=== PATIENT | female | born 1955 | race Caucasian/White ===

== ENCOUNTER 2022-11-18 13:11 | Outpatient (OUT) | payer MEDICARE, SELFPAY ==
--- NOTE | 2022-11-18 13:31 | XR_ITS ---
[facility] [place] [id number] Patient Name: MERCEDES EAGLE MRN: [id number] date: 1955 Sex: F Assigned Patient Location: [facility] Current Patient Location: 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 FINDINGS: BONES:Mild narrowing of the medial joint space and small periarticular degenerative osteophytes. No fracture, dislocation, or bone lesion. SOFT TISSUES:No visible soft tissue swelling. EFFUSION:None visible. OTHER: Negative. IMPRESSION: 1. No acute bone abnormality. 2. Mild-moderate degenerative joint disease. Electronically authenticated by: NOÉ ALEXANDRA Date: 11/18/2022 16:12
== END 2022-11-18 13:12 ==
PROVIDERS: PCP Family Medicine; Visit Provider Family Medicine
DX: M17.12 Unilateral primary osteoarthritis, left knee (principal)
CPT/HCPCS: 73562

== ENCOUNTER 2023-04-27 09:59 | Outpatient (OUT) | payer MEDICARE, SELFPAY ==
--- NOTE | 2023-04-27 10:06 | MM_ITS ---
Patient Name: MERCEDES EAGLE MR#: [id number] : 1955 Exam Date: 04/27/2023 Ordering Doctor: DR ARETHA CRUZ . RADIOLOGY REPORT PROCEDURE: MM TOMOSYNTHESIS SCREENING BI COMPARISON: MG MAMM SCREEN 3D ARCELIA CAD, 04/23/2022. MG MAMM SCREEN 3D ARCELIA CAD, 04/17/2021. MG MAMM SCREEN ARCELIA W CAD, 04/16/2020. MAMMO ARCELIA SCREEN, 02/27/2016. INDICATIONS: Screening Calculator Name NCI Breast Cancer Risk Assessment Tool 5 Year Breast Cancer Risk Not Reported. Lifetime Breast Cancer Risk Not Reported. Personal Breast Cancer No Personal Ovarian Cancer No Treatments None Family Cancers None LOCATION: [facility] BREAST COMPOSITION: Scattered areas fibroglandular density. FINDINGS: DIAGNOSTIC CATEGORY 2--BENIGN FINDING: RIGHT BREAST: No significant suspicious finding. Scattered benign-appearing calcifications are present. No significant change has occurred. LEFT BREAST: No significant suspicious finding. Scattered benign-appearing calcifications are present. No significant change has occurred. RECOMMENDATIONS: ROUTINE MAMMOGRAM AND CLINICAL EVALUATION IN 12 MONTHS. PLEASE NOTE: A NORMAL MAMMOGRAM DOES NOT EXCLUDE THE POSSIBILITY OF BREAST CANCER. A CLINICALLY SUSPICIOUS PALPABLE LUMP SHOULD BE BIOPSIED. Dictated by: Ulises Calderon M.D. on 04/28/2023 at 15:25 Approved by: Ulises Calderon M.D. on 04/28/2023 at 15:27
== END 2023-04-27 10:00 | disposition home or self-care (01) ==
LOC: MAMMO 09:59
PROVIDERS: PCP Family Medicine; Visit Provider Family Medicine
DX: Z12.31 Encounter for screening mammogram for malignant neoplasm of breast (principal)
CPT/HCPCS: 77063; 77067

== ENCOUNTER 2023-08-15 07:15 | Emergency (ER) | payer MEDICARE, SELFPAY ==
[2023-08-15 07:20] VITALS: BP 158/92; PULSE 80; RESP 18; TEMP 36.9; O2SAT 97; BMI 28.5
--- OUTSIDE RECORDS SUMMARY | 2023-08-15 07:22 | XMS_ITS | CCD ---
Author Name Unknown Address [address] [place] [address] Organization [facility] Care Team Providers Care Automotive Refinisher Name Role Phone Olivia Dean Unavailable TIMMY TINSLEY Referring Unavailable TIMMY TINSLEY Attending Unavailable Aretha Brewster Primary Care Physician JESSICA PACHECO Attending Unavailable YAZ ., JESSICA Admitting Unavailable ZIEBAYDEN, DR ULISES Pineda Consulting Unavailable HOY ., DR CARIAS Primary Care Unavailable HAIDER .MAGNO Consulting Unavailable NILL ., DR POE Admitting Unavailable HOY ., DR CARIAS Primary Care Unavailable NILL ., DR POE Consulting Unavailable NILL ., DR POE Attending Unavailable NAKIA TARANGO Consulting Unavailable LILIAN II, AVELINO Consulting Unavailable NILL ., DR POE Attending Unavailable HOY ., DR CARIAS Primary Care Unavailable NILL ., DR POE Admitting Unavailable HOY ., DR CARIAS Admitting Unavailable HOY ., DR CARIAS Primary Care Unavailable HOY ., DR CARIAS Consulting Unavailable HOY ., DR CARIAS Attending Unavailable ZIEBER, DR ULISES Pineda Consulting Unavailable HOY ., DR CARIAS Attending Unavailable HOY ., DR CARIAS Admitting Unavailable HOY ., DR CARIAS Primary Care Unavailable HOY ., DR CARIAS Consulting Unavailable HOY ., DR CARIAS Admitting Unavailable HOY ., DR CARIAS Primary Care Unavailable HOY ., DR CARIAS Consulting Unavailable HOY ., DR CARIAS Attending Unavailable WEST, DR STEPHANIE Olivera Consulting Unavailable HOY ., DR CARIAS Primary Care Unavailable HOY ., DR CARIAS Admitting Unavailable HOY ., DR CARIAS Consulting Unavailable HOY ., DR CARIAS Attending Unavailable ELVER, DR STEPHANIE Olivera Consulting Unavailable Lui GAMINO Attending Unavailable DAYLLui Attending Unavailable Sarah Sargent Unavailable Allergies Allergy Classification Reported Allergen(s) Allergy Type Date of Onset Reaction(s) Facility (4 sources) Erythromycin; Translations: [erythromycin] Drug Allergy GI upset [facility] [place] (5 sources) Latex; Translations: [LATEX] Propensity to adverse reactions 05-15-20 Inflammatory dermatosis (disorder) [facility] Repository (2 sources) Penicillin G Drug Allergy anaphylaxis [facility] Other (3 sources) Penicillins; Translations: [PENICILLINS] Propensity to adverse reactions to drug (disorder) 05-15-20 Anaphylaxis (disorder) [facility] Repository (2 sources) ERYTHROMYCIN BASE; Translations: [ERYTHROMYCIN BASE] Propensity to adverse reactions to drug (disorder) 05-15-20 [facility]ository (1 source) natural latex rubber Drug allergy (disorder) 09-23-19 23 [facility] Repository (1 source) Penicillin Drug Allergy [facility] Repository Medications Current Medications Medication Drug Class(es) Dates Sig (Normalized) Sig (Original) aspirin 81 mg delayed release oral tablet (1 source) Platelet Aggregation Inhibitor, Nonsteroidal Anti-inflammatory Drug Start: 09-10-2022 take 1 tablet by mouth once daily aspirin 81 mg Oral EC Tab 81 mg = 1 tab(s), Oral, Daily, Refills(s) 0 Start Date: 09/10/22 Status: Ordered calcium carbonate 1500 mg oral tablet (1 source) Start: 08-29-2022 calcium (as carbonate) 600 mg oral tablet 1,200 mg = 2 tab(s), Oral, Daily, Refills(s) 0 Start Date: 08/29/22 Status: Ordered celecoxib 400 mg oral capsule (2 sources) Nonsteroidal Anti-inflammatory Drug Start: 08-29-2022 take 1 capsule by mouth once daily Celebrex 400 mg oral capsule 400 mg = 1 cap(s), Oral, Daily, Refills(s) 0 Start Date: 08/29/22 Status: Ordered CeleBREX Active cephalexin 500 mg oral capsule (1 source) Cephalosporin Antibacterial Start: 11-12-2021 take 1 capsule by mouth every eight hours Cephalexin 500 MG 1 capsule Orally three times a day for 10 day(s) October, Active dextromethorphan hydrobromide 1.5 mg/ml / pyrilamine maleate 1.5 mg/ml oral solution (1 source) Uncompetitive S-twucaa-X-aspartat e 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, Sigma-1 Agonist Start: 06-14-2023 take 10 mL by mouth every eight hours [place] DM 7.5-7.5 MG/5ML 10 mL Orally every 8 hours for 5 days May, Active Multi Vitamins oral tablet (1 source) Start: 09-10-2022 take 1 tablet by mouth once daily Multi Vitamins oral tablet 1 tab(s), Oral, Daily, Refill(s) 0 Start Date: 09/10/22 Status: Ordered nitroglycerin 0.4 mg sublingual tablet (1 source) Nitrate Vasodilator Start: 08-29-2022 nitroglycerin 0.4 mg sublingual Tab 0.4 mg = 1 tab(s), SubLingual, q5min, PRN for chest pain, Refills(s) 0 Start Date: 08/29/22 Status: Ordered pantoprazole 40 mg delayed release oral tablet (2 sources) Proton Pump Inhibitor Start: 08-29-2022 take 1 tablet by mouth once daily Protonix 40 mg Tab-DR 40 mg = 1 tab(s), Oral, Daily, Refills(s) 0 Start Date: 08/29/22 Status: Ordered predniSONE 20 mg oral tablet (1 source) take 1 tablet by mouth every twenty-four hours predniSONE 20 MG 1 tablet Orally Once a day Active triamcinolone acetonide 1 mg/ml topical cream (1 source) Corticosteroid Start: 11-12-2021 Triamcinolone Acetonide 0.1 % 1 application Externally 2 times a day for 7 day(s) Apply a small amount to the insect bite on the left lower leg twice a day for 7 days October, Active Vitamin D3 2000 intl units oral Tab (1 source) Start: 08-29-2022 take 1 tablet by mouth once daily Vitamin D3 2000 intl units oral Tab 50 mcg, Oral, Daily, tab(s), Refills(s) 0 Start Date: 08/29/22 Status: Ordered Problems Active Problems Problem Classification Problem Date Documented Date Episodic/Chronic Cardiac dysrhythmias (1 source) Bradycardia 08-29-2022 Episodic Disorders of lipid metabolism (1 source) Hyperlipidemia, unspecified; Translations: [HYPERLIPIDEMIA UNSPECIFIED] Onset: 01-14-2022 Chronic Esophageal disorders (2 sources) Gastroesophageal reflux disease; Translations: [Gastro-esophageal reflux disease without esophagitis] Onset: 10-02-2022 08-29-2022 Chronic Menopausal disorders (4 sources) Other primary ovarian failure; Translations: [OTHER PRIMARY OVARIAN FAILURE] Onset: 04-28-2022 Chronic Osteoarthritis (1 source) Osteoarthritis 08-29-2022 Chronic Other aftercare (1 source) ocean transportation intermediary (current) use of aspirin; Translations: [DIRECTOR BIOMEDICAL ENGINEERING CURRENT USE OF ASPIRIN] Onset: 10-02-2022 Episodic Other connective tissue disease (2 sources) Presence of left artificial hip joint; Translations: [Presence of left artificial hip joint] Onset: 05-15-2022 Chronic Other nutritional; endocrine; and metabolic disorders (1 source) Body mass index 30+ - obesity 09-10-2022 Chronic Other screening for suspected conditions (not mental disorders or infectious disease) (9 sources) Screening for malignant neoplasm of colon done; Translations: [Encounter for screening for malignant neoplasm of colon] Onset: 04-23-2022 Episodic Other upper respiratory disease (2 sources) Seasonal allergy; Translations: [Other seasonal allergic rhinitis] Chronic Other upper respiratory disease (1 source) Seasonal allergic rhinitis 08-29-2022 Chronic Other upper respiratory disease (1 source) Nasal congestion Episodic Unclassified (1 source) Patient encounter status 09-10-2022 Viral infection (1 source) Other specified viral diseases Episodic Past or Other Problems Problem Classification Problem Date Documented Da te Episodic/Chronic Deficiency and other anemia (1 source) Anemia, unspecified; Translations: [ANEMIA UNSPECIFIED] Onset: 01-14-2022 Episodic Diabetes mellitus without complication (1 source) Other abnormal glucose; Translations: [OTHER ABNORMAL GLUCOSE] Onset: 01-14-2022 Episodic E Codes: Natural/environment (1 source) Bitten or stung by nonvenomous insect and other nonvenomous arthropods, initial encounter Onset: 11-12-2021 Resolved: 11-12-2021 Episodic Malaise and fatigue (1 source) Other fatigue; Translations: [OTHER FATIGUE] Onset: 01-14-2022 Episodic Nonspecific chest pain (7 sources) Chest pain, unspecified; Translations: [Other chest pain] Onset: 03-24-2022 Episodic Other aftercare (1 source) Other skilled nursing (current) drug therapy; Translations: [OT DIRECTOR BIOMEDICAL ENGINEERING CURRENT DRUG THERAPY] Onset: 01-14-2022 Episodic Other bone disease and musculoskeletal deformities (1 source) Other specified disorders of bone density and structure, unspecified site; Translations: [[facility] D/O BONE DEN STRUCT UNS SITE] Onset: 05-01-2022 Episodic Screening and history of mental health and substance abuse codes (1 source) Personal history of nicotine dependence; Translations: [PERSONAL HISTORY OF NICOTINE DEPEND] Onset: 03-26-2022 Episodic Superficial injury; contusion (1 source) Insect bite (nonvenomous), left lower leg, initial encounter Onset: 11-12-2021 Resolved: 11-12-2021 Episodic Results Test Name Value Interpretation Reference Range Facility COVID/FLU/RSV RT-PCRon 06-14 SARS-CoV-2 (COVID-19) RNA VIVEK+probe Ql (Unsp spec) Negative [facility] Other COVID/FLU/RSV RT-PCR Negative [facility] Other [facility]FLU[facility] Other Outside Colonoscopyon 2022 Outside Colonoscopy [id number] 0#1.00CD:127 [facility] Reminderson 10-02-2022 Reminders - From: Kisha Samuel LPN To: N - Clinical; Sent: 10/02/2022 08:43:18 EDT Show up: 08/31/2032 07:00:00 EDT Subject: colonoscopy recall Due Date/Time: 10/01/2032 07:00:00 EDT Reminder/Recall Patient is due for screening colonoscopy 10/01/2032. [facility] Consent for Procedure/Surger yon 09-11-2022 Consent for Procedure/Surgery [id number] #1.00CD:127 [facility] Facesheeton 09-11-2022 Facesheet [id number] #1.00CD:127 [facility] Pre-Certification Formon Pre-Certification Form [id number] 1#1.00CD:127 [facility] Ambulatory Visit Summaryon 0 09-10-2022 Ambulatory Visit Summary BRIE EAGLE :1955 Visit Date:09/10/2022 Ambulatory Visit Instructions Your Care Team Attending Physician - ТАТЬЯНА HERNANDEZ, Lui Pineda Primary Care Physician - Ney HERNANDEZ, Aretha This Is Your Medications List Contact prescribing physician if questions or concerns aspirin (aspirin 81 mg Oral EC Tab) calcium carbonate (calcium (as carbonate) 600 mg oral tablet) celecoxib (Celebrex 400 mg oral capsule) cholecalciferol (Vitamin D3 2000 intl units oral Tab) multivitamin (Multi Vitamins oral tablet) nitroglycerin (nitroglycerin 0.4 mg sublingual Tab) pantoprazole (Protonix 40 mg Tab-DR) Procedures Performed Arthroplasty of the hip, Arthroscopy of knee, Arthroscopy of knee, Breast reduction, Colonoscopy, Colonoscopy, Dilatation of esophageal stricture, EGD - Esophagogastroduoden oscopy, EGD - Esophagogastroduoden oscopy, Tubal ligation. Discharge Vitals Heart Rate (Peripheral) 72 Respiratory Rate 16 Blood Pressure 138/64 Height 161.0 cm Height 63 in Weight 79 kg Weight 173.8 lb BMI 30.48 Medications What How Much When Instructions Unchanged aspirin (aspirin 81 mg Oral EC Tab) 1 Tablets By Mouth Every day Contact prescribing physician if questions or concerns Unchanged calcium carbonate (calcium (as carbonate) 600 mg oral tablet) 2 Tablets By Mouth Every day Contact prescribing physician if questions or concerns Unchanged celecoxib (Celebrex 400 mg oral capsule) 1 Capsules By Mouth Every day Contact prescribing physician if questions or concerns Unchanged cholecalciferol (Vitamin D3 2000 intl units oral Tab) 50 Microgram By Mouth Every day Contact prescribing physician if questions or concerns Unchanged multivitamin (Multi Vitamins oral tablet) 1 Tablets By Mouth Every day Contact prescribing physician if questions or concerns Unchanged nitroglycerin (nitroglycerin 0.4 mg sublingual Tab) 1 Tablets Sublingual Every 5 minutes as needed for for chest pain Contact prescribing physician if questions or concerns Unchanged pantoprazole (Protonix 40 mg Tab-DR) 1 Tablets By Mouth Every day Contact prescribing physician if questions or concerns Allergies Latex (Dermatitis) erythromycin (GI upset) penicillins (Anaphylaxis) Problems Ongoing - Any problem that you are currently receiving treatment for. BMI 30.0-30.9,adult Bradycardia GERD (gastroesophageal reflux disease) Osteoarthritis Seasonal allergic rhinitis Normal [facility] Physician Referralon 023 Physician Referral [id number] #1.00CD:127 Normal [facility] Follow-Upon 05-15-2022 Follow-Up [id number] Brie Eagle 1955 F Date Provider Department Center 05/15/2022 Piedad-TIMMY TINSLEY MP ORTHO MPORTHO Family History Problem Relation Age of Onset Diabetes Mother Heart disease Mother Arthritis Mother No Known Problems Father Family Status - Relation Status Age at Mother Father Level of Service:91275 [place] OFFICE/OUTPATIENT ESTABLISHED LOW [facility] 20-29 MIN Reason for Visit and Comments: Follow-up [963626] - Yearly follow up Normal [facility] XR DEXA BONE DENSITYon 04-28 XR DEXA BONE DENSITY EXAMINATION: XR DEX A BONE DENSITY, 04/28/2022 8:37 AM EST HISTORY: Primary ovarian failure COMPARISON: None. TECHNIQUE: Dual-energy X-ray absorptiometry (DEXA) bone density study performed for the axial skeleton. FINDINGS: Bone mineral the AP spine L1-L4 measures 1.299 g/sq cm. T score 1.0. WHO classification: Normal. Lowest bone mineral density right femoral neck measuring 0.741 g/sq cm. T score -2.1. WHO classification: Osteopenia. IMPRESSION: Osteopenia. Moderate fracture risk Electronically authenticated by: STEPHANIE RAYA Date: 2022-04-28 17:04 Normal [facility] MG MAMM SCREEN 3D ARCELIA CADon 04-23-2022 MG MAMM SCREEN 3D ARCELIA CAD Patient: BRIE EAGLE Exam Date: 04/23/2022 : 1955 Gender:F Ordering : DR ARETHA BREWSTER . Admission #: [id number] Family : Order #: [id number] CLICK HERE TO VIEW EXAM RADIOLOGY REPORT PROCEDURE: MAMMOGRAM SCREENING 3D BILATERAL CAD COMPARISON: MG MAMM SCREEN 3D ARCELIA CAD, 04/17/2021. INDICATIONS: Screening mammography Calculator Name NCI Breast Cancer Risk Assessment Tool 5 Year Breast Cancer Risk Not Reported. Lifetime Breast Cancer Risk Not Reported. Personal Breast Cancer No Personal Ovarian Cancer No Treatments None Family Cancers None LOCATION: [facility] BREAST COMPOSITION: Scattered areas fibroglandular density. FINDINGS: DIAGNOSTIC CATEGORY 1--NEGATIVE. NO CHANGE FROM COMPARISON ASSESSMENT. Scattered benign-appearing calcifications are present. Scattered benign-appearing lymph nodes are present. RIGHT BREAST: No significant suspicious finding. LEFT BREAST: No significant suspicious finding. RECOMMENDATIONS: ROUTINE MAMMOGRAM AND CLINICAL EVALUATION IN 12 MONTHS. PLEASE NOTE: A NORMAL MAMMOGRAM DOES NOT EXCLUDE THE POSSIBILITY OF BREAST CANCER. A CLINICALLY SUSPICIOUS PALPABLE LUMP SHOULD BE BIOPSIED. Dictated by: Stephanie Raya MD on 04/23/2022 at 13:09 Approved by: Stephanie Raya MD on 04/23/2022 at 13:10 Normal [facility] NM STRESS/REST MULTIon 04-10 NM STRESS/REST MULTI Patient: BRIE EAGLE Exam Date: 04/10/2022 : 1955 Gender:F Ordering : DR ARETHA BREWSTER . Admission #: [id number] Family : Order #: [id number] CLICK HERE TO VIEW EXAM RADIOLOGY REPORT PROCEDURE: RADIONUCLIDE IMAGING STRESS/REST MULTI COMPARISON: None. INDICATIONS: Chest pain TECHNIQUE: Exam Description: Stress/Rest one day protocol gated SPECT Rest Imagin.6 mCi Tc-99m Cardiolite IV on 04/10/2022 Stress Imaging 32.2 mCi Tc-99m Cardiolite IV on 04/10/2022 Exercise Protocol: Eder Heart Rate (bpm): Rest: 76 Max: 171 PMHR: 110 Blood Pressure: Rest: 132/84 Max: 212/90 Exercise Time: Minutes: 7 Seconds: 30 Stage Reached: Stage: 3 Mets 10.1 Symptoms: shortness of breath Rest and peak stress ECG findings were normal and the exercise portion of the study was normal per attending physician Dr. Yung . For more details please see separate cardiac stress test report. FINDINGS: QUALITY OF STUDY: Excellent. PERFUSION DEFECT: None. LOCATION: N/A SIZE: N/A. SEVERITY: N/A. TYPE: N/A. WALL MOTION: Normal. LV SIZE: Normal. 48 mL. TID / TCD: None; 0.6 LVEF: Normal. Calculated EF 84%. SUMMARY: Myocardial perfusion imaging study is NORMAL. CONCLUSION: 1. Normal nuclear medicine myocardial perfusion scan. Dictated by: Ulises Calderon M.D. on 04/10/2022 at 13:49 Approved by: Ulises Calderon M.D. on 04/10/2022 at 13:53 Normal [facility] AMYLASEon 03-24-2022 Amylase [Catalytic activity/Vol] 51 U/L Normal 25-115 [facility] Comment on above: Performed By: #### A MY, LIPA, CMADM, HSTROPN #### [facility] [address] [address] [address] Christos Richardson CARDIAC MONA ADMITon 022 CK [Catalytic activity/Vol] 67 U/L Normal 26-192 [facility] Comment on above: Performed By: #### A MY, LIPA, CMADM, HSTROPN #### [facility] [address] [address] [address] Christos Richardson CK.MB [Mass/Vol] 0.93 ng/mL Normal <=3.60 [facility] Comment on above: Performed By: #### A MY, LIPA, CMADM, HSTROPN #### [facility] [address] [address] [address] Christos Richardson GAYATHRI 32 ng/mL Normal 9-82 [facility] Comment on above: Performed By: #### A MY, LIPA, CMADM, HSTROPN #### [facility] [address] [address] [address] Christos Richardson CBC AUTO DIFFon 03-24-2022 BASO # 0.1 103/ul Normal 0.0-0.1 [facility] Comment on above: Performed By: #### C BC ####[facility] [address] [address]Dr. Christos Richardson Basophils/100 WBC (Bld) 0.7 % Normal 0.2-2.0 [facility] Comment on above: Performed By: #### C BC ####[facility] [address] [address]Dr. Christos Richardson EO # 0.1 103/ul Normal 0.0-0.7 [facility] Comment on above: Performed By: #### C BC ####[facility] [address] [address]Dr. Christos Richardson Eosinophils/100 WBC (Bld) 0.8 % Critically low 0.9-7.0 [facility] Comment on above: Performed By: #### C BC ####[facility] [address] [place], [place] [address]Dr. Christos Richardson Erythrocyte distribution width (RBC) [Ratio] 13.4 % Normal 11.0-15.0 [facility] Comment on above: Performed By: #### C BC ####[facility] [address] [place], [place] [address]Dr. Christos Richardson Hematocrit (Bld) [Volume fraction] 40.9 % Normal 36.0-48.0 [facility] Comment on above: Performed By: #### C BC ####[facility] [address] [place], [place] [address]Dr. Christos Richardson Hemoglobin (Bld) [Mass/Vol] 13.3 g/dL Normal 12.0-16.0 [facility] Comment on above: Performed By: #### C BC ####[facility] [address] [place], [place] [address]Dr. Christos Richardson IG # 0.02 10e3/ul Normal 0.00-0.03 [facility] Comment on above: Performed By: #### C BC ####[facility] [address] [place], [place] [address]Dr. Christos Richardson IG % 0.3 % Normal 0.0-0.5 [facility] Comment on above: Performed By: #### C BC ####[facility] [address] [place], [place] [address]Dr. Devoramarissa Richardson LYMPH # 2.3 103/ul Normal 1.2-3.8 [facility] Comment on above: Performed By: #### C BC ####[facility] [address] [id number]. Christos Dylan Lymphocytes/100 WBC (Bld) 32.6 % Normal 20.5-60.0 [facility] Comment on above: Performed By: #### C BC ####[facility] [address] [id number]. Christos Richardson MANUAL DIFF REQ NO Normal [facility] Comment on above: Performed By: #### C BC ####[facility] [address] [id number]. Christos Dylan MCH (RBC) [Entitic mass] 29.2 pg Normal 26.7-34.0 [facility] Comment on above: Performed By: #### C BC ####[facility] [address] [id number]. Christos Dylan MCHC (RBC) [Mass/Vol] 32.5 g/dL Normal 29.9-35.2 [facility] Comment on above: Performed By: #### C BC ####[facility] [address] [id number]. Devoramarissa Richardson MCV (RBC) [Entitic vol] 89.9 fL Normal 81.0-99.0 [facility] Comment on above: Performed By: #### C BC ####[facility] [address] [id number]. Christos Richardson MONO # 1.0 103/ul Critically high 0.3-0.8 [facility] Comment on above: Performed By: #### C BC ####[facility] [address] [id number]. Christos Richardson Monocytes/100 WBC (Bld) 14.2 % Critically high 1.7-12.0 [facility] Comment on above: Performed By: #### C BC ####[facility] [address] [id number]. Christos Richardson NEUT # 3.7 103/ul Normal 1.4-6.5 [facility] Comment on above: Performed By: #### C BC ####[facility] [address] [id number]. Christos Richardson Neutrophils/100 WBC (Bld) 51.4 % Normal 43.0-75.0 [facility] Comment on above: Performed By: #### C BC ####[facility] [address] [id number]. Christos Richardson Platelet mean volume (Bld) [Entitic vol] 9.7 fL Normal 9.5-13.5 [facility] Comment on above: Performed By: #### C BC ####[facility] [address] [id number]. Christos Richardson PLT 271 103/ul Normal 150-450 [facility] Comment on above: Performed By: #### C BC ####[facility] [address] [id number] Richardson RBC 4.55 106/ul Normal 4.20-5.40 [facility] Comment on above: Performed By: #### C BC ####[facility] [address] [id number]. Christos Richardson WBC 7.1 103/ul Normal 4.0-11.0 [facility] Comment on above: Performed By: #### C BC ####[facility] [address] [id number]. Christos Richardson LIPASEon 03-24-2022 Lipase [Catalytic activity/Vol] 104.0 U/L Normal 73.0-393.0 [facility] Comment on above: Performed By: #### A MY, LIPA, CMADM, HSTROPN #### [facility] [address] [place], [place] [address] Dr. Christos Richardson TROPONIN, HIGH SENSITIVITYon 03-24-2022 HSTROP 6.6 pg/mL Normal 4.0-51.3 [facility] Comment on above: Result Comment: CUT- OFF POINTS HAVE BEEN ESTABLISHED BASED ON THE FOURTH UNIVERSAL DEFINITIONS OF MYOCARDIAL INFARCTION. THE UPPER REFERENCE LIMIT (URL) OF TROPONIN, DEFINED THE 99TH PERCENTILE OF cTnI DISTRIBUTION IN A REFERENCE POPULATION, HAS BEEN CONFIRMED THE DECISION THRESHOLD FOR [place] DIAGNOSIS. Performed By: #### H STROPN ####[facility] [address] [place], [place] [address]XcDr. Christos Richardson HSTROP 6.3 pg/mL Normal 4.0-51.3 [facility] Comment on above: Result Comment: CUT- OFF POINTS HAVE BEEN ESTABLISHED BASED ON THE FOURTH UNIVERSAL DEFINITIONS OF MYOCARDIAL INFARCTION. THE UPPER REFERENCE LIMIT (URL) OF TROPONIN, DEFINED THE 99TH PERCENTILE OF cTnI DISTRIBUTION IN A REFERENCE POPULATION, HAS BEEN CONFIRMED THE DECISION THRESHOLD FOR [place] DIAGNOSIS. Performed By: #### A MY, LIPA, CMADM, HSTROPN #### [facility] [id number] Christos Richardson XR CHEST 1 Von 03-24-2022 XR CHEST 1 V EXAMINATION: XR CHEST 1 V HISTORY: CHEST PAIN, UNSPECIFIED ; intermittent chest pressure COMPARISON: No relevant comparison available. FINDINGS: LUNGS: No significant pulmonary parenchymal abnormalities. VASCULATURE: No increased pulmonary vasculature. PLEURA: No pneumothorax, effusion, or pleural thickening. CARDIAC: No cardiomegaly or cardiac silhouette abnormality. MEDIASTINUM: No visible mass or adenopathy. BONES: No fracture or visible bone lesion. OTHER: Negative. IMPRESSION: 1. No acute cardiopulmonary process. Electronically authenticated by: ULISES CALDERON Date: 2022-03-24 13:53 Normal [facility] INSULINon 01-09-2022 Insulin 10.4 uIU/mL Normal 2.6-24.9 The [facility] Comment on above: Performed By: #### I NSULIN #### [facility] [address] [place], [place] [address] Dr. Christos Richardson CBC AUTO DIFFon 01-08-2022 BASO # 0.1 103/ul Normal 0.0-0.1 The [facility] Comment on above: Performed By: #### C BC #### [facility] [address] [place], [place] [address] Dr. Christos Richardson Basophils/100 WBC (Bld) 0.8 % Normal 0.2-2.0 The [facility] Comment on above: Performed By: #### C BC #### [facility] [address] [address] [address] Christos Richardson EO # 0.1 103/ul Normal 0.0-0.7 The [facility] Comment on above: Performed By: #### C BC #### [facility] [address] [place] [address] Dr. Christos Richardson Eosinophils/100 WBC (Bld) 1.5 % Normal 0.9-7.0 [facility] Comment on above: Performed By: #### C BC #### [facility] [address] [place] [address] Dr. Christos Richardson Erythrocyte distribution width (RBC) [Ratio] 13.6 % Normal 11.0-15.0 [facility] Comment on above: Performed By: #### C BC #### [facility] [address] [place] [address] Dr. Christos Richardson Hematocrit (Bld) [Volume fraction] 40.4 % Normal 36.0-48.0 [facility] Comment on above: Performed By: #### C BC #### [facility] [address] [place] [address] Dr. Christos Richardson Hemoglobin (Bld) [Mass/Vol] 12.9 g/dL Normal 12.0-16.0 [facility] Comment on above: Performed By: #### C BC #### [facility] [address] [place] [address] Dr. Christos Richardson IG # 0.01 10e3/ul Normal 0.00-0.03 The [facility] Comment on above: Performed By: #### C BC #### [facility] [address] [place] [address] Dr. Christos Richardson IG % 0.2 % Normal 0.0-0.5 The [facility] Comment on above: Performed By: #### C BC #### [facility] [address] [place] [address] Dr. Christos Richardson LYMPH # 2.4 103/ul Normal 1.2-3.8 The [facility] Comment on above: Performed By: #### C BC #### [facility] [address] [place] [address] Dr. Christos Richardson Lymphocytes/100 WBC (Bld) 39.7 % Normal 20.5-60.0 The [facility] Comment on above: Performed By: #### C BC #### [facility] [address] [place] [address] Dr. Christos Richardson MANUAL DIFF REQ NO Normal The [facility] Comment on above: Performed By: #### C BC #### [facility] [address] [place] [address] Dr. Christos Richardson MCH (RBC) [Entitic mass] 29.0 pg Normal 26.7-34.0 The [facility] Comment on above: Performed By: #### C BC #### [facility] [address] [place] [address] Dr. Christos Richardson MCHC (RBC) [Mass/Vol] 31.9 g/dL Normal 29.9-35.2 The [facility] Comment on above: Performed By: #### C BC #### [facility] [address] [place] [address] Dr. Christos Richardson MCV (RBC) [Entitic vol] 90.8 fL Normal 81.0-99.0 The [facility] Comment on above: Performed By: #### C BC #### [facility] [address] [place] [address] Dr. Christos Richardson MONO # 0.8 103/ul Normal 0.3-0.8 The [facility] Comment on above: Performed By: #### C BC #### [facility] [address] [place] [address] Dr. Christos Richardson Monocytes/100 WBC (Bld) 13.5 % Critically high 1.7-12.0 The [facility] Comment on above: Performed By: #### C BC #### [facility] [address] [place] [address] Dr. Christos Richardson NEUT # 2.7 103/ul Normal 1.4-6.5 The [facility] Comment on above: Performed By: #### C BC #### [facility] [address] [place] [address] Dr. Christos Richardson Neutrophils/100 WBC (Bld) 44.3 % Normal 43.0-75.0 [facility] Comment on above: Performed By: #### C BC #### [facility] [address] [place] [address] [address] Christos Richardson Platelet mean volume (Bld) [Entitic vol] 10.4 fL Normal 9.5-13.5 The [facility] Comment on above: Performed By: #### C BC #### [facility] [address] [place] [address] [address] Christos Richardson PLT 287 103/ul Normal 150-450 The [facility] Comment on above: Performed By: #### C BC #### [facility] [address] [place] [address] [address] Christos Richardson RBC 4.45 106/ul Normal 4.20-5.40 The [facility] Comment on above: Performed By: #### C BC #### [facility] [address] [place] [address] [address] Christos Richardson WBC 6.1 103/ul Normal 4.0-11.0 [facility] Comment on above: Performed By: #### C BC #### [facility] [address] [place] [address] [address] Christos Richardson FREE THYROXINE INDEX T7on FTI 2.00 Normal 1.30-4.50 The [facility] Comment on above: Performed By: #### C MP, T7, LIPID, TSH ####[facility] [address] [place] [id number]. Christos Richardson T3U 35.0 % Normal 30.0-39.0 The [facility] Comment on above: Performed By: #### C MP, T7, LIPID, TSH ####[facility] [address] [place] [id number]. Christos Richardson T4 [Mass/Vol] 5.70 ug/dL Normal 4.80-13.90 The [facility] Comment on above: Performed By: #### C MP, T7, LIPID, TSH ####[facility] [address] [place] [id number]. Christos Richardson GLYCOHEMOGLOBIN A1Con 2021 ADA RECOMMENDATION SEE BELOW Normal The [facility] Comment on above: Result Comment: ADA RECOMMENDED LIMIT 4.0 - 6.0 ADA THERAPEUTIC TARGET < 7.0 ACTION SUGGESTED > 7.0 Performed By: #### A 1C ####[facility] [address] [place] [id number]. Christos Richardson Glucose [Mass/Vol] 114 mg/dL Normal The [facility] Comment on above: Performed By: #### A 1C ####[facility] [address] [place], [place] [address]Dr. Christos Richardson HbA1c (Bld) [Mass fraction] 5.6 % Normal 4.5-6.2 [facility] Comment on above: Performed By: #### A 1C ####[facility] [address] [place], [place] [address]Dr. Christos Richardson IRONon 01-08-2022 Iron [Mass/Vol] 100.0 ug/dL Normal 50.0-170.0 [facility] Comment on above: Performed By: #### I BLANCO ####[facility] [address] [place], [place] [address]Dr. Christos Richardson LIPID PROFILEon 01-08-2022 CHOL-HDL RATIO NORM SEE BELOW Normal [facility] Comment on above: Result Comment: 3.3 - 4.4 LOW RISK 4.4 - 7.1 AVERAGE RISK 7.1 - 11.0 MODERATE RISK >11.0 HIGH RISK Performed By: #### C MP, T7, LIPID, TSH ####[facility] [address] [place] [id number]. Christos Richardson Cholesterol [Mass/Vol] 187 mg/dL Normal <=200 The [facility] Comment on above: Performed By: #### C MP, T7, LIPID, TSH ####[facility] [address] [place] [id number]. Christos Richardson Cholesterol in HDL [Mass/Vol] 63 mg/dL Critically high 40-60 [facility] Comment on above: Performed By: #### C MP, T7, LIPID, TSH ####[facility] [address] [place] [id number]. Christos Richardson Cholesterol in LDL [Mass/Vol] 110.8 mg/dL Normal [facility] Comment on above: Performed By: #### C MP, T7, LIPID, TSH ####[facility] [address] [place] [id number]. Christos Richardson Cholesterol.total/Ch olesterol in HDL [Mass ratio] 3.0 {ratio} Normal The [facility] Comment on above: Performed By: #### C MP, T7, LIPID, TSH ####[facility] [address] [place] [id number]. Christos Richardson HDL NORMAL > or = 60 mg/dl - LOW CARDIOVASCULAR RISK <40 mg/dl - HIGH CARDIOVASCULAR RISK Normal [facility] Comment on above: Performed By: #### C MP, T7, LIPID, TSH ####[facility] [address] [place] [address]Dr. Christos Richardson LDL CALC NORMAL SEE BELOW Normal The [facility] Comment on above: Result Comment: <100 mg/dl OPTIMAL 100 - 129 mg/dl NEAR OR ABOVE OPTIMAL 130 - 159 mg/dl BORDERLINE HIGH 160 - 189 mg/dl HIGH >190 mg/dl VERY HIGH Performed By: #### C MP, T7, LIPID, TSH ####[facility] [address] [place] [id number]. Christos Richardson Triglyceride [Mass/Vol] 66 mg/dL Normal <=150 The [facility] Comment on above: Performed By: #### C MP, T7, LIPID, TSH ####[facility] [address] [place] [id number]. Christos Richardson VLDL CALC 13.2 mg/dL Normal [facility] Comment on above: Performed By: #### C MP, T7, LIPID, TSH ####[facility] [address] [place] [id number]. Christos Richardson PROF 14(COMP METB)on 022 Albumin [Mass/Vol] 3.4 g/dL Normal 3.4-5.0 [facility] Comment on above: Performed By: #### C MP, T7, LIPID, TSH ####[facility] [address] [place] [address]Dr. Chrisots Richardson Albumin/Globulin [Mass ratio] 0.9 {ratio} Normal [facility] Comment on above: Performed By: #### C MP, T7, LIPID, TSH ####[facility] [address] [place] [address]Dr. Christos Richardson ALP [Catalytic activity/Vol] 79 U/L Normal 46-116 The [facility] Comment on above: Performed By: #### C MP, T7, LIPID, TSH ####[facility] [address] [place] [address]Dr. Christos Richardson ALT [Catalytic activity/Vol] 22 U/L Normal 14-59 [facility] Comment on above: Performed By: #### C MP, T7, LIPID, TSH ####[facility] [address] [place], [place] [address]Dr. Christos Richardson Anion gap [Moles/Vol] 11.5 mmol/L Normal [facility] Comment on above: Performed By: #### C MP, T7, LIPID, TSH ####[facility] [address] [place], [place] [address]Dr. Devoramarissa Richardson AST [Catalytic activity/Vol] 16 U/L Normal 15-37 [facility] Comment on above: Performed By: #### C MP, T7, LIPID, TSH ####[facility] [address] [place], [place] [address]Dr. Christos Richardson Bilirubin [Mass/Vol] 0.3 mg/dL Normal 0.2-1.0 The [facility] Comment on above: Performed By: #### C MP, T7, LIPID, TSH ####[facility] [address] [place], [place] [address]Dr. Christos Richardson Calcium [Mass/Vol] 9.1 mg/dL Normal 8.5-10.1 [facility] Comment on above: Performed By: #### C MP, T7, LIPID, TSH ####[facility] [address] [place] [address]Dr. Christos Richardson Chloride [Moles/Vol] 106 mmol/L Normal 98-107 The [facility] Comment on above: Performed By: #### C MP, T7, LIPID, TSH ####[facility] [address] [place], [place] [address]Dr. Christos Richardson CO2 [Moles/Vol] 27.7 mmol/L Normal 21.0-32.0 The [facility] Comment on above: Performed By: #### C MP, T7, LIPID, TSH ####[facility] [address] [place], [place] [address]Dr. Christos Richardson Creatinine [Mass/Vol] 0.75 mg/dL Normal 0.55-1.02 The [facility] Comment on above: Performed By: #### C MP, T7, LIPID, TSH ####[facility] [address] [place], [place] [address]Dr. Christos Richardson EGFR-AF SERBIAN >60 Normal >=60 The [facility] Comment on above: Performed By: #### C MP, T7, LIPID, TSH ####[facility] [address] [place], [place] [address]Dr. Christos Richardson EGFR-NON AF SERBIAN >60 Normal >=60 [facility] Comment on above: Performed By: #### C MP, T7, LIPID, TSH ####[facility] [address] [place], [place] [address]Dr. Christos Richardson Globulin (S) [Mass/Vol] 3.9 g/dL Normal The [facility] Comment on above: Performed By: #### C MP, T7, LIPID, TSH ####[facility] [address] [place] [address]Dr. Christos Richardson Glucose [Mass/Vol] 95 mg/dL Normal 74-106 The [facility] Comment on above: Performed By: #### C MP, T7, LIPID, TSH ####[facility] [address] [place] [address]Dr. Christos Richardson Potassium [Moles/Vol] 4.2 mmol/L Normal 3.5-5.1 The [facility] Comment on above: Performed By: #### C MP, T7, LIPID, TSH ####[facility] [address] [place] [address]Dr. Christos Richardson Protein [Mass/Vol] 7.3 g/dL Normal 6.4-8.2 [facility] Comment on above: Performed By: #### C MP, T7, LIPID, TSH ####[facility] [address] [place] [address]Dr. Christos Richardson Sodium [Moles/Vol] 141 mmol/L Normal 136-145 The [facility] Comment on above: Performed By: #### C MP, T7, LIPID, TSH ####[facility] [address] [place] [address]Dr. Christos Richardson Urea nitrogen [Mass/Vol] 15.0 mg/dL Normal 7.0-18.0 [facility] Comment on above: Performed By: #### C MP, T7, LIPID, TSH ####[facility] [address] [place] [address]Dr. Christos Richardson Urea nitrogen/Creatinine [Mass ratio] 20.0 mg/mg Normal The [facility] Comment on above: Performed By: #### C MP, T7, LIPID, TSH ####[facility] [address] [place] [address]Dr. Christos Richardson TSHon 01-08-2022 TSH 3.880 uIU/mL Critically high 0.358-3.740 The [facility] Comment on above: Performed By: #### C MP, T7, LIPID, TSH ####[facility] [address] [place] [address]Dr. Christos Richardson HIP LEFT 1 OR 2 VWS WITH PEL VISon 05-29-2021 HIP LEFT 1 OR 2 VWS WITH PELVIS [facility] Department of Radiology [address] [place] [id number] Patient Name: BRIE EAGLE : 1955 Sex: F Age: Race: White Pt. Location: Patient Status: D Ordered Date: 05/29/2021 1:05:00 PM Completed Date: 05/29/2021 01:30 PM Requesting Provider: TIMMY TINSLEY Attending Provider: Report Copy To: Signs & Symptoms: Z47.1 Aftercare following joint replacement surgery I10 History: Comments: evaluate Exam: HIP LEFT 1 OR 2 VWS WITH PELVIS HIP LEFT 1 OR 2 VWS WITH PELVIS 05/29/2021 1:30 PM SIGNS AND SYMPTOMS: Z47.1 Aftercare following joint replacement surgery I10 TECHNOLOGIST COMMENTS: left hip surgery 10/11/20 follow up QUESTION FOR THE RADIOLOGIST: evaluate PROTOCOL: AP(PA) and Lateral views were obtained. COMPARISON: 10/11/2020 FINDINGS: Total left hip arthroplasty is noted that appears in anatomic alignment and without complication. Pelvic ring is intact. There is age compatible degenerative changes sacroiliac joints and right hip. IMPRESSION: * Uncomplicated appearance of left hip prosthesis. Electronically signed: Eder Crowder. Transcribed by: [email or web address], User Resident: EDER CROWDER Electronically Signed by: EDER CROWDER @ 05/30/2021 12:27 PM I personally read this/these film(s) with this resident Normal The [facility] Comment on above: Order Comment: evalu ate Vital Signs Date Time Vital Sign Value Performing Clinician Facility 06-14-2023 09:30-0500 Body height 162.56 cm Sarah Sargent Other [facility] Other 06-14-2023 09:30-0500 Body mass index (BMI) [Ratio] 30.65 kg/m2 Sarah Sargent Other [facility] Other 06-14-2023 09:30-0500 Body temperature 98.8 [degF] Sarah Mensahler Other [facility] Other 06-14-2023 09:30-0500 Body weight 81.01 kg Sarah Sargent Other [facility] Other 06-14-2023 09:30-0500 Diastolic blood pressure 67 mm[Hg] Sarah Mensahler Other [facility] Other 06-14-2023 09:30-0500 Respiratory rate 16 /min Sarah Sargent Other [facility] Other 06-14-2023 09:30-0500 SaO2% (BldA) [Mass fraction] 96 % Sarah Sargent Other [facility] Other 06-14-2023 09:30-0500 Systolic blood pressure 129 mm[Hg] Sarah Sargent Other [facility] Other 09-10-2022 15:17-0400 Blood Pressure Location Lui GAMINO [facility] [place] 09-10-2022 15:17-0400 Diastolic blood pressure 64 mm[Hg] Lui BERNSTEINL [facility] [place] 09-10-2022 15:17-0400 Heart rate 72 /min Lui GAMINO [facility] [place] 09-10-2022 15:17-0400 Respiratory rate 16 /min Lui BERNSTEINL [facility] [place] 09-10-2022 15:17-0400 Systolic blood pressure 138 mm[Hg] Lui GAMINO [facility] [place] 11-12-2021 17:50-0400 Body height 162.56 cm Olivia Dean Other [facility] Other 11-12-2021 17:50-0400 Body mass index (BMI) [Ratio] 27.46 kg/m2 Olivia Dean Other [facility] Other 11-12-2021 17:50-0400 Body temperature 97.8 [degF] Olivia Dean Other [facility] Other 11-12-2021 17:50-0400 Body weight 72.58 kg Olivia Dean Other [facility] Other 11-12-2021 17:50-0400 Diastolic blood pressure 59 mm[Hg] Olivia Dean Other [facility] Other 11-12-2021 17:50-0400 Respiratory rate 16 /min Olivia Dean Other [facility] Other 11-12-2021 17:50-0400 SaO2% (BldA) [Mass fraction] 98 % Olivia Dean Other [facility] Other 11-12-2021 17:50-0400 Systolic blood pressure 130 mm[Hg] Olivia Mclaughlinmond Other [facility] Other Encounters Encounter Date Encounter Type Care Provider Facility Start: 06-14-2023 End: 06-14-2023 ambulatory Sarah Sargent Other [facility] Other Start: 06-14-2023 Office outpatient vi sit 25 minutes Sarah Sargent [facility] Start: 10-01-2022 End: 10-02-[address] LUI GAMINO . Facility:[facility] Start: 09-10-2022 End: 09-11-2022 ambulatory Lui GAMINO Facility: [facility] Start: 09-10-2022 End: 09-10-2022 Patient encounter procedure Lui GAMINO [facility] [place] Start: 08-06-2022 ambulatory Lui GAMINO Facility:[facility] [place] Start: 06-23-[address] LUI GAMINO . Facil ity:[facility] Start: 05-15-2022 End: 05-16-2022 ambulatory TIMMY Moreno [facility] Start: 04-28-2022 End: 04-29-[address] ARETHA BREWSTER . Facility:[facility] Start: 04-23-2022 End: 04-24-[address] ARETHA BREWSTER . Facility:[facility] Start: 04-10-2022 End: 04-11-[address] ARETHA BREWSTER . Facility:[facility] Start: 03-24-2022 End: 03-24-2022 ambulatory JESSICA MUKHERJEE . Facility:[facility] Start: 01-14-2022 Encounter for genera l adult medical examination without abnormal findings DR ARETHA BREWSTER . The [facility] Start: 01-08-2022 End: 01-09-[address] ARETHA BREWSTER . Facility:[facility] Start: 01-08-2022 End: 01-09-2022 Encounter for general adult medical examination without abnormal findings DR ARETHA BREWSTER . Facility:[facility] Start: 11-12-2021 End: 11-12-2021 ambulatory Olivia Dean Other [facility] Other Start: 11-12-2021 Office outpatient vi sit 15 minutes Olivia Dean [facility] Procedures Date Procedure Procedure Detail Performing Clinician Arthroscopy of knee Lui GAMINO Colonoscopy Lui GAMINO Colonoscopy Lui GAMINO Dilatation of esophageal stricture Lui GAMINO Esophagogastroduodenoscopy Neeta GAMINO Esophagogastroduodenoscopy Neeta BERNSTEINL Ligation of fallopian tube Neeta BERNSTEINL Reduction mammoplasty Mei GAMINO Repair of hip Lui GAMINO Immunizations Immunization Date Immunization Notes Care Provider Fa cili 04-15-2022 influenza virus vaccine, unspecified formulation Lui GAMINO [facility] [place] 04-14-2022 SARS-CoV-2 (COVID-19 ) [id number] Lui GAMINO [facility] 02-10-2022 SARS-CoV-2 mRNA (ayzfhlqxqta-eqcr-vzvgp se) vaccine Lui GAMINO [facility] 08-26-2021 SARS-CoV-2 mRNA (agdddsveedc-fher-ehhyu se) vaccine Lui GAMINO [facility] 02-25-2021 SARS-CoV-2 (COVID-19 ) mRNA BNT-162b2 vax Lui GAMINO [facility] 02-04-2021 SARS-CoV-2 (COVID-19 ) mRNA BNT-162b2 vax Lui GAMINO [facility] Payers Date Payer Category Payer Medicare [id number] 1955 Unknown [id number] 2.16.84 [id number] 1955 Unknown [id number] 2.16.84 [id number] 1955 Unknown [id number] 2.16.84 [id number] 1955 Unknown [id number] 2.16.84 [id number] 1955 Unknown [id number] 2.16.84 [id number] 1955 Unknown [id number] 2.16.84 [id number] 1955 Unknown [id number] 2.16.84 [id number] 1955 Unknown [id number] 2.16.8 [id number] 1955 Unknown [id number] 2.16.8 [id number] Private Health Insurance [id number] Social History Date Type Detail Facility Sex Assigned At [facility] Start: 09-10-2022 Tobacco smoking status Ex-smoker (fi nding) [facility] [place] Tobacco smoking status Never [facility] [place] Functional Status Date Assessment Result Facility 09-10-2022 Functional Status N/A [facility] Clinical Notes 11-12-2021 to 06-14-2023 Note Date & Type Note Facility 06-14-2023 Evaluation note Encounter Date Diagnosis Assessment Notes May, Nasal congestion (ICD-10 - R09.81) May, RSV infection (ICD-10 - B33.8) Advised patient that RSV PCR test was positive. COVID/influenza A/B PCR test negative. Discussed diagnosis with patients mother in detail. Advised that this is a viral illness and antibiotics are not indicated. Finish previous rx of steroids. Use rx of [place] as directed. Discussed importance of adequate hydration and signs of respiratory distress in great detail. Supportive care as directed. Nasal suctioning, cool mist humidification. May use Tylenol as directed. Immediate eval for signs of respiratory distress, difficulty breathing poor PO intake, signs of dehydration, fever > 103, or if other concerning symptoms arise. Otherwise, follow up with PCP in 2-3 days. Patient verbalizes understanding and is agreeable to treatment plan. Patient sent home in stable condition. [facility] Other [phone] NoteOPERATIVE NOTE OPERATION DATE: 10/01/2022 ADDENDUM: Please add to the operative report - Follow up screening colonoscopy should be in 10 years.[id number] NoteOPERATIVE NOTE OPERATION DATE: 10/01/2022 PREOPERATIVE DIAGNOSIS: Colorectal screening. POSTOPERATIVE DIAGNOSIS: Normal colonoscopy to cecum. PROCEDURE: Colonoscopy to cecum. SURGEON: Lui Gamino M.D. ANESTHESIA: Monitored anesthesia care. ESTIMATED BLOOD LOSS: Zero. INDICATIONS AND CONSENT: Patient is a 66-year-old female presents for colorectal screening. Indications, risks, benefits, alternatives of proceeding with colonoscopy were explained extensively to the patient, including the risks of bleeding, colon perforation or anesthetic complications. All of her questions were answered. Informed consent was obtained. PROCEDURE: Patient brought to the operating room, placed in the left lateral decubitus position. Monitored anesthesia care was provided. Rectal exam was performed which showed no masses or blood. The scope was inserted into the anal canal. Under direct visualization was advanced. With the aid of abdominal compression, it was advanced to the cecum where cecal markings were clearly identified. There was noted to be a good prep. Upon withdrawal of the scope, mucosal surfaces were carefully examined. There were no mass lesions or polyps. No inflammatory changes or ulcerations. There were rare sigmoid diverticula without inflammatory changes or scarring. The scope was retroflexed in the anal canal. There was no significant hemorrhoidal disease. Scope was then withdrawn. Patient tolerated procedure well, was sent to recovery room in good condition. CC: Aretha Brewster M.D.The [facility] [id number] NoteChief Complaint consultation for screening colonoscopy HPI Staff 66 year old female presents on consultation from Dr. Brewster for screening colonoscopy. Denies abdominal or rectal pain. No rectal bleeding or change in bowel habits. Denies nausea or vomiting. No unexplained weight loss. Last colonoscopy completed greater than 10 years ago; patient reports she had a polyp with recommended repeat in 10 years. No known family history of colon cancer. History of Present Illness 66 yo female with h/o GERD, osteoarthritis, referred for colorectal screening, denies change in bmsor blood in stools, no abd complaints; last colonoscopy > 10 years ago, she was told that a hyperplastic polyp was removed; no abd operations; on baby asa and Celebrex daily, takes antibiotic prophylaxis prior to procedures due to hip replacement 2 years ago; no fmhx of GI malignancy or IBD. no tobacco use. Review of Systems PHQ Score Initial Depression Screen Score: 0 ROS - Provider Constitutional: no fever, no sweats, no weight loss. Eyes: no glasses, no blurred vision, no visual loss. ENMT: no dentures, no hoarseness, no swallowing difficulties, no hearing loss, no ear infection(s),no nose bleeds. Cardiovascular: normal blood pressure, no chest pain, regular heartbeat, no heart murmur. Respiratory: no shortness of breath, no cough, no asthma, no wheezing. Gastrointestinal: no nausea, no vomiting, no diarrhea, no constipation, no blood in stool, no change in bowel habits, no abdominal pain, no hepatitis. Genitourinary: no kidney stones, no urine infection, no dysuria. Musculoskeletal: no pain, no weakness. Skin: no changing moles, no rash, no skin lumps. Neurologic: no seizures, no epilepsy, no headache. Psychiatric: no emotional or psychiatric problem. Heme/Lymph: no bleeding problems, no anemia, no blood clots, no transfusions. Allergy/Immunologic: no swollen lymph nodes/glands, no IV drug abuse. Other: Additional ROS info: Except as noted in the above Review of Systems and in the History of Present Illness, all other systems have been reviewed and are negative or noncontributory. Physical Exam Vitals & Measurements HR: 72(Peripheral) RR: 16 BP: 138/64 HT: 63 in HT: 161.0 cm WT: 79 kg WT: 173.8 lb BMI: 30.48 HEENT: normal conjunctiva, sclera clear, no scleral icterus, EOM intact, PERRLA, oral mucosa moist without lesions. Neck: trachea midline, no mass, symmetric, no thyromegaly or nodules, no adenopathy Respiratory: lungs CTA, respirations non labored. Cardiovascular: regular rate and rhythm, no murmur, no pedal edema or varicosities. Gastrointestinal: soft, non distended, no tenderness, no masses, no palpable hernias, diastasis recti no, no hepatosplenomegaly; normal bs Lymphatic: no cervical adenopathy, no supraclavicular adenopathy Musculoskeletal: normal gait, digits and nails without infection, nodes, cyanosis, clubbing. Skin: no rashes, no lesions, no ulcers, no subcutaneous nodules, induration. Psychiatric/Neuro: oriented to time, place, person, judgement normal, affect appropriate for age, insight intact, no focal deficits. Tests: , review of old records completed, Discussed surgical options, risks, and possible complications with patient. Assessment/Plan 1. Screening for malignant neoplasm of colon (Z12.11: Encounter for screening for malignant neoplasm of colon) plan colonoscopy under anesthesia, informed consent obtained; Levaquin 750 mg IV prior to procedure. Follow-up No qualifying data available Problem List/Past Medical History Ongoing BMI 30.0-30.9,adult Bradycardia GERD (gastroesophageal reflux disease) Osteoarthritis Screening for malignant neoplasm of colon Seasonal allergic rhinitis Historical No qualifying data Procedure/Surgical History Arthroplasty of the hip, Arthroscopy of knee, Arthroscopy of knee, Breast reduction, Colonoscopy, Colonoscopy, Dilatation of esophageal stricture, EGD - Esophagogastroduodenoscopy, EGD - Esophagogastroduodenoscopy, Tubal ligation. Medications aspirin 81 mg Oral EC Tab, 81 mg= 1 tab(s), Oral, Daily calcium (as carbonate) 600 mg oral tablet, 1200 mg= 2 tab(s), Oral, Daily Celebrex 400 mg oral capsule, 400 mg= 1 cap(s), Oral, Daily Multi Vitamins oral tablet, 1 tab(s), Oral, Daily nitroglycerin 0.4 mg sublingual Tab, 0.4 mg= 1 tab(s), SubLingual, q5min, PRN Protonix 40 mg Tab-DR, 40 mg= 1 tab(s), Oral, Daily Vitamin D3 2000 intl units oral Tab, 50 mcg, Oral, Daily Allergies Latex (Dermatitis) erythromycin (GI upset) penicillins (Anaphylaxis) Social History Alcohol - Denies Alcohol Use, 09/10/2022 Substance Abuse - Denies Substance Abuse, 09/10/2022 Tobacco Former smoker, quit more than 30 days ago Tobacco Use:. Never Smokeless Tobacco Use:. Cigarettes, 1per day. Started age 16.0 Years. Stopped age 50 Years., 09/10/2022 Family History Diabetes mellitus type 2: Mother and Sister. Heart disease: Mother and Sister. Immunizations Vaccin (more content not included)...[facility] CenterComment on above:Result Comment: Electronically Signed By: Lui GAMINO MD\Date and Time Signed: 09/10/22 16:09 [id number] NoteOrthopaedic Surgery Outpatient Visit Note Encounter Date: 05/15/2022 Patient: Brie Eagle 1955 PCP No primary care provider on file. CC: No chief complaint on file. HPI: Brie Eagle is a 66 y.o. female here for a follow up appointment on the left hip replacement that was performed on 10/11/[address] James. Patient reports that she is doing excellent and that she has little to no pain in the left hip. She is riding bike and exercising with no limitations currently. She does report some injections have been performed for her knees previously but they are doing ok today. She is afebrile. Past Medical History: No past medical history on file. No past surgical history on file. Medications: No current outpatient medications on file. Allergies and adverse reactions: Not on File Social History: Social History Socioeconomic History Marital status: Spouse name: Not on file Number of children: Not on file Years of education: Not on file Highest education level: Not on file Occupational History Not on file Tobacco Use Smoking status: Not on file Smokeless tobacco: Not on file Substance and Sexual Activity Alcohol use: Not on file Drug use: Not on file Sexual activity: Not on file Other Topics Concern Not on file Social History Narrative Not on file Social Determinants of Health Financial Resource Strain: Not on file Food Insecurity: Not on file Transportation Needs: Not on file Physical Activity: Not on file Stress: Not on file Social Connections: Not on file Intimate Partner Violence: Not on file Housing Stability: Not on file Family History: No family history on file. ROS: Constitutional No fevers, no chills Musculoskeletal No joint pain Objective: General Appearance : Normal appearance Orientation: Normal mood, normal affect Mood and Affect: Gait: Normal Right Left Hip exam Internal rotation: 25 External rotation: 25 No pain with internal and external rotation Internal rotation: 25 External rotation: 30 No pain with internal and external rotation SI CDI Knee exam Extension: 0 Flexion: 120 Alignment: Normal Effusion: 0 Extension: 0 Flexion: 125 Alignment: Normal Effusion: 0 Crepitus present Cardiovascular Dorsalis pedis pulse 2+ Dorsalis pedis pulse 2+ Sensation Superficial peroneal and tibial nerve distribution normal to light touch Superficial peroneal and tibial nerve distribution normal to light touch Strength Hip flexion, knee extension, and tibialis anterior 5/5 Hip flexion, knee extension, and tibialis anterior 5/5 Labs: Lab Results Component Value Date HGB 12.9 10/08/2020 HGB 13.6 08/21/2020 No results found for: CREATININE No results found for: CRP No results found for: SEDRATE No results found for: CULTURE Imaging: Findings: Xray of the left hip shows satisfactory placement left hip no evidence of loosening. Assessment: 1. History of total hip arthroplasty, left Plan: Patient doing well s/p L SAHRA - continue to exercise and work on strengthening of the hip - follow up in 1 year for surveillance x ray, sooner if any problems. -Let us know if any acute issues, fevers, chills or incisional issues. Follow Up: No follow-ups on file.[facility]05-31-2022 Evaluation note* Encounter Date Diagnosis Assessment Notes Treatment Notes Treatment Clinical Notes October, Insect bite (nonvenomous), left lower leg, initial encounter (ICD-10 - S80.862A) Take the antibiotic as prescribed until gone. Use the steroid cream as prescribed to the area. Make an appointment with your family physician for recheck later this week or next week. Go to the ER for worsening symptoms or concerns. October, Bitten or stung by nonvenomous insect and other nonvenomous arthropods, initial encounter (ICD-10 - W57.XXXA) Ask Ziggy Other Evaluation + Plan note No data available for this section General Surgery Ivan History general Narrative - Reported* Type Description Date Medical History arthritis Surgical History pyloniadal cyst Surgical History both knee Surgical History breast reduction Surgical History tubal ligation Surgical History Total hip replacement Hospitalization History see above surg hx [facility] Other History general Narrative - Reported* Type Description Date Medical History arthritis Medical History GERD Surgical History pyloniadal cyst Surgical History both knee Surgical History breast reduction Surgical History tubal ligation Surgical History Total hip replacement Hospitalization History see above surg hx [facility] Other Hospital Discharge instructions No data available for this section General Surgery [place] [facility] note No data available for this section General Surgery Ivan Summary Purpose Family History No Family History Records FoundNo Family History Records FoundNo Family History Records FoundNo Family History Records Found Advance Directives No Advanced Directives Records FoundNo Advanced Directives Records FoundNo Advanced Directives Records FoundNo Advanced Directives Records Found Additional Source Comments INFORMATION SOURCE (unrecogn ized section and content) DATE CREATED AUTHOR 10/25/2021 [facility] DATE CREATED AUTHOR AUTHOR'S ORGANIZ ATION 05/17/2022 [facility] DATE CREATED AUTHOR AUTHOR'S ORGANIZ ATION 10/10/2022 [facility] DATE CREATED AUTHOR AUTHOR'S ORGANIZ ATION 10/10/2022 [facility] REASON FOR VISIT (unrecogniz ed section and content) LEFT LEG SPIDER BITE, GOT BI T YESTERDAY AND IS GETTING WORSEHEAD COLD , HEADACHE, COUGH Patient Care team informatio n (unrecognized section and content) Personnel Name: Aretha Brewster MD Address: Address: [address] [place] [address] FOR RECORDS PERTAINING TO PATIENTS WHO ARE OR HAVE BEEN ENROLLED IN A CHEMICAL DEPENDENCY/SUBSTANCEABUSE PROGRAM, SOME INFORMATION MAY BE OMITTED. This clinical summary was aggregated from multiple sources. Caution should be exercised in using it in the provision of clinical care. This summary normalizes information from multiple sources, and as a consequence, information in this document may materially change the coding, format and clinical context of patient data. In addition, data may be omitted in some cases. CLINICAL DECISIONS SHOULD BE BASED ON THE PRIMARY CLINICAL RECORDS. [facility]. provides no warranty or guarantee of the accuracy or completeness of information in this document.
--- NOTE | 2023-08-15 07:29 | PC.NURSE ---
Pt c/o worsening tongue swelling since waking up this am. no resp distress at this time or hives. states she's been dealing with this on and off since March. Has been working with DR CRUZ for this -- has been treated for salivary stones a few times. Pt also has some neck lymph node swelling, Left worse than Right.
--- NOTE | 2023-08-15 07:43 | CT_ITS ---
The [address] [address] Patient Name: MERCEDES EAGLE MRN: [id number] date: 1955 Sex: F Assigned Patient Location: ER Current Patient Location: Accession/Order Number: [id number] Exam Date: 08/15/2023 08:25 Report Date: 08/15/2023 09:01 At the request of: GENESIS MURRY Procedure: CT soft tissue neck w con EXAM: CT soft tissue neck w con HISTORY: tongue swelling; left tongue deviation, intermittent left neck swelling x4 months, dental work on right side of mouth one week ago, tongue swelling today COMPARISON: None. TECHNIQUE: Axial postcontrast CT imaging of the neck was performed with coronal and sagittal reformats. This CT exam was performed using one or more of the following dose reduction techniques: Automated exposure control, adjustment of the MA and/or kV according to patient size, or use of iterative reconstruction technique. FINDINGS: Skull base/intracranial: The visualized portions of the intracranial structures are unremarkable. Moderate mucosal thickening of the inferior left maxillary sinus. Minimal mucosal thickening of the inferior right maxillary sinus. Mastoid and middle ears are well aerated. Visualized portions of the orbits are unremarkable. Neck soft tissues: There is nonspecific mild asymmetric heterogeneous appearance with slight increased size of the left submandibular gland without overt mass or surrounding inflammation definitely seen. No overt abnormality involving the tongue is definitely seen by CT. Evaluation of the oral cavity and facial soft tissues is degraded by streak artifact from dental amalgam. The oropharynx, hypopharynx and glottis demonstrate no significant abnormality. The right submandibular gland and parotid glands demonstrate normal CT appearance. The thyroid demonstrates normal CT appearance. Lymph nodes: Asymmetric prominent left jugulodigastric and submandibular lymph nodes are seen within the left jugulodigastric node measuring in short axis diameter. Vasculature: Unremarkable. Musculoskeletal: Prominent degenerative changes cervical spine for patient's age with multilevel moderate to advanced uncovertebral and right greater than left facet arthropathy. There is prominent degenerative change of the left C1-C2 articulation. At least moderate canal stenosis is present at C4-C5. Multilevel moderate foraminal stenosis greater on the right. No destructive osseous lesions are identified. Upper thorax: The visualized portions of the lungs are clear. CT/CT soft tissue neck w con IMPRESSION: 1. No overt abnormality is seen involving the oral tongue by CT. Specifically no evidence for mass or over inflammation. 2. There is slight asymmetric prominence with heterogeneity of the left submandibular gland without surrounding inflammation seen. This may relate to mild sialoadenitis without visible sialolith. 3. Associated mild asymmetrically prominent left submandibular jugulodigastric chain lymph nodes are noted, possibly reactive in nature. Continued attention on clinical follow-up for resolution is recommended. 4. No substantial dental disease visible by CT. 5. Mild paranasal sinus disease involving maxillary sinuses detailed above. Electronically authenticated by: SANDRITA SHINE Date: 08/15/2023 09:01
--- NOTE | 2023-08-15 07:44 | ED_ITS ---
HPI - General Adult General Chief complaint: Dental/Oral Stated complaint: SWOLLEN TONGUE Time Seen by Provider: 08/15/23 07:41 Source: patient and family Mode of arrival: walk-in Limitations: no limitations History of Present Illness HPI narrative: Patient is a 67-year-old female who is presenting to the ER today with chief complaint of tongue swelling and tongue deviation to the left. Patient has been having intermittent symptoms of her mouth, swelling, intermittent lymph nodes, and also intermittent treatment for saliva stones. Patient has seen her PCP several times since approximate April 06. Patient says that she has had ongoing swelling to her upper anterior neck/below the mandible. Patient said that she woke up this morning, noticing that her tongue was swollen, talking like she had a lisp. Patient also has noted that her tongue was deviating to the left. Patient has no swelling to her lips. Patient only takes Protonix and dtva-gwr-dxaeile medication. She takes no DAVID inhibitor. at bedside. Patient stated she drank coffee this morning with no difficulty, but patient was concerned that she may have trouble eating and does not feel safe for that so she did not eat anything this morning secondary mild swelling to the tongue. She has no headache, no posterior neck pain. No slurred speech, no facial droop, no difficulty using her arms, legs, no other acute complaints. All systems are negative except as noted/marked. All systems reviewed and otherwise negative. Nurses note and vital signs reviewed and patient is not hypoxic. General: The patient appears well and in no apparent distress. Patient is resting comfortably on cart. Patient is not toxic, lethargic, or listless Skin: Warm, dry, no pallor noted. There is no rash noted. No petechiae, purpura. Head: Normocephalic, atraumatic Eye: Normal conjunctiva, no drainage, EOMI. PERRL Ears, Nose, Mouth, and Throat: oral mucosa is moist. Patient has mild swelling to her tongue, she does have mild left tongue deviation as well. No swelling to uvula. + gag reflex Nares patent. Mouth without vesicles. Cardiovascular: Regular Rate and Rhythm, no murmur, gallop, rub Respiratory: Patient is in no distress, no accessory muscle use, lungs are clear to auscultation, no wheezing, rales or rhonchi Back: non-tender, no CVA tenderness bilaterally to percussion. No CT LS midline pain GI: Soft, no tenderness to palpation, no masses appreciated. Musculoskeletal: Patient has full range of motion of all of the extremities, no motor, sensory, or focal neurological deficits Neurological: A&O x4, normal speech Psychiatric: Cooperative Related Data Allergies Allergy/AdvReac Type Severity Reaction Status Date / Time Penicillins Allergy Verified 08/15/23 07:24 erythromycin base AdvReac Intermediate Nausea Verified 08/15/23 07:24 Latex, Natural Rubber AdvReac Mild Rash Verified 08/15/23 07:24 PFSH PFSH Social History Smoking status: Former smoker Exam Constitutional Vital Signs, click to edit/add: Last Vital Signs Temp 98.5 F 08/15/23 07:20 Pulse 80 08/15/23 07:20 Resp 18 08/15/23 07:20 BP 158/92 H 08/15/23 07:20 Pulse Ox 97 08/15/23 07:20 O2 Del Method Room Air 08/15/23 07:20 Course Vital Signs Vital signs: Vital Signs Temperature 98.5 F 08/15/23 07:20 Pulse Rate 80 08/15/23 07:20 Respiratory Rate 18 08/15/23 07:20 Blood Pressure 158/92 H 08/15/23 07:20 Pulse Oximetry 97 08/15/23 07:20 Oxygen Delivery Method Room Air 08/15/23 07:20 Temperature 98.5 F 08/15/23 07:20 Pulse Rate 80 08/15/23 07:20 Respiratory Rate 18 08/15/23 07:20 Blood Pressure 158/92 H 08/15/23 07:20 Pulse Oximetry 97 08/15/23 07:20 Oxygen Delivery Method Room Air 08/15/23 07:20 Medical Decision Making [facility] Narrative Medical decision making narrative: Patient's lab work shows no significant findings. Patient did have monocytes noted and CBC with differential, patient's mononuclear screen was negative. CT showed submandibular sialoadenitis mild, mild lymphadenopathy. Patient's tongue swelling improved after IV fluids, Pepcid, Benadryl, and Solu-Medrol. Patient was swallowing well, drinking water no difficulty. Patient be placed on steroids for 3 additional days starting tomorrow. I forgot to give a patient a prescription at discharge, at 11:30 AM I called the prescription [facility]. Prednisone 50mg, #3, 1 tab daily. Patient will also take [id number] Pepcid twice a day also Claritin or Zyrtec in the morning and Benadryl at nighttime. Patient will follow-up with Dr. Brewster and be referred to specialist as needed. No questions at discharge. Patient felt much better, also received 1 L of IV fluid Lab Data Labs: Lab Results 08/15/23 Range/Units 07:45 WBC 6.9 (4.0-11.0) 10^3/uL RBC 4.94 (4.20-5.40) 10^6/uL Hgb 14.1 (12.0-16.0) g/dL Hct 44.1 (36.0-48.0) % MCV 89.3 (81.0-99.0) fL MCH 28.5 (26.7-34.0) pg MCHC 32.0 (29.9-35.2) g/dL RDW 13.5 (11.0-15.0) % Plt Count 288 (150-450) 10^3/uL MPV 9.7 (9.5-13.5) fL Neut % (Auto) 51.8 (43.0-75.0) % Lymph % (Auto) 31.7 (20.5-60.0) % [place] % (Auto) 14.2 H (1.7-12.0) % Eos % (Auto) 1.6 (0.9-7.0) % Baso % (Auto) 0.6 (0.2-2.0) % Neut # (Auto) 3.6 (1.4-6.5) 10^3/uL Lymph # (Auto) 2.2 (1.2-3.8) 10^3/uL [place] # (Auto) 1.0 H (0.3-0.8) 10^3/uL Eos # (Auto) 0.1 (0.0-0.7) 10^3/uL Baso # (Auto) 0.0 (0.0-0.1) 10^3/uL Abs Immat Gran (auto) 0.01 (0.00-0.03) 10^3/uL Imm/Tot Granulo (auto) 0.1 (0.0-0.5) % Sodium 139 (136-145) mmol/L Potassium 4.1 (3.5-5.1) mmol/L Chloride 102 (98-107) mmol/L Carbon Dioxide 28.4 (21.0-32.0) mmol/L Anion Gap 12.7 BUN 17.0 (7.0-18.0) mg/dL Creatinine 0.93 (0.55-1.02) mg/dL Est GFR ( Amer) >60 (>=60) Est GFR (Non-Af Amer) >60 (>=60) BUN/Creatinine Ratio 18.3 Glucose 100 (74-106) mg/dL Calcium 9.1 (8.5-10.1) mg/dL Total Bilirubin 0.3 (0.2-1.0) mg/dL AST 23 (15-37) U/L ALT 32 (14-59) U/L Alkaline Phosphatase 77 (46-116) U/L Total Protein 8.0 (6.4-8.2) g/dL Albumin 3.6 (3.4-5.0) g/dL Globulin 4.4 g/dL Albumin/Globulin Ratio 0.8 Monoscreen Negative (NEGATIVE) Discharge Plan Discharge Chief Complaint: Dental/Oral Clinical Impression: Lymphadenopathy, Tongue swelling Patient Disposition: Home, Self-Care Condition: Fair Mode of Transportation: Private Vehicle Instructions: Lymphadenopathy (ED), Sialoadenitis (ED) Additional Instructions: Popsicles, ice cream, cold drinks to help with swelling Education on sialoadenitis was given to you as well, you have no obvious saliva stone at this time. Education on lymph nodes was given to you as well, Follow-up with Dr. Brewster and he may refer you to ENT or facial specialist for additional testing if needed. A copy of your CT report was given to you Referrals: Myron Brewster MD [Primary Care Provider] - 1 week Discharge Date/Time: 08/15/23 10:03 Stand Alone Forms: Portal Instructions
[2023-08-15 07:55] LABS: Basophils Percent Auto 0.6 % (0.2-2.0); Eosinophils Absolute Auto 0.1 10^3/uL (0.0-0.7); Eosinophils Percent Auto 1.6 % (0.9-7.0); Hematocrit 44.1 % (36.0-48.0); Hemoglobin 14.1 g/dL (12.0-16.0); Immature Granulocytes Abs Auto 0.01 10^3/uL (0.00-0.03); Immature Granulocytes Pct Auto 0.1 % (0.0-0.5); Lymphocytes Absolute Auto 2.2 10^3/uL (1.2-3.8); Lymphocytes Percent Auto 31.7 % (20.5-60.0); Mean Corpuscular Hemoglobin 28.5 pg (26.7-34.0); Mean Corpuscular Volume 89.3 fL (81.0-99.0); Mean Platelet Volume 9.7 fL (9.5-13.5); Monocytes Percent Auto 14.2 % (1.7-12.0); Neutrophils Absolute Auto 3.6 10^3/uL (1.4-6.5); Neutrophils Percent Auto 51.8 % (43.0-75.0); Platelet Count 288 10^3/uL (150-450); Red Blood Count 4.94 10^6/uL (4.20-5.40); Red Cell Distribution Width 13.5 % (11.0-15.0); White Blood Count 6.9 10^3/uL (4.0-11.0)
[2023-08-15 08:08] LABS: Alanine Aminotransferase 32 U/L (14-59); Albumin Globulin Ratio 0.8; Albumin Level 3.6 g/dL (3.4-5.0); Alkaline Phosphatase 77 U/L (46-116); Anion Gap 12.7; Aspartate Amino Transferase 23 U/L (15-37); BUN Creatinine Ratio 18.3; Bilirubin Total 0.3 mg/dL (0.2-1.0); Calcium 9.1 mg/dL (8.5-10.1); Carbon Dioxide 28.4 mmol/L (21.0-32.0); Chloride 102 mmol/L (98-107); Estimated GFR (African America >60 (>=60); Estimated GFR (Non-African Ame >60 (>=60); Globulin 4.4 g/dL; Glucose 100 mg/dL (74-106); Potassium 4.1 mmol/L (3.5-5.1); Sodium 139 mmol/L (136-145)
[2023-08-15] MEDS: 0.9 % SODIUM CHLORIDE 1,000 ML 999 ML IV (08:10)
[2023-08-15] MEDS: METHYLPREDNISOLONE SOD SUCC PF 125 MG/2 ML VIAL IVP (08:10)
[2023-08-15] MEDS: DIPHENHYDRAMINE HCL 50 MG/ML (1ML) VIAL IV (08:11)
[2023-08-15] MEDS: FAMOTIDINE/PF 20 MG/2 ML VIAL IV (08:11)
[2023-08-15 08:46] LABS: Mono Screen NEGATIVE (NEGATIVE)
== END 2023-08-15 10:03 | disposition home or self-care (01) ==
PROVIDERS: Emergency Provider Emergency Medicine; PCP Family Medicine
DX: R59.0 Localized enlarged lymph nodes (principal); R60.9 Edema, unspecified; K11.20 Sialoadenitis, unspecified; Z87.891 Personal history of nicotine dependence
CPT/HCPCS: 36415; 70491; 80053; 85025; 86308; 96374; 96375; 99285; J2930; Q9967

== ENCOUNTER 2024-01-06 06:40 | Outpatient (OUT) | payer MEDICARE, SELFPAY ==
--- OUTSIDE RECORDS SUMMARY | 2024-01-06 06:45 | XMS_ITS | CCD ---
Author Organization [facility] CliniSyms Care Team Providers Care Manager Control Name Role Phone Olivia Dean Unavailable TIMMY TINSLEY Referring Unavailable TIMMY TINSLEY Attending Unavailable Aretha Brewster Primary Care Physician [phone] JESSICA PACHECO Attending Unavailable YAZ ., JESSICA Admitting Unavailable ZIEBER, DR ULISES Pineda Consulting Unavailable HOY ., DR CARIAS Primary Care Unavailable HAIDER ., MAGNO Consulting Unavailable NILL ., DR POE Admitting Unavailable HOY ., DR CARIAS Primary Care Unavailable NILL ., DR POE Consulting Unavailable NILL ., DR POE Attending Unavailable SHARP, NAKIA Consulting Unavailable LILIAN II, AVELINO Consulting Unavailable [...] Unavailable ELVER, DR STEPHANIE Olivera Consulting Unavailable HOY ., DR CARIAS Primary Care Unavailable HOY ., DR CARIAS Admitting Unavailable HOY ., DR CARIAS Consulting Unavailable HOY ., DR CARIAS Attending Unavailable ELVER, DR STEPHANIE Olivera Consulting Unavailable DAYLLui Attending Unavailable NILLLui Attending Unavailable Sarah Sargent Unavailable EUGENIO GARCIA Attending Unavailable Allergies Allergy Classification Reported Allergen(s) Allergy Type Date of Onset Reaction(s) Facility (4 sources) Erythromycin; Translations: [erythromycin] Drug Allergy GI upset General Surgery [place] (5 sources) Latex; Translations: [LATEX] Propensity to adverse reactions 05-15-20 Inflammatory dermatosis (disorder) [facility] Repository (2 sources) Penicillin G Drug Allergy anaphylaxis [facility] Other (3 sources) Penicillins; Translations: [PENICILLINS] Propensity to adverse reactions to drug (disorder) 05-15-20 Anaphylaxis (disorder) [facility] Repository (2 sources) ERYTHROMYCIN BASE; Translations: [ERYTHROMYCIN BASE] Propensity to adverse reactions to drug (disorder) 05-15-20 [facility] Repository (1 source) natural latex rubber Drug allergy (disorder) 09-23-19 23 [facility] Repository (1 source) Penicillin Drug Allergy [facility] Repository Medications Current Medications Medication Drug Class(es) [...] 1.5 mg/ml oral solution (1 source) Uncompetitive B-dknglc-H-aspartat e 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, Sigma-1 Agonist Start: 06-14-2023 take 10 mL by mouth every eight hours [place] DM 7.5-7.5 MG/5ML 10 mL Orally every [...] Osteoarthritis 08-29-2022 Chronic Other aftercare (1 source) custodial (current) use of aspirin; Translations: [TISSUE TECHNICIAN CURRENT USE OF ASPIRIN] Onset: 10-02-2022 Episodic [...] 03-24-2022 Episodic Other aftercare (1 source) 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; Translations: [OTH TISSUE TECHNICIAN CURRENT DRUG THERAPY] Onset: 01-14-2022 Episodic Other bone disease and musculoskeletal deformities (1 source) Other specified disorders of bone density and structure, unspecified site; Translations: [OTH D/O BONE DEN STRUCT UNS SITE] Onset: [...] (COVID-19) RNA VIVEK+probe Ql (Unsp spec) Negative [place] [facility] Other COVID/FLU/RSV RT-PCR Negative [facility] Other COVID/FLU/RSV RT-PCR Positive [facility] Other Outside Colonoscopyon 2022 Outside Colonoscopy [id number] 0#1.00CD:127 [facility] Reminderson 10-02-2022 Reminders - From: Kisha Samuel LPN To: GSN - Clinical; Sent: 10/02/2022 08:43:18 EDT Show up: 08/31/2032 07:00:00 EDT Subject: colonoscopy recall Due Date/Time: 10/01/2032 07:00:00 EDT Reminder/Recall Patient is due for screening colonoscopy 10/01/2032. Normal [facility] Consent for Procedure/Surger yon 09-11-2022 Consent for Procedure/Surgery [id number] #1.00CD:127 [facility] Facesheeton 09-11-2022 Facesheet [id number] #1.00CD:127 [facility] Pre-Certification Formon Pre-Certification Form [id number] 1#1.00CD:127 [facility] Ambulatory Visit Summaryon 0 09-10-2022 Ambulatory Visit [...] reflux disease) Osteoarthritis Seasonal allergic rhinitis Normal [facility] Physician Referralon 023 Physician Referral [id number] #1.00CD:127 Normal [facility] Follow-Upon 05-15-2022 Follow-Up [id number] Brie Eagle 1955 F Date Provider Department Center 05/15/2022 Piedad-TIMMY TINSLEY MP ORTHO MPORTHO Family History Problem Relation Age of Onset Diabetes Mother Heart disease Mother Arthritis Mother No Known Problems Father Family Status - Relation Status Age at Mother Father Level of Service:[address] [place] OFFICE/OUTPATIENT ESTABLISHED LOW MDM 20-29 MIN Reason for Visit and Comments: Follow-up [044752] - Yearly follow up Normal [facility] XR DEXA BONE DENSITYon 04-28 XR [...] by: STEPHANIE RAYA Date: 2022-04-28 17:04 Normal [facility] MG MAMM SCREEN 3D ARCELIA CADon 04-23-2022 MG MAMM SCREEN 3D ARCELIA CAD Patient: BRIE EAGLE Exam Date: 04/23/2022 : 1955 Gender:F Ordering : DR ARETHA BREWSTER . Admission #: [id number] Family : Order #: [id number] CLICK HERE TO VIEW EXAM RADIOLOGY REPORT PROCEDURE: MAMMOGRAM SCREENING 3D BILATERAL CAD COMPARISON: MG MAMM SCREEN 3D ARCELIA CAD, 04/17/2021. INDICATIONS: Screening mammography Calculator Name NCI Breast Cancer Risk Assessment Tool 5 Year Breast Cancer Risk Not Reported. Lifetime Breast Cancer Risk Not Reported. Personal Breast Cancer No Personal Ovarian Cancer No Treatments None Family Cancers None LOCATION: [facility] BREAST COMPOSITION: Scattered areas fibroglandular density. FINDINGS: [...] MD on 04/23/2022 at 13:10 Normal [facility] NM STRESS/REST MULTIon 04-10 NM STRESS/REST MULTI Patient: BRIE EAGLE Exam Date: 04/10/2022 : 1955 Gender:F Ordering : DR ARETHA BREWSTER . Admission #: [id number] Family : Order #: [id number] CLICK HERE TO VIEW EXAM RADIOLOGY REPORT [...] M.D. on 04/10/2022 at 13:53 Normal [facility] AMYLASEon 03-24-2022 Amylase [Catalytic activity/Vol] 51 U/L Normal 25-115 [facility] Comment on above: Performed By: #### A MY, LIPA, CMADM, HSTROPN #### [facility] [address] [address] [address] Christos Richardson CARDIAC MONA ADMITon 022 CK [Catalytic activity/Vol] 67 U/L Normal 26-192 [facility] Comment on above: Performed By: #### A MY, LIPA, CMADM, HSTROPN #### [facility] [address] [address] [address] Christos Richardson CK.MB [Mass/Vol] 0.93 ng/mL Normal <=3.60 [facility] Comment on above: Performed By: #### A MY, LIPA, CMADM, HSTROPN #### [facility] [address] [address] [address] Christos Richardson GAYATHRI 32 ng/mL Normal 9-82 [facility] Comment on above: Performed By: #### A MY, LIPA, CMADM, HSTROPN #### [facility] [address] [address] [address] Christos Richardson CBC AUTO DIFFon 03-24-2022 BASO # 0.1 103/ul Normal 0.0-0.1 [facility] Comment on above: Performed By: #### C BC ####[facility] [address] [address]Dr. Christos Richardson Basophils/100 WBC (Bld) 0.7 % Normal 0.2-2.0 [facility] Comment on above: Performed By: #### C BC ####[facility] [address] [address]Dr. Christos Richardson EO # 0.1 103/ul Normal 0.0-0.7 [facility] Comment on above: Performed By: #### C BC ####[facility] [address] [address]Dr. Christos Richardson Eosinophils/100 WBC (Bld) 0.8 % Critically low 0.9-7.0 [facility] Comment on above: Performed By: #### C BC ####[facility] [address] [place], [place] [address]Dr. Christos Richardson Erythrocyte distribution width (RBC) [Ratio] 13.4 % Normal 11.0-15.0 [facility] Comment on above: Performed By: #### C BC ####[facility] [address] [place], [place] [address]Dr. Christos Richardson Hematocrit (Bld) [Volume fraction] 40.9 % Normal 36.0-48.0 [facility] Comment on above: Performed By: #### C BC ####[facility] [address] [place], [place] [address]Dr. Christos Richardson Hemoglobin (Bld) [Mass/Vol] 13.3 g/dL Normal 12.0-16.0 [facility] Comment on above: Performed By: #### C BC ####[facility] [address] [place], [place] [address]Dr. Christos Richardson IG # 0.02 10e3/ul Normal 0.00-0.03 [facility] Comment on above: Performed By: #### C BC ####[facility] [address] [place], [place] [address]Dr. Christos Richardson IG % 0.3 % Normal 0.0-0.5 [facility] Comment on above: Performed By: #### C BC ####[facility] [address] [place], [place] [address]Dr. Christos Richardson LYMPH # 2.3 103/ul Normal 1.2-3.8 [facility] Comment on above: Performed By: #### C BC ####[facility] [address] [address]Dr. Christos Richardson Lymphocytes/100 WBC (Bld) 32.6 % Normal 20.5-60.0 [facility] Comment on above: Performed By: #### C BC ####[facility] [address] [id number]. Devoramarissa Richardson MANUAL DIFF REQ NO Normal [facility] Comment on above: Performed By: #### C BC ####[facility] [address] [place], [place] [address]Dr. Christos Richardson MCH (RBC) [Entitic mass] 29.2 pg Normal 26.7-34.0 [facility] Comment on above: Performed By: #### C BC ####[facility] [address] [place], [place] [address]Dr. Christos Dylan MCHC (RBC) [Mass/Vol] 32.5 g/dL Normal 29.9-35.2 [facility] Comment on above: Performed By: #### C BC ####[facility] [address] [place], [place] [address]Dr. Christos Richardson MCV (RBC) [Entitic vol] 89.9 fL Normal 81.0-99.0 [facility] Comment on above: Performed By: #### C BC ####[facility] [address] [place], [place] [address]Dr. Christos Dylan MONO # 1.0 103/ul Critically high 0.3-0.8 [facility] Comment on above: Performed By: #### C BC ####[facility] [address] [place], [place] [address]Dr. Christos Dylan Monocytes/100 WBC (Bld) 14.2 % Critically high 1.7-12.0 [facility] Comment on above: Performed By: #### C BC ####[facility] [address] [place], [place] [address]Dr. Christos Richardson NEUT # 3.7 103/ul Normal 1.4-6.5 [facility] Comment on above: Performed By: #### C BC ####[facility] [address] [address]Dr. Christos Richardson Neutrophils/100 WBC (Bld) 51.4 % Normal 43.0-75.0 [facility] Comment on above: Performed By: #### C BC ####[facility] [address] [address]Dr. Christos Richardson Platelet mean volume (Bld) [Entitic vol] 9.7 fL Normal 9.5-13.5 [facility] Comment on above: Performed By: #### C BC ####[facility] [address] [address]Dr. Christos Richardson PLT 271 103/ul Normal 150-450 [facility] Comment on above: Performed By: #### C BC ####[facility] [address] [address]Dr. Christos Richardson RBC 4.55 106/ul Normal 4.20-5.40 [facility] Comment on above: Performed By: #### C BC ####[facility] [address] [address]Dr. Christos Richardson WBC 7.1 103/ul Normal 4.0-11.0 [facility] Comment on above: Performed By: #### C BC ####[facility] [address] [address]Dr. Christos Richardson LIPASEon 03-24-2022 Lipase [Catalytic activity/Vol] 104.0 U/L Normal 73.0-393.0 [facility] Comment on above: Performed By: #### A MY, LIPA, CMADM, HSTROPN #### [facility] [address] [place], [place] [address] Dr. Christos Richardson TROPONIN, HIGH SENSITIVITYon 03-24-2022 HSTROP 6.6 pg/mL Normal 4.0-51.3 [facility] Comment on above: Result Comment: CUT- OFF POINTS HAVE BEEN ESTABLISHED BASED ON THE FOURTH UNIVERSAL DEFINITIONS OF MYOCARDIAL INFARCTION. THE UPPER REFERENCE LIMIT (URL) OF TROPONIN, DEFINED THE 99TH PERCENTILE OF cTnI DISTRIBUTION IN A REFERENCE POPULATION, HAS BEEN CONFIRMED THE DECISION THRESHOLD FOR [place] DIAGNOSIS. Performed By: #### H STROPN ####[facility] [address] [place], [place] [address]FbDr. Christos Richardson HSTROP 6.3 pg/mL Normal 4.0-51.3 [facility] Comment on above: Result Comment: CUT- OFF POINTS HAVE BEEN ESTABLISHED BASED ON THE FOURTH UNIVERSAL DEFINITIONS OF MYOCARDIAL INFARCTION. THE UPPER REFERENCE LIMIT (URL) OF TROPONIN, DEFINED THE 99TH PERCENTILE OF cTnI DISTRIBUTION IN A REFERENCE POPULATION, HAS BEEN CONFIRMED THE DECISION THRESHOLD FOR [place] DIAGNOSIS. Performed By: #### A MY, LIPA, CMADM, HSTROPN #### [facility] [address] [address] [address] Christos Richardson XR CHEST 1 Von [...] ULISES CALDERON Date: 2022-03-24 13:53 Normal [facility] INSULINon 01-09-2022 Insulin 10.4 uIU/mL Normal 2.6-24.9 [facility] Comment on above: Performed By: #### I NSULIN #### [facility] [address] [address] [address] Christos Richardson CBC AUTO DIFFon 01-08-2022 BASO # 0.1 103/ul Normal 0.0-0.1 [facility] Comment on above: Performed By: #### C BC #### [facility] [address] [address] [address] Christos Richardson Basophils/100 WBC (Bld) 0.8 % Normal 0.2-2.0 [facility] Comment on above: Performed By: #### C BC #### [facility] [address] [place] [address] Dr. Christos Richardson EO # 0.1 103/ul Normal 0.0-0.7 [facility] Comment on above: Performed By: #### C BC #### [facility] [address] [place] [address] Dr. Christos Richardson Eosinophils/100 WBC (Bld) 1.5 % Normal 0.9-7.0 [facility] Comment on above: Performed By: #### C BC #### [facility] [address] [place] [address] Dr. Christos Richardson Erythrocyte distribution width (RBC) [Ratio] 13.6 % Normal 11.0-15.0 [facility] Comment on above: Performed By: #### C BC #### [facility] [address] [place] [address] Dr. Christos Richardson Hematocrit (Bld) [Volume fraction] 40.4 % Normal 36.0-48.0 [facility] Comment on above: Performed By: #### C BC #### [facility] [address] [place] [address] Dr. Christos Richardson Hemoglobin (Bld) [Mass/Vol] 12.9 g/dL Normal 12.0-16.0 [facility] Comment on above: Performed By: #### C BC #### [facility] [address] [place] [address] Dr. Christos Richardson IG # 0.01 10e3/ul Normal 0.00-0.03 [facility] Comment on above: Performed By: #### C BC #### [facility] [address] [place] [address] Dr. Christos Richardson IG % 0.2 % Normal 0.0-0.5 [facility] Comment on above: Performed By: #### C BC #### [facility] [address] [place] [address] Dr. Christos Richardson LYMPH # 2.4 103/ul Normal 1.2-3.8 [facility] Comment on above: Performed By: #### C BC #### [facility] [address] [place] [address] Dr. Christos Richardson Lymphocytes/100 WBC (Bld) 39.7 % Normal 20.5-60.0 [facility] Comment on above: Performed By: #### C BC #### [facility] [address] [place] [address] Dr. Christos Richardson MANUAL DIFF REQ NO Normal [facility] Comment on above: Performed By: #### C BC #### [facility] [address] [place] [address] Dr. Christos Richardson MCH (RBC) [Entitic mass] 29.0 pg Normal 26.7-34.0 [facility] Comment on above: Performed By: #### C BC #### [facility] [address] [place] [address] Dr. Christos Richardson MCHC (RBC) [Mass/Vol] 31.9 g/dL Normal 29.9-35.2 [facility] Comment on above: Performed By: #### C BC #### [facility] [address] [place] [address] Dr. Christos Richardson MCV (RBC) [Entitic vol] 90.8 fL Normal 81.0-99.0 [facility] Comment on above: Performed By: #### C BC #### [facility] [address] [place] [address] Dr. Christos Richardson MONO # 0.8 103/ul Normal 0.3-0.8 [facility] Comment on above: Performed By: #### C BC #### [facility] [address] [place] [address] Dr. Christos Richardson Monocytes/100 WBC (Bld) 13.5 % Critically high 1.7-12.0 [facility] Comment on above: Performed By: #### C BC #### [facility] [address] [place] [address] Dr. Christos Richardson NEUT # 2.7 103/ul Normal 1.4-6.5 [facility] Comment on above: Performed By: #### C BC #### [facility] [address] [place] [address] Dr. Christos Richardson Neutrophils/100 WBC (Bld) 44.3 % Normal 43.0-75.0 [facility] Comment on above: Performed By: #### C BC #### [facility] [address] [address] [address] Christos Richardson Platelet mean volume (Bld) [Entitic vol] 10.4 fL Normal 9.5-13.5 [facility] Comment on above: Performed By: #### C BC #### [facility] [address] [address] [address] Christos Richardson PLT 287 103/ul Normal 150-450 [facility] Comment on above: Performed By: #### C BC #### [facility] [address] [place] [address] Dr. Christos Richardson RBC 4.45 106/ul Normal 4.20-5.40 [facility] Comment on above: Performed By: #### C BC #### [facility] [address] [place] [address] Dr. Christos Richardson WBC 6.1 103/ul Normal 4.0-11.0 [facility] Comment on above: Performed By: #### C BC #### [facility] [address] [address] [address] Christos Richardson FREE THYROXINE INDEX T7on FTI 2.00 Normal 1.30-4.50 [facility] Comment on above: Performed By: #### C MP, T7, LIPID, TSH ####[facility] [address] [address]Dr. Christos Richardson T3U 35.0 % Normal 30.0-39.0 [facility] Comment on above: Performed By: #### C MP, T7, LIPID, TSH ####[facility] [address] [address]Dr. Christos Richardson T4 [Mass/Vol] 5.70 ug/dL Normal 4.80-13.90 [facility] Comment on above: Performed By: #### C MP, T7, LIPID, TSH ####[facility] [address] [address]Dr. Christos Richardson GLYCOHEMOGLOBIN A1Con 2021 ADA RECOMMENDATION SEE BELOW Normal [facility] Comment on above: Result Comment: ADA RECOMMENDED LIMIT 4.0 - 6.0 ADA THERAPEUTIC TARGET < 7.0 ACTION SUGGESTED > 7.0 Performed By: #### A 1C ####[facility] [address] [address]Dr. Christos Richardson Glucose [Mass/Vol] 114 mg/dL Normal [facility] Comment on above: Performed By: #### A 1C ####[facility] [address] [address]Dr. Christos Richardson HbA1c (Bld) [Mass fraction] 5.6 % Normal 4.5-6.2 [facility] Comment on above: Performed By: #### A 1C ####[facility] [address] [address]Dr. Christos Richardson IRONon 01-08-2022 Iron [Mass/Vol] 100.0 ug/dL Normal 50.0-170.0 [facility] Comment on above: Performed By: #### I BLANCO ####[facility] [address] [place], [place] [address]Dr. Christos Richardson LIPID PROFILEon 01-08-2022 CHOL-HDL RATIO NORM SEE BELOW Normal [facility] Comment on above: Result Comment: 3.3 - 4.4 LOW RISK 4.4 - 7.1 AVERAGE RISK 7.1 - 11.0 MODERATE RISK >11.0 HIGH RISK Performed By: #### C MP, T7, LIPID, TSH ####[facility] [address] [address]Dr. Christos Richardson Cholesterol [Mass/Vol] 187 mg/dL Normal <=200 [facility] Comment on above: Performed By: #### C MP, T7, LIPID, TSH ####[facility] [address] [address]Dr. Christos Richardson Cholesterol in HDL [Mass/Vol] 63 mg/dL Critically high 40-60 [facility] Comment on above: Performed By: #### C MP, T7, LIPID, TSH ####[facility] [address] [address]Dr. Christos Richardson Cholesterol in LDL [Mass/Vol] 110.8 mg/dL Normal [facility] Comment on above: Performed By: #### C MP, T7, LIPID, TSH ####[facility] [address] [address]Dr. Christos Richardson Cholesterol.total/Ch olesterol in HDL [Mass ratio] 3.0 {ratio} Normal [facility] Comment on above: Performed By: #### C MP, T7, LIPID, TSH ####[facility] [address] [address]Dr. Christos Richardson HDL NORMAL > or = 60 mg/dl - LOW CARDIOVASCULAR RISK <40 mg/dl - HIGH CARDIOVASCULAR RISK Normal [facility] Comment on above: Performed By: #### C MP, T7, LIPID, TSH ####[facility] [address] [address]Dr. Christos Richardson LDL CALC NORMAL SEE BELOW Normal [facility] Comment on above: Result Comment: <100 mg/dl OPTIMAL 100 - 129 mg/dl NEAR OR ABOVE OPTIMAL 130 - 159 mg/dl BORDERLINE HIGH 160 - 189 mg/dl HIGH >190 mg/dl VERY HIGH Performed By: #### C MP, T7, LIPID, TSH ####[facility] [address] [address]Dr. Christos Richardson Triglyceride [Mass/Vol] 66 mg/dL Normal <=150 [facility] Comment on above: Performed By: #### C MP, T7, LIPID, TSH ####[facility] [address] [address]Dr. Christos Richardson VLDL CALC 13.2 mg/dL Normal [facility] Comment on above: Performed By: #### C MP, T7, LIPID, TSH ####[facility] [address] [address]Dr. Christos Richardson PROF 14(COMP METB)on 022 Albumin [Mass/Vol] 3.4 g/dL Normal 3.4-5.0 [facility] Comment on above: Performed By: #### C MP, T7, LIPID, TSH ####[facility] [address] [address]Dr. Christos Richardson Albumin/Globulin [Mass ratio] 0.9 {ratio} Normal [facility] Comment on above: Performed By: #### C MP, T7, LIPID, TSH ####[facility] [address] [id number]. Christos Richardson ALP [Catalytic activity/Vol] 79 U/L Normal 46-116 [facility] Comment on above: Performed By: #### C MP, T7, LIPID, TSH ####[facility] [address] [place] [address]Dr. Christos Richardson ALT [Catalytic activity/Vol] 22 U/L Normal 14-59 [facility] Comment on above: Performed By: #### C MP, T7, LIPID, TSH ####[facility] [address] [place], [place] [address]Dr. Christos Richardson Anion gap [Moles/Vol] 11.5 mmol/L Normal [facility] Comment on above: Performed By: #### C MP, T7, LIPID, TSH ####[facility] [address] [place], [place] [address]Dr. Christos Richardson AST [Catalytic activity/Vol] 16 U/L Normal 15-37 [facility] Comment on above: Performed By: #### C MP, T7, LIPID, TSH ####[facility] [address] [place], [place] [address]Dr. Christos Richardson Bilirubin [Mass/Vol] 0.3 mg/dL Normal 0.2-1.0 [facility] Comment on above: Performed By: #### C MP, T7, LIPID, TSH ####[facility] Am[address]uz[address] [place], [place] [address]Dr. Christos Richardson Calcium [Mass/Vol] 9.1 mg/dL Normal 8.5-10.1 [facility] Comment on above: Performed By: #### C MP, T7, LIPID, TSH ####[facility] L[address] [place], [place] [address]Dr. Christos Richardson Chloride [Moles/Vol] 106 mmol/L Normal 98-107 [facility] Comment on above: Performed By: #### C MP, T7, LIPID, TSH ####[facility] [address] [place] [id number]. Christos Richardson CO2 [Moles/Vol] 27.7 mmol/L Normal 21.0-32.0 [facility] Comment on above: Performed By: #### C MP, T7, LIPID, TSH ####[facility] [address] [place] [id number]. Christos Richardson Creatinine [Mass/Vol] 0.75 mg/dL Normal 0.55-1.02 [facility] Comment on above: Performed By: #### C MP, T7, LIPID, TSH ####[facility] Pbprqft[address] [place] [id number]. Christos Richardson EGFR-AF CYMRAES >60 Normal >=60 [facility] Comment on above: Performed By: #### C MP, T7, LIPID, TSH ####[facility] [address] [place] [id number]. Christos Richardson EGFR-NON AF CYMRAES >60 Normal >=60 [facility] Comment on above: Performed By: #### C MP, T7, LIPID, TSH ####[facility] X[address]le[address] [place] [id number]. Christos Richardson Globulin (S) [Mass/Vol] 3.9 g/dL Normal [facility] Comment on above: Performed By: #### C MP, T7, LIPID, TSH ####[facility] [address] [place] [id number]. Christos Richardson Glucose [Mass/Vol] 95 mg/dL Normal 74-106 [facility] Comment on above: Performed By: #### C MP, T7, LIPID, TSH ####[facility] [address] [place] [id number]. Christos Richardson Potassium [Moles/Vol] 4.2 mmol/L Normal 3.5-5.1 [facility] Comment on above: Performed By: #### C MP, T7, LIPID, TSH ####[facility] [address] [place] [id number]. Christos Richardson Protein [Mass/Vol] 7.3 g/dL Normal 6.4-8.2 [facility] Comment on above: Performed By: #### C MP, T7, LIPID, TSH ####[facility] [address] [place] [id number]. Christos Richardson Sodium [Moles/Vol] 141 mmol/L Normal 136-145 [facility] Comment on above: Performed By: #### C MP, T7, LIPID, TSH ####[facility] [address] [place] [address]Dr. Christos Richardson Urea nitrogen [Mass/Vol] 15.0 mg/dL Normal 7.0-18.0 [facility] Comment on above: Performed By: #### C MP, T7, LIPID, TSH ####[facility] [address] [place] [address]Dr. Christos Richardson Urea nitrogen/Creatinine [Mass ratio] 20.0 mg/mg Normal [facility] Comment on above: Performed By: #### C MP, T7, LIPID, TSH ####[facility] [address] [place] [address]Dr. Christos Richardson TSHon 01-08-2022 TSH 3.880 uIU/mL Critically high 0.358-3.740 [facility] Comment on above: Performed By: #### C MP, T7, LIPID, TSH ####[facility] [address] [place] [address]Dr. Christos Richardson HIP LEFT 1 OR 2 VWS WITH PEL VISon 05-29-2021 HIP LEFT 1 OR [address] [facility] Department of Radiology [address] [place] [id number] Patient Name: BRIE EAGLE : 1955 [...] prosthesis. Electronically signed: Eder Crowder. Transcribed by: [email or web address], User Resident: EDER CROWDER Electronically Signed by: EDER CROWDER @ 05/30/2021 12:27 PM I personally read this/these film(s) with this resident Normal [facility] Comment on above: Order Comment: evalu ate Vital Signs Date Time Vital Sign Value Performing Clinician Facility 06-14-2023 09:30-0500 Body height 162.56 cm Sarah Sargent Other [facility] Other 06-14-2023 09:30-0500 Body mass index (BMI) [Ratio] 30.65 kg/m2 Sarah Sargent Other [facility] Other 06-14-2023 09:30-0500 Body temperature 98.8 [degF] Sarah Sargent Other [facility] Other 06-14-2023 09:30-0500 Body weight 81.01 kg Sarah Sargent Other [facility] Other 06-14-2023 09:30-0500 Diastolic blood pressure 67 mm[Hg] Sarah Sargent Other [facility] Other 06-14-2023 09:30-0500 Respiratory rate 16 /min Sarah Sargent Other [facility] Other 06-14-2023 09:30-0500 SaO2% (BldA) [Mass fraction] 96 % Sarah Sargent Other [facility] Other 06-14-2023 09:30-0500 Systolic blood pressure 129 mm[Hg] Sarah Sargent Other [facility] Other 09-10-2022 15:17-0400 Blood Pressure Location Lui BERNSTEINL [facility] [place] 09-10-2022 15:17-0400 Diastolic blood pressure 64 mm[Hg] Lui BERNSTEINL [facility] [place] 09-10-2022 15:17-0400 Heart rate 72 /min Lui BERNSTEINL [facility] [place] 09-10-2022 15:17-0400 Respiratory rate 16 /min Lui BERNSTEINL [facility] [place] 09-10-2022 15:17-0400 Systolic blood pressure 138 mm[Hg] Lui BERNSTEINL [facility] [place] 11-12-2021 17:50-0400 Body height 162.56 cm Olivia Dean Other [facility] Other 11-12-2021 17:50-0400 Body mass index (BMI) [Ratio] 27.46 kg/m2 Olivia Dean Other [facility] Other 11-12-2021 17:50-0400 Body temperature 97.8 [degF] Olivia Dean Other [facility] Other 11-12-2021 17:50-0400 Body weight 72.58 kg Olivia Dean Other [facility] Other 11-12-2021 17:50-0400 Diastolic blood pressure 59 mm[Hg] Olivia Mclaughlinmond Other [facility] Other 11-12-2021 17:50-0400 Respiratory rate 16 /min Olivia Dean Other [facility] Other 11-12-2021 17:50-0400 SaO2% (BldA) [Mass fraction] 98 % Olivia Mclaughlinmond Other [facility] Other 11-12-2021 17:50-0400 Systolic blood pressure 130 mm[Hg] Olivia Dean Other [facility] Other Encounters Encounter Date Encounter Type Care Provider Facility Start: 09-01-2023 End: 09-01-2023 ambulatory EUGENIO Charles TIMMIS Not Available Start: 06-14-2023 End: 06-14-2023 ambulatory Sarah Sargent Other [facility] Other Start: 06-14-2023 Office outpatient vi sit 25 minutes Sarah Sargent [facility] Start: 10-01-2022 End: 10-02-[address] LUI GAMINO . Facility:[facility] Start: 09-10-2022 End: 09-11-2022 [facility] Start: 09-10-2022 End: 09-10-2022 Patient encounter procedure Lui GAMINO [facility] Start: 08-06-2022 ambulatory Lui GAMINO Facility:[facility] [place] Start: 06-23-[address] LUI GAMINO . Facil ity:[facility] Start: 05-15-2022 End: 05-16-[address] [facility] Start: 04-28-2022 End: 04-29-[address] ARETHA BREWSTER . Facility:[facility] Start: 04-23-2022 End: 04-24-[address] ARETHA BREWSTER . Facility:[facility] Start: 04-10-2022 End: 04-11-[address] ARETHA BREWSTER . Facility:[facility] Start: 03-24-2022 End: 03-24-2022 ambulatory JESSICA MUKHERJEE . Facility:[facility] Start: 01-14-2022 Encounter for genera l adult medical examination without abnormal findings DR ARETHA BREWSTER . [facility] Start: 01-08-2022 End: 01-09-[address] ARETHA BREWSTER . Facility:[facility] Start: 01-08-2022 End: 01-09-2022 Encounter for general adult medical examination without abnormal findings DR ARETHA BREWSTER . Facility:[facility] Start: 11-12-2021 End: 11-12-2021 ambulatory Olivia Dean Other [facility] Other Start: 11-12-2021 Office outpatient vi sit 15 minutes Olivia Dean [facility] Procedures Date Procedure Procedure Detail Performing Clinician Arthroscopy of knee Lui GAMINO Colonoscopy Lui GAMINO Colonoscopy Lui NILL Dilatation of esophageal stricture Lui BERNSTEINL Esophagogastroduodenoscopy Neeta GAMINO Esophagogastroduodenoscopy Neeta BERNSTEINL Ligation of fallopian tube Neeta BERNSTEINL Reduction mammoplasty Michae ryan NILL Repair of hip Lui NILL Immunizations Immunization Date Immunization Notes Care Provider Fa cili 04-15-2022 influenza virus vaccine, unspecified formulation Lui BERNSTEINL [facility] [place] 04-14-2022 SARS-CoV-2 (COVID-19 ) [id number] Lui GAMINO [facility] 02-10-2022 SARS-CoV-2 mRNA (smbqkkkhrwp-opxb-hsvlq se) vaccine Lui BERNSTEINL [facility] 08-26-2021 SARS-CoV-2 mRNA (ttgawhuxpdr-dats-skzyf se) vaccine Lui GAMINO [facility] 02-25-2021 SARS-CoV-2 (COVID-19 ) mRNA BNT-162b2 vax Lui BERNSTEINL [facility] 02-04-2021 SARS-CoV-2 (COVID-19 ) mRNA BNT-162b2 vax Lui BERNSTEINL [facility] Payers Date Payer Category Payer Medicare [id number] 1955 Unknown [id number] 2.16.84 [id number] 1955 Unknown [id number] 2.16.84 [id number] 1955 Unknown [id number] 2.16.84 [id number] 1955 Unknown [id number] 2.16.84 [id number] 1955 Unknown [id number] 2.16.84 [id number] 1955 Unknown [id number] 2.16.84 [id number] 1955 Unknown [id number] 2.16.84 [id number] 1955 Unknown [id number] 2.16.8 [id number] 1955 Unknown [id number] 2.16.8 [id number] 1955 Unknown [id number] 2.16.84 [id number] Private Health Insurance [id number] Social History Date Type Detail Facility Sex Assigned At [facility] Start: 09-10-2022 Tobacco smoking status Ex-smoker (fi nding) [facility] [place] Tobacco smoking status Never Gener al [facility] [place] Functional Status Date Assessment Result Facility 09-10-2022 Functional Status N/A [facility] Clinical Notes 11-12-2021 to 06-14-2023 Note [...] previous rx of steroids. Use rx of [place] as directed. Discussed importance of adequate hydration [...] plan. Patient sent home in stable condition. [facility] Other 04-19-2023 NoteOPERATIVE NOTE OPERATION DATE: 10/01/2022 ADDENDUM: Please add to the operative report - Follow up screening colonoscopy should be in 10 years.[id number] NoteOPERATIVE NOTE OPERATION DATE: 10/01/2022 PREOPERATIVE DIAGNOSIS: [...] in good condition. CC: Aretha Brewster M.D.[facility] [id number] NoteChief Complaint consultation for screening colonoscopy HPI [...] and Sister. Immunizations Vaccin (more content not included)...[facility]Result Comment: Electronically Signed By: Lui GAMINO MD\Date and Time Signed: 09/10/22 16:09 [id number] NoteOrthopaedic Surgery Outpatient Visit Note Encounter Date: [...] incisional issues. Follow Up: No follow-ups on file.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) [facility] Other Evaluation + Plan note No data available for this section General Surgery [place] History general Narrative - Reported* Type Description Date Medical History arthritis Surgical History pyloniadal cyst Surgical History both knee Surgical History breast reduction Surgical History tubal ligation Surgical History Total hip replacement Hospitalization History see above surg hx [facility] Other History general Narrative - Reported* Type Description Date Medical History arthritis Medical History GERD Surgical History pyloniadal cyst Surgical History both knee Surgical History breast reduction Surgical History tubal ligation Surgical History Total hip replacement Hospitalization History see above surg hx [facility] [employer] Other Hospital Discharge instructions No data available for this section General Surgery [place] note No data available for this section General Surgery [place] Summary Purpose Family History No Family History Records FoundNo Family History Records FoundNo Family History Records FoundNo Family History Records FoundNo Family History Records Found Advance Directives No Advanced Directives Records FoundNo Advanced Directives Records FoundNo Advanced Directives Records FoundNo Advanced Directives Records FoundNo Advanced Directives Records Found Additional Source Comments INFORMATION SOURCE (unrecogn ized section and content) DATE CREATED AUTHOR 10/25/2021 [facility] DATE CREATED AUTHOR AUTHOR'S ORGANIZ ATION 05/17/2022 [facility] DATE CREATED AUTHOR AUTHOR'S ORGANIZ ATION 10/10/2022 [facility] DATE CREATED AUTHOR AUTHOR'S ORGANIZ ATION 10/10/2022 [facility] DATE CREATED AUTHOR AUTHOR'S ORGANIZ ATION 09/02/2023 [facility] EPIC REASON FOR VISIT (unrecogniz ed section and content) LEFT LEG SPIDER BITE, GOT BI T YESTERDAY AND IS GETTING WORSEHEAD COLD , HEADACHE, COUGH Patient Care team informatio n (unrecognized section and content) Personnel Name: Aretha Brewster MD Address: Address: [address] [place] [address] FOR RECORDS PERTAINING TO PATIENTS WHO ARE [...] BE BASED ON THE PRIMARY CLINICAL RECORDS. [employer] provides no warranty or guarantee of the accuracy or completeness of information in this document.
[2024-01-06 07:33] LABS: Basophils Absolute Auto 0.1 10^3/uL (0.0-0.1); Basophils Percent Auto 0.9 % (0.2-2.0); Eosinophils Absolute Auto 0.1 10^3/uL (0.0-0.7); Eosinophils Percent Auto 1.3 % (0.9-7.0); Hematocrit 42.5 % (36.0-48.0); Hemoglobin 13.9 g/dL (12.0-16.0); Immature Granulocytes Abs Auto 0.01 10^3/uL (0.00-0.03); Immature Granulocytes Pct Auto 0.1 % (0.0-0.5); Lymphocytes Absolute Auto 2.6 10^3/uL (1.2-3.8); Mean Corpuscular HGB Conc 32.7 g/dL (29.9-35.2); Mean Corpuscular Hemoglobin 29.3 pg (26.7-34.0); Mean Corpuscular Volume 89.7 fL (81.0-99.0); Monocytes Absolute Auto 0.9 10^3/uL (0.3-0.8); Monocytes Percent Auto 13.7 % (1.7-12.0); Platelet Count 282 10^3/uL (150-450); Red Blood Count 4.74 10^6/uL (4.20-5.40); Red Cell Distribution Width 13.4 % (11.0-15.0); White Blood Count 6.7 10^3/uL (4.0-11.0)
[2024-01-06 07:46] LABS: Estimated GFR (African America >60 (>=60); Estimated GFR (Non-African Ame >60 (>=60)
[2024-01-06 09:11] LABS: Erythrocyte Sedimentation Rate 60 mm/hr (<=30)
[2024-01-07 06:09] LABS: Rheumatoid Factor (RF) <10.0 IU/mL (<14.0)
[2024-01-08 15:13] LABS: Antinuclear Antibodies, IFA Negative (.)
== END 2024-01-06 06:41 | disposition home or self-care (01) ==
LOC: LAB 06:42
PROVIDERS: PCP Family Medicine; Visit Provider Otolaryngology
DX: K11.20 Sialoadenitis, unspecified (principal)
CPT/HCPCS: 36415; 82565; 85025; 85652; 86038; 86140; 86431

== ENCOUNTER 2024-01-11 13:14 | Outpatient (OUT) | payer MEDICARE, SELFPAY ==
--- OUTSIDE RECORDS SUMMARY | 2024-01-07 15:45 | XMS_ITS | CCD ---
Author Organization [facility] CliniSyaz Care Team Providers Care Audience Coordinator Name Role Phone Olivia Dean Unavailable TIMMY TINSLEY Referring Unavailable TIMMY TINSLEY Attending Unavailable Aretha Brewster Primary Care Physician [phone] JESSICA PACHECO Attending Unavailable YAZ ., JESSICA [...] Olivera Consulting Unavailable Lui GAMINO Attending Unavailable NILLLui Attending Unavailable Sarah Sargent Unavailable EUGENIO GARCIA Attending Unavailable EUGENIO GARCIA Attending Unavailable Allergies Allergy Classification Reported Allergen(s) Allergy Type Date of Onset Reaction(s) Facility (4 sources) Erythromycin; Translations: [erythromycin] Drug Allergy GI upset [facility] [place] (5 sources) Latex; Translations: [LATEX] Propensity to adverse reactions 05-15-20 Inflammatory dermatosis (disorder) [facility] Repository (2 sources) Penicillin G Drug Allergy anaphylaxis [employer] Other (3 sources) Penicillins; Translations: [PENICILLINS] Propensity to adverse reactions to drug (disorder) 05-15-20 Anaphylaxis (disorder) [facility] Repository (2 sources) ERYTHROMYCIN BASE; Translations: [ERYTHROMYCIN BASE] Propensity to adverse reactions to drug (disorder) 05-15-20 [facility] Repository (1 source) natural latex rubber Drug allergy (disorder) 09-23-19 23 [facility] Repository (1 source) Penicillin Drug Allergy [facility] Repository Medications Current Medications Medication Drug Class(es) [...] 1.5 mg/ml oral solution (1 source) Uncompetitive V-tslqmu-W-aspartat e 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, Sigma-1 Agonist Start: 06-14-2023 take 10 mL by mouth every eight hours [place] DM 7.5-7.5 MG/5ML 10 mL Orally every [...] Osteoarthritis 08-29-2022 Chronic Other aftercare (1 source) 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; 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] Onset: 10-02-2022 Episodic [...] 03-24-2022 Episodic Other aftercare (1 source) Other 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) drug therapy; Translations: [[facility] HOME CURRENT DRUG THERAPY] Onset: 01-14-2022 Episodic Other bone disease and musculoskeletal deformities (1 source) Other specified disorders of bone density and structure, unspecified site; Translations: [[facility] D/O BONE DEN STRUCT UNS SITE] Onset: [...] (COVID-19) RNA VIVEK+probe Ql (Unsp spec) Negative [employer] Other COVID/FLU/RSV RT-PCR Negative [employer] Other COVID/FLU/RSV RT-PCR Positive [facility] [employer] Other Outside Colonoscopyon 2022 Outside Colonoscopy [id number] 0#1.00CD:127 [facility] Reminderson 10-02-2022 Reminders - From: Kisha Samuel LPN To: N - Clinical; Sent: 10/02/2022 08:43:18 EDT Show up: 08/31/2032 07:00:00 EDT Subject: colonoscopy recall Due Date/Time: 10/01/2032 07:00:00 EDT Reminder/Recall Patient is due for screening colonoscopy 10/01/2032. [facility] Consent for Procedure/Surger yon 09-11-2022 Consent for Procedure/Surgery [id number] #1.00CD:127 [facility] Facesheeton 09-11-2022 Facesheet [id number] #1.00CD:127 [facility] Pre-Certification Formon Pre-Certification Form [id number] 1#1.00CD:127 [facility] Ambulatory Visit Summaryon 0 09-10-2022 Ambulatory Visit [...] reflux disease) Osteoarthritis Seasonal allergic rhinitis Normal [facility] Physician Referralon 023 Physician Referral [id number] #1.00CD:127 Normal [facility] Follow-Upon 05-15-2022 Follow-Up [id number] Brie Eagle 1955 F Date Provider Department Center 05/15/2022 Piedad-TIMMY TINSLEY MP ORTHO MPORTHO Family History Problem Relation Age of Onset Diabetes Mother Heart disease Mother Arthritis Mother No Known Problems Father Family Status - Relation Status Age at Mother Father Level of Service:97636 RI OFFICE/OUTPATIENT ESTABLISHED LOW [facility] 20-29 MIN Reason for Visit and Comments: Follow-up [082344] - Yearly follow up Normal [facility] XR DEXA BONE DENSITYon 04-28 XR [...] by: STEPHANIE RAYA Date: 2022-04-28 17:04 Normal [facility] MG MAMM SCREEN 3D ARCELIA CADon 04-23-2022 MG MAMM SCREEN 3D ARCELIA CAD Patient: BRIE EAGLE Exam Date: 04/23/2022 : 1955 Gender:F Ordering : DR ARETHA BREWSTER . Admission #: [id number] Family : Order #: [id number] CLICK HERE TO VIEW EXAM RADIOLOGY REPORT PROCEDURE: MAMMOGRAM SCREENING 3D BILATERAL CAD COMPARISON: MG MAMM SCREEN 3D ARCELIA CAD, 04/17/2021. INDICATIONS: Screening mammography Calculator Name NCI Breast Cancer Risk Assessment Tool 5 Year Breast Cancer Risk Not Reported. Lifetime Breast Cancer Risk Not Reported. Personal Breast Cancer No Personal Ovarian Cancer No Treatments None Family Cancers None LOCATION: [facility] BREAST COMPOSITION: Scattered areas fibroglandular density. [...] MD on 04/23/2022 at 13:10 Normal [facility] NM STRESS/REST MULTIon 04-10 NM STRESS/REST MULTI Patient: BRIE EAGLE Exam Date: 04/10/2022 : 1955 Gender:F Ordering : DR ARETHA BREWSTER . Admission #: [id number] Family : Order #: [id number] CLICK HERE TO VIEW EXAM RADIOLOGY REPORT [...] M.D. on 04/10/2022 at 13:53 Normal [facility] AMYLASEon 03-24-2022 Amylase [Catalytic activity/Vol] 51 U/L Normal 25-115 [facility] Comment on above: Performed By: #### A MY, LIPA, CMADM, HSTROPN #### [facility] Laboratory [address] [address] [address] Christos Richardson CARDIAC MONA ADMITon 022 CK [Catalytic activity/Vol] 67 U/L Normal 26-192 [facility] Comment on above: Performed By: #### A MY, LIPA, CMADM, HSTROPN #### [facility] Laboratory [address] [address] [address] Christos Richardson CK.MB [Mass/Vol] 0.93 ng/mL Normal <=3.60 [facility] Comment on above: Performed By: #### A MY, LIPA, CMADM, HSTROPN #### [facility] Laboratory [address] [address] [address] Christos Richardson GAYATHRI 32 ng/mL Normal 9-82 [facility] Comment on above: Performed By: #### A MY, LIPA, CMADM, HSTROPN #### [facility] Laboratory [address] [address] [address] Christos Richardson CBC AUTO DIFFon 03-24-2022 BASO # 0.1 103/ul Normal 0.0-0.1 [facility] Comment on above: Performed By: #### C BC ####[facility] [address] [address]Dr. Christos Richardson Basophils/100 WBC (Bld) 0.7 % Normal 0.2-2.0 [facility] Comment on above: Performed By: #### C BC ####[facility] [address] [address]Dr. Christos Richardson EO # 0.1 103/ul Normal 0.0-0.7 [facility] Comment on above: Performed By: #### C BC ####[facility] [address] [address]Dr. Christos Richardson Eosinophils/100 WBC (Bld) 0.8 % Critically low 0.9-7.0 [facility] Comment on above: Performed By: #### C BC ####[facility] [address] [place], [place] [address]Dr. Christos Richardson Erythrocyte distribution width (RBC) [Ratio] 13.4 % Normal 11.0-15.0 [facility] Comment on above: Performed By: #### C BC ####[facility] [address] [place], [place] [address]Dr. Christos Richardson Hematocrit (Bld) [Volume fraction] 40.9 % Normal 36.0-48.0 [facility] Comment on above: Performed By: #### C BC ####[facility] [address] [place], [place] [address]Dr. Christos Richardson Hemoglobin (Bld) [Mass/Vol] 13.3 g/dL Normal 12.0-16.0 [facility] Comment on above: Performed By: #### C BC ####[facility] [address] [place], [place] [address]Dr. Christos Richardson IG # 0.02 10e3/ul Normal 0.00-0.03 [facility] Comment on above: Performed By: #### C BC ####[facility] [address] [place], [place] [address]Dr. Christos Richardson IG % 0.3 % Normal 0.0-0.5 [facility] Comment on above: Performed By: #### C BC ####[facility] [address] [place], [place] [address]Dr. Devoramarissa Richardson LYMPH # 2.3 103/ul Normal 1.2-3.8 [facility] Comment on above: Performed By: #### C BC ####[facility] [address] [id number]. Christos Dylan Lymphocytes/100 WBC (Bld) 32.6 % Normal 20.5-60.0 [facility] Comment on above: Performed By: #### C BC ####[facility] [address] [id number]. Christos Richardson MANUAL DIFF REQ NO Normal [facility] Comment on above: Performed By: #### C BC ####[facility] [address] [id number]. Christos Dylan MCH (RBC) [Entitic mass] 29.2 pg Normal 26.7-34.0 [facility] Comment on above: Performed By: #### C BC ####[facility] [address] [place], [place] [address]Dr. Devoramarissa Richardson MCHC (RBC) [Mass/Vol] 32.5 g/dL Normal 29.9-35.2 [facility] Comment on above: Performed By: #### C BC ####[facility] [address] [place], [place] [address]Dr. Christos Dylan MCV (RBC) [Entitic vol] 89.9 fL Normal 81.0-99.0 [facility] Comment on above: Performed By: #### C BC ####[facility] [address] [place], [place] [address]Dr. Christos Richardson MONO # 1.0 103/ul Critically high 0.3-0.8 [facility] Comment on above: Performed By: #### C BC ####[facility] [address] [place], [place] [address]Dr. Devoramarissa Richardson Monocytes/100 WBC (Bld) 14.2 % Critically high 1.7-12.0 [facility] Comment on above: Performed By: #### C BC ####[facility] [address] [place], [place] [address]Dr. Christos Richardson NEUT # 3.7 103/ul Normal 1.4-6.5 [facility] Comment on above: Performed By: #### C BC ####[facility] [address] [id number]. Christos Rcihardson Neutrophils/100 WBC (Bld) 51.4 % Normal 43.0-75.0 [facility] Comment on above: Performed By: #### C BC ####[facility] [address] [id number]. Christos Richardson Platelet mean volume (Bld) [Entitic vol] 9.7 fL Normal 9.5-13.5 [facility] Comment on above: Performed By: #### C BC ####[facility] [address] [id number]. Christos Richardson PLT 271 103/ul Normal 150-450 [facility] Comment on above: Performed By: #### C BC ####[facility] [address] [id number]. Christos Richardson RBC 4.55 106/ul Normal 4.20-5.40 [facility] Comment on above: Performed By: #### C BC ####[facility] [address] [id number]. Christos Richardson WBC 7.1 103/ul Normal 4.0-11.0 [facility] Comment on above: Performed By: #### C BC ####[facility] [address] [id number] Richardson LIPASEon 03-24-2022 Lipase [Catalytic activity/Vol] 104.0 U/L Normal 73.0-393.0 [facility] Comment on above: Performed By: #### A MY, LIPA, CMADM, HSTROPN #### [facility] Laboratory [address] [place], [place] [address] Dr. Christos Richardson TROPONIN, HIGH SENSITIVITYon 03-24-2022 HSTROP 6.6 pg/mL Normal 4.0-51.3 [facility] Comment on above: Result Comment: CUT- OFF POINTS HAVE BEEN ESTABLISHED BASED ON THE FOURTH UNIVERSAL DEFINITIONS OF MYOCARDIAL INFARCTION. THE UPPER REFERENCE LIMIT (URL) OF TROPONIN, DEFINED THE 99TH PERCENTILE OF cTnI DISTRIBUTION IN A REFERENCE POPULATION, HAS BEEN CONFIRMED THE DECISION THRESHOLD FOR OK DIAGNOSIS. Performed By: #### H STROPN ####[facility] [address] [place], [place] [address]Dr. Christos Richardson HSTROP 6.3 pg/mL Normal 4.0-51.3 [facility] Comment on above: Result Comment: CUT- OFF POINTS HAVE BEEN ESTABLISHED BASED ON THE FOURTH UNIVERSAL DEFINITIONS OF MYOCARDIAL INFARCTION. THE UPPER REFERENCE LIMIT (URL) OF TROPONIN, DEFINED THE 99TH PERCENTILE OF cTnI DISTRIBUTION IN A REFERENCE POPULATION, HAS BEEN CONFIRMED THE DECISION THRESHOLD FOR OK DIAGNOSIS. Performed By: #### A MY, LIPA, CMADM, HSTROPN #### [facility] Laboratory [address] [address] [address] Christos Richardson XR CHEST 1 Von [...] ULISES CALDERON Date: 2022-03-24 13:53 Normal [facility] INSULINon 01-09-2022 Insulin 10.4 uIU/mL Normal 2.6-24.9 [facility] Comment on above: Performed By: #### I NSULIN #### [facility] Laboratory [address] [place], [place] [address] Dr. Christos Richardson CBC AUTO DIFFon 01-08-2022 BASO # 0.1 103/ul Normal 0.0-0.1 [facility] Comment on above: Performed By: #### C BC #### [facility] Laboratory [address] [place], [place] [address] Dr. Christos Richardson Basophils/100 WBC (Bld) 0.8 % Normal 0.2-2.0 [facility] Comment on above: Performed By: #### C BC #### [facility] Laboratory [address] [place] [address] Dr. Christos Richardson EO # 0.1 103/ul Normal 0.0-0.7 [facility] Comment on above: Performed By: #### C BC #### [facility] Laboratory [address] [place] [address] Dr. Christos Richardson Eosinophils/100 WBC (Bld) 1.5 % Normal 0.9-7.0 [facility] Comment on above: Performed By: #### C BC #### [facility] Laboratory [address] [place] [address] Dr. Christos Richardson Erythrocyte distribution width (RBC) [Ratio] 13.6 % Normal 11.0-15.0 [facility] Comment on above: Performed By: #### C BC #### [facility] Laboratory [address] [place] [address] Dr. Christos Richardson Hematocrit (Bld) [Volume fraction] 40.4 % Normal 36.0-48.0 [facility] Comment on above: Performed By: #### C BC #### [facility] Laboratory [address] [place] [address] Dr. Christos Richardson Hemoglobin (Bld) [Mass/Vol] 12.9 g/dL Normal 12.0-16.0 [facility] Comment on above: Performed By: #### C BC #### [facility] Laboratory [address] [place] [address] Dr. Christos Richardson IG # 0.01 10e3/ul Normal 0.00-0.03 [facility] Comment on above: Performed By: #### C BC #### [facility] Laboratory [address] [place] [address] Dr. Christos Richardson IG % 0.2 % Normal 0.0-0.5 [facility] Comment on above: Performed By: #### C BC #### [facility] Laboratory [address] [place] [address] Dr. Christos Richardson LYMPH # 2.4 103/ul Normal 1.2-3.8 [facility] Comment on above: Performed By: #### C BC #### [facility] Laboratory [address] [place] [address] Dr. Christos Richardson Lymphocytes/100 WBC (Bld) 39.7 % Normal 20.5-60.0 [facility] Comment on above: Performed By: #### C BC #### [facility] Laboratory [address] [place] [address] Dr. Christos Richardson MANUAL DIFF REQ NO Normal [facility] Comment on above: Performed By: #### C BC #### [facility] Laboratory [address] [place] [address] Dr. Christos Richardson MCH (RBC) [Entitic mass] 29.0 pg Normal 26.7-34.0 [facility] Comment on above: Performed By: #### C BC #### [facility] Laboratory [address] [place] [address] Dr. Christos Richardson MCHC (RBC) [Mass/Vol] 31.9 g/dL Normal 29.9-35.2 [facility] Comment on above: Performed By: #### C BC #### [facility] Laboratory [address] [place] [address] Dr. Christos Richardson MCV (RBC) [Entitic vol] 90.8 fL Normal 81.0-99.0 [facility] Comment on above: Performed By: #### C BC #### [facility] Laboratory [address] [place] [address] Dr. Christos Richardson MONO # 0.8 103/ul Normal 0.3-0.8 [facility] Comment on above: Performed By: #### C BC #### [facility] Laboratory [address] [place] [address] Dr. Christos Richardson Monocytes/100 WBC (Bld) 13.5 % Critically high 1.7-12.0 [facility] Comment on above: Performed By: #### C BC #### [facility] Laboratory [address] [place] [address] Dr. Christos Richardson NEUT # 2.7 103/ul Normal 1.4-6.5 [facility] Comment on above: Performed By: #### C BC #### [facility] Laboratory [address] [place] [address] Dr. Christos Richardson Neutrophils/100 WBC (Bld) 44.3 % Normal 43.0-75.0 [facility] Comment on above: Performed By: #### C BC #### [facility] Laboratory [address] [address] [address] Christos Richardson Platelet mean volume (Bld) [Entitic vol] 10.4 fL Normal 9.5-13.5 [facility] Comment on above: Performed By: #### C BC #### [facility] Laboratory [address] [address] [address] Christos Richardson PLT 287 103/ul Normal 150-450 [facility] Comment on above: Performed By: #### C BC #### [facility] Laboratory [address] [place] [address] Dr. Christos Richardson RBC 4.45 106/ul Normal 4.20-5.40 [facility] Comment on above: Performed By: #### C BC #### [facility] Laboratory [address] [address] [address] Christos Richardson WBC 6.1 103/ul Normal 4.0-11.0 [facility] Comment on above: Performed By: #### C BC #### [facility] Laboratory [address] [place] [address] Dr. Christos Richardson FREE THYROXINE INDEX T7on FTI 2.00 Normal 1.30-4.50 [facility] Comment on above: Performed By: #### C MP, T7, LIPID, TSH ####[facility] [address] [id number]. Christos Richardson T3U 35.0 % Normal 30.0-39.0 [facility] Comment on above: Performed By: #### C MP, T7, LIPID, TSH ####[facility] [address] [address]Dr. Christos Richardson T4 [Mass/Vol] 5.70 ug/dL Normal 4.80-13.90 [facility] Comment on above: Performed By: #### C MP, T7, LIPID, TSH ####[facility] [address] [address]Dr. Christos Richardson GLYCOHEMOGLOBIN A1Con 2021 ADA RECOMMENDATION SEE BELOW Normal [facility] Comment on above: Result Comment: ADA RECOMMENDED LIMIT 4.0 - 6.0 ADA THERAPEUTIC TARGET < 7.0 ACTION SUGGESTED > 7.0 Performed By: #### A 1C ####[facility] [address] [place], [place] [address]Dr. Christos Richardson Glucose [Mass/Vol] 114 mg/dL Normal [facility] Comment on above: Performed By: #### A 1C ####[facility] [address] [place], [place] [address]Dr. Christos Richardson HbA1c (Bld) [Mass fraction] 5.6 % Normal 4.5-6.2 [facility] Comment on above: Performed By: #### A 1C ####[facility] [address] [place], [place] [address]Dr. Christos Richardson IRONon 01-08-2022 Iron [Mass/Vol] 100.0 ug/dL Normal 50.0-170.0 [facility] Comment on above: Performed By: #### I BLANCO ####[facility] [address] [place], [place] [address]Dr. Christos Richardson LIPID PROFILEon 01-08-2022 CHOL-HDL RATIO NORM SEE BELOW Normal [facility] Comment on above: Result Comment: 3.3 - 4.4 LOW RISK 4.4 - 7.1 AVERAGE RISK 7.1 - 11.0 MODERATE RISK >11.0 HIGH RISK Performed By: #### C MP, T7, LIPID, TSH ####[facility] [address] [place], [place] [address]Dr. Christos Richardson Cholesterol [Mass/Vol] 187 mg/dL Normal <=200 [facility] Comment on above: Performed By: #### C MP, T7, LIPID, TSH ####[facility] [address] [id number]. Christos Richardson Cholesterol in HDL [Mass/Vol] 63 mg/dL Critically high 40-60 [facility] Comment on above: Performed By: #### C MP, T7, LIPID, TSH ####[facility] [address] [address]Dr. Christos Richardson Cholesterol in LDL [Mass/Vol] 110.8 mg/dL Normal [facility] Comment on above: Performed By: #### C MP, T7, LIPID, TSH ####[facility] [address] [address]Dr. Christos Richardson Cholesterol.total/Ch olesterol in HDL [Mass ratio] 3.0 {ratio} Normal [facility] Comment on above: Performed By: #### C MP, T7, LIPID, TSH ####[facility] [address] [address]Dr. Christos Richardson HDL NORMAL > or = 60 mg/dl - LOW CARDIOVASCULAR RISK <40 mg/dl - HIGH CARDIOVASCULAR RISK Normal [facility] Comment on above: Performed By: #### C MP, T7, LIPID, TSH ####[facility] [address] [address]Dr. Christos Richardson LDL CALC NORMAL SEE BELOW Normal [facility] Comment on above: Result Comment: <100 mg/dl OPTIMAL 100 - 129 mg/dl NEAR OR ABOVE OPTIMAL 130 - 159 mg/dl BORDERLINE HIGH 160 - 189 mg/dl HIGH >190 mg/dl VERY HIGH Performed By: #### C MP, T7, LIPID, TSH ####[facility] [address] [address]Dr. Christos Richardson Triglyceride [Mass/Vol] 66 mg/dL Normal <=150 [facility] Comment on above: Performed By: #### C MP, T7, LIPID, TSH ####[facility] [address] [address]Dr. Christos Richardson VLDL CALC 13.2 mg/dL Normal [facility] Comment on above: Performed By: #### C MP, T7, LIPID, TSH ####[facility] [address] [address]Dr. Christos Richardson PROF 14(COMP METB)on 022 Albumin [Mass/Vol] 3.4 g/dL Normal 3.4-5.0 [facility] Comment on above: Performed By: #### C MP, T7, LIPID, TSH ####[facility] [address] [address]Dr. Christos Richardson Albumin/Globulin [Mass ratio] 0.9 {ratio} Normal [facility] Comment on above: Performed By: #### C MP, T7, LIPID, TSH ####[facility] [address] [place] [address]Dr. Christos Richardson ALP [Catalytic activity/Vol] 79 U/L Normal 46-116 [facility] Comment on above: Performed By: #### C MP, T7, LIPID, TSH ####[facility] [address] [place] [address]Dr. Christos Richardson ALT [Catalytic activity/Vol] 22 U/L Normal 14-59 [facility] Comment on above: Performed By: #### C MP, T7, LIPID, TSH ####[facility] [address] [place], [place] [address]Dr. Christos Richardson Anion gap [Moles/Vol] 11.5 mmol/L Normal [facility] Comment on above: Performed By: #### C MP, T7, LIPID, TSH ####[facility] [address] [place], [place] [address]Dr. Devoramarissa Richardson AST [Catalytic activity/Vol] 16 U/L Normal 15-37 [facility] Comment on above: Performed By: #### C MP, T7, LIPID, TSH ####[facility] [address] [place], [place] [address]Dr. Christos Richardson Bilirubin [Mass/Vol] 0.3 mg/dL Normal 0.2-1.0 [facility] Comment on above: Performed By: #### C MP, T7, LIPID, TSH ####[facility] [address] [place], [place] [address]Dr. Christos Richardson Calcium [Mass/Vol] 9.1 mg/dL Normal 8.5-10.1 [facility] Comment on above: Performed By: #### C MP, T7, LIPID, TSH ####[facility] [address] [place], [place] [id number]. Christos Richardson Chloride [Moles/Vol] 106 mmol/L Normal 98-107 [facility] Comment on above: Performed By: #### C MP, T7, LIPID, TSH ####[facility] [address] [place] [address]Dr. Christos Richardson CO2 [Moles/Vol] 27.7 mmol/L Normal 21.0-32.0 [facility] Comment on above: Performed By: #### C MP, T7, LIPID, TSH ####[facility] [address] [place] [address]Dr. Christos Richardson Creatinine [Mass/Vol] 0.75 mg/dL Normal 0.55-1.02 [facility] Comment on above: Performed By: #### C MP, T7, LIPID, TSH ####[facility] [address] [place] [address]Dr. Christos Richardson EGFR-AF MALAYSIAN >60 Normal >=60 [facility] Comment on above: Performed By: #### C MP, T7, LIPID, TSH ####[facility] [address] [place] [address]Dr. Christos Richardson EGFR-NON AF MALAYSIAN >60 Normal >=60 [facility] Comment on above: Performed By: #### C MP, T7, LIPID, TSH ####[facility] [address] [place] [address]Dr. Christos Richardson Globulin (S) [Mass/Vol] 3.9 g/dL Normal [facility] Comment on above: Performed By: #### C MP, T7, LIPID, TSH ####[facility] [address] [place] [address]Dr. Christos Richardson Glucose [Mass/Vol] 95 mg/dL Normal 74-106 [facility] Comment on above: Performed By: #### C MP, T7, LIPID, TSH ####[facility] [address] [place] [address]Dr. Christos Richardson Potassium [Moles/Vol] 4.2 mmol/L Normal 3.5-5.1 [facility] Comment on above: Performed By: #### C MP, T7, LIPID, TSH ####[facility] [address] [place] [address]Dr. Christos Richardson Protein [Mass/Vol] 7.3 g/dL Normal 6.4-8.2 [facility] Comment on above: Performed By: #### C MP, T7, LIPID, TSH ####[facility] [address] [place] [address]Dr. Christos Richardson Sodium [Moles/Vol] 141 mmol/L Normal 136-145 [facility] Comment on above: Performed By: #### C MP, T7, LIPID, TSH ####[facility] [address] [place] [address]Dr. Christos Richardson Urea nitrogen [Mass/Vol] 15.0 mg/dL Normal 7.0-18.0 [facility] Comment on above: Performed By: #### C MP, T7, LIPID, TSH ####[facility] [address] [place] [address]Dr. Christos Richardson Urea nitrogen/Creatinine [Mass ratio] 20.0 mg/mg Normal [facility] Comment on above: Performed By: #### C MP, T7, LIPID, TSH ####[facility] [address] [place] [address]Dr. Christos Richardson TSHon 01-08-2022 TSH 3.880 uIU/mL Critically high 0.358-3.740 [facility] Comment on above: Performed By: #### C MP, T7, LIPID, TSH ####[facility] [address] [place] [address]Dr. Christos Richardson HIP LEFT 1 OR 2 VWS WITH PEL VISon 05-29-2021 HIP LEFT 1 OR 2 VWS WITH PELVIS [facility] Department of Radiology [address] [place] [id number] Patient Name: BRIE EAGLE : 1955 [...] prosthesis. Electronically signed: Eder Crowder. Transcribed by: [email or web address], User Resident: EDER CROWDER Electronically Signed by: EDER CROWDER @ 05/30/2021 12:27 PM I personally read this/these film(s) with this resident Normal [facility] Comment on above: Order Comment: evalu ate Vital Signs Date Time Vital Sign Value Performing Clinician Facility 06-14-2023 09:30-0500 Body height 162.56 cm Sarah Sargent Other [facility] Other 06-14-2023 09:30-0500 Body mass index (BMI) [Ratio] 30.65 kg/m2 Sarah Sargent Other [facility] Other 06-14-2023 09:30-0500 Body temperature 98.8 [degF] Sarah Sargent Other [facility] Other 06-14-2023 09:30-0500 Body weight 81.01 kg Sarah Sargent Other [facility] Other 06-14-2023 09:30-0500 Diastolic blood pressure 67 mm[Hg] Sarah Sargent Other [facility] Other 06-14-2023 09:30-0500 Respiratory rate 16 /min Sarah Sargent Other [facility] Other 06-14-2023 09:30-0500 SaO2% (BldA) [Mass fraction] 96 % Sarah Sargent Other [facility] Other 06-14-2023 09:30-0500 Systolic blood pressure 129 mm[Hg] Sarah Sargent Other [facility] Other 09-10-2022 15:17-0400 Blood Pressure Location Lui BENRSTEINL [facility] 09-10-2022 15:17-0400 Diastolic blood pressure 64 mm[Hg] Lui BERNSTEINL [facility] 09-10-2022 15:17-0400 Heart rate 72 /min Lui BERNSTEINL [facility] 09-10-2022 15:17-0400 Respiratory rate 16 /min Lui BERNSTEINL [facility] 09-10-2022 15:17-0400 Systolic blood pressure 138 mm[Hg] Lui BERNSTEINL [facility] 11-12-2021 17:50-0400 Body height 162.56 cm Olivia Dean Other [employer] Other 11-12-2021 17:50-0400 Body mass index (BMI) [Ratio] 27.46 kg/m2 Olivia Mclaughlinmond Other [employer] Other 11-12-2021 17:50-0400 Body temperature 97.8 [degF] Olivia Mclaughlinmond Other [facility] Other 11-12-2021 17:50-0400 Body weight 72.58 kg Olivia Mclaughlinmond Other [facility] Other 11-12-2021 17:50-0400 Diastolic blood pressure 59 mm[Hg] Olivia Mclaughlinmond Other [facility] Other 11-12-2021 17:50-0400 Respiratory rate 16 /min Olivia Mclaughlinmond Other [employer] Other 11-12-2021 17:50-0400 SaO2% (BldA) [Mass fraction] 98 % Olivia Mclaughlinmond Other [facility] Other 11-12-2021 17:50-0400 Systolic blood pressure 130 mm[Hg] Olivia Mclaughlinmond Other [employer] Other Encounters Encounter Date Encounter Type Care Provider Facility Start: 01-04-2024 End: 01-04-2024 ambulatory EUGENIO H TIMMIS Not Available Start: 09-01-2023 End: 09-01-2023 ambulatory EUGENIO H TIMMIS Not Available Start: 06-14-2023 End: 06-14-2023 ambulatory Sarah Sargent Other [employer] Other Start: 06-14-2023 Office outpatient vi sit 25 minutes Sarah Sargent [facility] Start: 10-01-2022 End: 10-02-[address] LUI GAMINO . Facility:[facility] Start: 09-10-2022 End: 09-11-2022 [facility] Start: 09-10-2022 End: 09-10-2022 Patient encounter procedure Lui GAMINO [facility] Start: 08-06-2022 ambulatory Lui GAMINO Facility: [facility] Start: 06-23-[address] LUI GAMINO . Facil ity:[facility] Start: 05-15-2022 End: 05-16-2022 ambulatory [facility] Start: 04-28-2022 End: 04-29-[address] ARETHA BREWSTER . Facility:[facility] Start: 04-23-2022 End: 04-24-[address] ARETHA BREWSTER . Facility:[facility] Start: 04-10-2022 End: 04-11-[address] ARETHA BREWSTER . Facility:[facility] Start: 03-24-2022 End: 03-24-2022 ambulatory JESSICA MUKHERJEE . Facility:[facility] Start: 01-14-2022 Encounter for genera l adult medical examination without abnormal findings DR ARETHA BREWSTER . [facility] Start: 01-08-2022 End: 01-09-[address] ARETHA BREWSTER . Facility:[facility] Start: 01-08-2022 End: 01-09-2022 Encounter for general adult medical examination without abnormal findings DR ARETHA BREWSTER . Facility:[facility] Start: 11-12-2021 End: 11-12-2021 ambulatory Olivia Dean Other [employer] Other Start: 11-12-2021 Office outpatient vi sit 15 minutes Olivia Dean [facility] Procedures Date Procedure Procedure Detail Performing Clinician Arthroscopy of knee Lui GAMINO Colonoscopy Lui NILL Colonoscopy Lui NILL Dilatation of esophageal stricture Lui NILL Esophagogastroduodenoscopy Neeta BERNSTEINL Esophagogastroduodenoscopy Neeta otoole NILL Ligation of fallopian tube Neeta ichsunitha NILL Reduction mammoplasty Mei davis NILL Repair of hip Lui NILL Immunizations Immunization Date Immunization Notes Care Provider Fa cili 04-15-2022 influenza virus vaccine, unspecified formulation Lui BERNSTEINL [facility] 04-14-2022 SARS-CoV-2 (COVID-19 ) mRNAMUL.ORD![id number] Lui NILL [facility] 02-10-2022 SARS-CoV-2 mRNA (npowjhihncu-swvb-eguda se) vaccine Lui NILL [facility] 08-26-2021 SARS-CoV-2 mRNA (cpnafltqgup-tdks-lirbx se) vaccine Lui NILL [facility] 02-25-2021 SARS-CoV-2 (COVID-19 ) mRNA BNT-162b2 vax Lui NILL [facility] 02-04-2021 SARS-CoV-2 (COVID-19 ) mRNA BNT-162b2 vax Lui NILL [facility] Payers Date Payer Category Payer Medicare [id number] 1955 Unknown [id number] 2.16.84 [id number] 1955 Unknown [id number] 2.16.84 [id number] 1955 Unknown [id number] 2.16.84 [id number] 1955 Unknown [id number] 2.16.84 0.1.151120.3.579.2.593 1955 Unknown [id number] 2.16.84 0.1.898621.3.579.2.593 1955 Unknown [id number] 2.16.84 0.1.016116.3.579.2.593 1955 Unknown [id number] 2.16.84 0.1.668190.3.579.2.593 1955 Unknown [id number] 2.16.8 40.1.474705.3.579.2.727 1955 Unknown [id number] 2.16.8 40.1.902461.3.579.2.727 1955 Unknown [id number] 2.16.84 0.1.147983.3.579.2.1259 1955 Unknown [id number] 2.16.84 0.1.161071.3.579.2.1259 Private Health Insurance [id number] Social History Date Type Detail Facility Sex Assigned At [facility] Start: 09-10-2022 Tobacco smoking status Ex-smoker (fi nding) [facility] Tobacco smoking status Never [facility] Functional Status Date Assessment Result Facility 09-10-2022 Functional Status N/A [facility] Clinical Notes 11-12-2021 to 06-14-2023 Note Date [...] previous rx of steroids. Use rx of [place] as directed. Discussed importance of adequate hydration [...] plan. Patient sent home in stable condition. [employer] Other 04-19-2023 NoteOPERATIVE NOTE OPERATION DATE: 10/01/2022 ADDENDUM: Please add to the operative report - Follow up screening colonoscopy should be in 10 years.[id number] NoteOPERATIVE NOTE OPERATION DATE: 10/01/2022 PREOPERATIVE DIAGNOSIS: [...] in good condition. CC: Aretha Brewster M.D.[id number] NoteChief Complaint consultation for screening colonoscopy HPI [...] and Sister. Immunizations Vaccin (more content not included)...[facility]Result Comment: Electronically Signed By: Lui GAMINO MD\Date and Time Signed: 09/10/22 16:09 [id number] NoteOrthopaedic Surgery Outpatient Visit Note Encounter Date: [...] incisional issues. Follow Up: No follow-ups on file.[facility]05-31-2022 Evaluation note* Encounter Date Diagnosis Assessment [...] nonvenomous arthropods, initial encounter (ICD-10 - W57.XXXA) [employer] Other Evaluation + Plan note No data available for this section [facility] History general Narrative - Reported* Type Description Date Medical History arthritis Surgical History pyloniadal cyst Surgical History both knee Surgical History breast reduction Surgical History tubal ligation Surgical History Total hip replacement Hospitalization History see above surg hx [employer] Other Hispjai general Narrative - Reported* Type Description Date Medical History arthritis Medical History GERD Surgical History pyloniadal cyst Surgical History both knee Surgical History breast reduction Surgical History tubal ligation Surgical History Total hip replacement Hospitalization History see above surg hx [employer] Other Hospital Discharge instructions No data available for this section [facility] Progress note No data available for this section [facility] Summary Purpose Family History No Family History Records FoundNo Family History Records FoundNo Family History Records FoundNo Family History Records FoundNo Family History Records Found Advance Directives No Advanced Directives Records FoundNo Advanced Directives Records FoundNo Advanced Directives Records FoundNo Advanced Directives Records FoundNo Advanced Directives Records Found Additional Source Comments INFORMATION SOURCE (unrecogn ized section and content) DATE CREATED AUTHOR 10/25/2021 [facility] DATE CREATED AUTHOR AUTHOR'S ORGANIZ ATION 05/17/2022 [facility] DATE CREATED AUTHOR AUTHOR'S ORGANIZ ATION 10/10/2022 [facility] DATE CREATED AUTHOR AUTHOR'S ORGANIZ ATION 10/10/2022 [facility] DATE CREATED AUTHOR AUTHOR'S ORGANIZ ATION 01/06/2024 [facility] Special[facility] EPIC REASON FOR VISIT (unrecogniz ed section and content) LEFT LEG SPIDER BITE, GOT BI T YESTERDAY AND IS GETTING WORSEHEAD COLD , HEADACHE, COUGH Patient Care team informatio n (unrecognized section and content) Personnel Name: Aretha Brewster MD Address: Address: [address] [place] [address] FOR RECORDS PERTAINING TO PATIENTS WHO ARE [...] BE BASED ON THE PRIMARY CLINICAL RECORDS. [facility] [employer] [facility]. provides no warranty or guarantee of the accuracy or completeness of information in this document.
--- NOTE | 2024-01-11 13:18 | CT_ITS ---
The [address] [address] Patient Name: MERCEDES EAGLE MRN: [id number] date: 1955 Sex: F Assigned Patient Location: CT Current Patient Location: Accession/Order Number: [id number] Exam Date: 01/11/2024 13:24 Report Date: 01/12/2024 10:57 At the request of: EUGENIO GARCIA Procedure: CT soft tissue neck w con CT soft tissue neck w con, 01/11/2024 1:24 PM EDT INDICATION: sialoadenitis (K11.20) COMPARISON: Prior CT of the neck dated 08/15/2023 TECHNIQUE: CT imaging of the neck were acquired with contrast. Supplemental 2D reformatted images were generated and reviewed as needed. Dose reduction techniques were achieved by using automated exposure control and/or adjustment of mA and/or kV according to patient size and/or use of iterative reconstruction technique. FINDINGS: The sensitivity of study has been decreased due to streak artifacts from dental fillings. No abnormality of the base of skull is noted. The nasopharynx, oropharynx, hypopharynx and oral cavity are unremarkable. There is mild enlargement of the left submandibular gland with adjacent fatty stranding suggesting of the mild sialoadenitis. No sialolithiasis is noted. The parotids, right submandibular gland are unremarkable. The larynx is unremarkable. No abnormality of paraglottic fat is noted. There is no lymph node enlargement by size criteria. No retropharyngeal lymph node is noted. The thyroid gland is homogeneous. The visualized portions of lungs are unremarkable. There is no suspicious osteolytic or osteoblastic lesion. There are multilevel degenerative changes of cervical spine. CT/CT soft tissue neck w con IMPRESSION: Mild left submandibular sialoadenitis. No evidence of sialolithiasis. Electronically authenticated by: RUIZ MANDEL Date: 01/12/2024 10:57
--- OUTSIDE RECORDS SUMMARY | 2024-01-11 13:30 | XMS_ITS | CCD ---
Author Organization [facility] Care Team Providers Care Foreclosure Clerk Name Role Phone Olivia Dean Unavailable TIMMY TINSLEY Referring Unavailable TIMMY TINSLEY Attending Unavailable Aretha Brewster Primary Care Physician [phone] JESSICA PACHECO Attending Unavailable YAZ ., JESSICA Admitting Unavailable ZIEBER, DR ULISES Pineda Consulting Unavailable HOY ., DR CARIAS Primary Care Unavailable HAIDER .MAGNO Consulting Unavailable NILL ., DR POE Admitting Unavailable HOY ., DR CARIAS Primary Care Unavailable NILL ., DR POE Consulting Unavailable NILL ., DR POE Attending Unavailable SHARP, NKAIA Consulting Unavailable LILIAN II, AVELINO Consulting Unavailable [...] [erythromycin] Drug Allergy GI upset General Surgery [place] (5 sources) Latex; Translations: [LATEX] Propensity to adverse reactions 05-15-20 Inflammatory dermatosis (disorder) [facility] Repository (2 sources) Penicillin G Drug Allergy anaphylaxis [facility] Other (3 sources) Penicillins; Translations: [PENICILLINS] Propensity to adverse reactions to drug (disorder) 05-15-20 Anaphylaxis (disorder) [facility] Repository (2 sources) ERYTHROMYCIN BASE; Translations: [ERYTHROMYCIN BASE] Propensity to adverse reactions to drug (disorder) 05-15-20 [facility] Repository (1 source) natural latex rubber Drug allergy (disorder) 09-23-19 23 [facility] Repository (1 source) Penicillin Drug Allergy [facility] Repository Medications Current Medications Medication Drug [...] 1.5 mg/ml oral solution (1 source) Uncompetitive W-wjwmbz-P-aspartat e 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, Sigma-1 Agonist Start: 06-14-2023 take 10 mL by mouth every eight hours [place] DM 7.5-7.5 MG/5ML 10 mL Orally every [...] Osteoarthritis 08-29-2022 Chronic Other aftercare (1 source) 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; 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] Onset: 10-02-2022 Episodic [...] 03-24-2022 Episodic Other aftercare (1 source) 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; Translations: [[facility] CURRENT DRUG THERAPY] Onset: 01-14-2022 Episodic Other bone disease and musculoskeletal deformities (1 source) Other specified disorders of bone density and structure, unspecified site; Translations: [[facility] D/O BONE DEN STRUCT UNS SITE] [...] (COVID-19) RNA VIVEK+probe Ql (Unsp spec) Negative [facility] Other COVID/FLU/RSV RT-PCR Negative [facility] [employer] Other COVID/FLU/RSV RT-PCR Positive [facility] Other Outside Colonoscopyon 2022 Outside Colonoscopy [id number] 0#1.00CD:127 [facility] Reminderson 10-02-2022 Reminders - From: Kisha Samuel LPN To: N - Clinical; Sent: 10/02/2022 08:43:18 EDT Show up: 08/31/2032 07:00:00 EDT Subject: colonoscopy recall Due Date/Time: 10/01/2032 07:00:00 EDT Reminder/Recall Patient is due for screening colonoscopy 10/01/2032. [facility] Consent for Procedure/Surger yon 09-11-2022 Consent for Procedure/Surgery [id number] #1.00CD:127 [facility] Facesheeton 09-11-2022 Facesheet [id number] #1.00CD:127 [facility] Pre-Certification Formon Pre-Certification Form [id number] 1#1.00CD:127 [facility] Ambulatory Visit Summaryon 0 09-10-2022 Ambulatory Visit [...] reflux disease) Osteoarthritis Seasonal allergic rhinitis Normal [facility] Physician Referralon 023 Physician Referral [id number] #1.00CD:[address] [facility] Follow-Upon 05-15-2022 Follow-Up [id number] Brie Eagle 1955 F Date Provider Department Center 05/15/2022 Piedad-TIMMY TINSLEY MP ORTHO MPORTHO Family History Problem Relation Age of Onset Diabetes Mother Heart disease Mother Arthritis Mother No Known Problems Father Family Status - Relation Status Age at Mother Father Level of Service:45283 [place] OFFICE/OUTPATIENT ESTABLISHED LOW [facility] 20-29 MIN Reason for Visit and Comments: Follow-up [604750] - Yearly follow up Normal [facility] XR DEXA BONE DENSITYon 04-28 XR [...] by: STEPHANIE RAYA Date: 2022-04-28 17:04 Normal [facility] MG MAMM SCREEN 3D ARCELIA CADon 04-23-2022 MG MAMM SCREEN 3D ARCELIA CAD Patient: BRIE EAGLE Exam Date: 04/23/2022 : 1955 Gender:F Ordering : DR ARETHA BREWSTER . Admission #: [id number] Family : Order #: [id number] CLICK HERE TO VIEW EXAM RADIOLOGY REPORT PROCEDURE: MAMMOGRAM SCREENING 3D BILATERAL CAD COMPARISON: MG MAMM SCREEN 3D ARCELIA CAD, 04/17/2021. INDICATIONS: Screening mammography Calculator Name NCI Breast Cancer Risk Assessment Tool 5 Year Breast Cancer Risk Not Reported. Lifetime Breast Cancer Risk Not Reported. Personal Breast Cancer No Personal Ovarian Cancer No Treatments None Family Cancers None LOCATION: [facility] BREAST COMPOSITION: Scattered areas fibroglandular density. FINDINGS: [...] 04/23/2022 at 13:10 Normal [facility] NM STRESS/REST MULTIon 04-10 NM STRESS/REST MULTI Patient: BRIE EAGLE Exam Date: 04/10/2022 : 1955 Gender:F Ordering : DR ARETHA BREWSTER . Admission #: [id number] Family : Order #: [id number] CLICK HERE TO VIEW EXAM RADIOLOGY REPORT [...] 04/10/2022 at 13:53 Normal [facility] AMYLASEon 03-24-2022 Amylase [Catalytic activity/Vol] 51 U/L Normal 25-115 [facility] Comment on above: Performed By: #### A MY, LIPA, CMADM, HSTROPN #### [facility] [address] [address] [address] Christos Richardson CARDIAC MONA ADMITon 022 CK [Catalytic activity/Vol] 67 U/L Normal 26-192 [facility] Comment on above: Performed By: #### A MY, LIPA, CMADM, HSTROPN #### [facility] [address] [address] [address] Christos Richardson CK.MB [Mass/Vol] 0.93 ng/mL Normal <=3.60 [facility] Comment on above: Performed By: #### A MY, LIPA, CMADM, HSTROPN #### [facility] [address] [address] [address] Christos Richardson GAYATHRI 32 ng/mL Normal 9-82 [facility] Comment on above: Performed By: #### A MY, LIPA, CMADM, HSTROPN #### [facility] [address] [address] [address] Christos Richardson CBC AUTO DIFFon 03-24-2022 BASO # 0.1 103/ul Normal 0.0-0.1 [facility] Comment on above: Performed By: #### C BC ####[facility] [address] [address]Dr. Christos Richardson Basophils/100 WBC (Bld) 0.7 % Normal 0.2-2.0 [facility] Comment on above: Performed By: #### C BC ####[facility] [address] [address]Dr. Christos Richardson EO # 0.1 103/ul Normal 0.0-0.7 [facility] Comment on above: Performed By: #### C BC ####[facility] [address] [address]Dr. Christos Richardson Eosinophils/100 WBC (Bld) 0.8 % Critically low 0.9-7.0 [facility] Comment on above: Performed By: #### C BC ####[facility] [address] [place], [place] [address]Dr. Christos Richardson Erythrocyte distribution width (RBC) [Ratio] 13.4 % Normal 11.0-15.0 [facility] Comment on above: Performed By: #### C BC ####[facility] [address] [place], [place] [address]Dr. Christos Richardson Hematocrit (Bld) [Volume fraction] 40.9 % Normal 36.0-48.0 [facility] Comment on above: Performed By: #### C BC ####[facility] [address] [place], [place] [address]Dr. Christos Richardson Hemoglobin (Bld) [Mass/Vol] 13.3 g/dL Normal 12.0-16.0 [facility] Comment on above: Performed By: #### C BC ####[facility] [address] [place], [place] [address]Dr. Christos Richardson IG # 0.02 10e3/ul Normal 0.00-0.03 [facility] Comment on above: Performed By: #### C BC ####[facility] [address] [place], [place] [address]Dr. Christos Richardson IG % 0.3 % Normal 0.0-0.5 [facility] Comment on above: Performed By: #### C BC ####[facility] [address] [place], [place] [address]Dr. Devoramarissa Richardson LYMPH # 2.3 103/ul Normal 1.2-3.8 [facility] Comment on above: Performed By: #### C BC ####[facility] [address] [id number]. Christos Dylan Lymphocytes/100 WBC (Bld) 32.6 % Normal 20.5-60.0 [facility] Comment on above: Performed By: #### C BC ####[facility] [address] [address]Dr. Christos Richardson MANUAL DIFF REQ NO Normal [facility] Comment on above: Performed By: #### C BC ####[facility] [address] [id number]. Christos Dylan MCH (RBC) [Entitic mass] 29.2 pg Normal 26.7-34.0 [facility] Comment on above: Performed By: #### C BC ####[facility] [address] [place], [place] [address]Dr. Devoramarissa Richardson MCHC (RBC) [Mass/Vol] 32.5 g/dL Normal 29.9-35.2 [facility] Comment on above: Performed By: #### C BC ####[facility] [address] [place], [place] [address]Dr. Christos Dylan MCV (RBC) [Entitic vol] 89.9 fL Normal 81.0-99.0 [facility] Comment on above: Performed By: #### C BC ####[facility] [address] [place], [place] [address]Dr. Christos Richardson MONO # 1.0 103/ul Critically high 0.3-0.8 [facility] Comment on above: Performed By: #### C BC ####[facility] [address] [place], [place] [address]Dr. Devoramarissa Richardson Monocytes/100 WBC (Bld) 14.2 % Critically high 1.7-12.0 [facility] Comment on above: Performed By: #### C BC ####[facility] [address] [place], [place] [address]Dr. Christos Richardson NEUT # 3.7 103/ul Normal 1.4-6.5 [facility] Comment on above: Performed By: #### C BC ####[facility] [address] [address]Dr. Christos Richardson Neutrophils/100 WBC (Bld) 51.4 % Normal 43.0-75.0 [facility] Comment on above: Performed By: #### C BC ####[facility] [address] [address]Dr. Christos Richardson Platelet mean volume (Bld) [Entitic vol] 9.7 fL Normal 9.5-13.5 [facility] Comment on above: Performed By: #### C BC ####[facility] [address] [address]Dr. Christos Richardson PLT 271 103/ul Normal 150-450 [facility] Comment on above: Performed By: #### C BC ####[facility] [address] [address]Dr. Christos Richardson RBC 4.55 106/ul Normal 4.20-5.40 [facility] Comment on above: Performed By: #### C BC ####[facility] [address] [address]Dr. Christos Richardson WBC 7.1 103/ul Normal 4.0-11.0 [facility] Comment on above: Performed By: #### C BC ####[facility] [address] [id number] Richardson LIPASEon 03-24-2022 Lipase [Catalytic activity/Vol] 104.0 U/L Normal 73.0-393.0 [facility] Comment on above: Performed By: #### A MY, LIPA, CMADM, HSTROPN #### [facility] [address] [place], [place] [address] Dr. Christos Richardson TROPONIN, HIGH SENSITIVITYon 03-24-2022 HSTROP 6.6 pg/mL Normal 4.0-51.3 [facility] Comment on above: Result Comment: CUT- OFF POINTS HAVE BEEN ESTABLISHED BASED ON THE FOURTH UNIVERSAL DEFINITIONS OF MYOCARDIAL INFARCTION. THE UPPER REFERENCE LIMIT (URL) OF TROPONIN, DEFINED THE 99TH PERCENTILE OF cTnI DISTRIBUTION IN A REFERENCE POPULATION, HAS BEEN CONFIRMED THE DECISION THRESHOLD FOR [place] DIAGNOSIS. Performed By: #### H STROPN ####[facility] [address] [place], [place] [address]IhDr. Christos Richardson HSTROP 6.3 pg/mL Normal 4.0-51.3 [facility] Comment on above: Result Comment: CUT- OFF POINTS HAVE BEEN ESTABLISHED BASED ON THE FOURTH UNIVERSAL DEFINITIONS OF MYOCARDIAL INFARCTION. THE UPPER REFERENCE LIMIT (URL) OF TROPONIN, DEFINED THE 99TH PERCENTILE OF cTnI DISTRIBUTION IN A REFERENCE POPULATION, HAS BEEN CONFIRMED THE DECISION THRESHOLD FOR [place] DIAGNOSIS. Performed By: #### A MY, LIPA, CMADM, HSTROPN #### [facility] [address] [address] [address] Christos Richardson XR CHEST 1 Von [...] Date: 2022-03-24 13:53 Normal [facility] INSULINon 01-09-2022 Insulin 10.4 uIU/mL Normal 2.6-24.9 [facility] Comment on above: Performed By: #### I NSULIN #### [facility] [address] [place], [place] [address] Dr. Christos Richardson CBC AUTO DIFFon 01-08-2022 BASO # 0.1 103/ul Normal 0.0-0.1 [facility] Comment on above: Performed By: #### C BC #### [facility] [address] [place], [place] [address] Dr. Christos Richardson Basophils/100 WBC (Bld) 0.8 % Normal 0.2-2.0 [facility] Comment on above: Performed By: #### C BC #### [facility] [address] [place] [address] Dr. Christos Richardson EO # 0.1 103/ul Normal 0.0-0.7 [facility] Comment on above: Performed By: #### C BC #### [facility] [address] [place] [address] Dr. Christos Richardson Eosinophils/100 WBC (Bld) 1.5 % Normal 0.9-7.0 [facility] Comment on above: Performed By: #### C BC #### [facility] [address] [place] [address] Dr. Christos Richardson Erythrocyte distribution width (RBC) [Ratio] 13.6 % Normal 11.0-15.0 [facility] Comment on above: Performed By: #### C BC #### [facility] [address] [place] [address] Dr. Christos Richardson Hematocrit (Bld) [Volume fraction] 40.4 % Normal 36.0-48.0 [facility] Comment on above: Performed By: #### C BC #### [facility] [address] [place] [address] Dr. Christos Richardson Hemoglobin (Bld) [Mass/Vol] 12.9 g/dL Normal 12.0-16.0 [facility] Comment on above: Performed By: #### C BC #### [facility] [address] [place] [address] Dr. Christos Richardson IG # 0.01 10e3/ul Normal 0.00-0.03 [facility] Comment on above: Performed By: #### C BC #### [facility] [address] [place] [address] Dr. Christos Richardson IG % 0.2 % Normal 0.0-0.5 [facility] Comment on above: Performed By: #### C BC #### [facility] [address] [place] [address] Dr. Christos Richardson LYMPH # 2.4 103/ul Normal 1.2-3.8 [facility] Comment on above: Performed By: #### C BC #### [facility] [address] [place] [address] Dr. Christos Richardson Lymphocytes/100 WBC (Bld) 39.7 % Normal 20.5-60.0 [facility] Comment on above: Performed By: #### C BC #### [facility] [address] [place] [address] Dr. Christos Richardson MANUAL DIFF REQ NO Normal [facility] Comment on above: Performed By: #### C BC #### [facility] [address] [place] [address] Dr. Christos Richardson MCH (RBC) [Entitic mass] 29.0 pg Normal 26.7-34.0 [facility] Comment on above: Performed By: #### C BC #### [facility] [address] [place] [address] Dr. Christos Richardson MCHC (RBC) [Mass/Vol] 31.9 g/dL Normal 29.9-35.2 [facility] Comment on above: Performed By: #### C BC #### [facility] [address] [place] [address] Dr. Christos Richardson MCV (RBC) [Entitic vol] 90.8 fL Normal 81.0-99.0 [facility] Comment on above: Performed By: #### C BC #### [facility] [address] [place] [address] Dr. Christos Richardson MONO # 0.8 103/ul Normal 0.3-0.8 [facility] Comment on above: Performed By: #### C BC #### [facility] [address] [place] [address] Dr. Christos Richardson Monocytes/100 WBC (Bld) 13.5 % Critically high 1.7-12.0 [facility] Comment on above: Performed By: #### C BC #### [facility] [address] [place] [address] Dr. Christos Richardson NEUT # 2.7 103/ul Normal 1.4-6.5 [facility] Comment on above: Performed By: #### C BC #### [facility] [address] [place] [address] Dr. Christos Richardson Neutrophils/100 WBC (Bld) 44.3 % Normal 43.0-75.0 [facility] Comment on above: Performed By: #### C BC #### [facility] [address] [address] [address] Christos Richardson Platelet mean volume (Bld) [Entitic vol] 10.4 fL Normal 9.5-13.5 [facility] Comment on above: Performed By: #### C BC #### [facility] [address] [address] [address] Christos Richardson PLT 287 103/ul Normal 150-450 [facility] Comment on above: Performed By: #### C BC #### [facility] [address] [place] [address] Dr. Christos Richardson RBC 4.45 106/ul Normal 4.20-5.40 [facility] Comment on above: Performed By: #### C BC #### [facility] [address] [address] [address] Christos Richardson WBC 6.1 103/ul Normal 4.0-11.0 [facility] Comment on above: Performed By: #### C BC #### [facility] [address] [place] [address] Dr. Christos Richardson FREE THYROXINE INDEX T7on FTI 2.00 Normal 1.30-4.50 [facility] Comment on above: Performed By: #### C MP, T7, LIPID, TSH ####[facility] [address] [id number]. Christos Richardson T3U 35.0 % Normal 30.0-39.0 [facility] Comment on above: Performed By: #### C MP, T7, LIPID, TSH ####[facility] [address] [id number]. Christos Richardson T4 [Mass/Vol] 5.70 ug/dL Normal 4.80-13.[address] [facility] Comment on above: Performed By: #### C MP, T7, LIPID, TSH ####[facility] [address] [address]Dr. Christos Richardson GLYCOHEMOGLOBIN A1Con 2021 ADA RECOMMENDATION SEE BELOW Normal [facility] Comment on above: Result Comment: ADA RECOMMENDED LIMIT 4.0 - 6.0 ADA THERAPEUTIC TARGET < 7.0 ACTION SUGGESTED > 7.0 Performed By: #### A 1C ####[facility] [address] [place], [place] [address]Dr. Christos Richardson Glucose [Mass/Vol] 114 mg/dL Normal [facility] Comment on above: Performed By: #### A 1C ####[facility] [address] [place], [place] [address]Dr. Christos Richardson HbA1c (Bld) [Mass fraction] 5.6 % Normal 4.5-6.2 [facility] Comment on above: Performed By: #### A 1C ####[facility] [address] [place], [place] [address]Dr. Christos Richardson IRONon 01-08-2022 Iron [Mass/Vol] 100.0 ug/dL Normal 50.0-170.0 [facility] Comment on above: Performed By: #### I BLANCO ####[facility] [address] [place], [place] [address]Dr. Christos Richardson LIPID PROFILEon 01-08-2022 CHOL-HDL RATIO NORM SEE BELOW Normal [facility] Comment on above: Result Comment: 3.3 - 4.4 LOW RISK 4.4 - 7.1 AVERAGE RISK 7.1 - 11.0 MODERATE RISK >11.0 HIGH RISK Performed By: #### C MP, T7, LIPID, TSH ####[facility] [address] [place], [place] [address]Dr. Christos Richardson Cholesterol [Mass/Vol] 187 mg/dL Normal <=200 [facility] Comment on above: Performed By: #### C MP, T7, LIPID, TSH ####[facility] [address] [address]Dr. Christos Richardson Cholesterol in HDL [Mass/Vol] 63 mg/dL Critically high 40-60 [facility] Comment on above: Performed By: #### C MP, T7, LIPID, TSH ####[facility] [address] [address]Dr. Christos Richardson Cholesterol in LDL [Mass/Vol] 110.8 mg/dL Normal [facility] Comment on above: Performed By: #### C MP, T7, LIPID, TSH ####[facility] [address] [address]Dr. Christos Richardson Cholesterol.total/Ch olesterol in HDL [Mass ratio] 3.0 {ratio} Normal [facility] Comment on above: Performed By: #### C MP, T7, LIPID, TSH ####[facility] [address] [address]Dr. Christos Richardson HDL NORMAL > or = 60 mg/dl - LOW CARDIOVASCULAR RISK <40 mg/dl - HIGH CARDIOVASCULAR RISK Normal [facility] Comment on above: Performed By: #### C MP, T7, LIPID, TSH ####[facility] [address] [address]Dr. Christos Richardson LDL CALC NORMAL SEE BELOW Normal [facility] Comment on above: Result Comment: <100 mg/dl OPTIMAL 100 - 129 mg/dl NEAR OR ABOVE OPTIMAL 130 - 159 mg/dl BORDERLINE HIGH 160 - 189 mg/dl HIGH >190 mg/dl VERY HIGH Performed By: #### C MP, T7, LIPID, TSH ####[facility] [address] [address]Dr. Christos Richardson Triglyceride [Mass/Vol] 66 mg/dL Normal <=150 [facility] Comment on above: Performed By: #### C MP, T7, LIPID, TSH ####[facility] [address] [address]Dr. Christos Richardson VLDL CALC 13.2 mg/dL Normal [facility] Comment on above: Performed By: #### C MP, T7, LIPID, TSH ####[facility] [address] [address]Dr. Christos Richardson PROF 14(COMP METB)on 022 Albumin [Mass/Vol] 3.4 g/dL Normal 3.4-5.0 [facility] Comment on above: Performed By: #### C MP, T7, LIPID, TSH ####[facility] [address] [address]Dr. Christos Richardson Albumin/Globulin [Mass ratio] 0.9 {ratio} Normal [facility] Comment on above: Performed By: #### C MP, T7, LIPID, TSH ####[facility] [address] [address]Dr. Christos Richardson ALP [Catalytic activity/Vol] 79 U/L Normal 46-116 [facility] Comment on above: Performed By: #### C MP, T7, LIPID, TSH ####[facility] [address] [address]Dr. Christos Richardson ALT [Catalytic activity/Vol] 22 U/L Normal 14-59 [facility] Comment on above: Performed By: #### C MP, T7, LIPID, TSH ####[facility] [address] [place], [place] [address]Dr. Christos Richardson Anion gap [Moles/Vol] 11.5 mmol/L Normal [facility] Comment on above: Performed By: #### C MP, T7, LIPID, TSH ####[facility] [address] [place], [place] [address]Dr. Devoramarissa Richardson AST [Catalytic activity/Vol] 16 U/L Normal 15-37 [facility] Comment on above: Performed By: #### C MP, T7, LIPID, TSH ####[facility] [address] [place], [place] [address]Dr. Christos Richardson Bilirubin [Mass/Vol] 0.3 mg/dL Normal 0.2-1.0 [facility] Comment on above: Performed By: #### C MP, T7, LIPID, TSH ####[facility] [address] [place], [place] [address]Dr. Christos Richardson Calcium [Mass/Vol] 9.1 mg/dL Normal 8.5-10.1 [facility] [facility] Comment on above: Performed By: #### C MP, T7, LIPID, TSH ####[facility] [address] [place], [place] [id number]. Christos Richardson Chloride [Moles/Vol] 106 mmol/L Normal 98-107 [facility] Comment on above: Performed By: #### C MP, T7, LIPID, TSH ####[facility] [address] [place] [address]Dr. Christos Richardson CO2 [Moles/Vol] 27.7 mmol/L Normal 21.0-32.0 [facility] Comment on above: Performed By: #### C MP, T7, LIPID, TSH ####[facility] [address] [place] [address]Dr. Christos Richardson Creatinine [Mass/Vol] 0.75 mg/dL Normal 0.55-1.02 [facility] Comment on above: Performed By: #### C MP, T7, LIPID, TSH ####[facility] [address] [place] [address]Dr. Christos Richardson EGFR-AF PARAGUAYAN >60 Normal >=60 [facility] Comment on above: Performed By: #### C MP, T7, LIPID, TSH ####[facility] [address] [place] [address]Dr. Christos Richardson EGFR-NON AF PARAGUAYAN >60 Normal >=60 [facility] Comment on above: Performed By: #### C MP, T7, LIPID, TSH ####[facility] [address] [place] [address]Dr. Christos Richardson Globulin (S) [Mass/Vol] 3.9 g/dL Normal [facility] Comment on above: Performed By: #### C MP, T7, LIPID, TSH ####[facility] [address] [place] [address]Dr. Christos Richardson Glucose [Mass/Vol] 95 mg/dL Normal 74-106 [facility] Comment on above: Performed By: #### C MP, T7, LIPID, TSH ####[facility] [address] [place] [address]Dr. Christos Richardson Potassium [Moles/Vol] 4.2 mmol/L Normal 3.5-5.1 [facility] Comment on above: Performed By: #### C MP, T7, LIPID, TSH ####[facility] [address] [place] [address]Dr. Christos Richardson Protein [Mass/Vol] 7.3 g/dL Normal 6.4-8.2 [facility] Comment on above: Performed By: #### C MP, T7, LIPID, TSH ####[facility] [address] [place] [address]Dr. Christos Richardson Sodium [Moles/Vol] 141 mmol/L Normal 136-145 [facility] Comment on above: Performed By: #### C MP, T7, LIPID, TSH ####[facility] [address] [place] [address]Dr. Christos Richardson Urea nitrogen [Mass/Vol] 15.0 mg/dL Normal 7.0-18.0 [facility] Comment on above: Performed By: #### C MP, T7, LIPID, TSH ####[facility] [address] [place] [address]Dr. Christos Richardson Urea nitrogen/Creatinine [Mass ratio] 20.0 mg/mg Normal [facility] Comment on above: Performed By: #### C MP, T7, LIPID, TSH ####[facility] [address] [place] [address]Dr. Christos Richardson TSHon 01-08-2022 TSH 3.880 uIU/mL Critically high 0.358-3.740 [facility] Comment on above: Performed By: #### C MP, T7, LIPID, TSH ####[facility] [address] [place] [address]Dr. Christos Richardson HIP LEFT 1 OR 2 VWS WITH PEL VISon 05-29-2021 HIP LEFT 1 OR 2 VWS WITH PELVIS [facility] Department of Radiology [address] [place] [id number] Patient Name: BRIE EAGLE : 1955 [...] prosthesis. Electronically signed: Eder Crowder. Transcribed by: [email or web address], User Resident: EDER CROWDER Electronically Signed by: EDER CROWDER @ 05/30/2021 12:27 PM I personally read this/these film(s) with this resident Normal [facility] Comment on above: Order Comment: evalu ate Vital Signs Date Time Vital Sign Value Performing Clinician Facility 06-14-2023 09:30-0500 Body height 162.56 cm Sarah Sargent Other [facility] Other 06-14-2023 09:30-0500 Body mass index (BMI) [Ratio] 30.65 kg/m2 Sarah Sargent Other [facility] Other 06-14-2023 09:30-0500 Body temperature 98.8 [degF] Sarah Sargent Other [facility] Other 06-14-2023 09:30-0500 Body weight 81.01 kg Sarah Sargent Other [facility] Other 06-14-2023 09:30-0500 Diastolic blood pressure 67 mm[Hg] Sarah Sargent Other [facility] Other 06-14-2023 09:30-0500 Respiratory rate 16 /min Sarah Sargent Other [facility] Other 06-14-2023 09:30-0500 SaO2% (BldA) [Mass fraction] 96 % Sarah Sargent Other [facility] Other 06-14-2023 09:30-0500 Systolic blood pressure 129 mm[Hg] Sarah Sargent Other [facility] Other 09-10-2022 15:17-0400 Blood Pressure Location Lui BERNSTEINL [facility] [place] 09-10-2022 15:17-0400 Diastolic blood pressure 64 mm[Hg] Lui BERNSTEINL [facility] [place] 09-10-2022 15:17-0400 Heart rate 72 /min Lui BERNSTEINL [facility] [place] 09-10-2022 15:17-0400 Respiratory rate 16 /min Lui BERNSTEINL [facility] [place] 09-10-2022 15:17-0400 Systolic blood pressure 138 mm[Hg] Lui BERNSTEINL [facility] [place] 11-12-2021 17:50-0400 Body height 162.56 cm Olivia Dean Other [facility] Other 11-12-2021 17:50-0400 Body mass index (BMI) [Ratio] 27.46 kg/m2 Olivia Mclaughlinmond Other [facility] Other 11-12-2021 17:50-0400 Body temperature 97.8 [degF] Olivia Mclaughlinmond Other [facility] Other 11-12-2021 17:50-0400 Body weight 72.58 kg Olivia Mclaughlinmond Other [facility] Other 11-12-2021 17:50-0400 Diastolic blood pressure 59 mm[Hg] Olivia Mclaughlinmond Other [facility] Other 11-12-2021 17:50-0400 Respiratory rate 16 /min Olivia Mclaughlinmond Other [facility] Other 11-12-2021 17:50-0400 SaO2% (BldA) [Mass fraction] 98 % Olivia Mclaughlinmond Other [facility] Other 11-12-2021 17:50-0400 Systolic blood pressure 130 mm[Hg] Olivia Mclaughlinmond Other [facility] Other Encounters Encounter Date Encounter Type Care Provider Facility Start: 01-04-2024 End: 01-04-2024 ambulatory EUGENIO H TIMMIS Not Available Start: 09-01-2023 End: 09-01-2023 ambulatory EUGENIO H TIMMIS Not Available Start: 06-14-2023 End: 06-14-2023 ambulatory Sarah Sargent Other [facility] Other Start: 06-14-2023 Office outpatient vi sit 25 minutes Sarah Sargent [facility] Start: 10-01-2022 End: 10-02-[address] LUI GAMINO . Facility:[facility] Start: 09-10-2022 End: 09-11-2022 [facility] Start: 09-10-2022 End: 09-10-2022 Patient encounter procedure Lui GAMINO [facility] Start: 08-06-2022 ambulatory Lui GAMINO Facility: [facility] [place] Start: 06-23-[address] LUI GAMINO . Facil ity:[facility] Start: 05-15-2022 End: 05-16-2022 ambulatory TIMMY D. [facility] Start: 04-28-2022 End: 04-29-[address] ARETHA BREWSTER . Facility:[facility] Start: 04-23-2022 End: 04-24-[address] ARETHA BREWSTER . Facility:[facility] Start: 04-10-2022 End: 04-11-[address] ARETHA BREWSTER . Facility:[facility] Start: 03-24-2022 End: 03-24-2022 ambulatory JESSICA MUKHERJEE . Facility:[facility] Start: 01-14-2022 Encounter for genera l adult medical examination without abnormal findings DR ARETHA BREWSTER . [facility] Start: 01-08-2022 End: 01-09-[address] ARETHA BREWSTER . Facility:[facility] Start: 01-08-2022 End: 01-09-2022 Encounter for general adult medical examination without abnormal findings DR ARETHA BREWSTER . Facility:[facility] Start: 11-12-2021 End: 11-12-2021 ambulatory Olivia Dean Other [facility] Other Start: 11-12-2021 Office outpatient vi sit [...] vaccine, unspecified formulation Lui BERNSTEINL [facility] [place] 04-14-2022 SARS-CoV-2 (COVID-19 ) mRNAMUL.[id number] Lui NILL [facility] [place] 02-10-2022 SARS-CoV-2 mRNA (rwbbiofbzzl-uqxi-zlkbs se) vaccine Lui NILL [facility] [place] 08-26-2021 SARS-CoV-2 mRNA (tjcjlmnsbpr-xnsq-chydg se) vaccine Lui NILL [facility] [place] 02-25-2021 SARS-CoV-2 (COVID-19 ) mRNA BNT-162b2 vax Lui NILL [facility] [place] 02-04-2021 SARS-CoV-2 (COVID-19 ) mRNA BNT-162b2 vax Lui NILL [facility] [place] Payers Date Payer Category Payer Medicare [id number] 1955 Unknown [id number] 2.16.84 [id number] 1955 Unknown [id number] 2.16.84 [id number] 1955 Unknown [id number] 2.16.84 [id number] 1955 Unknown [id number] 2.16.84 [id number] 1955 Unknown [id number] 2.16.84 0.1.756501.3.579.2.593 1955 Unknown [id number] 2.16.84 0.1.618646.3.579.2.593 1955 Unknown [id number] 2.16.84 0.1.152826.3.579.2.593 1955 Unknown [id number] 2.16.8 [id number] 1955 Unknown [id number] 2.16.8 40.1.860864.3.579.2.727 1955 Unknown [id number] 2.16.84 [id number] 1955 Unknown [id number] 2.16.84 [id number] Private Health Insurance [id number] Social History Date Type Detail Facility Sex Assigned At [facility] Start: 09-10-2022 Tobacco smoking status Ex-smoker (fi nding) [facility] Tobacco smoking status Never [facility] Functional Status Date Assessment Result Facility 09-10-2022 Functional Status N/A [facility] [place] Clinical Notes 11-12-2021 to 06-14-2023 Note Date [...] previous rx of steroids. Use rx of [place] as directed. Discussed importance of adequate hydration [...] plan. Patient sent home in stable condition. [facility] Other 04-19-2023 NoteOPERATIVE NOTE OPERATION DATE: 10/01/2022 ADDENDUM: Please add to the operative report - Follow up screening colonoscopy should be in 10 years.[id number] NoteOPERATIVE NOTE OPERATION DATE: 10/01/2022 PREOPERATIVE DIAGNOSIS: [...] condition. CC: Aretha Brewster M.D.[facility] [id number] NoteChief Complaint consultation for screening colonoscopy HPI [...] and Sister. Immunizations Vaccin (more content not included)...[facility]:Result Comment: Electronically Signed By: Lui GAMINO MD\Date and Time Signed: 09/10/22 16:09 [id number] NoteOrthopaedic Surgery Outpatient Visit Note Encounter Date: [...] incisional issues. Follow Up: No follow-ups on file.[facility]05-31-2022 Evaluation note* Encounter Date Diagnosis Assessment [...] nonvenomous arthropods, initial encounter (ICD-10 - W57.XXXA) [facility] Other Evaluation + Plan note No data available for this section General Surgery [place] History general Narrative - Reported* Type Description Date Medical History arthritis Surgical History pyloniadal cyst Surgical History both knee Surgical History breast reduction Surgical History tubal ligation Surgical History Total hip replacement Hospitalization History see above surg hx [facility] Other [facility] general Narrative - Reported* Type Description Date Medical History arthritis Medical History GERD Surgical History pyloniadal cyst Surgical History both knee Surgical History breast reduction Surgical History tubal ligation Surgical History Total hip replacement Hospitalization History see above surg hx [facility] Other Hospital Discharge instructions No data available for this section [facility] [place] Progress note No data available for this section [facility] [place] Summary Purpose Family History No Family History Records FoundNo Family History Records FoundNo Family History Records FoundNo Family History Records FoundNo Family History Records Found Advance Directives No Advanced Directives Records FoundNo Advanced Directives Records FoundNo Advanced Directives Records FoundNo Advanced Directives Records FoundNo Advanced Directives Records Found Additional Source Comments INFORMATION SOURCE (unrecogn ized section and content) DATE CREATED AUTHOR 10/25/2021 [facility] DATE CREATED AUTHOR AUTHOR'S ORGANIZ ATION 05/17/2022 [facility] DATE CREATED AUTHOR AUTHOR'S ORGANIZ ATION 10/10/2022 [facility] DATE CREATED AUTHOR AUTHOR'S ORGANIZ ATION 10/10/2022 [facility] DATE CREATED AUTHOR AUTHOR'S ORGANIZ ATION 01/06/2024 [facility] EPIC REASON FOR VISIT (unrecogniz ed section and content) LEFT LEG SPIDER BITE, GOT BI T YESTERDAY AND IS GETTING WORSEHEAD COLD , HEADACHE, COUGH Patient Care team informatio n (unrecognized section and content) Personnel Name: Aretha Brewster MD Address: Address: [address] [place] [address] FOR RECORDS PERTAINING TO PATIENTS WHO ARE [...] BE BASED ON THE PRIMARY CLINICAL RECORDS. [facility] [employer] [facility]. provides no warranty or guarantee of the accuracy or completeness of information in this document.
== END 2024-01-11 13:15 | disposition home or self-care (01) ==
LOC: CT 13:15
PROVIDERS: PCP Family Medicine; Visit Provider Otolaryngology
DX: K11.20 Sialoadenitis, unspecified (principal); R22.1 Localized swelling, mass and lump, neck
CPT/HCPCS: 70491; Q9967

== ENCOUNTER 2024-03-11 08:47 | Outpatient (OUT) | payer MEDICARE, SELFPAY ==
--- NOTE | 2024-03-11 | XR_ITS ---
The [address] [address] Patient Name: MERCEDES EAGLE MRN: [id number] date: 1955 Sex: F Assigned Patient Location: [facility] Current Patient Location: Accession/Order Number: [id number] Exam Date: 03/11/2024 08:57 Report Date: 03/12/2024 05:29 At the request of: GISELE ANTONY Procedure: XR chest 2V EXAMINATION: XR chest 2V HISTORY: lymphadenopathy/sialoadenitis COMPARISON: No relevant comparison available. FINDINGS: LUNGS: Thin curvilinear stranding opacity within lateral left lung base. Right lung is clear. VASCULATURE: No increased pulmonary vasculature. PLEURA: No pneumothorax, effusion, or pleural thickening. CARDIAC: No cardiomegaly or cardiac silhouette abnormality. MEDIASTINUM: No visible mass or adenopathy. BONES: No fracture or visible bone lesion. OTHER: Negative. XR/XR chest 2V IMPRESSION: 1. Trace amount of lingular atelectasis versus infiltrates. Electronically authenticated by: NOÉ ALEXANDRA Date: 03/12/2024 05:29
--- OUTSIDE RECORDS SUMMARY | 2024-03-11 09:01 | XMS_ITS | CCD ---
Author Organization [facility] Team Providers Care Computational Geneticist Name Role Phone Olivia Dean Unavailable TIMMY [...] DR CARIAS Consulting Unavailable HOY ., DR CRAIAS Attending Unavailable ELVER, DR STEPHANIE Olivera Consulting Unavailable HOY ., DR CARIAS Primary Care Unavailable HOY ., DR CARIAS Admitting Unavailable HOY ., DR CARIAS Consulting Unavailable HOY ., DR CARIAS Attending Unavailable ELVER, DR STEPHANIE Olivera Consulting Unavailable DAYL, Lui Pineda Attending Unavailable NILLLui Attending Unavailable Sarah Sargent Unavailable EUGENIO GARCIA Attending Unavailable EUGENIO GARCIA Attending Unavailable EUGENIO GARCIA Attending Unavailable ARETHA BREWSTER Referring Unavailable MD Aretha Brewster Primary Care Provider [phone] MD Gordy Matthew Attending Provider [phone] Allergies Allergy Classification Reported Allergen(s) Allergy Type Date of Onset Reaction(s) Facility (4 sources) Erythromycin; Translations: [erythromycin] Drug Allergy GI upset [facility] [place] (6 sources) Latex; Translations: [LATEX] Propensity to adverse reactions 2 Inflammatory dermatosis (disorder) [facility] (3 sources) Penicillin G Drug Allergy 3 anaphylaxis [facility] (3 sources) Penicillins; Translations: [PENICILLINS] Propensity to adverse reactions to drug (disorder) 2 Anaphylaxis (disorder) [facility] (3 sources) ERYTHROMYCIN BASE; Translations: [ERYTHROMYCIN BASE] Propensity to adverse reactions to drug (disorder) 2 GI upset [facility] (1 source) natural latex rubber Drug allergy (disorder) 3 [facility] (1 source) Penicillin Drug Allergy [facility] Medications Current Medications Medication Drug [...] 1.5 mg/ml oral solution (1 source) Uncompetitive V-rxhmxc-J-aspartat e 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, Sigma-1 Agonist Start: 06-14-2023 take 10 mL by mouth every eight hours [place] DM 7.5-7.5 MG/5ML 10 mL Orally every [...] 08-29-2022 Chronic Other aftercare (1 source) 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; 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] Onset: 10-02-2022 [...] 03-24-2022 Episodic Other aftercare (1 source) Other terminal manager (current) drug therapy; Translations: [[facility] CURRENT DRUG THERAPY] Onset: 01-14-2022 Episodic Other bone disease and musculoskeletal deformities (1 source) Other specified disorders of bone density and structure, unspecified site; Translations: [[facility] D/O BONE DEN STRUCT UNS SITE] Onset: 05-01-2022 Episodic Screening and history of mental health and substance abuse codes (1 source) Personal history of nicotine dependence; Translations: [PERSONAL HISTORY OF NICOTINE DEPEND] Onset: 03-26-2022 Episodic Superficial injury; contusion (1 source) Insect bite (nonvenomous), left lower leg, initial encounter Onset: 11-12-2021 Resolved: 11-12-2021 Episodic Results Test Name Value Interpretation Reference Range Facility Alanine aminotransferase [En zymatic activity/volume] in Serum or PlasmaOrdered By: Gordy Matthew on 03-09-2024 ALT [Catalytic activity/Vol] 15 U/L 7-52 [facility] Albumin [Mass/volume] in Ser um or Plasma by Bromocresol green (BCG) dye binding methoOrdered By: Gordy Matthew on 03-09-2024 Albumin BCG dye [Mass/Vol] 4.2 g/dL 3.5-5.7 [facility] Alkaline phosphatase [Enzyma tic activity/volume] in Serum or PlasmaOrdered By: Gordy Matthew on 03-09-2024 ALP [Catalytic activity/Vol] 77 U/L 34-104 [facility] Aspartate aminotransferase [ Enzymatic activity/volume] in Serum or PlasmaOrdered By: Gordy Matthew on 03-09-2024 AST [Catalytic activity/Vol] 13 U/L 13-39 [facility] Bacteria [Presence] in Urine by AutomatedOrdered By: Gordy Matthew on 03-09-2024 Bacteria Auto Ql (U) Rare [HPF] None Seen [facility] Basophils Auto (Bld) [#/Vol] Ordered By: Gordy Matthew on 03-09-2024 Basophils (Bld) [#/Vol] 0.1 10*3/uL 0.0-0.2 [facility] Basophils/100 WBC Auto (Bld) Ordered By: Gordy aMtthew on 03-09-2024 Basophils/100 WBC (Bld) 0.5 % . F [facility] Bilirubin Test strip Ql (U)O rdered By: Gordy Matthew on 03-09-2024 Bilirubin Ql (U) Negative Negative [facility] Bilirubin.total [Mass/volume ] in Serum or PlasmaOrdered By: Gordy Matthew on 03-09-2024 Bilirubin [Mass/Vol] 0.4 mg/dL 0.3-1.0 [facility] C reactive protein [Mass/vol ume] in Serum or PlasmaOrdered By: Gordy Matthew on 03-09-2024 CRP [Mass/Vol] < 0.5 mg/dL 0.0-0.5 [facility] Calcium [Mass/volume] in Ser um or PlasmaOrdered By: Gordy Matthew on 03-09-2024 Calcium [Mass/Vol] 10.6 mg/dL High 8.6-10.3 [facility] Carbon dioxide, total [Moles /volume] in Serum or PlasmaOrdered By: Gordy Matthew on 03-09-2024 CO2 [Moles/Vol] 30.4 mmol/L 21.0-31.0 [facility] Chloride [Moles/volume] in S billy or PlasmaOrdered By: Gordy Matthew on 03-09-2024 Chloride [Moles/Vol] 103 mmol/L 98-107 [facility] Color Auto (U)Ordered By: Ashlie Matthew on 03-09-2024 Color (U) Light-yellow Yellow [facility] Creatine kinase [Enzymatic a ctivity/volume] in Serum or PlasmaOrdered By: Gordy Matthew on 03-09-2024 CK [Catalytic activity/Vol] 25 U/L Low 30-223 [facility] Creatinine [Mass/volume] in Serum or PlasmaOrdered By: Gordy Matthew on 03-09-2024 Creatinine [Mass/Vol] 0.80 mg/dL 0.60-1.20 [facility] Eosinophils Auto (Bld) [#/Vo l]Ordered By: Gordy Matthew on 03-09-2024 Eosinophils (Bld) [#/Vol] 0.0 10*3/uL 0.0-0.45 [facility] Eosinophils/100 WBC Auto (Bl d)Ordered By: Gordy Matthew on 03-09-2024 Eosinophils/100 WBC (Bld) 0.4 % . [facility] Epithelial cells.squamous [# /area] in Urine sediment by Automated countOrdered By: Gordy Matthew on 03-09-2024 Epithelial cells.squamous Auto (Urine sed) [#/Area] N/A [facility] Erythrocyte distribution wid th Auto (RBC) [Ratio]Ordered By: Gordy Matthew on 03-09-2024 Erythrocyte distribution width (RBC) [Ratio] 14.1 % 11.9-15.3 [facility] Erythrocyte sedimentation ra te by Photometric methodOrdered By: Gordy Matthew on 03-09-2024 ESR Photometric method (Bld) [Velocity] 25 mm/hr 0-29 [facility] Erythrocytes [#/area] in Uri ne sediment by Automated countOrdered By: Gordy Matthew on 03-09-2024 RBC Auto (Urine sed) [#/Area] 1-2 [HPF] 0-4 [facility] Globulin Calc (S) [Mass/Vol] Ordered By: Gordy Matthew on 03-09-2024 Globulin (S) [Mass/Vol] 2.9 g/dL [facility] Glucose [Mass/volume] in Ser um or PlasmaOrdered By: Gordy Matthew on 03-09-2024 Glucose [Mass/Vol] 100 mg/dL 70-100 [facility] Comment on above: ADA recommended refe rence rangeRandom Glucose Reference Range is dependent on time and content of last meal. Glucose of more than 200 mg/dL in a nonstressed, ambulatory subject supports the diagnosis of Diabetes Mellitus. Glucose [Mass/volume] in Uri ne by Test stripOrdered By: Gordy Matthew on 03-09-2024 Glucose Test strip (U) [Mass/Vol] Normal mg/dL Normal [facility] Hematocrit Auto (Bld) [Volum e fraction]Ordered By: Gordy Matthew on 03-09-2024 Hematocrit (Bld) [Volume fraction] 41.1 % 34.0-46.4 [facility] Hemoglobin Test strip Ql (U) Ordered By: Gordy Matthew on 03-09-2024 Hemoglobin Ql (U) Negative Negative [facility] Hemoglobin [Mass/volume] in BloodOrdered By: Gordy Matthew on 03-09-2024 Hemoglobin (Bld) [Mass/Vol] 13.6 g/dL 11.8-15.4 [facility] Hyaline casts [#/area] in Ur ine sediment by Automated countOrdered By: Gordy Matthew on 03-09-2024 Hyaline casts Auto (Urine sed) [#/Area] None [LPF] 0-8 [facility] Ketones Test strip Ql (U)Ord ered By: Gordy Matthew on 03-09-2024 Ketones Ql (U) Negative Negative [facility] Leukocyte esterase [Presence ] in Urine by Test stripOrdered By: Gordy Matthew on 03-09-2024 Leukocyte esterase Test strip Ql (U) Negative Negative [facility] Leukocytes [#/area] in Urine sediment by Automated countOrdered By: Grody Matthew on 03-09-2024 WBC Auto (Urine sed) [#/Area] 3-4 [HPF] 0-4 [facility] Leukocytes [#/volume] correc [place] for nucleated erythrocytes in Blood by Automated counOrdered By: Gordy Matthew on 03-09-2024 WBC corrected for nucl RBC Auto (Bld) [#/Vol] 11.4 10*3/uL 3.8-11.6 [facility] Lymphocytes Auto (Bld) [#/Vo l]Ordered By: Gordy Matthew on 03-09-2024 Lymphocytes (Bld) [#/Vol] 2.8 10*3/uL 1.00-4.8 [facility] Lymphocytes/100 WBC Auto (Bl d)Ordered By: Gordy Matthew on 03-09-2024 Lymphocytes/100 WBC (Bld) 24.4 % . [facility] MCH Auto (RBC) [Entitic mass ]Ordered By: Gordy Matthew on 03-09-2024 MCH (RBC) [Entitic mass] 28.8 pg 24.7-34.3 [facility] MCHC Auto (RBC) [Mass/Vol]Or dered By: Gordy Matthew on 03-09-2024 MCHC (RBC) [Mass/Vol] 33.0 g/dL 32.0-35.0 [facility] MCV Auto (RBC) [Entitic vol] Ordered By: Gordy Matthew on 03-09-2024 MCV (RBC) [Entitic vol] 87.3 fL 80-100 [facility] Monocytes Auto (Bld) [#/Vol] Ordered By: Gordy Matthew on 03-09-2024 Monocytes (Bld) [#/Vol] 1.0 10*3/uL High 0.0-0.8 [facility] Monocytes/100 WBC Auto (Bld) Ordered By: Gordy Matthew on 03-09-2024 Monocytes/100 WBC (Bld) 8.5 % . [facility] Mucus [Presence] in Urine by AutomatedOrdered By: Gordy Matthew on 03-09-2024 Mucus Auto Ql (U) Rare [LPF] [facility] Neutrophils Auto (Bld) [#/Vo l]Ordered By: Gordy Matthew on 03-09-2024 Neutrophils (Bld) [#/Vol] 7.5 10*3/uL 1.8-7.7 [facility] Neutrophils/100 WBC Auto (Bl d)Ordered By: Gordy Matthew on 03-09-2024 Neutrophils/100 WBC (Bld) 66.2 % . [facility] Nitrite Test strip Ql (U)Ord ered By: Gordy Matthew on 03-09-2024 Nitrite Ql (U) Negative Negative [facility] No Panel InformationOrdered By: Gordy Matthew on 03-09-2024 Estimated GFR (CKD-EPI) > 60.0 mL/Min [facility] Creatinine Clearance (Chem N/A [facility] Nucleated erythrocytes [Pres ence] in Blood by Automated countOrdered By: Gordy Matthew on 03-09-2024 Nucleated RBC Auto Ql (Bld) 0.1 /100{WBC} 0-0.5 [facility] Platelet mean volume Auto (B ld) [Entitic vol]Ordered By: Gordy Matthew on 03-09-2024 Platelet mean volume (Bld) [Entitic vol] 8.3 fL 6.3-10.7 [facility] Platelets Auto (Bld) [#/Vol] Ordered By: Gordy Matthew on 03-09-2024 Platelets (Bld) [#/Vol] 332 10*3/uL 150-450 [facility] Potassium [Moles/volume] in Serum or PlasmaOrdered By: Gordy Matthew on 03-09-2024 Potassium [Moles/Vol] 4.2 mmol/L 3.5-5.1 [facility] Protein Test strip (U) [Mass /Vol]Ordered By: Gordy Matthew on 03-09-2024 Protein (U) [Mass/Vol] Negative Negative [facility] Protein [Mass/volume] in Ser um or PlasmaOrdered By: Gordy Matthew on 03-09-2024 Protein [Mass/Vol] 7.1 g/dL 6.4-8.9 [facility] RBC Auto (Bld) [#/Vol]Ordere d By: Gordy Matthew on 03-09-2024 RBC (Bld) [#/Vol] 4.71 10*6/uL 3.60-5.00 [facility] Serum or plasma albumin/glob ulin mass ratioOrdered By: Gordy Matthew on 03-09-2024 Albumin/Globulin [Mass ratio] 1.4 {ratio} [facility] Serum or plasma anion gap de terminationOrdered By: Gordy Matthew on 03-09-2024 Anion gap [Moles/Vol] 9.8 mmol/L 6.0-15.0 [facility] Sodium [Moles/volume] in Ser um or PlasmaOrdered By: Gordy Matthew on 03-09-2024 Sodium [Moles/Vol] 139 mmol/L 136-145 [facility] Specific gravity Test strip (U) [Rel density]Ordered By: Gordy Matthew on 03-09-2024 Specific gravity (U) [Rel density] 1.013 1.001-1.030 [facility] Thyrotropin [Units/volume] i n Serum or PlasmaOrdered By: Gordy Matthew on 03-09-2024 TSH Qn 2.78 m[IU]/L 0.45-5.33 [facility] Thyroxine (T4) free [Mass/vo lume] in Serum or PlasmaOrdered By: Gordy Matthew on 03-09-2024 Free T4 [Mass/Vol] 0.78 ng/dL 0.61-1.12 [facility] Urea nitrogen [Mass/volume] in Serum or PlasmaOrdered By: Gordy Matthew on 03-09-2024 Urea nitrogen [Mass/Vol] 15 mg/dL 01-06 [facility] Urine appearanceOrdered By: Gordy Matthew on 03-09-2024 Appearance (U) Cloudy Abnormal Clear [facility] Urobilinogen Test strip (U) [Mass/Vol]Ordered By: Gordy Matthew on 03-09-2024 Urobilinogen (U) [Mass/Vol] Normal mg/dL Normal [facility] WBC Auto (Bld) [#/Vol]Ordere d By: Gordy Matthew on 03-09-2024 WBC (Bld) [#/Vol] 11.4 10*3/uL 3.8-11.6 [facility] pH Test strip (U)Ordered By: Gordy Matthew on 03-09-2024 pH (U) 7.0 [pH] 5.0-9.0 [facility] COVID/FLU/RSV RT-PCRon 06-14 SARS-CoV-2 (COVID-19) RNA VIVEK+probe Ql (Unsp spec) Negative [employer] Other COVID/FLU/RSV RT-PCR Negative [facility] Other COVID/FLU/RSV RT-PCR Positive [employer] [facility] Other Outside Colonoscopyon 2022 Outside Colonoscopy [id number]#1.00CD:127 Normal [facility] Reminderson 10-02-2022 Reminders --- From: Kisha Samuel LPN To: GSN - Clinical; Sent: 10/02/2022 08:43:18 EDT Show up: 08/31/2032 07:00:00 EDT Subject: colonoscopy recall Due Date/Time: 10/01/2032 07:00:00 EDT Reminder/Recall Patient is due for screening colonoscopy 10/01/2032. [facility] Consent for Procedure/Surger yon 09-11-2022 Consent for Procedure/Surgery [id number]#1.00CD:127 [facility] Facesheeton 09-11-2022 Facesheet [id number]#1.00CD:127 [facility] Pre-Certification Formon Pre-Certification Form [id number]#1.00CD:127 [facility] Ambulatory Visit Summaryon 0 09-10-2022 Ambulatory Visit Summary BRIE EAGLE :1955 Visit Date:09/10/2022 Ambulatory Visit Instructions Your Care Team Attending Physician - HANNY HERNANDEZ, Lui Pineda Primary Care Physician - Aretha Brewster MD This Is Your Medications List Contact prescribing [...] Colonoscopy, Dilatation of esophageal stricture, EGD - Esophagogastroduod enoscopy, EGD - Esophagogastroduod enoscopy, Tubal ligation. Discharge Vitals Heart Rate (Peripheral) [...] reflux disease) Osteoarthritis Seasonal allergic rhinitis Normal [facility] Physician Referralon 023 Physician Referral [id number]#1.00CD:127 Normal [facility] Follow-Upon 05-15-2022 Follow-Up [id number] Brie Eagle 1955 F Date Provider Department Center 05/15/2022 125-TIMMY TINSLEY MP ORTHO MPORTHO Family History Problem Relation Age of Onset Diabetes Mother Heart disease Mother Arthritis Mother No Known Problems Father Family Status - Relation Status Age at Mother Father Level of Service:03690 SD OFFICE/OUTPATIENT ESTABLISHED LOW MDM 20-29 MIN Reason for Visit and Comments: Follow-up [805114] - Yearly follow up Normal [facility] XR DEXA BONE DENSITYon 04-28 XR DEXA BONE DENSITY EXAMINATION: XR DEXA BONE DENSITY, 04/28/2022 8:37 AM EST HISTORY: [...] by: STEPHANIE RAYA Date: 2022-04-28 17:04 Normal [facility] MAMM SCREEN 3D ARCELIA CADon 04-23-2022 MG MAMM SCREEN 3D ARCELIA CAD Patient: BRIE EAGLE Exam Date: 04/23/2022 : 1955 Gender:F Ordering : DR ARETHA BREWSTER . Admission #: [id number] Family : Order #: [id number] CLICK HERE TO VIEW EXAM RADIOLOGY REPORT PROCEDURE: MAMMOGRAM SCREENING 3D BILATERAL CAD COMPARISON: MAMM SCREEN 3D ARCELIA CAD, 04/17/2021. INDICATIONS: Screening mammography Calculator Name NCI Breast Cancer Risk Assessment Tool 5 Year Breast Cancer Risk Not Reported. Lifetime Breast Cancer Risk Not Reported. Personal Breast Cancer No Personal Ovarian Cancer No Treatments None Family Cancers None LOCATION: [facility] BREAST COMPOSITION: Scattered areas fibroglandular density. [...] Raya MD on 04/23/2022 at 13:10 Normal [facility] NM STRESS/REST MULTIon 04-10 NM STRESS/REST MULTI Patient: BRIE EAGLE Exam Date: 04/10/2022 : 1955 Gender:F Ordering : DR ARETHA BREWSTER . Admission #: [id number] Family : Order #: [id number] CLICK HERE TO VIEW EXAM RADIOLOGY REPORT [...] M.D. on 04/10/2022 at 13:53 Normal [facility] AMYLASEon 03-24-2022 Amylase [Catalytic activity/Vol] 51 U/L Normal 25-115 [facility] Comment on above: Performed By: #### A MY, LIPA, CMADM, HSTROPN #### [facility] [address] [place] [address] Dr. Christos Richardson CARDIAC MONA ADMITon 022 CK [Catalytic activity/Vol] 67 U/L Normal 26-192 [facility] Comment on above: Performed By: #### A MY, LIPA, CMADM, HSTROPN #### [facility] [address] [address] [address] Christos Richardson CK.MB [Mass/Vol] 0.93 ng/mL Normal <=3.60 [facility] Comment on above: Performed By: #### A MY, LIPA, CMADM, HSTROPN #### [facility] [address] [address] [address] Christos Richardson GAYATHRI 32 ng/mL Normal 9-82 [facility] Comment on above: Performed By: #### A MY, LIPA, CMADM, HSTROPN #### [facility] [address] [address] [address] Christos Richardson CBC AUTO DIFFon 03-24-2022 BASO # 0.1 103/ul Normal 0.0-0.1 [facility] Comment on above: Performed By: #### C BC ####[facility] [address] [address]Dr. Christos Richardson Basophils/100 WBC (Bld) 0.7 % Normal 0.2-2.0 [facility] Comment on above: Performed By: #### C BC ####[facility] [address] [place] [address]DrEstela Richardson EO # 0.1 103/ul Normal 0.0-0.7 [facility] Comment on above: Performed By: #### C BC ####[facility] [address] [address]Dr. Christos Richardson Eosinophils/100 WBC (Bld) 0.8 % Critically low 0.9-7.0 [facility] Comment on above: Performed By: #### C BC ####[facility] [address] [address]Dr. Christos Richardson Erythrocyte distribution width (RBC) [Ratio] 13.4 % Normal 11.0-15.0 [facility] Comment on above: Performed By: #### C BC ####[facility] [address] [address]DrEstela Richardson Hematocrit (Bld) [Volume fraction] 40.9 % Normal 36.0-48.0 [facility] Comment on above: Performed By: #### C BC ####[facility] [address] [address]Dr. Christos Richardson Hemoglobin (Bld) [Mass/Vol] 13.3 g/dL Normal 12.0-16.0 [facility] Comment on above: Performed By: #### C BC ####[facility] [address] [id number]. Christos Richardson IG # 0.02 10e3/ul Normal 0.00-0.03 [facility] Comment on above: Performed By: #### C BC ####[facility] [address] [place] [address]Dr. Christos Richardson IG % 0.3 % Normal 0.0-0.5 [facility] Comment on above: Performed By: #### C BC ####[facility] [address] [address]Dr. Christos Dylan LYMPH # 2.3 103/ul Normal 1.2-3.8 [facility] Comment on above: Performed By: #### C BC ####[facility] [address] [place] [address]Dr. Christos Richardson Lymphocytes/100 WBC (Bld) 32.6 % Normal 20.5-60.0 [facility] Comment on above: Performed By: #### C BC ####[facility] [address] [address]Dr. Devoramarissa Richardson MANUAL DIFF REQ NO Normal [facility] Comment on above: Performed By: #### C BC ####[facility] [address] [address]Dr. Christos Richardson MCH (RBC) [Entitic mass] 29.2 pg Normal 26.7-34.0 [facility] Comment on above: Performed By: #### C BC ####[facility] [address] [place] [address]Dr. Christos Richardson MCHC (RBC) [Mass/Vol] 32.5 g/dL Normal 29.9-35.2 [facility] Comment on above: Performed By: #### C BC ####[facility] [address] [place] [address]Dr. Christos Dylan MCV (RBC) [Entitic vol] 89.9 fL Normal 81.0-99.0 [facility] Comment on above: Performed By: #### C BC ####[facility] [address] [place] [id number]. Christos Richardson MONO # 1.0 103/ul Critically high 0.3-0.8 [facility] Comment on above: Performed By: #### C BC ####[facility] [address] [place] [phone]. Christos Richardson Monocytes/100 WBC (Bld) 14.2 % Critically high 1.7-12. 0 [facility] Comment on above: Performed By: #### C BC ####[facility] [address] [phone]. Christos Richardson NEUT # 3.7 103/ul Normal 1.4-6.5 [facility] Comment on above: Performed By: #### C BC ####[facility] [address] [address]Dr. Christos Richardson Neutrophils/100 WBC (Bld) 51.4 % Normal 43.0-75.0 [facility] Comment on above: Performed By: #### C BC ####[facility] [address] [place] [phone]. Christos Richardson Platelet mean volume (Bld) [Entitic vol] 9.7 fL Normal 9.5-13.5 [facility] Comment on above: Performed By: #### C BC ####[facility] [address] [id number]. Christos Richardson PLT 271 103/ul Normal 150-450 [facility] Comment on above: Performed By: #### C BC ####[facility] [address] [place] [id number]. Christos Richardson RBC 4.55 106/ul Normal 4.20-5.40 [facility] Comment on above: Performed By: #### C BC ####[facility] [address] [place], [place] [id number]. Christos Richardson WBC 7.1 103/ul Normal 4.0-11.0 [facility] Comment on above: Performed By: #### C BC ####[facility] [address] [place], [place] [id number] Richardson LIPASEon 03-24-2022 Lipase [Catalytic activity/Vol] 104.0 U/L Normal 73.0-393.0 [facility] Comment on above: Performed By: #### A MY LIPA, CMADM, HSTROPN #### [facility] [address] [address] [address] Christos Richardson TROPONIN, HIGH SENSITIVITYon 03-24-2022 HSTROP 6.6 pg/mL Normal 4.0-51.3 [facility] Comment on above: Result Comment: CUT- OFF POINTS HAVE BEEN ESTABLISHED BASED ON THE FOURTH UNIVERSAL DEFINITIONS OF MYOCARDIAL INFARCTION. THE UPPER REFERENCE LIMIT (URL) OF TROPONIN, DEFINED THE 99TH PERCENTILE OF cTnI DISTRIBUTION IN A REFERENCE POPULATION, HAS BEEN CONFIRMED THE DECISION THRESHOLD FOR VA DIAGNOSIS. Performed By: #### H STROPN ####[facility] [address] [place] [address]Dr. Christos Richardson HSTROP 6.3 pg/mL Normal 4.0-51.3 [facility] Comment on above: Result Comment: CUT- OFF POINTS HAVE BEEN ESTABLISHED BASED ON THE FOURTH UNIVERSAL DEFINITIONS OF MYOCARDIAL INFARCTION. THE UPPER REFERENCE LIMIT (URL) OF TROPONIN, DEFINED THE 99TH PERCENTILE OF cTnI DISTRIBUTION IN A REFERENCE POPULATION, HAS BEEN CONFIRMED THE DECISION THRESHOLD FOR VA DIAGNOSIS. Performed By: #### A MY, LIPA, CMADM, HSTROPN #### [facility] [address] [address] [address] Christos Richardson XR CHEST 1 Von [...] by: ULISES CALDERON Date: 2022-03-24 13:53 Normal [facility] INSULINon 01-09-2022 Insulin 10.4 uIU/mL Normal 2.6-24.9 [facility] Comment on above: Performed By: #### I NSULIN #### [facility] [address] [place] [address] Dr. Christos Richardson CBC AUTO DIFFon 01-08-2022 BASO # 0.1 103/ul Normal 0.0-0.1 [facility] Comment on above: Performed By: #### C BC #### [facility] [address] [place] [address] Dr. Christos Richardson Basophils/100 WBC (Bld) 0.8 % Normal 0.2-2.0 [facility] Comment on above: Performed By: #### C BC #### [facility] [address] [place] [address] Dr. Christos Richardson EO # 0.1 103/ul Normal 0.0-0.7 [facility] Comment on above: Performed By: #### C BC #### [facility] [address] [place] [address] Dr. Christos Richardson Eosinophils/100 WBC (Bld) 1.5 % Normal 0.9-7.0 [facility] Comment on above: Performed By: #### C BC #### [facility] [address] [place] [address] Dr. Christos Richardson Erythrocyte distribution width (RBC) [Ratio] 13.6 % Normal 11.0-15.0 [facility] Comment on above: Performed By: #### C BC #### [facility] [address] [place] [address] Dr. Christos Richardson Hematocrit (Bld) [Volume fraction] 40.4 % Normal 36.0-48.0 [facility] Comment on above: Performed By: #### C BC #### [facility] [address] [place] [address] Dr. Christos Richardson Hemoglobin (Bld) [Mass/Vol] 12.9 g/dL Normal 12.0-16.0 [facility] Comment on above: Performed By: #### C BC #### [facility] [address] [place] [address] Dr. Christos Richardson IG # 0.01 10e3/ul Normal 0.00-0.03 [facility] Comment on above: Performed By: #### C BC #### [facility] [address] [place] [address] Dr. Christos Richardson IG % 0.2 % Normal 0.0-0.5 [facility] Comment on above: Performed By: #### C BC #### [facility] [address] [place] [address] Dr. Christos Richardson LYMPH # 2.4 103/ul Normal 1.2-3.8 [facility] Comment on above: Performed By: #### C BC #### [facility] [address] [place] [address] Dr. Christos Richardson Lymphocytes/100 WBC (Bld) 39.7 % Normal 20.5-60.0 [facility] Comment on above: Performed By: #### C BC #### [facility] [address] [place] [address] Dr. Christos Richardson MANUAL DIFF REQ NO Normal [facility] Comment on above: Performed By: #### C BC #### [facility] [address] [place] [address] Dr. Christos Richardson MCH (RBC) [Entitic mass] 29.0 pg Normal 26.7-34.0 [facility] Comment on above: Performed By: #### C BC #### [facility] [address] [place] [address] Dr. Christos Richardson MCHC (RBC) [Mass/Vol] 31.9 g/dL Normal 29.9-35.2 [facility] Comment on above: Performed By: #### C BC #### [facility] [address] [place] [address] Dr. Christos Richardson MCV (RBC) [Entitic vol] 90.8 fL Normal 81.0-99.0 [facility] Comment on above: Performed By: #### C BC #### [facility] [address] [place] [address] Dr. Christos Richardson MONO # 0.8 103/ul Normal 0.3-0.8 [facility] Comment on above: Performed By: #### C BC #### [facility] [address] [place] [address] Dr. Christos Richardson Monocytes/100 WBC (Bld) 13.5 % Critically high 1.7-12. 0 [facility] Comment on above: Performed By: #### C BC #### [facility] [address] [place] [address] Dr. Christos Richardson NEUT # 2.7 103/ul Normal 1.4-6.5 [facility] Comment on above: Performed By: #### C BC #### [facility] [address] [place] [address] Dr. Christos Richardson Neutrophils/100 WBC (Bld) 44.3 % Normal 43.0-75.0 [facility] Comment on above: Performed By: #### C BC #### [facility] [address] [place] [address] Dr. Christos Richardson Platelet mean volume (Bld) [Entitic vol] 10.4 fL Normal 9.5-13.5 [facility] Comment on above: Performed By: #### C BC #### [facility] [address] [place] [address] Dr. Christos Richardson PLT 287 103/ul Normal 150-450 [facility] Comment on above: Performed By: #### C BC #### [facility] [address] [place] [address] Dr. Christos Richardson RBC 4.45 106/ul Normal 4.20-5.40 [facility] Comment on above: Performed By: #### C BC #### [facility] [address] [place] [address] Dr. Christos Richardson WBC 6.1 103/ul Normal 4.0-11.0 [facility] Comment on above: Performed By: #### C BC #### [facility] [address] [place] [address] Dr. Christos Richardson FREE THYROXINE INDEX T7on FTI 2.00 Normal 1.30-4.50 [facility] Comment on above: Performed By: #### C MP, T7, LIPID, TSH ####[facility] [address] [place] [id number]. Christos Richardson T3U 35.0 % Normal 30.0-39.0 [facility] Comment on above: Performed By: #### C MP, T7, LIPID, TSH ####[facility] [address] [place] [id number]. Christos Richardson T4 [Mass/Vol] 5.70 ug/dL Normal 4.80-13.90 [facility] Comment on above: Performed By: #### C MP, T7, LIPID, TSH ####[facility] [address] [place] [id number]. Christos Richardson GLYCOHEMOGLOBIN A1Con 2021 ADA RECOMMENDATION SEE BELOW Normal [facility] Comment on above: Result Comment: ADA RECOMMENDED LIMIT 4.0 - 6.0 ADA THERAPEUTIC TARGET < 7.0 ACTION SUGGESTED > 7.0 Performed By: #### A 1C ####[facility] [address] [place] [address]Dr. Christos Richardson Glucose [Mass/Vol] 114 mg/dL Normal [facility] Comment on above: Performed By: #### A 1C ####[facility] [address] [place] [address]Dr. Christos Richardson HbA1c (Bld) [Mass fraction] 5.6 % Normal 4.5-6.2 [facility] Comment on above: Performed By: #### A 1C ####[facility] [address] [place] [address]Dr. Christos Richardson IRONon 01-08-2022 Iron [Mass/Vol] 100.0 ug/dL Normal 50.0-170.0 [facility] Comment on above: Performed By: #### I BLANCO ####[facility] [address] [place] [address]Dr. Christos Richardson LIPID PROFILEon 01-08-2022 CHOL-HDL RATIO NORM SEE BELOW Normal [facility] Comment on above: Result Comment: 3.3 - 4.4 LOW RISK 4.4 - 7.1 AVERAGE RISK 7.1 - 11.0 MODERATE RISK >11.0 HIGH RISK Performed By: #### C MP, T7, LIPID, TSH ####[facility] [address] [place] [phone]. Christos Richardson Cholesterol [Mass/Vol] 187 mg/dL Normal <=200 [facility] Comment on above: Performed By: #### C MP, T7, LIPID, TSH ####[facility] [address] [place] [phone]. Christos Richardson Cholesterol in HDL [Mass/Vol] 63 mg/dL Critically high 40-60 [facility] Comment on above: Performed By: #### C MP, T7, LIPID, TSH ####[facility] [address] [place] [address]Dr. Christos Richardson Cholesterol in LDL [Mass/Vol] 110.8 mg/dL Normal [facility] Comment on above: Performed By: #### C MP, T7, LIPID, TSH ####[facility] [address] [place] [address]Dr. Christos Richardson Cholesterol.total/Choles terol in HDL [Mass ratio] 3.0 {ratio} Normal [facility] Comment on above: Performed By: #### C MP, T7, LIPID, TSH ####[facility] [address] [place] [phone]. Christos Richardson HDL NORMAL > or = 60 mg/dl - LOW CARDIOVASCULAR RISK <40 mg/dl - HIGH CARDIOVASCULAR RISK Normal [facility] Comment on above: Performed By: #### C MP, T7, LIPID, TSH ####[facility] [address] [place] [address]Dr. Devoralan Richardson LDL CALC NORMAL SEE BELOW Normal [facility] Comment on above: Result Comment: <100 mg/dl OPTIMAL 100 - 129 mg/dl NEAR OR ABOVE OPTIMAL 130 - 159 mg/dl BORDERLINE HIGH 160 - 189 mg/dl HIGH >190 mg/dl VERY HIGH Performed By: #### C MP, T7, LIPID, TSH ####[facility] [address] [place] [address]Dr. Yilan Richardson Triglyceride [Mass/Vol] 66 mg/dL Normal <=150 [facility] Comment on above: Performed By: #### C MP, T7, LIPID, TSH ####[facility] [address] [place] [phone]. Christos Richardson VLDL CALC 13.2 mg/dL Normal [facility] Comment on above: Performed By: #### C MP, T7, LIPID, TSH ####[facility] [address] [place] [address]Dr. Christos Richardson PROF 14(COMP METB)on 022 Albumin [Mass/Vol] 3.4 g/dL Normal 3.4-5.0 [facility] Comment on above: Performed By: #### C MP, T7, LIPID, TSH ####[facility] [address] [place] [address]Dr. Christos Richardson Albumin/Globulin [Mass ratio] 0.9 {ratio} Normal [facility] Comment on above: Performed By: #### C MP, T7, LIPID, TSH ####[facility] [address] [place] [address]Dr. Christos Richardson ALP [Catalytic activity/Vol] 79 U/L Normal 46-116 [facility] Comment on above: Performed By: #### C MP, T7, LIPID, TSH ####[facility] [address] [place] [phone]. Christos Richardson ALT [Catalytic activity/Vol] 22 U/L Normal 14-59 [facility] Comment on above: Performed By: #### C MP, T7, LIPID, TSH ####[facility] [address] [place] [phone]. Christos Richardson Anion gap [Moles/Vol] 11.5 mmol/L Normal [facility] Comment on above: Performed By: #### C MP, T7, LIPID, TSH ####[facility] [address] [place] [address]Dr. Christos Richardson AST [Catalytic activity/Vol] 16 U/L Normal 15-37 [facility] Comment on above: Performed By: #### C MP, T7, LIPID, TSH ####[facility] [address] [place] [address]Dr. Christos Richardson Bilirubin [Mass/Vol] 0.3 mg/dL Normal 0.2-1.0 [facility] Comment on above: Performed By: #### C MP, T7, LIPID, TSH ####[facility] [address] [place] [address]Dr. Christos Richardson Calcium [Mass/Vol] 9.1 mg/dL Normal 8.5-10.1 [facility] Comment on above: Performed By: #### C MP, T7, LIPID, TSH ####[facility] [address] [place], [place] [address]Dr. Christos Richardson Chloride [Moles/Vol] 106 mmol/L Normal 98-107 [facility] Comment on above: Performed By: #### C MP, T7, LIPID, TSH ####[facility] [address] [place], [place] [address]Dr. Christos Richardson CO2 [Moles/Vol] 27.7 mmol/L Normal 21.0-32.0 [facility] Comment on above: Performed By: #### C MP, T7, LIPID, TSH ####[facility] [address] [place], [place] [address]Dr. Christos Richardson Creatinine [Mass/Vol] 0.75 mg/dL Normal 0.55-1.02 [facility] Comment on above: Performed By: #### C MP, T7, LIPID, TSH ####[facility] [address] [place], [place] [address]Dr. Christos Richardson EGFR-AF PAKISTANI >60 Normal >=60 [facility] Comment on above: Performed By: #### C MP, T7, LIPID, TSH ####[facility] [address] [place], [place] [address]Dr. Christos Richardson EGFR-NON AF PAKISTANI >60 Normal >=60 [facility] Comment on above: Performed By: #### C MP, T7, LIPID, TSH ####[facility] [address] [place], [place] [address]Dr. Yilan Richardson Globulin (S) [Mass/Vol] 3.9 g/dL Normal [facility] Comment on above: Performed By: #### C MP, T7, LIPID, TSH ####[facility] [address] [place] [address]Dr. Christos Richardson Glucose [Mass/Vol] 95 mg/dL Normal 74-106 [facility] Comment on above: Performed By: #### C MP, T7, LIPID, TSH ####[facility] [address] [place] [address]Dr. Christos Richardson Potassium [Moles/Vol] 4.2 mmol/L Normal 3.5-5.1 [facility] Comment on above: Performed By: #### C MP, T7, LIPID, TSH ####[facility] [address] [place] [address]Dr. Christos Richardson Protein [Mass/Vol] 7.3 g/dL Normal 6.4-8.2 [facility] Comment on above: Performed By: #### C MP, T7, LIPID, TSH ####[facility] [address] [place] [address]Dr. Christos Richardson Sodium [Moles/Vol] 141 mmol/L Normal 136-145 [facility] Comment on above: Performed By: #### C MP, T7, LIPID, TSH ####[facility] [address] [place] [address]Dr. Christos Richardson Urea nitrogen [Mass/Vol] 15.0 mg/dL Normal 7.0-18.0 [facility] Comment on above: Performed By: #### C MP, T7, LIPID, TSH ####[facility] [address] [place] [address]Dr. Christos Richardson Urea nitrogen/Creatinine [Mass ratio] 20.0 mg/mg Normal [facility] Comment on above: Performed By: #### C MP, T7, LIPID, TSH ####[facility] [address] [place] [address]Dr. Christos Richardson TSHon 01-08-2022 TSH 3.880 uIU/mL Critically high 0.358-3.740 [facility] Comment on above: Performed By: #### C MP, T7, LIPID, TSH ####[facility] [address] [place], [place] [address]BgEstela Richardson HIP LEFT 1 OR 2 VWS WITH PEL VISon 05-29-2021 HIP LEFT 1 OR 2 VWS WITH PELVIS [facility] Department of Radiology [address] [place] [id number] == Patient Name: BRIE EAGLE : 1955 Sex: F Age: Race: White Pt. Location: Patient Status: D Ordered Date: 05/29/2021 1:05:00 PM Completed Date: 05/29/2021 01:30 PM Requesting Provider: TIMMY TINSLEY Attending Provider: Report Copy To: Signs & Symptoms: Z47.1 Aftercare following joint replacement surgery I10 History: Comments: evaluate Exam: HIP LEFT 1 OR 2 VWS WITH PELVIS == HIP LEFT 1 OR 2 VWS WITH [...] prosthesis. Electronically signed: Eder Crowder. Transcribed by: [email or web address], User Resident: EDER CROWDER Electronically Signed by: EDER CROWDER @ 05/30/2021 12:27 PM I personally read this/these film(s) with this resident Normal [facility] Comment on above: Order Comment: evalu ate Vital Signs Date Time Vital Sign Value Performing Clinician Facility 06-14-2023 09:30-0500 Body height 162.56 cm Sarah Sargent Other [facility] Other 06-14-2023 09:30-0500 Body mass index (BMI) [Ratio] 30.65 kg/m2 Sarah Sargent Other [facility] Other 06-14-2023 09:30-0500 Body temperature 98.8 [degF] Sarah Sargent Other [facility] Other 06-14-2023 09:30-0500 Body weight 81.01 kg Sarah Sargent Other [facility] Other 06-14-2023 09:30-0500 Diastolic blood pressure 67 mm[Hg] Sarah Sargent Other [facility] Other 06-14-2023 09:30-0500 Respiratory rate 16 /min Sarah Sargent Other [facility] Other 06-14-2023 09:30-0500 SaO2% (BldA) [Mass fraction] 96 % Sarah Sargent Other [facility] Other 06-14-2023 09:30-0500 Systolic blood pressure 129 mm[Hg] Sarah Sragent Other [facility] Other 09-10-2022 15:17-0400 Blood Pressure Location Lui BERNSTEINL [facility] [place] 09-10-2022 15:17-0400 Diastolic blood pressure 64 mm[Hg] Lui BERNSTEINL [facility] [place] 09-10-2022 15:17-0400 Heart rate 72 /min Lui NILL [facility] [place] 09-10-2022 15:17-0400 Respiratory rate 16 /min Lui NILL [facility] [place] 09-10-2022 15:17-0400 Systolic blood pressure 138 mm[Hg] Lui BERNSTEINL [facility] [place] 11-12-2021 17:50-0400 Body height 162.56 cm Olivia Mclaughlinmond Other [facility] Other 11-12-2021 17:50-0400 Body mass index (BMI) [Ratio] 27.46 kg/m2 Olivia Mclaughlinmond Other [facility] Other 11-12-2021 17:50-0400 Body temperature 97.8 [degF] Olivia Mclaughlinmond Other [facility] Other 11-12-2021 17:50-0400 Body weight 72.58 kg Olivia Mclaughlinmond Other [facility] Other 11-12-2021 17:50-0400 Diastolic blood pressure 59 mm[Hg] Olivia Mclaughlinmond Other [facility] Other 11-12-2021 17:50-0400 Respiratory rate 16 /min Olivia Mclaughlinmond Other [facility] Other 11-12-2021 17:50-0400 SaO2% (BldA) [Mass fraction] 98 % Olivia Dean Other [facility] Other 11-12-2021 17:50-0400 Systolic blood pressure 130 mm[Hg] Olivia Dean Other [facility] Other Encounters Encounter Date Encounter Type Care Provider Facility Start: 03-09-2024 End: 03-09-2024 ambulatory MD Aretha Brewster Work Phone: [facility] Work Phone: Start: 03-09-2024 End: 03-09-2024 Patient encounter procedure MD Aretha Brewster Work Phone: [facility] [address] Work Phone: Start: 01-27-2024 End: 01-27-2024 ambulatory EUGENIO H TIMMIS Not Available Start: 01-04-2024 End: 01-04-2024 ambulatory EUGENIO H TIMMIS Not Available Start: 09-01-2023 End: 09-01-2023 ambulatory EUGENIO H TIMMIS Not Available Start: 06-14-2023 End: 06-14-2023 ambulatory Sarah Sargent Other [facility] Other Start: 06-14-2023 Office outpatient vi sit 25 minutes Sarah Sargent [facility] Start: 10-01-2022 End: 10-02-[address] LUI GAMINO . Facility:[facility] Start: 09-10-2022 End: 09-11-2022 ambulatory Lui GAMINO Facility:[facility] Start: 09-10-2022 End: 09-10-2022 Patient encounter procedure Lui GAMINO [facility] Start: 08-06-2022 ambulatory Lui GAMINO Facility:[facility] Start: 06-23-[address] LUI GAMINO . Facil ity:[facility] Start: 05-15-2022 End: 05-16-2022 ambulatory TIMMY TINSLEY [facility] Start: 04-28-2022 End: 04-29-[address] ARETHA BREWSTER . Facility:[facility] Start: 04-23-2022 End: 04-24-[address] ARETHA BREWSTER . Facility:[facility] Start: 04-10-2022 End: 04-11-[address] ARETHA BREWSTER . Facility:[facility] Start: 03-24-2022 End: 03-24-2022 ambulatory JESSICA MUKHERJEE . Facility:[facility] Start: 01-14-2022 Encounter for genera l adult medical examination without abnormal findings DR ARETHA BREWSTER . [facility] Start: 01-08-2022 End: 01-09-[address] ARETHA BREWSTER . Facility:[facility] Start: 01-08-2022 End: 01-09-2022 Encounter for general adult medical examination without abnormal findings DR ARETHA BREWSTER . Facility:[facility] Start: 11-12-2021 End: 11-12-2021 ambulatory Olivia Dean Other [facility] Other Start: 11-12-2021 Office outpatient vi sit 15 minutes Olivia Dean [facility] Procedures Date Procedure Procedure Detail Performing Clinician Arthroscopy of knee Lui NILL Colonoscopy Lui NILL Colonoscopy Lui NILL Dilatation of esophageal stricture Lui NILL Esophagogastroduodenoscopy M ichael NILL Esophagogastroduodenoscopy M ichael NILL Ligation of fallopian tube M ichael NILL Reduction mammoplasty Michae l NILL Repair of hip Lui NILL Plan of Treatment Date Care Activity Detail Author Start: 03-09-2024 Hepatitis B core ant ibody measurement [facility] Start: 03-09-2024 [facility] 24 hour urine [facility] Albumin [Mass/volume ] in Serum or Plasma [facility] Albumin/Globulin ratio [facility] Aldolase measurement [facility] Chromatin Ab [Units/ volume] in Serum or Plasma [facility] Electrophoresis: [id number] [facility] Electrophoresis: xgoxx-7-hbsluvxj [facility] Electrophoresis: beta-globulin [facility] Electrophoresis: gamma globulin [facility] Globulin [Mass/volume] in Serum [facility] Hepatitis B virus ortiz rface Ab [Presence] in Serum [facility] Hepatitis B virus ortiz rface Ag [Presence] in Serum or Plasma by Immunoassay [facility] Hepatitis C virus Ig G Ab [Presence] in Serum or Plasma by Immunoassay [facility] Homogenous nuclear A b pattern [Titer] in Serum [facility] Immunofixation for Urine [facility] Interferon gamma assay [facility] Measurement of monoc lonal protein concentration [facility] Mycobacterium tuberc ulosis stimulated gamma interferon [Interpretation] in Blood Qualitative [facility] Mycobacterium tuberc ulosis stimulated gamma interferon release by CD4+ and CD8+ T-cells [Units/volume] corrected for background in Blood [facility] Mycobacterium tuberc ulosis tuberculin stimulated gamma interferon [Presence] in Blood [facility] Nuclear Ab [Titer] in Serum [facility] Protein [Mass/volume ] in Serum or Plasma [facility] Protein [Mass/volume] in Urine [facility] Reagin Ab [Presence] in Serum by RPR [facility] Immunizations Immunization Date Immunization Notes Care Provider Fa cili 04-15-2022 influenza virus vaccine, unspecified formulation Lui GAMINO [facility] [place] 04-14-2022 SARS-CoV-2 (COVID-19 ) mRNAMUL.[id number] Lui GAMINO [facility] [place] 02-10-2022 SARS-CoV-2 mRNA (higntgxuuat-yugc-hmzmj se) vaccine Lui GAMINO [facility] [place] 08-26-2021 SARS-CoV-2 mRNA (vmwxhuwqcnh-lexo-xrjrj se) vaccine Lui GAMINO [facility] [place] 02-25-2021 SARS-CoV-2 (COVID-19 ) mRNA BNT-162b2 vax Lui BERNSTEINL [facility] [place] 02-04-2021 SARS-CoV-2 (COVID-19 ) mRNA BNT-162b2 vax Lui BERNSTEINL [facility] [place] Payers Date Payer Category Payer Medicare [id number] 1955 Unknown [id number] 2.16.84 [id number] 1955 Unknown [id number] 2.16.84 [id number] 1955 Unknown [id number] 2.16.84 0.1.856013.3.579.2.593 1955 Unknown [id number] 2.16.84 0.1.947915.3.579.2.593 1955 Unknown [id number] 2.16.84 0.1.691193.3.579.2.593 1955 Unknown [id number] 2.16.84 0.1.106029.3.579.2.593 1955 Unknown [id number] 2.16.84 0.1.752873.3.579.2.593 1955 Unknown [id number] 2.16.8 40.1.173489.3.579.2.727 1955 Unknown [id number] 2.16.8 40.1.105626.3.579.2.727 1955 Unknown [id number] 2.16.84 0.1.478518.3.579.2.1259 1955 Unknown [id number] 2.16.84 0.1.211132.3.579.2.1259 1955 Unknown [id number] 2.16.84 0.1.384104.3.579.2.1259 Private Health Insurance [id number] Social History Date Type Detail Facility Sex Assigned At [facility] Start: 09-10-2022 Tobacco smoking status Ex-smoker (fi nding) [facility] [place] Tobacco smoking status Never [facility] [place] Start: 1955 Sex Assigned At Female F [facility] Functional Status Date Assessment Result Facility 09-10-2022 Functional Status N/A [facility] 11-12-2021 to 06-14-2023 Note Date [...] previous rx of steroids. Use rx of [place] as directed. Discussed importance of adequate hydration [...] plan. Patient sent home in stable condition. [facility] Other 04-19-2023 NoteOPERATIVE NOTE OPERATION DATE: 10/01/2022 ADDENDUM: Please add to the operative report - Follow up screening colonoscopy should be in 10 years.[id number] NoteOPERATIVE NOTE OPERATION DATE: 10/01/2022 PREOPERATIVE DIAGNOSIS: [...] in good condition. CC: Aretha Brewster M.D.[id number] NoteChief Complaint consultation for screening colonoscopy HPI [...] and Sister. Immunizations Vaccin (more content not included)...[facility]:Result Comment: Electronically Signed By: HANNY HERNANDEZ, Lui Moeller\Date and Time Signed: 09/10/22 16:09 [id number] NoteOrthopaedic Surgery Outpatient Visit Note Encounter Date: [...] incisional issues. 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.XXXA) [facility] Other Evaluation + Plan note No data available for this section [facility] [place] Evaluation noteNo assessment information available [facility] Work Phone: [facility] general Narrative - Reported* Type Description Date Medical History arthritis Surgical History pyloniadal cyst Surgical History both knee Surgical History breast reduction Surgical History tubal ligation Surgical History Total hip replacement Hospitalization History see above surg hx [facility] Other Hisrhsi general Narrative - Reported* Type Description Date Medical History arthritis Medical History GERD Surgical History pyloniadal cyst Surgical History both knee Surgical History breast reduction Surgical History tubal ligation Surgical History Total hip replacement Hospitalization History see above surg hx [facility] Other Hospital Discharge instructions No data available for this section [facility] [place] Progress note No data available for this section General Surgery [place] Summary Purpose Family History Relationship Condition Age at Onset Recorded Date/T griselda father Unknown Heart disease Unknown family member Unknown mother Diabetes mellitus Unknown Unknown Advance Directives No Advanced Directives Records FoundNo Advanced Directives Records FoundNo Advanced Directives Records FoundNo Advanced Directives Records FoundNo Advanced Directives Records Found Additional Source Comments INFORMATION SOURCE (unrecogn ized section and content) DATE CREATED AUTHOR 10/25/2021 [facility] DATE CREATED AUTHOR AUTHOR'S ORGANIZ ATION 05/17/2022 [facility] DATE CREATED AUTHOR AUTHOR'S ORGANIZ ATION 10/10/2022 [facility] DATE CREATED AUTHOR AUTHOR'S ORGANIZ ATION 10/10/2022 [facility] DATE CREATED AUTHOR AUTHOR'S ORGANIZ ATION 01/28/2024 [facility] EPIC REASON FOR VISIT (unrecogniz ed section and content) LEFT LEG SPIDER BITE, GOT BI T YESTERDAY AND IS GETTING WORSEHEAD COLD , HEADACHE, COUGH Patient Care team informatio n (unrecognized section and content) Team Status: Active Member Role Status Dates Aretha Brewster MD Primary Care Provider Active Team Status: Inactive Member Role Status Dates Aretha Brewster MD Primary Care Provider Active Start: March 09, 2024 End: March 09, 2024 Gordy Matthew MD Attending Provider Active St art: March 09, 2024 End: March 09, 2024 Goals (unrecognized section and content) Goals may be documented in a n alternate section FOR RECORDS PERTAINING TO PATIENTS WHO ARE [...] BE BASED ON THE PRIMARY CLINICAL RECORDS. [facility]. provides no warranty or guarantee of the accuracy or completeness of information in this document.
== END 2024-03-11 08:48 | disposition home or self-care (01) ==
LOC: LAB 08:48 → RAD 08:50
PROVIDERS: PCP Family Medicine; Visit Provider Internal Medicine Rheumatology
DX: R59.1 Generalized enlarged lymph nodes (principal); R70.0 Elevated erythrocyte sedimentation rate
CPT/HCPCS: 71046

== ENCOUNTER 2024-05-04 09:33 | Outpatient (OUT) | payer MEDICARE, SELFPAY ==
--- NOTE | 2024-05-04 09:37 | MM_ITS ---
Patient Name: MERCEDES EAGLE MR#: [id number] : 1955 Exam Date: 05/04/2024 Ordering Doctor: DR Myron Brewster . RADIOLOGY REPORT PROCEDURE: MM TOMOSYNTHESIS SCREENING BI COMPARISON: MG MAMM SCREEN 3D ARCELIA CAD, 04/23/2022. MM TOMOSYNTHESIS SCREENING BI, 04/27/2023. INDICATIONS: Screening Calculator Name NCI Breast Cancer Risk Assessment Tool 5 Year Breast Cancer Risk Not Reported. Lifetime Breast Cancer Risk Not Reported. Personal Breast Cancer No Personal Ovarian Cancer No Treatments None Family Cancers None LOCATION: [facility] BREAST COMPOSITION: There are scattered areas of fibroglandular density. FINDINGS: DIAGNOSTIC CATEGORY 1--NEGATIVE. NO CHANGE FROM COMPARISON ASSESSMENT. Scattered benign-appearing calcifications are present. Scattered benign-appearing lymph nodes are present. RIGHT BREAST: No significant suspicious finding. LEFT BREAST: No significant suspicious finding. RECOMMENDATIONS: ROUTINE MAMMOGRAM AND CLINICAL EVALUATION IN 12 MONTHS. PLEASE NOTE: A NORMAL MAMMOGRAM DOES NOT EXCLUDE THE POSSIBILITY OF BREAST CANCER. A CLINICALLY SUSPICIOUS PALPABLE LUMP SHOULD BE BIOPSIED. Dictated by: Aren Newby MD on 05/04/2024 at 10:57 Approved by: Aren Newby MD on 05/04/2024 at 10:58
--- OUTSIDE RECORDS SUMMARY | 2024-05-04 09:46 | XMS_ITS | CCD ---
Author Organization [facility] Providers Care Community Relations Assistant Name Role Phone Olivia Dean Unavailable TIMMY [...] Unavailable MD Aretha Brewster Primary Care Provider MD Gordy Matthew Attending Provider [phone] Gordy Matthew Admitting Unavailable Gordy Matthew Attending Unavailable Aretha Brewster Primary Care Unavailable Allergies Allergy Classification Reported Allergen(s) Allergy Type Date of Onset Reaction(s) Facility (4 sources) Erythromycin; Translations: [erythromycin] Drug Allergy GI upset [facility] (6 sources) Latex; Translations: [LATEX] Propensity to adverse reactions 2 Inflammatory dermatosis (disorder) [facility] (3 sources) Penicillin G Drug Allergy 3 anaphylaxis [facility] (3 sources) Penicillins; Translations: [PENICILLINS] Propensity to adverse reactions to drug (disorder) 2 Anaphylaxis (disorder) [facility] (4 sources) ERYTHROMYCIN BASE; Translations: [ERYTHROMYCIN BASE] Propensity to adverse reactions to drug (disorder) 2 GI upset [facility] (1 source) natural latex rubber Drug allergy (disorder) 3 [facility] Repository (1 source) Penicillin Drug Allergy [facility] Rep[facility] (1 source) Latex Drug allergy (disorder) 3 [facility] Repository (1 source) Penicillin Drug Allergy 3 [facility] Repository Medications Current Medications Medication Drug Class(es) [...] 1.5 mg/ml oral solution (1 source) Uncompetitive A-kgzksb-H-aspartat e 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, Sigma-1 Agonist Start: 06-14-2023 take 10 mL by mouth every eight hours [place] DM 7.5-7.5 MG/5ML 10 mL Orally every [...] tablet by mouth once daily Vitamin D3 1999 intl units oral Tab 50 mcg, Oral, [...] Osteoarthritis 08-29-2022 Chronic Other aftercare (1 source) group home (current) use of aspirin; Translations: [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 EXAMINER CURRENT USE OF ASPIRIN] Onset: 10-02-2022 Episodic Other connective tissue disease (2 sources) Presence of left artificial hip joint; Translations: [Presence of left artificial hip joint] Onset: 05-15-2022 Chronic Other hematologic conditions (1 source) Elevated erythrocyte sedimentation rate; Translations: [Elevated erythrocyte sedimentation rate] Onset: 03-09-2024 Episodic Other nutritional; endocrine; and metabolic disorders (1 [...] Episodic Other aftercare (1 source) 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 [facility] Comment on above: Result Comment: Nega tive <1:80 Borderline 1:80 Positive >1:80 ICAP nomenclature: AC-[id number] For more information about Hep-2 cell patterns use ANApatterns.org, the official website for the International Consensus on Antinuclear Antibody (BIGG) Patterns (ICAP). Performed at: - [facility] [id number] Vertical Borer: Jasiel Key PhD, Phone: [phone] Performed By: #### C RP, CK, CBC, CMP, T4F, ESR, TSH3, ADDONUAPLUS #### [address] #### SPE, KARUNA,URINE, BIGG, HBCAB, ALDOLASE, RPR W RFX, HCV RX PCR, UPE RAND, HBSAB, QUANT TB, CHROMATIN, HBSAG #### [facility] , Alanine aminotransferase [En zymatic activity/volume] in Serum or PlasmaOrdered By: Gordy Matthew on 03-09-2024 ALT [Catalytic activity/Vol] 15 U/L Normal 7-52 [facility] Comment on above: Performed By: #### C RP, CK, CBC, CMP, T4F, ESR, TSH3, ADDONUAPLUS #### [facility] [address] [place] [address] #### SPE, KARUNA,URINE, BIGG, HBCAB, ALDOLASE, RPR W RFX, HCV RX PCR, UPE RAND, HBSAB, QUANT TB, CHROMATIN, HBSAG #### [facility] , Albumin [Mass/volume] in Ser um or Plasma by Bromocresol green (BCG) dye binding methoOrdered By: Gordy Matthew on 03-09-2024 Albumin BCG dye [Mass/Vol] 4.2 g/dL 3.5-5.7 [facility] Aldolaseon 03-09-2024 Aldolase 3.6 U/L Normal 3.3-10.3 [facility] Comment on above: Result Comment: Perf ormed at: CB - [facility] [address] [id number] Vertical Borer: Jasiel Key PhD, Phone: [phone] PERFORMED BY: [place] [address] PATHOLOGIST CELLOPHANE PRESS OPERATOR JOCELYN EDGE M.D. Performed By: #### C RP, CK, CBC, CMP, T4F, ESR, TSH3, ADDONUAPLUS #### [facility] [address] [place] [address] [place] #### SPE, KARUNA,URINE, BIGG, HBCAB, ALDOLASE, RPR W RFX, HCV RX PCR, UPE RAND, HBSAB, QUANT TB, CHROMATIN, HBSAG #### [facility] , Alkaline phosphatase [Enzyma tic activity/volume] in Serum or PlasmaOrdered By: Gordy Matthew on 03-09-2024 ALP [Catalytic activity/Vol] 77 U/L Normal 34-104 [facility] Comment on above: Performed By: #### C RP, CK, CBC, CMP, T4F, ESR, TSH3, ADDONUAPLUS #### [address] #### SPE, KARUNA,URINE, BIGG, HBCAB, ALDOLASE, RPR W RFX, HCV RX PCR, UPE RAND, HBSAB, QUANT TB, CHROMATIN, HBSAG #### [facility] , Aspartate aminotransferase [ Enzymatic activity/volume] in Serum or PlasmaOrdered By: Gordy Matthew on 03-09-2024 AST [Catalytic activity/Vol] 13 U/L Normal 13-39 [facility] Comment on above: Performed By: #### C RP, CK, CBC, CMP, T4F, ESR, TSH3, ADDONUAPLUS #### [facility] [address] [place] [address] [place] #### SPE, KARUNA,URINE, BIGG, HBCAB, ALDOLASE, RPR W RFX, HCV RX PCR, UPE RAND, HBSAB, QUANT TB, CHROMATIN, HBSAG #### [facility] , Automated basophil %Ordered By: Gordy Matthew on 03-09-2024 Basophils/100 WBC (Bld) 0.5 % Normal . [facility] Comment on above: Performed By: #### C RP, CK, CBC, CMP, T4F, ESR, TSH3, ADDONUAPLUS #### [place] [address] [place] #### SPE, KARUNA,URINE, BIGG, HBCAB, ALDOLASE, RPR W RFX, HCV RX PCR, UPE RAND, HBSAB, QUANT TB, CHROMATIN, HBSAG #### [facility] , Automated basophil countOrde red By: Gordy Matthew on 03-09-2024 Basophils (Bld) [#/Vol] 0.1 10*3/uL Normal 0.0-0.2 [facility] Comment on above: Performed By: #### C RP, CK, CBC, CMP, T4F, ESR, TSH3, ADDONUAPLUS #### [facility] [address] [place] [address] #### SPE, KARUNA,URINE, BIGG, HBCAB, ALDOLASE, RPR W RFX, HCV RX PCR, UPE RAND, HBSAB, QUANT TB, CHROMATIN, HBSAG #### [facility] , Automated blood monocyte cou ntOrdered By: Gordy Matthew on 03-09-2024 Monocytes (Bld) [#/Vol] 1.0 10*3/uL High 0.0-0.8 [facility] Comment on above: Performed By: #### C RP, CK, CBC, CMP, T4F, ESR, TSH3, ADDONUAPLUS #### [address] #### SPE, KARUNA,URINE, BIGG, HBCAB, ALDOLASE, RPR W RFX, HCV RX PCR, UPE RAND, HBSAB, QUANT TB, CHROMATIN, HBSAG #### [facility] , Automated eosinophil %Ordere d By: Gordy Matthew on 03-09-2024 Eosinophils/100 WBC (Bld) 0.4 % Normal . [facility] Comment on above: Performed By: #### C RP, CK, CBC, CMP, T4F, ESR, TSH3, ADDONUAPLUS #### [facility] [address] [place] [address] [place] #### SPE, KARUNA,URINE, BIGG, HBCAB, ALDOLASE, RPR W RFX, HCV RX PCR, UPE RAND, HBSAB, QUANT TB, CHROMATIN, HBSAG #### [facility] , Automated eosinophil countOr dered By: Gordy Matthew on 03-09-2024 Eosinophils (Bld) [#/Vol] 0.0 10*3/uL Normal 0.0-0.45 [facility] Comment on above: Performed By: #### C RP, CK, CBC, CMP, T4F, ESR, TSH3, ADDONUAPLUS #### [facility] [address] [place] [address] [place] #### SPE, KARUNA,URINE, BIGG, HBCAB, ALDOLASE, RPR W RFX, HCV RX PCR, UPE RAND, HBSAB, QUANT TB, CHROMATIN, HBSAG #### [facility] , Automated monocyte %Ordered By: Gordy Vipul on 03-09-2024 Monocytes/100 WBC (Bld) 8.5 % Normal . [facility] Comment on above: Performed By: #### C RP, CK, CBC, CMP, T4F, ESR, TSH3, ADDONUAPLUS #### [facility] [address] [place] [address] [place] #### SPE, KARUNA,URINE, BIGG, HBCAB, ALDOLASE, RPR W RFX, HCV RX PCR, UPE RAND, HBSAB, QUANT TB, CHROMATIN, HBSAG #### [facility] , Automated neutrophil %Ordere d By: Gordy Matthew on 03-09-2024 Neutrophils/100 WBC (Bld) 66.2 % Normal . [facility] Comment on above: Performed By: #### C RP, CK, CBC, CMP, T4F, ESR, TSH3, ADDONUAPLUS #### [facility] [address] [place] [address] [place] #### SPE, KARUNA,URINE, BIGG, HBCAB, ALDOLASE, RPR W RFX, HCV RX PCR, UPE RAND, HBSAB, QUANT TB, CHROMATIN, HBSAG #### [facility] , Bacteria [Presence] in Urine by AutomatedOrdered By: Gordy Matthew on 03-09-2024 Bacteria Auto Ql (U) Rare [HPF] None Seen [facility] Bilirubin Test strip Ql (U)O rdered By: Gordy Matthew on 03-09-2024 Bilirubin Ql (U) Negative Negative [facility] Bilirubin.total [Mass/volume ] in Serum or PlasmaOrdered By: Gordy Matthew on 03-09-2024 Bilirubin [Mass/Vol] 0.4 mg/dL Normal 0.3-1.0 [facility] Comment on above: Performed By: #### C RP, CK, CBC, CMP, T4F, ESR, TSH3, ADDONUAPLUS #### [facility] [address] [place] [address] #### SPE, KARUNA,URINE, BIGG, HBCAB, ALDOLASE, RPR W RFX, HCV RX PCR, UPE RAND, HBSAB, QUANT TB, CHROMATIN, HBSAG #### [facility] , C reactive protein [Mass/vol ume] in Serum or PlasmaOrdered By: Gordy Matthew on 03-09-2024 CRP [Mass/Vol] < 0.5 mg/dL 0.0-0.5 [facility] C-Reactive Proteinon 024 CRP [Mass/Vol] mg/L Normal 0.0-0.5 [facility] Comment on above: Performed By: #### C RP, CK, CBC, CMP, T4F, ESR, TSH3, ADDONUAPLUS #### [place] [address] [place] #### SPE, KARUNA,URINE, BIGG, HBCAB, ALDOLASE, RPR W RFX, HCV RX PCR, UPE RAND, HBSAB, QUANT TB, CHROMATIN, HBSAG #### [facility] , Calcium [Mass/volume] in Ser um or PlasmaOrdered By: Gordy Matthew on 03-09-2024 Calcium [Mass/Vol] 10.6 mg/dL High 8.6-10.3 [facility] Comment on above: Performed By: #### C RP, CK, CBC, CMP, T4F, ESR, TSH3, ADDONUAPLUS #### [facility] [address] [place] [address] [place] #### SPE, KARUNA,URINE, BIGG, HBCAB, ALDOLASE, RPR W RFX, HCV RX PCR, UPE RAND, HBSAB, QUANT TB, CHROMATIN, HBSAG #### [facility] , Carbon dioxide, total [Moles /volume] in Serum or PlasmaOrdered By: Gordy Matthew on 03-09-2024 CO2 [Moles/Vol] 30.4 mmol/L Normal 21.0-31.0 [facility] Comment on above: Performed By: #### C RP, CK, CBC, CMP, T4F, ESR, TSH3, ADDONUAPLUS #### [facility] [address] [place] [address] [place] #### SPE, KARUNA,URINE, BIGG, HBCAB, ALDOLASE, RPR W RFX, HCV RX PCR, UPE RAND, HBSAB, QUANT TB, CHROMATIN, HBSAG #### [facility] , Chloride [Moles/volume] in S billy or PlasmaOrdered By: Gordy Matthew on 03-09-2024 Chloride [Moles/Vol] 103 mmol/L Normal 98-107 [facility] Comment on above: Performed By: #### C RP, CK, CBC, CMP, T4F, ESR, TSH3, ADDONUAPLUS #### [facility] [address] [place] [address] [place] #### SPE, KARUNA,URINE, BIGG, HBCAB, ALDOLASE, RPR W RFX, HCV RX PCR, UPE RAND, HBSAB, QUANT TB, CHROMATIN, HBSAG #### [facility] , Chromatin Antibodyon 024 Chromatin Antibody <0.2 Normal 0.0-0.9 [facility] Comment on above: Result Comment: Perf ormed at: CB - [facility] [address] [id number] Vertical Borer: Jasiel Key PhD, Phone: [phone] Performed By: #### C RP, CK, CBC, CMP, T4F, ESR, TSH3, ADDONUAPLUS #### [facility] [address] [place] [address] [place] #### SPE, KARUNA,URINE, BIGG, HBCAB, ALDOLASE, RPR W RFX, HCV RX PCR, UPE RAND, HBSAB, QUANT TB, CHROMATIN, HBSAG #### [facility] , Color of Urine by AutoOrdere d By: Gordy Matthew on 03-09-2024 Color (U) Light-yellow Normal Yellow [facility] Comment on above: Order Comment: Name Collection Type:: Clean-Voided Midstream Performed By: #### C RP, CK, CBC, CMP, T4F, ESR, TSH3, ADDONUAPLUS #### [address] #### SPE, KARUNA,URINE, BIGG, HBCAB, ALDOLASE, RPR W RFX, HCV RX PCR, UPE RAND, HBSAB, QUANT TB, CHROMATIN, HBSAG #### [facility] , Complete Blood Count Auto Di ffon 03-09-2024 Mean Corpuscular HGB Conc 33.0 g/dL Normal 32.0-35.0 [facility] Comment on above: Performed By: #### C RP, CK, CBC, CMP, T4F, ESR, TSH3, ADDONUAPLUS #### [address] #### SPE, KARUNA,URINE, BIGG, HBCAB, ALDOLASE, RPR W RFX, HCV RX PCR, UPE RAND, HBSAB, QUANT TB, CHROMATIN, HBSAG #### [facility] , NRBC% 0.1 /100{WBC} Normal 0-0.5 [facility] Comment on above: Performed By: #### C RP, CK, CBC, CMP, T4F, ESR, TSH3, ADDONUAPLUS #### [place] [address] [place] #### SPE, KARUNA,URINE, BIGG, HBCAB, ALDOLASE, RPR W RFX, HCV RX PCR, UPE RAND, HBSAB, QUANT TB, CHROMATIN, HBSAG #### [facility] , Comprehensive Metabolic Pane erika 03-09-2024 Albumin [Mass/Vol] 4.2 g/dL Normal 3.5-5.7 [facility] Comment on above: Performed By: #### C RP, CK, CBC, CMP, T4F, ESR, TSH3, ADDONUAPLUS #### [place] [address] [place] #### SPE, KARUNA,URINE, BIGG, HBCAB, ALDOLASE, RPR W RFX, HCV RX PCR, UPE RAND, HBSAB, QUANT TB, CHROMATIN, HBSAG #### [facility] , GFR/1.73 sq M.predicted MDRD (S/P/Bld) [Vol rate/Area] mL/min/{1.73_m2} Normal [facility] Comment on above: Performed By: #### C RP, CK, CBC, CMP, T4F, ESR, TSH3, ADDONUAPLUS #### [address] #### SPE, KARUNA,URINE, BIGG, HBCAB, ALDOLASE, RPR W RFX, HCV RX PCR, UPE RAND, HBSAB, QUANT TB, CHROMATIN, HBSAG #### [facility] , Creatine kinase [Enzymatic a ctivity/volume] in Serum or PlasmaOrdered By: Gordy Matthew on 03-09-2024 CK [Catalytic activity/Vol] 25 U/L Low 30-223 [facility] Comment on above: Result Comment: PERF ORMED BY: [place] [address] PATHOLOGIST CELLOPHANE PRESS OPERATOR JOCELYN EDGE M.D. Performed By: #### C RP, CK, CBC, CMP, T4F, ESR, TSH3, ADDONUAPLUS #### [address] #### SPE, KARUNA,URINE, BIGG, HBCAB, ALDOLASE, RPR W RFX, HCV RX PCR, UPE RAND, HBSAB, QUANT TB, CHROMATIN, HBSAG #### [facility] , Creatinine [Mass/volume] in Serum or PlasmaOrdered By: Gordy Matthew on 03-09-2024 Creatinine [Mass/Vol] 0.80 mg/dL Normal 0.60-1.20 [facility] Comment on above: Performed By: #### C RP, CK, CBC, CMP, T4F, ESR, TSH3, ADDONUAPLUS #### [address] #### SPE, KARUNA,URINE, BIGG, HBCAB, ALDOLASE, RPR W RFX, HCV RX PCR, UPE RAND, HBSAB, QUANT TB, CHROMATIN, HBSAG #### [facility] , Dipstick and Microscopicon 0 03-09-2024 Bacteria,Urine Rare Normal None Seen [facility] Comment on above: Order Comment: Name Collection Type:: Clean-Voided Midstream Performed By: #### C RP, CK, CBC, CMP, T4F, ESR, TSH3, ADDONUAPLUS #### [address] #### SPE, KARUNA,URINE, BIGG, HBCAB, ALDOLASE, RPR W RFX, HCV RX PCR, UPE RAND, HBSAB, QUANT TB, CHROMATIN, HBSAG #### [facility] , Bilirubin,Urine Negative Normal Negative [facility] Comment on above: Order Comment: Name Collection Type:: Clean-Voided Midstream Performed By: #### C RP, CK, CBC, CMP, T4F, ESR, TSH3, ADDONUAPLUS #### [address] #### SPE, KARUNA,URINE, BIGG, HBCAB, ALDOLASE, RPR W RFX, HCV RX PCR, UPE RAND, HBSAB, QUANT TB, CHROMATIN, HBSAG #### [facility] , Glucose Ql (U) Normal Normal Normal [facility] Comment on above: Order Comment: Name Collection Type:: Clean-Voided Midstream Performed By: #### C RP, CK, CBC, CMP, T4F, ESR, TSH3, ADDONUAPLUS #### [address] #### SPE, KARUNA,URINE, BIGG, HBCAB, ALDOLASE, RPR W RFX, HCV RX PCR, UPE RAND, HBSAB, QUANT TB, CHROMATIN, HBSAG #### [facility] , Hyaline Casts,Urine None Normal 0-8 [facility] Comment on above: Order Comment: Name Collection Type:: Clean-Voided Midstream Performed By: #### C RP, CK, CBC, CMP, T4F, ESR, TSH3, ADDONUAPLUS #### [address] #### SPE, KARUNA,URINE, BIGG, HBCAB, ALDOLASE, RPR W RFX, HCV RX PCR, UPE RAND, HBSAB, QUANT TB, CHROMATIN, HBSAG #### [facility] , Mucus,Urine Rare Normal [facility] Comment on above: Order Comment: Name Collection Type:: Clean-Voided Midstream Result Comment: PERF ORMED BY: [place] [address] PATHOLOGIST CELLOPHANE PRESS OPERATOR JOCELYN EDGE M.D. Performed By: #### C RP, CK, CBC, CMP, T4F, ESR, TSH3, ADDONUAPLUS #### [address] #### SPE, KARUNA,URINE, BIGG, HBCAB, ALDOLASE, RPR W RFX, HCV RX PCR, UPE RAND, HBSAB, QUANT TB, CHROMATIN, HBSAG #### [facility] , Nitrite,Urine Negative Normal Negative [facility] Comment on above: Order Comment: Name Collection Type:: Clean-Voided Midstream Performed By: #### C RP, CK, CBC, CMP, T4F, ESR, TSH3, ADDONUAPLUS #### [address] #### SPE, KARUNA,URINE, BIGG, HBCAB, ALDOLASE, RPR W RFX, HCV RX PCR, UPE RAND, HBSAB, QUANT TB, CHROMATIN, HBSAG #### [facility] , Occult Blood,Urine Negative Normal Negative [facility] Comment on above: Order Comment: Name Collection Type:: Clean-Voided Midstream Performed By: #### C RP, CK, CBC, CMP, T4F, ESR, TSH3, ADDONUAPLUS #### [address] #### SPE, KARUNA,URINE, BIGG, HBCAB, ALDOLASE, RPR W RFX, HCV RX PCR, UPE RAND, HBSAB, QUANT TB, CHROMATIN, HBSAG #### [facility] , Protein,Urine Negative Normal Negative [facility] Comment on above: Order Comment: Name Collection Type:: Clean-Voided Midstream Performed By: #### C RP, CK, CBC, CMP, T4F, ESR, TSH3, ADDONUAPLUS #### [address] #### SPE, KARUNA,URINE, BIGG, HBCAB, ALDOLASE, RPR W RFX, HCV RX PCR, UPE RAND, HBSAB, QUANT TB, CHROMATIN, HBSAG #### [facility] , RBC,Urine 1-2 Normal 0-4 [facility] Comment on above: Order Comment: Name Collection Type:: Clean-Voided Midstream Performed By: #### C RP, CK, CBC, CMP, T4F, ESR, TSH3, ADDONUAPLUS #### [address] #### SPE, KARUNA,URINE, BIGG, HBCAB, ALDOLASE, RPR W RFX, HCV RX PCR, UPE RAND, HBSAB, QUANT TB, CHROMATIN, HBSAG #### [facility] , Specificy [place],Urine 1.013 Normal 1.001-1.030 [facility] Comment on above: Order Comment: Name Collection Type:: Clean-Voided Midstream Performed By: #### C RP, CK, CBC, CMP, T4F, ESR, TSH3, ADDONUAPLUS #### [place] [address] [place] #### SPE, KARUNA,URINE, BIGG, HBCAB, ALDOLASE, RPR W RFX, HCV RX PCR, UPE RAND, HBSAB, QUANT TB, CHROMATIN, HBSAG #### [facility] , Urobilinogen,Urine Normal Normal Normal [facility] Comment on above: Order Comment: Name Collection Type:: Clean-Voided Midstream Performed By: #### C RP, CK, CBC, CMP, T4F, ESR, TSH3, ADDONUAPLUS #### [address] #### SPE, KARUNA,URINE, BIGG, HBCAB, ALDOLASE, RPR W RFX, HCV RX PCR, UPE RAND, HBSAB, QUANT TB, CHROMATIN, HBSAG #### [facility] , WBC,Urine 3-4 Normal 0-4 [facility] Comment on above: Order Comment: Name Collection Type:: Clean-Voided Midstream Performed By: #### C RP, CK, CBC, CMP, T4F, ESR, TSH3, ADDONUAPLUS #### [address] #### SPE, KARUNA,URINE, BIGG, HBCAB, ALDOLASE, RPR W RFX, HCV RX PCR, UPE RAND, HBSAB, QUANT TB, CHROMATIN, HBSAG #### [facility] , Epithelial cells.squamous [# /area] in Urine sediment by Automated countOrdered By: Gordy Matthew on 03-09-2024 Epithelial cells.squamous Auto (Urine sed) [#/Area] N/A [facility] Erythrocyte Sedimentation Ra conchita 03-09-2024 ESR (Bld) [Velocity] 25 mm/h Normal 0-29 [facility] Comment on above: Result Comment: PERF ORMED BY: [place] [address] PATHOLOGIST CELLOPHANE PRESS OPERATOR JOCELYN EDGE M.D. Performed By: #### C RP, CK, CBC, CMP, T4F, ESR, TSH3, ADDONUAPLUS #### [address] #### SPE, KARUNA,URINE, BIGG, HBCAB, ALDOLASE, RPR W RFX, HCV RX PCR, UPE RAND, HBSAB, QUANT TB, CHROMATIN, HBSAG #### [facility] , Erythrocyte distribution wid th [Ratio] by Automated countOrdered By: Gordy Farooqrow on 03-09-2024 Erythrocyte distribution width (RBC) [Ratio] 14.1 % Normal 11.9-15.3 [facility] Comment on above: Performed By: #### C RP, CK, CBC, CMP, T4F, ESR, TSH3, ADDONUAPLUS #### [facility] [address] [place] [address] #### SPE, KARUNA,URINE, BIGG, HBCAB, ALDOLASE, RPR W RFX, HCV RX PCR, UPE RAND, HBSAB, QUANT TB, CHROMATIN, HBSAG #### [facility] , Erythrocyte sedimentation ra te by Photometric methodOrdered By: Gordylarry Matthew on 03-09-2024 ESR Photometric method (Bld) [Velocity] 25 mm/hr 0-29 [facility] Erythrocytes [#/area] in Uri ne sediment by Automated countOrdered By: Gordy Matthew on 03-09-2024 RBC Auto (Urine sed) [#/Area] 1-2 [HPF] 0-4 [facility] Erythrocytes [#/volume] in B lood by Automated countOrdered By: Gordy Matthew on 03-09-2024 RBC (Bld) [#/Vol] 4.71 10*6/uL Normal 3.60-5.00 [facility] Comment on above: Performed By: #### C RP, CK, CBC, CMP, T4F, ESR, TSH3, ADDONUAPLUS #### [facility] [address] [place] [address] [place] #### SPE, KARUNA,URINE, BIGG, HBCAB, ALDOLASE, RPR W RFX, HCV RX PCR, UPE RAND, HBSAB, QUANT TB, CHROMATIN, HBSAG #### [facility] , Glucose [Mass/volume] in Ser um or PlasmaOrdered By: Gordy Matthew on 03-09-2024 Glucose [Mass/Vol] 100 mg/dL Normal 70-100 [facility] Comment on above: ADA recommended refe rence rangeRandom Glucose Reference Range is dependent on time and content of last meal. Glucose of more than 200 mg/dL in a nonstressed, ambulatory subject supports the diagnosis of Diabetes Mellitus. Result Comment: [place] Glucose Reference Range is dependent on time and content of last meal. Glucose of more than 200 mg/dL in a nonstressed, ambulatory subject supports the diagnosis of Diabetes Mellitus. ADA recommended reference range Performed By: #### C RP, CK, CBC, CMP, T4F, ESR, TSH3, ADDONUAPLUS #### [address] #### SPE, KARUNA,URINE, BIGG, HBCAB, ALDOLASE, RPR W RFX, HCV RX PCR, UPE RAND, HBSAB, QUANT TB, CHROMATIN, HBSAG #### [facility] , Glucose [Mass/volume] in Uri ne by Test stripOrdered By: Gordy Matthew on 03-09-2024 Glucose Test strip (U) [Mass/Vol] Normal mg/dL Normal [facility] Hematocrit [Volume Fraction] of Blood by Automated countOrdered By: Gordy Matthew on 03-09-2024 Hematocrit (Bld) [Volume fraction] 41.1 % Normal 34.0-46.4 [facility] Comment on above: Performed By: #### C RP, CK, CBC, CMP, T4F, ESR, TSH3, ADDONUAPLUS #### [place] [address] [place] #### SPE, KARUNA,URINE, BIGG, HBCAB, ALDOLASE, RPR W RFX, HCV RX PCR, UPE RAND, HBSAB, QUANT TB, CHROMATIN, HBSAG #### [facility] , Hemoglobin Test strip Ql (U) Ordered By: Gordy Matthew on 03-09-2024 Hemoglobin Ql (U) Negative Negative [facility] Hemoglobin [Mass/volume] in BloodOrdered By: Gordy Matthew on 03-09-2024 Hemoglobin (Bld) [Mass/Vol] 13.6 g/dL Normal 11.8-15.4 [facility] Comment on above: Performed By: #### C RP, CK, CBC, CMP, T4F, ESR, TSH3, ADDONUAPLUS #### [address] #### SPE, KARUNA,URINE, BIGG, HBCAB, ALDOLASE, RPR W RFX, HCV RX PCR, UPE RAND, HBSAB, QUANT TB, CHROMATIN, HBSAG #### [facility] , Hep C Ab wRfx to Qnt PCRon 0 03-09-2024 Hepatitis C Virus Antibody Non-Reactive Normal Non Reactive [facility] Comment on above: Performed By: #### C RP, CK, CBC, CMP, T4F, ESR, TSH3, ADDONUAPLUS #### [address] #### SPE, KARUNA,URINE, BIGG, HBCAB, ALDOLASE, RPR W RFX, HCV RX PCR, UPE RAND, HBSAB, QUANT TB, CHROMATIN, HBSAG #### [facility] , Interpretation Hepatitis C Comment Normal . [facility] Comment on above: Result Comment: Not infected with HCV unless early or acute infection is suspected (which may be delayed in an immunocompromised individual), or other evidence exists to indicate HCV infection. Performed By: #### C RP, CK, CBC, CMP, T4F, ESR, TSH3, ADDONUAPLUS #### [address] #### SPE, KARUNA,URINE, BIGG, HBCAB, ALDOLASE, RPR W RFX, HCV RX PCR, UPE RAND, HBSAB, QUANT TB, CHROMATIN, HBSAG #### [facility] , Hepatitis B Core Antibodyon 03-09-2024 Hepatitis B Core Antibody Negative Normal Negative [facility] Comment on above: Result Comment: Perf ormed at: - [facility] [address] [id number] Vertical Borer: Jasiel Key PhD, Phone: [phone] Performed By: #### C RP, CK, CBC, CMP, T4F, ESR, TSH3, ADDONUAPLUS #### [address] #### SPE, KARUNA,URINE, BIGG, HBCAB, ALDOLASE, RPR W RFX, HCV RX PCR, UPE RAND, HBSAB, QUANT TB, CHROMATIN, HBSAG #### [facility] , Hepatitis B Surface Antibody on 03-09-2024 Hepatitis B Surface Antibody Non-Reactive Normal . [facility] Comment on above: Result Comment: Non Reactive: Not immune to HBV infection. Equivocal: Unable to determine if anti-HBs is present at levels consistent with immunity. Reactive: Anti-HBs concentration detected at greater than 10 mIU/mL. Individual is considered to be immune to infection with HBV. Performed By: #### C RP, CK, CBC, CMP, T4F, ESR, TSH3, ADDONUAPLUS #### [address] #### SPE, KARUNA,URINE, BIGG, HBCAB, ALDOLASE, RPR W RFX, HCV RX PCR, UPE RAND, HBSAB, QUANT TB, CHROMATIN, HBSAG #### [facility] , Hepatitis B Surface Antigeno n 03-09-2024 HBsAg Screen Negative Normal Negative [facility] Comment on above: Result Comment: PERF ORMED BY: [place] [address] PATHOLOGIST CELLOPHANE PRESS OPERATOR JOCELYN EDGE M.D. Performed By: #### C RP, CK, CBC, CMP, T4F, ESR, TSH3, ADDONUAPLUS #### [address] #### SPE, KARUNA,URINE, BIGG, HBCAB, ALDOLASE, RPR W RFX, HCV RX PCR, UPE RAND, HBSAB, QUANT TB, CHROMATIN, HBSAG #### [facility] , Hyaline casts [#/area] in Ur ine sediment by Automated countOrdered By: Gordy Matthew on 03-09-2024 Hyaline casts Auto (Urine sed) [#/Area] None [LPF] 0-8 [facility] Immunofixation, (KARUNA), Urine on 03-09-2024 Immunofixation, (KARUNA), Urine Comment Normal . [facility] Comment on above: Result Comment: No m onoclonality detected. Performed at: [facility] [address] [id number] Vertical Borer: Jasiel Key PhD, Phone: [phone] Performed By: #### C RP, CK, CBC, CMP, T4F, ESR, TSH3, ADDONUAPLUS #### [address] #### SPE, KARUNA,URINE, BIGG, HBCAB, ALDOLASE, RPR W RFX, HCV RX PCR, UPE RAND, HBSAB, QUANT TB, CHROMATIN, HBSAG #### [facility] , Ketones [Presence] in Urine by Test stripOrdered By: Gordy Matthew on 03-09-2024 Ketones Ql (U) Negative Normal Negative [facility] Comment on above: Order Comment: Name Collection Type:: Clean-Voided Midstream Performed By: #### C RP, CK, CBC, CMP, T4F, ESR, TSH3, ADDONUAPLUS #### [place] [address] [place] #### SPE, KARUNA,URINE, BIGG, HBCAB, ALDOLASE, RPR W RFX, HCV RX PCR, UPE RAND, HBSAB, QUANT TB, CHROMATIN, HBSAG #### [facility] , Leukocyte esterase [Presence ] in Urine by Test stripOrdered By: Gordy Matthew on 03-09-2024 Leukocyte esterase Test strip Ql (U) Negative Normal Negative [facility] Comment on above: Order Comment: Name Collection Type:: Clean-Voided Midstream Performed By: #### C RP, CK, CBC, CMP, T4F, ESR, TSH3, ADDONUAPLUS #### [place] [address] [place] #### SPE, KARUNA,URINE, BIGG, HBCAB, ALDOLASE, RPR W RFX, HCV RX PCR, UPE RAND, HBSAB, QUANT TB, CHROMATIN, HBSAG #### [facility] , Leukocytes [#/area] in Urine sediment by Automated countOrdered By: Gordy Matthew on 03-09-2024 WBC Auto (Urine sed) [#/Area] 3-4 [HPF] 0-4 [facility] Leukocytes [#/volume] correc [place] for nucleated erythrocytes in Blood by Automated counOrdered By: Gordy Matthew on 03-09-2024 WBC corrected for nucl RBC Auto (Bld) [#/Vol] 11.4 10*3/uL 3.8-11.6 [facility] Leukocytes [#/volume] in Blo od by Automated countOrdered By: Gordy Matthew on 03-09-2024 WBC (Bld) [#/Vol] 11.4 10*3/uL Normal 3.8-11.6 [facility] Comment on above: Performed By: #### C RP, CK, CBC, CMP, T4F, ESR, TSH3, ADDONUAPLUS #### [facility] [address] [place] [address] [place] #### SPE, KARUNA,URINE, BIGG, HBCAB, ALDOLASE, RPR W RFX, HCV RX PCR, UPE RAND, HBSAB, QUANT TB, CHROMATIN, HBSAG #### [facility] , Lymphocytes [#/volume] in Bl ood by Automated countOrdered By: Gordy Farooqrow on 03-09-2024 Lymphocytes (Bld) [#/Vol] 2.8 10*3/uL Normal 1.00-4.8 [facility] Comment on above: Performed By: #### C RP, CK, CBC, CMP, T4F, ESR, TSH3, ADDONUAPLUS #### [facility] [address] [place] [address] [place] #### SPE, KARUNA,URINE, BIGG, HBCAB, ALDOLASE, RPR W RFX, HCV RX PCR, UPE RAND, HBSAB, QUANT TB, CHROMATIN, HBSAG #### [facility] , Lymphocytes/100 leukocytes i n Blood by Automated countOrdered By: Gordy Vipul on 03-09-2024 Lymphocytes/100 WBC (Bld) 24.4 % Normal . [facility] Comment on above: Performed By: #### C RP, CK, CBC, CMP, T4F, ESR, TSH3, ADDONUAPLUS #### [facility] [address] [place] [address] #### SPE, KARUNA,URINE, BIGG, HBCAB, ALDOLASE, RPR W RFX, HCV RX PCR, UPE RAND, HBSAB, QUANT TB, CHROMATIN, HBSAG #### [facility] , MCH [Entitic mass] by Automa dakotah countOrdered By: Gordy Matthew on 03-09-2024 MCH (RBC) [Entitic mass] 28.8 pg Normal 24.7-34.3 [facility] Comment on above: Performed By: #### C RP, CK, CBC, CMP, T4F, ESR, TSH3, ADDONUAPLUS #### [facility] [address] [place] [address] [place] #### SPE, KARUNA,URINE, BIGG, HBCAB, ALDOLASE, RPR W RFX, HCV RX PCR, UPE RAND, HBSAB, QUANT TB, CHROMATIN, HBSAG #### [facility] , MCHC Auto (RBC) [Mass/Vol]Or dered By: Gordy Matthew on 03-09-2024 MCHC (RBC) [Mass/Vol] 33.0 g/dL 32.0-35.0 [facility] MCV [Entitic volume] by Auto mated countOrdered By: Gordy Farooqrow on 03-09-2024 MCV (RBC) [Entitic vol] 87.3 fL Normal 80-100 [facility] Comment on above: Performed By: #### C RP, CK, CBC, CMP, T4F, ESR, TSH3, ADDONUAPLUS #### [facility] [address] [place] [address] [place] #### SPE, KARUNA,URINE, BIGG, HBCAB, ALDOLASE, RPR W RFX, HCV RX PCR, UPE RAND, HBSAB, QUANT TB, CHROMATIN, HBSAG #### [facility] , Mucus [Presence] in Urine by AutomatedOrdered By: Gordy Vipul on 03-09-2024 Mucus Auto Ql (U) Rare [LPF] [facility] Neutrophils [#/volume] in Bl ood by Automated countOrdered By: Gordy Vipul on 03-09-2024 Neutrophils (Bld) [#/Vol] 7.5 10*3/uL Normal 1.8-7.7 [facility] Comment on above: Performed By: #### C RP, CK, CBC, CMP, T4F, ESR, TSH3, ADDONUAPLUS #### [facility] [address] [place] [address] #### SPE, KARUNA,URINE, BIGG, HBCAB, ALDOLASE, RPR W RFX, HCV RX PCR, UPE RAND, HBSAB, QUANT TB, CHROMATIN, HBSAG #### [facility] , Nitrite Test strip Ql (U)Ord ered By: Gordylarry Matthew on 03-09-2024 Nitrite Ql (U) Negative Negative [facility] No Panel InformationOrdered By: Gordy Matthew on 03-09-2024 Estimated GFR (CKD-EPI) > 60.0 mL/Min [facility] Creatinine Clearance (Chem N/A [facility] Nucleated erythrocytes [Pres ence] in Blood by Automated countOrdered By: Gordy Matthew on 03-09-2024 Nucleated RBC Auto Ql (Bld) 0.1 /100{WBC} 0-0.5 [facility] Platelet mean volume [Entiti c volume] in Blood by Automated countOrdered By: Gordy Matthew on 03-09-2024 Platelet mean volume (Bld) [Entitic vol] 8.3 fL Normal 6.3-10.7 [facility] Comment on above: Performed By: #### C RP, CK, CBC, CMP, T4F, ESR, TSH3, ADDONUAPLUS #### [facility] [address] [place] [address] [place] #### SPE, KARUNA,URINE, BIGG, HBCAB, ALDOLASE, RPR W RFX, HCV RX PCR, UPE RAND, HBSAB, QUANT TB, CHROMATIN, HBSAG #### [facility] , Platelets [#/volume] in Bloo d by Automated countOrdered By: Gordy Matthew on 03-09-2024 Platelets (Bld) [#/Vol] 332 10*3/uL Normal 150-450 [facility] Comment on above: Performed By: #### C RP, CK, CBC, CMP, T4F, ESR, TSH3, ADDONUAPLUS #### [facility] [address] [place] [address] #### SPE, KARUNA,URINE, BIGG, HBCAB, ALDOLASE, RPR W RFX, HCV RX PCR, UPE RAND, HBSAB, QUANT TB, CHROMATIN, HBSAG #### [facility] , Potassium [Moles/volume] in Serum or PlasmaOrdered By: Gordy Matthew on 03-09-2024 Potassium [Moles/Vol] 4.2 mmol/L Normal 3.5-5.1 [facility] Comment on above: Performed By: #### C RP, CK, CBC, CMP, T4F, ESR, TSH3, ADDONUAPLUS #### [facility] [address] [place] [address] #### SPE, KARUNA,URINE, BIGG, HBCAB, ALDOLASE, RPR W RFX, HCV RX PCR, UPE RAND, HBSAB, QUANT TB, CHROMATIN, HBSAG #### [facility] , Protein Electro, Random Urin krysten 03-09-2024 Albumin, Urine 15.5 % Normal . [facility] Comment on above: Performed By: #### C RP, CK, CBC, CMP, T4F, ESR, TSH3, ADDONUAPLUS #### [facility] [address] [place] [address] [place] #### SPE, KARUNA,URINE, BIGG, HBCAB, ALDOLASE, RPR W RFX, HCV RX PCR, UPE RAND, HBSAB, QUANT TB, CHROMATIN, HBSAG #### [facility] , Ysxja-2-Lbjeejke, Urine 5.6 % Normal . Divya carey [facility] Comment on above: Performed By: #### C RP, CK, CBC, CMP, T4F, ESR, TSH3, ADDONUAPLUS #### [address] #### SPE, KARUNA,URINE, BIGG, HBCAB, ALDOLASE, RPR W RFX, HCV RX PCR, UPE RAND, HBSAB, QUANT TB, CHROMATIN, HBSAG #### [facility] , Syvxf-9-Tvvwdmul, Urine 21.4 % Normal . T aurelio [facility] Comment on above: Performed By: #### C RP, CK, CBC, CMP, T4F, ESR, TSH3, ADDONUAPLUS #### [address] #### SPE, KARUNA,URINE, BIGG, HBCAB, ALDOLASE, RPR W RFX, HCV RX PCR, UPE RAND, HBSAB, QUANT TB, CHROMATIN, HBSAG #### [facility] , Beta Globulin, Urine 31.2 % Normal . [facility] Comment on above: Performed By: #### C RP, CK, CBC, CMP, T4F, ESR, TSH3, ADDONUAPLUS #### [place] [address] [place] #### SPE, KARUNA,URINE, BIGG, HBCAB, ALDOLASE, RPR W RFX, HCV RX PCR, UPE RAND, HBSAB, QUANT TB, CHROMATIN, HBSAG #### [facility] , Gamma Globulin, Urine 26.4 % Normal . [facility] Comment on above: Performed By: #### C RP, CK, CBC, CMP, T4F, ESR, TSH3, ADDONUAPLUS #### [place] [address] [place] #### SPE, KARUNA,URINE, BIGG, HBCAB, ALDOLASE, RPR W RFX, HCV RX PCR, UPE RAND, HBSAB, QUANT TB, CHROMATIN, HBSAG #### [facility] , M-Leonid % Not Observed Normal Not Observed [facility] Comment on above: Performed By: #### C RP, CK, CBC, CMP, T4F, ESR, TSH3, ADDONUAPLUS #### [address] #### SPE, KARUNA,URINE, BIGG, HBCAB, ALDOLASE, RPR W RFX, HCV RX PCR, UPE RAND, HBSAB, QUANT TB, CHROMATIN, HBSAG #### [facility] , Please Note: Comment Normal . [facility] Comment on above: Result Comment: Prot ein electrophoresis scan will follow via computer, mail, or sanding supervisor delivery. PERFORMED BY: [place] [address] PATHOLOGIST CELLOPHANE PRESS OPERATOR JOCELYN EDGE M.D. Performed By: #### C RP, CK, CBC, CMP, T4F, ESR, TSH3, ADDONUAPLUS #### [address] #### SPE, KARUNA,URINE, BIGG, HBCAB, ALDOLASE, RPR W RFX, HCV RX PCR, UPE RAND, HBSAB, QUANT TB, CHROMATIN, HBSAG #### [facility] , Protein (U) [Mass/Vol] 4.1 mg/dL Normal Not Estab. [facility] Comment on above: Performed By: #### C RP, CK, CBC, CMP, T4F, ESR, TSH3, ADDONUAPLUS #### [place] [address] [place] #### SPE, KARUNA,URINE, BIGG, HBCAB, ALDOLASE, RPR W RFX, HCV RX PCR, UPE RAND, HBSAB, QUANT TB, CHROMATIN, HBSAG #### [facility] , Protein Electrophoresis, Ser umon 03-09-2024 Albumin [Mass/Vol] 3.8 g/dL Normal 2.9-4.4 [facility] Comment on above: Performed By: #### C RP, CK, CBC, CMP, T4F, ESR, TSH3, ADDONUAPLUS #### [facility] [address] #### SPE, KARUNA,URINE, BIGG, HBCAB, ALDOLASE, RPR W RFX, HCV RX PCR, UPE RAND, HBSAB, QUANT TB, CHROMATIN, HBSAG #### [facility] , Albumin/Globulin [Mass ratio] 1.2 {ratio} Normal 0.7-1.7 [facility] Comment on above: Performed By: #### C RP, CK, CBC, CMP, T4F, ESR, TSH3, ADDONUAPLUS #### [address] #### SPE, KARUNA,URINE, BIGG, HBCAB, ALDOLASE, RPR W RFX, HCV RX PCR, UPE RAND, HBSAB, QUANT TB, CHROMATIN, HBSAG #### [facility] , Iynph-0-Kulzwvxg 0.2 g/dL Normal 0.0-0.4 [facility] Comment on above: Performed By: #### C RP, CK, CBC, CMP, T4F, ESR, TSH3, ADDONUAPLUS #### [address] #### SPE, KARUNA,URINE, BIGG, HBCAB, ALDOLASE, RPR W RFX, HCV RX PCR, UPE RAND, HBSAB, QUANT TB, CHROMATIN, HBSAG #### [facility] , Jzsxf-7-Gnyzasgh 0.7 g/dL Normal 0.4-1.0 [facility] Comment on above: Performed By: #### C RP, CK, CBC, CMP, T4F, ESR, TSH3, ADDONUAPLUS #### [place] [address] [place] #### SPE, KARUNA,URINE, BIGG, HBCAB, ALDOLASE, RPR W RFX, HCV RX PCR, UPE RAND, HBSAB, QUANT TB, CHROMATIN, HBSAG #### [facility] , Beta Globulin 1.1 g/dL Normal 0.7-1.3 [facility] Comment on above: Performed By: #### C RP, CK, CBC, CMP, T4F, ESR, TSH3, ADDONUAPLUS #### [address] #### SPE, KARUNA,URINE, BIGG, HBCAB, ALDOLASE, RPR W RFX, HCV RX PCR, UPE RAND, HBSAB, QUANT TB, CHROMATIN, HBSAG #### [facility] , Gamma Globulin 1.3 g/dL Normal 0.4-1.8 [facility] Comment on above: Performed By: #### C RP, CK, CBC, CMP, T4F, ESR, TSH3, ADDONUAPLUS #### [address] #### SPE, KARUNA,URINE, BIGG, HBCAB, ALDOLASE, RPR W RFX, HCV RX PCR, UPE RAND, HBSAB, QUANT TB, CHROMATIN, HBSAG #### [facility] , Globulin (S) [Mass/Vol] 3.3 g/dL Normal 2.2-3.9 [facility] Comment on above: Performed By: #### C RP, CK, CBC, CMP, T4F, ESR, TSH3, ADDONUAPLUS #### [address] #### SPE, KARUNA,URINE, BIGG, HBCAB, ALDOLASE, RPR W RFX, HCV RX PCR, UPE RAND, HBSAB, QUANT TB, CHROMATIN, HBSAG #### [facility] , M-Leonid Not Observed Normal Not Observed [facility] Comment on above: Performed By: #### C RP, CK, CBC, CMP, T4F, ESR, TSH3, ADDONUAPLUS #### [place] [address] [place] #### SPE, KARUNA,URINE, BIGG, HBCAB, ALDOLASE, RPR W RFX, HCV RX PCR, UPE RAND, HBSAB, QUANT TB, CHROMATIN, HBSAG #### [facility] , SPE-Note Comment Normal . [facility] Comment on above: Result Comment: Prot ein electrophoresis scan will follow via computer, mail, or sanding supervisor delivery. Performed at: [address] [id number] Vertical Borer: Jasiel Key PhD, Phone: [phone] Performed By: #### C RP, CK, CBC, CMP, T4F, ESR, TSH3, ADDONUAPLUS #### [address] #### SPE, KARUNA,URINE, BIGG, HBCAB, ALDOLASE, RPR W RFX, HCV RX PCR, UPE RAND, HBSAB, QUANT TB, CHROMATIN, HBSAG #### [facility] , Protein Test strip (U) [Mass /Vol]Ordered By: Gordy aMtthew on 03-09-2024 Protein (U) [Mass/Vol] Negative Negative [facility] Protein [Mass/volume] in Ser um or PlasmaOrdered By: Gordy Matthew on 03-09-2024 Protein [Mass/Vol] 7.1 g/dL Normal 6.0-8.5 [place] [facility] Comment on above: Performed By: #### C RP, CK, CBC, CMP, T4F, ESR, TSH3, ADDONUAPLUS #### [address] #### SPE, KARUNA,URINE, BIGG, HBCAB, ALDOLASE, RPR W RFX, HCV RX PCR, UPE RAND, HBSAB, QUANT TB, CHROMATIN, HBSAG #### [facility] , QuantiFERON TB Goldon 2023 QFTB Criteria Comment Normal . [facility] Comment on above: Result Comment: Emerson tiFERON-TB Gold Plus is a qualitative indirect test for M tuberculosis infection (including disease) and is intended for use in conjunction with risk assessment, radiography, and other medical and diagnostic evaluations. The QuantiFERON-TB Gold Plus result is determined by subtracting the Nil value from either TB antigen (Ag) value. The Mitogen tube serves as a control for the test. Performed By: #### C RP, CK, CBC, CMP, T4F, ESR, TSH3, ADDONUAPLUS #### [place] [address] [place] #### SPE, KARUNA,URINE, BIGG, HBCAB, ALDOLASE, RPR W RFX, HCV RX PCR, UPE RAND, HBSAB, QUANT TB, CHROMATIN, HBSAG #### [facility] , Quant TB Ag Value 0.00 Normal . [facility] Comment on above: Performed By: #### C RP, CK, CBC, CMP, T4F, ESR, TSH3, ADDONUAPLUS #### [place] [address] [place] #### SPE, KARUNA,URINE, BIGG, HBCAB, ALDOLASE, RPR W RFX, HCV RX PCR, UPE RAND, HBSAB, QUANT TB, CHROMATIN, HBSAG #### [facility] , Quant TB Gold Plus Negative Normal Negative [facility] Comment on above: Result Comment: No r esponse to M tuberculosis antigens detected. Infection with M tuberculosis is unlikely, but high risk individuals should be considered for additional testing (ATS/IDSA/CDC Clinical Practice Guidelines, 2017). The reference range is an Antigen minus Nil result of <0.35 IU/mL. The specimen received for QuantiFERON testing was incubated by the ordering institution. Specific procedures outlined in our Directory of Services and in the package insert for the QuantiFERON Gold (In Tube) test must be followed to enable for proper stimulation of cells for the production of interferon gamma. Chemiluminescence immunoassay methodology Performed at: [facility] [id number] Vertical Borer: Jasiel Key PhD, Phone: [phone] PERFORMED BY: [place] [address] PATHOLOGIST CELLOPHANE PRESS OPERATOR JOCELYN EDGE M.D. Performed By: #### C RP, CK, CBC, CMP, T4F, ESR, TSH3, ADDONUAPLUS #### [place] [address] [place] #### SPE, KARUNA,URINE, BIGG, HBCAB, ALDOLASE, RPR W RFX, HCV RX PCR, UPE RAND, HBSAB, QUANT TB, CHROMATIN, HBSAG #### [facility] , Quant TB2 Ag Value 0.00 Normal . [facility] Comment on above: Performed By: #### C RP, CK, CBC, CMP, T4F, ESR, TSH3, ADDONUAPLUS #### [facility] [address] #### SPE, KARUNA,URINE, BIGG, HBCAB, ALDOLASE, RPR W RFX, HCV RX PCR, UPE RAND, HBSAB, QUANT TB, CHROMATIN, HBSAG #### [facility] , Quantiferon Nil Value 0.00 Normal . [facility] Comment on above: Performed By: #### C RP, CK, CBC, CMP, T4F, ESR, TSH3, ADDONUAPLUS #### [facility] [address] #### SPE, KARUNA,URINE, BIGG, HBCAB, ALDOLASE, RPR W RFX, HCV RX PCR, UPE RAND, HBSAB, QUANT TB, CHROMATIN, HBSAG #### [facility] , Quantiferon TB Mitogen >10.00 Normal . [facility] Comment on above: Performed By: #### C RP, CK, CBC, CMP, T4F, ESR, TSH3, ADDONUAPLUS #### [facility] [address] #### SPE, KARUNA,URINE, BIGG, HBCAB, ALDOLASE, RPR W RFX, HCV RX PCR, UPE RAND, HBSAB, QUANT TB, CHROMATIN, HBSAG #### [facility] , RPR w/rfx to Quant TP Abson 03-09-2024 RPR, Rfx Quant RPR Non-Reactive Normal Non Reactive [facility] Comment on above: Result Comment: Perf ormed at: - [facility] [address] [id number] Vertical Borer: Jasiel Key PhD, Phone: [phone] PERFORMED BY: [place] [address] PATHOLOGIST CELLOPHANE PRESS OPERATOR JOCELYN EDGE M.D. Performed By: #### C RP, CK, CBC, CMP, T4F, ESR, TSH3, ADDONUAPLUS #### [address] #### SPE, KARUNA,URINE, BIGG, HBCAB, ALDOLASE, RPR W RFX, HCV RX PCR, UPE RAND, HBSAB, QUANT TB, CHROMATIN, HBSAG #### [facility] , Serum globulin measurement b y calculation (mass/volume)Ordered By: Gordy Matthew on 03-09-2024 Globulin (S) [Mass/Vol] 2.9 g/dL Normal [facility] Comment on above: Performed By: #### C RP, CK, CBC, CMP, T4F, ESR, TSH3, ADDONUAPLUS #### [facility] [address] [place] [address] [place] #### SPE, KARUNA,URINE, BIGG, HBCAB, ALDOLASE, RPR W RFX, HCV RX PCR, UPE RAND, HBSAB, QUANT TB, CHROMATIN, HBSAG #### [facility] , Serum or plasma albumin/glob ulin mass ratioOrdered By: Gordy Matthew on 03-09-2024 Albumin/Globulin [Mass ratio] 1.4 {ratio} [facility] Comment on above: Performed By: #### C RP, CK, CBC, CMP, T4F, ESR, TSH3, ADDONUAPLUS #### [place] [address] [place] #### SPE, KARUNA,URINE, BIGG, HBCAB, ALDOLASE, RPR W RFX, HCV RX PCR, UPE RAND, HBSAB, QUANT TB, CHROMATIN, HBSAG #### [facility] , Serum or plasma anion gap de terminationOrdered By: Gordy Matthew on 03-09-2024 Anion gap [Moles/Vol] 9.8 mmol/L Normal 6.0-15.0 [facility] Comment on above: Performed By: #### C RP, CK, CBC, CMP, T4F, ESR, TSH3, ADDONUAPLUS #### [address] #### SPE, KARUNA,URINE, BIGG, HBCAB, ALDOLASE, RPR W RFX, HCV RX PCR, UPE RAND, HBSAB, QUANT TB, CHROMATIN, HBSAG #### [facility] , Sodium [Moles/volume] in Ser um or PlasmaOrdered By: Gordy Farooqrow on 03-09-2024 Sodium [Moles/Vol] 139 mmol/L Normal 136-145 [facility] Comment on above: Performed By: #### C RP, CK, CBC, CMP, T4F, ESR, TSH3, ADDONUAPLUS #### [address] #### SPE, KARUNA,URINE, BIGG, HBCAB, ALDOLASE, RPR W RFX, HCV RX PCR, UPE RAND, HBSAB, QUANT TB, CHROMATIN, HBSAG #### [facility] , Specific gravity Test strip (U) [Rel density]Ordered By: Gordy Matthew on 03-09-2024 Specific gravity (U) [Rel density] 1.013 1.001-1.030 [facility] Thyrotropin [Units/volume] i n Serum or PlasmaOrdered By: Gordy Matthew on 03-09-2024 TSH Qn 2.78 m[IU]/L Normal 0.45-5.33 [facility] Comment on above: Result Comment: PERF ORMED BY: [place] [address] PATHOLOGIST CELLOPHANE PRESS OPERATOR JOCELYN EDGE M.D. Performed By: #### C RP, CK, CBC, CMP, T4F, ESR, TSH3, ADDONUAPLUS #### [place] [address] [place] #### SPE, KARUNA,URINE, BIGG, HBCAB, ALDOLASE, RPR W RFX, HCV RX PCR, UPE RAND, HBSAB, QUANT TB, CHROMATIN, HBSAG #### [facility] , Thyroxine (T4) free [Mass/vo lume] in Serum or PlasmaOrdered By: Gordy Matthew on 03-09-2024 Free T4 [Mass/Vol] 0.78 ng/dL Normal 0.61-1.12 [facility] Comment on above: Performed By: #### C RP, CK, CBC, CMP, T4F, ESR, TSH3, ADDONUAPLUS #### [facility] [address] [place] [address] #### SPE, KARUNA,URINE, BIGG, HBCAB, ALDOLASE, RPR W RFX, HCV RX PCR, UPE RAND, HBSAB, QUANT TB, CHROMATIN, HBSAG #### [facility] , Urea nitrogen [Mass/volume] in Serum or PlasmaOrdered By: Gordy Matthew on 03-09-2024 Urea nitrogen [Mass/Vol] 15 mg/dL Normal 01-06 [facility] Comment on above: Performed By: #### C RP, CK, CBC, CMP, T4F, ESR, TSH3, ADDONUAPLUS #### [facility] [address] [place] [address] [place] #### SPE, KARUNA,URINE, BIGG, HBCAB, ALDOLASE, RPR W RFX, HCV RX PCR, UPE RAND, HBSAB, QUANT TB, CHROMATIN, HBSAG #### [facility] , Urine appearanceOrdered By: Gordy Matthew on 03-09-2024 Appearance (U) Cloudy Critically abnormal Clear [facility] Comment on above: Order Comment: Name Collection Type:: Clean-Voided Midstream Performed By: #### C RP, CK, CBC, CMP, T4F, ESR, TSH3, ADDONUAPLUS #### [facility] [address] [place] [address] [place] #### SPE, KARUNA,URINE, BIGG, HBCAB, ALDOLASE, RPR W RFX, HCV RX PCR, UPE RAND, HBSAB, QUANT TB, CHROMATIN, HBSAG #### [facility] , Urobilinogen Test strip (U) [Mass/Vol]Ordered By: Gordy Matthew on 03-09-2024 Urobilinogen (U) [Mass/Vol] Normal mg/dL Normal [facility] pH of Urine by Test stripOrd ered By: Gordy Matthew on 03-09-2024 pH (U) 7.0 [pH] Normal 5.0-9.0 [facility] Comment on above: Order Comment: Name Collection Type:: Clean-Voided Midstream Performed By: #### C RP, CK, CBC, CMP, T4F, ESR, TSH3, ADDONUAPLUS #### [facility] [address] #### SPE, KARUNA,URINE, BIGG, HBCAB, ALDOLASE, RPR W RFX, HCV RX PCR, UPE RAND, HBSAB, QUANT TB, CHROMATIN, HBSAG #### [facility] , COVID/FLU/RSV RT-PCRon 06-14 SARS-CoV-2 (COVID-19) RNA VIVEK+probe Ql (Unsp spec) Negative [employer] Other COVID/FLU/RSV RT-PCR Negative [employer] Other COVID/FLU/RSV RT-PCR Positive [employer] Other Outside Colonoscopyon 2022 Outside Colonoscopy [id number] 0#[id number] Normal [facility] Reminderson 10-02-2022 Reminders - From: Kisha Samuel LPN To: GSN - Clinical; Sent: 10/02/2022 08:43:18 EDT Show up: 08/31/2032 07:00:00 EDT Subject: colonoscopy recall Due Date/Time: 10/01/2032 07:00:00 EDT Reminder/Recall Patient is due for screening colonoscopy 10/01/2032. Normal [facility] Consent for Procedure/Surger yon 09-11-2022 Consent for Procedure/Surgery [id number] #1.00CD:127 [facility] Facesheeton 09-11-2022 Facesheet [id number] #1.00CD:127 [facility] Pre-Certification Formon Pre-Certification Form [id number] 1#1.00CD:127 [facility] Ambulatory Visit Summaryon 0 09-10-2022 Ambulatory [...] reflux disease) Osteoarthritis Seasonal allergic rhinitis Normal [facility] Physician Referralon 023 Physician Referral [id number] #1.00CD:127 Normal [facility] Follow-Upon 05-15-2022 Follow-Up [id number] Brie Eagle 1955 F Date Provider Department Center 05/15/2022 TIMMY ROMAN MP ORTHO MPORTHO Family History Problem Relation Age of Onset Diabetes Mother Heart disease Mother Arthritis Mother No Known Problems Father Family Status - Relation Status Age at Mother Father Level of Service:48230 MA OFFICE/OUTPATIENT ESTABLISHED LOW MDM 20-29 MIN Reason for Visit and Comments: Follow-up [133484] - Yearly follow up Normal [facility] XR DEXA BONE DENSITYon 04-28 XR [...] RAYA Date: 2022-04-28 17:04 Normal [facility] MG MAMM SCREEN 3D ARCELIA CADon 04-23-2022 MG MAMM SCREEN 3D ARCELIA CAD Patient: BRIE EAGLE Exam Date: 04/23/2022 : 1955 Gender:F Ordering : DR ARETHA BREWSTER . Admission #: [id number] Family : Order #: [id number] CLICK HERE TO VIEW EXAM RADIOLOGY REPORT PROCEDURE: MAMMOGRAM SCREENING 3D BILATERAL CAD COMPARISON: MG MAMM SCREEN 3D ARCELIA CAD, 04/17/2021. INDICATIONS: Screening mammography Calculator Name NCI Breast Cancer Risk Assessment Tool 5 Year Breast Cancer Risk Not Reported. Lifetime Breast Cancer Risk Not Reported. Personal Breast Cancer No Personal Ovarian Cancer No Treatments None Family Cancers None LOCATION: [facility] BREAST COMPOSITION: Scattered areas fibroglandular density. [...] MD on 04/23/2022 at 13:10 Normal [facility] NM STRESS/REST MULTIon 04-10 NM STRESS/REST MULTI Patient: BRIE EAGLE Exam Date: 04/10/2022 : 1955 Gender:F Ordering : DR ARETHA BREWSTER . Admission #: [id number] Family : Order #: [id number] CLICK HERE TO VIEW EXAM RADIOLOGY REPORT [...] M.D. on 04/10/2022 at 13:53 Normal [facility] AMYLASEon 03-24-2022 Amylase [Catalytic activity/Vol] 51 U/L Normal 25-115 [facility] Comment on above: Performed By: #### A MY, LIPA, CMADM, HSTROPN #### [facility] Laboratory [address] [place] [address] Dr. Christos Richardson CARDIAC MONA ADMITon 022 CK [Catalytic activity/Vol] 67 U/L Normal 26-192 [facility] Comment on above: Performed By: #### A MY, LIPA, CMADM, HSTROPN #### [facility] [address] [place] [address] Dr. Christos Richardson CK.MB [Mass/Vol] 0.93 ng/mL Normal <=3.60 [facility] Comment on above: Performed By: #### A MY, LIPA, CMADM, HSTROPN #### [facility] [address] [address] [address] Christos Richardson GAYATHRI 32 ng/mL Normal 9-82 [facility] Comment on above: Performed By: #### A MY, LIPA, CMADM, HSTROPN #### [facility] [address] [place] [address] Dr. Christos Richardson CBC AUTO DIFFon 03-24-2022 BASO # 0.1 103/ul Normal 0.0-0.1 [facility] Comment on above: Performed By: #### C BC ####[facility] [address] [id number]. Christos Richardson Basophils/100 WBC (Bld) 0.7 % Normal 0.2-2.0 [facility] Comment on above: Performed By: #### C BC ####[facility] [address] [place], [place] [address]Dr. Christos Richardson EO # 0.1 103/ul Normal 0.0-0.7 [facility] Comment on above: Performed By: #### C BC ####[facility] [address] [place], [place] [address]Dr. Christos Richardson Eosinophils/100 WBC (Bld) 0.8 % Critically low 0.9-7.0 [facility] Comment on above: Performed By: #### C BC ####[facility] T[address] [place], [place] [address]Dr. Christos Richardson Erythrocyte distribution width (RBC) [Ratio] 13.4 % Normal 11.0-15.0 [facility] Comment on above: Performed By: #### C BC ####[facility] [address] [place], [place] [address]Dr. Christos Richardson Hematocrit (Bld) [Volume fraction] 40.9 % Normal 36.0-48.0 [facility] Comment on above: Performed By: #### C BC ####[facility] [address] [place], [place] [address]Dr. Christos Richardson Hemoglobin (Bld) [Mass/Vol] 13.3 g/dL Normal 12.0-16.0 [facility] Comment on above: Performed By: #### C BC ####[facility] [address] [place], [place] [address]Dr. Christos Richardson IG # 0.02 10e3/ul Normal 0.00-0.03 [facility] Comment on above: Performed By: #### C BC ####[facility] [address] [place], [place] [address]Dr. Christos Richardson IG % 0.3 % Normal 0.0-0.5 [facility] Comment on above: Performed By: #### C BC ####[facility] [address] [id number]. Christos Richardson LYMPH # 2.3 103/ul Normal 1.2-3.8 [facility] Comment on above: Performed By: #### C BC ####[facility] [address] [place] [id number]. Christos Richardosn Lymphocytes/100 WBC (Bld) 32.6 % Normal 20.5-60.0 [facility] Comment on above: Performed By: #### C BC ####[facility] [address] [place] [phone]. Christos Richardson MANUAL DIFF REQ NO Normal [facility] Comment on above: Performed By: #### C BC ####[facility] [address] [place] [phone]. Christos Richardson MCH (RBC) [Entitic mass] 29.2 pg Normal 26.7-34.0 [facility] Comment on above: Performed By: #### C BC ####[facility] [address] [place] [phone]. Christos Richardson MCHC (RBC) [Mass/Vol] 32.5 g/dL Normal 29.9-35.2 [facility] Comment on above: Performed By: #### C BC ####[facility] [address] [phone]. Christos Richardson MCV (RBC) [Entitic vol] 89.9 fL Normal 81.0-99.0 [facility] Comment on above: Performed By: #### C BC ####[facility] [address] [place] [phone]. Christos Richardson MONO # 1.0 103/ul Critically high 0.3-0.8 [facility] Comment on above: Performed By: #### C BC ####[facility] [address] [place] [phone]. Christos Richardson Monocytes/100 WBC (Bld) 14.2 % Critically high 1.7-12. 0 [facility] Comment on above: Performed By: #### C BC ####[facility] [address] [place] [phone]. Christos Richardson NEUT # 3.7 103/ul Normal 1.4-6.5 [facility] Comment on above: Performed By: #### C BC ####[facility] [address] [place] [phone]. Christos Richardson Neutrophils/100 WBC (Bld) 51.4 % Normal 43.0-75.0 [facility] Comment on above: Performed By: #### C BC ####[facility] [address] [place] [phone]. Christos Richardson Platelet mean volume (Bld) [Entitic vol] 9.7 fL Normal 9.5-13.5 [facility] Comment on above: Performed By: #### C BC ####[facility] [address] [address]Dr. Christos Richardson PLT 271 103/ul Normal 150-450 [facility] Comment on above: Performed By: #### C BC ####[facility] [address] [place] [phone]. Christos Richardson RBC 4.55 106/ul Normal 4.20-5.40 [facility] Comment on above: Performed By: #### C BC ####[facility] [address] [place] [phone]. Christos Richardson WBC 7.1 103/ul Normal 4.0-11.0 [facility] Comment on above: Performed By: #### C BC ####[facility] [address] [place] [phone] Richardson LIPASEon 03-24-2022 Lipase [Catalytic activity/Vol] 104.0 U/L Normal 73.0-393.0 [facility] Comment on above: Performed By: #### A MY, LIPA, CMADM, HSTROPN #### [facility] [address] [place], [place] [address] Dr. Christos Richardson TROPONIN, HIGH SENSITIVITYon 03-24-2022 HSTROP 6.6 pg/mL Normal 4.0-51.3 [facility] Comment on above: Result Comment: CUT- OFF POINTS HAVE BEEN ESTABLISHED BASED ON THE FOURTH UNIVERSAL DEFINITIONS OF MYOCARDIAL INFARCTION. THE UPPER REFERENCE LIMIT (URL) OF TROPONIN, DEFINED THE 99TH PERCENTILE OF cTnI DISTRIBUTION IN A REFERENCE POPULATION, HAS BEEN CONFIRMED THE DECISION THRESHOLD FOR [place] DIAGNOSIS. Performed By: #### H STROPN ####[facility] [address] [place], [place] [address]QoDr. Christos Richardson HSTROP 6.3 pg/mL Normal 4.0-51.3 [facility] Comment on above: Result Comment: CUT- OFF POINTS HAVE BEEN ESTABLISHED BASED ON THE FOURTH UNIVERSAL DEFINITIONS OF MYOCARDIAL INFARCTION. THE UPPER REFERENCE LIMIT (URL) OF TROPONIN, DEFINED THE 99TH PERCENTILE OF cTnI DISTRIBUTION IN A REFERENCE POPULATION, HAS BEEN CONFIRMED THE DECISION THRESHOLD FOR [place] DIAGNOSIS. Performed By: #### A MY, LIPA, CMADM, HSTROPN #### [facility] [address] [address] [address] Christos Richardson XR CHEST 1 Von [...] ULISES CALDERON Date: 2022-03-24 13:53 Normal [facility] INSULINon 01-09-2022 Insulin 10.4 uIU/mL Normal 2.6-24.9 [facility] Comment on above: Performed By: #### I NSULIN #### [facility] [address] [address] [address] Christos Richardson CBC AUTO DIFFon 01-08-2022 BASO # 0.1 103/ul Normal 0.0-0.1 [facility] Comment on above: Performed By: #### C BC #### [facility] [address] [place] [address] Dr. Christos Richardson Basophils/100 WBC (Bld) 0.8 % Normal 0.2-2.0 [facility] Comment on above: Performed By: #### C BC #### [facility] [address] [place] [address] Dr. Christos Richardson EO # 0.1 103/ul Normal 0.0-0.7 [facility] Comment on above: Performed By: #### C BC #### [facility] [address] [place] [address] Dr. Christos Richardson Eosinophils/100 WBC (Bld) 1.5 % Normal 0.9-7.0 [facility] Comment on above: Performed By: #### C BC #### [facility] [address] [place] [address] Dr. Christos Richardson Erythrocyte distribution width (RBC) [Ratio] 13.6 % Normal 11.0-15.0 [facility] Comment on above: Performed By: #### C BC #### [facility] [address] [place] [address] Dr. Christos Richardson Hematocrit (Bld) [Volume fraction] 40.4 % Normal 36.0-48.0 [facility] Comment on above: Performed By: #### C BC #### [facility] [address] [place] [address] Dr. Christos Richardson Hemoglobin (Bld) [Mass/Vol] 12.9 g/dL Normal 12.0-16.0 [facility] Comment on above: Performed By: #### C BC #### [facility] [address] [place] [address] Dr. Christos Richardson IG # 0.01 10e3/ul Normal 0.00-0.03 [facility] Comment on above: Performed By: #### C BC #### [facility] [address] [place] [address] Dr. Christos Richardson IG % 0.2 % Normal 0.0-0.5 [facility] Comment on above: Performed By: #### C BC #### [facility] [address] [address] [address] Christos Richardson LYMPH # 2.4 103/ul Normal 1.2-3.8 [facility] Comment on above: Performed By: #### C BC #### [facility] [address] [address] [address] Christos Richardson Lymphocytes/100 WBC (Bld) 39.7 % Normal 20.5-60.0 [facility] Comment on above: Performed By: #### C BC #### [facility] [address] [place] [address] Dr. Christos Richardson MANUAL DIFF REQ NO Normal [facility] Comment on above: Performed By: #### C BC #### [facility] [address] [place] [address] Dr. Christos Richardson MCH (RBC) [Entitic mass] 29.0 pg Normal 26.7-34.0 [facility] Comment on above: Performed By: #### C BC #### [facility] [address] [place] [address] Dr. Christos Richardson MCHC (RBC) [Mass/Vol] 31.9 g/dL Normal 29.9-35.2 [facility] Comment on above: Performed By: #### C BC #### [facility] [address] [place] [address] Dr. Christos Richardson MCV (RBC) [Entitic vol] 90.8 fL Normal 81.0-99.0 [facility] Comment on above: Performed By: #### C BC #### [facility] [address] [place] [address] Dr. Christos Richardson MONO # 0.8 103/ul Normal 0.3-0.8 [facility] Comment on above: Performed By: #### C BC #### [facility] [address] [place] [address] Dr. Christos Richardson Monocytes/100 WBC (Bld) 13.5 % Critically high 1.7-12. 0 [facility] Comment on above: Performed By: #### C BC #### [facility] [address] [address] [address] Christos Richardson NEUT # 2.7 103/ul Normal 1.4-6.5 [facility] Comment on above: Performed By: #### C BC #### [facility] [address] [address] [address] Christos Richardson Neutrophils/100 WBC (Bld) 44.3 % Normal 43.0-75.0 [facility] Comment on above: Performed By: #### C BC #### [facility] [address] [address] [address] Christos Richardson Platelet mean volume (Bld) [Entitic vol] 10.4 fL Normal 9.5-13.5 [facility] Comment on above: Performed By: #### C BC #### [facility] [address] [place] [address] Dr. Christos Richardson PLT 287 103/ul Normal 150-450 [facility] Comment on above: Performed By: #### C BC #### [facility] [address] [address] [address] Christos Richardson RBC 4.45 106/ul Normal 4.20-5.40 [facility] Comment on above: Performed By: #### C BC #### [facility] [address] [address] [address] Christos Richardson WBC 6.1 103/ul Normal 4.0-11.0 [facility] Comment on above: Performed By: #### C BC #### [facility] [address] [address] [address] Christos Richardson FREE THYROXINE INDEX T7on FTI 2.00 Normal 1.30-4.50 [facility] Comment on above: Performed By: #### C MP, T7, LIPID, TSH ####[facility] [address] [address]Dr. Christos Richardson T3U 35.0 % Normal 30.0-39.0 [facility] Comment on above: Performed By: #### C MP, T7, LIPID, TSH ####[facility] [address] [id number]. Christos Richardson T4 [Mass/Vol] 5.70 ug/dL Normal 4.80-13.90 [facility] Comment on above: Performed By: #### C MP, T7, LIPID, TSH ####[facility] [address] [place] [phone]. Christos Richardson GLYCOHEMOGLOBIN A1Con 2021 ADA RECOMMENDATION SEE BELOW Normal [facility] [place] [facility] Comment on above: Result Comment: ADA RECOMMENDED LIMIT 4.0 - 6.0 ADA THERAPEUTIC TARGET < 7.0 ACTION SUGGESTED > 7.0 Performed By: #### A 1C ####[facility] [address] [address]Dr. Christos Richardson Glucose [Mass/Vol] 114 mg/dL Normal [facility] [place] [facility] Comment on above: Performed By: #### A 1C ####[facility] [address] [address]Dr. Christos Richardson HbA1c (Bld) [Mass fraction] 5.6 % Normal 4.5-6.2 [facility] Comment on above: Performed By: #### A 1C ####[facility] [address] [address]Dr. Christos Richardson IRONon 01-08-2022 Iron [Mass/Vol] 100.0 ug/dL Normal 50.0-170.0 [facility] Comment on above: Performed By: #### I BLANCO ####[facility] [address] [place], [place] [address]Dr. Christos Richardson LIPID PROFILEon 01-08-2022 CHOL-HDL RATIO NORM SEE BELOW Normal [facility] Comment on above: Result Comment: 3.3 - 4.4 LOW RISK 4.4 - 7.1 AVERAGE RISK 7.1 - 11.0 MODERATE RISK >11.0 HIGH RISK Performed By: #### C MP, T7, LIPID, TSH ####[facility] [address] [address]Dr. Christos Richardson Cholesterol [Mass/Vol] 187 mg/dL Normal <=200 [facility] Comment on above: Performed By: #### C MP, T7, LIPID, TSH ####[facility] [address] [place], [place] [address]Mi. Christos Richardson Cholesterol in HDL [Mass/Vol] 63 mg/dL Critically high 40-60 [facility] Comment on above: Performed By: #### C MP, T7, LIPID, TSH ####[facility] [address] [place] [id number]. Christos Richardson Cholesterol in LDL [Mass/Vol] 110.8 mg/dL Normal [facility] Comment on above: Performed By: #### C MP, T7, LIPID, TSH ####[facility] [address] [place] [phone]. Christos Richardson Cholesterol.total/Kylee sterol in HDL [Mass ratio] 3.0 {ratio} Normal [facility] Comment on above: Performed By: #### C MP, T7, LIPID, TSH ####[facility] [address] [place] [phone]. Christos Richardson HDL NORMAL > or = 60 mg/dl - LOW CARDIOVASCULAR RISK <40 mg/dl - HIGH CARDIOVASCULAR RISK Normal [facility] Comment on above: Performed By: #### C MP, T7, LIPID, TSH ####[facility] [address] [place] [phone]. Christos Richardson LDL CALC NORMAL SEE BELOW Normal [facility] Comment on above: Result Comment: <100 mg/dl OPTIMAL 100 - 129 mg/dl NEAR OR ABOVE OPTIMAL 130 - 159 mg/dl BORDERLINE HIGH 160 - 189 mg/dl HIGH >190 mg/dl VERY HIGH Performed By: #### C MP, T7, LIPID, TSH ####[facility] [address] [place] [phone]. Christos Richardson Triglyceride [Mass/Vol] 66 mg/dL Normal <=150 T [facility] Comment on above: Performed By: #### C MP, T7, LIPID, TSH ####[facility] [address] [place] [phone]. Christos Richardson VLDL CALC 13.2 mg/dL Normal [facility] Comment on above: Performed By: #### C MP, T7, LIPID, TSH ####[facility] [address] [place] [address]Dr. Christos Ricahrdson PROF 14(COMP METB)on 022 Albumin [Mass/Vol] 3.4 g/dL Normal 3.4-5.0 [facility] Comment on above: Performed By: #### C MP, T7, LIPID, TSH ####[facility] [address] [place] [address]Dr. Christos Richardson Albumin/Globulin [Mass ratio] 0.9 {ratio} Normal [facility] Comment on above: Performed By: #### C MP, T7, LIPID, TSH ####[facility] [address] [place] [address]Dr. Christos Richardson ALP [Catalytic activity/Vol] 79 U/L Normal 46-116 [facility] Comment on above: Performed By: #### C MP, T7, LIPID, TSH ####[facility] [address] [place] [address]Dr. Christos Richardson ALT [Catalytic activity/Vol] 22 U/L Normal 14-59 [facility] Comment on above: Performed By: #### C MP, T7, LIPID, TSH ####[facility] [address] [place] [address]Dr. Christos Richardson Anion gap [Moles/Vol] 11.5 mmol/L Normal [facility] Comment on above: Performed By: #### C MP, T7, LIPID, TSH ####[facility] [address] [place] [address]Dr. Christos Richardson AST [Catalytic activity/Vol] 16 U/L Normal 15-37 [facility] Comment on above: Performed By: #### C MP, T7, LIPID, TSH ####[facility] [address] [place] [address]Dr. Christos Richardson Bilirubin [Mass/Vol] 0.3 mg/dL Normal 0.2-1.0 [facility] Comment on above: Performed By: #### C MP, T7, LIPID, TSH ####[facility] [address] [place] [address]Dr. Christos Richardson Calcium [Mass/Vol] 9.1 mg/dL Normal 8.5-10.1 [facility] [place] [facility] Comment on above: Performed By: #### C MP, T7, LIPID, TSH ####[facility] [address] [place] [address]Dr. Christos Richardson Chloride [Moles/Vol] 106 mmol/L Normal 98-107 [facility] Comment on above: Performed By: #### C MP, T7, LIPID, TSH ####[facility] [address] [place] [address]Dr. Christos Richardson CO2 [Moles/Vol] 27.7 mmol/L Normal 21.0-32.0 [facility] Comment on above: Performed By: #### C MP, T7, LIPID, TSH ####[facility] [address] [place] [address]Dr. Christos Richardson Creatinine [Mass/Vol] 0.75 mg/dL Normal 0.55-1.02 [facility] Comment on above: Performed By: #### C MP, T7, LIPID, TSH ####[facility] [address] [place] [address]Dr. Christos Richardson EGFR-AF DUTCH >60 Normal >=60 [facility] Comment on above: Performed By: #### C MP, T7, LIPID, TSH ####[facility] [address] [place] [address]Dr. Christos Richardson EGFR-NON AF DUTCH >60 Normal >=60 [facility] Comment on above: Performed By: #### C MP, T7, LIPID, TSH ####[facility] [address] [place] [address]Dr. Christos Richardson Globulin (S) [Mass/Vol] 3.9 g/dL Normal T [facility] Comment on above: Performed By: #### C MP, T7, LIPID, TSH ####[facility] [address] [place] [address]Dr. Christos Richardson Glucose [Mass/Vol] 95 mg/dL Normal 74-106 [facility] [place] [facility] Comment on above: Performed By: #### C MP, T7, LIPID, TSH ####[facility] [address] [place] [address]Dr. Christos Richardson Potassium [Moles/Vol] 4.2 mmol/L Normal 3.5-5.1 [facility] Comment on above: Performed By: #### C MP, T7, LIPID, TSH ####[facility] [id number] [place] [id number]. Christos Richardson Protein [Mass/Vol] 7.3 g/dL Normal 6.4-8.2 [facility] Comment on above: Performed By: #### C MP, T7, LIPID, TSH ####[facility] [id number] [place] [id number]. Christos Richardson Sodium [Moles/Vol] 141 mmol/L Normal 136-145 [facility] Comment on above: Performed By: #### C MP, T7, LIPID, TSH ####[facility] [id number] [place] [id number]. Christos Richardson Urea nitrogen [Mass/Vol] 15.0 mg/dL Normal 7.0-18.0 [facility] Comment on above: Performed By: #### C MP, T7, LIPID, TSH ####[facility] [id number] [place] [id number]. Christos Richardson Urea nitrogen/Creatinine [Mass ratio] 20.0 mg/mg Normal [facility] Comment on above: Performed By: #### C MP, T7, LIPID, TSH ####[facility] [id number] [place] [id number]. Christos Richardson TSHon 01-08-2022 TSH 3.880 uIU/mL Critically high 0.358-3.740 [facility] Comment on above: Performed By: #### C MP, T7, LIPID, TSH ####[facility] [id number] [place] [id number]. Christos Richardson HIP LEFT 1 OR 2 VWS WITH PEL VISon 05-29-2021 HIP LEFT 1 OR 2 VWS WITH PELVIS [facility] Department of Radiology [address] [place] [id number] Patient Name: BRIE EAGLE : 1955 Sex: F Age: Race: White Pt. Location: 84 Patient Status: D Ordered Date: 05/29/2021 1:05:00 [...] prosthesis. Electronically signed: Eder Crowder. Transcribed by: [email or web address], User Resident: EDER CROWDER Electronically Signed by: EDER CROWDER @ 05/30/2021 12:27 PM I personally read this/these film(s) with this resident Normal [facility] Comment on above: Order Comment: evalu ate Vital Signs Date Time Vital Sign Value Performing Clinician Facility 06-14-2023 09:30-0500 Body height 162.56 cm Sarah Sargent Other [facility] Other 06-14-2023 09:30-0500 Body mass index (BMI) [Ratio] 30.65 kg/m2 Sarah Sargent Other [facility] Other 06-14-2023 09:30-0500 Body temperature 98.8 [degF] Sarah Sargent Other [facility] Other 06-14-2023 09:30-0500 Body weight 81.01 kg Sarah Sargent Other [facility] Other 06-14-2023 09:30-0500 Diastolic blood pressure 67 mm[Hg] Sarah Mensahler Other [facility] Other 06-14-2023 09:30-0500 Respiratory rate 16 /min Sarah Sargent Other [facility] Other 06-14-2023 09:30-0500 SaO2% (BldA) [Mass fraction] 96 % Sarah Sargent Other [facility] Other 06-14-2023 09:30-0500 Systolic blood pressure 129 mm[Hg] Sarah Sargent Other [facility] Other 09-10-2022 15:17-0400 Blood Pressure Location Lui GAMINO [facility] 09-10-2022 15:17-0400 Diastolic blood pressure 64 mm[Hg] Lui GAMINO [facility] 09-10-2022 15:17-0400 Heart rate 72 /min Lui GAMINO [facility] 09-10-2022 15:17-0400 Respiratory rate 16 /min Lui GAMINO [facility] 09-10-2022 15:17-0400 Systolic blood pressure 138 mm[Hg] Lui GAMINO [facility] 11-12-2021 17:50-0400 Body height 162.56 cm Olivia Dean Other [facility] Other 11-12-2021 17:50-0400 Body mass index (BMI) [Ratio] 27.46 kg/m2 Olivia Dianne Other [facility] Other 11-12-2021 17:50-0400 Body temperature 97.8 [degF] Olivia Dean Other [facility] Other 11-12-2021 17:50-0400 Body weight 72.58 kg Olivia Dianne Other [facility] Other 11-12-2021 17:50-0400 Diastolic blood pressure 59 mm[Hg] Olivia Dianne Other [facility] Other 11-12-2021 17:50-0400 Respiratory rate 16 /min Olivia Dean Other [facility] Other 11-12-2021 17:50-0400 SaO2% (BldA) [Mass fraction] 98 % Olivia Dean Other [facility] Other 11-12-2021 17:50-0400 Systolic blood pressure 130 mm[Hg] Olivia Dean Other [facility] Other Encounters Encounter Date Encounter Type Care Provider Facility Start: 03-09-2024 End: 03-09-2024 Patient encounter procedure MD Aretha Brewster Work Phone: [facility] [address] Work Phone: Start: 03-09-2024 End: 03-09-2024 ambulatory MD Aretha Brewster Work Phone: [facility] Work Phone: Start: 01-27-2024 End: 01-27-2024 ambulatory EUGENIO H TIMMIS Not Available Start: 01-04-2024 End: 01-04-2024 ambulatory EUGENIO H TIMMIS Not Available Start: 09-01-2023 End: 09-01-2023 ambulatory EUGENIO H TIMMIS Not Available Start: 06-14-2023 End: 06-14-2023 ambulatory Sarah Sargent Other [facility] Other Start: 06-14-2023 Office outpatient vi sit [...] Start: 05-15-2022 End: 05-16-2022 ambulatory TIMMY TINSLEY [facility] Start: 04-28-2022 End: 04-29-[address] ARETHA BREWSTER . Facility:[facility] Start: 04-23-2022 End: 04-24-[address] ARETHA BREWSTER . Facility:[facility] Start: 04-10-2022 End: 04-11-[address] ARETHA BREWSTER . Facility:[facility] Start: 03-24-2022 End: 03-24-2022 ambulatory JESSICA YAZ . Facility:[facility] Start: 01-14-2022 Encounter for genera l adult medical examination without abnormal findings DR ARETHA BREWSTER . [facility] Start: 01-08-2022 End: 01-09-[address] ARETHA BREWSTER . Facility:[facility] Start: 01-08-2022 End: 01-09-2022 Encounter for general adult medical examination without abnormal findings DR ARETHA BREWSTER . Facility:[facility] Start: 11-12-2021 End: 11-12-2021 ambulatory Olivia Dean Other [facility] Other Start: 11-12-2021 Office outpatient vi sit 15 minutes Olivia Dean [facility] Procedures Date [...] 03-09-2024 Hepatitis B core ant ibody measurement [facility] Start: 03-09-2024 [facility] Albumin [Mass/volume ] in Serum or Plasma [facility] Albumin/Globulin ratio [facility] Aldolase measurement [facility] Chromatin Ab [Units/ volume] in Serum or Plasma [facility] Electrophoresis: vuhhg-0-hvkskvpt [facility] Electrophoresis: cplxn-0-dspnswrv [facility] Electrophoresis: beta-globulin [facility] Electrophoresis: gamma globulin [facility] Globulin [Mass/volume] in Serum [facility] Hepatitis B virus ortiz rface Ab [Presence] in Serum [facility] Hepatitis B virus ortiz rface Ag [Presence] in Serum or Plasma by Immunoassay [facility] Hepatitis C virus Ig G Ab [Presence] in Serum or Plasma by Immunoassay [facility] Homogenous nuclear A b pattern [Titer] in Serum [facility] Immunofixation for Urine Fir [facility] Interferon gamma assay [facility] Measurement of monoc lonal protein concentration [facility] Mycobacterium tuberc ulosis stimulated gamma interferon [Interpretation] in Blood Qualitative [facility] Mycobacterium tuberc ulosis stimulated gamma interferon release by CD4+ and CD8+ T-cells [Units/volume] corrected for background in Blood [facility] Mycobacterium tuberc ulosis tuberculin stimulated gamma interferon [Presence] in Blood [facility] Nuclear Ab [Titer] in Serum [facility] Protein [Mass/volume ] in Serum or Plasma [facility] Protein [Mass/volume] in Urine [facility] Reagin Ab [Presence] in Serum by RPR [facility] Immunizations Immunization Date Immunization Notes Care Provider Fa cili 04-15-2022 influenza virus vaccine, unspecified formulation Lui GAMINO [facility] 04-14-2022 SARS-CoV-2 (COVID-19 ) [id number] Lui GAMINO [facility] 02-10-2022 SARS-CoV-2 mRNA (fxtnvytyzdz-xvxb-abrvh se) vaccine Lui GAMINO [facility] 08-26-2021 SARS-CoV-2 mRNA (kwnppgfrnur-xznt-zaaoq se) vaccine Lui GAMINO [facility] 02-25-2021 SARS-CoV-2 (COVID-19 ) mRNA BNT-162b2 vax Lui GAMINO [facility] 02-04-2021 SARS-CoV-2 (COVID-19 ) mRNA BNT-162b2 vax Lui GAMINO [facility] Payers Date Payer Category Payer Self-pay 1958 Medicare [id number] 1955 Unknown [id number] 2.16.84 [id number] 1955 Unknown [id number] 2.16.84 [id number] 1955 Unknown [id number] 2.16.84 0.1.807882.3.579.2.593 1955 Unknown [id number] 2.16.84 0.1.621331.3.579.2.593 1955 Unknown [id number] 2.16.84 0.1.693624.3.579.2.593 1955 Unknown [id number] 2.16.84 0.1.308078.3.579.2.593 1955 Unknown [id number] 2.16.84 0.1.813982.3.579.2.593 1955 Unknown [id number] 2.16.8 40.1.958790.3.579.2.727 1955 Unknown [id number] 2.16.8 40.1.743808.3.579.2.727 1955 Unknown [id number] 2.16.84 0.1.800066.3.579.2.1259 1955 Unknown [id number] 2.16.84 0.1.406320.3.579.2.1259 1955 Unknown [id number] 2.16.84 0.1.664360.3.579.2.1259 Private Health Insurance [id number] Unknown [id number] 2.16.8 40.1.199859.3.579.2.531 Social History Date Type Detail Facility [facility]: [facility]22 Tobacco smoking status Ex-smoker (fi nding) [facility] Tobacco smoking status Never [facility] Start: 1955 Sex Assigned At Female F [facility] Functional Status Date Assessment Result Facility 09-10-2022 Functional Status N/A [facility] Clinical Notes 11-12-2021 to 06-14-2023 Note [...] previous rx of steroids. Use rx of [facility] as directed. Discussed importance of adequate hydration [...] plan. Patient sent home in stable condition. [facility] Other 04-19-2023 NoteOPERATIVE NOTE OPERATION DATE: 10/01/2022 ADDENDUM: Please add to the operative report - Follow up screening colonoscopy should be in 10 years.[id number] NoteOPERATIVE NOTE OPERATION DATE: 10/01/2022 PREOPERATIVE DIAGNOSIS: [...] room in good condition. CC: Aretha Brewster M.D.[facility]03-29-2023 NoteChief Complaint consultation for screening colonoscopy HPI [...] and Sister. Immunizations Vaccin (more content not included)...[facility]:Result Comment: Electronically Signed By: HANNY HERNANDEZ, Lui Moeller\Date and Time Signed: 09/10/22 16:09 [id number] NoteOrthopaedic Surgery Outpatient Visit Note Encounter Date: [...] incisional issues. 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) [facility] Other Evaluation + Plan note No data available for this section [facility] Evaluation noteNo assessment information available [facility] Work Phone: [facility] Narrative - Reported* Type Description Date Medical History arthritis Surgical History pyloniadal cyst Surgical History both knee Surgical History breast reduction Surgical History tubal ligation Surgical History Total hip replacement Hospitalization History see above surg hx [facility] Other [facility] general Narrative - Reported* Type Description Date Medical History arthritis Medical History GERD Surgical History pyloniadal cyst Surgical History both knee Surgical History breast reduction Surgical History tubal ligation Surgical History Total hip replacement Hospitalization History see above surg [facility] Other Hospital Discharge instructions No data available for this section [facility] Progress note No data available for this section [facility] Summary Purpose Family History No Family History Records Found Relationship Condition Age at Onset Recorded Date/T griselda father Unknown Heart disease Unknown family member Unknown mother Diabetes mellitus Unknown Unknown Advance Directives No Advanced Directives Records FoundNo Advanced Directives Records FoundNo Advanced Directives Records FoundNo Advanced Directives Records FoundNo Advanced Directives Records FoundNo Advanced Directives Records Found Additional Source Comments INFORMATION SOURCE (unrecogn ized section and content) DATE CREATED AUTHOR 10/25/2021 [facility] DATE CREATED AUTHOR AUTHOR'S ORGANIZ ATION 05/17/2022 [facility] DATE CREATED AUTHOR AUTHOR'S ORGANIZ ATION 10/10/2022 [facility] DATE CREATED AUTHOR AUTHOR'S ORGANIZ ATION 10/10/2022 [facility] DATE CREATED AUTHOR AUTHOR'S ORGANIZ ATION 01/28/2024 [facility] DATE CREATED AUTHOR AUTHOR'S ORGANIZ ATION 03/20/2024 [facility] REASON FOR VISIT (unrecogniz ed section and content) LEFT LEG SPIDER BITE, GOT BI T YESTERDAY AND IS GETTING WORSEHEAD COLD , HEADACHE, COUGH Patient Care team informatio n (unrecognized section and content) Team Status: Active Member Role Status Sandip Brewster MD Primary Care Provider Active Team Status: Inactive Member Role Status Sandip Brewster MD Primary Care Provider Active Start: [...] BE BASED ON THE PRIMARY CLINICAL RECORDS. [employer] provides no warranty or guarantee of the accuracy or completeness of information in this document.
== END 2024-05-04 09:34 | disposition home or self-care (01) ==
LOC: MAMMO 09:33
PROVIDERS: PCP Family Medicine; Visit Provider Family Medicine
DX: Z12.31 Encounter for screening mammogram for malignant neoplasm of breast (principal)
CPT/HCPCS: 77063; 77067

== ENCOUNTER 2024-05-17 06:42 | Outpatient (OUT) | payer MEDICARE, SELFPAY ==
--- OUTSIDE RECORDS SUMMARY | 2024-05-17 06:46 | XMS_ITS | CCD ---
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 Phone Olivia Dean Unavailable TIMMY [...] GARCIA Attending Unavailable EUGENIO GARCIA Attending Unavailable AREHTA BREWSTER Referring Unavailable MD Aretha Brewster Primary Care Provider [phone] MD Gordy Matthew Attending Provider Gordy Matthew Admitting Unavailable Gordy Matthew Attending Unavailable Aretha Brewster Primary Care Unavailable Allergies Allergy Classification Reported Allergen(s) Allergy Type Date of Onset Reaction(s) Facility (4 sources) Erythromycin; Translations: [erythromycin] Drug Allergy GI upset [facility] [place] (6 sources) Latex; Translations: [LATEX] Propensity to adverse reactions 2 Inflammatory dermatosis (disorder) [facility] Repository (3 sources) Penicillin G Drug Allergy 3 anaphylaxis [facility] (3 sources) Penicillins; Translations: [PENICILLINS] Propensity to adverse reactions to drug (disorder) 2 Anaphylaxis (disorder) [facility] Repository (4 sources) ERYTHROMYCIN BASE; Translations: [ERYTHROMYCIN BASE] Propensity to adverse reactions to drug (disorder) 2 GI upset [facility] Repository (1 source) natural latex rubber Drug allergy (disorder) 3 [facility] Repository (1 source) Penicillin Drug Allergy [facility] Repository (1 source) Latex Drug allergy (disorder) 3 [facility] Repository (1 source) Penicillin Drug Allergy 3 [facility] Repository Medications Current Medications Medication [...] 1.5 mg/ml oral solution (1 source) Uncompetitive [id number]-B-aspartat e 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, Sigma-1 Agonist Start: 06-14-2023 take 10 mL by mouth every eight hours [place] DM 7.5-7.5 MG/5ML 10 mL Orally every [...] Osteoarthritis 08-29-2022 Chronic Other aftercare (1 source) 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 [facility] Comment on above: Result Comment: Nega tive <1:80 Borderline 1:80 Positive >1:80 ICAP nomenclature: [id number] For more information about Hep-2 cell patterns use ANApatterns.org, the official website for the International Consensus on Antinuclear Antibody (BIGG) Patterns (ICAP). Performed at: - [facility] [id number] Fire Protection Engineering Technician: Jasiel Key PhD, Phone: [phone] Performed By: #### C RP, CK, CBC, CMP, T4F, ESR, TSH3, ADDONUAPLUS #### [address] #### SPE, KARUNA,URINE, BIGG, HBCAB, ALDOLASE, RPR W RFX, HCV RX PCR, UPE RAND, HBSAB, QUANT TB, CHROMATIN, HBSAG #### [facility] , Alanine aminotransferase [En zymatic activity/volume] in Serum or PlasmaOrdered By: Gordy Matthew on 03-09-2024 ALT [Catalytic activity/Vol] 15 U/L Normal 7-52 [facility] Comment on above: Performed By: #### C RP, CK, CBC, CMP, T4F, ESR, TSH3, ADDONUAPLUS #### [facility] [address] [place] [address] #### SPE, KARUNA,URINE, BIGG, HBCAB, ALDOLASE, RPR W RFX, HCV RX PCR, UPE RAND, HBSAB, QUANT TB, CHROMATIN, HBSAG #### [facility] , Albumin [Mass/volume] in Ser um or Plasma by Bromocresol green (BCG) dye binding methoOrdered By: Gordy Matthew on 03-09-2024 Albumin BCG dye [Mass/Vol] 4.2 g/dL 3.5-5.7 [facility] Aldolaseon 03-09-2024 Aldolase 3.6 U/L Normal 3.3-10.3 [facility] Comment on above: Result Comment: Perf ormed at: CB - [facility] [address] [id number] Fire Protection Engineering Technician: Jasiel Key PhD, Phone: [phone] PERFORMED BY: [place] [address] PATHOLOGIST MAGAZINE WRITER JOCELYN EDGE M.D. Performed By: #### C RP, CK, CBC, CMP, T4F, ESR, TSH3, ADDONUAPLUS #### [facility] [address] [place] [address] [place] #### SPE, KARUNA,URINE, BIGG, HBCAB, ALDOLASE, RPR W RFX, HCV RX PCR, UPE RAND, HBSAB, QUANT TB, CHROMATIN, HBSAG #### [facility] , Alkaline phosphatase [Enzyma tic activity/volume] in Serum or PlasmaOrdered By: Gordy Matthew on 03-09-2024 ALP [Catalytic activity/Vol] 77 U/L Normal 34-104 [facility] Comment on above: Performed By: #### C RP, CK, CBC, CMP, T4F, ESR, TSH3, ADDONUAPLUS #### [address] #### SPE, KARUNA,URINE, BIGG, HBCAB, ALDOLASE, RPR W RFX, HCV RX PCR, UPE RAND, HBSAB, QUANT TB, CHROMATIN, HBSAG #### [facility] , Aspartate aminotransferase [ Enzymatic activity/volume] in Serum or PlasmaOrdered By: Gordy Matthew on 03-09-2024 AST [Catalytic activity/Vol] 13 U/L Normal 13-39 [facility] Comment on above: Performed By: #### C RP, CK, CBC, CMP, T4F, ESR, TSH3, ADDONUAPLUS #### [facility] [address] [place] [address] [place] #### SPE, KARUNA,URINE, BIGG, HBCAB, ALDOLASE, RPR W RFX, HCV RX PCR, UPE RAND, HBSAB, QUANT TB, CHROMATIN, HBSAG #### [facility] , Automated basophil %Ordered By: Gordy Matthew on 03-09-2024 Basophils/100 WBC (Bld) 0.5 % Normal . [facility] Comment on above: Performed By: #### C RP, CK, CBC, CMP, T4F, ESR, TSH3, ADDONUAPLUS #### [place] [address] [place] #### SPE, KARUNA,URINE, BIGG, HBCAB, ALDOLASE, RPR W RFX, HCV RX PCR, UPE RAND, HBSAB, QUANT TB, CHROMATIN, HBSAG #### [facility] , Automated basophil countOrde red By: Gordy Matthew on 03-09-2024 Basophils (Bld) [#/Vol] 0.1 10*3/uL Normal 0.0-0.2 [facility] Comment on above: Performed By: #### C RP, CK, CBC, CMP, T4F, ESR, TSH3, ADDONUAPLUS #### [facility] [address] [place] [address] #### SPE, KARUNA,URINE, BIGG, HBCAB, ALDOLASE, RPR W RFX, HCV RX PCR, UPE RAND, HBSAB, QUANT TB, CHROMATIN, HBSAG #### [facility] , Automated blood monocyte cou ntOrdered By: Gordy Matthew on 03-09-2024 Monocytes (Bld) [#/Vol] 1.0 10*3/uL High 0.0-0.8 [facility] Comment on above: Performed By: #### C RP, CK, CBC, CMP, T4F, ESR, TSH3, ADDONUAPLUS #### [address] #### SPE, KARUNA,URINE, BIGG, HBCAB, ALDOLASE, RPR W RFX, HCV RX PCR, UPE RAND, HBSAB, QUANT TB, CHROMATIN, HBSAG #### [facility] , Automated eosinophil %Ordere d By: Gordy Matthew on 03-09-2024 Eosinophils/100 WBC (Bld) 0.4 % Normal . [facility] Comment on above: Performed By: #### C RP, CK, CBC, CMP, T4F, ESR, TSH3, ADDONUAPLUS #### [facility] [address] [place] [address] [place] #### SPE, KARUNA,URINE, BIGG, HBCAB, ALDOLASE, RPR W RFX, HCV RX PCR, UPE RAND, HBSAB, QUANT TB, CHROMATIN, HBSAG #### [facility] , Automated eosinophil countOr dered By: Gordy Matthew on 03-09-2024 Eosinophils (Bld) [#/Vol] 0.0 10*3/uL Normal 0.0-0.45 [facility] Comment on above: Performed By: #### C RP, CK, CBC, CMP, T4F, ESR, TSH3, ADDONUAPLUS #### [facility] [address] [place] [address] [place] #### SPE, KARUNA,URINE, BIGG, HBCAB, ALDOLASE, RPR W RFX, HCV RX PCR, UPE RAND, HBSAB, QUANT TB, CHROMATIN, HBSAG #### [facility] , Automated monocyte %Ordered By: Gordy Vipul on 03-09-2024 Monocytes/100 WBC (Bld) 8.5 % Normal . [facility] Comment on above: Performed By: #### C RP, CK, CBC, CMP, T4F, ESR, TSH3, ADDONUAPLUS #### [facility] [address] [place] [address] [place] #### SPE, KARUNA,URINE, BIGG, HBCAB, ALDOLASE, RPR W RFX, HCV RX PCR, UPE RAND, HBSAB, QUANT TB, CHROMATIN, HBSAG #### [facility] , Automated neutrophil %Ordere d By: Gordy Matthew on 03-09-2024 Neutrophils/100 WBC (Bld) 66.2 % Normal . [facility] Comment on above: Performed By: #### C RP, CK, CBC, CMP, T4F, ESR, TSH3, ADDONUAPLUS #### [facility] [address] [place] [address] [place] #### SPE, KARUNA,URINE, BIGG, HBCAB, ALDOLASE, RPR W RFX, HCV RX PCR, UPE RAND, HBSAB, QUANT TB, CHROMATIN, HBSAG #### [facility] , Bacteria [Presence] in Urine by AutomatedOrdered By: Gordy Matthew on 03-09-2024 Bacteria Auto Ql (U) Rare [HPF] None Seen [facility] Bilirubin Test strip Ql (U)O rdered By: Gordy Matthew on 03-09-2024 Bilirubin Ql (U) Negative Negative [facility] Bilirubin.total [Mass/volume ] in Serum or PlasmaOrdered By: Gordy Matthew on 03-09-2024 Bilirubin [Mass/Vol] 0.4 mg/dL Normal 0.3-1.0 [facility] Comment on above: Performed By: #### C RP, CK, CBC, CMP, T4F, ESR, TSH3, ADDONUAPLUS #### [facility] [address] [place] [address] #### SPE, KARUNA,URINE, BIGG, HBCAB, ALDOLASE, RPR W RFX, HCV RX PCR, UPE RAND, HBSAB, QUANT TB, CHROMATIN, HBSAG #### [facility] , C reactive protein [Mass/vol ume] in Serum or PlasmaOrdered By: Gordy Matthew on 03-09-2024 CRP [Mass/Vol] < 0.5 mg/dL 0.0-0.5 [facility] C-Reactive Proteinon 024 CRP [Mass/Vol] mg/L Normal 0.0-0.5 [facility] Comment on above: Performed By: #### C RP, CK, CBC, CMP, T4F, ESR, TSH3, ADDONUAPLUS #### [place] [address] [place] #### SPE, KARUNA,URINE, BIGG, HBCAB, ALDOLASE, RPR W RFX, HCV RX PCR, UPE RAND, HBSAB, QUANT TB, CHROMATIN, HBSAG #### [facility] , Calcium [Mass/volume] in Ser um or PlasmaOrdered By: Gordy Matthew on 03-09-2024 Calcium [Mass/Vol] 10.6 mg/dL High 8.6-10.3 [facility] Comment on above: Performed By: #### C RP, CK, CBC, CMP, T4F, ESR, TSH3, ADDONUAPLUS #### [facility] [address] [place] [address] [place] #### SPE, KARUNA,URINE, BIGG, HBCAB, ALDOLASE, RPR W RFX, HCV RX PCR, UPE RAND, HBSAB, QUANT TB, CHROMATIN, HBSAG #### [facility] , Carbon dioxide, total [Moles /volume] in Serum or PlasmaOrdered By: Gordy Matthew on 03-09-2024 CO2 [Moles/Vol] 30.4 mmol/L Normal 21.0-31.0 [facility] Comment on above: Performed By: #### C RP, CK, CBC, CMP, T4F, ESR, TSH3, ADDONUAPLUS #### [facility] [address] [place] [address] [place] #### SPE, KARUNA,URINE, BIGG, HBCAB, ALDOLASE, RPR W RFX, HCV RX PCR, UPE RAND, HBSAB, QUANT TB, CHROMATIN, HBSAG #### [facility] , Chloride [Moles/volume] in S billy or PlasmaOrdered By: Gordy Matthew on 03-09-2024 Chloride [Moles/Vol] 103 mmol/L Normal 98-107 [facility] Comment on above: Performed By: #### C RP, CK, CBC, CMP, T4F, ESR, TSH3, ADDONUAPLUS #### [facility] [address] [place] [address] [place] #### SPE, KARUNA,URINE, BIGG, HBCAB, ALDOLASE, RPR W RFX, HCV RX PCR, UPE RAND, HBSAB, QUANT TB, CHROMATIN, HBSAG #### [facility] , Chromatin Antibodyon 024 Chromatin Antibody <0.2 Normal 0.0-0.9 [facility] Comment on above: Result Comment: Perf ormed at: CB - [facility] [address] [id number] Fire Protection Engineering Technician: Jasiel Key PhD, Phone: [phone] Performed By: #### C RP, CK, CBC, CMP, T4F, ESR, TSH3, ADDONUAPLUS #### [facility] [address] [place] [address] [place] #### SPE, KARUNA,URINE, BIGG, HBCAB, ALDOLASE, RPR W RFX, HCV RX PCR, UPE RAND, HBSAB, QUANT TB, CHROMATIN, HBSAG #### [facility] , Color of Urine by AutoOrdere d By: Gordy Matthew on 03-09-2024 Color (U) Light-yellow Normal Yellow [facility] Comment on above: Order Comment: Name Collection Type:: Clean-Voided Midstream Performed By: #### C RP, CK, CBC, CMP, T4F, ESR, TSH3, ADDONUAPLUS #### [address] #### SPE, KARUNA,URINE, BIGG, HBCAB, ALDOLASE, RPR W RFX, HCV RX PCR, UPE RAND, HBSAB, QUANT TB, CHROMATIN, HBSAG #### [facility] , Complete Blood Count Auto Di ffon 03-09-2024 Mean Corpuscular HGB Conc 33.0 g/dL Normal 32.0-35.0 [facility] Comment on above: Performed By: #### C RP, CK, CBC, CMP, T4F, ESR, TSH3, ADDONUAPLUS #### [address] #### SPE, KARUNA,URINE, BIGG, HBCAB, ALDOLASE, RPR W RFX, HCV RX PCR, UPE RAND, HBSAB, QUANT TB, CHROMATIN, HBSAG #### [facility] , NRBC% 0.1 /100{WBC} Normal 0-0.5 [facility] Comment on above: Performed By: #### C RP, CK, CBC, CMP, T4F, ESR, TSH3, ADDONUAPLUS #### [place] [address] [place] #### SPE, KARUNA,URINE, BIGG, HBCAB, ALDOLASE, RPR W RFX, HCV RX PCR, UPE RAND, HBSAB, QUANT TB, CHROMATIN, HBSAG #### [facility] , Comprehensive Metabolic Pane erika 03-09-2024 Albumin [Mass/Vol] 4.2 g/dL Normal 3.5-5.7 [facility] Comment on above: Performed By: #### C RP, CK, CBC, CMP, T4F, ESR, TSH3, ADDONUAPLUS #### [place] [address] [place] #### SPE, KARUNA,URINE, BIGG, HBCAB, ALDOLASE, RPR W RFX, HCV RX PCR, UPE RAND, HBSAB, QUANT TB, CHROMATIN, HBSAG #### [facility] , GFR/1.73 sq M.predicted MDRD (S/P/Bld) [Vol rate/Area] mL/min/{1.73_m2} Normal [facility] Comment on above: Performed By: #### C RP, CK, CBC, CMP, T4F, ESR, TSH3, ADDONUAPLUS #### [address] #### SPE, KARUNA,URINE, BIGG, HBCAB, ALDOLASE, RPR W RFX, HCV RX PCR, UPE RAND, HBSAB, QUANT TB, CHROMATIN, HBSAG #### [facility] , Creatine kinase [Enzymatic a ctivity/volume] in Serum or PlasmaOrdered By: Gordy Matthew on 03-09-2024 CK [Catalytic activity/Vol] 25 U/L Low 30-223 [facility] Comment on above: Result Comment: PERF ORMED BY: [place] [address] PATHOLOGIST MAGAZINE WRITER JOCELYN EDGE M.D. Performed By: #### C RP, CK, CBC, CMP, T4F, ESR, TSH3, ADDONUAPLUS #### [address] #### SPE, KARUNA,URINE, BIGG, HBCAB, ALDOLASE, RPR W RFX, HCV RX PCR, UPE RAND, HBSAB, QUANT TB, CHROMATIN, HBSAG #### [facility] , Creatinine [Mass/volume] in Serum or PlasmaOrdered By: Gordy Matthew on 03-09-2024 Creatinine [Mass/Vol] 0.80 mg/dL Normal 0.60-1.20 [facility] Comment on above: Performed By: #### C RP, CK, CBC, CMP, T4F, ESR, TSH3, ADDONUAPLUS #### [address] #### SPE, KARUNA,URINE, BIGG, HBCAB, ALDOLASE, RPR W RFX, HCV RX PCR, UPE RAND, HBSAB, QUANT TB, CHROMATIN, HBSAG #### [facility] , Dipstick and Microscopicon 0 03-09-2024 Bacteria,Urine Rare Normal None Seen [facility] Comment on above: Order Comment: Name Collection Type:: Clean-Voided Midstream Performed By: #### C RP, CK, CBC, CMP, T4F, ESR, TSH3, ADDONUAPLUS #### [address] #### SPE, KARUNA,URINE, BIGG, HBCAB, ALDOLASE, RPR W RFX, HCV RX PCR, UPE RAND, HBSAB, QUANT TB, CHROMATIN, HBSAG #### [facility] , Bilirubin,Urine Negative Normal Negative [facility] Comment on above: Order Comment: Name Collection Type:: Clean-Voided Midstream Performed By: #### C RP, CK, CBC, CMP, T4F, ESR, TSH3, ADDONUAPLUS #### [address] #### SPE, KARUNA,URINE, BIGG, HBCAB, ALDOLASE, RPR W RFX, HCV RX PCR, UPE RAND, HBSAB, QUANT TB, CHROMATIN, HBSAG #### [facility] , Glucose Ql (U) Normal Normal Normal [facility] Comment on above: Order Comment: Name Collection Type:: Clean-Voided Midstream Performed By: #### C RP, CK, CBC, CMP, T4F, ESR, TSH3, ADDONUAPLUS #### [address] #### SPE, KARUNA,URINE, BIGG, HBCAB, ALDOLASE, RPR W RFX, HCV RX PCR, UPE RAND, HBSAB, QUANT TB, CHROMATIN, HBSAG #### [facility] , Hyaline Casts,Urine None Normal 0-8 [facility] Comment on above: Order Comment: Name Collection Type:: Clean-Voided Midstream Performed By: #### C RP, CK, CBC, CMP, T4F, ESR, TSH3, ADDONUAPLUS #### [address] #### SPE, KARUNA,URINE, BIGG, HBCAB, ALDOLASE, RPR W RFX, HCV RX PCR, UPE RAND, HBSAB, QUANT TB, CHROMATIN, HBSAG #### [facility] , Mucus,Urine Rare Normal [facility] Comment on above: Order Comment: Name Collection Type:: Clean-Voided Midstream Result Comment: PERF ORMED BY: [place] [address] PATHOLOGIST MAGAZINE WRITER JOCELYN EDGE M.D. Performed By: #### C RP, CK, CBC, CMP, T4F, ESR, TSH3, ADDONUAPLUS #### [address] #### SPE, KARUNA,URINE, BIGG, HBCAB, ALDOLASE, RPR W RFX, HCV RX PCR, UPE RAND, HBSAB, QUANT TB, CHROMATIN, HBSAG #### [facility] , Nitrite,Urine Negative Normal Negative [facility] Comment on above: Order Comment: Name Collection Type:: Clean-Voided Midstream Performed By: #### C RP, CK, CBC, CMP, T4F, ESR, TSH3, ADDONUAPLUS #### [address] #### SPE, KARUNA,URINE, BIGG, HBCAB, ALDOLASE, RPR W RFX, HCV RX PCR, UPE RAND, HBSAB, QUANT TB, CHROMATIN, HBSAG #### [facility] , Occult Blood,Urine Negative Normal Negative [facility] Comment on above: Order Comment: Name Collection Type:: Clean-Voided Midstream Performed By: #### C RP, CK, CBC, CMP, T4F, ESR, TSH3, ADDONUAPLUS #### [address] #### SPE, KARUNA,URINE, BIGG, HBCAB, ALDOLASE, RPR W RFX, HCV RX PCR, UPE RAND, HBSAB, QUANT TB, CHROMATIN, HBSAG #### [facility] , Protein,Urine Negative Normal Negative [facility] Comment on above: Order Comment: Name Collection Type:: Clean-Voided Midstream Performed By: #### C RP, CK, CBC, CMP, T4F, ESR, TSH3, ADDONUAPLUS #### [address] #### SPE, KARUNA,URINE, BIGG, HBCAB, ALDOLASE, RPR W RFX, HCV RX PCR, UPE RAND, HBSAB, QUANT TB, CHROMATIN, HBSAG #### [facility] , RBC,Urine 1-2 Normal 0-4 [facility] Comment on above: Order Comment: Name Collection Type:: Clean-Voided Midstream Performed By: #### C RP, CK, CBC, CMP, T4F, ESR, TSH3, ADDONUAPLUS #### [address] #### SPE, KARUNA,URINE, BIGG, HBCAB, ALDOLASE, RPR W RFX, HCV RX PCR, UPE RAND, HBSAB, QUANT TB, CHROMATIN, HBSAG #### [facility] , Specificy [place],Urine 1.013 Normal 1.001-1.030 [facility] Comment on above: Order Comment: Name Collection Type:: Clean-Voided Midstream Performed By: #### C RP, CK, CBC, CMP, T4F, ESR, TSH3, ADDONUAPLUS #### [place] [address] [place] #### SPE, KARUNA,URINE, BIGG, HBCAB, ALDOLASE, RPR W RFX, HCV RX PCR, UPE RAND, HBSAB, QUANT TB, CHROMATIN, HBSAG #### [facility] , Urobilinogen,Urine Normal Normal Normal [facility] Comment on above: Order Comment: Name Collection Type:: Clean-Voided Midstream Performed By: #### C RP, CK, CBC, CMP, T4F, ESR, TSH3, ADDONUAPLUS #### [address] #### SPE, KARUNA,URINE, BIGG, HBCAB, ALDOLASE, RPR W RFX, HCV RX PCR, UPE RAND, HBSAB, QUANT TB, CHROMATIN, HBSAG #### [facility] , WBC,Urine 3-4 Normal 0-4 [facility] Comment on above: Order Comment: Name Collection Type:: Clean-Voided Midstream Performed By: #### C RP, CK, CBC, CMP, T4F, ESR, TSH3, ADDONUAPLUS #### [address] #### SPE, KARUNA,URINE, BIGG, HBCAB, ALDOLASE, RPR W RFX, HCV RX PCR, UPE RAND, HBSAB, QUANT TB, CHROMATIN, HBSAG #### [facility] , Epithelial cells.squamous [# /area] in Urine sediment by Automated countOrdered By: Gordy Matthew on 03-09-2024 Epithelial cells.squamous Auto (Urine sed) [#/Area] N/A [facility] Erythrocyte Sedimentation Ra conchita 03-09-2024 ESR (Bld) [Velocity] 25 mm/h Normal 0-29 [facility] Comment on above: Result Comment: PERF ORMED BY: [place] [address] PATHOLOGIST MAGAZINE WRITER JOCELYN EDGE M.D. Performed By: #### C RP, CK, CBC, CMP, T4F, ESR, TSH3, ADDONUAPLUS #### [address] #### SPE, KARUNA,URINE, BIGG, HBCAB, ALDOLASE, RPR W RFX, HCV RX PCR, UPE RAND, HBSAB, QUANT TB, CHROMATIN, HBSAG #### [facility] , Erythrocyte distribution wid th [Ratio] by Automated countOrdered By: Gordy Farooqrow on 03-09-2024 Erythrocyte distribution width (RBC) [Ratio] 14.1 % Normal 11.9-15.3 [facility] Comment on above: Performed By: #### C RP, CK, CBC, CMP, T4F, ESR, TSH3, ADDONUAPLUS #### [facility] [address] [place] [address] #### SPE, KARUNA,URINE, BIGG, HBCAB, ALDOLASE, RPR W RFX, HCV RX PCR, UPE RAND, HBSAB, QUANT TB, CHROMATIN, HBSAG #### [facility] , Erythrocyte sedimentation ra te by Photometric methodOrdered By: Gordylarry Matthew on 03-09-2024 ESR Photometric method (Bld) [Velocity] 25 mm/hr 0-29 [facility] Erythrocytes [#/area] in Uri ne sediment by Automated countOrdered By: Gordy Matthew on 03-09-2024 RBC Auto (Urine sed) [#/Area] 1-2 [HPF] 0-4 [facility] Erythrocytes [#/volume] in B lood by Automated countOrdered By: Gordy Matthew on 03-09-2024 RBC (Bld) [#/Vol] 4.71 10*6/uL Normal 3.60-5.00 [facility] Comment on above: Performed By: #### C RP, CK, CBC, CMP, T4F, ESR, TSH3, ADDONUAPLUS #### [facility] [address] [place] [address] [place] #### SPE, KARUNA,URINE, BIGG, HBCAB, ALDOLASE, RPR W RFX, HCV RX PCR, UPE RAND, HBSAB, QUANT TB, CHROMATIN, HBSAG #### [facility] , Glucose [Mass/volume] in Ser um or PlasmaOrdered By: Gordy Matthew on 03-09-2024 Glucose [Mass/Vol] 100 mg/dL Normal 70-100 [facility] Comment on above: ADA recommended refe rence rangeRandom Glucose Reference Range is dependent on time and content of last meal. Glucose of more than 200 mg/dL in a nonstressed, ambulatory subject supports the diagnosis of Diabetes Mellitus. Result Comment: [place] Glucose Reference Range is dependent on time and content of last meal. Glucose of more than 200 mg/dL in a nonstressed, ambulatory subject supports the diagnosis of Diabetes Mellitus. ADA recommended reference range Performed By: #### C RP, CK, CBC, CMP, T4F, ESR, TSH3, ADDONUAPLUS #### [address] #### SPE, KARUNA,URINE, BIGG, HBCAB, ALDOLASE, RPR W RFX, HCV RX PCR, UPE RAND, HBSAB, QUANT TB, CHROMATIN, HBSAG #### [facility] , Glucose [Mass/volume] in Uri ne by Test stripOrdered By: Gordy Matthew on 03-09-2024 Glucose Test strip (U) [Mass/Vol] Normal mg/dL Normal [facility] Hematocrit [Volume Fraction] of Blood by Automated countOrdered By: Gordy Matthew on 03-09-2024 Hematocrit (Bld) [Volume fraction] 41.1 % Normal 34.0-46.4 [facility] Comment on above: Performed By: #### C RP, CK, CBC, CMP, T4F, ESR, TSH3, ADDONUAPLUS #### [place] [address] [place] #### SPE, KARUNA,URINE, BIGG, HBCAB, ALDOLASE, RPR W RFX, HCV RX PCR, UPE RAND, HBSAB, QUANT TB, CHROMATIN, HBSAG #### [facility] , Hemoglobin Test strip Ql (U) Ordered By: Gordy Matthew on 03-09-2024 Hemoglobin Ql (U) Negative Negative [facility] Hemoglobin [Mass/volume] in BloodOrdered By: Gordy Matthew on 03-09-2024 Hemoglobin (Bld) [Mass/Vol] 13.6 g/dL Normal 11.8-15.4 [facility] Comment on above: Performed By: #### C RP, CK, CBC, CMP, T4F, ESR, TSH3, ADDONUAPLUS #### [address] #### SPE, KARUNA,URINE, BIGG, HBCAB, ALDOLASE, RPR W RFX, HCV RX PCR, UPE RAND, HBSAB, QUANT TB, CHROMATIN, HBSAG #### [facility] , Hep C Ab wRfx to Qnt PCRon 0 03-09-2024 Hepatitis C Virus Antibody Non-Reactive Normal Non Reactive [facility] Comment on above: Performed By: #### C RP, CK, CBC, CMP, T4F, ESR, TSH3, ADDONUAPLUS #### [address] #### SPE, KARUNA,URINE, BIGG, HBCAB, ALDOLASE, RPR W RFX, HCV RX PCR, UPE RAND, HBSAB, QUANT TB, CHROMATIN, HBSAG #### [facility] , Interpretation Hepatitis C Comment Normal . [facility] Comment on above: Result Comment: Not infected with HCV unless early or acute infection is suspected (which may be delayed in an immunocompromised individual), or other evidence exists to indicate HCV infection. Performed By: #### C RP, CK, CBC, CMP, T4F, ESR, TSH3, ADDONUAPLUS #### [address] #### SPE, KARUNA,URINE, BIGG, HBCAB, ALDOLASE, RPR W RFX, HCV RX PCR, UPE RAND, HBSAB, QUANT TB, CHROMATIN, HBSAG #### [facility] , Hepatitis B Core Antibodyon 03-09-2024 Hepatitis B Core Antibody Negative Normal Negative [facility] Comment on above: Result Comment: Perf ormed at: - [facility] [address] [id number] Fire Protection Engineering Technician: Jasiel Key PhD, Phone: [phone] Performed By: #### C RP, CK, CBC, CMP, T4F, ESR, TSH3, ADDONUAPLUS #### [address] #### SPE, KARUNA,URINE, BIGG, HBCAB, ALDOLASE, RPR W RFX, HCV RX PCR, UPE RAND, HBSAB, QUANT TB, CHROMATIN, HBSAG #### [facility] , Hepatitis B Surface Antibody on 03-09-2024 Hepatitis B Surface Antibody Non-Reactive Normal . [facility] Comment on above: Result Comment: Non Reactive: Not immune to HBV infection. Equivocal: Unable to determine if anti-HBs is present at levels consistent with immunity. Reactive: Anti-HBs concentration detected at greater than 10 mIU/mL. Individual is considered to be immune to infection with HBV. Performed By: #### C RP, CK, CBC, CMP, T4F, ESR, TSH3, ADDONUAPLUS #### [address] #### SPE, KARUNA,URINE, BIGG, HBCAB, ALDOLASE, RPR W RFX, HCV RX PCR, UPE RAND, HBSAB, QUANT TB, CHROMATIN, HBSAG #### [facility] , Hepatitis B Surface Antigeno n 03-09-2024 HBsAg Screen Negative Normal Negative [facility] Comment on above: Result Comment: PERF ORMED BY: [place] [address] PATHOLOGIST MAGAZINE WRITER JOCELYN EDGE M.D. Performed By: #### C RP, CK, CBC, CMP, T4F, ESR, TSH3, ADDONUAPLUS #### [address] #### SPE, KARUNA,URINE, BIGG, HBCAB, ALDOLASE, RPR W RFX, HCV RX PCR, UPE RAND, HBSAB, QUANT TB, CHROMATIN, HBSAG #### [facility] , Hyaline casts [#/area] in Ur ine sediment by Automated countOrdered By: Gordy Matthew on 03-09-2024 Hyaline casts Auto (Urine sed) [#/Area] None [LPF] 0-8 [facility] Immunofixation, (KARUNA), Urine on 03-09-2024 Immunofixation, (KARUNA), Urine Comment Normal . [facility] Comment on above: Result Comment: No m onoclonality detected. Performed at: [facility] [address] [id number] Fire Protection Engineering Technician: Jasiel Key PhD, Phone: [phone] Performed By: #### C RP, CK, CBC, CMP, T4F, ESR, TSH3, ADDONUAPLUS #### [address] #### SPE, KARUNA,URINE, BIGG, HBCAB, ALDOLASE, RPR W RFX, HCV RX PCR, UPE RAND, HBSAB, QUANT TB, CHROMATIN, HBSAG #### [facility] , Ketones [Presence] in Urine by Test stripOrdered By: Gordy Matthew on 03-09-2024 Ketones Ql (U) Negative Normal Negative [facility] Comment on above: Order Comment: Name Collection Type:: Clean-Voided Midstream Performed By: #### C RP, CK, CBC, CMP, T4F, ESR, TSH3, ADDONUAPLUS #### [place] [address] [place] #### SPE, KARUNA,URINE, BIGG, HBCAB, ALDOLASE, RPR W RFX, HCV RX PCR, UPE RAND, HBSAB, QUANT TB, CHROMATIN, HBSAG #### [facility] , Leukocyte esterase [Presence ] in Urine by Test stripOrdered By: Gordy Matthew on 03-09-2024 Leukocyte esterase Test strip Ql (U) Negative Normal Negative [facility] Comment on above: Order Comment: Name Collection Type:: Clean-Voided Midstream Performed By: #### C RP, CK, CBC, CMP, T4F, ESR, TSH3, ADDONUAPLUS #### [place] [address] [place] #### SPE, KARUNA,URINE, BIGG, HBCAB, ALDOLASE, RPR W RFX, HCV RX PCR, UPE RAND, HBSAB, QUANT TB, CHROMATIN, HBSAG #### [facility] , Leukocytes [#/area] in Urine sediment by Automated countOrdered By: Gordy Matthew on 03-09-2024 WBC Auto (Urine sed) [#/Area] 3-4 [HPF] 0-4 [facility] Leukocytes [#/volume] correc [place] for nucleated erythrocytes in Blood by Automated counOrdered By: Gordy Matthew on 03-09-2024 WBC corrected for nucl RBC Auto (Bld) [#/Vol] 11.4 10*3/uL 3.8-11.6 [facility] Leukocytes [#/volume] in Blo od by Automated countOrdered By: Gordy Matthew on 03-09-2024 WBC (Bld) [#/Vol] 11.4 10*3/uL Normal 3.8-11.6 [facility] Comment on above: Performed By: #### C RP, CK, CBC, CMP, T4F, ESR, TSH3, ADDONUAPLUS #### [facility] [address] [place] [address] [place] #### SPE, KARUNA,URINE, BIGG, HBCAB, ALDOLASE, RPR W RFX, HCV RX PCR, UPE RAND, HBSAB, QUANT TB, CHROMATIN, HBSAG #### [facility] , Lymphocytes [#/volume] in Bl ood by Automated countOrdered By: Gordy Farooqrow on 03-09-2024 Lymphocytes (Bld) [#/Vol] 2.8 10*3/uL Normal 1.00-4.8 [facility] Comment on above: Performed By: #### C RP, CK, CBC, CMP, T4F, ESR, TSH3, ADDONUAPLUS #### [facility] [address] [place] [address] [place] #### SPE, KARUNA,URINE, BIGG, HBCAB, ALDOLASE, RPR W RFX, HCV RX PCR, UPE RAND, HBSAB, QUANT TB, CHROMATIN, HBSAG #### [facility] , Lymphocytes/100 leukocytes i n Blood by Automated countOrdered By: Gordy Vipul on 03-09-2024 Lymphocytes/100 WBC (Bld) 24.4 % Normal . [facility] Comment on above: Performed By: #### C RP, CK, CBC, CMP, T4F, ESR, TSH3, ADDONUAPLUS #### [facility] [address] [place] [address] #### SPE, KARUNA,URINE, BIGG, HBCAB, ALDOLASE, RPR W RFX, HCV RX PCR, UPE RAND, HBSAB, QUANT TB, CHROMATIN, HBSAG #### [facility] , MCH [Entitic mass] by Automa [place]ot[place] countOrdered By: Gordy Matthew on 03-09-2024 MCH (RBC) [Entitic mass] 28.8 pg Normal 24.7-34.3 [facility] Comment on above: Performed By: #### C RP, CK, CBC, CMP, T4F, ESR, TSH3, ADDONUAPLUS #### [facility] [address] [place] [address] [place] #### SPE, KARUNA,URINE, BIGG, HBCAB, ALDOLASE, RPR W RFX, HCV RX PCR, UPE RAND, HBSAB, QUANT TB, CHROMATIN, HBSAG #### [facility] , MCHC Auto (RBC) [Mass/Vol]Or dered By: Gordy Matthew on 03-09-2024 MCHC (RBC) [Mass/Vol] 33.0 g/dL 32.0-35.0 [facility] MCV [Entitic volume] by Auto mated countOrdered By: Gordy Farooqrow on 03-09-2024 MCV (RBC) [Entitic vol] 87.3 fL Normal 80-100 F [facility] Comment on above: Performed By: #### C RP, CK, CBC, CMP, T4F, ESR, TSH3, ADDONUAPLUS #### [facility] [address] [place] [address] [place] #### SPE, KARUNA,URINE, BIGG, HBCAB, ALDOLASE, RPR W RFX, HCV RX PCR, UPE RAND, HBSAB, QUANT TB, CHROMATIN, HBSAG #### [facility] , Mucus [Presence] in Urine by AutomatedOrdered By: Gordy Vipul on 03-09-2024 Mucus Auto Ql (U) Rare [LPF] [facility] Neutrophils [#/volume] in Bl ood by Automated countOrdered By: Gordy Vipul on 03-09-2024 Neutrophils (Bld) [#/Vol] 7.5 10*3/uL Normal 1.8-7.7 [facility] Comment on above: Performed By: #### C RP, CK, CBC, CMP, T4F, ESR, TSH3, ADDONUAPLUS #### [facility] [address] [place] [address] #### SPE, KARUNA,URINE, BIGG, HBCAB, ALDOLASE, RPR W RFX, HCV RX PCR, UPE RAND, HBSAB, QUANT TB, CHROMATIN, HBSAG #### [facility] , Nitrite Test strip Ql (U)Ord ered By: Gordylarry Matthew on 03-09-2024 Nitrite Ql (U) Negative Negative [facility] No Panel InformationOrdered By: Gordy Matthew on 03-09-2024 Estimated GFR (CKD-EPI) > 60.0 mL/Min [facility] Creatinine Clearance (Chem N/A [facility] Nucleated erythrocytes [Pres ence] in Blood by Automated countOrdered By: Gordy Matthew on 03-09-2024 Nucleated RBC Auto Ql (Bld) 0.1 /100{WBC} 0-0.5 [facility] Platelet mean volume [Entiti c volume] in Blood by Automated countOrdered By: Gordy Matthew on 03-09-2024 Platelet mean volume (Bld) [Entitic vol] 8.3 fL Normal 6.3-10.7 [facility] Comment on above: Performed By: #### C RP, CK, CBC, CMP, T4F, ESR, TSH3, ADDONUAPLUS #### [facility] [address] [place] [address] [place] #### SPE, KARUNA,URINE, BIGG, HBCAB, ALDOLASE, RPR W RFX, HCV RX PCR, UPE RAND, HBSAB, QUANT TB, CHROMATIN, HBSAG #### [facility] , Platelets [#/volume] in Bloo d by Automated countOrdered By: Gordy Matthew on 03-09-2024 Platelets (Bld) [#/Vol] 332 10*3/uL Normal 150-450 [facility] Comment on above: Performed By: #### C RP, CK, CBC, CMP, T4F, ESR, TSH3, ADDONUAPLUS #### [facility] [address] [place] [address] #### SPE, KARUNA,URINE, BIGG, HBCAB, ALDOLASE, RPR W RFX, HCV RX PCR, UPE RAND, HBSAB, QUANT TB, CHROMATIN, HBSAG #### [facility] , Potassium [Moles/volume] in Serum or PlasmaOrdered By: Gordy Matthew on 03-09-2024 Potassium [Moles/Vol] 4.2 mmol/L Normal 3.5-5.1 [facility] Comment on above: Performed By: #### C RP, CK, CBC, CMP, T4F, ESR, TSH3, ADDONUAPLUS #### [facility] [address] [place] [address] #### SPE, KARUNA,URINE, BIGG, HBCAB, ALDOLASE, RPR W RFX, HCV RX PCR, UPE RAND, HBSAB, QUANT TB, CHROMATIN, HBSAG #### [facility] , Protein Electro, Random Urin krysten 03-09-2024 Albumin, Urine 15.5 % Normal . [facility] Comment on above: Performed By: #### C RP, CK, CBC, CMP, T4F, ESR, TSH3, ADDONUAPLUS #### [facility] [address] [place] [address] [place] #### SPE, KARUNA,URINE, BIGG, HBCAB, ALDOLASE, RPR W RFX, HCV RX PCR, UPE RAND, HBSAB, QUANT TB, CHROMATIN, HBSAG #### [facility] , Djvmt-0-Awzhtpbb, Urine 5.6 % Normal . Divya carey [facility] Comment on above: Performed By: #### C RP, CK, CBC, CMP, T4F, ESR, TSH3, ADDONUAPLUS #### [address] #### SPE, KARUNA,URINE, BIGG, HBCAB, ALDOLASE, RPR W RFX, HCV RX PCR, UPE RAND, HBSAB, QUANT TB, CHROMATIN, HBSAG #### [facility] , Zkdiq-5-Klhxkcib, Urine 21.4 % Normal . T aurelio [facility] Comment on above: Performed By: #### C RP, CK, CBC, CMP, T4F, ESR, TSH3, ADDONUAPLUS #### [address] #### SPE, KARUNA,URINE, BIGG, HBCAB, ALDOLASE, RPR W RFX, HCV RX PCR, UPE RAND, HBSAB, QUANT TB, CHROMATIN, HBSAG #### [facility] , Beta Globulin, Urine 31.2 % Normal . [facility] Comment on above: Performed By: #### C RP, CK, CBC, CMP, T4F, ESR, TSH3, ADDONUAPLUS #### [place] [address] [place] #### SPE, KARUNA,URINE, BIGG, HBCAB, ALDOLASE, RPR W RFX, HCV RX PCR, UPE RAND, HBSAB, QUANT TB, CHROMATIN, HBSAG #### [facility] , Gamma Globulin, Urine 26.4 % Normal . [facility] Comment on above: Performed By: #### C RP, CK, CBC, CMP, T4F, ESR, TSH3, ADDONUAPLUS #### [place] [address] [place] #### SPE, KARUNA,URINE, BIGG, HBCAB, ALDOLASE, RPR W RFX, HCV RX PCR, UPE RAND, HBSAB, QUANT TB, CHROMATIN, HBSAG #### [facility] , M-Leonid % Not Observed Normal Not Observed [facility] Comment on above: Performed By: #### C RP, CK, CBC, CMP, T4F, ESR, TSH3, ADDONUAPLUS #### [address] #### SPE, KARUNA,URINE, BIGG, HBCAB, ALDOLASE, RPR W RFX, HCV RX PCR, UPE RAND, HBSAB, QUANT TB, CHROMATIN, HBSAG #### [facility] , Please Note: Comment Normal . [facility] Comment on above: Result Comment: Prot ein electrophoresis scan will follow via computer, mail, or sugar cane planter machine operator delivery. PERFORMED BY: [place] [address] PATHOLOGIST MAGAZINE WRITER JOCELYN EDGE M.D. Performed By: #### C RP, CK, CBC, CMP, T4F, ESR, TSH3, ADDONUAPLUS #### [address] #### SPE, KARUNA,URINE, BIGG, HBCAB, ALDOLASE, RPR W RFX, HCV RX PCR, UPE RAND, HBSAB, QUANT TB, CHROMATIN, HBSAG #### [facility] , Protein (U) [Mass/Vol] 4.1 mg/dL Normal Not Estab. [facility] Comment on above: Performed By: #### C RP, CK, CBC, CMP, T4F, ESR, TSH3, ADDONUAPLUS #### [place] [address] [place] #### SPE, KARUNA,URINE, BIGG, HBCAB, ALDOLASE, RPR W RFX, HCV RX PCR, UPE RAND, HBSAB, QUANT TB, CHROMATIN, HBSAG #### [facility] , Protein Electrophoresis, Ser umon 03-09-2024 Albumin [Mass/Vol] 3.8 g/dL Normal 2.9-4.4 [facility] Comment on above: Performed By: #### C RP, CK, CBC, CMP, T4F, ESR, TSH3, ADDONUAPLUS #### [facility] [address] #### SPE, KARUNA,URINE, BIGG, HBCAB, ALDOLASE, RPR W RFX, HCV RX PCR, UPE RAND, HBSAB, QUANT TB, CHROMATIN, HBSAG #### [facility] , Albumin/Globulin [Mass ratio] 1.2 {ratio} Normal 0.7-1.7 [facility] Comment on above: Performed By: #### C RP, CK, CBC, CMP, T4F, ESR, TSH3, ADDONUAPLUS #### [address] #### SPE, KARUNA,URINE, BIGG, HBCAB, ALDOLASE, RPR W RFX, HCV RX PCR, UPE RAND, HBSAB, QUANT TB, CHROMATIN, HBSAG #### [facility] , Pmuro-0-Xyjqjerz 0.2 g/dL Normal 0.0-0.4 [facility] Comment on above: Performed By: #### C RP, CK, CBC, CMP, T4F, ESR, TSH3, ADDONUAPLUS #### [address] #### SPE, KARUNA,URINE, BIGG, HBCAB, ALDOLASE, RPR W RFX, HCV RX PCR, UPE RAND, HBSAB, QUANT TB, CHROMATIN, HBSAG #### [facility] , Xyfza-2-Iyqdhpzq 0.7 g/dL Normal 0.4-1.0 [facility] Comment on above: Performed By: #### C RP, CK, CBC, CMP, T4F, ESR, TSH3, ADDONUAPLUS #### [place] [address] [place] #### SPE, KARUNA,URINE, BIGG, HBCAB, ALDOLASE, RPR W RFX, HCV RX PCR, UPE RAND, HBSAB, QUANT TB, CHROMATIN, HBSAG #### [facility] , Beta Globulin 1.1 g/dL Normal 0.7-1.3 [facility] Comment on above: Performed By: #### C RP, CK, CBC, CMP, T4F, ESR, TSH3, ADDONUAPLUS #### [address] #### SPE, KARUNA,URINE, BIGG, HBCAB, ALDOLASE, RPR W RFX, HCV RX PCR, UPE RAND, HBSAB, QUANT TB, CHROMATIN, HBSAG #### [facility] , Gamma Globulin 1.3 g/dL Normal 0.4-1.8 [facility] Comment on above: Performed By: #### C RP, CK, CBC, CMP, T4F, ESR, TSH3, ADDONUAPLUS #### [address] #### SPE, KARUNA,URINE, BIGG, HBCAB, ALDOLASE, RPR W RFX, HCV RX PCR, UPE RAND, HBSAB, QUANT TB, CHROMATIN, HBSAG #### [facility] , Globulin (S) [Mass/Vol] 3.3 g/dL Normal 2.2-3.9 [facility] Comment on above: Performed By: #### C RP, CK, CBC, CMP, T4F, ESR, TSH3, ADDONUAPLUS #### [address] #### SPE, KARUNA,URINE, BIGG, HBCAB, ALDOLASE, RPR W RFX, HCV RX PCR, UPE RAND, HBSAB, QUANT TB, CHROMATIN, HBSAG #### [facility] , M-Leonid Not Observed Normal Not Observed [facility] Comment on above: Performed By: #### C RP, CK, CBC, CMP, T4F, ESR, TSH3, ADDONUAPLUS #### [place] [address] [place] #### SPE, KARUNA,URINE, BIGG, HBCAB, ALDOLASE, RPR W RFX, HCV RX PCR, UPE RAND, HBSAB, QUANT TB, CHROMATIN, HBSAG #### [facility] , SPE-Note Comment Normal . [facility] Comment on above: Result Comment: Prot ein electrophoresis scan will follow via computer, mail, or sugar cane planter machine operator delivery. Performed at: [address] [id number] Fire Protection Engineering Technician: Jasiel Key PhD, Phone: [phone] Performed By: #### C RP, CK, CBC, CMP, T4F, ESR, TSH3, ADDONUAPLUS #### [address] #### SPE, KARUNA,URINE, BIGG, HBCAB, ALDOLASE, RPR W RFX, HCV RX PCR, UPE RAND, HBSAB, QUANT TB, CHROMATIN, HBSAG #### [facility] , Protein Test strip (U) [Mass /Vol]Ordered By: Gordy Matthew on 03-09-2024 Protein (U) [Mass/Vol] Negative Negative [facility] Protein [Mass/volume] in Ser um or PlasmaOrdered By: Gordy Matthew on 03-09-2024 Protein [Mass/Vol] 7.1 g/dL Normal 6.0-8.5 [facility] Comment on above: Performed By: #### C RP, CK, CBC, CMP, T4F, ESR, TSH3, ADDONUAPLUS #### [address] #### SPE, KARUNA,URINE, BIGG, HBCAB, ALDOLASE, RPR W RFX, HCV RX PCR, UPE RAND, HBSAB, QUANT TB, CHROMATIN, HBSAG #### [facility] , QuantiFERON TB Goldon 2023 QFTB Criteria Comment Normal . [facility] Comment on above: Result [...] CBC, CMP, T4F, ESR, TSH3, ADDONUAPLUS #### [place] [address] [place] #### SPE, KARUNA,URINE, BIGG, HBCAB, ALDOLASE, RPR W RFX, HCV RX PCR, UPE RAND, HBSAB, QUANT TB, CHROMATIN, HBSAG #### [facility] , Quant TB Ag Value 0.00 Normal . [facility] Comment on above: Performed By: #### C RP, CK, CBC, CMP, T4F, ESR, TSH3, ADDONUAPLUS #### [place] [address] [place] #### SPE, KARUNA,URINE, BIGG, HBCAB, ALDOLASE, RPR W RFX, HCV RX PCR, UPE RAND, HBSAB, QUANT TB, CHROMATIN, HBSAG #### [facility] , Quant TB Gold Plus Negative Normal Negative [facility] Comment on above: Result [...] interferon gamma. Chemiluminescence immunoassay methodology Performed at: [id number] [id number] Fire Protection Engineering Technician: Jasiel Key PhD, Phone: [phone] PERFORMED BY: [place] [address] PATHOLOGIST MAGAZINE WRITER JOCELYN EDGE M.D. Performed By: #### C RP, CK, CBC, CMP, T4F, ESR, TSH3, ADDONUAPLUS #### [place] [address] [place] #### SPE, KARUNA,URINE, BIGG, HBCAB, ALDOLASE, RPR W RFX, HCV RX PCR, UPE RAND, HBSAB, QUANT TB, CHROMATIN, HBSAG #### [facility] , Quant TB2 Ag Value 0.00 Normal . [facility] Comment on above: Performed By: #### C RP, CK, CBC, CMP, T4F, ESR, TSH3, ADDONUAPLUS #### [facility] [address] #### SPE, KARUNA,URINE, BIGG, HBCAB, ALDOLASE, RPR W RFX, HCV RX PCR, UPE RAND, HBSAB, QUANT TB, CHROMATIN, HBSAG #### [facility] , Quantiferon Nil Value 0.00 Normal . [facility] Comment on above: Performed By: #### C RP, CK, CBC, CMP, T4F, ESR, TSH3, ADDONUAPLUS #### [facility] [address] #### SPE, KARUNA,URINE, BIGG, HBCAB, ALDOLASE, RPR W RFX, HCV RX PCR, UPE RAND, HBSAB, QUANT TB, CHROMATIN, HBSAG #### [facility] , Quantiferon TB Mitogen >10.00 Normal . [facility] Comment on above: Performed By: #### C RP, CK, CBC, CMP, T4F, ESR, TSH3, ADDONUAPLUS #### [facility] [address] #### SPE, KARUNA,URINE, BIGG, HBCAB, ALDOLASE, RPR W RFX, HCV RX PCR, UPE RAND, HBSAB, QUANT TB, CHROMATIN, HBSAG #### [facility] , RPR w/rfx to Quant TP Abson 03-09-2024 RPR, Rfx Quant RPR Non-Reactive Normal Non Reactive [facility] Comment on above: Result Comment: Perf ormed at: - [facility] [address] [id number] Fire Protection Engineering Technician: Jasiel Key PhD, Phone: [phone] PERFORMED BY: [place] [address] PATHOLOGIST MAGAZINE WRITER JOCELYN EDGE M.D. Performed By: #### C RP, CK, CBC, CMP, T4F, ESR, TSH3, ADDONUAPLUS #### [address] #### SPE, KARUNA,URINE, BIGG, HBCAB, ALDOLASE, RPR W RFX, HCV RX PCR, UPE RAND, HBSAB, QUANT TB, CHROMATIN, HBSAG #### [facility] , Serum globulin measurement b y calculation (mass/volume)Ordered By: Gordy Matthew on 03-09-2024 Globulin (S) [Mass/Vol] 2.9 g/dL Normal [facility] Comment on above: Performed By: #### C RP, CK, CBC, CMP, T4F, ESR, TSH3, ADDONUAPLUS #### [facility] [address] [place] [address] [place] #### SPE, KARUNA,URINE, BIGG, HBCAB, ALDOLASE, RPR W RFX, HCV RX PCR, UPE RAND, HBSAB, QUANT TB, CHROMATIN, HBSAG #### [facility] , Serum or plasma albumin/glob ulin mass ratioOrdered By: Gordy Matthew on 03-09-2024 Albumin/Globulin [Mass ratio] 1.4 {ratio} [facility] Comment on above: Performed By: #### C RP, CK, CBC, CMP, T4F, ESR, TSH3, ADDONUAPLUS #### [place] [address] [place] #### SPE, KARUNA,URINE, BIGG, HBCAB, ALDOLASE, RPR W RFX, HCV RX PCR, UPE RAND, HBSAB, QUANT TB, CHROMATIN, HBSAG #### [facility] , Serum or plasma anion gap de terminationOrdered By: Gordy Matthew on 03-09-2024 Anion gap [Moles/Vol] 9.8 mmol/L Normal 6.0-15.0 [facility] Comment on above: Performed By: #### C RP, CK, CBC, CMP, T4F, ESR, TSH3, ADDONUAPLUS #### [address] #### SPE, KARUNA,URINE, BIGG, HBCAB, ALDOLASE, RPR W RFX, HCV RX PCR, UPE RAND, HBSAB, QUANT TB, CHROMATIN, HBSAG #### [facility] , Sodium [Moles/volume] in Ser um or PlasmaOrdered By: Gordy Farooqrow on 03-09-2024 Sodium [Moles/Vol] 139 mmol/L Normal 136-145 [facility] Comment on above: Performed By: #### C RP, CK, CBC, CMP, T4F, ESR, TSH3, ADDONUAPLUS #### [address] #### SPE, KARUNA,URINE, BIGG, HBCAB, ALDOLASE, RPR W RFX, HCV RX PCR, UPE RAND, HBSAB, QUANT TB, CHROMATIN, HBSAG #### [facility] , Specific gravity Test strip (U) [Rel density]Ordered By: Gordy Matthew on 03-09-2024 Specific gravity (U) [Rel density] 1.013 1.001-1.030 [facility] Thyrotropin [Units/volume] i n Serum or PlasmaOrdered By: Gordy Matthew on 03-09-2024 TSH Qn 2.78 m[IU]/L Normal 0.45-5.33 [facility] Comment on above: Result Comment: PERF ORMED BY: [place] [address] PATHOLOGIST MAGAZINE WRITER JOCELYN EDGE M.D. Performed By: #### C RP, CK, CBC, CMP, T4F, ESR, TSH3, ADDONUAPLUS #### [place] [address] [place] #### SPE, KARUNA,URINE, BIGG, HBCAB, ALDOLASE, RPR W RFX, HCV RX PCR, UPE RAND, HBSAB, QUANT TB, CHROMATIN, HBSAG #### [facility] , Thyroxine (T4) free [Mass/vo lume] in Serum or PlasmaOrdered By: Gordy Matthew on 03-09-2024 Free T4 [Mass/Vol] 0.78 ng/dL Normal 0.61-1.12 [facility] Comment on above: Performed By: #### C RP, CK, CBC, CMP, T4F, ESR, TSH3, ADDONUAPLUS #### [facility] [address] [place] [address] #### SPE, KARUNA,URINE, BIGG, HBCAB, ALDOLASE, RPR W RFX, HCV RX PCR, UPE RAND, HBSAB, QUANT TB, CHROMATIN, HBSAG #### [facility] , Urea nitrogen [Mass/volume] in Serum or PlasmaOrdered By: Gordy Matthew on 03-09-2024 Urea nitrogen [Mass/Vol] 15 mg/dL Normal 01-06 [facility] Comment on above: Performed By: #### C RP, CK, CBC, CMP, T4F, ESR, TSH3, ADDONUAPLUS #### [facility] [address] [place] [address] [place] #### SPE, KARUNA,URINE, BIGG, HBCAB, ALDOLASE, RPR W RFX, HCV RX PCR, UPE RAND, HBSAB, QUANT TB, CHROMATIN, HBSAG #### [facility] , Urine appearanceOrdered By: Gordy Matthew on 03-09-2024 Appearance (U) Cloudy Critically abnormal Clear [facility] Comment on above: Order Comment: Name Collection Type:: Clean-Voided Midstream Performed By: #### C RP, CK, CBC, CMP, T4F, ESR, TSH3, ADDONUAPLUS #### [facility] [address] [place] [address] [place] #### SPE, KARUNA,URINE, BIGG, HBCAB, ALDOLASE, RPR W RFX, HCV RX PCR, UPE RAND, HBSAB, QUANT TB, CHROMATIN, HBSAG #### [facility] , Urobilinogen Test strip (U) [Mass/Vol]Ordered By: Gordy Matthew on 03-09-2024 Urobilinogen (U) [Mass/Vol] Normal mg/dL Normal [facility] pH of Urine by Test stripOrd ered By: Gordy Matthew on 03-09-2024 pH (U) 7.0 [pH] Normal 5.0-9.0 [facility] Comment on above: Order Comment: Name Collection Type:: Clean-Voided Midstream Performed By: #### C RP, CK, CBC, CMP, T4F, ESR, TSH3, ADDONUAPLUS #### [facility] [address] #### SPE, KARUNA,URINE, BIGG, HBCAB, ALDOLASE, RPR W RFX, HCV RX PCR, UPE RAND, HBSAB, QUANT TB, CHROMATIN, HBSAG #### [facility] , COVID/FLU/RSV RT-PCRon 06-14 SARS-CoV-2 (COVID-19) RNA VIVEK+probe Ql (Unsp spec) Negative [facility] Other COVID/FLU/RSV RT-PCR Negative [facility] Other COVID/FLU/RSV RT-PCR Positive [facility] Other Outside Colonoscopyon 2022 Outside Colonoscopy [id number] 0#[id number] Normal [facility] Reminderson 10-02-2022 Reminders - From: Kisha Samuel LPN To: GSN - Clinical; Sent: 10/02/2022 08:43:18 EDT Show up: 08/31/2032 07:00:00 EDT Subject: colonoscopy recall Due Date/Time: 10/01/2032 07:00:00 EDT Reminder/Recall Patient is due for screening colonoscopy 10/01/2032. Normal [facility] Consent for Procedure/Surger yon 09-11-2022 Consent for Procedure/Surgery [id number] #1.00CD:[address] [facility] Facesheeton 09-11-2022 Facesheet [id number] #1.00CD:[address] [facility] Pre-Certification Formon Pre-Certification Form [id number] 1#1.00CD:[address] [facility] Ambulatory Visit Summaryon 0 09-10-2022 Ambulatory [...] disease) Osteoarthritis Seasonal allergic rhinitis Normal [facility] Physician Referralon 023 Physician Referral [id number] #1.00CD:127 Normal [facility] Follow-Upon 05-15-2022 Follow-Up [id number] Brie Eagle 1955 F Date Provider Department Center 05/15/2022 TIMMY ROMAN MP ORTHO MPORTHO Family History Problem Relation Age of Onset Diabetes Mother Heart disease Mother Arthritis Mother No Known Problems Father Family Status - Relation Status Age at Mother Father Level of Service:34354 [place] OFFICE/OUTPATIENT ESTABLISHED LOW MDM 20-29 MIN Reason for Visit and Comments: Follow-up [653549] - Yearly follow up Normal [facility] XR DEXA BONE DENSITYon 04-28 XR [...] by: STEPHANIE RAYA Date: 2022-04-28 17:[address] [facility] MG MAMM SCREEN 3D ARCELIA CADon 04-23-2022 MG MAMM SCREEN 3D ARCELIA CAD Patient: BRIE EAGLE Exam Date: 04/23/2022 : 1955 Gender:F Ordering : DR ARETHA BREWSTER . Admission #: [id number] Family : Order #: [id number] CLICK HERE TO VIEW EXAM RADIOLOGY REPORT PROCEDURE: MAMMOGRAM SCREENING 3D BILATERAL CAD COMPARISON: MG MAMM SCREEN 3D ARCELIA CAD, 04/17/2021. INDICATIONS: Screening mammography Calculator Name NCI Breast Cancer Risk Assessment Tool 5 Year Breast Cancer Risk Not Reported. Lifetime Breast Cancer Risk Not Reported. Personal Breast Cancer No Personal Ovarian Cancer No Treatments None Family Cancers None LOCATION: [facility] BREAST COMPOSITION: Scattered areas fibroglandular [...] MD on 04/23/2022 at 13:10 Normal [facility] NM STRESS/REST MULTIon 04-10 NM STRESS/REST MULTI Patient: BRIE EAGLE Exam Date: 04/10/2022 : 1955 Gender:F Ordering : DR ARETHA BREWSTER . Admission #: [id number] Family : Order #: [id number] CLICK HERE TO VIEW EXAM RADIOLOGY REPORT [...] M.D. on 04/10/2022 at 13:53 Normal [facility] AMYLASEon 03-24-2022 Amylase [Catalytic activity/Vol] 51 U/L Normal 25-115 [facility] Comment on above: Performed By: #### A MY, LIPA, CMADM, HSTROPN #### [facility] [address] [place] [address] Dr. Christos Richardson CARDIAC MONA ADMITon 022 CK [Catalytic activity/Vol] 67 U/L Normal 26-192 [facility] Comment on above: Performed By: #### A MY, LIPA, CMADM, HSTROPN #### [facility] [address] [place] [address] Dr. Christos Richardson CK.MB [Mass/Vol] 0.93 ng/mL Normal <=3.60 [facility] Comment on above: Performed By: #### A MY, LIPA, CMADM, HSTROPN #### [facility] [address] [address] [address] Christos Richardson GAYATHRI 32 ng/mL Normal 9-82 [facility] Comment on above: Performed By: #### A MY, LIPA, CMADM, HSTROPN #### [facility] [address] [place] [address] Dr. Christos Richardson CBC AUTO DIFFon 03-24-2022 BASO # 0.1 103/ul Normal 0.0-0.1 [facility] Comment on above: Performed By: #### C BC ####[facility] [address] [place] [id number]. Christos Richardson Basophils/100 WBC (Bld) 0.7 % Normal 0.2-2.[address] [facility] Comment on above: Performed By: #### C BC ####[facility] [address] [place], [place] [address]Dr. Christos Richardson EO # 0.1 103/ul Normal 0.0-0.7 [facility] Comment on above: Performed By: #### C BC ####[facility] Irvbnise[address] [place], [place] [address]Dr. Christos Richardson Eosinophils/100 WBC (Bld) 0.8 % Critically low 0.9-7.0 [facility] Comment on above: Performed By: #### C BC ####[facility] B[address]ib[address] [place], [place] [address]Dr. Christos Richardson Erythrocyte distribution width (RBC) [Ratio] 13.4 % Normal 11.0-15.0 [facility] Comment on above: Performed By: #### C BC ####[facility] Cyhy[address]msg[address] [place], [place] [address]Dr. Christos Richardson Hematocrit (Bld) [Volume fraction] 40.9 % Normal 36.0-48.0 [facility] Comment on above: Performed By: #### C BC ####[facility] Gmfztydam[address] [place], [place] [address]Dr. Christos Richardson Hemoglobin (Bld) [Mass/Vol] 13.3 g/dL Normal 12.0-16.0 [facility] Comment on above: Performed By: #### C BC ####[facility] Ow[address] [place], [place] [address]Dr. Christos Richardson IG # 0.02 10e3/ul Normal 0.00-0.03 [facility] Comment on above: Performed By: #### C BC ####[facility] Ikq[address]unis[address] [place], [place] [address]Dr. Christos Richardson IG % 0.3 % Normal 0.0-0.5 [facility] Comment on above: Performed By: #### C BC ####[facility] [address] [place] [address]Dr. Christos Richardson LYMPH # 2.3 103/ul Normal 1.2-3.8 [facility] Comment on above: Performed By: #### C BC ####[facility] [address]ju[address] [place] [id number]. Christos Richardson Lymphocytes/100 WBC (Bld) 32.6 % Normal 20.5-60.0 [facility] Comment on above: Performed By: #### C BC ####[facility] [address]beef[address] [place] [address]Dr. Christos Richardson MANUAL DIFF REQ NO Normal [facility] Comment on above: Performed By: #### C BC ####[facility] Xrpsoizvsc[address] [place] [id number]. Christos Richardson MCH (RBC) [Entitic mass] 29.2 pg Normal 26.7-34.0 [facility] Comment on above: Performed By: #### C BC ####[facility] [address]mvihpxso[address] [place] [id number]. Christos Richardson MCHC (RBC) [Mass/Vol] 32.5 g/dL Normal 29.9-35.2 [facility] Comment on above: Performed By: #### C BC ####[facility] [address] [place] [id number]. Christos Richardson MCV (RBC) [Entitic vol] 89.9 fL Normal 81.0-99.[address] [facility] Comment on above: Performed By: #### C BC ####[facility] [address] [place] [address]Dr. Christos Richardson MONO # 1.0 103/ul Critically high 0.3-0.8 [facility] Comment on above: Performed By: #### C BC ####[facility] Sm[address]fmmqh[address] [place] [address]Dr. Christos Richardson Monocytes/100 WBC (Bld) 14.2 % Critically high 1.7-12. 0 [facility] Comment on above: Performed By: #### C BC ####[facility] F[address]ktp[address] [place] [address]Dr. Christos Richardson NEUT # 3.7 103/ul Normal 1.4-6.5 [facility] Comment on above: Performed By: #### C BC ####[facility] P[address]lj[address] [place] [address]Dr. Christos Richardson Neutrophils/100 WBC (Bld) 51.4 % Normal 43.0-75.0 [facility] Comment on above: Performed By: #### C BC ####[facility] [address] [place] [id number]. Christos Richardson Platelet mean volume (Bld) [Entitic vol] 9.7 fL Normal 9.5-13.5 [facility] Comment on above: Performed By: #### C BC ####[facility] [address] [place] [address]Dr. Christos Richardson PLT 271 103/ul Normal 150-450 [facility] Comment on above: Performed By: #### C BC ####[facility] [address] [place] [id number]. Christos Richardson RBC 4.55 106/ul Normal 4.20-5.40 [facility] Comment on above: Performed By: #### C BC ####[facility] [address]ijeuofu[address] [place] [id number]. Christos Richardson WBC 7.1 103/ul Normal 4.0-11.0 [facility] Comment on above: Performed By: #### C BC ####[facility] [address]arci[address] [place] [id number] Richardson LIPASEon 03-24-2022 Lipase [Catalytic activity/Vol] 104.0 U/L Normal 73.0-393.0 [facility] Comment on above: Performed By: #### A MY, LIPA, CMADM, HSTROPN #### [facility] [address] [place], [place] [address] Dr. Christos Richardson TROPONIN, HIGH SENSITIVITYon 03-24-2022 HSTROP 6.6 pg/mL Normal 4.0-51.3 [facility] Comment on above: Result Comment: CUT- OFF POINTS HAVE BEEN ESTABLISHED BASED ON THE FOURTH UNIVERSAL DEFINITIONS OF MYOCARDIAL INFARCTION. THE UPPER REFERENCE LIMIT (URL) OF TROPONIN, DEFINED THE 99TH PERCENTILE OF cTnI DISTRIBUTION IN A REFERENCE POPULATION, HAS BEEN CONFIRMED THE DECISION THRESHOLD FOR [place] DIAGNOSIS. Performed By: #### H STROPN ####[facility] [address] [place], [place] [address]BvDr. Christos Richardson HSTROP 6.3 pg/mL Normal 4.0-51.3 [facility] Comment on above: Result Comment: CUT- OFF POINTS HAVE BEEN ESTABLISHED BASED ON THE FOURTH UNIVERSAL DEFINITIONS OF MYOCARDIAL INFARCTION. THE UPPER REFERENCE LIMIT (URL) OF TROPONIN, DEFINED THE 99TH PERCENTILE OF cTnI DISTRIBUTION IN A REFERENCE POPULATION, HAS BEEN CONFIRMED THE DECISION THRESHOLD FOR [place] DIAGNOSIS. Performed By: #### A MY, LIPA, CMADM, HSTROPN #### [facility] [address] [address] [address] Christos Richardson XR CHEST 1 Von [...] ULISES CALDERON Date: 2022-03-24 13:53 Normal [facility] INSULINon 01-09-2022 Insulin 10.4 uIU/mL Normal 2.6-24.9 [facility] Comment on above: Performed By: #### I NSULIN #### [facility] [address] [address] [address] Christos Richardson CBC AUTO DIFFon 01-08-2022 BASO # 0.1 103/ul Normal 0.0-0.1 [facility] Comment on above: Performed By: #### C BC #### [facility] [address] [place] [address] Dr. Christos Richardson Basophils/100 WBC (Bld) 0.8 % Normal 0.2-2.[address] [facility] Comment on above: Performed By: #### C BC #### [facility] [address] [place] [address] Dr. Christos Richardson EO # 0.1 103/ul Normal 0.0-0.7 [facility] Comment on above: Performed By: #### C BC #### [facility] [address] [place] [address] Dr. Christos Richardson Eosinophils/100 WBC (Bld) 1.5 % Normal 0.9-7.0 [facility] Comment on above: Performed By: #### C BC #### [facility] [address] [place] [address] Dr. Christos Richardson Erythrocyte distribution width (RBC) [Ratio] 13.6 % Normal 11.0-15.0 [facility] Comment on above: Performed By: #### C BC #### [facility] [address] [place] [address] Dr. Christos Richardson Hematocrit (Bld) [Volume fraction] 40.4 % Normal 36.0-48.0 [facility] Comment on above: Performed By: #### C BC #### [facility] [address] [place] [address] Dr. Christos Richardson Hemoglobin (Bld) [Mass/Vol] 12.9 g/dL Normal 12.0-16.0 [facility] Comment on above: Performed By: #### C BC #### [facility] [address] [place] [address] Dr. Christos Richardson IG # 0.01 10e3/ul Normal 0.00-0.03 [facility] Comment on above: Performed By: #### C BC #### [facility] [address] [place] [address] Dr. Christos Richardson IG % 0.2 % Normal 0.0-0.5 [facility] Comment on above: Performed By: #### C BC #### [facility] [address] [address] [address] Christos Richardson LYMPH # 2.4 103/ul Normal 1.2-3.8 [facility] Comment on above: Performed By: #### C BC #### [facility] [address] [address] [address] Christos Richardson Lymphocytes/100 WBC (Bld) 39.7 % Normal 20.5-60.0 [facility] Comment on above: Performed By: #### C BC #### [facility] [address] [place] [address] Dr. Christos Richardson MANUAL DIFF REQ NO Normal [facility] Comment on above: Performed By: #### C BC #### [facility] [address] [place] [address] Dr. Christos Richardson MCH (RBC) [Entitic mass] 29.0 pg Normal 26.7-34.0 [facility] Comment on above: Performed By: #### C BC #### [facility] [address] [place] [address] Dr. Christos Richardson MCHC (RBC) [Mass/Vol] 31.9 g/dL Normal 29.9-35.2 [facility] Comment on above: Performed By: #### C BC #### [facility] [address] [place] [address] Dr. Christos Richardson MCV (RBC) [Entitic vol] 90.8 fL Normal 81.0-99.[address] [facility] Comment on above: Performed By: #### C BC #### [facility] [address] [place] [address] Dr. Christos Richardson MONO # 0.8 103/ul Normal 0.3-0.8 [facility] Comment on above: Performed By: #### C BC #### [facility] [address] [place] [address] Dr. Christos Richardson Monocytes/100 WBC (Bld) 13.5 % Critically high 1.7-12. 0 [facility] Comment on above: Performed By: #### C BC #### [facility] [address] [address] [address] Christos Richardson NEUT # 2.7 103/ul Normal 1.4-6.5 [facility] Comment on above: Performed By: #### C BC #### [facility] [address] [address] [address] Christos Richardson Neutrophils/100 WBC (Bld) 44.3 % Normal 43.0-75.0 [facility] Comment on above: Performed By: #### C BC #### [facility] [address] [address] [address] Christos Richardson Platelet mean volume (Bld) [Entitic vol] 10.4 fL Normal 9.5-13.5 [facility] Comment on above: Performed By: #### C BC #### [facility] [address] [place] [address] Dr. Christos Richardson PLT 287 103/ul Normal 150-450 [facility] Comment on above: Performed By: #### C BC #### [facility] [address] [address] [address] Christos Richardson RBC 4.45 106/ul Normal 4.20-5.40 [facility] Comment on above: Performed By: #### C BC #### [facility] [address] [address] [address] Christos Richardson WBC 6.1 103/ul Normal 4.0-11.0 [facility] Comment on above: Performed By: #### C BC #### [facility] [address] [address] [address] Christos Richardson FREE THYROXINE INDEX T7on FTI 2.00 Normal 1.30-4.50 [facility] Comment on above: Performed By: #### C MP, T7, LIPID, TSH ####[facility] [address] [place] [address]Dr. Christos Richardson T3U 35.0 % Normal 30.0-39.0 [facility] Comment on above: Performed By: #### C MP, T7, LIPID, TSH ####[facility] [address] [place] [id number]. Christos Richardson T4 [Mass/Vol] 5.70 ug/dL Normal 4.80-13.90 [facility] Comment on above: Performed By: #### C MP, T7, LIPID, TSH ####[facility] [address] [place] [id number]. Christos Richardson GLYCOHEMOGLOBIN A1Con 2021 ADA RECOMMENDATION SEE BELOW Normal [facility] Comment on above: Result Comment: ADA RECOMMENDED LIMIT 4.0 - 6.0 ADA THERAPEUTIC TARGET < 7.0 ACTION SUGGESTED > 7.0 Performed By: #### A 1C ####[facility] [address] [place] [address]Dr. Christos Richardson Glucose [Mass/Vol] 114 mg/dL Normal [facility] Comment on above: Performed By: #### A 1C ####[facility] [address] [place] [address]Dr. Christos Richardson HbA1c (Bld) [Mass fraction] 5.6 % Normal 4.5-6.2 [facility] Comment on above: Performed By: #### A 1C ####[facility] [address] [place] [address]Dr. Christos Richardson IRONon 01-08-2022 Iron [Mass/Vol] 100.0 ug/dL Normal 50.0-170.0 [facility] Comment on above: Performed By: #### I BLANCO ####[facility] [address] [place], [place] [address]Dr. Christos Richardson LIPID PROFILEon 01-08-2022 CHOL-HDL RATIO NORM SEE BELOW Normal [facility] Comment on above: Result Comment: 3.3 - 4.4 LOW RISK 4.4 - 7.1 AVERAGE RISK 7.1 - 11.0 MODERATE RISK >11.0 HIGH RISK Performed By: #### C MP, T7, LIPID, TSH ####[facility] [address] [place] [address]Dr. Christos Richardson Cholesterol [Mass/Vol] 187 mg/dL Normal <=200 Th [facility] Comment on above: Performed By: #### C MP, T7, LIPID, TSH ####[facility] [address] [place], [place] [address]Ys. Christos Richardson Cholesterol in HDL [Mass/Vol] 63 mg/dL Critically high 40-60 [facility] Comment on above: Performed By: #### C MP, T7, LIPID, TSH ####[facility] [address] [place] [address]Dr. Christos Richardson Cholesterol in LDL [Mass/Vol] 110.8 mg/dL Normal [facility] Comment on above: Performed By: #### C MP, T7, LIPID, TSH ####[facility] [address] [place] [address]Dr. Christos Richardson Cholesterol.total/Kylee sterol in HDL [Mass ratio] 3.0 {ratio} Normal [facility] Comment on above: Performed By: #### C MP, T7, LIPID, TSH ####[facility] [address] [place] [address]Dr. Christos Richardson HDL NORMAL > or = 60 mg/dl - LOW CARDIOVASCULAR RISK <40 mg/dl - HIGH CARDIOVASCULAR RISK Normal [facility] Comment on above: Performed By: #### C MP, T7, LIPID, TSH ####[facility] [address]if[address] [place] [address]Dr. Christos Richardson LDL CALC NORMAL SEE BELOW Normal [facility] Comment on above: Result Comment: <100 mg/dl OPTIMAL 100 - 129 mg/dl NEAR OR ABOVE OPTIMAL 130 - 159 mg/dl BORDERLINE HIGH 160 - 189 mg/dl HIGH >190 mg/dl VERY HIGH Performed By: #### C MP, T7, LIPID, TSH ####[facility] [address] [place] [address]Dr. Christos Richardson Triglyceride [Mass/Vol] 66 mg/dL Normal <=150 T [facility] Comment on above: Performed By: #### C MP, T7, LIPID, TSH ####[facility] [address] [place] [address]Dr. Christos Richardson VLDL CALC 13.2 mg/dL Normal [facility] Comment on above: Performed By: #### C MP, T7, LIPID, TSH ####[facility] [address] [place] [address]Dr. Christos Richardson PROF 14(COMP METB)on 022 Albumin [Mass/Vol] 3.4 g/dL Normal 3.4-5.0 [facility] Comment on above: Performed By: #### C MP, T7, LIPID, TSH ####[facility] [address] [place] [address]Dr. Christos Richardson Albumin/Globulin [Mass ratio] 0.9 {ratio} Normal [facility] Comment on above: Performed By: #### C MP, T7, LIPID, TSH ####[facility] [address] [place] [address]Dr. Christos Richardson ALP [Catalytic activity/Vol] 79 U/L Normal 46-116 [facility] Comment on above: Performed By: #### C MP, T7, LIPID, TSH ####[facility] [address] [place] [address]Dr. Christos Richardson ALT [Catalytic activity/Vol] 22 U/L Normal 14-59 [facility] Comment on above: Performed By: #### C MP, T7, LIPID, TSH ####[facility] [address]rec[address] [place] [address]Dr. Christos Richardson Anion gap [Moles/Vol] 11.5 mmol/L Normal [facility] Comment on above: Performed By: #### C MP, T7, LIPID, TSH ####[facility] [address] [place] [address]Dr. Christos Richardson AST [Catalytic activity/Vol] 16 U/L Normal 15-37 [facility] Comment on above: Performed By: #### C MP, T7, LIPID, TSH ####[facility] [address] [place] [address]Dr. Christos Richardson Bilirubin [Mass/Vol] 0.3 mg/dL Normal 0.2-1.0 [facility] Comment on above: Performed By: #### C MP, T7, LIPID, TSH ####[facility] [address] [place] [address]Dr. Christos Richardson Calcium [Mass/Vol] 9.1 mg/dL Normal 8.5-10.1 [facility] Comment on above: Performed By: #### C MP, T7, LIPID, TSH ####[facility] [address] [place] [address]Dr. Christos Richarsdon Chloride [Moles/Vol] 106 mmol/L Normal 98-107 [facility] Comment on above: Performed By: #### C MP, T7, LIPID, TSH ####[facility] [address] [place] [address]Dr. Christos Richardson CO2 [Moles/Vol] 27.7 mmol/L Normal 21.0-32.0 [facility] Comment on above: Performed By: #### C MP, T7, LIPID, TSH ####[facility] [address] [place] [address]Dr. Christos Richardson Creatinine [Mass/Vol] 0.75 mg/dL Normal 0.55-1.02 [facility] Comment on above: Performed By: #### C MP, T7, LIPID, TSH ####[facility] [address] [place] [address]Dr. Christos Richardson EGFR-AF NIGERIAN >60 Normal >=60 [facility] Comment on above: Performed By: #### C MP, T7, LIPID, TSH ####[facility] [address] [place] [address]Dr. Christos Richardson EGFR-NON AF NIGERIAN >60 Normal >=60 [facility] Comment on above: Performed By: #### C MP, T7, LIPID, TSH ####[facility] [address] [place] [address]Dr. Christos Richardson Globulin (S) [Mass/Vol] 3.9 g/dL Normal T [facility] Comment on above: Performed By: #### C MP, T7, LIPID, TSH ####[facility] [address] [place] [address]Dr. Christos Richardson Glucose [Mass/Vol] 95 mg/dL Normal 74-106 [facility] Comment on above: Performed By: #### C MP, T7, LIPID, TSH ####[facility] [address]ymwf[address] [place] [address]Dr. Christos Richardson Potassium [Moles/Vol] 4.2 mmol/L Normal 3.5-5.1 [facility] Comment on above: Performed By: #### C MP, T7, LIPID, TSH ####[facility] [address]rxrn[address] [place] [address]Dr. Christos Richardson Protein [Mass/Vol] 7.3 g/dL Normal 6.4-8.2 [facility] Comment on above: Performed By: #### C MP, T7, LIPID, TSH ####[facility] [address] [place] [address]Dr. Christos Richardson Sodium [Moles/Vol] 141 mmol/L Normal 136-145 [facility] Comment on above: Performed By: #### C MP, T7, LIPID, TSH ####[facility] [address]ljyzd[address] [place] [address]Dr. Christos Richardson Urea nitrogen [Mass/Vol] 15.0 mg/dL Normal 7.0-18.0 [facility] Comment on above: Performed By: #### C MP, T7, LIPID, TSH ####[facility] [address]ne[address] [place] [address]Dr. Christos Richardson Urea nitrogen/Creatinine [Mass ratio] 20.0 mg/mg Normal [facility] Comment on above: Performed By: #### C MP, T7, LIPID, TSH ####[facility] [address]ph[address] [place] [address]Dr. Christos Richardson TSHon 01-08-2022 TSH 3.880 uIU/mL Critically high 0.358-3.740 [facility] Comment on above: Performed By: #### C MP, T7, LIPID, TSH ####[facility] [address] [place] [address]Dr. Christos Richardson HIP LEFT 1 OR 2 VWS WITH PEL VISon 05-29-2021 HIP LEFT 1 OR 2 VWS WITH PELVIS [facility] Department of Radiology 64 [place] [id number] Patient Name: BRIE EAGLE : 1955 [...] prosthesis. Electronically signed: Eder Crowder. Transcribed by: [email or web address], User Resident: EDER CROWDER Electronically Signed by: EDER CROWDER @ 05/30/2021 12:27 PM I personally read this/these film(s) with this resident Normal [facility] Comment on above: Order Comment: evalu ate Vital Signs Date Time Vital Sign Value Performing Clinician Facility 06-14-2023 09:30-0500 Body height 162.56 cm Sarah Sargent Other [facility] Other 06-14-2023 09:30-0500 Body mass index (BMI) [Ratio] 30.65 kg/m2 Sarah Sargent Other [facility] Other 06-14-2023 09:30-0500 Body temperature 98.8 [degF] Sarah Sargent Other [facility] Other 06-14-2023 09:30-0500 Body weight 81.01 kg Sarah Sargent Other [facility] Other 06-14-2023 09:30-0500 Diastolic blood pressure 67 mm[Hg] Sarah Mensahler Other [facility] Other 06-14-2023 09:30-0500 Respiratory rate 16 /min Sarah Sargent Other [facility] Other 06-14-2023 09:30-0500 SaO2% (BldA) [Mass fraction] 96 % Sarah Sargent Other [facility] Other 06-14-2023 09:30-0500 Systolic blood pressure 129 mm[Hg] Sarah Sargent Other [facility] Other 09-10-2022 15:17-0400 Blood Pressure Location Lui GAMINO [facility] 09-10-2022 15:17-0400 Diastolic blood pressure 64 mm[Hg] Lui GAMINO [facility] 09-10-2022 15:17-0400 Heart rate 72 /min Lui GAMINO [facility] 09-10-2022 15:17-0400 Respiratory rate 16 /min Lui GAMINO [facility] 09-10-2022 15:17-0400 Systolic blood pressure 138 mm[Hg] Lui GAMINO [facility] 11-12-2021 17:50-0400 Body height 162.56 cm Olivia Dean Other [facility] Other 11-12-2021 17:50-0400 Body mass index (BMI) [Ratio] 27.46 kg/m2 Olivia Dianne Other [facility] Other 11-12-2021 17:50-0400 Body temperature 97.8 [degF] Olivia Dean Other [facility] Other 11-12-2021 17:50-0400 Body weight 72.58 kg Olivia Dianne Other [facility] Other 11-12-2021 17:50-0400 Diastolic blood pressure 59 mm[Hg] Olivia Dianne Other [facility] Other 11-12-2021 17:50-0400 Respiratory rate 16 /min Olivia Dean Other [facility] Other 11-12-2021 17:50-0400 SaO2% (BldA) [Mass fraction] 98 % Olivia Dean Other [facility] Other 11-12-2021 17:50-0400 Systolic blood pressure 130 mm[Hg] Olivia Dean Other [facility] Other Encounters Encounter Date Encounter Type Care Provider Facility Start: 03-09-2024 End: 03-09-2024 Patient encounter procedure MD Aretha Brewster Work Phone: [facility] [address] Work Phone: Start: 03-09-2024 End: 03-09-2024 ambulatory MD Aretha Brewster Work Phone: [facility] Work Phone: Start: 01-27-2024 End: 01-27-2024 ambulatory EUGENIO H TIMMIS Not Available Start: 01-04-2024 End: 01-04-2024 ambulatory EUGENIO H TIMMIS Not Available Start: 09-01-2023 End: 09-01-2023 ambulatory EUGENIO H TIMMIS Not Available Start: 06-14-2023 End: 06-14-2023 ambulatory Sarah Sargent Other [facility] Other Start: 06-14-2023 Office outpatient vi sit [...] Start: 05-15-2022 End: 05-16-2022 ambulatory TIMMY TINSLEY [facility] Start: 04-28-2022 End: 04-29-[address] ARETHA BREWSTER . Facility:[facility] Start: 04-23-2022 End: 04-24-[address] ARETHA BREWSTER . Facility:[facility] Start: 04-10-2022 End: 04-11-[address] ARETHA BREWSTER . Facility:[facility] Start: 03-24-2022 End: 03-24-2022 ambulatory JESSICA YAZ . Facility:[facility] Start: 01-14-2022 Encounter for genera l adult medical examination without abnormal findings DR ARETHA BREWSTER . [facility] Start: 01-08-2022 End: 01-09-[address] ARETHA BREWSTER . Facility:[facility] Start: 01-08-2022 End: 01-09-2022 Encounter for general adult medical examination without abnormal findings DR ARETHA BREWSTER . Facility:[facility] Start: 11-12-2021 End: 11-12-2021 ambulatory Olivia Dean Other [facility] Other Start: 11-12-2021 Office outpatient vi sit 15 minutes Olivia Dean [facility] Procedures Date Procedure Procedure [...] 03-09-2024 Hepatitis B core ant ibody measurement [facility] Start: 03-09-2024 [facility] 24 hour urine measurement [facility] Albumin [Mass/volume ] in Serum or Plasma [facility] Albumin/Globulin ratio [facility] Aldolase measurement [facility] Chromatin Ab [Units/ volume] in Serum or Plasma [facility] Electrophoresis: [id number] [facility] Electrophoresis: [id number] [facility] Electrophoresis: beta-globulin [facility] Electrophoresis: gamma globulin [facility] Globulin [Mass/volume] in Serum [facility] Hepatitis B virus ortiz rface Ab [Presence] in Serum [facility] Hepatitis B virus ortiz rface Ag [Presence] in Serum or Plasma by Immunoassay [facility] Hepatitis C virus Ig G Ab [Presence] in Serum or Plasma by Immunoassay [facility] Homogenous nuclear A b pattern [Titer] in Serum [facility] Immunofixation for Urine [facility] Interferon gamma assay [facility] Measurement of monoc lonal protein concentration [facility] Mycobacterium tuberc ulosis stimulated gamma interferon [Interpretation] in Blood Qualitative [facility] Mycobacterium tuberc ulosis stimulated gamma interferon release by CD4+ and CD8+ T-cells [Units/volume] corrected for background in Blood [facility] Mycobacterium tuberc ulosis tuberculin stimulated gamma interferon [Presence] in Blood [facility] Nuclear Ab [Titer] in Serum [facility] Protein [Mass/volume ] in Serum or Plasma [facility] Protein [Mass/volume] in Urine [facility] Reagin Ab [Presence] in Serum by RPR [facility] Immunizations Immunization Date Immunization Notes Care Provider Fa cili 04-15-2022 influenza virus vaccine, unspecified formulation Lui GAMINO [facility] 04-14-2022 SARS-CoV-2 (COVID-19 ) [id number] Lui GAMINO [facility] 02-10-2022 SARS-CoV-2 mRNA (teebqboytce-yeur-otpnk se) vaccine Lui GAMINO [facility] 08-26-2021 SARS-CoV-2 mRNA (thxfrypajdh-wmbd-gygvk se) vaccine Lui GAMINO [facility] [place] 02-25-2021 SARS-CoV-2 (COVID-19 ) mRNA BNT-162b2 vax Lui GAMINO [facility] [place] 02-04-2021 SARS-CoV-2 (COVID-19 ) mRNA BNT-162b2 vax Lui GAMINO [facility] [place] Payers Date Payer Category Payer Self-pay 1958 Medicare [id number] 1955 Unknown [id number] 2.16.84 [id number] 1955 Unknown [id number] 2.16.84 [id number] 1955 Unknown [id number] 2.16.84 0.1.496774.3.579.2.593 1955 Unknown [id number] 2.16.84 0.1.355017.3.579.2.593 1955 Unknown [id number] 2.16.84 0.1.246925.3.579.2.593 1955 Unknown [id number] 2.16.84 0.1.523948.3.579.2.593 1955 Unknown [id number] 2.16.84 0.1.225591.3.579.2.593 1955 Unknown [id number] 2.16.8 40.1.485561.3.579.2.727 1955 Unknown [id number] 2.16.8 40.1.580689.3.579.2.727 1955 Unknown [id number] 2.16.84 0.1.973184.3.579.2.1259 1955 Unknown [id number] 2.16.84 0.1.759270.3.579.2.1259 1955 Unknown [id number] 2.16.84 0.1.985515.3.579.2.1259 Private Health Insurance [id number] Unknown [id number] 2.16.8 40.1.199179.3.579.2.531 Social History Date Type Detail Facility Sex Assigned At [facility]: 09-10-2022 Tobacco smoking status Ex-smoker (fi nding) [facility] Tobacco smoking status Never [facility] [place] Start: 1955 Sex Assigned At Female F [facility] Functional Status Date Assessment Result Facility 09-10-2022 Functional Status N/A [facility] Clinical Notes 11-12-2021 to 06-14-2023 [...] previous rx of steroids. Use rx of [place] as directed. Discussed importance of adequate hydration [...] plan. Patient sent home in stable condition. [facility] Other 04-19-2023 NoteOPERATIVE NOTE OPERATION DATE: 10/01/2022 ADDENDUM: Please add to the operative report - Follow up screening colonoscopy should be in 10 years.[id number] NoteOPERATIVE NOTE OPERATION DATE: 10/01/2022 PREOPERATIVE DIAGNOSIS: [...] room in good condition. CC: Aretha Brewster M.D.[facility]03-29-2023 NoteChief Complaint consultation for screening colonoscopy HPI [...] Sister. Immunizations Vaccin (more content not included)...[facility]Result Comment: Electronically Signed By: HANNY HERNANDEZ, Lui Moeller\Date and Time Signed: 09/10/22 16:09 [id number] NoteOrthopaedic Surgery Outpatient Visit Note Encounter Date: [...] incisional issues. 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) [facility] Other Evaluation + Plan note No data available for this section [facility] [place] Evaluation noteNo assessment information available [facility] Work Phone: [facility] Narrative - Reported* Type Description Date Medical History arthritis Surgical History pyloniadal cyst Surgical History both knee Surgical History breast reduction Surgical History tubal ligation Surgical History Total hip replacement Hospitalization History see above surg hx [facility] Other [facility] Narrative - Reported* Type Description Date Medical History arthritis Medical History GERD Surgical History pyloniadal cyst Surgical History both knee Surgical History breast reduction Surgical History tubal ligation Surgical History Total hip replacement Hospitalization History see above surg [facility] Discharge instructions No data available for this section [facility] [place] Progress note No data available for this [...] and content) DATE CREATED AUTHOR 10/25/2021 [facility] DATE CREATED AUTHOR AUTHOR'S ORGANIZ ATION 05/17/2022 [facility] DATE CREATED AUTHOR AUTHOR'S ORGANIZ ATION 10/10/2022 [facility] DATE CREATED AUTHOR AUTHOR'S ORGANIZ ATION 10/10/2022 [facility] DATE CREATED AUTHOR AUTHOR'S ORGANIZ ATION 01/28/2024 [facility] DATE CREATED AUTHOR AUTHOR'S ORGANIZ ATION 03/20/2024 [facility] REASON FOR VISIT (unrecogniz [...] BE BASED ON THE PRIMARY CLINICAL RECORDS. [employer] provides no warranty or guarantee of the accuracy or completeness of information in this document.
[2024-05-17 07:12] LABS: Basophils Absolute Auto 0.1 10^3/uL (0.0-0.1); Eosinophils Absolute Auto 0.1 10^3/uL (0.0-0.7); Eosinophils Percent Auto 1.4 % (0.9-7.0); Hematocrit 43.3 % (36.0-48.0); Hemoglobin 13.9 g/dL (12.0-16.0); Immature Granulocytes Abs Auto 0.01 10^3/uL (0.00-0.03); Immature Granulocytes Pct Auto 0.2 % (0.0-0.5); Lymphocytes Absolute Auto 2.4 10^3/uL (1.2-3.8); Lymphocytes Percent Auto 41.1 % (20.5-60.0); Mean Corpuscular HGB Conc 32.1 g/dL (29.9-35.2); Mean Corpuscular Volume 90.2 fL (81.0-99.0); Mean Platelet Volume 9.7 fL (9.5-13.5); Monocytes Absolute Auto 0.8 10^3/uL (0.3-0.8); Monocytes Percent Auto 13.9 % (1.7-12.0); Neutrophils Absolute Auto 2.5 10^3/uL (1.4-6.5); Neutrophils Percent Auto 42.4 % (43.0-75.0); Platelet Count 299 10^3/uL (150-450); Red Cell Distribution Width 13.1 % (11.0-15.0); White Blood Count 5.8 10^3/uL (4.0-11.0)
[2024-05-17 07:34] LABS: Estimated Average Glucose 120 mg/dL; Glycohemoglobin A1C 5.8 % (4.5-6.2)
[2024-05-17 08:16] LABS: Alanine Aminotransferase 34 U/L (14-59); Albumin Globulin Ratio 0.9; Albumin Level 3.4 g/dL (3.4-5.0); Alkaline Phosphatase 84 U/L (46-116); Anion Gap 13.3; Aspartate Amino Transferase 20 U/L (15-37); BUN Creatinine Ratio 15.5; Bilirubin Total 0.4 mg/dL (0.2-1.0); Calcium 9.2 mg/dL (8.5-10.1); Carbon Dioxide 29.8 mmol/L (21.0-32.0); Chloride 104 mmol/L (98-107); Chol HDL Ratio 2.7; Cholesterol 204 mg/dL (<=200); Estimated GFR (African America >60 (>=60 mL/min/1.73m^2); Estimated GFR (Non-African Ame 57 (>=60 mL/min/1.73m^2); Free T3 2.88 pg/mL (2.18-3.98); Globulin 3.8 g/dL; Glucose 99 mg/dL (74-106); HDL Cholesterol 75 mg/dL (40-60); Potassium 4.1 mmol/L (3.5-5.1); Sodium 143 mmol/L (136-145); Thyroid Stimulating Hormone 4.292 uIU/mL (0.358-3.740); Total Protein 7.2 g/dL (6.4-8.2); Triglycerides 85 mg/dL (<=150)
== END 2024-05-17 06:43 | disposition home or self-care (01) ==
LOC: LAB 06:44
PROVIDERS: PCP Family Medicine; Visit Provider Family Medicine
DX: K11.20 Sialoadenitis, unspecified (principal); K21.9 Gastro-esophageal reflux disease without esophagitis; R00.1 Bradycardia, unspecified; M17.9 Osteoarthritis of knee, unspecified; E78.5 Hyperlipidemia, unspecified; R53.83 Other fatigue; R73.09 Other abnormal glucose; I10 Essential (primary) hypertension; D64.9 Anemia, unspecified; E03.9 Hypothyroidism, unspecified
CPT/HCPCS: 36415; 80053; 80061; 83036; 83540; 84436; 84443; 84481; 85025

== ENCOUNTER 2024-06-27 09:25 | Outpatient (OUT) | payer MEDICARE, SELFPAY ==
--- OUTSIDE RECORDS SUMMARY | 2024-06-27 09:50 | XMS_ITS | CCD ---
Author Organization [facility] Providers Care [employer] Recruiter Name Role Phone Olivia Dean Unavailable TIMMY [...] Unavailable MD Aretha Brewster Primary Care Provider [phone] MD Gordy Matthew Attending Provider Gordy Matthew Admitting Unavailable Gordy Matthew Attending Unavailable Aretha Brewster Primary Care Unavailable Allergies Allergy Classification Reported Allergen(s) Allergy Type Date of Onset Reaction(s) Facility (4 sources) Erythromycin; Translations: [erythromycin] Drug Allergy GI upset [facility] [place] (6 sources) Latex; Translations: [LATEX] Propensity to adverse reactions 2 Inflammatory dermatosis (disorder) [facility] Repository (3 sources) Penicillin G Drug Allergy 3 anaphylaxis [facility] (3 sources) Penicillins; Translations: [PENICILLINS] Propensity to adverse reactions to drug (disorder) 2 Anaphylaxis (disorder) [facility] (4 sources) ERYTHROMYCIN BASE; Translations: [ERYTHROMYCIN BASE] Propensity to adverse reactions to drug (disorder) 2 GI upset [facility] (1 source) natural latex rubber Drug allergy (disorder) 3 [facility] Repository (1 source) Penicillin Drug Allergy [facility] (1 source) Latex Drug allergy (disorder) 3 [facility] Repository (1 source) Penicillin Drug Allergy 3 [facility] Repository Medications Current Medications Medication [...] 1.5 mg/ml oral solution (1 source) Uncompetitive B-tfcnkh-O-aspartat e 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, Sigma-1 Agonist Start: 06-14-2023 take 10 mL by mouth every eight hours Saxe DM 7.5-7.5 MG/5ML 10 mL Orally every [...] 08-29-2022 Chronic 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 [facility] Comment on above: Result Comment: Nega tive <1:80 Borderline 1:80 Positive >1:80 ICAP nomenclature: AC-0 For more information about Hep-2 cell patterns use ANApatterns.org, the official website for the International Consensus on Antinuclear Antibody (BIGG) Patterns (ICAP). Performed at: - [facility] [id number] Rubber Roller Grinder: Jasiel Key PhD, Phone: [phone] Performed By: #### C RP, CK, CBC, CMP, T4F, ESR, TSH3, ADDONUAPLUS #### [address] #### SPE, KARUNA,URINE, BIGG, HBCAB, ALDOLASE, RPR W RFX, HCV RX PCR, UPE RAND, HBSAB, QUANT TB, CHROMATIN, HBSAG #### [facility] , Alanine aminotransferase [En zymatic activity/volume] in Serum or PlasmaOrdered By: Gordy Matthew on 03-09-2024 ALT [Catalytic activity/Vol] 15 U/L Normal 7-52 [facility] Comment on above: Performed By: #### C RP, CK, CBC, CMP, T4F, ESR, TSH3, ADDONUAPLUS #### [facility] [address] [place] [address] #### SPE, KARUNA,URINE, BIGG, HBCAB, ALDOLASE, RPR W RFX, HCV RX PCR, UPE RAND, HBSAB, QUANT TB, CHROMATIN, HBSAG #### [facility] , Albumin [Mass/volume] in Ser um or Plasma by Bromocresol green (BCG) dye binding methoOrdered By: Gordy Matthew on 03-09-2024 Albumin BCG dye [Mass/Vol] 4.2 g/dL 3.5-5.7 [facility] Aldolaseon 03-09-2024 Aldolase 3.6 U/L Normal 3.3-10.3 [facility] Comment on above: Result Comment: Perf ormed at: CB - [facility] [address] [id number] Rubber Roller Grinder: Jasiel Key PhD, Phone: [phone] PERFORMED BY: [place] [address] PATHOLOGIST STEREO OPERATOR JOCELYN EDGE M.D. Performed By: #### C RP, CK, CBC, CMP, T4F, ESR, TSH3, ADDONUAPLUS #### [facility] [address] [place] [address] [place] #### SPE, KARUNA,URINE, BIGG, HBCAB, ALDOLASE, RPR W RFX, HCV RX PCR, UPE RAND, HBSAB, QUANT TB, CHROMATIN, HBSAG #### [facility] , Alkaline phosphatase [Enzyma tic activity/volume] in Serum or PlasmaOrdered By: Gordy Matthew on 03-09-2024 ALP [Catalytic activity/Vol] 77 U/L Normal 34-104 [facility] Comment on above: Performed By: #### C RP, CK, CBC, CMP, T4F, ESR, TSH3, ADDONUAPLUS #### [address] #### SPE, KARUNA,URINE, BIGG, HBCAB, ALDOLASE, RPR W RFX, HCV RX PCR, UPE RAND, HBSAB, QUANT TB, CHROMATIN, HBSAG #### [facility] , Aspartate aminotransferase [ Enzymatic activity/volume] in Serum or PlasmaOrdered By: Gordy Matthew on 03-09-2024 AST [Catalytic activity/Vol] 13 U/L Normal 13-39 [facility] Comment on above: Performed By: #### C RP, CK, CBC, CMP, T4F, ESR, TSH3, ADDONUAPLUS #### [facility] [address] [place] [address] [place] #### SPE, KARUNA,URINE, BIGG, HBCAB, ALDOLASE, RPR W RFX, HCV RX PCR, UPE RAND, HBSAB, QUANT TB, CHROMATIN, HBSAG #### [facility] , Automated basophil %Ordered By: Gordy Matthew on 03-09-2024 Basophils/100 WBC (Bld) 0.5 % Normal . [facility] Comment on above: Performed By: #### C RP, CK, CBC, CMP, T4F, ESR, TSH3, ADDONUAPLUS #### [place] [address] [place] #### SPE, KARUNA,URINE, BIGG, HBCAB, ALDOLASE, RPR W RFX, HCV RX PCR, UPE RAND, HBSAB, QUANT TB, CHROMATIN, HBSAG #### [facility] , Automated basophil countOrde red By: Gordy Matthew on 03-09-2024 Basophils (Bld) [#/Vol] 0.1 10*3/uL Normal 0.0-0.2 [facility] Comment on above: Performed By: #### C RP, CK, CBC, CMP, T4F, ESR, TSH3, ADDONUAPLUS #### [facility] [address] [place] [address] #### SPE, KARUNA,URINE, BIGG, HBCAB, ALDOLASE, RPR W RFX, HCV RX PCR, UPE RAND, HBSAB, QUANT TB, CHROMATIN, HBSAG #### [facility] , Automated blood monocyte cou ntOrdered By: Gordy Matthew on 03-09-2024 Monocytes (Bld) [#/Vol] 1.0 10*3/uL High 0.0-0.8 [facility] Comment on above: Performed By: #### C RP, CK, CBC, CMP, T4F, ESR, TSH3, ADDONUAPLUS #### [address] #### SPE, KARUNA,URINE, BIGG, HBCAB, ALDOLASE, RPR W RFX, HCV RX PCR, UPE RAND, HBSAB, QUANT TB, CHROMATIN, HBSAG #### [facility] , Automated eosinophil %Ordere d By: Gordy Matthew on 03-09-2024 Eosinophils/100 WBC (Bld) 0.4 % Normal . [facility] Comment on above: Performed By: #### C RP, CK, CBC, CMP, T4F, ESR, TSH3, ADDONUAPLUS #### [facility] [address] [place] [address] [place] #### SPE, KARUNA,URINE, BIGG, HBCAB, ALDOLASE, RPR W RFX, HCV RX PCR, UPE RAND, HBSAB, QUANT TB, CHROMATIN, HBSAG #### [facility] , Automated eosinophil countOr dered By: Gordy Matthew on 03-09-2024 Eosinophils (Bld) [#/Vol] 0.0 10*3/uL Normal 0.0-0.45 [facility] Comment on above: Performed By: #### C RP, CK, CBC, CMP, T4F, ESR, TSH3, ADDONUAPLUS #### [facility] [address] [place] [address] [place] #### SPE, KARUNA,URINE, BIGG, HBCAB, ALDOLASE, RPR W RFX, HCV RX PCR, UPE RAND, HBSAB, QUANT TB, CHROMATIN, HBSAG #### [facility] , Automated monocyte %Ordered By: Gordy Vipul on 03-09-2024 Monocytes/100 WBC (Bld) 8.5 % Normal . [facility] Comment on above: Performed By: #### C RP, CK, CBC, CMP, T4F, ESR, TSH3, ADDONUAPLUS #### [facility] [address] [place] [address] [place] #### SPE, KARUNA,URINE, BIGG, HBCAB, ALDOLASE, RPR W RFX, HCV RX PCR, UPE RAND, HBSAB, QUANT TB, CHROMATIN, HBSAG #### [facility] , Automated neutrophil %Ordere d By: Gordy Matthew on 03-09-2024 Neutrophils/100 WBC (Bld) 66.2 % Normal . [facility] Comment on above: Performed By: #### C RP, CK, CBC, CMP, T4F, ESR, TSH3, ADDONUAPLUS #### [facility] [address] [place] [address] [place] #### SPE, KARUNA,URINE, BIGG, HBCAB, ALDOLASE, RPR W RFX, HCV RX PCR, UPE RAND, HBSAB, QUANT TB, CHROMATIN, HBSAG #### [facility] , Bacteria [Presence] in Urine by AutomatedOrdered By: Gordy Matthew on 03-09-2024 Bacteria Auto Ql (U) Rare [HPF] None Seen [facility] Bilirubin Test strip Ql (U)O rdered By: Gordy Matthew on 03-09-2024 Bilirubin Ql (U) Negative Negative [facility] Bilirubin.total [Mass/volume ] in Serum or PlasmaOrdered By: Gordy Matthew on 03-09-2024 Bilirubin [Mass/Vol] 0.4 mg/dL Normal 0.3-1.0 [facility] Comment on above: Performed By: #### C RP, CK, CBC, CMP, T4F, ESR, TSH3, ADDONUAPLUS #### [facility] [address] [place] [address] #### SPE, KARUNA,URINE, BIGG, HBCAB, ALDOLASE, RPR W RFX, HCV RX PCR, UPE RAND, HBSAB, QUANT TB, CHROMATIN, HBSAG #### [facility] , C reactive protein [Mass/vol ume] in Serum or PlasmaOrdered By: Gordy Matthew on 03-09-2024 CRP [Mass/Vol] < 0.5 mg/dL 0.0-0.5 [facility] C-Reactive Proteinon 024 CRP [Mass/Vol] mg/L Normal 0.0-0.5 [facility] Comment on above: Performed By: #### C RP, CK, CBC, CMP, T4F, ESR, TSH3, ADDONUAPLUS #### [place] [address] [place] #### SPE, KARUNA,URINE, BIGG, HBCAB, ALDOLASE, RPR W RFX, HCV RX PCR, UPE RAND, HBSAB, QUANT TB, CHROMATIN, HBSAG #### [facility] , Calcium [Mass/volume] in Ser um or PlasmaOrdered By: Gordy Matthew on 03-09-2024 Calcium [Mass/Vol] 10.6 mg/dL High 8.6-10.3 [facility] Comment on above: Performed By: #### C RP, CK, CBC, CMP, T4F, ESR, TSH3, ADDONUAPLUS #### [facility] [address] [place] [address] [place] #### SPE, KARUNA,URINE, BIGG, HBCAB, ALDOLASE, RPR W RFX, HCV RX PCR, UPE RAND, HBSAB, QUANT TB, CHROMATIN, HBSAG #### [facility] , Carbon dioxide, total [Moles /volume] in Serum or PlasmaOrdered By: Gordy Matthew on 03-09-2024 CO2 [Moles/Vol] 30.4 mmol/L Normal 21.0-31.0 [facility] Comment on above: Performed By: #### C RP, CK, CBC, CMP, T4F, ESR, TSH3, ADDONUAPLUS #### [facility] [address] [place] [address] [place] #### SPE, KARUNA,URINE, BIGG, HBCAB, ALDOLASE, RPR W RFX, HCV RX PCR, UPE RAND, HBSAB, QUANT TB, CHROMATIN, HBSAG #### [facility] , Chloride [Moles/volume] in S billy or PlasmaOrdered By: Gordy Matthew on 03-09-2024 Chloride [Moles/Vol] 103 mmol/L Normal 98-107 [facility] Comment on above: Performed By: #### C RP, CK, CBC, CMP, T4F, ESR, TSH3, ADDONUAPLUS #### [facility] [address] [place] [address] [place] #### SPE, KARUNA,URINE, BIGG, HBCAB, ALDOLASE, RPR W RFX, HCV RX PCR, UPE RAND, HBSAB, QUANT TB, CHROMATIN, HBSAG #### [facility] , Chromatin Antibodyon 024 Chromatin Antibody <0.2 Normal 0.0-0.9 [facility] Comment on above: Result Comment: Perf ormed at: CB - [facility] [address] [id number] Rubber Roller Grinder: Jasiel Key PhD, Phone: [phone] Performed By: #### C RP, CK, CBC, CMP, T4F, ESR, TSH3, ADDONUAPLUS #### [facility] [address] [place] [address] [place] #### SPE, KARUNA,URINE, BGIG, HBCAB, ALDOLASE, RPR W RFX, HCV RX PCR, UPE RAND, HBSAB, QUANT TB, CHROMATIN, HBSAG #### [facility] , Color of Urine by AutoOrdere d By: Gordy Matthew on 03-09-2024 Color (U) Light-yellow Normal Yellow [facility] Comment on above: Order Comment: Name Collection Type:: Clean-Voided Midstream Performed By: #### C RP, CK, CBC, CMP, T4F, ESR, TSH3, ADDONUAPLUS #### [address] #### SPE, KARUNA,URINE, BIGG, HBCAB, ALDOLASE, RPR W RFX, HCV RX PCR, UPE RAND, HBSAB, QUANT TB, CHROMATIN, HBSAG #### [facility] , Complete Blood Count Auto Di ffon 03-09-2024 Mean Corpuscular HGB Conc 33.0 g/dL Normal 32.0-35.0 [facility] Comment on above: Performed By: #### C RP, CK, CBC, CMP, T4F, ESR, TSH3, ADDONUAPLUS #### [address] #### SPE, KARUNA,URINE, BIGG, HBCAB, ALDOLASE, RPR W RFX, HCV RX PCR, UPE RAND, HBSAB, QUANT TB, CHROMATIN, HBSAG #### [facility] , NRBC% 0.1 /100{WBC} Normal 0-0.5 [facility] Comment on above: Performed By: #### C RP, CK, CBC, CMP, T4F, ESR, TSH3, ADDONUAPLUS #### [place] [address] [place] #### SPE, KARUNA,URINE, BIGG, HBCAB, ALDOLASE, RPR W RFX, HCV RX PCR, UPE RAND, HBSAB, QUANT TB, CHROMATIN, HBSAG #### [facility] , Comprehensive Metabolic Pane erika 03-09-2024 Albumin [Mass/Vol] 4.2 g/dL Normal 3.5-5.7 [facility] Comment on above: Performed By: #### C RP, CK, CBC, CMP, T4F, ESR, TSH3, ADDONUAPLUS #### [place] [address] [place] #### SPE, KARUNA,URINE, BIGG, HBCAB, ALDOLASE, RPR W RFX, HCV RX PCR, UPE RAND, HBSAB, QUANT TB, CHROMATIN, HBSAG #### [facility] , GFR/1.73 sq M.predicted MDRD (S/P/Bld) [Vol rate/Area] mL/min/{1.73_m2} Normal [facility] Comment on above: Performed By: #### C RP, CK, CBC, CMP, T4F, ESR, TSH3, ADDONUAPLUS #### [address] #### SPE, KARUNA,URINE, BIGG, HBCAB, ALDOLASE, RPR W RFX, HCV RX PCR, UPE RAND, HBSAB, QUANT TB, CHROMATIN, HBSAG #### [facility] , Creatine kinase [Enzymatic a ctivity/volume] in Serum or PlasmaOrdered By: Gordy Matthew on 03-09-2024 CK [Catalytic activity/Vol] 25 U/L Low 30-223 [facility] Comment on above: Result Comment: PERF ORMED BY: [place] [address] PATHOLOGIST STEREO OPERATOR JOCELYN EDGE M.D. Performed By: #### C RP, CK, CBC, CMP, T4F, ESR, TSH3, ADDONUAPLUS #### [address] #### SPE, KARUNA,URINE, BIGG, HBCAB, ALDOLASE, RPR W RFX, HCV RX PCR, UPE RAND, HBSAB, QUANT TB, CHROMATIN, HBSAG #### [facility] , Creatinine [Mass/volume] in Serum or PlasmaOrdered By: Gordy Matthew on 03-09-2024 Creatinine [Mass/Vol] 0.80 mg/dL Normal 0.60-1.20 [facility] Comment on above: Performed By: #### C RP, CK, CBC, CMP, T4F, ESR, TSH3, ADDONUAPLUS #### [address] #### SPE, KARUNA,URINE, BIGG, HBCAB, ALDOLASE, RPR W RFX, HCV RX PCR, UPE RAND, HBSAB, QUANT TB, CHROMATIN, HBSAG #### [facility] , Dipstick and Microscopicon 0 03-09-2024 Bacteria,Urine Rare Normal None Seen [facility] Comment on above: Order Comment: Name Collection Type:: Clean-Voided Midstream Performed By: #### C RP, CK, CBC, CMP, T4F, ESR, TSH3, ADDONUAPLUS #### [address] #### SPE, KARUNA,URINE, BIGG, HBCAB, ALDOLASE, RPR W RFX, HCV RX PCR, UPE RAND, HBSAB, QUANT TB, CHROMATIN, HBSAG #### [facility] , Bilirubin,Urine Negative Normal Negative [facility] Comment on above: Order Comment: Name Collection Type:: Clean-Voided Midstream Performed By: #### C RP, CK, CBC, CMP, T4F, ESR, TSH3, ADDONUAPLUS #### [address] #### SPE, KARUNA,URINE, BIGG, HBCAB, ALDOLASE, RPR W RFX, HCV RX PCR, UPE RAND, HBSAB, QUANT TB, CHROMATIN, HBSAG #### [facility] , Glucose Ql (U) Normal Normal Normal [facility] Comment on above: Order Comment: Name Collection Type:: Clean-Voided Midstream Performed By: #### C RP, CK, CBC, CMP, T4F, ESR, TSH3, ADDONUAPLUS #### [address] #### SPE, KARUNA,URINE, BIGG, HBCAB, ALDOLASE, RPR W RFX, HCV RX PCR, UPE RAND, HBSAB, QUANT TB, CHROMATIN, HBSAG #### [facility] , Hyaline Casts,Urine None Normal 0-8 [facility] Comment on above: Order Comment: Name Collection Type:: Clean-Voided Midstream Performed By: #### C RP, CK, CBC, CMP, T4F, ESR, TSH3, ADDONUAPLUS #### [address] #### SPE, KARUNA,URINE, BIGG, HBCAB, ALDOLASE, RPR W RFX, HCV RX PCR, UPE RAND, HBSAB, QUANT TB, CHROMATIN, HBSAG #### [facility] , Mucus,Urine Rare Normal [facility] Comment on above: Order Comment: Name Collection Type:: Clean-Voided Midstream Result Comment: PERF ORMED BY: [place] [address] PATHOLOGIST STEREO OPERATOR JOCELYN EDGE M.D. Performed By: #### C RP, CK, CBC, CMP, T4F, ESR, TSH3, ADDONUAPLUS #### [address] #### SPE, KARUNA,URINE, BIGG, HBCAB, ALDOLASE, RPR W RFX, HCV RX PCR, UPE RAND, HBSAB, QUANT TB, CHROMATIN, HBSAG #### [facility] , Nitrite,Urine Negative Normal Negative [facility] Comment on above: Order Comment: Name Collection Type:: Clean-Voided Midstream Performed By: #### C RP, CK, CBC, CMP, T4F, ESR, TSH3, ADDONUAPLUS #### [address] #### SPE, KARUNA,URINE, BIGG, HBCAB, ALDOLASE, RPR W RFX, HCV RX PCR, UPE RAND, HBSAB, QUANT TB, CHROMATIN, HBSAG #### [facility] , Occult Blood,Urine Negative Normal Negative [facility] Comment on above: Order Comment: Name Collection Type:: Clean-Voided Midstream Performed By: #### C RP, CK, CBC, CMP, T4F, ESR, TSH3, ADDONUAPLUS #### [address] #### SPE, KARUNA,URINE, BIGG, HBCAB, ALDOLASE, RPR W RFX, HCV RX PCR, UPE RAND, HBSAB, QUANT TB, CHROMATIN, HBSAG #### [facility] , Protein,Urine Negative Normal Negative [facility] Comment on above: Order Comment: Name Collection Type:: Clean-Voided Midstream Performed By: #### C RP, CK, CBC, CMP, T4F, ESR, TSH3, ADDONUAPLUS #### [address] #### SPE, KARUNA,URINE, BIGG, HBCAB, ALDOLASE, RPR W RFX, HCV RX PCR, UPE RAND, HBSAB, QUANT TB, CHROMATIN, HBSAG #### [facility] , RBC,Urine 1-2 Normal 0-4 [facility] Comment on above: Order Comment: Name Collection Type:: Clean-Voided Midstream Performed By: #### C RP, CK, CBC, CMP, T4F, ESR, TSH3, ADDONUAPLUS #### [address] #### SPE, KARUNA,URINE, BIGG, HBCAB, ALDOLASE, RPR W RFX, HCV RX PCR, UPE RAND, HBSAB, QUANT TB, CHROMATIN, HBSAG #### [facility] , Specificy [place],Urine 1.013 Normal 1.001-1.030 [facility] Comment on above: Order Comment: Name Collection Type:: Clean-Voided Midstream Performed By: #### C RP, CK, CBC, CMP, T4F, ESR, TSH3, ADDONUAPLUS #### [place] [address] [place] #### SPE, KARUNA,URINE, BIGG, HBCAB, ALDOLASE, RPR W RFX, HCV RX PCR, UPE RAND, HBSAB, QUANT TB, CHROMATIN, HBSAG #### [facility] , Urobilinogen,Urine Normal Normal Normal [facility] Comment on above: Order Comment: Name Collection Type:: Clean-Voided Midstream Performed By: #### C RP, CK, CBC, CMP, T4F, ESR, TSH3, ADDONUAPLUS #### [address] #### SPE, KARUNA,URINE, BIGG, HBCAB, ALDOLASE, RPR W RFX, HCV RX PCR, UPE RAND, HBSAB, QUANT TB, CHROMATIN, HBSAG #### [facility] , WBC,Urine 3-4 Normal 0-4 [facility] Comment on above: Order Comment: Name Collection Type:: Clean-Voided Midstream Performed By: #### C RP, CK, CBC, CMP, T4F, ESR, TSH3, ADDONUAPLUS #### [address] #### SPE, KARUNA,URINE, BIGG, HBCAB, ALDOLASE, RPR W RFX, HCV RX PCR, UPE RAND, HBSAB, QUANT TB, CHROMATIN, HBSAG #### [facility] , Epithelial cells.squamous [# /area] in Urine sediment by Automated countOrdered By: Gordy Matthew on 03-09-2024 Epithelial cells.squamous Auto (Urine sed) [#/Area] N/A [facility] Erythrocyte Sedimentation Ra conchita 03-09-2024 ESR (Bld) [Velocity] 25 mm/h Normal 0-29 [facility] Comment on above: Result Comment: PERF ORMED BY: [place] [address] PATHOLOGIST STEREO OPERATOR JOCELYN EDGE M.D. Performed By: #### C RP, CK, CBC, CMP, T4F, ESR, TSH3, ADDONUAPLUS #### [address] #### SPE, KARUNA,URINE, BIGG, HBCAB, ALDOLASE, RPR W RFX, HCV RX PCR, UPE RAND, HBSAB, QUANT TB, CHROMATIN, HBSAG #### [facility] , Erythrocyte distribution wid th [Ratio] by Automated countOrdered By: Gordy Farooqrow on 03-09-2024 Erythrocyte distribution width (RBC) [Ratio] 14.1 % Normal 11.9-15.3 [facility] Comment on above: Performed By: #### C RP, CK, CBC, CMP, T4F, ESR, TSH3, ADDONUAPLUS #### [facility] [address] [place] [address] #### SPE, KARUNA,URINE, BIGG, HBCAB, ALDOLASE, RPR W RFX, HCV RX PCR, UPE RAND, HBSAB, QUANT TB, CHROMATIN, HBSAG #### [facility] , Erythrocyte sedimentation ra te by Photometric methodOrdered By: Gordylarry Matthew on 03-09-2024 ESR Photometric method (Bld) [Velocity] 25 mm/hr 0-29 [facility] Erythrocytes [#/area] in Uri ne sediment by Automated countOrdered By: Gordy Matthew on 03-09-2024 RBC Auto (Urine sed) [#/Area] 1-2 [HPF] 0-4 [facility] Erythrocytes [#/volume] in B lood by Automated countOrdered By: Gordy Matthew on 03-09-2024 RBC (Bld) [#/Vol] 4.71 10*6/uL Normal 3.60-5.00 [facility] Comment on above: Performed By: #### C RP, CK, CBC, CMP, T4F, ESR, TSH3, ADDONUAPLUS #### [facility] [address] [place] [address] [place] #### SPE, KARUNA,URINE, BIGG, HBCAB, ALDOLASE, RPR W RFX, HCV RX PCR, UPE RAND, HBSAB, QUANT TB, CHROMATIN, HBSAG #### [facility] , Glucose [Mass/volume] in Ser um or PlasmaOrdered By: Gordy Matthew on 03-09-2024 Glucose [Mass/Vol] 100 mg/dL Normal 70-100 [facility] Comment on above: ADA recommended refe rence rangeRandom Glucose Reference Range is dependent on time and content of last meal. Glucose of more than 200 mg/dL in a nonstressed, ambulatory subject supports the diagnosis of Diabetes Mellitus. Result Comment: [place] Glucose Reference Range is dependent on time and content of last meal. Glucose of more than 200 mg/dL in a nonstressed, ambulatory subject supports the diagnosis of Diabetes Mellitus. ADA recommended reference range Performed By: #### C RP, CK, CBC, CMP, T4F, ESR, TSH3, ADDONUAPLUS #### [address] #### SPE, KARUNA,URINE, BIGG, HBCAB, ALDOLASE, RPR W RFX, HCV RX PCR, UPE RAND, HBSAB, QUANT TB, CHROMATIN, HBSAG #### [facility] , Glucose [Mass/volume] in Uri ne by Test stripOrdered By: Gordy Matthew on 03-09-2024 Glucose Test strip (U) [Mass/Vol] Normal mg/dL Normal [facility] Hematocrit [Volume Fraction] of Blood by Automated countOrdered By: Gordy Matthew on 03-09-2024 Hematocrit (Bld) [Volume fraction] 41.1 % Normal 34.0-46.4 [facility] Comment on above: Performed By: #### C RP, CK, CBC, CMP, T4F, ESR, TSH3, ADDONUAPLUS #### [place] [address] [place] #### SPE, KARUNA,URINE, BIGG, HBCAB, ALDOLASE, RPR W RFX, HCV RX PCR, UPE RAND, HBSAB, QUANT TB, CHROMATIN, HBSAG #### [facility] , Hemoglobin Test strip Ql (U) Ordered By: Gordy Matthew on 03-09-2024 Hemoglobin Ql (U) Negative Negative [facility] Hemoglobin [Mass/volume] in BloodOrdered By: Gordy Matthew on 03-09-2024 Hemoglobin (Bld) [Mass/Vol] 13.6 g/dL Normal 11.8-15.4 [facility] Comment on above: Performed By: #### C RP, CK, CBC, CMP, T4F, ESR, TSH3, ADDONUAPLUS #### [address] #### SPE, KARUNA,URINE, BIGG, HBCAB, ALDOLASE, RPR W RFX, HCV RX PCR, UPE RAND, HBSAB, QUANT TB, CHROMATIN, HBSAG #### [facility] , Hep C Ab wRfx to Qnt PCRon 0 03-09-2024 Hepatitis C Virus Antibody Non-Reactive Normal Non Reactive [facility] Comment on above: Performed By: #### C RP, CK, CBC, CMP, T4F, ESR, TSH3, ADDONUAPLUS #### [address] #### SPE, KARUNA,URINE, BIGG, HBCAB, ALDOLASE, RPR W RFX, HCV RX PCR, UPE RAND, HBSAB, QUANT TB, CHROMATIN, HBSAG #### [facility] , Interpretation Hepatitis C Comment Normal . [facility] Comment on above: Result Comment: Not infected with HCV unless early or acute infection is suspected (which may be delayed in an immunocompromised individual), or other evidence exists to indicate HCV infection. Performed By: #### C RP, CK, CBC, CMP, T4F, ESR, TSH3, ADDONUAPLUS #### [address] #### SPE, KARUNA,URINE, BIGG, HBCAB, ALDOLASE, RPR W RFX, HCV RX PCR, UPE RAND, HBSAB, QUANT TB, CHROMATIN, HBSAG #### [facility] , Hepatitis B Core Antibodyon 03-09-2024 Hepatitis B Core Antibody Negative Normal Negative [facility] Comment on above: Result Comment: Perf ormed at: - [facility] [address] [id number] Rubber Roller Grinder: Jasiel Key PhD, Phone: [phone] Performed By: #### C RP, CK, CBC, CMP, T4F, ESR, TSH3, ADDONUAPLUS #### [address] #### SPE, KARUNA,URINE, BIGG, HBCAB, ALDOLASE, RPR W RFX, HCV RX PCR, UPE RAND, HBSAB, QUANT TB, CHROMATIN, HBSAG #### [facility] , Hepatitis B Surface Antibody on 03-09-2024 Hepatitis B Surface Antibody Non-Reactive Normal . [facility] Comment on above: Result Comment: Non Reactive: Not immune to HBV infection. Equivocal: Unable to determine if anti-HBs is present at levels consistent with immunity. Reactive: Anti-HBs concentration detected at greater than 10 mIU/mL. Individual is considered to be immune to infection with HBV. Performed By: #### C RP, CK, CBC, CMP, T4F, ESR, TSH3, ADDONUAPLUS #### [address] #### SPE, KARUNA,URINE, BIGG, HBCAB, ALDOLASE, RPR W RFX, HCV RX PCR, UPE RAND, HBSAB, QUANT TB, CHROMATIN, HBSAG #### [facility] , Hepatitis B Surface Antigeno n 03-09-2024 HBsAg Screen Negative Normal Negative [facility] Comment on above: Result Comment: PERF ORMED BY: [place] [address] PATHOLOGIST STEREO OPERATOR JOCELYN EDGE M.D. Performed By: #### C RP, CK, CBC, CMP, T4F, ESR, TSH3, ADDONUAPLUS #### [address] #### SPE, KARUNA,URINE, BIGG, HBCAB, ALDOLASE, RPR W RFX, HCV RX PCR, UPE RAND, HBSAB, QUANT TB, CHROMATIN, HBSAG #### [facility] , Hyaline casts [#/area] in Ur ine sediment by Automated countOrdered By: Gordy Matthew on 03-09-2024 Hyaline casts Auto (Urine sed) [#/Area] None [LPF] 0-8 [facility] Immunofixation, (KARUNA), Urine on 03-09-2024 Immunofixation, (KARUNA), Urine Comment Normal . [facility] Comment on above: Result Comment: No m onoclonality detected. Performed at: [facility] [address] [id number] Rubber Roller Grinder: Jasiel Key PhD, Phone: [phone] Performed By: #### C RP, CK, CBC, CMP, T4F, ESR, TSH3, ADDONUAPLUS #### [address] #### SPE, KARUNA,URINE, BIGG, HBCAB, ALDOLASE, RPR W RFX, HCV RX PCR, UPE RAND, HBSAB, QUANT TB, CHROMATIN, HBSAG #### [facility] , Ketones [Presence] in Urine by Test stripOrdered By: Gordy Matthew on 03-09-2024 Ketones Ql (U) Negative Normal Negative [facility] Comment on above: Order Comment: Name Collection Type:: Clean-Voided Midstream Performed By: #### C RP, CK, CBC, CMP, T4F, ESR, TSH3, ADDONUAPLUS #### [place] [address] [place] #### SPE, KARUNA,URINE, BIGG, HBCAB, ALDOLASE, RPR W RFX, HCV RX PCR, UPE RAND, HBSAB, QUANT TB, CHROMATIN, HBSAG #### [facility] , Leukocyte esterase [Presence ] in Urine by Test stripOrdered By: Gordy Matthew on 03-09-2024 Leukocyte esterase Test strip Ql (U) Negative Normal Negative [facility] Comment on above: Order Comment: Name Collection Type:: Clean-Voided Midstream Performed By: #### C RP, CK, CBC, CMP, T4F, ESR, TSH3, ADDONUAPLUS #### [place] [address] [place] #### SPE, KARUNA,URINE, BIGG, HBCAB, ALDOLASE, RPR W RFX, HCV RX PCR, UPE RAND, HBSAB, QUANT TB, CHROMATIN, HBSAG #### [facility] , Leukocytes [#/area] in Urine sediment by Automated countOrdered By: Gordy Matthew on 03-09-2024 WBC Auto (Urine sed) [#/Area] 3-4 [HPF] 0-4 [facility] Leukocytes [#/volume] correc [place] for nucleated erythrocytes in Blood by Automated counOrdered By: Gordy Matthew on 03-09-2024 WBC corrected for nucl RBC Auto (Bld) [#/Vol] 11.4 10*3/uL 3.8-11.6 [facility] Leukocytes [#/volume] in Blo od by Automated countOrdered By: Gordy Matthew on 03-09-2024 WBC (Bld) [#/Vol] 11.4 10*3/uL Normal 3.8-11.6 [facility] Comment on above: Performed By: #### C RP, CK, CBC, CMP, T4F, ESR, TSH3, ADDONUAPLUS #### [facility] [address] [place] [address] [place] #### SPE, KARUNA,URINE, BIGG, HBCAB, ALDOLASE, RPR W RFX, HCV RX PCR, UPE RAND, HBSAB, QUANT TB, CHROMATIN, HBSAG #### [facility] , Lymphocytes [#/volume] in Bl ood by Automated countOrdered By: Gordy Farooqrow on 03-09-2024 Lymphocytes (Bld) [#/Vol] 2.8 10*3/uL Normal 1.00-4.8 [facility] Comment on above: Performed By: #### C RP, CK, CBC, CMP, T4F, ESR, TSH3, ADDONUAPLUS #### [facility] [address] [place] [address] [place] #### SPE, KARUNA,URINE, BIGG, HBCAB, ALDOLASE, RPR W RFX, HCV RX PCR, UPE RAND, HBSAB, QUANT TB, CHROMATIN, HBSAG #### [facility] , Lymphocytes/100 leukocytes i n Blood by Automated countOrdered By: Gordy Vipul on 03-09-2024 Lymphocytes/100 WBC (Bld) 24.4 % Normal . [facility] Comment on above: Performed By: #### C RP, CK, CBC, CMP, T4F, ESR, TSH3, ADDONUAPLUS #### [facility] [address] [place] [address] #### SPE, KARUNA,URINE, BIGG, HBCAB, ALDOLASE, RPR W RFX, HCV RX PCR, UPE RAND, HBSAB, QUANT TB, CHROMATIN, HBSAG #### [facility] , MCH [Entitic mass] by Automa dakotah countOrdered By: oGrdy Matthew on 03-09-2024 MCH (RBC) [Entitic mass] 28.8 pg Normal 24.7-34.3 [facility] Comment on above: Performed By: #### C RP, CK, CBC, CMP, T4F, ESR, TSH3, ADDONUAPLUS #### [facility] [address] [place] [address] [place] #### SPE, KARUNA,URINE, BIGG, HBCAB, ALDOLASE, RPR W RFX, HCV RX PCR, UPE RAND, HBSAB, QUANT TB, CHROMATIN, HBSAG #### [facility] , MCHC Auto (RBC) [Mass/Vol]Or dered By: Gordy Matthew on 03-09-2024 MCHC (RBC) [Mass/Vol] 33.0 g/dL 32.0-35.0 [facility] MCV [Entitic volume] by Auto mated countOrdered By: Gordy Farooqrow on 03-09-2024 MCV (RBC) [Entitic vol] 87.3 fL Normal 80-100 F [facility] Comment on above: Performed By: #### C RP, CK, CBC, CMP, T4F, ESR, TSH3, ADDONUAPLUS #### [facility] [address] [place] [address] [place] #### SPE, KARUNA,URINE, BIGG, HBCAB, ALDOLASE, RPR W RFX, HCV RX PCR, UPE RAND, HBSAB, QUANT TB, CHROMATIN, HBSAG #### [facility] , Mucus [Presence] in Urine by AutomatedOrdered By: Gordy Vipul on 03-09-2024 Mucus Auto Ql (U) Rare [LPF] [facility] Neutrophils [#/volume] in Bl ood by Automated countOrdered By: Gordy Vipul on 03-09-2024 Neutrophils (Bld) [#/Vol] 7.5 10*3/uL Normal 1.8-7.7 [facility] Comment on above: Performed By: #### C RP, CK, CBC, CMP, T4F, ESR, TSH3, ADDONUAPLUS #### [facility] [address] [place] [address] #### SPE, KARUNA,URINE, BIGG, HBCAB, ALDOLASE, RPR W RFX, HCV RX PCR, UPE RAND, HBSAB, QUANT TB, CHROMATIN, HBSAG #### [facility] , Nitrite Test strip Ql (U)Ord ered By: Gordylarry Matthew on 03-09-2024 Nitrite Ql (U) Negative Negative [facility] No Panel InformationOrdered By: Gordy Matthew on 03-09-2024 Estimated GFR (CKD-EPI) > 60.0 mL/Min [facility] Creatinine Clearance (Chem N/A [facility] Nucleated erythrocytes [Pres ence] in Blood by Automated countOrdered By: Gordy Matthew on 03-09-2024 Nucleated RBC Auto Ql (Bld) 0.1 /100{WBC} 0-0.5 [facility] Platelet mean volume [Entiti c volume] in Blood by Automated countOrdered By: Gordy Matthew on 03-09-2024 Platelet mean volume (Bld) [Entitic vol] 8.3 fL Normal 6.3-10.7 [facility] Comment on above: Performed By: #### C RP, CK, CBC, CMP, T4F, ESR, TSH3, ADDONUAPLUS #### [facility] [address] [place] [address] [place] #### SPE, KARUNA,URINE, BIGG, HBCAB, ALDOLASE, RPR W RFX, HCV RX PCR, UPE RAND, HBSAB, QUANT TB, CHROMATIN, HBSAG #### [facility] , Platelets [#/volume] in Bloo d by Automated countOrdered By: Gordy Matthew on 03-09-2024 Platelets (Bld) [#/Vol] 332 10*3/uL Normal 150-450 [facility] Comment on above: Performed By: #### C RP, CK, CBC, CMP, T4F, ESR, TSH3, ADDONUAPLUS #### [facility] [address] [place] [address] #### SPE, KARUNA,URINE, BIGG, HBCAB, ALDOLASE, RPR W RFX, HCV RX PCR, UPE RAND, HBSAB, QUANT TB, CHROMATIN, HBSAG #### [facility] , Potassium [Moles/volume] in Serum or PlasmaOrdered By: Gordy Matthew on 03-09-2024 Potassium [Moles/Vol] 4.2 mmol/L Normal 3.5-5.1 [facility] Comment on above: Performed By: #### C RP, CK, CBC, CMP, T4F, ESR, TSH3, ADDONUAPLUS #### [facility] [address] [place] [address] #### SPE, KARUNA,URINE, BIGG, HBCAB, ALDOLASE, RPR W RFX, HCV RX PCR, UPE RAND, HBSAB, QUANT TB, CHROMATIN, HBSAG #### [facility] , Protein Electro, Random Urin krysten 03-09-2024 Albumin, Urine 15.5 % Normal . [facility] Comment on above: Performed By: #### C RP, CK, CBC, CMP, T4F, ESR, TSH3, ADDONUAPLUS #### [facility] [address] [place] [address] [place] #### SPE, KARUNA,URINE, BIGG, HBCAB, ALDOLASE, RPR W RFX, HCV RX PCR, UPE RAND, HBSAB, QUANT TB, CHROMATIN, HBSAG #### [facility] , Hascj-3-Qnwzmkla, Urine 5.6 % Normal . Divya carey [facility] Comment on above: Performed By: #### C RP, CK, CBC, CMP, T4F, ESR, TSH3, ADDONUAPLUS #### [address] #### SPE, KARUNA,URINE, BIGG, HBCAB, ALDOLASE, RPR W RFX, HCV RX PCR, UPE RAND, HBSAB, QUANT TB, CHROMATIN, HBSAG #### [facility] , Fcfbk-4-Ehviebkq, Urine 21.4 % Normal . T aurelio [facility] Comment on above: Performed By: #### C RP, CK, CBC, CMP, T4F, ESR, TSH3, ADDONUAPLUS #### [address] #### SPE, KARUNA,URINE, BIGG, HBCAB, ALDOLASE, RPR W RFX, HCV RX PCR, UPE RAND, HBSAB, QUANT TB, CHROMATIN, HBSAG #### [facility] , Beta Globulin, Urine 31.2 % Normal . [facility] Comment on above: Performed By: #### C RP, CK, CBC, CMP, T4F, ESR, TSH3, ADDONUAPLUS #### [place] [address] [place] #### SPE, KARUNA,URINE, BIGG, HBCAB, ALDOLASE, RPR W RFX, HCV RX PCR, UPE RAND, HBSAB, QUANT TB, CHROMATIN, HBSAG #### [facility] , Gamma Globulin, Urine 26.4 % Normal . [facility] Comment on above: Performed By: #### C RP, CK, CBC, CMP, T4F, ESR, TSH3, ADDONUAPLUS #### [place] [address] [place] #### SPE, KARUNA,URINE, BIGG, HBCAB, ALDOLASE, RPR W RFX, HCV RX PCR, UPE RAND, HBSAB, QUANT TB, CHROMATIN, HBSAG #### [facility] , M-Leonid % Not Observed Normal Not Observed [facility] Comment on above: Performed By: #### C RP, CK, CBC, CMP, T4F, ESR, TSH3, ADDONUAPLUS #### [address] #### SPE, KARUNA,URINE, BIGG, HBCAB, ALDOLASE, RPR W RFX, HCV RX PCR, UPE RAND, HBSAB, QUANT TB, CHROMATIN, HBSAG #### [facility] , Please Note: Comment Normal . [facility] Comment on above: Result Comment: Prot ein electrophoresis scan will follow via computer, mail, or police patrol lieutenant delivery. PERFORMED BY: [place] [address] PATHOLOGIST STEREO OPERATOR JOCELYN EDGE M.D. Performed By: #### C RP, CK, CBC, CMP, T4F, ESR, TSH3, ADDONUAPLUS #### [address] #### SPE, KARUNA,URINE, BIGG, HBCAB, ALDOLASE, RPR W RFX, HCV RX PCR, UPE RAND, HBSAB, QUANT TB, CHROMATIN, HBSAG #### [facility] , Protein (U) [Mass/Vol] 4.1 mg/dL Normal Not Estab. [facility] Comment on above: Performed By: #### C RP, CK, CBC, CMP, T4F, ESR, TSH3, ADDONUAPLUS #### [place] [address] [place] #### SPE, KARUNA,URINE, BIGG, HBCAB, ALDOLASE, RPR W RFX, HCV RX PCR, UPE RAND, HBSAB, QUANT TB, CHROMATIN, HBSAG #### [facility] , Protein Electrophoresis, Ser umon 03-09-2024 Albumin [Mass/Vol] 3.8 g/dL Normal 2.9-4.4 [facility] Comment on above: Performed By: #### C RP, CK, CBC, CMP, T4F, ESR, TSH3, ADDONUAPLUS #### [facility] [address] #### SPE, KARUNA,URINE, BIGG, HBCAB, ALDOLASE, RPR W RFX, HCV RX PCR, UPE RAND, HBSAB, QUANT TB, CHROMATIN, HBSAG #### [facility] , Albumin/Globulin [Mass ratio] 1.2 {ratio} Normal 0.7-1.7 [facility] Comment on above: Performed By: #### C RP, CK, CBC, CMP, T4F, ESR, TSH3, ADDONUAPLUS #### [address] #### SPE, KARUNA,URINE, BIGG, HBCAB, ALDOLASE, RPR W RFX, HCV RX PCR, UPE RAND, HBSAB, QUANT TB, CHROMATIN, HBSAG #### [facility] , Qrhxl-3-Efyudodr 0.2 g/dL Normal 0.0-0.4 [facility] Comment on above: Performed By: #### C RP, CK, CBC, CMP, T4F, ESR, TSH3, ADDONUAPLUS #### [address] #### SPE, KARUNA,URINE, BIGG, HBCAB, ALDOLASE, RPR W RFX, HCV RX PCR, UPE RAND, HBSAB, QUANT TB, CHROMATIN, HBSAG #### [facility] , Ovqqv-6-Wqbifhdv 0.7 g/dL Normal 0.4-1.0 [facility] Comment on above: Performed By: #### C RP, CK, CBC, CMP, T4F, ESR, TSH3, ADDONUAPLUS #### [place] [address] [place] #### SPE, KARUNA,URINE, BIGG, HBCAB, ALDOLASE, RPR W RFX, HCV RX PCR, UPE RAND, HBSAB, QUANT TB, CHROMATIN, HBSAG #### [facility] , Beta Globulin 1.1 g/dL Normal 0.7-1.3 [facility] Comment on above: Performed By: #### C RP, CK, CBC, CMP, T4F, ESR, TSH3, ADDONUAPLUS #### [address] #### SPE, KARUNA,URINE, BIGG, HBCAB, ALDOLASE, RPR W RFX, HCV RX PCR, UPE RAND, HBSAB, QUANT TB, CHROMATIN, HBSAG #### [facility] , Gamma Globulin 1.3 g/dL Normal 0.4-1.8 [facility] Comment on above: Performed By: #### C RP, CK, CBC, CMP, T4F, ESR, TSH3, ADDONUAPLUS #### [address] #### SPE, KARUNA,URINE, BIGG, HBCAB, ALDOLASE, RPR W RFX, HCV RX PCR, UPE RAND, HBSAB, QUANT TB, CHROMATIN, HBSAG #### [facility] , Globulin (S) [Mass/Vol] 3.3 g/dL Normal 2.2-3.9 [facility] Comment on above: Performed By: #### C RP, CK, CBC, CMP, T4F, ESR, TSH3, ADDONUAPLUS #### [address] #### SPE, KARUNA,URINE, BIGG, HBCAB, ALDOLASE, RPR W RFX, HCV RX PCR, UPE RAND, HBSAB, QUANT TB, CHROMATIN, HBSAG #### [facility] , M-Leonid Not Observed Normal Not Observed [facility] Comment on above: Performed By: #### C RP, CK, CBC, CMP, T4F, ESR, TSH3, ADDONUAPLUS #### [place] [address] [place] #### SPE, KARUNA,URINE, BIGG, HBCAB, ALDOLASE, RPR W RFX, HCV RX PCR, UPE RAND, HBSAB, QUANT TB, CHROMATIN, HBSAG #### [facility] , SPE-Note Comment Normal . [facility] Comment on above: Result Comment: Prot ein electrophoresis scan will follow via computer, mail, or police patrol lieutenant delivery. Performed at: [address] [id number] Rubber Roller Grinder: Jasiel Key PhD, Phone: [phone] Performed By: #### C RP, CK, CBC, CMP, T4F, ESR, TSH3, ADDONUAPLUS #### [address] #### SPE, KARUNA,URINE, BIGG, HBCAB, ALDOLASE, RPR W RFX, HCV RX PCR, UPE RAND, HBSAB, QUANT TB, CHROMATIN, HBSAG #### [facility] , Protein Test strip (U) [Mass /Vol]Ordered By: Gordy Matthew on 03-09-2024 Protein (U) [Mass/Vol] Negative Negative [facility] Protein [Mass/volume] in Ser um or PlasmaOrdered By: Gordy Matthew on 03-09-2024 Protein [Mass/Vol] 7.1 g/dL Normal 6.0-8.5 [facility] Comment on above: Performed By: #### C RP, CK, CBC, CMP, T4F, ESR, TSH3, ADDONUAPLUS #### [address] #### SPE, KARUNA,URINE, BIGG, HBCAB, ALDOLASE, RPR W RFX, HCV RX PCR, UPE RAND, HBSAB, QUANT TB, CHROMATIN, HBSAG #### [facility] , QuantiFERON TB Goldon 2023 QFTB Criteria Comment Normal . [facility] Comment on above: Result [...] CBC, CMP, T4F, ESR, TSH3, ADDONUAPLUS #### [place] [address] [place] #### SPE, KARUNA,URINE, BIGG, HBCAB, ALDOLASE, RPR W RFX, HCV RX PCR, UPE RAND, HBSAB, QUANT TB, CHROMATIN, HBSAG #### [facility] , Quant TB Ag Value 0.00 Normal . [facility] Comment on above: Performed By: #### C RP, CK, CBC, CMP, T4F, ESR, TSH3, ADDONUAPLUS #### [place] [address] [place] #### SPE, KARUNA,URINE, BIGG, HBCAB, ALDOLASE, RPR W RFX, HCV RX PCR, UPE RAND, HBSAB, QUANT TB, CHROMATIN, HBSAG #### [facility] , Quant TB Gold Plus Negative Normal Negative [facility] Comment on above: [...] interferon gamma. Chemiluminescence immunoassay methodology Performed at: [facility] [id number] Rubber Roller Grinder: Jasiel Key PhD, Phone: [phone] PERFORMED BY: [place] [address] PATHOLOGIST STEREO OPERATOR JOCELYN EDGE M.D. Performed By: #### C RP, CK, CBC, CMP, T4F, ESR, TSH3, ADDONUAPLUS #### [place] [address] [place] #### SPE, KARUNA,URINE, BIGG, HBCAB, ALDOLASE, RPR W RFX, HCV RX PCR, UPE RAND, HBSAB, QUANT TB, CHROMATIN, HBSAG #### [facility] , Quant TB2 Ag Value 0.00 Normal . [facility] Comment on above: Performed By: #### C RP, CK, CBC, CMP, T4F, ESR, TSH3, ADDONUAPLUS #### [facility] [address] #### SPE, KARUNA,URINE, BIGG, HBCAB, ALDOLASE, RPR W RFX, HCV RX PCR, UPE RAND, HBSAB, QUANT TB, CHROMATIN, HBSAG #### [facility] , Quantiferon Nil Value 0.00 Normal . [facility] Comment on above: Performed By: #### C RP, CK, CBC, CMP, T4F, ESR, TSH3, ADDONUAPLUS #### [facility] [address] #### SPE, KARUNA,URINE, BIGG, HBCAB, ALDOLASE, RPR W RFX, HCV RX PCR, UPE RAND, HBSAB, QUANT TB, CHROMATIN, HBSAG #### [facility] , Quantiferon TB Mitogen >10.00 Normal . [facility] Comment on above: Performed By: #### C RP, CK, CBC, CMP, T4F, ESR, TSH3, ADDONUAPLUS #### [facility] [address] #### SPE, KARUNA,URINE, BIGG, HBCAB, ALDOLASE, RPR W RFX, HCV RX PCR, UPE RAND, HBSAB, QUANT TB, CHROMATIN, HBSAG #### [facility] , RPR w/rfx to Quant TP Abson 03-09-2024 RPR, Rfx Quant RPR Non-Reactive Normal Non Reactive [facility] Comment on above: Result Comment: Perf ormed at: - [facility] [address] [id number] Rubber Roller Grinder: Jasiel Key PhD, Phone: [phone] PERFORMED BY: [place] [address] PATHOLOGIST STEREO OPERATOR JOCELYN EDGE M.D. Performed By: #### C RP, CK, CBC, CMP, T4F, ESR, TSH3, ADDONUAPLUS #### [address] #### SPE, KARUNA,URINE, BIGG, HBCAB, ALDOLASE, RPR W RFX, HCV RX PCR, UPE RAND, HBSAB, QUANT TB, CHROMATIN, HBSAG #### [facility] , Serum globulin measurement b y calculation (mass/volume)Ordered By: Gordy Matthew on 03-09-2024 Globulin (S) [Mass/Vol] 2.9 g/dL Normal [facility] Comment on above: Performed By: #### C RP, CK, CBC, CMP, T4F, ESR, TSH3, ADDONUAPLUS #### [facility] [address] [place] [address] [place] #### SPE, KARUNA,URINE, BIGG, HBCAB, ALDOLASE, RPR W RFX, HCV RX PCR, UPE RAND, HBSAB, QUANT TB, CHROMATIN, HBSAG #### [facility] , Serum or plasma albumin/glob ulin mass ratioOrdered By: Gordy Matthew on 03-09-2024 Albumin/Globulin [Mass ratio] 1.4 {ratio} [facility] Comment on above: Performed By: #### C RP, CK, CBC, CMP, T4F, ESR, TSH3, ADDONUAPLUS #### [place] [address] [place] #### SPE, KARUNA,URINE, BIGG, HBCAB, ALDOLASE, RPR W RFX, HCV RX PCR, UPE RAND, HBSAB, QUANT TB, CHROMATIN, HBSAG #### [facility] , Serum or plasma anion gap de terminationOrdered By: Gordy Matthew on 03-09-2024 Anion gap [Moles/Vol] 9.8 mmol/L Normal 6.0-15.0 [facility] Comment on above: Performed By: #### C RP, CK, CBC, CMP, T4F, ESR, TSH3, ADDONUAPLUS #### [address] #### SPE, KARUNA,URINE, BIGG, HBCAB, ALDOLASE, RPR W RFX, HCV RX PCR, UPE RAND, HBSAB, QUANT TB, CHROMATIN, HBSAG #### [facility] , Sodium [Moles/volume] in Ser um or PlasmaOrdered By: Gordy Farooqrow on 03-09-2024 Sodium [Moles/Vol] 139 mmol/L Normal 136-145 [facility] Comment on above: Performed By: #### C RP, CK, CBC, CMP, T4F, ESR, TSH3, ADDONUAPLUS #### [address] #### SPE, KARUNA,URINE, BIGG, HBCAB, ALDOLASE, RPR W RFX, HCV RX PCR, UPE RAND, HBSAB, QUANT TB, CHROMATIN, HBSAG #### [facility] , Specific gravity Test strip (U) [Rel density]Ordered By: Gordy Matthew on 03-09-2024 Specific gravity (U) [Rel density] 1.013 1.001-1.030 [facility] Thyrotropin [Units/volume] i n Serum or PlasmaOrdered By: Gordy Matthew on 03-09-2024 TSH Qn 2.78 m[IU]/L Normal 0.45-5.33 [facility] Comment on above: Result Comment: PERF ORMED BY: [place] [address] PATHOLOGIST STEREO OPERATOR JOCELYN EDGE M.D. Performed By: #### C RP, CK, CBC, CMP, T4F, ESR, TSH3, ADDONUAPLUS #### [place] [address] [place] #### SPE, KARUNA,URINE, BIGG, HBCAB, ALDOLASE, RPR W RFX, HCV RX PCR, UPE RAND, HBSAB, QUANT TB, CHROMATIN, HBSAG #### [facility] , Thyroxine (T4) free [Mass/vo lume] in Serum or PlasmaOrdered By: Gordy Matthew on 03-09-2024 Free T4 [Mass/Vol] 0.78 ng/dL Normal 0.61-1.12 [facility] Comment on above: Performed By: #### C RP, CK, CBC, CMP, T4F, ESR, TSH3, ADDONUAPLUS #### [facility] [address] [place] [address] #### SPE, KARUNA,URINE, BIGG, HBCAB, ALDOLASE, RPR W RFX, HCV RX PCR, UPE RAND, HBSAB, QUANT TB, CHROMATIN, HBSAG #### [facility] , Urea nitrogen [Mass/volume] in Serum or PlasmaOrdered By: Gordy Matthew on 03-09-2024 Urea nitrogen [Mass/Vol] 15 mg/dL Normal 01-06 [facility] Comment on above: Performed By: #### C RP, CK, CBC, CMP, T4F, ESR, TSH3, ADDONUAPLUS #### [facility] [address] [place] [address] [place] #### SPE, KARUNA,URINE, BIGG, HBCAB, ALDOLASE, RPR W RFX, HCV RX PCR, UPE RAND, HBSAB, QUANT TB, CHROMATIN, HBSAG #### [facility] , Urine appearanceOrdered By: Gordy Matthew on 03-09-2024 Appearance (U) Cloudy Critically abnormal Clear [facility] Comment on above: Order Comment: Name Collection Type:: Clean-Voided Midstream Performed By: #### C RP, CK, CBC, CMP, T4F, ESR, TSH3, ADDONUAPLUS #### [facility] [address] [place] [address] [place] #### SPE, KARUNA,URINE, BIGG, HBCAB, ALDOLASE, RPR W RFX, HCV RX PCR, UPE RAND, HBSAB, QUANT TB, CHROMATIN, HBSAG #### [facility] , Urobilinogen Test strip (U) [Mass/Vol]Ordered By: Gordy Matthew on 03-09-2024 Urobilinogen (U) [Mass/Vol] Normal mg/dL Normal [facility] pH of Urine by Test stripOrd ered By: Gordy Matthew on 03-09-2024 pH (U) 7.0 [pH] Normal 5.0-9.0 [facility] Comment on above: Order Comment: Name Collection Type:: Clean-Voided Midstream Performed By: #### C RP, CK, CBC, CMP, T4F, ESR, TSH3, ADDONUAPLUS #### [facility] [address] #### SPE, KARUNA,URINE, BIGG, HBCAB, ALDOLASE, RPR W RFX, HCV RX PCR, UPE RAND, HBSAB, QUANT TB, CHROMATIN, HBSAG #### [facility] , COVID/FLU/RSV RT-PCRon 06-14 SARS-CoV-2 (COVID-19) RNA VIVEK+probe Ql (Unsp spec) Negative [facility] Other COVID/FLU/RSV RT-PCR Negative [place] Other COVID/FLU/RSV RT-PCR Positive [place] Other Outside Colonoscopyon 2022 Outside Colonoscopy [id number] 0#1.00CD:127 Normal [facility] Reminderson 10-02-2022 Reminders - From: Kisha Samuel LPN To: GSN - Clinical; Sent: 10/02/2022 08:43:18 EDT Show up: 08/31/2032 07:00:00 EDT Subject: colonoscopy recall Due Date/Time: 10/01/2032 07:00:00 EDT Reminder/Recall Patient is due for screening colonoscopy 10/01/2032. Normal [facility] Consent for Procedure/Surger yon 09-11-2022 Consent for Procedure/Surgery [id number] #1.00CD:127 [facility] Facesheeton 09-11-2022 Facesheet [id number] #1.00CD:127 [facility] Pre-Certification Formon Pre-Certification Form [id number] 1#1.00CD:127 [facility] Ambulatory Visit Summaryon 0 09-10-2022 Ambulatory [...] reflux disease) Osteoarthritis Seasonal allergic rhinitis Normal [facility] Physician Referralon 023 Physician Referral [id number] #1.00CD:127 [facility] Follow-Upon 05-15-2022 Follow-Up [id number] Brie Eagle 1955 F Date Provider Department Center 05/15/2022 TIMMY ROMAN MP ORTHO MPORTHO Family History Problem Relation Age of Onset Diabetes Mother Heart disease Mother Arthritis Mother No Known Problems Father Family Status - Relation Status Age at Mother Father Level of Service:29202 [place] OFFICE/OUTPATIENT ESTABLISHED LOW MDM 20-29 MIN Reason for Visit and Comments: Follow-up [584909] - Yearly follow up Normal [facility] XR DEXA BONE DENSITYon 04-28 [...] Osteopenia. Moderate fracture risk Electronically authenticated by: SETPHANIE RAYA Date: 2022-04-28 17:04 Normal [facility] MG MAMM SCREEN 3D ARCELIA CADon 04-23-2022 MG MAMM SCREEN 3D ARCELIA CAD Patient: BRIE EAGLE Exam Date: 04/23/2022 : 1955 Gender:F Ordering : DR ARETHA BREWTSER . Admission #: [id number] Family : Order #: [id number] CLICK HERE TO VIEW EXAM RADIOLOGY REPORT PROCEDURE: MAMMOGRAM SCREENING 3D BILATERAL CAD COMPARISON: MG MAMM SCREEN 3D ARCELIA CAD, 04/17/2021. INDICATIONS: Screening mammography Calculator Name NCI Breast Cancer Risk Assessment Tool 5 Year Breast Cancer Risk Not Reported. Lifetime Breast Cancer Risk Not Reported. Personal Breast Cancer No Personal Ovarian Cancer No Treatments None Family Cancers None LOCATION: [facility] BREAST COMPOSITION: Scattered areas fibroglandular density. [...] MD on 04/23/2022 at 13:10 Normal [facility] NM STRESS/REST MULTIon 04-10 NM STRESS/REST MULTI Patient: BRIE EAGLE Exam Date: 04/10/2022 : 1955 Gender:F Ordering : DR ARETHA BREWSTER . Admission #: [id number] Family : Order #: [id number] CLICK HERE TO VIEW EXAM RADIOLOGY REPORT [...] M.D. on 04/10/2022 at 13:53 Normal [facility] AMYLASEon 03-24-2022 Amylase [Catalytic activity/Vol] 51 U/L Normal 25-115 [facility] Comment on above: Performed By: #### A MY, LIPA, CMADM, HSTROPN #### [facility] [address] [place] [address] Dr. Christos Richardson CARDIAC MONA ADMITon 022 CK [Catalytic activity/Vol] 67 U/L Normal 26-192 [facility] Comment on above: Performed By: #### A MY, LIPA, CMADM, HSTROPN #### [facility] [address] [place] [address] Dr. Christos Richardson CK.MB [Mass/Vol] 0.93 ng/mL Normal <=3.60 [facility] Comment on above: Performed By: #### A MY, LIPA, CMADM, HSTROPN #### [facility] [address] [address] [address] Christos Richardson GAYATHRI 32 ng/mL Normal 9-82 [facility] Comment on above: Performed By: #### A MY, LIPA, CMADM, HSTROPN #### [facility] [address] [place] [address] Dr. Christos Richardson CBC AUTO DIFFon 03-24-2022 BASO # 0.1 103/ul Normal 0.0-0.1 [facility] Comment on above: Performed By: #### C BC ####[facility] [address] [place] [id number]. Christos Richardson Basophils/100 WBC (Bld) 0.7 % Normal 0.2-2.0 [facility] Comment on above: Performed By: #### C BC ####[facility] [address] [place], [place] [address]Dr. Christos Richardson EO # 0.1 103/ul Normal 0.0-0.7 [facility] Comment on above: Performed By: #### C BC ####[facility] [address] [place], [place] [address]Dr. Christos Richardson Eosinophils/100 WBC (Bld) 0.8 % Critically low 0.9-7.0 [facility] Comment on above: Performed By: #### C BC ####[facility] [address] [place], [place] [address]Dr. Christos Richardson Erythrocyte distribution width (RBC) [Ratio] 13.4 % Normal 11.0-15.0 [facility] Comment on above: Performed By: #### C BC ####[facility] Q[address] [place], [place] [address]Dr. Christos Richardson Hematocrit (Bld) [Volume fraction] 40.9 % Normal 36.0-48.0 [facility] Comment on above: Performed By: #### C BC ####[facility] [address] [place], [place] [address]Dr. Christos Richardson Hemoglobin (Bld) [Mass/Vol] 13.3 g/dL Normal 12.0-16.0 [facility] Comment on above: Performed By: #### C BC ####[facility] [address] [place], [place] [address]Dr. Christos Richardson IG # 0.02 10e3/ul Normal 0.00-0.03 [facility] Comment on above: Performed By: #### C BC ####[facility] [address] [place], [place] [address]Dr. Christos Richardson IG % 0.3 % Normal 0.0-0.5 [facility] Comment on above: Performed By: #### C BC ####[facility] [address] [place] [id number]. Christos Richardson LYMPH # 2.3 103/ul Normal 1.2-3.8 [facility] Comment on above: Performed By: #### C BC ####[facility] [address] [place] [id number]. Christos Richardson Lymphocytes/100 WBC (Bld) 32.6 % Normal 20.5-60.0 [facility] Comment on above: Performed By: #### C BC ####[facility] [address] [place] [id number]. Christos Richardson MANUAL DIFF REQ NO Normal [facility] Comment on above: Performed By: #### C BC ####[facility] [address] [place] [id number]. Christos Richardson MCH (RBC) [Entitic mass] 29.2 pg Normal 26.7-34.0 [facility] Comment on above: Performed By: #### C BC ####[facility] [address] [place] [id number]. Christos Richardson MCHC (RBC) [Mass/Vol] 32.5 g/dL Normal 29.9-35.2 [facility] Comment on above: Performed By: #### C BC ####[facility] [address] [place] [id number]. Christos Richardson MCV (RBC) [Entitic vol] 89.9 fL Normal 81.0-99.0 [facility] Comment on above: Performed By: #### C BC ####[facility] [address] [place] [id number]. Christos Richardson MONO # 1.0 103/ul Critically high 0.3-0.8 [facility] Comment on above: Performed By: #### C BC ####[facility] [address] [place] [id number]. Christos Richardson Monocytes/100 WBC (Bld) 14.2 % Critically high 1.7-12. 0 [facility] Comment on above: Performed By: #### C BC ####[facility] [address] [place] [id number]. Christos Richardson NEUT # 3.7 103/ul Normal 1.4-6.5 [facility] Comment on above: Performed By: #### C BC ####[facility] [address] [place] [id number]. Christos Richardson Neutrophils/100 WBC (Bld) 51.4 % Normal 43.0-75.0 [facility] Comment on above: Performed By: #### C BC ####[facility] [address] [place] [phone]. Christos Richardson Platelet mean volume (Bld) [Entitic vol] 9.7 fL Normal 9.5-13.5 [facility] Comment on above: Performed By: #### C BC ####[facility] [address] [place] [address]Dr. Christos Richardson PLT 271 103/ul Normal 150-450 [facility] Comment on above: Performed By: #### C BC ####[facility] [address] [place] [id number]. Christos Richardson RBC 4.55 106/ul Normal 4.20-5.40 [facility] Comment on above: Performed By: #### C BC ####[facility] [address] [place] [id number]. Christos Richardson WBC 7.1 103/ul Normal 4.0-11.0 [facility] Comment on above: Performed By: #### C BC ####[facility] [address] [place] [phone] Richardson LIPASEon 03-24-2022 Lipase [Catalytic activity/Vol] 104.0 U/L Normal 73.0-393.0 [facility] Comment on above: Performed By: #### A MY, LIPA, CMADM, HSTROPN #### [facility] [address] [place], [place] [address] Dr. Christos Richardson TROPONIN, HIGH SENSITIVITYon 03-24-2022 HSTROP 6.6 pg/mL Normal 4.0-51.3 [facility] Comment on above: Result Comment: CUT- OFF POINTS HAVE BEEN ESTABLISHED BASED ON THE FOURTH UNIVERSAL DEFINITIONS OF MYOCARDIAL INFARCTION. THE UPPER REFERENCE LIMIT (URL) OF TROPONIN, DEFINED THE 99TH PERCENTILE OF cTnI DISTRIBUTION IN A REFERENCE POPULATION, HAS BEEN CONFIRMED THE DECISION THRESHOLD FOR [place] DIAGNOSIS. Performed By: #### H STROPN ####[facility] [address] [place], [place] [address]VzDr. Christos Richardson HSTROP 6.3 pg/mL Normal 4.0-51.3 [facility] Comment on above: Result Comment: CUT- OFF POINTS HAVE BEEN ESTABLISHED BASED ON THE FOURTH UNIVERSAL DEFINITIONS OF MYOCARDIAL INFARCTION. THE UPPER REFERENCE LIMIT (URL) OF TROPONIN, DEFINED THE 99TH PERCENTILE OF cTnI DISTRIBUTION IN A REFERENCE POPULATION, HAS BEEN CONFIRMED THE DECISION THRESHOLD FOR [place] DIAGNOSIS. Performed By: #### A MY, LIPA, CMADM, HSTROPN #### [facility] [address] [address] [address] Christos Richardson XR CHEST 1 Von [...] ULISES CALDERON Date: 2022-03-24 13:53 Normal [facility] INSULINon 01-09-2022 Insulin 10.4 uIU/mL Normal 2.6-24.9 [facility] Comment on above: Performed By: #### I NSULIN #### [facility] [address] [address] [address] Christos Richardson CBC AUTO DIFFon 01-08-2022 BASO # 0.1 103/ul Normal 0.0-0.1 [facility] Comment on above: Performed By: #### C BC #### [facility] [address] [place] [address] Dr. Christos Richardson Basophils/100 WBC (Bld) 0.8 % Normal 0.2-2.0 [facility] Comment on above: Performed By: #### C BC #### [facility] [address] [place] [address] Dr. Christos Richardson EO # 0.1 103/ul Normal 0.0-0.7 [facility] Comment on above: Performed By: #### C BC #### [facility] [address] [place] [address] Dr. Christos Richardson Eosinophils/100 WBC (Bld) 1.5 % Normal 0.9-7.0 [facility] Comment on above: Performed By: #### C BC #### [facility] [address] [place] [address] Dr. Christos Richardson Erythrocyte distribution width (RBC) [Ratio] 13.6 % Normal 11.0-15.0 [facility] Comment on above: Performed By: #### C BC #### [facility] [address] [place] [address] Dr. Christos Richardson Hematocrit (Bld) [Volume fraction] 40.4 % Normal 36.0-48.0 [facility] Comment on above: Performed By: #### C BC #### [facility] [address] [place] [address] Dr. Christos Richardson Hemoglobin (Bld) [Mass/Vol] 12.9 g/dL Normal 12.0-16.0 [facility] Comment on above: Performed By: #### C BC #### [facility] [address] [place] [address] Dr. Christos Richardson IG # 0.01 10e3/ul Normal 0.00-0.03 [facility] Comment on above: Performed By: #### C BC #### [facility] [address] [place] [address] Dr. Christos Richardson IG % 0.2 % Normal 0.0-0.5 [facility] Comment on above: Performed By: #### C BC #### [facility] [address] [address] [address] Christos Richardson LYMPH # 2.4 103/ul Normal 1.2-3.8 [facility] Comment on above: Performed By: #### C BC #### [facility] [address] [address] [address] Christos Richardson Lymphocytes/100 WBC (Bld) 39.7 % Normal 20.5-60.0 [facility] Comment on above: Performed By: #### C BC #### [facility] [address] [place] [address] Dr. Christos Richardson MANUAL DIFF REQ NO Normal [facility] Comment on above: Performed By: #### C BC #### [facility] [address] [place] [address] Dr. Christos Richardson MCH (RBC) [Entitic mass] 29.0 pg Normal 26.7-34.0 [facility] Comment on above: Performed By: #### C BC #### [facility] [address] [place] [address] Dr. Christos Richardson MCHC (RBC) [Mass/Vol] 31.9 g/dL Normal 29.9-35.2 [facility] Comment on above: Performed By: #### C BC #### [facility] [address] [place] [address] Dr. Christos Richardson MCV (RBC) [Entitic vol] 90.8 fL Normal 81.0-99.0 [facility] Comment on above: Performed By: #### C BC #### [facility] [address] [place] [address] Dr. Christos Richardson MONO # 0.8 103/ul Normal 0.3-0.8 [facility] Comment on above: Performed By: #### C BC #### [facility] [address] [place] [address] Dr. Christos Richardson Monocytes/100 WBC (Bld) 13.5 % Critically high 1.7-12. 0 [facility] Comment on above: Performed By: #### C BC #### [facility] [address] [address] [address] Christos Richardson NEUT # 2.7 103/ul Normal 1.4-6.5 [facility] Comment on above: Performed By: #### C BC #### [facility] [address] [address] [address] Christos Richardson Neutrophils/100 WBC (Bld) 44.3 % Normal 43.0-75.0 [facility] Comment on above: Performed By: #### C BC #### [facility] [address] [address] [address] Christos Richardson Platelet mean volume (Bld) [Entitic vol] 10.4 fL Normal 9.5-13.5 [facility] Comment on above: Performed By: #### C BC #### [facility] [address] [place] [address] Dr. Christos Richardson PLT 287 103/ul Normal 150-450 [facility] Comment on above: Performed By: #### C BC #### [facility] [address] [address] [address] Christos Richardson RBC 4.45 106/ul Normal 4.20-5.40 [facility] Comment on above: Performed By: #### C BC #### [facility] [address] [address] [address] Christos Richardson WBC 6.1 103/ul Normal 4.0-11.0 [facility] Comment on above: Performed By: #### C BC #### [facility] [address] [address] [address] Christos Richardson FREE THYROXINE INDEX T7on FTI 2.00 Normal 1.30-4.50 [facility] Comment on above: Performed By: #### C MP, T7, LIPID, TSH ####[facility] [address] [place] [address]Dr. Christos Richardson T3U 35.0 % Normal 30.0-39.0 [facility] Comment on above: Performed By: #### C MP, T7, LIPID, TSH ####[facility] [address] [place] [id number]. Christos Richardson T4 [Mass/Vol] 5.70 ug/dL Normal 4.80-13.90 [facility] [place] [facility] Comment on above: Performed By: #### C MP, T7, LIPID, TSH ####[facility] [address] [place] [id number]. Christos Richardson GLYCOHEMOGLOBIN A1Con 2021 ADA RECOMMENDATION SEE BELOW Normal [facility] Comment on above: Result Comment: ADA RECOMMENDED LIMIT 4.0 - 6.0 ADA THERAPEUTIC TARGET < 7.0 ACTION SUGGESTED > 7.0 Performed By: #### A 1C ####[facility] [address] [place] [address]Dr. Christos Richardson Glucose [Mass/Vol] 114 mg/dL Normal [facility] Comment on above: Performed By: #### A 1C ####[facility] [address] [place] [address]Dr. Christos Richardson HbA1c (Bld) [Mass fraction] 5.6 % Normal 4.5-6.2 [facility] Comment on above: Performed By: #### A 1C ####[facility] [address] [place] [address]Dr. Christos Richardson IRONon 01-08-2022 Iron [Mass/Vol] 100.0 ug/dL Normal 50.0-170.0 [facility] Comment on above: Performed By: #### I BLANCO ####[facility] [address] [place], [place] [address]Dr. Christos Richardson LIPID PROFILEon 01-08-2022 CHOL-HDL RATIO NORM SEE BELOW Normal [facility] Comment on above: Result Comment: 3.3 - 4.4 LOW RISK 4.4 - 7.1 AVERAGE RISK 7.1 - 11.0 MODERATE RISK >11.0 HIGH RISK Performed By: #### C MP, T7, LIPID, TSH ####[facility] [address] [place] [address]Dr. Christos Richardson Cholesterol [Mass/Vol] 187 mg/dL Normal <=200 Th [facility] Comment on above: Performed By: #### C MP, T7, LIPID, TSH ####[facility] [address] [place], [place] [address]Mz. Christos Richardson Cholesterol in HDL [Mass/Vol] 63 mg/dL Critically high 40-60 [facility] Comment on above: Performed By: #### C MP, T7, LIPID, TSH ####[facility] [address] [place] [id number]. Christos Richardson Cholesterol in LDL [Mass/Vol] 110.8 mg/dL Normal [facility] Comment on above: Performed By: #### C MP, T7, LIPID, TSH ####[facility] [address] [place] [address]Dr. Christos Richardson Cholesterol.total/Kylee sterol in HDL [Mass ratio] 3.0 {ratio} Normal [facility] Comment on above: Performed By: #### C MP, T7, LIPID, TSH ####[facility] [address] [place] [id number]. Christos Richardson HDL NORMAL > or = 60 mg/dl - LOW CARDIOVASCULAR RISK <40 mg/dl - HIGH CARDIOVASCULAR RISK Normal [facility] Comment on above: Performed By: #### C MP, T7, LIPID, TSH ####[facility] [address] [place] [address]Dr. Christos Richardson LDL CALC NORMAL SEE BELOW Normal [facility] Comment on above: Result Comment: <100 mg/dl OPTIMAL 100 - 129 mg/dl NEAR OR ABOVE OPTIMAL 130 - 159 mg/dl BORDERLINE HIGH 160 - 189 mg/dl HIGH >190 mg/dl VERY HIGH Performed By: #### C MP, T7, LIPID, TSH ####[facility] [address] [place] [address]Dr. Christos Richardson Triglyceride [Mass/Vol] 66 mg/dL Normal <=150 T [facility] Comment on above: Performed By: #### C MP, T7, LIPID, TSH ####[facility] [address] [place] [address]Dr. Christos Richardson VLDL CALC 13.2 mg/dL Normal [facility] Comment on above: Performed By: #### C MP, T7, LIPID, TSH ####[facility] [address] [place] [address]Dr. Christos Richardson PROF 14(COMP METB)on 022 Albumin [Mass/Vol] 3.4 g/dL Normal 3.4-5.0 [facility] Comment on above: Performed By: #### C MP, T7, LIPID, TSH ####[facility] [address] [place] [address]Dr. Christos Richardson Albumin/Globulin [Mass ratio] 0.9 {ratio} Normal [facility] Comment on above: Performed By: #### C MP, T7, LIPID, TSH ####[facility] [address] [place] [address]Dr. Christos Richardson ALP [Catalytic activity/Vol] 79 U/L Normal 46-116 [facility] Comment on above: Performed By: #### C MP, T7, LIPID, TSH ####[facility] [address] [place] [address]Dr. Christos Richardson ALT [Catalytic activity/Vol] 22 U/L Normal 14-59 [facility] Comment on above: Performed By: #### C MP, T7, LIPID, TSH ####[facility] [address] [place] [address]Dr. Christos Richardson Anion gap [Moles/Vol] 11.5 mmol/L Normal [facility] Comment on above: Performed By: #### C MP, T7, LIPID, TSH ####[facility] [address] [place] [address]Dr. Christos Richardson AST [Catalytic activity/Vol] 16 U/L Normal 15-37 [facility] Comment on above: Performed By: #### C MP, T7, LIPID, TSH ####[facility] [address] [place] [address]Dr. Christos Richardson Bilirubin [Mass/Vol] 0.3 mg/dL Normal 0.2-1.0 [facility] Comment on above: Performed By: #### C MP, T7, LIPID, TSH ####[facility] [address] [place] [address]Dr. Christos Richardson Calcium [Mass/Vol] 9.1 mg/dL Normal 8.5-10.1 [facility] Comment on above: Performed By: #### C MP, T7, LIPID, TSH ####[facility] [address] [place] [address]Dr. Christos Richardson Chloride [Moles/Vol] 106 mmol/L Normal 98-107 [facility] Comment on above: Performed By: #### C MP, T7, LIPID, TSH ####[facility] [address] [place] [address]Dr. Christos Richardson CO2 [Moles/Vol] 27.7 mmol/L Normal 21.0-32.0 [facility] Comment on above: Performed By: #### C MP, T7, LIPID, TSH ####[facility] [address] [place] [address]Dr. Christos Richardson Creatinine [Mass/Vol] 0.75 mg/dL Normal 0.55-1.02 [facility] Comment on above: Performed By: #### C MP, T7, LIPID, TSH ####[facility] [address] [place] [address]Dr. Christos Richardson EGFR-AF ARMENIAN >60 Normal >=60 [facility] Comment on above: Performed By: #### C MP, T7, LIPID, TSH ####[facility] [address] [place] [address]Dr. Christos Richardson EGFR-NON AF ARMENIAN >60 Normal >=60 [facility] Comment on above: Performed By: #### C MP, T7, LIPID, TSH ####[facility] [address] [place] [address]Dr. Christos Richardson Globulin (S) [Mass/Vol] 3.9 g/dL Normal T [facility] Comment on above: Performed By: #### C MP, T7, LIPID, TSH ####[facility] [address] [place] [address]Dr. Christos Richardson Glucose [Mass/Vol] 95 mg/dL Normal 74-106 [facility] Comment on above: Performed By: #### C MP, T7, LIPID, TSH ####[facility] [address] [place] [address]Dr. Christos Richardson Potassium [Moles/Vol] 4.2 mmol/L Normal 3.5-5.1 [facility] Comment on above: Performed By: #### C MP, T7, LIPID, TSH ####[facility] [address] [place] [address]Dr. Christos Richardson Protein [Mass/Vol] 7.3 g/dL Normal 6.4-8.2 [facility] Comment on above: Performed By: #### C MP, T7, LIPID, TSH ####[facility] [address] [place] [address]Dr. Christos Richardson Sodium [Moles/Vol] 141 mmol/L Normal 136-145 [facility] Comment on above: Performed By: #### C MP, T7, LIPID, TSH ####[facility] [address] [place] [address]Dr. Christos Richardson Urea nitrogen [Mass/Vol] 15.0 mg/dL Normal 7.0-18.0 [facility] Comment on above: Performed By: #### C MP, T7, LIPID, TSH ####[facility] [address] [place] [address]Dr. Christos Richardson Urea nitrogen/Creatinine [Mass ratio] 20.0 mg/mg Normal [facility] Comment on above: Performed By: #### C MP, T7, LIPID, TSH ####[facility] [address] [place] [address]Dr. Christos Richardson TSHon 01-08-2022 TSH 3.880 uIU/mL Critically high 0.358-3.740 [facility] Comment on above: Performed By: #### C MP, T7, LIPID, TSH ####[facility] [address] [place] [address]Dr. Christos Richardson HIP LEFT 1 OR 2 VWS WITH PEL VISon 05-29-2021 HIP LEFT 1 OR 2 VWS WITH PELVIS [facility] Department of Radiology [address] [place] [id number] Patient Name: BRIE EAGLE : 1955 [...] prosthesis. Electronically signed: Eder Crowder. Transcribed by: [email or web address], User Resident: EDER CROWDER Electronically Signed by: EDER CROWDER @ 05/30/2021 12:27 PM I personally read this/these film(s) with this resident Normal [facility] Comment on above: Order Comment: evalu ate Vital Signs Date Time Vital Sign Value Performing Clinician Facility 06-14-2023 09:30-0500 Body height 162.56 cm Sarah Sargent Other [facility] Other 06-14-2023 09:30-0500 Body mass index (BMI) [Ratio] 30.65 kg/m2 Sarah Sargent Other [facility] Other 06-14-2023 09:30-0500 Body temperature 98.8 [degF] Sarah Sargent Other [facility] Other 06-14-2023 09:30-0500 Body weight 81.01 kg Sarah Sargent Other [facility] Other 06-14-2023 09:30-0500 Diastolic blood pressure 67 mm[Hg] Sarah Mensahler Other [facility] Other 06-14-2023 09:30-0500 Respiratory rate 16 /min Sarah Sargent Other [facility] Other 06-14-2023 09:30-0500 SaO2% (BldA) [Mass fraction] 96 % Sarah Sargent Other [facility] Other 06-14-2023 09:30-0500 Systolic blood pressure 129 mm[Hg] Sarah Sargent Other [facility] Other 09-10-2022 15:17-0400 Blood Pressure Location Lui GAMINO [facility] 09-10-2022 15:17-0400 Diastolic blood pressure 64 mm[Hg] Lui GAMINO [facility] 09-10-2022 15:17-0400 Heart rate 72 /min Lui GAMINO [facility] 09-10-2022 15:17-0400 Respiratory rate 16 /min Lui GAMINO [facility] 09-10-2022 15:17-0400 Systolic blood pressure 138 mm[Hg] Lui GAMINO [facility] 11-12-2021 17:50-0400 Body height 162.56 cm Olivia Dean Other [facility] Other 11-12-2021 17:50-0400 Body mass index (BMI) [Ratio] 27.46 kg/m2 Olivia Dianne Other [facility] Other 11-12-2021 17:50-0400 Body temperature 97.8 [degF] Olivia Dean Other [facility] Other 11-12-2021 17:50-0400 Body weight 72.58 kg Olivia Dianne Other [facility] Other 11-12-2021 17:50-0400 Diastolic blood pressure 59 mm[Hg] Olivia Dianne Other [facility] Other 11-12-2021 17:50-0400 Respiratory rate 16 /min Olivia Dean Other [facility] Other 11-12-2021 17:50-0400 SaO2% (BldA) [Mass fraction] 98 % Olivia Dean Other [facility] Other 11-12-2021 17:50-0400 Systolic blood pressure 130 mm[Hg] Olivia Dean Other [facility] Other Encounters Encounter Date Encounter Type Care Provider Facility Start: 03-09-2024 End: 03-09-2024 Patient encounter procedure MD Aretha Brewster Work Phone: [facility] [address] Work Phone: Start: 03-09-2024 End: 03-09-2024 ambulatory MD Aretha Brewster Work Phone: [facility] Work Phone: Start: 01-27-2024 End: 01-27-2024 ambulatory EUGENIO H TIMMIS Not Available Start: 01-04-2024 End: 01-04-2024 ambulatory EUGENIO H TIMMIS Not Available Start: 09-01-2023 End: 09-01-2023 ambulatory EUGENIO H TIMMIS Not Available Start: 06-14-2023 End: 06-14-2023 ambulatory Sarah Sargent Other [facility] Other Start: 06-14-2023 Office outpatient vi sit [...] Start: 05-15-2022 End: 05-16-2022 ambulatory TIMMY TINSLEY [facility] Start: 04-28-2022 End: 04-29-[address] ARETHA BREWSTER . Facility:[facility] Start: 04-23-2022 End: 04-24-[address] ARETHA BREWSTER . Facility:[facility] Start: 04-10-2022 End: 04-11-[address] ARETHA BREWSTER . Facility:[facility] Start: 03-24-2022 End: 03-24-2022 ambulatory JESSICA YAZ . Facility:[facility] Start: 01-14-2022 Encounter for genera l adult medical examination without abnormal findings DR ARETHA BREWSTER . [facility] Start: 01-08-2022 End: 01-09-[address] ARETHA BREWSTER . Facility:[facility] Start: 01-08-2022 End: 01-09-2022 Encounter for general adult medical examination without abnormal findings DR ARETHA BREWSTER . Facility:[facility] Start: 11-12-2021 End: 11-12-2021 ambulatory Olivia Dean Other [facility] Other Start: 11-12-2021 Office outpatient vi sit 15 minutes Olivia Dean [facility] Procedures Date [...] 03-09-2024 Hepatitis B core ant ibody measurement [facility] Start: 03-09-2024 [facility] Albumin [Mass/volume ] in Serum or Plasma [facility] Albumin/Globulin ratio [facility] Aldolase measurement [facility] Chromatin Ab [Units/ volume] in Serum or Plasma [facility] Electrophoresis: [id number] [facility] Electrophoresis: uxvvu-6-clvcanld [facility] Electrophoresis: beta-globulin [facility] Electrophoresis: gamma globulin [facility] Globulin [Mass/volume] in Serum [facility] Hepatitis B virus ortiz rface Ab [Presence] in Serum [facility] Hepatitis B virus ortiz rface Ag [Presence] in Serum or Plasma by Immunoassay [facility] Hepatitis C virus Ig G Ab [Presence] in Serum or Plasma by Immunoassay [facility] Homogenous nuclear A b pattern [Titer] in Serum [facility] Immunofixation for Urine [facility] Interferon gamma assay [facility] Measurement of monoc lonal protein concentration [facility] Mycobacterium tuberc ulosis stimulated gamma interferon [Interpretation] in Blood Qualitative [facility] Mycobacterium tuberc ulosis stimulated gamma interferon release by CD4+ and CD8+ T-cells [Units/volume] corrected for background in Blood [facility] Mycobacterium tuberc ulosis tuberculin stimulated gamma interferon [Presence] in Blood [facility] Nuclear Ab [Titer] in Serum [facility] Protein [Mass/volume ] in Serum or Plasma [facility] Protein [Mass/volume] in Urine [facility] Reagin Ab [Presence] in Serum by RPR [facility] Immunizations Immunization Date Immunization Notes Care Provider Fa cili 04-15-2022 influenza virus vaccine, unspecified formulation Lui GAMINO [facility] 04-14-2022 SARS-CoV-2 (COVID-19 ) [id number] Lui GAMINO [facility] 02-10-2022 SARS-CoV-2 mRNA (ajyckmesgpc-hgmp-xoltj se) vaccine Lui GAMINO [facility] 08-26-2021 SARS-CoV-2 mRNA (kiosfbamzpt-lkyq-ipcae se) vaccine Lui GAMINO [facility] 02-25-2021 SARS-CoV-2 (COVID-19 ) mRNA BNT-162b2 vax Lui GAMINO [facility] 02-04-2021 SARS-CoV-2 (COVID-19 ) mRNA BNT-162b2 vax Lui GAMINO [facility] Payers Date Payer Category Payer Self-pay 1958 Medicare [id number] 1955 Unknown [id number] 2.16.84 [id number] 1955 Unknown [id number] 2.16.84 [id number] 1955 Unknown [id number] 2.16.84 [id number] 1956 Unknown [id number] 2.16.84 [id number] 1956 Unknown [id number] 2.16.84 [id number] 1956 Unknown [id number] 2.16.84 [id number] 1956 Unknown [id number] 2.16.84 [id number] 1955 Unknown [id number] 2.16.8 [id number] 1956 Unknown [id number] 2.16.8 [id number] 1956 Unknown [id number] 2.16.84 [id number] 1955 Unknown [id number] 2.16.84 [id number] 1956 Unknown [id number] 2.16.84 [id number] Private Health Insurance [id number] Unknown [id number] 2.16.8 [id number] Social History Date Type Detail Facility Sex Assigned At [facility]: 09-10-2022 Tobacco smoking status Ex-smoker (fi nding) [facility] Tobacco smoking status Never [facility] Start: 1955 Sex Assigned At Female F [facility] Functional Status Date Assessment Result Facility 09-10-2022 Functional Status N/A [facility] Clinical Notes 11-12-2021 to 06-14-2023 Note Date [...] previous rx of steroids. Use rx of Saxe as directed. Discussed importance of adequate hydration [...] plan. Patient sent home in stable condition. [facility] Other 04-19-2023 NoteOPERATIVE NOTE OPERATION DATE: 10/01/2022 ADDENDUM: Please add to the operative report - Follow up screening colonoscopy should be in 10 years.[id number] NoteOPERATIVE NOTE OPERATION DATE: 10/01/2022 PREOPERATIVE DIAGNOSIS: [...] room in good condition. CC: Aretha Brewster M.D.[facility]03-29-2023 NoteChief Complaint consultation for screening colonoscopy [...] and Sister. Immunizations Vaccin (more content not included)...[facility]:Result Comment: Electronically Signed By: HANNY HERNANDEZ, Lui Moeller\Date and Time Signed: 09/10/22 16:09 [id number] NoteOrthopaedic Surgery Outpatient Visit Note Encounter Date: [...] incisional issues. 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) [facility] Other Evaluation + Plan note No data available for this section [facility] Evaluation noteNo assessment information available [facility] Work Phone: [facility] general Narrative - Reported* Type Description Date Medical History arthritis Surgical History pyloniadal cyst Surgical History both knee Surgical History breast reduction Surgical History tubal ligation Surgical History Total hip replacement Hospitalization History see above surg hx [facility] Other Hiswdsr general Narrative - Reported* Type Description Date Medical History arthritis Medical History GERD Surgical History pyloniadal cyst Surgical History both knee Surgical History breast reduction Surgical History tubal ligation Surgical History Total hip replacement Hospitalization History see above surg [facility] Other Hospital Discharge instructions No data available for this section [facility] Progress note No data available for this [...] and content) DATE CREATED AUTHOR 10/25/2021 [facility] DATE CREATED AUTHOR AUTHOR'S ORGANIZ ATION 05/17/2022 [facility] DATE CREATED AUTHOR AUTHOR'S ORGANIZ ATION 10/10/2022 [facility] DATE CREATED AUTHOR AUTHOR'S ORGANIZ ATION 10/10/2022 [facility] DATE CREATED AUTHOR AUTHOR'S ORGANIZ ATION 01/28/[address] [facility] DATE CREATED AUTHOR AUTHOR'S ORGANIZ ATION 03/20/2024 [facility] y[facility] REASON FOR VISIT (unrecogniz ed [...] BE BASED ON THE PRIMARY CLINICAL RECORDS. [employer] provides no warranty or guarantee of the accuracy or completeness of information in this document.
[2024-06-27 10:29] LABS: Free T3 2.77 pg/mL (2.18-3.98); Thyroid Stimulating Hormone 3.333 uIU/mL (0.358-3.740)
== END 2024-06-27 09:26 | disposition home or self-care (01) ==
LOC: LAB 09:27
PROVIDERS: PCP Family Medicine; Visit Provider Family Medicine
DX: E03.9 Hypothyroidism, unspecified (principal)
CPT/HCPCS: 36415; 84436; 84443; 84481

== ENCOUNTER 2024-12-12 10:43 | Outpatient (OUT) | payer MEDICARE, SELFPAY ==
--- OUTSIDE RECORDS SUMMARY | 2024-12-12 10:48 | XMS_ITS | Clinical Summary ---
Author Organization [employer] [facility] tem Address [id number] [place] [address] Care Team Providers Care Sales Correspondence Clerk Name Role Phone Unavailable Primary Care Provider Unavailabl e Allergies Active Allergy Reactions Criticality Noted Date Comments Erythromycin GI Disturbance 01/04/2024 Other Reaction(s): GI upset Latex Dermatitis,Hives 05/15/2022 Other Reaction(s): Not available Medications pantoprazole (PROTONIX) 40 mg EC tablet Take 1 tablet (40 mg total) by mouth every morning before breakfast. Active multivitamin with minerals tablet Take 1 tablet by mouth in the morning. Active Active Problems No known active problems Encounters Date Type Department Care Team Description 09/20/2024 1:00 PM EDT Office Visit [facility] [address] [place] [phone] Brian James MD Aftercare following left hip joint replacement surgery (Primary Dx) 09/20/2024 11:54 AM EDT - 09/20/2024 11:59 PM EDT Hospital Encounter [facility] [address] [place] [phone] Aftercare following left hip joint replacement surgery Discharge Disposition: Home 09/20/2024 Travel 09/12/2024 Travel 09/12/2024 Orders Only [facility] [address] [place] [address] Leonor Guerrero CMA Aftercare following left hip joint replacement surgery (Primary Dx) from Last 3 Months Social History Tobacco Use Types Packs/Day Years Used Date Smoking Tobacco: Former Cigarettes Passive Smoke Exposure: Past Smokeless Tobacco: Never Tobacco Cessation:Counseling Given: Not Answered Alcohol Use Standard Drinks/Week Comments Not Currently 0 (1 standard drink = 0.6 oz pur e alcohol) Comments Unknown Sex and Gender Information Value Date Recorded Sex Assigned at Female 08/11/2024 3:20 PM EST Legal Sex Female 3:18 PM EST Gender Identity Female 08/11/2024 3:20 PM EST Sexual Orientation Straight 08/11/2024 3: 20 PM EST Last Filed Vital Signs Vital Sign Reading Time Taken Comments Blood Pressure - - Pulse - - Temperature - - Respiratory Rate - - Oxygen Saturation - - Inhaled Oxygen Concentration - - Weight 79.8 kg (176 lb) 09/20/2024 12:50 PM EDT Height 161.3 cm (5' 3.5 ) 09/20/2024 12:50 PM ED T Body Mass Index 30.69 09/20/2024 12:50 PM EDT Plan of Treatment Health Maintenance Due Date Last Done Comments Depression Screening 1967 Adult BMI Follow Up Plan 1974 Zoster (Shingles) Vaccine (2 of 3) 05/11/2018 03/16/2018, 11/12/2017 Fall Risk Screening 2021 COVID-19 Vaccine (2023-2 5 season) 2024 04/14/2022, 02/10/2022, 08/26/2021, Additional history exists Influenza Vaccine 02/13/2025 05/04/2023, , 04/11/2021, Additional history exists Adult BMI Screening 09/20/2025 09/20/2024 Tobacco Screening 09/20/2025 09/20/2024 DTaP,Tdap and Td Vaccines (5 - Td or Tdap) 09/25/2027 09/24/2017, 04/23/2007, 05/06/2004, Additional history exists Medical Devices Not on file Procedures Procedure Name Priority Date/Time Associated Diagnosis Comments XR HIP LT 2-3 VIEWS W OR WO PELVIS Routine 09/20/2024 12:03 PM EDT Aftercare following left hip joint replacement surgery from Last 3 Months Results * X-ray hip left 2-3 views with or without pelvis (09/20/2024 12:03 PM EDT) Anatomical Region Laterality Modality Lower Extremities, MSK, Hip Left Comp uted Radiography 09/20/2024 3:17 PM EDT Narrative 09/20/2024 3:18 PM EDT CLINICAL INFORMATION: Aftercare following left hip joint replacement surgery TECHNIQUE: XR HIP LT 2-3 VIEWS W OR WO PELVIS 3 views left hip are obtained. Patient status post left hip arthroplasty. Hardware appears intact. Alignment anatomic. IMPRESSION: Satisfactory postoperative hip. Finalized by Jasiel Price MD on 09/20/2024 3:18 PM Procedure Note Jasiel Price MD - 09/20/2024 CLINICAL INFORMATION: Aftercare following left hip joint replacement surgery TECHNIQUE: XR HIP LT 2-3 VIEWS W OR WO PELVIS 3 views left hip are obtained. Patient status post left hip arthroplasty.Hardware appears intact. Alignment anatomic. IMPRESSION: Satisfactory postoperative hip. Finalized by Jasiel Price MD on 09/20/2024 3:18 PM Brian James MD IMG DIAGNOSTIC IMAGING ORDER NENO Final Result from Last 3 Months Insurance MEDICARE HMO/PPO - GENERIC PLAN
--- OUTSIDE RECORDS SUMMARY | 2024-12-12 10:48 | XMS_ITS | Referral Summary ---
Author Organization [facility] Address [address] [place] [address] Care Team Providers Care Merchandise For Resale Purchasing Agent Name Role Phone Unavailable Primary Care Provider Unavailabl e Allergies Active Allergy Reactions Criticality Noted Date Comments Erythromycin Base 05/15/2022 Latex 05/15/2022 Penicillins 05/15/2022 Medications nitroglycerin (Nitrostat) 0.[address] 1 TABLET UNDER THE TONGUE FOR CHEST PAIN - MAY REPEAT EVERY... (REFER TO PRESCRIPTION NOTES). 2 Active pantoprazole (ProtoNix) 40 mg EC tablet Take 40 mg by mouth in the morning. 2 Active Social History Tobacco Use Types Packs/Day Years Used Date Smoking Tobacco: Former Cigarettes Smokeless Tobacco: Never Tobacco Cessation:Counseling Given: Not Answered Alcohol Use Standard Drinks/Week Comments Never 0 (1 standard drink = 0.6 oz pur e alcohol) Humiliation, Afraid, Rape, and Kick questionnair e Answer Date Recorded Within the last year, have y ou been afraid of your partner or ex-partner? No 05/15/2022 Within the last year, have y ou been humiliated or emotionally abused in other ways by your partner or ex-partner? No Within the last year, have y ou been kicked, hit, slapped, or otherwise physically hurt by your partner or ex-partner? No 05/15/2022 Within the last year, have y ou been raped or forced to have any kind of sexual activity by your partner or ex-partner? No 05/15/2022 Social Connection and Isolat ion Panel [NHANES] Answer Date Recorded In a typical week, how many times do you talk on the phone with family, friends, or neighbors? Twice a week 05/15/2022 How often do you get togethe r with friends or relatives? Once a week 05/15/2022 How often do you attend chur or latter day services? More than 4 times per year 05/15/2022 Do you belong to any clubs o r organizations such as orthodoxy groups, unions, fraternal or athletic groups, or school groups? No 05/15/2022 How often do you attend meet ings of the clubs or organizations you belong to? Never 05/15/2022 Are you , , di vorced, , never , or living with a partner? 05/15/2022 AUDIT-C Answer Date Recorded Q1: How often do you have a drink containing alcohol? Never 05/15/2022 Q2: How many drinks containi ng alcohol do you have on a typical day when you are drinking? Patient does not drink Q3: How often do you have si x or more drinks on one occasion? Never 05/15/2022 Overall Financial Resource Strain (CARDIA) Answe r Date Recorded How hard is it for you to pa y for the very basics like food, housing, medical care, and heating? Not hard at all 05/15/2022 PHQ-2 Answer Date Recorded Patient Health Questionnaire-2 Score 0 05/15/2022 [facility] - Occupational Stress Questionnaire Answer Date Recorded Do you feel stress - tense, restless, nervous, or anxious, or unable to sleep at night because your mind is troubled all the time - these days? Not at all 05/15/2022 Exercise Vital Sign Answer Date Recorde d On average, how many days pe r week do you engage in moderate to strenuous exercise (like a brisk walk)? 2 days 05/15/2022 On average, how many minutes do you engage in exercise at this level? 60 min 05/15/2022 Hunger Vital Sign Answer Date Recorded Within the past 12 months, y ou worried that your food would run out before you got the money to buy more. Never true 05/15/20 22 Within the past 12 months, t he food you bought just didn't last and you didn't have money to get more. Never true 05/15/2022 PRAPARE - Transportation Answer Date Re corded In the past 12 months, has l ack of transportation kept you from medical appointments or from getting medications? No 06/2021 In the past 12 months, has l ack of transportation kept you from meetings, work, or from getting things needed for daily living? No 05/15/2022 Housing Stability Vital Sign Answer Ky e Recorded In the last 12 months, was t here a time when you were not able to pay the mortgage or rent on time? No 05/15/2022 In the last 12 months, how many places have you lived? 1 05/15/2022 In the last 12 months, was t here a time when you did not have a steady place to sleep or slept in a longterm (including now)? No 05/15/2022 IN Safety & Environment Answer Date Rec orded Fear of Current or Ex-Partner Not on file Emotionally Abused Not on file 08/06/2023 Physically Abused Not on file 08/06/2023 Sexually Abused Not on file 08/06/2023 Physically or Sexually Abused Not on file Comments Unknown Sex and Gender Information Value Date Recorded Sex Assigned at Not on file Legal Sex Female 12:34 AM EDT Gender Identity Not on file Sexual Orientation Not on file Last Filed Vital Signs Vital Sign Reading Time Taken Comments Blood Pressure 141/59 09/17/2020 1:01 PM EDT Pulse - - Temperature - - Respiratory Rate 16 09/17/2020 12:56 PM EDT Oxygen Saturation 97% 09/17/2020 1:01 PM EDT Inhaled Oxygen Concentration - - Weight 75.8 kg (167 lb) 05/15/2022 1:34 PM EST Height 162.6 cm (5' 4 ) 05/15/2022 1:34 PM EST Body Mass Index 28.67 05/15/2022 1:34 PM EST Plan of Treatment Not on file Insurance [employer] MEDICARE ADVANTAGE
--- OUTSIDE RECORDS SUMMARY | 2024-12-12 10:48 | XMS_ITS | Encounter Summary ---
Author Organization [facility] Address [address] [place] [address] Care Team Providers Care Microcomputer Support Specialist Name Role Phone Myron Brewster MD Primary Care Provider [phone] Encounter Details Date Type Department Care Team (Late st Contact Info) Description 09/01/2023 Orders Only [facility] [address] [place] [phone] Davin Mosher MD [address] [place] [id number] Social History Tobacco Use Types Packs/Day Years Used Date Smoking Tobacco: Former Cigarettes Q uit: 2002 Smokeless Tobacco: Never Alcohol Use Standard Drinks/Week Comments Not Currently 0 (1 standard drink = 0.6 oz pur e alcohol) Comments Unknown Sex and Gender Information Value Date Recorded Sex Assigned at Not on file Legal Sex Female 1:27 PM EST Gender Identity Not on file Sexual Orientation Not on file documented as of this encounter Plan of Treatment Not on file documented as of this encounter Procedures Procedure Name Priority Date/Time Associated Diagnosis Comments CT SCAN : S/T NECK W CONTRAST Routine 08/15/2023 2:22 PM EST documented in this encounter Results * (ABNORMAL) CT SCAN : S/T NECK W CONTRAST (08/15/2023 2:22 PM EST) Anatomical Region Laterality Modality Radiographic Dee Dee ging Davin Mosher MD IMG XR PROCEDURES Final Result documented in this encounter Visit Diagnoses Not on filedocumented in this encounter Care Teams Microcomputer Support Specialist Relationship Specialty Start Date End Date Myron Brewster MD PCP - General Family Medicine 08/18/23 documented as of this encounter
--- OUTSIDE RECORDS SUMMARY | 2024-12-12 10:48 | XMS_ITS | Encounter Summary ---
Author Organization [facility] Address [address] [place] [address] Care Team Providers Care Lean Process Deployment Consultant Name Role Phone Myron Brewster MD Primary Care Provider [phone] Encounter Details Date Type Department Care Team (Late st Contact Info) Description 01/11/2024 Orders Only [facility] [address] [place] [phone] Wendi Cervantes MD [address] [place] [address] Social History Tobacco Use Types Packs/Day Years [...] Procedure Name Priority Date/Time Associated Diagnosis Comments SCANNED LABS Routine 01/06/2024 7:18 AM EDT documented in this encounter Results * SCANNED LABS (01/06/2024 7:18 AM EDT) Wendi Cervantes MD LAB CHG PERFORMABLES Final Re sult documented in this encounter Visit Diagnoses Not on filedocumented in this encounter Care Teams Lean Process Deployment Consultant Relationship Specialty Start Date End Date Myron Brewster MD PCP - General Family Medicine 08/18/23 documented as of this encounter
--- OUTSIDE RECORDS SUMMARY | 2024-12-12 10:48 | XMS_ITS | Encounter Summary ---
Author Organization [facility] Address [address] [place] [address] Care Team Providers Care Family Life Counselor Name Role Phone Myron Brewster MD Primary Care Provider [phone] Encounter Details Date Type Department Care Team (Late st Contact Info) Description 01/12/2024 Clinisync Result Encounter [facility] External Department Unsolicited Eugenio Cervantes MD [address] [place] [address] Social History Tobacco Use Types Packs/Day Years Used Date Smoking Tobacco: Former Cigarettes Q uit: 2001 Smokeless Tobacco: Never Alcohol Use Standard Drinks/Week [...] Name Priority Date/Time Associated Diagnosis Comments CT SOFT TISSUE NECK W IV CONTRAST 01/12/2024 10:57 AM EDT documented in this encounter Results * CT soft tissue neck w IV contrast (01/12/2024 10:57 AM EDT) Anatomical Region Laterality Modality Head, Neck Computed Tomogra phy 01/12/2024 10:5 7 AM EDT Narrative 01/12/2024 11:00 AM EDT The [address] [address] [address] Scan Report Signed Patient: MERCEDES DUMONT MR#: [id number] : 1955 Acct:[id number] Age/Sex: 68 / F ADM Date: 01/11/24 Loc: CT Attending Dr: Eugenio Cervantes M.D. Ordering Physician: Eugenio Cervantes M.D. Date of Service: 01/11/24 Procedure(s): CT soft tissue neck w con Accession Number(s): [id number] cc: Myron Brewster M.D. [place] [address] Patient Name: MERCEDSE DUMONT MRN: [facility]:[id number] date: 1955 Sex: F Assigned Patient Location: CT Current Patient Location: Accession/Order Number: [id number] Exam Date: 01/11/2024 13:24 Report Date: 01/12/2024 10:57 At the request of: EUGENIO CERVANTES Procedure: CT soft tissue neck w con CT soft tissue neck w con, 01/11/2024 1:24 PM EDT INDICATION: sialoadenitis (K11.20) COMPARISON: Prior CT of the neck dated 08/15/2023 TECHNIQUE: CT imaging of the neck were acquired with contrast. Supplemental 2D reformatted images were generated and reviewed as needed. Dose reduction techniques were achieved by using automated exposure control and/or adjustment of mA and/or kV according to patient size and/or use of iterative reconstruction technique. FINDINGS: The sensitivity of study has been decreased due to streak artifacts from dental fillings. No abnormality of the base of skull is noted. The nasopharynx, oropharynx, hypopharynx and oral cavity are unremarkable. There is mild enlargement of the left submandibular gland with adjacent fatty stranding suggesting of the mild sialoadenitis. No sialolithiasis is noted. The parotids, right submandibular gland are unremarkable. The larynx is unremarkable. No abnormality of paraglottic fat is noted. There is no lymph node enlargement by size criteria. No retropharyngeal lymph node is noted. The thyroid gland is homogeneous. The visualized portions of lungs are unremarkable. There is no suspicious osteolytic or osteoblastic lesion. There are multilevel degenerative changes of cervical spine. CT/CT soft tissue neck w con IMPRESSION: Mild left submandibular sialoadenitis. No evidence of sialolithiasis. Electronically authenticated by: EPI KING Date: 01/12/2024 10:57 Dictated By: Epi King M.D. Signed By: 01/12/24 1100 DD/ 1057 TD/TT: Tool And Die Machinist: Procedure Note Radiology, Radiologist, MD - 01/12/[address] [place] [id number] Scan Report Signed Patient: MERCEDES DUMONT KMR#: [id number] : 1955cct:[id number] Age/Sex: 68 / FADM Date: 01/11/24 Loc: CT Attending Dr: Eugenio Cervantes M.D. Ordering Physician: Eugenio Cervantes M.D. Date of Service: 01/11/24 Procedure(s): CT soft tissue neck w con Accession Number(s): [id number] cc: Myron Brewster M.D. The [place] [id number] Patient Name: MERCEDES DUMONT MRN: [id number] date: 1955 Sex: F Assigned Patient Location: CT Current Patient Location: Accession/Order Number: [id number] Exam Date: 01/11/2024 13:24 Report Date: 01/12/2024 10:57 At the request of: EUGENIO CERVANTES Procedure: CT soft tissue neck w con CT soft tissue neck w con, 01/11/2024 1:24 PM EDT INDICATION: sialoadenitis (K11.20) COMPARISON: Prior CT of the neck dated 08/15/2023 TECHNIQUE: CT imaging of the neck were acquired with contrast.Supplemental 2D reformatted images were generated and reviewed as needed. Dose reduction techniques were achieved by using automated exposurecontrol and/or adjustment of mA and/or kV according to patient size and/or use of iterative reconstruction technique. FINDINGS: The sensitivity of study has been decreased due to streak artifacts from dental fillings. No abnormality of the base of skull is noted. The nasopharynx, oropharynx, hypopharynx and oral cavity are unremarkable. There is mild enlargement of the left submandibular gland with adjacentfatty stranding suggesting of the mild sialoadenitis. No sialolithiasis isnoted. The parotids, right submandibular gland are unremarkable. The larynx is unremarkable. No abnormality of paraglottic fat is noted. There is no lymph node enlargement by size criteria. No retropharyngeallymph node is noted. The thyroid gland is homogeneous. The visualized portions of lungs are unremarkable. There is no suspicious osteolytic or osteoblastic lesion. There aremultilevel degenerative changes of cervical spine. CT/CT soft tissue neck w con IMPRESSION: Mild left submandibular sialoadenitis. No evidence of sialolithiasis. Electronically authenticated by: EPI KING Date: 01/12/2024 10:57 Dictated By: Epi King M.D. Signed By:01/12/24 1100 DD/ 1057 TD/TT: Tool And Die Machinist: us Eugenio Cervantes MD IMG CT PROCEDURES Final Resul t documented in this encounter Visit Diagnoses Not on filedocumented in this encounter Care Teams Family Life Counselor Relationship Specialty Start Date End Date Myron Brewster MD PCP - General Family Medicine 08/18/23 documented as of this encounter
--- OUTSIDE RECORDS SUMMARY | 2024-12-12 10:50 | XMS_ITS | Encounter Summary ---
Author Organization [facility] Address [id number] [address] [place] [address] Care Team Providers Care Shackler Name Role Phone Unavailable Primary Care Provider Unavailabl e Encounter Details Date Type Department Care Team (Late st Contact Info) Description 09/12/2024 Orders Only [facility] [address] [place] [address] Leonor Guerrero CMA Aftercare following left hip joint replacement surgery (Primary Dx) Social History Tobacco Use Types Packs/Day Years Used Date Smoking Tobacco: Never Assessed Comments Unknown Sex and Gender Information Value Date Recorded Sex Assigned at Female 08/11/2024 3:20 PM EST Legal Sex Female 3:18 PM EST Gender Identity Female 08/11/2024 3:20 PM EST Sexual Orientation Straight 08/11/2024 3: 20 PM EST documented as of this encounter Plan of Treatment Not on file documented as of this encounter Results * X-ray hip left 2-3 views [...] Jasiel Price MD on 09/20/2024 3:18 PM us Brian James MD IMG DIAGNOSTIC IMAGING ORDER NENO Final Result documented in this encounter Visit Diagnoses Diagnosis Aftercare following left hip joint replacement surgery- Primary Aftercare following left hip joint replacement surgery documented in this encounter
--- OUTSIDE RECORDS SUMMARY | 2024-12-12 10:50 | XMS_ITS | Encounter Summary ---
Author Organization [facility] Address [address] [place] [address] Care Team Providers Care Collar Fuser Name Role Phone Myron Brewster MD Primary Care Provider [phone] Encounter Details Date Type Department Care Team (Late st Contact Info) Description 08/29/2024 Orders Only [facility] [address] [place] [id number] Gordy Matthew MD [address] [place] [id number] Social History Tobacco Use Types Packs/Day Years Used Date Smoking Tobacco: Former Cigarettes 1 25 Q uit: 2001 Smokeless Tobacco: Never Alcohol [...] Date/Time Associated Diagnosis Comments SCANNED LABS Routine 03/09/2024 2:38 PM EDT documented in this encounter Results * SCANNED LABS (03/09/2024 2:38 PM EDT) us Gordy Matthew MD LAB CHG PERFORMABLES Final R esult documented in this encounter Visit Diagnoses Not on filedocumented in this encounter Care Teams Collar Fuser Relationship Specialty Start Date End Date Myron Brewster MD PCP - General Family Medicine 08/18/23 documented as of this encounter
--- OUTSIDE RECORDS SUMMARY | 2024-12-12 10:50 | XMS_ITS | Clinical Summary ---
Author Organization [facility] Address [address] [address] Care Team Providers Care Nail Setter Name Role Phone Unavailable Primary Care Provider [...] by mouth in the morning. 2 Active Family History Medical History Relation Name Comments No Known Problems Father Arthritis Mother Diabetes Mother Heart disease Mother Relation Name Status Comments Father Mother Social History Tobacco Use Types Packs/Day Years [...] How often do you attend chur or sikhism services? More than 4 times per year 05/15/2022 Do you belong to any clubs o r organizations such as scientology groups, unions, fraternal or athletic groups, or [...] Recorded Patient Health Questionnaire-2 Score 0 05/15/2022 [facility] - Occupational Stress Questionnaire Answer Date [...] place to sleep or slept in a mcc (including now)? No 05/15/2022 [place] Safety & Environment Answer Date Rec orded [...] 05/15/2022 1:34 PM EST Plan of Treatment Health Maintenance Due Date Last Done Comments CT Colonography 1955 Colonoscopy 1955 Colorectal Cancer Screening 1955 FIT-DNA 1955 FIT 1955 FOBT 1955 Medicare Annual Wellness (AWV) 1955 Sigmoidoscopy 1955 Depression Screening 1968 Mammogram 1996 Zoster Vaccines (1 of 2) 2006 03/16/2018, 10/15 Fall Risk Screening 2021 COVID-19 Vaccine ( season) 2024 Influenza Vaccine (Season Ended) 2025 04/11/2021, 05/30/2020, 04/15/2020, Additional history exists Adult Tetanus 09/25/2027 09/24/2017, 11/0 02/2007, 05/06/2004, Additional history exists Pneumococcal Vaccine: 50+ Years Completed 03/28/2022, 09/24/2017, 07/13/2001 HIB Vaccines Aged Out No longer eligi ble based on patient's age to complete this topic HPV Vaccines Aged Out No longer eligi ble based on patient's age to complete this topic IPV Vaccines Aged Out No longer eligi ble based on patient's age to complete this topic Meningococcal B Vaccine Aged Out No l onger eligible based on patient's age to complete this topic Meningococcal Vaccine Aged Out No erika damon eligible based on patient's age to complete this topic Rotavirus Vaccines Aged Out No longer eligible based on patient's age to complete this topic Insurance [facility] MEDICARE ADVANTAGE
--- OUTSIDE RECORDS SUMMARY | 2024-12-12 10:50 | XMS_ITS | Clinical Summary ---
Author Organization [facility] Address [address] [place] [address] Care Team Providers Care Monotyper Name Role Phone Myron Brewster MD Primary Care Provider [phone] Allergies Active Allergy Reactions Criticality Noted Date Comments Erythromycin GI intolerance 01/04/2024 Latex 05/15/2022 Other Reaction(s): Not available Penicillins Rash Low 05/15/2022 Medications cholecalciferol (Vitamin D-3) 50 MCG (1999) capsule Take 2,000 Units by mouth 1 (one) time each day at the same time Active pantoprazole (Protonix) 40 MG EC tablet Take 40 mg by mouth 1 (one) time each day at the same time Active Multiple Vitamins-Mineral s (multivitamin with minerals) tablet Take 1 tablet by mouth Daily Active Active Problems Problem Noted Date Diagnosed Date Bradycardia 01/27/2024 GERD (gastroesophageal reflux disease) Screening for malignant neoplasm of colon 2023 Seasonal allergic rhinitis 01/27/2024 BMI 30.0-30.9,adult 01/27/2024 Chronic sialoadenitis 01/27/2024 Osteoarthritis 09/01/2023 Neck swelling 09/01/2023 Sialoadenitis 08/31/2023 Family History Medical History Relation Name Comments Heart failure Father Reyes Fang Stroke Maternal Grandmother Lidia Go Cancer Mother Preethi Nicholas breast Diabetes Mother Preethi Nicholas Heart failure Mother Preethi Nicholas Relation Name Status Comments Father Reyes Fang Maternal Grandmother Lidia Go Mother Preethi Nicholas Social History Tobacco Use Types Packs/Day Years Used Date Smoking Tobacco: Former Cigarettes 1 25 Q uit: 2001 Smokeless Tobacco: Never Tobacco Cessation:Counseling Given: Not [...] Sign Reading Time Taken Comments Blood Pressure 122/68 08/29/2024 1:30 PM EDT Pulse 69 08/29/2024 1:30 PM EDT Temperature - - Respiratory Rate - - Oxygen Saturation - - Inhaled Oxygen Concentration - - Weight 79.4 kg (175 lb) 08/29/2024 1:30 PM EDT Height 162.6 cm (5' 4 ) 08/29/2024 1:30 PM EDT Body Mass Index 30.04 08/29/2024 1:30 PM EDT Plan of Treatment Health Maintenance Due Date Last Done Comments CT Colonography 1955 Colonoscopy 1955 Colorectal Cancer Screening 1955 FIT-DNA 1955 FIT 1955 FOBT 1955 Sigmoidoscopy 1955 Mammogram 1996 Influenza Vaccine (Season Ended) 2025 05/04/2023, 04/03/2022, 04/11/2021, Additional history exists Pneumococcal Vaccine: 65+ Years Completed 03/28/2022, 09/22/2021, 09/24/2017, Additional history exists Insurance MEDICARE ADVANTAGE Care Teams Monotyper Relationship Specialty Start Date End Date Myron Brewster MD PCP - General Family Medicine 08/18/23
== END 2024-12-12 10:44 | disposition home or self-care (01) ==
LOC: RAD 10:45
PROVIDERS: PCP Family Medicine; Visit Provider Family Medicine
DX: E28.39 Other primary ovarian failure (principal); M85.88 Other specified disorders of bone density and structure, other site
CPT/HCPCS: 77080

== ENCOUNTER 2025-01-09 15:34 | Outpatient (OUT) | payer MEDICARE, SELFPAY ==
[2025-01-09 16:18] LABS: Glucose Urine UA NEGATIVE (NEGATIVE)
[2025-01-09 16:27] LABS: Cast Seen? NONE SEEN #/LPF (NONE SEEN); Crystals Seen? None Seen #/HPF (None Seen)
--- OUTSIDE RECORDS SUMMARY | 2025-01-09 18:16 | XMS_ITS | CCD ---
Author Organization [facility] Care Team Providers Care Community Educator Name Role Phone Olivia Dean Unavailable TIMMY TINSLEY Referring Unavailable TIMMY TINSLEY Attending Unavailable Aretha Brewster Primary Care Physician [phone] JESSICA PACHECO Attending Unavailable YAZ ., JESSICA Admitting Unavailable ZIEBAYDEN, DR ULISES Pineda Consulting Unavailable HOY ., DR CARIAS Primary Care Unavailable HAIDER .MAGNO Consulting Unavailable NILL ., DR POE Admitting Unavailable HOY ., DR CARIAS Primary Care Unavailable NILL ., DR POE Consulting Unavailable NILL ., DR POE Attending Unavailable EMELINA NAKIA Consulting Unavailable LILIAN II, AVELINO Consulting [...] Unavailable HOY ., DR CARIAS Consulting Unavailable ERICKSONY ., DR CARIAS Attending Unavailable ELVER, DR STEPHANIE Olivera Consulting Unavailable HOY ., DR CARIAS Primary Care Unavailable HOY ., DR CARIAS Admitting Unavailable HOY ., DR CARIAS Consulting Unavailable HOY ., DR CARIAS Attending Unavailable ELVER, DR STEPHANIE Olivera Consulting Unavailable Lui GAMINO Attending Unavailable Lui GAMINO Attending Unavailable Sarah Sargent Unavailable MD Aretha Brewster Primary Care Provider [phone] MD Gordy Matthew Attending Provider Gordy Matthew Admitting Unavailable Gordy Matthew Attending Unavailable Aretha Brewster Primary Care Unavailable EUGENIO GARCIA Attending Unavailable EUGENIO GARCIA H Attending Unavailable EUGENIO GARCIA H Attending Unavailable EUGENIO GARCIA H Attending Unavailable ARETHA BREWSTER Referring Unavailable Unavailable Primary Care Provider UnavailBRIAN Vázquez Referring Unavailable BRIAN JAMES Attending Unavailable Allergies Allergy Classification Reported Allergen(s) Allergy Type Date of Onset Reaction(s) Facility (6 sources) Erythromycin; Translations: [erythromycin] Drug Allergy 4 GI Disturbance [facility] [place] (8 sources) Latex; Translations: [LATEX] Propensity to adverse reactions 2 Inflammatory dermatosis (disorder), Dermatitis, Hives [facility] Repository (3 sources) Penicillin G Drug Allergy 3 anaphylaxis [facility] (3 sources) Penicillins; Translations: [PENICILLINS] Propensity to adverse reactions to drug (disorder) 2 Anaphylaxis (disorder) [facility] Repository (4 sources) ERYTHROMYCIN BASE; Translations: [ERYTHROMYCIN BASE] Propensity to adverse reactions to drug (disorder) [address] [facility] Repository (1 source) natural latex rubber Drug allergy (disorder) 3 [facility] Repository (1 source) Penicillin Drug Allergy [facility] (1 source) Latex Drug allergy (disorder) 3 [facility] Rep[facility] (1 source) Penicillin Drug Allergy 3 [facility] Repository Medications Current Medications Medication Drug [...] 1.5 mg/ml oral solution (1 source) Uncompetitive R-driqkw-C-aspartat e 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, Sigma-1 Agonist Start: 06-14-2023 take 10 mL by mouth every eight hours Pierz DM 7.5-7.5 MG/5ML 10 mL Orally every 8 hours for 5 days May, Active Multi Vitamins oral tablet (1 source) Start: 09-10-2022 take 1 tablet by mouth once daily Multi Vitamins oral tablet 1 tab(s), Oral, Daily, Refill(s) 0 Start Date: 09/10/22 Status: Ordered multivitamin with minerals tablet (1 source) take 1 tablet by mouth in the morning multivitamin with minerals tablet Take 1 tablet by mouth in the morning. Active nitroglycerin 0.4 mg sublingual tablet (1 source) Nitrate Vasodilator Start: 08-29-2022 nitroglycerin 0.4 mg sublingual Tab 0.4 mg = 1 tab(s), SubLingual, q5min, PRN for chest pain, Refills(s) 0 Start Date: 08/29/22 Status: Ordered pantoprazole 40 mg delayed release oral tablet (3 sources) Proton Pump Inhibitor Start: 08-29-2022 take [...] for 7 days October, Active Vitamin D3 1999 intl units oral Tab (1 source) Start: [...] Osteoarthritis 08-29-2022 Chronic Other aftercare (1 source) Patient encounter status; Translations: [Aftercare following joint replacement surgery] 09-20-2024 Chronic Other aftercare (1 source) Aftercare following joint replacement surgery; Translations: [Aftercare following joint replacement surgery] Onset: 09-20-2024 Chronic Other aftercare (1 source) senior living (current) use of aspirin; Translations: [GEOLOGICAL SPECIALIST CURRENT USE OF ASPIRIN] Onset: 10-02-2022 Episodic Other connective tissue disease (3 sources) Presence of left artificial hip joint; [...] Unclassified (1 source) Patient encounter status 09-10-2022 Unclassified (1 source) New Patient Onset: 09-20-2024 Viral infection (1 source) Other specified viral [...] 03-24-2022 Episodic Other aftercare (1 source) 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; Translations: [OT GEOLOGICAL SPECIALIST CURRENT DRUG THERAPY] Onset: 01-14-2022 Episodic Other bone disease and musculoskeletal deformities (1 source) Other specified disorders of bone density and structure, unspecified site; Translations: [OT D/O BONE DEN STRUCT UNS SITE] Onset: 05-01-2022 Episodic Screening and history of mental health and substance abuse codes (1 source) Personal history of nicotine dependence; Translations: [PERSONAL HISTORY OF NICOTINE DEPEND] Onset: 03-26-2022 Episodic Superficial injury; contusion (1 source) Insect bite (nonvenomous), left lower leg, initial encounter Onset: 11-12-2021 Resolved: 11-12-2021 Episodic Results Test Name Value Interpretation Reference Range Facility XR HIP LT 2-3 VIEWS W OR WO PELVISon 09-20-2024 XR HIP LT 2-3 VIEWS W OR WO PELVIS XR HIP LT 2-3 VIEWS W OR WO PELVIS CLINICAL INFORMATION: Aftercare following left hip joint replacement surgery TECHNIQUE: XR HIP LT 2-3 VIEWS W OR WO PELVIS 3 views left hip are obtained. Patient status post left hip arthroplasty. Hardware appears intact. Alignment anatomic. IMPRESSION: Satisfactory postoperative hip. Finalized by Jasiel Price MD on 09/20/2024 3:[address] [facility] BIGG Antinuclear Antibodieson 03-09-2024 Antinuclear Abs, IFA Negative Normal . [facility] Comment on above: Result Comment: Nega tive <1:80 Borderline 1:80 Positive >1:80 ICAP nomenclature: [id number] For more information about Hep-2 cell patterns use ANApatterns.org, the official website for the International Consensus on Antinuclear Antibody (BIGG) Patterns (ICAP). Performed at: [facility] [id number] Affiliate Marketing Manager: Jasiel Key PhD, Phone: [phone] Performed By: #### C RP, CK, CBC, CMP, T4F, ESR, TSH3, ADDONUAPLUS #### [address] #### SPE, KARUNA,URINE, BIGG, HBCAB, ALDOLASE, RPR W RFX, HCV RX PCR, UPE RAND, HBSAB, QUANT TB, CHROMATIN, HBSAG #### [facility] , Alanine aminotransferase [En zymatic activity/volume] in Serum or PlasmaOrdered By: Gordy Matthew on 03-09-2024 ALT [Catalytic activity/Vol] 15 U/L Normal [facility] Comment on above: Performed By: #### C RP, CK, CBC, CMP, T4F, ESR, TSH3, ADDONUAPLUS #### [place] [address] [place] #### SPE, KARUNA,URINE, BIGG, HBCAB, ALDOLASE, RPR W RFX, HCV RX PCR, UPE RAND, HBSAB, QUANT TB, CHROMATIN, HBSAG #### [facility] , Albumin [Mass/volume] in Ser um or Plasma by Bromocresol green (BCG) dye binding methoOrdered By: Gordy Matthew on 03-09-2024 Albumin BCG dye [Mass/Vol] 4.2 g/dL 3.5-5.7 [facility] Aldolaseon 03-09-2024 Aldolase 3.6 U/L Normal 3.3-10.3 [facility] Comment on above: Result Comment: Perf ormed at: CB - [facility] [address] [id number] Affiliate Marketing Manager: Jasiel Key PhD, Phone: [phone] PERFORMED BY: [place] [address] PATHOLOGIST TRANSFER AND PUMPHOUSE OPERATOR CHIEF JOCELYN EDGE M.D. Performed By: #### C RP, CK, CBC, CMP, T4F, ESR, TSH3, ADDONUAPLUS #### [address] #### SPE, KARUNA,URINE, BIGG, HBCAB, ALDOLASE, RPR W RFX, HCV RX PCR, UPE RAND, HBSAB, QUANT TB, CHROMATIN, HBSAG #### [facility] , Alkaline phosphatase [Enzyma tic activity/volume] in Serum or PlasmaOrdered By: Gordy Farooqrow on 03-09-2024 ALP [Catalytic activity/Vol] 77 U/L Normal 34-104 [facility] Comment on above: Performed By: #### C RP, CK, CBC, CMP, T4F, ESR, TSH3, ADDONUAPLUS #### [facility] [address] [place] [address] [place] #### SPE, KARUNA,URINE, BIGG, HBCAB, ALDOLASE, RPR W RFX, HCV RX PCR, UPE RAND, HBSAB, QUANT TB, CHROMATIN, HBSAG #### [facility] , Aspartate aminotransferase [ Enzymatic activity/volume] in Serum or PlasmaOrdered By: Gordy Matthew on 03-09-2024 AST [Catalytic activity/Vol] 13 U/L Normal 13-39 [facility] Comment on above: Performed By: #### C RP, CK, CBC, CMP, T4F, ESR, TSH3, ADDONUAPLUS #### [place] [address] [place] #### SPE, KARUNA,URINE, BIGG, HBCAB, ALDOLASE, RPR W RFX, HCV RX PCR, UPE RAND, HBSAB, QUANT TB, CHROMATIN, HBSAG #### [facility] , Automated basophil %Ordered By: Gordy Matthew on 03-09-2024 Basophils/100 WBC (Bld) 0.5 % Normal . [facility] Comment on above: Performed By: #### C RP, CK, CBC, CMP, T4F, ESR, TSH3, ADDONUAPLUS #### [place] [address] [place] #### SPE, KARUNA,URINE, BIGG, HBCAB, ALDOLASE, RPR W RFX, HCV RX PCR, UPE RAND, HBSAB, QUANT TB, CHROMATIN, HBSAG #### [facility] , Automated basophil countOrde red By: Gordy Matthew on 03-09-2024 Basophils (Bld) [#/Vol] 0.1 10*3/uL Normal 0.0-0.2 [facility] Comment on above: Performed By: #### C RP, CK, CBC, CMP, T4F, ESR, TSH3, ADDONUAPLUS #### [place] [address] [place] #### SPE, KARUNA,URINE, BIGG, HBCAB, ALDOLASE, RPR W RFX, HCV RX PCR, UPE RAND, HBSAB, QUANT TB, CHROMATIN, HBSAG #### [facility] , Automated blood monocyte cou ntOrdered By: Gordy Matthew on 03-09-2024 Monocytes (Bld) [#/Vol] 1.0 10*3/uL High 0.0-0.8 [facility] Comment on above: Performed By: #### C RP, CK, CBC, CMP, T4F, ESR, TSH3, ADDONUAPLUS #### [place] [address] [place] #### SPE, KARUNA,URINE, BIGG, HBCAB, ALDOLASE, RPR W RFX, HCV RX PCR, UPE RAND, HBSAB, QUANT TB, CHROMATIN, HBSAG #### [facility] , Automated eosinophil %Ordere d By: Gordy Matthew on 03-09-2024 Eosinophils/100 WBC (Bld) 0.4 % Normal . [facility] Comment on above: Performed By: #### C RP, CK, CBC, CMP, T4F, ESR, TSH3, ADDONUAPLUS #### [facility] [address] [place] [address] #### SPE, KARUNA,URINE, BIGG, HBCAB, ALDOLASE, RPR W RFX, HCV RX PCR, UPE RAND, HBSAB, QUANT TB, CHROMATIN, HBSAG #### [facility] , Automated eosinophil countOr dered By: Gordy Matthew on 03-09-2024 Eosinophils (Bld) [#/Vol] 0.0 10*3/uL Normal 0.0-0.45 [facility] Comment on above: Performed By: #### C RP, CK, CBC, CMP, T4F, ESR, TSH3, ADDONUAPLUS #### [facility] [address] [place] [address] [place] #### SPE, KARUNA,URINE, BIGG, HBCAB, ALDOLASE, RPR W RFX, HCV RX PCR, UPE RAND, HBSAB, QUANT TB, CHROMATIN, HBSAG #### [facility] , Automated monocyte %Ordered By: Gordy Matthew on 03-09-2024 Monocytes/100 WBC (Bld) 8.5 % Normal . [facility] Comment on above: Performed By: #### C RP, CK, CBC, CMP, T4F, ESR, TSH3, ADDONUAPLUS #### [facility] [address] [place] [address] [place] #### SPE, KARUNA,URINE, BIGG, HBCAB, ALDOLASE, RPR W RFX, HCV RX PCR, UPE RAND, HBSAB, QUANT TB, CHROMATIN, HBSAG #### [facility] , Automated neutrophil %Ordere d By: Gordy Matthew on 03-09-2024 Neutrophils/100 WBC (Bld) 66.2 % Normal . [facility] Comment on above: Performed By: #### C RP, CK, CBC, CMP, T4F, ESR, TSH3, ADDONUAPLUS #### [facility] [address] [place] [address] [place] #### SPE, KARUNA,URINE, BIGG, HBCAB, ALDOLASE, RPR W RFX, HCV RX PCR, UPE RAND, HBSAB, QUANT TB, CHROMATIN, HBSAG #### [facility] , Bacteria [Presence] in Urine by AutomatedOrdered By: Gordy Matthew on 03-09-2024 Bacteria Auto Ql (U) Rare [HPF] None Seen [facility] Bilirubin Test strip Ql (U)O rdered By: Gordy Matthew on 03-09-2024 Bilirubin Ql (U) Negative Negative [facility] Bilirubin.total [Mass/volume ] in Serum or PlasmaOrdered By: Gordy Matthew on 03-09-2024 Bilirubin [Mass/Vol] 0.4 mg/dL Normal 0.3-1.0 [facility] Comment on above: Performed By: #### C RP, CK, CBC, CMP, T4F, ESR, TSH3, ADDONUAPLUS #### [facility] [address] [place] [address] [place] #### SPE, KARUNA,URINE, BIGG, HBCAB, ALDOLASE, RPR W RFX, HCV RX PCR, UPE RAND, HBSAB, QUANT TB, CHROMATIN, HBSAG #### [facility] , C reactive protein [Mass/vol ume] in Serum or PlasmaOrdered By: Gordy Farooqrow on 03-09-2024 CRP [Mass/Vol] < 0.5 mg/dL 0.0-0.5 [facility] C-Reactive Proteinon 024 CRP [Mass/Vol] mg/L Normal 0.0-0.5 [facility] Comment on above: Performed By: #### C RP, CK, CBC, CMP, T4F, ESR, TSH3, ADDONUAPLUS #### [facility] [address] [place] [address] #### SPE, KARUNA,URINE, BIGG, HBCAB, ALDOLASE, RPR W RFX, HCV RX PCR, UPE RAND, HBSAB, QUANT TB, CHROMATIN, HBSAG #### [facility] , Calcium [Mass/volume] in Ser um or PlasmaOrdered By: Gordy Matthew on 03-09-2024 Calcium [Mass/Vol] 10.6 mg/dL High 8.6-10.3 [facility] Comment on above: Performed By: #### C RP, CK, CBC, CMP, T4F, ESR, TSH3, ADDONUAPLUS #### [facility] [address] [place] [address] #### SPE, KARUNA,URINE, BIGG, HBCAB, ALDOLASE, RPR W RFX, HCV RX PCR, UPE RAND, HBSAB, QUANT TB, CHROMATIN, HBSAG #### [facility] , Carbon dioxide, total [Moles /volume] in Serum or PlasmaOrdered By: Gordy Matthew on 03-09-2024 CO2 [Moles/Vol] 30.4 mmol/L Normal 21.0-31.0 [facility] Comment on above: Performed By: #### C RP, CK, CBC, CMP, T4F, ESR, TSH3, ADDONUAPLUS #### [facility] [address] [place] [address] [place] #### SPE, KARUNA,URINE, BIGG, HBCAB, ALDOLASE, RPR W RFX, HCV RX PCR, UPE RAND, HBSAB, QUANT TB, CHROMATIN, HBSAG #### [facility] , Chloride [Moles/volume] in S billy or PlasmaOrdered By: Gordy Matthew on 03-09-2024 Chloride [Moles/Vol] 103 mmol/L Normal 98-107 [facility] Comment on above: Performed By: #### C RP, CK, CBC, CMP, T4F, ESR, TSH3, ADDONUAPLUS #### [address] #### SPE, KARUNA,URINE, BIGG, HBCAB, ALDOLASE, RPR W RFX, HCV RX PCR, UPE RAND, HBSAB, QUANT TB, CHROMATIN, HBSAG #### [facility] , Chromatin Antibodyon 024 Chromatin Antibody <0.2 Normal 0.0-0.9 [facility] Comment on above: Result Comment: Perf ormed at: - [facility] [address] [id number] Affiliate Marketing Manager: Jasiel Key PhD, Phone: [phone] Performed By: #### C RP, CK, CBC, CMP, T4F, ESR, TSH3, ADDONUAPLUS #### [address] #### SPE, KARUNA,URINE, BIGG, HBCAB, ALDOLASE, RPR W RFX, HCV RX PCR, UPE RAND, HBSAB, QUANT TB, CHROMATIN, HBSAG #### [facility] , Color of Urine by AutoOrdere d By: Gordy Matthew on 03-09-2024 Color (U) Light-yellow Normal Yellow [facility] Comment on above: Order Comment: Name Collection Type:: Clean-Voided Midstream Performed By: #### C RP, CK, CBC, CMP, T4F, ESR, TSH3, ADDONUAPLUS #### [place] [address] [place] #### SPE, KARUNA,URINE, BIGG, HBCAB, ALDOLASE, RPR W RFX, HCV RX PCR, UPE RAND, HBSAB, QUANT TB, CHROMATIN, HBSAG #### [facility] , Complete Blood Count Auto Di ffon 03-09-2024 Mean Corpuscular HGB Conc 33.0 g/dL Normal 32.0-35.0 [facility] Comment on above: Performed By: #### C RP, CK, CBC, CMP, T4F, ESR, TSH3, ADDONUAPLUS #### [address] #### SPE, KARUNA,URINE, BIGG, HBCAB, ALDOLASE, RPR W RFX, HCV RX PCR, UPE RAND, HBSAB, QUANT TB, CHROMATIN, HBSAG #### [facility] , NRBC% 0.1 /100{WBC} Normal 0-0.5 [facility] Comment on above: Performed By: #### C RP, CK, CBC, CMP, T4F, ESR, TSH3, ADDONUAPLUS #### [address] #### SPE, KARUNA,URINE, BIGG, HBCAB, ALDOLASE, RPR W RFX, HCV RX PCR, UPE RAND, HBSAB, QUANT TB, CHROMATIN, HBSAG #### [facility] , Comprehensive Metabolic Pane erika 03-09-2024 Albumin [Mass/Vol] 4.2 g/dL Normal 3.5-5.7 [facility] Comment on above: Performed By: #### C RP, CK, CBC, CMP, T4F, ESR, TSH3, ADDONUAPLUS #### [address] #### SPE, KARUNA,URINE, BIGG, HBCAB, ALDOLASE, RPR W RFX, HCV RX PCR, UPE RAND, HBSAB, QUANT TB, CHROMATIN, HBSAG #### [facility] , GFR/1.73 sq M.predicted MDRD (S/P/Bld) [Vol rate/Area] mL/min/{1.73_m2} Normal [facility] Comment on above: Performed By: #### C RP, CK, CBC, CMP, T4F, ESR, TSH3, ADDONUAPLUS #### [place] [address] [place] #### SPE, KARUNA,URINE, BIGG, HBCAB, ALDOLASE, RPR W RFX, HCV RX PCR, UPE RAND, HBSAB, QUANT TB, CHROMATIN, HBSAG #### [facility] , Creatine kinase [Enzymatic a ctivity/volume] in Serum or PlasmaOrdered By: Gordy Matthew on 03-09-2024 CK [Catalytic activity/Vol] 25 U/L Low 30-223 [facility] Comment on above: Result Comment: PERF ORMED BY: [place] [address] PATHOLOGIST TRANSFER AND PUMPHOUSE OPERATOR CHIEF JOCELYN EDGE M.D. Performed By: #### C RP, CK, CBC, CMP, T4F, ESR, TSH3, ADDONUAPLUS #### [address] #### SPE, KARUNA,URINE, BIGG, HBCAB, ALDOLASE, RPR W RFX, HCV RX PCR, UPE RAND, HBSAB, QUANT TB, CHROMATIN, HBSAG #### [facility] , Creatinine [Mass/volume] in Serum or PlasmaOrdered By: Gordy Matthew on 03-09-2024 Creatinine [Mass/Vol] 0.80 mg/dL Normal 0.60-1.[address] [facility] Comment on above: Performed By: #### C RP, CK, CBC, CMP, T4F, ESR, TSH3, ADDONUAPLUS #### [facility] [address] [place] [address] [place] #### SPE, KARUNA,URINE, BIGG, HBCAB, ALDOLASE, RPR W RFX, HCV RX PCR, UPE RAND, HBSAB, QUANT TB, CHROMATIN, HBSAG #### [facility] , Dipstick and Microscopicon 0 03-09-2024 Bacteria,Urine Rare Normal None Seen [facility] Comment on above: Order Comment: Name Collection Type:: Clean-Voided Midstream Performed By: #### C RP, CK, CBC, CMP, T4F, ESR, TSH3, ADDONUAPLUS #### [facility] [address] [place] [address] [place] #### SPE, KARUNA,URINE, BIGG, HBCAB, ALDOLASE, RPR W RFX, HCV RX PCR, UPE RAND, HBSAB, QUANT TB, CHROMATIN, HBSAG #### [facility] , Bilirubin,Urine Negative Normal Negative [facility] Comment on above: Order Comment: Name Collection Type:: Clean-Voided Midstream Performed By: #### C RP, CK, CBC, CMP, T4F, ESR, TSH3, ADDONUAPLUS #### [address] #### SPE, KARUNA,URINE, BIGG, HBCAB, ALDOLASE, RPR W RFX, HCV RX PCR, UPE RAND, HBSAB, QUANT TB, CHROMATIN, HBSAG #### [facility] , Glucose Ql (U) Normal Normal Normal [facility] Comment on above: Order Comment: Name Collection Type:: Clean-Voided Midstream Performed By: #### C RP, CK, CBC, CMP, T4F, ESR, TSH3, ADDONUAPLUS #### [address] #### SPE, KARUNA,URINE, BIGG, HBCAB, ALDOLASE, RPR W RFX, HCV RX PCR, UPE RAND, HBSAB, QUANT TB, CHROMATIN, HBSAG #### [facility] , Hyaline Casts,Urine None Normal 0-8 [facility] Comment on above: Order Comment: Name Collection Type:: Clean-Voided Midstream Performed By: #### C RP, CK, CBC, CMP, T4F, ESR, TSH3, ADDONUAPLUS #### [address] #### SPE, KARUNA,URINE, BIGG, HBCAB, ALDOLASE, RPR W RFX, HCV RX PCR, UPE RAND, HBSAB, QUANT TB, CHROMATIN, HBSAG #### [facility] , Mucus,Urine Rare Normal [facility] Comment on above: Order Comment: Name Collection Type:: Clean-Voided Midstream Result Comment: PERF ORMED BY: [place] [address] PATHOLOGIST TRANSFER AND PUMPHOUSE OPERATOR CHIEF JIANLAN SUN M.D. Performed By: #### C RP, CK, CBC, CMP, T4F, ESR, TSH3, ADDONUAPLUS #### [address] #### SPE, KARUNA,URINE, BIGG, HBCAB, ALDOLASE, RPR W RFX, HCV RX PCR, UPE RAND, HBSAB, QUANT TB, CHROMATIN, HBSAG #### [facility] , Nitrite,Urine Negative Normal Negative [facility] Comment on above: Order Comment: Name Collection Type:: Clean-Voided Midstream Performed By: #### C RP, CK, CBC, CMP, T4F, ESR, TSH3, ADDONUAPLUS #### [address] #### SPE, KARUNA,URINE, BIGG, HBCAB, ALDOLASE, RPR W RFX, HCV RX PCR, UPE RAND, HBSAB, QUANT TB, CHROMATIN, HBSAG #### [facility] , Occult Blood,Urine Negative Normal Negative [facility] Comment on above: Order Comment: Name Collection Type:: Clean-Voided Midstream Performed By: #### C RP, CK, CBC, CMP, T4F, ESR, TSH3, ADDONUAPLUS #### [address] #### SPE, KARUNA,URINE, BIGG, HBCAB, ALDOLASE, RPR W RFX, HCV RX PCR, UPE RAND, HBSAB, QUANT TB, CHROMATIN, HBSAG #### [facility] , Protein,Urine Negative Normal Negative [facility] Comment on above: Order Comment: Name Collection Type:: Clean-Voided Midstream Performed By: #### C RP, CK, CBC, CMP, T4F, ESR, TSH3, ADDONUAPLUS #### [address] #### SPE, KARUNA,URINE, BIGG, HBCAB, ALDOLASE, RPR W RFX, HCV RX PCR, UPE RAND, HBSAB, QUANT TB, CHROMATIN, HBSAG #### [facility] , RBC,Urine 1-2 Normal 0-4 [facility] Comment on above: Order Comment: Name Collection Type:: Clean-Voided Midstream Performed By: #### C RP, CK, CBC, CMP, T4F, ESR, TSH3, ADDONUAPLUS #### [address] #### SPE, KARUNA,URINE, BIGG, HBCAB, ALDOLASE, RPR W RFX, HCV RX PCR, UPE RAND, HBSAB, QUANT TB, CHROMATIN, HBSAG #### [facility] , Specificy [place],Urine 1.013 Normal 1.001-1.030 [facility] Comment on above: Order Comment: Name Collection Type:: Clean-Voided Midstream Performed By: #### C RP, CK, CBC, CMP, T4F, ESR, TSH3, ADDONUAPLUS #### [address] #### SPE, KARUNA,URINE, BIGG, HBCAB, ALDOLASE, RPR W RFX, HCV RX PCR, UPE RAND, HBSAB, QUANT TB, CHROMATIN, HBSAG #### [facility] , Urobilinogen,Urine Normal Normal Normal [facility] Comment on above: Order Comment: Name Collection Type:: Clean-Voided Midstream Performed By: #### C RP, CK, CBC, CMP, T4F, ESR, TSH3, ADDONUAPLUS #### [address] #### SPE, KARUNA,URINE, BIGG, HBCAB, ALDOLASE, RPR W RFX, HCV RX PCR, UPE RAND, HBSAB, QUANT TB, CHROMATIN, HBSAG #### [facility] , WBC,Urine 3-4 Normal 0-4 [facility] Comment on above: Order Comment: Name Collection Type:: Clean-Voided Midstream Performed By: #### C RP, CK, CBC, CMP, T4F, ESR, TSH3, ADDONUAPLUS #### [address] #### SPE, KARUNA,URINE, BIGG, HBCAB, ALDOLASE, RPR W RFX, HCV RX PCR, UPE RAND, HBSAB, QUANT TB, CHROMATIN, HBSAG #### [facility] , Epithelial cells.squamous [# /area] in Urine sediment by Automated countOrdered By: Gordy Matthew on 03-09-2024 Epithelial cells.squamous Auto (Urine sed) [#/Area] N/A [facility] Erythrocyte Sedimentation Ra conchita 03-09-2024 ESR (Bld) [Velocity] 25 mm/h Normal 0-29 [facility] Comment on above: Result Comment: PERF ORMED BY: [place] [address] PATHOLOGIST TRANSFER AND PUMPHOUSE OPERATOR CHIEF JOCELYN EDGE M.D. Performed By: #### C RP, CK, CBC, CMP, T4F, ESR, TSH3, ADDONUAPLUS #### [address] #### SPE, KARUNA,URINE, BIGG, HBCAB, ALDOLASE, RPR W RFX, HCV RX PCR, UPE RAND, HBSAB, QUANT TB, CHROMATIN, HBSAG #### [facility] , Erythrocyte distribution wid th [Ratio] by Automated countOrdered By: Gordy Matthew on 03-09-2024 Erythrocyte distribution width (RBC) [Ratio] 14.1 % Normal 11.9-15.3 [facility] Comment on above: Performed By: #### C RP, CK, CBC, CMP, T4F, ESR, TSH3, ADDONUAPLUS #### [address] #### SPE, KARUNA,URINE, BIGG, HBCAB, ALDOLASE, RPR W RFX, HCV RX PCR, UPE RAND, HBSAB, QUANT TB, CHROMATIN, HBSAG #### [facility] , Erythrocyte sedimentation ra te by Photometric methodOrdered By: Gordy Matthew on 03-09-2024 ESR Photometric method (Bld) [Velocity] 25 mm/hr 0-29 [facility] Erythrocytes [#/area] in Uri ne sediment by Automated countOrdered By: Gordy Matthew on 03-09-2024 RBC Auto (Urine sed) [#/Area] 1-2 [HPF] 0-4 [facility] Erythrocytes [#/volume] in B lood by Automated countOrdered By: Gordy Matthew on 03-09-2024 RBC (Bld) [#/Vol] 4.71 10*6/uL Normal 3.60-5.00 [facility] [facility] Comment on above: Performed By: #### C RP, CK, CBC, CMP, T4F, ESR, TSH3, ADDONUAPLUS #### [facility] [address] #### SPE, KARUNA,URINE, BIGG, HBCAB, ALDOLASE, RPR W RFX, HCV RX PCR, UPE RAND, HBSAB, QUANT TB, CHROMATIN, HBSAG #### [facility] , Glucose [Mass/volume] in Ser um or PlasmaOrdered By: Gordy Farooqrow on 03-09-2024 Glucose [Mass/Vol] 100 mg/dL Normal 70-100 [facility] Comment on above: ADA recommended refe rence rangeRandom Glucose Reference Range is dependent on time and content of last meal. Glucose of more than 200 mg/dL in a nonstressed, ambulatory subject supports the diagnosis of Diabetes Mellitus. Result Comment: [place] om Glucose Reference Range is dependent on time and content of last meal. Glucose of more than 200 mg/dL in a nonstressed, ambulatory subject supports the diagnosis of Diabetes Mellitus. ADA recommended reference range Performed By: #### C RP, CK, CBC, CMP, T4F, ESR, TSH3, ADDONUAPLUS #### [facility] [address] [place] [address] [place] #### SPE, KARUNA,URINE, BIGG, HBCAB, ALDOLASE, RPR W RFX, HCV RX PCR, UPE RAND, HBSAB, QUANT TB, CHROMATIN, HBSAG #### [facility] , Glucose [Mass/volume] in Uri ne by Test stripOrdered By: Gordy Matthew on 03-09-2024 Glucose Test strip (U) [Mass/Vol] Normal mg/dL Normal [facility] Hematocrit [Volume Fraction] of Blood by Automated countOrdered By: Gordy Matthew on 03-09-2024 Hematocrit (Bld) [Volume fraction] 41.1 % Normal 34.0-46.4 [facility] Comment on above: Performed By: #### C RP, CK, CBC, CMP, T4F, ESR, TSH3, ADDONUAPLUS #### [address] #### SPE, KARUNA,URINE, BIGG, HBCAB, ALDOLASE, RPR W RFX, HCV RX PCR, UPE RAND, HBSAB, QUANT TB, CHROMATIN, HBSAG #### [facility] , Hemoglobin Test strip Ql (U) Ordered By: Gordy Matthew on 03-09-2024 Hemoglobin Ql (U) Negative Negative [facility] Hemoglobin [Mass/volume] in BloodOrdered By: Gordy Matthew on 03-09-2024 Hemoglobin (Bld) [Mass/Vol] 13.6 g/dL Normal 11.8-15.4 [facility] Comment on above: Performed By: #### C RP, CK, CBC, CMP, T4F, ESR, TSH3, ADDONUAPLUS #### [address] #### SPE, KARUNA,URINE, BIGG, HBCAB, ALDOLASE, RPR W RFX, HCV RX PCR, UPE RAND, HBSAB, QUANT TB, CHROMATIN, HBSAG #### [facility] , Hep C Ab wRfx to Qnt PCRon 0 03-09-2024 Hepatitis C Virus Antibody Non-Reactive Normal Non Reactive [facility] Comment on above: Performed By: #### C RP, CK, CBC, CMP, T4F, ESR, TSH3, ADDONUAPLUS #### [address] #### SPE, KARUNA,URINE, BIGG, HBCAB, ALDOLASE, RPR W RFX, HCV RX PCR, UPE RAND, HBSAB, QUANT TB, CHROMATIN, HBSAG #### [facility] , Interpretation Hepatitis C Comment Normal . [facility] Comment on above: Result Comment: Not infected with HCV unless early or acute infection is suspected (which may be delayed in an immunocompromised individual), or other evidence exists to indicate HCV infection. Performed By: #### C RP, CK, CBC, CMP, T4F, ESR, TSH3, ADDONUAPLUS #### [place] [address] [place] #### SPE, KARUNA,URINE, BIGG, HBCAB, ALDOLASE, RPR W RFX, HCV RX PCR, UPE RAND, HBSAB, QUANT TB, CHROMATIN, HBSAG #### [facility] , Hepatitis B Core Antibodyon 03-09-2024 Hepatitis B Core Antibody Negative Normal Negative [facility] Comment on above: Result Comment: Perf ormed at: - [facility] [address] [id number] Affiliate Marketing Manager: Jasiel Key PhD, Phone: [phone] Performed By: #### C RP, CK, CBC, CMP, T4F, ESR, TSH3, ADDONUAPLUS #### [place] [address] [place] #### SPE, KARUNA,URINE, BIGG, HBCAB, ALDOLASE, RPR W RFX, HCV RX PCR, UPE RAND, HBSAB, QUANT TB, CHROMATIN, HBSAG #### [facility] , Hepatitis B Surface Antibody on 03-09-2024 Hepatitis B Surface Antibody Non-Reactive Normal . [facility] [...] CMP, T4F, ESR, TSH3, ADDONUAPLUS #### [place] [address] [place] #### SPE, KARUNA,URINE, BIGG, HBCAB, ALDOLASE, RPR W RFX, HCV RX PCR, UPE RAND, HBSAB, QUANT TB, CHROMATIN, HBSAG #### [facility] , Hepatitis B Surface Antigeno n 03-09-2024 HBsAg Screen Negative Normal Negative [facility] Comment on above: Result Comment: PERF ORMED BY: [place] [address] PATHOLOGIST TRANSFER AND PUMPHOUSE OPERATOR CHIEF JOCELYN EDGE M.D. Performed By: #### C RP, CK, CBC, CMP, T4F, ESR, TSH3, ADDONUAPLUS #### [facility] [address] [place] [address] [place] #### SPE, KARUNA,URINE, BIGG, HBCAB, ALDOLASE, RPR W RFX, HCV RX PCR, UPE RAND, HBSAB, QUANT TB, CHROMATIN, HBSAG #### [facility] , Hyaline casts [#/area] in Ur ine sediment by Automated countOrdered By: Gordy Matthew on 03-09-2024 Hyaline casts Auto (Urine sed) [#/Area] None [LPF] 0-8 [facility] Immunofixation, (KARUNA), Urine on 03-09-2024 Immunofixation, (KARUNA), Urine Comment Normal . [facility] Comment on above: Result Comment: No m onoclonality detected. Performed at: [facility] [address] [id number] Affiliate Marketing Manager: Jasiel Key PhD, Phone: [phone] Performed By: #### C RP, CK, CBC, CMP, T4F, ESR, TSH3, ADDONUAPLUS #### [facility] [address] [place] [address] [place] #### SPE, KARUNA,URINE, BIGG, HBCAB, ALDOLASE, RPR W RFX, HCV RX PCR, UPE RAND, HBSAB, QUANT TB, CHROMATIN, HBSAG #### [facility] , Ketones [Presence] in Urine by Test stripOrdered By: Gordy Matthew on 03-09-2024 Ketones Ql (U) Negative Normal Negative [facility] Comment on above: Order Comment: Name Collection Type:: Clean-Voided Midstream Performed By: #### C RP, CK, CBC, CMP, T4F, ESR, TSH3, ADDONUAPLUS #### [address] #### SPE, KARUNA,URINE, BIGG, HBCAB, ALDOLASE, RPR W RFX, HCV RX PCR, UPE RAND, HBSAB, QUANT TB, CHROMATIN, HBSAG #### [facility] , Leukocyte esterase [Presence ] in Urine by Test stripOrdered By: Gordy Matthew on 03-09-2024 Leukocyte esterase Test strip Ql (U) Negative Normal Negative [facility] Comment on above: Order Comment: Name Collection Type:: Clean-Voided Midstream Performed By: #### C RP, CK, CBC, CMP, T4F, ESR, TSH3, ADDONUAPLUS #### [facility] [address] [place] [address] #### SPE, KARUNA,URINE, BIGG, HBCAB, ALDOLASE, RPR W RFX, HCV RX PCR, UPE RAND, HBSAB, QUANT TB, CHROMATIN, HBSAG #### [facility] , Leukocytes [#/area] in Urine sediment by Automated countOrdered By: Gordy Matthew on 03-09-2024 WBC Auto (Urine sed) [#/Area] 3-4 [HPF] 0-4 [facility] Leukocytes [#/volume] correc [place] for nucleated erythrocytes in Blood by Automated counOrdered By: Gordy Matthew on 03-09-2024 WBC corrected for nucl RBC Auto (Bld) [#/Vol] 11.4 10*3/uL 3.8-11.6 [facility] Leukocytes [#/volume] in Blo od by Automated countOrdered By: Gordy Matthew on 03-09-2024 WBC (Bld) [#/Vol] 11.4 10*3/uL Normal 3.8-11.6 [facility] Comment on above: Performed By: #### C RP, CK, CBC, CMP, T4F, ESR, TSH3, ADDONUAPLUS #### [address] #### SPE, KARUNA,URINE, BIGG, HBCAB, ALDOLASE, RPR W RFX, HCV RX PCR, UPE RAND, HBSAB, QUANT TB, CHROMATIN, HBSAG #### [facility] , Lymphocytes [#/volume] in Bl ood by Automated countOrdered By: Gordy Matthew on 03-09-2024 Lymphocytes (Bld) [#/Vol] 2.8 10*3/uL Normal 1.00-4.8 [facility] Comment on above: Performed By: #### C RP, CK, CBC, CMP, T4F, ESR, TSH3, ADDONUAPLUS #### [address] #### SPE, KARUNA,URINE, BIGG, HBCAB, ALDOLASE, RPR W RFX, HCV RX PCR, UPE RAND, HBSAB, QUANT TB, CHROMATIN, HBSAG #### [facility] , Lymphocytes/100 leukocytes i n Blood by Automated countOrdered By: Gordy Matthew on 03-09-2024 Lymphocytes/100 WBC (Bld) 24.4 % Normal . [facility] Comment on above: Performed By: #### C RP, CK, CBC, CMP, T4F, ESR, TSH3, ADDONUAPLUS #### [address] #### SPE, KARUNA,URINE, BIGG, HBCAB, ALDOLASE, RPR W RFX, HCV RX PCR, UPE RAND, HBSAB, QUANT TB, CHROMATIN, HBSAG #### [facility] , MCH [Entitic mass] by Automa dakotah countOrdered By: Gordy Matthew on 03-09-2024 MCH (RBC) [Entitic mass] 28.8 pg Normal 24.7-34.3 [facility] Comment on above: Performed By: #### C RP, CK, CBC, CMP, T4F, ESR, TSH3, ADDONUAPLUS #### [place] [address] [place] #### SPE, KARUNA,URINE, BIGG, HBCAB, ALDOLASE, RPR W RFX, HCV RX PCR, UPE RAND, HBSAB, QUANT TB, CHROMATIN, HBSAG #### [facility] , MCHC Auto (RBC) [Mass/Vol]Or dered By: Gordy Matthew on 03-09-2024 MCHC (RBC) [Mass/Vol] 33.0 g/dL 32.0-35.[address] [facility] MCV [Entitic volume] by Auto mated countOrdered By: Gordy Matthew on 03-09-2024 MCV (RBC) [Entitic vol] 87.3 fL Normal 80-100 [facility] Comment on above: Performed By: #### C RP, CK, CBC, CMP, T4F, ESR, TSH3, ADDONUAPLUS #### [address] #### SPE, KARUNA,URINE, BIGG, HBCAB, ALDOLASE, RPR W RFX, HCV RX PCR, UPE RAND, HBSAB, QUANT TB, CHROMATIN, HBSAG #### [facility] , Mucus [Presence] in Urine by AutomatedOrdered By: Gordy Matthew on 03-09-2024 Mucus Auto Ql (U) Rare [LPF] [facility] Neutrophils [#/volume] in Bl ood by Automated countOrdered By: Gordy Matthew on 03-09-2024 Neutrophils (Bld) [#/Vol] 7.5 10*3/uL Normal 1.8-7.7 [facility] Comment on above: Performed By: #### C RP, CK, CBC, CMP, T4F, ESR, TSH3, ADDONUAPLUS #### [place] [address] [place] #### SPE, KARUNA,URINE, BIGG, HBCAB, ALDOLASE, RPR W RFX, HCV RX PCR, UPE RAND, HBSAB, QUANT TB, CHROMATIN, HBSAG #### [facility] , Nitrite Test strip Ql (U)Ord ered By: Gordy Matthew on 03-09-2024 Nitrite Ql (U) Negative Negative [facility] No Panel InformationOrdered By: Gordy Matthew on 03-09-2024 Estimated GFR (CKD-EPI) > 60.0 mL/Min [facility] Creatinine Clearance (Chem N/A [facility] Nucleated erythrocytes [Pres ence] in Blood by Automated countOrdered By: Gordy Matthew on 03-09-2024 Nucleated RBC Auto Ql (Bld) 0.1 /100{WBC} 0-0.5 [facility] Platelet mean volume [Entiti c volume] in Blood by Automated countOrdered By: Gordy Matthew on 03-09-2024 Platelet mean volume (Bld) [Entitic vol] 8.3 fL Normal 6.3-10.7 [facility] Comment on above: Performed By: #### C RP, CK, CBC, CMP, T4F, ESR, TSH3, ADDONUAPLUS #### [facility] [address] [place] [address] [place] #### SPE, KARUNA,URINE, BIGG, HBCAB, ALDOLASE, RPR W RFX, HCV RX PCR, UPE RAND, HBSAB, QUANT TB, CHROMATIN, HBSAG #### [facility] , Platelets [#/volume] in Bloo d by Automated countOrdered By: Gordy Matthew on 03-09-2024 Platelets (Bld) [#/Vol] 332 10*3/uL Normal 150-450 [facility] Comment on above: Performed By: #### C RP, CK, CBC, CMP, T4F, ESR, TSH3, ADDONUAPLUS #### [facility] [address] [place] [address] [place] #### SPE, KARUNA,URINE, BIGG, HBCAB, ALDOLASE, RPR W RFX, HCV RX PCR, UPE RAND, HBSAB, QUANT TB, CHROMATIN, HBSAG #### [facility] , Potassium [Moles/volume] in Serum or PlasmaOrdered By: Gordy Farooqrow on 03-09-2024 Potassium [Moles/Vol] 4.2 mmol/L Normal 3.5-5.[address] [facility] Comment on above: Performed By: #### C RP, CK, CBC, CMP, T4F, ESR, TSH3, ADDONUAPLUS #### [address] #### SPE, KARUNA,URINE, BIGG, HBCAB, ALDOLASE, RPR W RFX, HCV RX PCR, UPE RAND, HBSAB, QUANT TB, CHROMATIN, HBSAG #### [facility] , Protein Electro, Random Urin krysten 03-09-2024 Albumin, Urine 15.5 % Normal . [facility] Comment on above: Performed By: #### C RP, CK, CBC, CMP, T4F, ESR, TSH3, ADDONUAPLUS #### [address] #### SPE, KARUNA,URINE, BIGG, HBCAB, ALDOLASE, RPR W RFX, HCV RX PCR, UPE RAND, HBSAB, QUANT TB, CHROMATIN, HBSAG #### [facility] , Rtpvp-2-Tlbbaryb, Urine 5.6 % Normal . [facility] Comment on above: Performed By: #### C RP, CK, CBC, CMP, T4F, ESR, TSH3, ADDONUAPLUS #### [address] #### SPE, KARUNA,URINE, BIGG, HBCAB, ALDOLASE, RPR W RFX, HCV RX PCR, UPE RAND, HBSAB, QUANT TB, CHROMATIN, HBSAG #### [facility] , Howzj-0-Ofgtroix, Urine 21.4 % Normal . [facility] Comment on above: Performed By: #### C RP, CK, CBC, CMP, T4F, ESR, TSH3, ADDONUAPLUS #### [address] #### SPE, KARUNA,URINE, BIGG, HBCAB, ALDOLASE, RPR W RFX, HCV RX PCR, UPE RAND, HBSAB, QUANT TB, CHROMATIN, HBSAG #### [facility] , Beta Globulin, Urine 31.2 % Normal . [facility] Comment on above: Performed By: #### C RP, CK, CBC, CMP, T4F, ESR, TSH3, ADDONUAPLUS #### [address] #### SPE, KARUNA,URINE, BIGG, HBCAB, ALDOLASE, RPR W RFX, HCV RX PCR, UPE RAND, HBSAB, QUANT TB, CHROMATIN, HBSAG #### [facility] , Gamma Globulin, Urine 26.4 % Normal . [facility] Comment on above: Performed By: #### C RP, CK, CBC, CMP, T4F, ESR, TSH3, ADDONUAPLUS #### [address] #### SPE, KARUNA,URINE, BIGG, HBCAB, ALDOLASE, RPR W RFX, HCV RX PCR, UPE RAND, HBSAB, QUANT TB, CHROMATIN, HBSAG #### [facility] , M-Leonid % Not Observed Normal Not Observed [facility] Comment on above: Performed By: #### C RP, CK, CBC, CMP, T4F, ESR, TSH3, ADDONUAPLUS #### [address] #### SPE, KARUNA,URINE, BIGG, HBCAB, ALDOLASE, RPR W RFX, HCV RX PCR, UPE RAND, HBSAB, QUANT TB, CHROMATIN, HBSAG #### [facility] , Please Note: Comment Normal . [facility] Comment on above: Result Comment: Prot ein electrophoresis scan will follow via computer, mail, or community facilitator delivery. PERFORMED BY: [place] [address] PATHOLOGIST TRANSFER AND PUMPHOUSE OPERATOR CHIEF JOCELYN EDGE M.D. Performed By: #### C RP, CK, CBC, CMP, T4F, ESR, TSH3, ADDONUAPLUS #### [place] [address] [place] #### SPE, KARUNA,URINE, BIGG, HBCAB, ALDOLASE, RPR W RFX, HCV RX PCR, UPE RAND, HBSAB, QUANT TB, CHROMATIN, HBSAG #### [facility] , Protein (U) [Mass/Vol] 4.1 mg/dL Normal Not Estab. [facility] Comment on above: Performed By: #### C RP, CK, CBC, CMP, T4F, ESR, TSH3, ADDONUAPLUS #### [address] #### SPE, KARUNA,URINE, BIGG, HBCAB, ALDOLASE, RPR W RFX, HCV RX PCR, UPE RAND, HBSAB, QUANT TB, CHROMATIN, HBSAG #### [facility] , Protein Electrophoresis, Ser umon 03-09-2024 Albumin [Mass/Vol] 3.8 g/dL Normal 2.9-4.4 [facility] Comment on above: Performed By: #### C RP, CK, CBC, CMP, T4F, ESR, TSH3, ADDONUAPLUS #### [address] #### SPE, KARUNA,URINE, BIGG, HBCAB, ALDOLASE, RPR W RFX, HCV RX PCR, UPE RAND, HBSAB, QUANT TB, CHROMATIN, HBSAG #### [facility] , Albumin/Globulin [Mass ratio] 1.2 {ratio} Normal 0.7-1.7 [facility] Comment on above: Performed By: #### C RP, CK, CBC, CMP, T4F, ESR, TSH3, ADDONUAPLUS #### [place] [address] [place] #### SPE, KARUNA,URINE, BIGG, HBCAB, ALDOLASE, RPR W RFX, HCV RX PCR, UPE RAND, HBSAB, QUANT TB, CHROMATIN, HBSAG #### [facility] , Kuxji-4-Jakrcfgh 0.2 g/dL Normal 0.0-0.4 [facility] Comment on above: Performed By: #### C RP, CK, CBC, CMP, T4F, ESR, TSH3, ADDONUAPLUS #### [address] #### SPE, KARUNA,URINE, BIGG, HBCAB, ALDOLASE, RPR W RFX, HCV RX PCR, UPE RAND, HBSAB, QUANT TB, CHROMATIN, HBSAG #### [facility] , Tzuoo-3-Khmecwnk 0.7 g/dL Normal 0.4-1.0 [facility] Comment on above: Performed By: #### C RP, CK, CBC, CMP, T4F, ESR, TSH3, ADDONUAPLUS #### [address] #### SPE, KARUNA,URINE, BIGG, HBCAB, ALDOLASE, RPR W RFX, HCV RX PCR, UPE RAND, HBSAB, QUANT TB, CHROMATIN, HBSAG #### [facility] , Beta Globulin 1.1 g/dL Normal 0.7-1.3 [facility] Comment on above: Performed By: #### C RP, CK, CBC, CMP, T4F, ESR, TSH3, ADDONUAPLUS #### [place] [address] [place] #### SPE, KARUNA,URINE, BIGG, HBCAB, ALDOLASE, RPR W RFX, HCV RX PCR, UPE RAND, HBSAB, QUANT TB, CHROMATIN, HBSAG #### [facility] , Gamma Globulin 1.3 g/dL Normal 0.4-1.8 [facility] Comment on above: Performed By: #### C RP, CK, CBC, CMP, T4F, ESR, TSH3, ADDONUAPLUS #### [place] [address] [place] #### SPE, KARUNA,URINE, BIGG, HBCAB, ALDOLASE, RPR W RFX, HCV RX PCR, UPE RAND, HBSAB, QUANT TB, CHROMATIN, HBSAG #### [facility] , Globulin (S) [Mass/Vol] 3.3 g/dL Normal 2.2-3.9 [facility] Comment on above: Performed By: #### C RP, CK, CBC, CMP, T4F, ESR, TSH3, ADDONUAPLUS #### [place] [address] [place] #### SPE, KARUNA,URINE, BIGG, HBCAB, ALDOLASE, RPR W RFX, HCV RX PCR, UPE RAND, HBSAB, QUANT TB, CHROMATIN, HBSAG #### [facility] , M-Leonid Not Observed Normal Not Observed [facility] Comment on above: Performed By: #### C RP, CK, CBC, CMP, T4F, ESR, TSH3, ADDONUAPLUS #### [place] [address] [place] #### SPE, KARUNA,URINE, BIGG, HBCAB, ALDOLASE, RPR W RFX, HCV RX PCR, UPE RAND, HBSAB, QUANT TB, CHROMATIN, HBSAG #### [facility] , SPE-Note Comment Normal . [facility] Comment on above: Result Comment: Prot ein electrophoresis scan will follow via computer, mail, or community facilitator delivery. Performed at: [facility] [address] [id number] Affiliate Marketing Manager: Jasiel Key PhD, Phone: [phone] Performed By: #### C RP, CK, CBC, CMP, T4F, ESR, TSH3, ADDONUAPLUS #### [facility] [address] [place] [address] [place] #### SPE, KARUNA,URINE, BIGG, HBCAB, ALDOLASE, RPR W RFX, HCV RX PCR, UPE RAND, HBSAB, QUANT TB, CHROMATIN, HBSAG #### [facility] , Protein Test strip (U) [Mass /Vol]Ordered By: Gordy Matthew on 03-09-2024 Protein (U) [Mass/Vol] Negative Negative [facility] Protein [Mass/volume] in Ser um or PlasmaOrdered By: Gordy Matthew on 03-09-2024 Protein [Mass/Vol] 7.1 g/dL Normal 6.0-8.5 [facility] Comment on above: Performed By: #### C RP, CK, CBC, CMP, T4F, ESR, TSH3, ADDONUAPLUS #### [facility] [address] [place] [address] #### SPE, KARUNA,URINE, BIGG, HBCAB, ALDOLASE, RPR W RFX, HCV RX PCR, UPE RAND, HBSAB, QUANT TB, CHROMATIN, HBSAG #### [facility] , QuantiFERON TB Goldon 2023 QFTB Criteria Comment Normal . [facility] Comment on [...] CMP, T4F, ESR, TSH3, ADDONUAPLUS #### [place] [address] [place] #### SPE, KARUNA,URINE, BIGG, HBCAB, ALDOLASE, RPR W RFX, HCV RX PCR, UPE RAND, HBSAB, QUANT TB, CHROMATIN, HBSAG #### [facility] , Quant TB Ag Value 0.00 Normal . [facility] Comment on above: Performed By: #### C RP, CK, CBC, CMP, T4F, ESR, TSH3, ADDONUAPLUS #### [place] [address] [place] #### SPE, KARUNA,URINE, BIGG, HBCAB, ALDOLASE, RPR W RFX, HCV RX PCR, UPE RAND, HBSAB, QUANT TB, CHROMATIN, HBSAG #### [facility] , Quant TB Gold Plus Negative Normal Negative [facility] Comment on above: [...] interferon gamma. Chemiluminescence immunoassay methodology Performed at: [facility] [address] [id number] Affiliate Marketing Manager: Jasiel Key PhD, Phone: [phone] PERFORMED BY: [place] [address] PATHOLOGIST TRANSFER AND PUMPHOUSE OPERATOR CHIEF JOCELYN EDGE M.D. Performed By: #### C RP, CK, CBC, CMP, T4F, ESR, TSH3, ADDONUAPLUS #### [address] #### SPE, KARUNA,URINE, BIGG, HBCAB, ALDOLASE, RPR W RFX, HCV RX PCR, UPE RAND, HBSAB, QUANT TB, CHROMATIN, HBSAG #### [facility] , Quant TB2 Ag Value 0.00 Normal . [facility] Comment on above: Performed By: #### C RP, CK, CBC, CMP, T4F, ESR, TSH3, ADDONUAPLUS #### [place] [address] [place] #### SPE, KARUNA,URINE, BIGG, HBCAB, ALDOLASE, RPR W RFX, HCV RX PCR, UPE RAND, HBSAB, QUANT TB, CHROMATIN, HBSAG #### [facility] , Quantiferon Nil Value 0.00 Normal . [facility] Comment on above: Performed By: #### C RP, CK, CBC, CMP, T4F, ESR, TSH3, ADDONUAPLUS #### [facility] [address] [place] [address] [place] #### SPE, KARUNA,URINE, BIGG, HBCAB, ALDOLASE, RPR W RFX, HCV RX PCR, UPE RAND, HBSAB, QUANT TB, CHROMATIN, HBSAG #### [facility] , Quantiferon TB Mitogen >10.00 Normal . [facility] Comment on above: Performed By: #### C RP, CK, CBC, CMP, T4F, ESR, TSH3, ADDONUAPLUS #### [address] #### SPE, KARUNA,URINE, BIGG, HBCAB, ALDOLASE, RPR W RFX, HCV RX PCR, UPE RAND, HBSAB, QUANT TB, CHROMATIN, HBSAG #### [facility] , RPR w/rfx to Quant TP Abson 03-09-2024 RPR, Rfx Quant RPR Non-Reactive Normal Non Reactive [facility] Comment on above: Result Comment: Perf ormed at: - [facility] [place] [id number] Affiliate Marketing Manager: Jasiel Key PhD, Phone: [phone] PERFORMED BY: [place] [address] PATHOLOGIST TRANSFER AND PUMPHOUSE OPERATOR CHIEF JOCELYN EDGE M.D. Performed By: #### C RP, CK, CBC, CMP, T4F, ESR, TSH3, ADDONUAPLUS #### [address] #### SPE, KARUNA,URINE, BIGG, HBCAB, ALDOLASE, RPR W RFX, HCV RX PCR, UPE RAND, HBSAB, QUANT TB, CHROMATIN, HBSAG #### [facility] , Serum globulin measurement b y calculation (mass/volume)Ordered By: Gordy Matthew on 03-09-2024 Globulin (S) [Mass/Vol] 2.9 g/dL Normal F [facility] Comment on above: Performed By: #### C RP, CK, CBC, CMP, T4F, ESR, TSH3, ADDONUAPLUS #### [facility] [address] [place] [address] #### SPE, KARUNA,URINE, BIGG, HBCAB, ALDOLASE, RPR W RFX, HCV RX PCR, UPE RAND, HBSAB, QUANT TB, CHROMATIN, HBSAG #### [facility] , Serum or plasma albumin/glob ulin mass ratioOrdered By: Gordylarry Matthew on 03-09-2024 Albumin/Globulin [Mass ratio] 1.4 {ratio} [facility] Comment on above: Performed By: #### C RP, CK, CBC, CMP, T4F, ESR, TSH3, ADDONUAPLUS #### [facility] [address] [place] [address] #### SPE, KARUNA,URINE, BIGG, HBCAB, ALDOLASE, RPR W RFX, HCV RX PCR, UPE RAND, HBSAB, QUANT TB, CHROMATIN, HBSAG #### [facility] , Serum or plasma anion gap de terminationOrdered By: Gordylarry Matthew on 03-09-2024 Anion gap [Moles/Vol] 9.8 mmol/L Normal 6.0-15.[address] [facility] Comment on above: Performed By: #### C RP, CK, CBC, CMP, T4F, ESR, TSH3, ADDONUAPLUS #### [facility] [address] [place] [address] [place] #### SPE, KARUNA,URINE, BIGG, HBCAB, ALDOLASE, RPR W RFX, HCV RX PCR, UPE RAND, HBSAB, QUANT TB, CHROMATIN, HBSAG #### [facility] , Sodium [Moles/volume] in Ser um or PlasmaOrdered By: Gordy Vipul on 03-09-2024 Sodium [Moles/Vol] 139 mmol/L Normal 136-145 [facility] Comment on above: Performed By: #### C RP, CK, CBC, CMP, T4F, ESR, TSH3, ADDONUAPLUS #### [facility] [address] [place] [address] #### SPE, KARUNA,URINE, BIGG, HBCAB, ALDOLASE, RPR W RFX, HCV RX PCR, UPE RAND, HBSAB, QUANT TB, CHROMATIN, HBSAG #### [facility] , Specific gravity Test strip (U) [Rel density]Ordered By: Gordy Farooqrow on 03-09-2024 Specific gravity (U) [Rel density] 1.013 1.001-1.030 [facility] Thyrotropin [Units/volume] i n Serum or PlasmaOrdered By: Gordy Farooqrow on 03-09-2024 TSH Qn 2.78 m[IU]/L Normal 0.45-5.33 [facility] Comment on above: Result Comment: PERF ORMED BY: [place] [address] PATHOLOGIST [employer]SF[employer] AND [employer] CHIEF JOCELYN EDGE M.D. Performed By: #### C RP, CK, CBC, CMP, T4F, ESR, TSH3, ADDONUAPLUS #### [address] #### SPE, KARUNA,URINE, BIGG, HBCAB, ALDOLASE, RPR W RFX, HCV RX PCR, UPE RAND, HBSAB, QUANT TB, CHROMATIN, HBSAG #### [facility] , Thyroxine (T4) free [Mass/vo lume] in Serum or PlasmaOrdered By: Gordy Matthew on 03-09-2024 Free T4 [Mass/Vol] 0.78 ng/dL Normal 0.61-1.12 [facility] Comment on above: Performed By: #### C RP, CK, CBC, CMP, T4F, ESR, TSH3, ADDONUAPLUS #### [facility] [address] [place] [address] #### SPE, KARUNA,URINE, BIGG, HBCAB, ALDOLASE, RPR W RFX, HCV RX PCR, UPE RAND, HBSAB, QUANT TB, CHROMATIN, HBSAG #### [facility] , Urea nitrogen [Mass/volume] in Serum or PlasmaOrdered By: Gordy Matthew on 03-09-2024 Urea nitrogen [Mass/Vol] 15 mg/dL Normal 01-06 [facility] Comment on above: Performed By: #### C RP, CK, CBC, CMP, T4F, ESR, TSH3, ADDONUAPLUS #### [address] #### SPE, KARUNA,URINE, BIGG, HBCAB, ALDOLASE, RPR W RFX, HCV RX PCR, UPE RAND, HBSAB, QUANT TB, CHROMATIN, HBSAG #### [facility] , Urine appearanceOrdered By: Gordy Matthew on 03-09-2024 Appearance (U) Cloudy Critically abnormal Clear [facility] Comment on above: Order Comment: Name Collection Type:: Clean-Voided Midstream Performed By: #### C RP, CK, CBC, CMP, T4F, ESR, TSH3, ADDONUAPLUS #### [address] #### SPE, KARUNA,URINE, BIGG, HBCAB, ALDOLASE, RPR W RFX, HCV RX PCR, UPE RAND, HBSAB, QUANT TB, CHROMATIN, HBSAG #### [facility] , Urobilinogen Test strip (U) [Mass/Vol]Ordered By: Gordy Matthew on 03-09-2024 Urobilinogen (U) [Mass/Vol] Normal mg/dL Normal [facility] pH of Urine by Test stripOrd ered By: Gordy Matthew on 03-09-2024 pH (U) 7.0 [pH] Normal 5.0-9.0 [facility] Comment on above: Order Comment: Name Collection Type:: Clean-Voided Midstream Performed By: #### C RP, CK, CBC, CMP, T4F, ESR, TSH3, ADDONUAPLUS #### [place] [address] [place] #### SPE, KARUNA,URINE, BIGG, HBCAB, ALDOLASE, RPR W RFX, HCV RX PCR, UPE RAND, HBSAB, QUANT TB, CHROMATIN, HBSAG #### [facility] , COVID/FLU/RSV RT-PCRon 06-14 SARS-CoV-2 (COVID-19) RNA VIVEK+probe Ql (Unsp spec) Negative [facility] Other COVID/FLU/RSV RT-PCR Negative [facility] Other COVID/FLU/RSV RT-PCR Positive [facility] Other Outside Colonoscopyon 2022 Outside Colonoscopy [id number] 0#1.00CD:127 [facility] Reminderson 10-02-2022 Reminders - From: Kisha Samuel LPN To: [facility] - Clinical; Sent: 10/02/2022 08:43:18 EDT Show up: 08/31/2032 07:00:00 EDT Subject: colonoscopy recall Due Date/Time: 10/01/2032 07:00:00 EDT Reminder/Recall Patient is due for screening colonoscopy 10/01/2032. [facility] Consent for Procedure/Surger yon 09-11-2022 Consent for Procedure/Surgery [id number] #1.00CD:127 [facility] Facesheeton 09-11-2022 Facesheet [id number] #1.00CD:127 [facility] Pre-Certification Formon Pre-Certification Form [id number] 1#1.00CD:127 [facility] Ambulatory Visit Summaryon 0 09-10-2022 Ambulatory Visit Summary NEWBRIE CONTI Mariely :1955 Visit Date:09/10/2022 Ambulatory Visit Instructions Your [...] reflux disease) Osteoarthritis Seasonal allergic rhinitis Normal [facility] Physician Referralon 023 Physician Referral [id number] #1.00CD:127 Normal [facility] Follow-Upon 05-15-2022 Follow-Up [id number] Brie Eagle 1955 F Date Provider Department Center 05/15/2022 TIMMY ROMAN MP MPORTHO Family History Problem Relation Age of Onset Diabetes Mother Heart disease Mother Arthritis Mother No Known Problems Father Family Status - Relation Status Age at Mother Father Level of Service:25524 [place] OFFICE/OUTPATIENT ESTABLISHED LOW MDM 20-29 MIN Reason for Visit and Comments: Follow-up [293159] - Yearly follow up Normal [facility] XR DEXA BONE DENSITYon 04-28 XR [...] by: STEPHANIE RAYA Date: 2022-04-28 17:04 Normal [facility] MAMM SCREEN 3D ARCELIA CADon 04-23-2022 MG MAMM SCREEN 3D ARCELIA CAD Patient: BRIE EAGLE Exam Date: 04/23/2022 : 1955 Gender:F Ordering : DR ARETHA BREWSTER . Admission #: [id number] Family : Order #: [id number] CLICK HERE TO VIEW EXAM RADIOLOGY REPORT PROCEDURE: MAMMOGRAM SCREENING 3D BILATERAL CAD COMPARISON: MG MAMM SCREEN 3D ARCELIA CAD, 04/17/2021. INDICATIONS: Screening mammography Calculator Name NCI Breast Cancer Risk Assessment Tool 5 Year Breast Cancer Risk Not Reported. Lifetime Breast Cancer Risk Not Reported. Personal Breast Cancer No Personal Ovarian Cancer No Treatments None Family Cancers None LOCATION: [facility] BREAST COMPOSITION: Scattered areas fibroglandular density. [...] MD on 04/23/2022 at 13:09 Approved by: Stehpanie Raya MD on 04/23/2022 at 13:[address] [facility] NM STRESS/REST MULTIon 04-10 NM STRESS/REST MULTI Patient: BRIE EAGLE Exam Date: 04/10/2022 : 1955 Gender:F Ordering : DR ARETHA BREWSTER . Admission #: [id number] Family : Order #: [id number] CLICK HERE TO VIEW EXAM RADIOLOGY REPORT [...] Calderon M.D. on 04/10/2022 at 13:[address] [facility] AMYLASEon 03-24-2022 Amylase [Catalytic activity/Vol] 51 U/L Normal 25-115 [facility] Comment on above: Performed By: #### A MY, LIPA, CMADM, HSTROPN #### [facility] [address] [address] [address] Christos Richardson CARDIAC MONA ADMITon 022 CK [Catalytic activity/Vol] 67 U/L Normal 26-[address] [facility] Comment on above: Performed By: #### A MY, LIPA, CMADM, HSTROPN #### [facility] [address] [address] [address] Christos Richardson CK.MB [Mass/Vol] 0.93 ng/mL Normal <=3.60 [facility] Comment on above: Performed By: #### A MY, LIPA, CMADM, HSTROPN #### [facility] [address] [address] [address] Christos Richardson GAYATHRI 32 ng/mL Normal 9-[address] [facility] Comment on above: Performed By: #### A MY, LIPA, CMADM, HSTROPN #### [facility] [address] [address] [address] Christos Richardson CBC AUTO DIFFon 03-24-2022 BASO # 0.1 103/ul Normal 0.0-0.[address] [facility] Comment on above: Performed By: #### C BC ####[facility] [address] [address]Dr. Christos Richardson Basophils/100 WBC (Bld) 0.7 % Normal 0.2-2.0 [facility] Comment on above: Performed By: #### C BC ####[facility] [address] [address]DrEstela Richardson EO # 0.1 103/ul Normal 0.0-0.[address] [facility] Comment on above: Performed By: #### C BC ####[facility] [address] [address]DrEstela Richardson Eosinophils/100 WBC (Bld) 0.8 % Critically low 0.9-7.[address] [facility] Comment on above: Performed By: #### C BC ####[facility] [address] [place], [place] [address]Dr. Christos Richardson Erythrocyte distribution width (RBC) [Ratio] 13.4 % Normal 11.0-15.0 [facility] Comment on above: Performed By: #### C BC ####[facility] [address] [place], [place] [address]Dr. Christos Richardson Hematocrit (Bld) [Volume fraction] 40.9 % Normal 36.0-48.0 [facility] Comment on above: Performed By: #### C BC ####[facility] G[address] [place], [place] [address]Dr. Christos Richardson Hemoglobin (Bld) [Mass/Vol] 13.3 g/dL Normal 12.0-16.0 [facility] Comment on above: Performed By: #### C BC ####[facility] [address] [place], [place] [address]Dr. Devoramarissa Richardson IG # 0.02 10e3/ul Normal 0.00-0.03 [facility] Comment on above: Performed By: #### C BC ####[facility] [address] [place], [place] [address]Dr. Christos Richardson IG % 0.3 % Normal 0.0-0.5 [facility] Comment on above: Performed By: #### C BC ####[facility] [address] [place], [place] [address]Dr. Christos Richardson LYMPH # 2.3 103/ul Normal 1.2-3.8 [facility] Comment on above: Performed By: #### C BC ####[facility] [address] [place], [place] [address]Dr. Devoramarissa Richardson Lymphocytes/100 WBC (Bld) 32.6 % Normal 20.5-60.0 [facility] Comment on above: Performed By: #### C BC ####[facility] [address] [place], [place] [address]Dr. Devoramarissa Richardson MANUAL DIFF REQ NO Normal [facility] Comment on above: Performed By: #### C BC ####[facility] [address]rg[address] [place], [place] [address]Dr. Christos Richardson MCH (RBC) [Entitic mass] 29.2 pg Normal 26.7-34.[address] [facility] Comment on above: Performed By: #### C BC ####[facility] [address] [address]Dr. Christos Richardson MCHC (RBC) [Mass/Vol] 32.5 g/dL Normal 29.9-35.2 [facility] Comment on above: Performed By: #### C BC ####[facility] [address] [address]Dr. Christos Richardson MCV (RBC) [Entitic vol] 89.9 fL Normal 81.0-99.0 [facility] Comment on above: Performed By: #### C BC ####[facility] [address] [address]Dr. Christos Richardson MONO # 1.0 103/ul Critically high 0.3-0.8 [facility] Comment on above: Performed By: #### C BC ####[facility] [address] [address]Dr. Christos Richardson Monocytes/100 WBC (Bld) 14.2 % Critically high 1.7-12. 0 [facility] Comment on above: Performed By: #### C BC ####[facility] [address] [address]Dr. Christos Richardson NEUT # 3.7 103/ul Normal 1.4-6.5 [facility] Comment on above: Performed By: #### C BC ####[facility] [address] [address]Dr. Christos Dylan Neutrophils/100 WBC (Bld) 51.4 % Normal 43.0-75.0 [facility] Comment on above: Performed By: #### C BC ####[facility] [address] [address]Dr. Christos Richardson Platelet mean volume (Bld) [Entitic vol] 9.7 fL Normal 9.5-13.5 [facility] Comment on above: Performed By: #### C BC ####[facility] [address] [place], [place] [address]Xt. Christos Richardson PLT 271 103/ul Normal 150-450 [facility] Comment on above: Performed By: #### C BC ####[facility] [address] [place], [place] [address]Hy. Christos Richardson RBC 4.55 106/ul Normal 4.20-5.40 [facility] Comment on above: Performed By: #### C BC ####[facility] [address] [address]Dr. Christos Richardson WBC 7.1 103/ul Normal 4.0-11.0 [facility] Comment on above: Performed By: #### C BC ####[facility] [address] [address]Dr. Christos Richardson LIPASEon 03-24-2022 Lipase [Catalytic activity/Vol] 104.0 U/L Normal 73.0-393.0 [facility] Comment on above: Performed By: #### A MY, LIPA, CMADM, HSTROPN #### [facility] [address] [place], [place] [address] Dr. Christos Richardson TROPONIN, HIGH SENSITIVITYon 03-24-2022 HSTROP 6.6 pg/mL Normal 4.0-51.3 [facility] Comment on above: Result Comment: CUT- OFF POINTS HAVE BEEN ESTABLISHED BASED ON THE FOURTH UNIVERSAL DEFINITIONS OF MYOCARDIAL INFARCTION. THE UPPER REFERENCE LIMIT (URL) OF TROPONIN, DEFINED THE 99TH PERCENTILE OF cTnI DISTRIBUTION IN A REFERENCE POPULATION, HAS BEEN CONFIRMED THE DECISION THRESHOLD FOR [place] DIAGNOSIS. Performed By: #### H STROPN ####[facility] [address] [address]Dr. Christos Richardson HSTROP 6.3 pg/mL Normal 4.0-51.3 [facility] Comment on above: Result Comment: CUT- OFF POINTS HAVE BEEN ESTABLISHED BASED ON THE FOURTH UNIVERSAL DEFINITIONS OF MYOCARDIAL INFARCTION. THE UPPER REFERENCE LIMIT (URL) OF TROPONIN, DEFINED THE 99TH PERCENTILE OF cTnI DISTRIBUTION IN A REFERENCE POPULATION, HAS BEEN CONFIRMED THE DECISION THRESHOLD FOR [place] DIAGNOSIS. Performed By: #### A MY, LIPA, CMADM, HSTROPN #### [facility] [address] [place] [address] Dr. Christos Richardson XR CHEST 1 Von [...] ULISES CALDERON Date: 2022-03-24 13:53 Normal [facility] INSULINon 01-09-2022 Insulin 10.4 uIU/mL Normal 2.6-24.[address] [facility] Comment on above: Performed By: #### I NSULIN #### [facility] [address] [place] [address] Dr. Christos Richardson CBC AUTO DIFFon 01-08-2022 BASO # 0.1 103/ul Normal 0.0-0.[address] [facility] Comment on above: Performed By: #### C BC #### [facility] [address] [place] [address] Dr. Christos Richardson Basophils/100 WBC (Bld) 0.8 % Normal 0.2-2.0 [facility] Comment on above: Performed By: #### C BC #### [facility] [address] [place] [address] Dr. Christos Richardson EO # 0.1 103/ul Normal 0.0-0.[address] [facility] Comment on above: Performed By: #### C BC #### [facility] [address] [place] [address] Dr. Christos Richardson Eosinophils/100 WBC (Bld) 1.5 % Normal 0.9-7.[address] [facility] Comment on above: Performed By: #### C BC #### [facility] [address] [place] [address] Dr. Christos Richardson Erythrocyte distribution width (RBC) [Ratio] 13.6 % Normal 11.0-15.[address] [facility] Comment on above: Performed By: #### C BC #### [facility] [address] [place] [address] Dr. Christos Richardson Hematocrit (Bld) [Volume fraction] 40.4 % Normal 36.0-48.[address] [facility] Comment on above: Performed By: #### C BC #### [facility] [address] [place] [address] Dr. Christos Richardson Hemoglobin (Bld) [Mass/Vol] 12.9 g/dL Normal 12.0-16.[address] [facility] Comment on above: Performed By: #### C BC #### [facility] [address] [place] [address] Dr. Christos Richardson IG # 0.01 10e3/ul Normal 0.00-0.[address] [facility] Comment on above: Performed By: #### C BC #### [facility] [address] [place] [address] Dr. Christos Richardson IG % 0.2 % Normal 0.0-0.[address] [facility] Comment on above: Performed By: #### C BC #### [facility] [address] [place] [address] Dr. Christos Richardson LYMPH # 2.4 103/ul Normal 1.2-3.[address] [facility] Comment on above: Performed By: #### C BC #### [facility] [address] [place] [address] Dr. Christos Richardson Lymphocytes/100 WBC (Bld) 39.7 % Normal 20.5-60.[address] [facility] Comment on above: Performed By: #### C BC #### [facility] [address] [place] [address] Dr. Christos Richardson MANUAL DIFF REQ NO Normal [facility] Comment on above: Performed By: #### C BC #### [facility] [address] [place] [address] Dr. Christos Richardson MCH (RBC) [Entitic mass] 29.0 pg Normal 26.7-34.[address] [facility] Comment on above: Performed By: #### C BC #### [facility] [address] [place] [address] Dr. Christos Richardson MCHC (RBC) [Mass/Vol] 31.9 g/dL Normal 29.9-35.[address] [facility] Comment on above: Performed By: #### C BC #### [facility] [address] [place] [address] Dr. Christos Richardson MCV (RBC) [Entitic vol] 90.8 fL Normal 81.0-99.0 [facility] Comment on above: Performed By: #### C BC #### [facility] [address] [place] [address] Dr. Christos Richardson MONO # 0.8 103/ul Normal 0.3-0.[address] [facility] Comment on above: Performed By: #### C BC #### [facility] [address] [place] [address] Dr. Christos Richardson Monocytes/100 WBC (Bld) 13.5 % Critically high 1.7-12. [address] [facility] Comment on above: Performed By: #### C BC #### [facility] [address] [place] [address] Dr. Christos Richardson NEUT # 2.7 103/ul Normal 1.4-6.[address] [facility] Comment on above: Performed By: #### C BC #### [facility] [address] [place] [address] Dr. Christos Richardson Neutrophils/100 WBC (Bld) 44.3 % Normal 43.0-75.[address] [facility] Comment on above: Performed By: #### C BC #### [facility] [address] [place] [address] Dr. Christos Richardson Platelet mean volume (Bld) [Entitic vol] 10.4 fL Normal 9.5-13.[address] [facility] Comment on above: Performed By: #### C BC #### [facility] [address] [place] [address] Dr. Christos Richardson PLT 287 103/ul Normal 150-450 [facility] Comment on above: Performed By: #### C BC #### [facility] [address] [address] [address] Christos Richardson RBC 4.45 106/ul Normal 4.20-5.[address] [facility] Comment on above: Performed By: #### C BC #### [facility] [address] [address] [address] Christos Richardson WBC 6.1 103/ul Normal 4.0-11.[address] [facility] Comment on above: Performed By: #### C BC #### [facility] [address] [address] [address] Christos Richardson FREE THYROXINE INDEX T7on FTI 2.00 Normal 1.30-4.[address] [facility] Comment on above: Performed By: #### C MP, T7, LIPID, TSH ####[facility] [address] [address]DrEstela Richardson T3U 35.0 % Normal 30.0-39.[address] [facility] Comment on above: Performed By: #### C MP, T7, LIPID, TSH ####[facility] [address] [address]DrEstela Richardson T4 [Mass/Vol] 5.70 ug/dL Normal 4.80-13.90 [facility] Comment on above: Performed By: #### C MP, T7, LIPID, TSH ####[facility] [address] [address]DrEstela Richardson GLYCOHEMOGLOBIN A1Con 2021 ADA RECOMMENDATION SEE BELOW Normal [facility] Comment on above: Result Comment: ADA RECOMMENDED LIMIT 4.0 - 6.0 ADA THERAPEUTIC TARGET < 7.0 ACTION SUGGESTED > 7.0 Performed By: #### A 1C ####[facility] [address] [address]DrEstela Richardson Glucose [Mass/Vol] 114 mg/dL Normal [facility] Comment on above: Performed By: #### A 1C ####[facility] [address] [address]Dr. Christos Richardson HbA1c (Bld) [Mass fraction] 5.6 % Normal 4.5-6.[address] [facility] Comment on above: Performed By: #### A 1C ####[facility] [address] [address]Dr. Christos Richardson IRONon 01-08-2022 Iron [Mass/Vol] 100.0 ug/dL Normal 50.0-170.0 [facility] Comment on above: Performed By: #### I BLANCO ####[facility] [address] [address]Dr. Christos Richardson LIPID PROFILEon 01-08-2022 CHOL-HDL RATIO NORM SEE BELOW Normal [facility] Comment on above: Result Comment: 3.3 - 4.4 LOW RISK 4.4 - 7.1 AVERAGE RISK 7.1 - 11.0 MODERATE RISK >11.0 HIGH RISK Performed By: #### C MP, T7, LIPID, TSH ####[facility] [address] [address]Dr. Christos Richardson Cholesterol [Mass/Vol] 187 mg/dL Normal <=200 [facility] Comment on above: Performed By: #### C MP, T7, LIPID, TSH ####[facility] [address] [place] [address]Dr. Christos Richardson Cholesterol in HDL [Mass/Vol] 63 mg/dL Critically high 40-[address] [facility] Comment on above: Performed By: #### C MP, T7, LIPID, TSH ####[facility] [address] [address]Dr. Christos Richardson Cholesterol in LDL [Mass/Vol] 110.8 mg/dL Normal [facility] Comment on above: Performed By: #### C MP, T7, LIPID, TSH ####[facility] [address] [address]Dr. Christos Richardson Cholesterol.total/Kylee sterol in HDL [Mass ratio] 3.0 {ratio} Normal [facility] Comment on above: Performed By: #### C MP, T7, LIPID, TSH ####[facility] [address] [address]Dr. Christos Richardson HDL NORMAL > or = 60 mg/dl - LOW CARDIOVASCULAR RISK <40 mg/dl - HIGH CARDIOVASCULAR RISK Normal [facility] Comment on above: Performed By: #### C MP, T7, LIPID, TSH ####[facility] [address] [address]Dr. Christos Richardson LDL CALC NORMAL SEE BELOW Normal [facility] Comment on above: Result Comment: <100 mg/dl OPTIMAL 100 - 129 mg/dl NEAR OR ABOVE OPTIMAL 130 - 159 mg/dl BORDERLINE HIGH 160 - 189 mg/dl HIGH >190 mg/dl VERY HIGH Performed By: #### C MP, T7, LIPID, TSH ####[facility] [address] [address]Dr. Christos Richardson Triglyceride [Mass/Vol] 66 mg/dL Normal <=150 T [facility] Comment on above: Performed By: #### C MP, T7, LIPID, TSH ####[facility] [address] [address]Dr. Christos Richardson VLDL CALC 13.2 mg/dL Normal [facility] Comment on above: Performed By: #### C MP, T7, LIPID, TSH ####[facility] [address] [address]Dr. Christos Richardson PROF 14(COMP METB)on 022 Albumin [Mass/Vol] 3.4 g/dL Normal 3.4-5.0 [facility] Comment on above: Performed By: #### C MP, T7, LIPID, TSH ####[facility] [address] [address]Dr. Christos Richardson Albumin/Globulin [Mass ratio] 0.9 {ratio} Normal [facility] Comment on above: Performed By: #### C MP, T7, LIPID, TSH ####[facility] [address] [address]Dr. Christos Richardson ALP [Catalytic activity/Vol] 79 U/L Normal 46-[address] [facility] Comment on above: Performed By: #### C MP, T7, LIPID, TSH ####[facility] [address] [address]Dr. Christos Richardson ALT [Catalytic activity/Vol] 22 U/L Normal 14-[address] [facility] Comment on above: Performed By: #### C MP, T7, LIPID, TSH ####[facility] [address] [address]Dr. Christos Richardson Anion gap [Moles/Vol] 11.5 mmol/L Normal [facility] Comment on above: Performed By: #### C MP, T7, LIPID, TSH ####[facility] [address] [address]Dr. Christos Richardson AST [Catalytic activity/Vol] 16 U/L Normal 15-[address] [facility] Comment on above: Performed By: #### C MP, T7, LIPID, TSH ####[facility] [address] [address]Dr. Christos Richardson Bilirubin [Mass/Vol] 0.3 mg/dL Normal 0.2-1.[address] [facility] Comment on above: Performed By: #### C MP, T7, LIPID, TSH ####[facility] [address] [place] [address] [address]Dr. Christos Richardson Calcium [Mass/Vol] 9.1 mg/dL Normal 8.5-10.1 [facility] Comment on above: Performed By: #### C MP, T7, LIPID, TSH ####[facility] [address] [address]Dr. Christos Richardson Chloride [Moles/Vol] 106 mmol/L Normal 98-[address] [facility] Comment on above: Performed By: #### C MP, T7, LIPID, TSH ####[facility] [address] [address]Dr. Christos Richardson CO2 [Moles/Vol] 27.7 mmol/L Normal 21.0-32.0 [facility] Comment on above: Performed By: #### C MP, T7, LIPID, TSH ####[facility] [address] [address]Dr. Christos Richardson Creatinine [Mass/Vol] 0.75 mg/dL Normal 0.55-1.[address] [facility] Comment on above: Performed By: #### C MP, T7, LIPID, TSH ####[facility] [address] [address]Dr. Christos Richardson EGFR-AF SAMMARINESE >60 Normal >=60 [facility] Comment on above: Performed By: #### C MP, T7, LIPID, TSH ####[facility] [address] [address]Dr. Christos Richardson EGFR-NON AF SAMMARINESE >60 Normal >=60 [facility] Comment on above: Performed By: #### C MP, T7, LIPID, TSH ####[facility] [facility] [id number] [place] [address]Dr. Christos Richardson Globulin (S) [Mass/Vol] 3.9 g/dL Normal T [facility] Comment on above: Performed By: #### C MP, T7, LIPID, TSH ####[facility] [id number] [place] [address]Dr. Christos Richardson Glucose [Mass/Vol] 95 mg/dL Normal 74-106 [facility] Comment on above: Performed By: #### C MP, T7, LIPID, TSH ####[facility] [address] [place] [address]Dr. Devoramarissa Richardson Potassium [Moles/Vol] 4.2 mmol/L Normal 3.5-5.1 [facility] Comment on above: Performed By: #### C MP, T7, LIPID, TSH ####[facility] [address] [place] [address]Dr. Devoramarissa Richardson Protein [Mass/Vol] 7.3 g/dL Normal 6.4-8.2 [facility] Comment on above: Performed By: #### C MP, T7, LIPID, TSH ####[facility] [address] [place] [address]Dr. Christos Richardson Sodium [Moles/Vol] 141 mmol/L Normal 136-145 [facility] Comment on above: Performed By: #### C MP, T7, LIPID, TSH ####[facility] [address] [place], [place] [address]Ot. Christos Richardson Urea nitrogen [Mass/Vol] 15.0 mg/dL Normal 7.0-18.[address] [facility] Comment on above: Performed By: #### C MP, T7, LIPID, TSH ####[facility] [address] [place], [place] [address]Me. Christos Richardson Urea nitrogen/Creatinine [Mass ratio] 20.0 mg/mg Normal [facility] Comment on above: Performed By: #### C MP, T7, LIPID, TSH ####[facility] [address] [place], [place] [address]Yb. Christos Richardson TSHon 01-08-2022 TSH 3.880 uIU/mL Critically high 0.358-3.740 [facility] Comment on above: Performed By: #### C MP, T7, LIPID, TSH ####[facility] [address] [place] [id number]. Christos Richardson HIP LEFT 1 OR 2 VWS WITH PEL VISon 05-29-2021 HIP LEFT 1 OR 2 VWS WITH PELVIS [facility] Department of Radiology [address] [place] [id number] Patient Name: BRIE EAGLE : 1955 [...] prosthesis. Electronically signed: Eder Crowder. Transcribed by: [email or web address], User Resident: EDER CROWDER Electronically Signed by: EDER CROWDER @ 05/30/2021 12:27 PM I personally read this/these film(s) with this resident Normal The [facility] Comment on above: Order Comment: evalu ate Vital Signs Date Time Vital Sign Value Performing Clinician Facility 09-20-2024 12:50-0400 Body height 161.3 cm Brian James MD [facility] 09-20-2024 12:50-0400 Body mass index (BMI) [Ratio] 30.69 kg/m2 Brian James MD Work Phone[facility] 09-20-2024 12:50-0400 Body weight 79.83 kg Brian James MD Work Phone: [facility] 06-14-2023 09:30-0500 Body height 162.56 cm Sarah Sargent Other [facility] Other 06-14-2023 09:30-0500 Body mass index (BMI) [Ratio] 30.65 kg/m2 Sarah Sargent Other [facility] Other 06-14-2023 09:30-0500 Body temperature 98.8 [degF] Sarah Sargent Other [facility] Other 06-14-2023 09:30-0500 Body weight 81.01 kg Sarah Sargent Other [facility] Other 06-14-2023 09:30-0500 Diastolic blood pressure 67 mm[Hg] Sarah Sargent Other [facility] Other 06-14-2023 09:30-0500 Respiratory rate 16 /min Sarah Sargent Other [facility] Other 06-14-2023 09:30-0500 SaO2% (BldA) [Mass fraction] 96 % Sarah Sargent Other [facility] Other 06-14-2023 09:30-0500 Systolic blood pressure 129 mm[Hg] Sarah Sargent Other [facility] Other 09-10-2022 15:17-0400 Blood Pressure Location Lui BERNSTEINL [facility] [place] 09-10-2022 15:17-0400 Diastolic blood pressure 64 mm[Hg] Lui BERNSTEINL [facility] [place] 09-10-2022 15:17-0400 Heart rate 72 /min Lui BERNSTEINL [facility] [place] 09-10-2022 15:17-0400 Respiratory rate 16 /min Lui BERNSTEINL [facility] [place] 09-10-2022 15:17-0400 Systolic blood pressure 138 mm[Hg] Lui BERNSTEINL [facility] [place] 11-12-2021 17:50-0400 Body height 162.56 cm Olivia Dean Other [facility] Other 11-12-2021 17:50-0400 Body mass index (BMI) [Ratio] 27.46 kg/m2 Olivia Dean Other [facility] Other 11-12-2021 17:50-0400 Body temperature 97.8 [degF] Olivia Dean Other [facility] Other 11-12-2021 17:50-0400 Body weight 72.58 kg Olivia Dean Other [facility] Other 11-12-2021 17:50-0400 Diastolic blood pressure 59 mm[Hg] Olivia Mclaughlinmond Other [facility] Other 11-12-2021 17:50-0400 Respiratory rate 16 /min Olivia Dean Other [facility] Other 11-12-2021 17:50-0400 SaO2% (BldA) [Mass fraction] 98 % Olivia Dean Other [facility] Other 11-12-2021 17:50-0400 Systolic blood pressure 130 mm[Hg] Olivia Dianne Other [facility] Other Encounters Encounter Date Encounter Type Care Provider Facility Start: 09-20-2024 End: 09-20-2024 Office outpatient new 20 minutes Brian [facility] MD [facility] Comment on above: Aftercare following left hip joint replacement surgery (Primary Dx) Start: 09-20-2024 End: 09-20-[address] [facility] Start: 08-29-2024 End: 08-29-2024 ambulatory EUGENIO H TIMMIS Not Available Start: 03-09-2024 End: 03-09-2024 Patient encounter procedure MD Aretha Brewster Work Phone: [facility] [address] Work Phone: Start: 03-09-2024 End: 03-09-2024 ambulatory MD Aretha Brewster Work Phone: [facility] Work Phone: Start: 01-27-2024 End: 01-27-2024 ambulatory EUGENIO H TIMMIS Not Available Start: 01-04-2024 End: 01-04-2024 ambulatory EUGENIO H TIMMIS Not Available Start: 09-01-2023 End: 09-01-2023 ambulatory EUGENIO H TIMMIS Not Available Start: 06-14-2023 End: 06-14-2023 ambulatory Sarah Sargent Other [facility] Other Start: 06-14-2023 Office outpatient vi sit [address] [facility] Start: 10-01-2022 End: 10-02-[address] LUI GAMINO . Facility:[facility] Start: 09-10-2022 End: 09-11-2022 ambulatory Lui GAMINO Facility:[facility] Start: 09-10-2022 End: 09-10-2022 Patient encounter procedure Lui GAMINO [facility] Start: 08-06-2022 ambulatory Lui GAMINO Facility:[facility] Start: 06-23-[address] LUI GAMINO . Facil ity:[facility] Start: 05-15-2022 End: 05-16-2022 ambulatory TIMMY TINSLEY [facility] Start: 04-28-2022 End: 04-29-[address] ARETHA BREWSTER . Facility:[facility] Start: 04-23-2022 End: 04-24-[address] ARETHA BREWSTER . Facility:[facility] Start: 04-10-2022 End: 04-11-[address] ARETHA BREWSTER . Facility:[facility] Start: 03-24-2022 End: 03-24-2022 ambulatory JESSICA MUKHERJEE . Facility:[facility] Start: 01-14-2022 Encounter for genera l adult medical examination without abnormal findings DR ARETHA BREWSTER . [facility] Start: 01-08-2022 End: 01-09-[address] ARETHA BREWSTER . Facility:[facility] Start: 01-08-2022 End: 01-09-2022 Encounter for general adult medical examination without abnormal findings DR ARETHA BREWSTER . Facility:[facility] Start: 11-12-2021 End: 11-12-2021 ambulatory Olivia Dean Other [facility] Other Start: 11-12-2021 Office outpatient vi sit [address] [facility] Procedures Date Procedure Procedure Detail Performing Clinician Arthroscopy of knee Lui NILL Colonoscopy Lui NILL Colonoscopy Lui NILL Dilatation of esophageal stricture Lui NILL Esophagogastroduodenoscopy M ichsunitha NILL Esophagogastroduodenoscopy M ichsunitha NILL Ligation of fallopian tube M ichsunitha NILL Reduction mammoplasty Michae l NILL Repair of hip Lui NILL Plan of Treatment Date Care Activity Detail Author Start: 09-25-2027 DTaP,Tdap and Td Vaccines (5 - Td or Tdap) DTaP,Tdap and Td Vaccines (5 - Td or Tdap) [facility] [employer] [facility] Start: 09-20-2025 Adult BMI Screening Adult BMI Screening [facility] Start: 09-20-2025 Tobacco Screening Tobacco Screening [facility] Start: 02-13-2025 Influenza vaccination Influenza Vaccine [facility] Start: 03-09-2024 Hepatitis B core antibody measurement [facility] Start: 03-09-2024 [facility] Start: 02-14-2024 COVID-19 Vaccine ( season) COVID-19 Vaccine ( season) [facility] Start: 2021 Fall Risk Screening Fall Risk Screening [facility] Start: 05-11-2018 Administration of varicella zoster vaccine Zoster (Shingles) Vaccine (2 of 3) [facility] Start: 1974 Adult BMI Follow Up Plan Adult BMI Follow Up Plan [facility] Start: 1968 Depression Screening Depression Screening [facility] 24 hour urine measurement [facility] Albumin [Mass/volume ] in Serum or Plasma [facility] Albumin/Globulin ratio [facility] Aldolase measurement [facility] Chromatin Ab [Units/volume] in Serum or Plasma [facility] Electrophoresis: [id number]-[id number] [facility] Electrophoresis: [id number]-3-epmhwflx [facility] Electrophoresis: beta-globulin [facility] Electrophoresis: cuate ma globulin [facility] Globulin [Mass/volum e] in Serum [facility] Hepatitis B virus ortiz rface Ab [Presence] in Serum [facility] Hepatitis B virus ortiz rface Ag [Presence] in Serum or Plasma by Immunoassay [facility] Hepatitis C virus Ig G Ab [Presence] in Serum or Plasma by Immunoassay [facility] Homogenous nuclear A b pattern [Titer] in Serum [facility] Immunofixation for Urine Fir [facility] Interferon gamma assay [facility] Measurement of monoc lonal protein concentration [facility] Mycobacterium tuberc ulosis stimulated gamma interferon [Interpretation] in Blood Qualitative [facility] Mycobacterium tuberc ulosis stimulated gamma interferon release by CD4+ and CD8+ T-cells [Units/volume] corrected for background in Blood [facility] Mycobacterium tuberc ulosis tuberculin stimulated gamma interferon [Presence] in Blood [facility] Nuclear Ab [Titer] i n Serum [facility] Protein [Mass/volume ] in Serum or Plasma [facility] Protein [Mass/volume ] in Urine [facility] Reagin Ab [Presence] in Serum by RPR [facility] Immunizations Immunization Date Immunization Notes Care Provider Fa cili 05-04-2023 influenza virus vaccine, unspecified formulation Brian James MD Work Phone: [facility] 04-15-2022 influenza virus vaccine, unspecified formulation Lui GAMINO [facility] [place] 04-14-2022 SARS-CoV-2 (COVID-19 ) [id number] Lui GAMINO [facility] [place] 02-10-2022 SARS-CoV-2 mRNA (vkayzqbeldz-jmnu-ucaqp se) vaccine Lui GAMINO [facility] [place] 08-26-2021 SARS-CoV-2 mRNA (sdbemfirull-istj-vijgn se) vaccine Lui GAMINO [facility] [place] 02-25-2021 SARS-CoV-2 (COVID-19 ) mRNA BNT-162b2 vax Lui BERNSTEINJose [facility] [place] 02-04-2021 SARS-CoV-2 (COVID-19 ) mRNA BNT-162b2 vax Lui BERNSTEINL [facility] [place] 03-16-2018 zoster vaccine, unspecified formulation Brian James MD Work Phone: [facility] Payers Date Payer Category Payer Medicare HMO MEDICARE HMO/PPO - GENERIC PLAN [id number] 2024 Self-pay 1958 Medicare [id number] 1955 Unknown [id number] 2.16.840.1.305469.3.579. 2.593 1955 Unknown [id number] 2.16.840.1.438499.3.579. 2.593 1955 Unknown [id number] 2.16.840.1.685328.3.579. 2.593 1955 Unknown [id number] 2.16.840.1.631766.3.579. 2.593 1955 Unknown [id number] 2.16.840.1.436030.3.579. 2.593 1956 Unknown [id number] 2.16.840.1.646210.3.579. 2.593 1955 Unknown [id number] 2.16.840.1.408243.3.579. 2.593 1955 Unknown [id number] 2.16.840.1.392213.3.579. 2.727 1955 Unknown [id number] 2.16.840.1.125701.3.579. 2.727 1955 Unknown [id number] 2.16.840.1.326887.3.579. 2.1259 1955 Unknown [id number] 2.16.840.1.675840.3.579. 2.1259 1956 Unknown [id number] 2.16.840.1.752566.3.579. 2.1259 1956 Unknown [id number] 2.16.840.1.585026.3.579. 2.1259 1955 Unknown [id number] 2.16.840.1.532836.3.579. 2.1286 1955 Unknown [id number] 2.16.840.1.437098.3.579. 2.1286 Private Health Insurance [id number] 2.16.840.1.722344.19 Unknown [id number] 2.16.840.1.571742.3.579. 2.531 Social History Date Type Detail Facility Start: 09-20-2024 Sex Assigned At F [facility] Start: 09-10-2022 End: 09-20-2024 Tobacco smoking status Ex-smoker (finding) [facility] [place] Tobacco smoking status Never [facility] Start: 1955 Sex Assigned At Female F [facility] History of tobacco use Current smoker [facility] History of tobacco use Cigarette Smoker [facility] History of tobacco use Passive smoker [facility] Start: 09-20-2024 Tobacco use and exposure Smokeless tobacco non-user [facility] Start: 09-20-2024 Alcoholic beverage intake Ex-drinker (finding) [facility] Start: 09-20-2024 History of Social function [facility] Start: 08-11-2024 Sex Female (finding) [facility] Start: 08-11-2024 Gender identity Identifies as female gender (finding) [facility] Start: 08-11-2024 Sexual orientation Heterosexual (fin ding) [facility] Functional Status Date Assessment Result Facility 09-10-2022 Functional Status N/A [facility] Clinical Notes 11-12-2021 to 09-20-2024 Brian James MD - 09/20/2024 1:00 PM EDT Note Date & Type Note Facility 09-20-2024 History of Present illness Narrative Orthopaedic Surgery Outpatient Visit Note Encounter Date: 09/20/2024 Patient: Brie Eagle 1955 PCP No primary care provider on file. CC: Chief Complaint Patient presents with Left Hip - New Patient ACETYLENE TORCH BURNER re-est Left THR 10/11/20 [facility], just a follow up no pain HPI: Brie Eagle is a 68 y.o. female. This is a patient with a left hip replacement about 4 years ago doing just fine with that side. She has had a number of issues that she had to deal with so she is a little delayed in getting back in for repeat check. The right hip is not really bothering her too much. She has known osteoarthritis and that is side went hurts her once in a while but she goes hiking in has full activity without much trouble. She has an occasional pain in her left hip when hiking. Past Medical History: Past Medical History: Diagnosis Date Hip arthrosis Past Surgical History: Procedure Laterality Date CYST REMOVAL JOINT REPLACEMENT KNEE ARTHROSCOPY REDUCTION MAMMAPLASTY Medications: Current Outpatient Medications: multivitamin with minerals tablet, Take 1 tablet by mouth in the morning., Disp: , Rfl: pantoprazole (PROTONIX) 40 mg EC tablet, Take 1 tablet (40 mg total) by mouth every morning before breakfast., Disp: , Rfl: Allergies and adverse reactions: Allergies Allergen Reactions Erythromycin GI Disturbance Other Reaction(s): GI upset Latex Dermatitis and Hives Other Reaction(s): Not available Social History: Social History Socioeconomic History Marital status: Spouse name: Not on file Number of children: Not on file Years of education: Not on file Highest education level: Not on file Occupational History Not on file Tobacco Use Smoking status: Former Types: Cigarettes Passive exposure: Past Smokeless tobacco: Never Vaping Use Vaping status: Never Used Substance and Sexual Activity Alcohol use: Not Currently Drug use: Never Sexual activity: Not on file Other Topics Concern Not on file Social History Narrative Not on file Social Drivers of Health Financial Resource Strain: Low Risk (05/15/2022) Received from [facility] Overall Financial Resource Strain (CARDIA) Difficulty of Paying Living Expenses: Not hard at all Food Insecurity: No Food Insecurity (05/15/2022) Received from [facility] Hunger Vital Sign Worried About Running Out of Food in the Last Year: Never true Ran Out of Food in the Last Year: Never true Transportation Needs: No Transportation Needs (05/15/2022) Received from [facility] PRAPARE - Transportation Lack of Transportation (Medical): No Lack of Transportation (Non-Medical): No Physical Activity: Insufficiently Active (05/15/2022) Received from [facility] Exercise Vital Sign Days of Exercise per Week: 2 days Minutes of Exercise per Session: 60 min Stress: No Stress Concern Present (05/15/2022) Received from [facility] [place] [facility] [employer] [facility] - Occupational Stress Questionnaire Feeling of Stress : Not at all Social Connections: Moderately Integrated (05/15/2022) Received from [facility] Social Connection and Isolation Panel [NHANES] Frequency of Communication with Friends and Family: Twice a week Frequency of Social Gatherings with Friends and Family: Once a week Attends Anabaptist Services: More than 4 times per year Active Member of Clubs or Organizations: No Attends Club or Organization Meetings: Never Marital Status: Interpersonal Safety: Unknown (08/06/2023) Received from The [facility] Safety & Environment Fear of Current or Ex-Partner: Not on file Emotionally Abused: Not on file Physically Abused: Not on file Sexually Abused: Not on file Physically or Sexually Abused: Not on file Housing Instability: Low Risk (05/15/2022) Received from [facility] Housing Stability Vital Sign Unable to Pay for Housing in the Last Year: No Number of Places Lived in the Last Year: 1 Unstable Housing in the Last Year: No Family History: History reviewed. No pertinent family history. ROS: Constitutional No fever No chills Musculoskeletal No joint pain Objective: General Appearance : Well appearing Comfortable Orientation: Oriented to Person Place Time Mood and Affect: Normal Gait: Normal Right Left Hip exam Internal rotation: 20 External rotation: 30 No pain with range of motion Internal rotation: 20 External rotation: 30 No pain with range of motion Knee exam Extension: 0 Flexion: 120 Effusion: Extension: 0 Flexion: 120 Effusion: Cardiovascular Posterior tibialis pulse is 2+ to palpation. The foot is warm to touch. Posterior tibialis pulse is 2+ to palpation. The foot is warm to touch. Sensation The superficial peroneal and tibial nerve distributions have normal sensation to light touch. The superficial peroneal and tibial nerve distributions have normal sensation to light touch Strength Hip flexion, knee extension, and ankle dorsiflexion are 5/5. Hip flexion, knee extension, and ankle dorsiflexion are 5/5. Labs: No results found for: HGB No results found for: CREATININE No results found for: CRP No results found for: SEDRATE No results found for: CULTURE Imaging: Radiographs of the left hip and right hip were reviewed. Findings: Right hip shows qjiv-al-szwy joint space narrowing with osteophyte formation. The left hip shows acceptable total hip arthroplasty Assessment: 1. Aftercare following left hip joint replacement surgery Plan: She is asymptomatic right hip osteoarthritis. I recommend just routine follow up in the future. If her right hip starts hurting her worse than she knows with a diagnosis most likely will be and she would have to come in and be checked on. She can continue with her left hip following up every 5 or 10 years for repeat x-ray. documented in this encounter [facility] [employer] 06-14-2023 Evaluation note Encounter Date Diagnosis Assessment Notes May, Nasal congestion (ICD-10 - R09.81) May, RSV infection (ICD-10 - B33.8) Advised patient that RSV PCR test was positive. COVID/influenza A/B PCR test negative. Discussed diagnosis with patients mother in detail. Advised that this is a viral illness and antibiotics are not indicated. Finish previous rx of steroids. Use rx of Pierz as directed. Discussed importance of adequate hydration [...] plan. Patient sent home in stable condition. [employer] Other [id number] NoteOPERATIVE NOTE OPERATION DATE: 10/01/2022 ADDENDUM: Please add to the operative report - Follow up screening colonoscopy should be in 10 years.[id number] NoteOPERATIVE NOTE OPERATION DATE: 10/01/2022 PREOPERATIVE DIAGNOSIS: [...] room in good condition. CC: Aretha Brewster M.D.[facility]03-29-2023 NoteChief Complaint consultation for screening colonoscopy [...] and Sister. Immunizations Vaccin (more content not included)...[facility]Result Comment: Electronically Signed By: ТАТЬЯНА HERNANDEZ, Lui Moeller\Date and Time Signed: 09/10/22 16:09 [id number] NoteOrthopaedic Surgery Outpatient Visit Note Encounter Date: [...] incisional issues. Follow Up: No follow-ups on file.[facility]05-31-2022 Evaluation note* Encounter Date Diagnosis Assessment [...] nonvenomous arthropods, initial encounter (ICD-10 - W57.XXXA) [facility] Other Evaluation + Plan note No data available for this section General Surgery [employer] Evaluation noteNo assessment information available [facility] Work Phone: Evaluation note* Diagnosis Aftercare following left hip joint replacement surgery- Primary documented in this encounter [employer] general Narrative - Reported* Type Description Date Medical History arthritis Surgical History pyloniadal cyst Surgical History both knee Surgical History breast reduction Surgical History tubal ligation Surgical History Total hip replacement Hospitalization History see above surg hx [facility] Other History general Narrative - Reported* Type Description Date Medical History arthritis Medical History GERD Surgical History pyloniadal cyst Surgical History both knee Surgical History breast reduction Surgical History tubal ligation Surgical History Total hip replacement Hospitalization History see above surg [employer] Other Hospital Discharge instructions No data available for this section General Surgery [employer] InstructionsNot on filedocumented in this encounter [employer] note No data available for this section General Surgery [employer] Summary Purpose Family History No Family History [...] and content) DATE CREATED AUTHOR 10/25/2021 [facility] DATE CREATED AUTHOR AUTHOR'S ORGANIZ ATION 05/17/2022 [facility] DATE CREATED AUTHOR AUTHOR'S ORGANIZ ATION 10/10/2022 [facility] DATE CREATED AUTHOR AUTHOR'S ORGANIZ ATION 10/10/2022 [facility] DATE CREATED AUTHOR AUTHOR'S ORGANIZ ATION 03/20/2024 [facility] DATE CREATED AUTHOR AUTHOR'S ORGANIZ ATION 08/31/2024 [facility] EPIC DATE CREATED AUTHOR AUTHOR'S ORGANIZ ATION 09/22/2024 [facility] REASON FOR VISIT (unrecogniz ed section and content) Reason Comments New Patient ACETYLENE TORCH BURNER re-est Left THR [facility], just a follow up no pain Patient Care team informatio n (unrecognized section [...] BE BASED ON THE PRIMARY CLINICAL RECORDS. [facility]. provides no warranty or guarantee of the accuracy or completeness of information in this document.
== END 2025-01-09 15:35 | disposition home or self-care (01) ==
LOC: LAB 15:35
PROVIDERS: PCP Family Medicine; Visit Provider Family Medicine
DX: R10.9 Unspecified abdominal pain (principal)
CPT/HCPCS: 81001; 87086

== ENCOUNTER 2025-01-19 11:42 | Outpatient (OUT) | payer MEDICARE, SELFPAY ==
--- OUTSIDE RECORDS SUMMARY | 2025-01-09 04:04 | XMS_ITS ---
Author Organization [facility] [place] Address [address] [place] [address] Care Team Providers Care Bottom Cager Name Role Phone Marco Brewster Primary Care Provider [phone] REASON FOR VISIT uti Encounters Encounter Location Date Provider Diagnosis [facility] [address] [facility] [place] [address] 01/09/2025 Marco Brewster Flank pain R10.9 Assessments Encounter Date Diagnosis (ICD Code) Assessment Notes Treatment Notes Treatment Clinical Notes Section Notes 01/09/2025 Flank pain (ICD-10 - R10.9) Plan Of Treatment Pending Test Test Name Order Date UA (URINALYSIS, COMPLETE) 01/09/2025 Urine Culture 01/09/2025 Progress Notes * Brie DUMONT KDOB:[birth year] (69 yo F)Acc No.[id number]:01/09/2025 Patient: Bethany ELIZABETHNORMA Brie Schuster :1955 A ge:69 Y S ex:Female Address:[address] [place] [address] [place] [address] Subjective: * Chief Complaints: * U ti * Medical History: * Surgical History: * Hospitalization/Major Diagno stic Procedure: * Medications: Objective: * Vitals: * Physical Examination: Assessment: * Assessment: 1. F lank pain - R10.9 (Primary) Plan: * Treatment: * Procedure Codes: * true * Date: Generated for Printi ng/Faxing/eTransmitting on: 0 01/19/2025 11:44 AM EDT
--- OUTSIDE RECORDS SUMMARY | 2025-01-09 13:01 | XMS_ITS ---
Author Organization [facility] [place] Address [address] [place] [address] Care Team Providers Care Steam Press Operator Name Role Phone NeyMarco Primary Care Provider REASON FOR VISIT UTI Medications Medication SIG (Take, Route, Frequency, Duration) Notes Start Date End Date Status Cipro 500 MG 1 tablet Orally ever y 12 hrs for 10 days 01/10/2025 Active Encounters Encounter Location Date Provider Diagnosis [facility] [address] [place] [address] 01/09/2025 Marco Rakeshjayant Plan Of Treatment Medication Medication Name Sig Start Date Stop Date Notes Cipro 500 MG 1 tablet Orally every 12 hrs for 10 days 12/14 Progress Notes * Brie DUMONT KDOB:[birth year] (69 yo F)Acc No.[id number]:01/09/2025 Patient: Brie TAYLOR :1955 A ge:69 Y S ex:Female Address:[address] [place] [address] [place] [address] * Refills Start Cipro Tablet, 500 MG, Orally, 20 Tablet, 1 tablet, every 12 hrs, 10 days, Refills=0 * true * Date: Generated for Vali ng/Faarmanig/eTransmitting on: 0 01/19/2025 11:44 AM EDT
--- OUTSIDE RECORDS SUMMARY | 2025-01-19 04:04 | XMS_ITS ---
Author Organization [facility] in [place] Address [address] [place] [address] Care Team Providers Care Nail Cutter Name Role Phone Marco Brewster Primary Care Provider [phone] REASON FOR VISIT UTI update- SEE NOTE Encounters Encounter Location Date Provider Diagnosis [facility] [address] [place] [address] 01/19/2025 Marco Brewster UTI (urinary tract infection) N39.0 Assessments Encounter Date Diagnosis (ICD Code) Assessment Notes Treatment Notes Treatment Clinical Notes Section Notes 01/19/2025 UTI (urinary tract infection) (ICD-10 - N39.0) Plan Of Treatment Pending Test Test Name Order Date UA (URINALYSIS, COMPLETE) 01/19/2025 Urine Culture 01/19/2025 URINE MICROSCOPIC ONLY 01/19/2025 Progress Notes * Brie DUMONT KDOB:[birth year] (69 yo F)Acc No.[id number]:01/19/2025 UNLOCKED PROGRESS NOTE Patient: Brie TAYLOR :1955 A ge:69 Y S ex:Female [facility] [place] [address] Subjective: * Chief Complaints: * U TI update- SEE NOTE * Medical History: * Surgical History: * Hospitalization/Major Diagno stic Procedure: * Medications: Objective: * Vitals: * Physical Examination: Assessment: * Assessment: 1. U TI (urinary tract infection) - N39.0 (Primary) Plan: * Treatment: * Procedure Codes: * * Date:
--- OUTSIDE RECORDS SUMMARY | 2025-01-19 11:44 | XMS_ITS | Clinical Summary ---
Author Organization [facility] Address [id number] [address] [place] [address] Care Team Providers Care Residential Solar Sales Consultant Name Role Phone Unavailable Primary Care Provider [...] Active Active Problems No known active problems Social History Tobacco Use Types Packs/Day Years [...] 11/12/2017 Fall Risk Screening 2021 COVID-19 Vaccine (6 - 2023-2 5 season) 2024 04/14/2022, 02/10/2022, 08/26/2021, Additional history exists Influenza Vaccine 02/13/2025 05/04/2023, , 04/11/2021, Additional history exists Adult BMI Screening 09/20/2025 09/20/2024 Tobacco Screening 09/20/2025 09/20/2024 DTaP,Tdap and Td Vaccines (5 - Td or Tdap) 09/25/2027 09/24/2017, 04/23/2007, 05/06/2004, Additional history exists Medical Devices Not on file Insurance MEDICARE HMO/PPO - GENERIC PLAN
--- OUTSIDE RECORDS SUMMARY | 2025-01-19 11:44 | XMS_ITS | Encounter Summary ---
Author Organization [facility] Address [address] [place] [address] Care Team Providers Care Anesthesia Tech Name Role Phone Myron Brewster MD Primary Care Provider [phone] Encounter Details Date Type Department Care Team (Late st Contact Info) Description 01/12/2024 Clinisync Result Encounter [facility] External Department Unsolicited Eugenio Cervantes MD [address] [place] [address] Social History Tobacco Use Types [...] EDT Narrative 01/12/2024 11:00 AM EDT The [address] [address] [address] Scan Report Signed Patient: MERCEDES DUMONT MR#: [id number] : 1955 Acct:[id number] Age/Sex: 68 / F ADM Date: 01/11/24 Loc: CT Attending Dr: Eugenio Cervantes M.D. Ordering Physician: Eugenio Cervantes M.D. Date of Service: 01/11/24 Procedure(s): CT soft tissue neck w con Accession Number(s): [id number] cc: Myron Brewster M.D. [place] [address] Patient Name: MERCEDES DUMONT MRN: [facility]:[id number] date: 1955 Sex: F Assigned Patient Location: CT Current Patient Location: Accession/Order Number: [id number] Exam Date: 01/11/2024 13:24 Report Date: 01/12/2024 [...] Signed By: 01/12/24 1100 DD/ 1057 TD/TT: Oral Surgery Assistant: Procedure Note Radiology, Radiologist, MD - 01/12/[address] [place] [id number] Scan Report Signed Patient: MERCEDES DUMONT KMR#: [id number] : 1955cct:[id number] Age/Sex: 68 / FADM Date: 01/11/24 Loc: CT Attending Dr: Eugenio Cervantes M.D. Ordering Physician: Eugenio Cervantes M.D. Date of Service: 01/11/24 Procedure(s): CT soft tissue neck w con Accession Number(s): [id number] cc: Myron Brewster M.D. The [place] [id number] Patient Name: MERCEDES DUMONT MRN: [id number] date: 1955 Sex: F Assigned Patient Location: CT Current Patient Location: Accession/Order Number: [id number] Exam Date: 01/11/2024 13:24 Report Date: 01/12/2024 [...] M.D. Signed By:01/12/24 1100 DD/ 1057 TD/TT: Oral Surgery Assistant: us Eugenio Cervantes MD IMG CT PROCEDURES Final Resul t documented in this encounter Visit Diagnoses Not on filedocumented in this encounter Care Teams Anesthesia Tech Relationship Specialty Start Date End Date Myron Brewster MD PCP - General Family Medicine 08/18/23 documented as of this encounter
--- OUTSIDE RECORDS SUMMARY | 2025-01-19 11:44 | XMS_ITS | Encounter Summary ---
Author Organization [facility] Address [address] [place] [address] Care Team Providers Care Car Varnisher Name Role Phone Myron Brewster MD Primary Care Provider [phone] Encounter Details Date Type Department Care Team (Late st Contact Info) Description 01/11/2024 Orders Only [facility] [address] [place] [address] Wendi Cervantes MD [address] [place] [address] Social History Tobacco Use Types Packs/Day Years [...] * [facility] (01/06/2024 7:18 AM EDT) us Wendi Cervantes MD LAB CHG PERFORMABLES Final Re sult documented in this encounter Visit Diagnoses Not on filedocumented in this encounter Care Teams Car Varnisher Relationship Specialty Start Date End Date Myron Brewster MD PCP - General Family Medicine 08/18/23 documented as of this encounter
--- OUTSIDE RECORDS SUMMARY | 2025-01-19 11:44 | XMS_ITS | Patient Health Record ---
Author Organization [facility] in [place] Address [address] [place] [address] Care Team Providers Care Healthcare Prof Name Role Phone Marco Brewster Primary Care Provider Allergies Allergen (clinical drug ingredient) Drug/Non Drug Allergy documented on EMR Reaction Allergy Type Onset Date Status Latex Latex (uncoded) contact dermatitis Allergy Active amoxicillin Amoxicillin rash Drug Allergy Act rosales erythromycin Erythromycin GI upset Drug Allergy A ctive Results Component Value Reference Range Notes XR chest 2V Reviewed date:03/13/2024 11:51:02 AM Interpretation: Performing Lab: Notes/Report: Source Facility: [place] [address] XRay Report Signed Patient: BRIE DUMONT MR#: [id number] : 1955 Acct:[id number] Age/Sex: 68 / F ADM Date: 03/11/24 Loc: RAD Attending Dr: GISELE ANTONY Ordering Physician: GISELE ANTONY Date of Service: 03/11/24 Procedure(s): XR chest 2V Accession Number(s): [id number] cc: Myron Brewster M.D.; GISELE ANTONY [place] [address] Patient Name: BRIE DUMONT MRN: [id number] date: 1955 Sex: F Assigned Patient Location: RAD Current Patient Location: Accession/Order Number: [id number] Exam Date: 03/11/2024 08:57 Report Date: 03/12/2024 05:29 At the request of: GISELE ANTONY Procedure: XR chest 2V EXAMINATION: XR chest 2V HISTORY: lymphadenopathy/sialoadenitis COMPARISON: No relevant comparison available. FINDINGS: LUNGS: Thin curvilinear stranding opacity within lateral left lung base. Right lung is clear. VASCULATURE: No increased pulmonary vasculature. PLEURA: No pneumothorax, effusion, or pleural thickening. CARDIAC: No cardiomegaly or cardiac silhouette abnormality. MEDIASTINUM: No visible mass or adenopathy. BONES: No fracture or visible bone lesion. OTHER: Negative. XR/XR chest 2V IMPRESSION: 1. Trace amount of lingular atelectasis versus infiltrates. Electronically authenticated by: ULISES CALDERON Date: 03/12/2024 05:29 Dictated By: Ulises Calderon M.D. Signed By: 03/12/24530 DD/ 8 TD/TT: Administrative Law Judge: [place] [address] XRay Report Signed Patient: BRIE DUMONT MR#: [id number] : 1955 Acct:[id number] Age/Sex: 68 / F ADM Date: 03/11/24 Loc: RAD Attending Dr: EDGARD ANTONY Ordering Physician: GISELE ANTONY Date of Service: 03/11/24 Procedure(s): XR leyla st 2V Accession Number(s): [id number] cc: Myron Brewster M.D. ; GISELE ANTONY [place] [address] Patient Name: BRIE DUMONT MRN: [id number] date: 1955 Sex: F Assigned Patient Location: [facility] Current Patient Location: Accession/Order Number: [id number] Exam Date: 03/11/2024 08:57 Report Date: 03/12/2024 05:29 At the request of: GISELE ANTONY Procedure: XR chest 2V EXAMINATION: XR ches t 2V HISTORY: lymphadenopathy/sialoa denitis COMPARISON: No relevant comparison available. FINDINGS: LUNGS: Thin curvilinear stranding opacity within lateral left lung base. Right lung is clear. VASCULATURE: No increased pulmonary vasculature. PLEURA: No pneumothorax, effusion, or pleural thickening. CARDIAC: No cardiomegaly or cardiac silhouette abnormality. MEDIASTINUM: No visible mass or adenopathy. BONES: No fracture o r visible bone lesion. OTHER: Negative. XR/XR chest 2V IMPRESSION: 1. Trace amount of lingular atelectasis versus infiltrates. Electronically authenticated by: ULISES CALDERON Date: 03/12/2024 05:29 Dictated By: Ulises Calderon M.D. Signed By: 03/12/24530 DD/ 8 TD/TT: Administrative Law Judge: MM tomosynthesis screening B I Reviewed date:05/04/2024 12:32:18 PM Interpretation: Performing Lab: Notes/Report: Source Facility: [place] [address] Mammography Report Signed Patient: BRIE DUMONT MR#: [id number] : 1955 Acct:[id number] Age/Sex: 68 / F ADM Date: 05/04/24 Loc: MAMMO Attending Dr: Myron Brewster M.D. Ordering Physician: Myron Brewster M.D. Results: Date of Service: 05/04/24 Follow Up: Procedure(s): MM tomosynthesis screening BI Accession Number(s): [id number] cc: Myron Brewster M.D. Patient Name: BRIE DUMONT MR#: [id number] : 1955 Exam Date: 05/04/2024 Ordering Doctor: DR Myron Brewster . RADIOLOGY REPORT PROCEDURE: MM TOMOSYNTHESIS SCREENING BI COMPARISON: MG MAMM SCREEN 3D ARCELIA CAD, 04/23/2022. MM TOMOSYNTHESIS SCREENING BI, 04/27/2023. INDICATIONS: Screening Calculator Name NCI Breast Cancer Risk Assessment Tool 5 Year Breast Cancer Risk Not Reported. Lifetime Breast Cancer Risk Not Reported. Personal Breast Cancer No Personal Ovarian Cancer No Treatments None Family Cancers None LOCATION: [facility] BREAST COMPOSITION: There are scattered areas of fibroglandular density. FINDINGS: DIAGNOSTIC CATEGORY 1--NEGATIVE. NO [...] PALPABLE LUMP SHOULD BE BIOPSIED. Dictated by: Aren Newby MD on 05/04/2024 at 10:57 Approved by: Aren Newby MD on 05/04/2024 at 10:58 Dictated By: Aren Newby M.D. Signed By: 05/04/24 1100 DD/ 1058 TD/TT: Administrative Law Judge: [place] [address] Mammography Report Signed Patient: BRIE DUMONT MR#: [id number] : 1955 Acct:[id number] Age/Sex: 68 / F ADM Date: 05/04/24 Loc: MAMMO Attending Dr: Per Brewster M.D. Ordering Physician: Myron Brewster M.D. Results: Date of Service: 05/04/24 Follow Up: Procedure(s): MM tomosynthesis screening BI Accession Number(s): [id number] cc: Myron Brewster M.D. Patient Name: BRIE DUMONT MR#: [id number] : 1955 Exam Date: 05/04/2024 Ordering Doctor: DR Myron Brewster . RADIOLOGY REPORT PROCEDURE: MM TOMOSYNTHESIS SCREENING BI COMPARISON: MG MAMM SCREEN 3D ARCELIA CAD, 04/23/2022. MM TOMOSYNTHESIS SCREENING BI, 04/27/2023. INDICATIONS: Screening Calculator Name NCI Breast Cancer Risk Assessment Tool 5 Year Breast Cancer Risk Not Reported. Lifetime Breast Canc er Risk Not Reported. Personal Breast Canc er No Personal Ovarian Cancer No Treatments None Family Cancers None LOCATION: [facility] BREAST COMPOSITION: There are scattered areas of fibroglandular density. FINDINGS: DIAGNOSTIC CATEGORY 1--NEGATIVE. NO CHANGE FROM COMPARISON ASSESSMENT. Scattered benign-appearing calcifications are present. Scattered benign-appearing lym ph nodes are present. RIGHT BREAST: No significant suspicious finding. LEFT BREAST: No significant suspicious finding. RECOMMENDATIONS: ROUTINE MAMMOGRAM AN D CLINICAL EVALUATION IN 12 MONTHS. PLEASE NOTE: A CHACHA L MAMMOGRAM DOES NOT EXCLUDE THE POSSIBILITY OF BREAST CANCER. A CLINICALLY SUSPICIOUS PALPABLE LUMP SHOULD BE BIOPSIED. Dictated by: Aren Newby MD on 05/04/2024 at 10:57 Approved by: Aren Newby MD on 05/04/2024 at 10:58 Dictated By: Aren Newby M.D. Signed By: 05/04/24 1100 DD/ 1058 TD/TT: Administrative Law Judge: [place] Reviewed date:05/17/2024 08:42:40 PM Interpretation: Performing Lab: Notes/Report: [facility] , Iron 104.0 50.0-170.0 ug/dL Performing Lab: see note - [facility] UA RANDOM W or MICROSCOPIC Reviewed date:01/09/2025 05:02:55 PM Interpretation: Performing Lab: Notes/Report: [facility] , Color Urine LT. YELLOW YELLOW Clarity Urine CLEAR CLEAR Specific [place] Urine 1.015 1.005-1.025 pH Urine 8.5 5.0-9.0 Protein Urine NEGATIVE NEG/TRACE mg/dL Glucose Urine UA NEGATIVE NEGATIVE mg/dL Bilirubin Urine NEGATIVE NEGATIVE Ketones Urine NEGATIVE NEGATIVE mg/dL Blood Urine NEGATIVE NEGATIVE Nitrite Urine NEGATIVE NEGATIVE Urobilinogen Urine 0.2 0.2-1.0 EU/dL Leukocyte Esterase Urine NEGATIVE NEGATIVE WBC Urine 2-5 NONE SEEN #/HPF RBC Urine 0-2 0-2 #/HPF Bacteria Urine MODERATE NONE SEEN #/HPF Mucus Urine NONE SEEN NONE SEEN Squamous Epithelial Cell Urine FEW NONE/RARE #/LPF Transitional Epi Cells Urine RARE NONE SEEN #/LPF Crystals Seen? None Seen None Seen #/HPF Cast Seen? NONE SEEN NONE SEEN #/LPF Performing Lab: see note ML - [facility] LB Urine Culture - [facility] Reviewed date:01/12/2025 12:56:27 PM Interpretation: Performing Lab: Notes/Report: [facility] , Urine Culture - [facility] See Below For Report Urine Culture - [facility] 15,000 colonies/ml mixed Urine Culture - [facility] bacterial skin contaminants Urine Culture - [facility] 15,000 colonies/ml mixed Urine Culture - FR 2 Days Urine Culture - FR 15,000 colonies/ml mixed Urine Culture - FR Urine Culture - FR 15,000 colonies/ml mixed Urine Culture - FR Testing performed a [facility] Urine Culture - [facility] 15,000 colonies/ml mixed Urine Culture - FR [address] [place] [address] Urine Culture - [facility] 15,000 colonies/ml mixed Performing Lab: see note ML - [facility] LB TSH Reviewed date:05/17/2024 08:42:40 PM Interpretation: Performing Lab: Notes/Report: [facility] , Thyroid Stimulating Hormone 4.292 0.358-3.740 uIU/mL Performing Lab: see note ML - [facility] LB T4 Reviewed date:05/17/2024 08:42:40 PM Interpretation: Performing Lab: Notes/Report: [facility] , T4 Thyroxine 6.00 4.80-13.90 ug/dL Performing Lab: see note ML - [facility] LB PROF 14(COMP METB) Reviewed date:05/17/2024 08:42:40 PM Interpretation: Performing Lab: Notes/Report: [facility] , Sodium 143 136-145 mmol/L Potassium 4.1 3.5-5.1 mmol/L Chloride 104 98-107 mmol/L Carbon Dioxide 29.8 21.0-32.0 mmol/L Anion Gap 13.3 Glucose 99 74-106 mg/dL Blood Urea Nitrogen 15.0 7.0-18.0 mg/dL Creatinine 0.97 0.55-1.02 mg/dL Estimated GFR ( Veronique >60 >=60 mL/min/1.73m 2 Estimated GFR (Non- Gladys 57 >=60 mL/min/1.73m 2 BUN Creatinine Ratio 15.5 Calcium 9.2 8.5-10.1 mg/dL Bilirubin Total 0.4 0.2-1.0 mg/dL Aspartate Amino Transferase 20 15-37 U/L Alanine Aminotransferase 34 14-59 U/L Alkaline Phosphatase 84 46-116 U/L Total Protein 7.2 6.4-8.2 g/dL Albumin Level 3.4 3.4-5.0 g/dL Globulin 3.8 Albumin Globulin Ratio 0.9 Performing Lab: see note ML - [facility] LB LIPID PROFILE Reviewed date:05/17/2024 08:42:40 PM Interpretation: Performing Lab: Notes/Report: [facility] , Triglycerides 85 <=150 mg/dL Cholesterol 204 <=200 mg/dL HDL Cholesterol 75 40-60 mg/dL > or =60 mg/dl - LOW CARDIOVASCULAR RISK <40 mg/dl - HIGH CARDIOVASCULAR RISK LDL Cholesterol Calculated 112.0 <100 mg/dl OPTIMAL 100-129 mg/dl NEAR OR ABOVE OPTIMAL 130-159 mg/dl BORDERLINE HIGH 160-189 mg/dl HIGH >190 mg/dl VERY HIGH VLDL CHOLESTEROL 17.0 Chol HDL Ratio 2.7 3.3 - 4.4 LOW RISK 4.4 - 7.1 AVERAGE RISK 7.1 - 11.0 MODERATE RISK >11.0 HIGH RISK Performing Lab: see note ML - [facility] LB GLYCOHEMOGLOBIN A1C Reviewed date:05/17/2024 08:42:40 PM Interpretation: Performing Lab: Notes/Report: [facility] , Glycohemoglobin A1C 5.8 4.5-6.2 % ADA RECOMMENDED LIMIT 4.0 - 6.0 ADA THERAPEUTIC TARGET < 7.0 ACTION SUGGESTED > 7.0 Estimated Average Glucose 120 Performing Lab: see note ML - [facility] FREE T3 Reviewed date:05/17/2024 08:42:40 PM Interpretation: Performing Lab: Notes/Report: [facility] , Free T3 2.88 2.18-3.98 pg/mL Performing Lab: see note ML - [facility] LB CBC AUTO DIFF Reviewed date:05/17/2024 08:42:40 PM Interpretation: Performing Lab: Notes/Report: [facility] , White Blood Count 5.8 4.0-11.0 10 3/uL Red Blood Count 4.80 4.20-5.40 10 6/uL Hemoglobin 13.9 12.0-16.0 g/dL Hematocrit 43.3 36.0-48.0 % Mean Corpuscular Volume 90.2 81.0-99.0 fL Mean Corpuscular Hemoglobin 29.0 26.7-34.0 pg Mean Corpuscular HGB Conc 32.1 29.9-35.2 g/dL Red Cell Distribution Width 13.1 11.0-15.0 % Platelet Count 299 150-450 10 3/uL Mean Platelet Volume 9.7 9.5-13.5 fL Neutrophils Percent Auto 42.4 43.0-75.0 % Lymphocytes Percent Auto 41.1 20.5-60.0 % Monocytes Percent Auto 13.9 1.7-12.0 % Eosinophils Percent Auto 1.4 0.9-7.0 % Basophils Percent Auto 1.0 0.2-2.0 % Immature Granulocytes Pct Auto 0.2 0.0-0.5 % Neutrophils Absolute Auto 2.5 1.4-6.5 10 3/uL Lymphocytes Absolute Auto 2.4 1.2-3.8 10 3/uL Monocytes Absolute Auto 0.8 0.3-0.8 10 3/uL Eosinophils Absolute Auto 0.1 0.0-0.7 10 3/uL Basophils Absolute Auto 0.1 0.0-0.1 10 3/uL Immature Granulocytes Abs Auto 0.01 0.00-0.03 10 3/uL Performing Lab: see note ML - [facility] TSH Reviewed date:06/27/2024 08:08:00 PM Interpretation: Performing Lab: Notes/Report: [facility] , Thyroid Stimulating Hormone 3.333 0.358-3.740 uIU/mL Performing Lab: see note - [facility] LB T4 Reviewed date:06/27/2024 08:08:00 PM Interpretation: Performing Lab: Notes/Report: [facility] , T4 Thyroxine 7.30 4.80-13.90 ug/dL Performing Lab: see note ML - [facility] FREE T3 Reviewed date:06/27/2024 08:08:00 PM Interpretation: Performing Lab: Notes/Report: [facility] , Free T3 2.77 2.18-3.98 pg/mL Performing Lab: see note - [facility] Reason For Referral No Information Medications Medication SIG (Take, Route, Frequency, Duration) Notes Start Date End Date Status tiZANidine HCl 4 MG 2 tablets Orally at bedtime for 15 PRN 04/06/2023 Active Diclofenac Sodium 75 MG 1 tablet as need ed Orally Twice a day for 30 PRN 11/18/2022 Active Calcium 600 MG 2 tablet with meals Orally three times daily Active Cipro 500 MG 1 tablet Orally ever y 12 hrs for 10 days 01/10/2025 Active Clindamycin HCl 300 MG 1 capsule Orally QID for 10 days PRN Active Vitamin D (Cholecalciferol) 50 MCG (1999 UT) 2 capsule Orally Once a day Active Protonix 40 MG 1 tablet Orally Once a day for 90 days Active Immunizations Vaccine Route Administration Date Status Comme nts BCG Unknown 07/10/2014 Administered Flu, Fluad (45538) 65 yrs + High Dose Seasonal (0164-4443) Unknown 04/03/2022 Administered Flu, Fluad (34357) 65 yrs and older, single-dose syringe IM Intramuscular 04/20/2024 Administered Flu, Flucelvax (89698) 2 yrs+, single-dose syringe (7863-4997) Unknown 05/30/2020 Administered Flu, Flucelvax (42592) 2 yrs+, single-dose syringe () Unknown 04/11/2021 Administered Flu, Fluzone High-Dose (8822-8886) (69324) 65 yrs+ Unknown 05/04/2023 Administered Hep A, unspecified Unknown 11/21/2018 Administered Pneumococcal (Prevnar 13) Unknown 09/24/2017 Administer ed Pneumococcal (Prevnar 13) Unknown 09/22/2021 Administer ed SARS-COV-2 (COVID 19 Pfizer 30mcg/0.3mL) Unknown 02/04/2021 Administered SARS-COV-2 (COVID 19 Pfizer 30mcg/0.3mL) Unknown 02/25/2021 Administered SARS-COV-2 (COVID 19 Pfizer 30mcg/0.3mL), pastora sucrose Unknown 08/26/2021 Administered SARS-COV-2 (COVID 19 Pfizer 30mcg/0.3mL), pastora sucrose Unknown 02/10/2022 Administered SARS-COV-2 (COVID 19) bivalent 30 mcg/0.3 ml dose Unknown 04/14/2022 Administered Td, Adult, preservative free Unknown 05/06/2004 Administered Tdap (Boostrix) Unknown 04/23/2007 Administered Tetanus toxoid, absorbed - historic Unknown 12/13/1994 Administered Tetanus toxoid, absorbed - historic Unknown 09/24/2017 Administered Social History Tobacco Use: Social History Observation Description Date Details (start date - stop date) Former Smoker NA - 10/13/2001 Tobacco Use/Smoking Question Answer Notes Patient is a former smoker When did you stop smoking? 10/13/2001 How long has it been since you last smoked? > 10 years Alcohol Screen (Audit-C) Question Answer Notes Did you have a drink containing alcohol in the p ast year? No Points 0 Interpretation Negative AUDIT-C (Standard) Question Answer Notes Did you have a drink containing alcohol in the p ast year? No Points 0 Interpretation Negative Problems Problem Type SNOMED Code ICD Code Onset Dates Problem Status W/U Status Risk Notes Problem Sialolithiasis (26117254) Sialolithiasis (K11.5) Active confirmed Problem Senile osteoporosis (64435856) Senile osteoporosis (M81.0) Active confirmed Problem Gastroesophageal reflux disease (254702696) GERD (gastroesophageal reflux disease) (K21.9) Active confirmed Problem Bradycardia (37342155) Bradycardia (R00.1) Active confirmed Problem Plantar fasciitis (595807466) Plantar fasciitis (M72.2) Active confirmed Problem Osteoarthritis of left knee joint (253943460086019) Left knee DJD (M17.9) Active confirmed Problem Sialoadenitis (12823067) Sialoadenitis (K11.20) Active confirmed Vital Signs Blood pressure diastolic 82 mm Hg 11/29/2024 Height 64 in 11/29/2024 Blood pressure systolic 128 mm Hg 11/29/2024 Weight 179.6 lbs 11/29/2024 BMI 30.82 kg/m2 11/29/2024 Encounters Encounter Location Date Provider Diagnosis [facility] [address] [place] [address] 01/19/2025 Marco Brewster UTI (urinary tract infection) N39.0 [facility] [address] [place] [address] 01/09/2025 Marco Brewster [facility] [address] [place] [address] 05/17/2024 Marco Brewster Hypothyroid E03.9 [facility] [address] [place] [address] 06/27/2024 Marco Brewster [facility] [address] [facility] [place] [address] 10/21/2024 Marco Hoy Sialoadenitis K11.2 0 [facility] [address] [facility] [place] [address] 12/01/2024 Marco Hoy [facility] [address] [place] [address] 12/30/2024 Marco Hoy Osteopenia M85.80 an d Medication management Z79.899 [facility] [address] [facility] [place] [address] 01/09/2025 Marco Hoy Flank pain R10.9 [facility] [address] [facility] [place] [address] 01/27/2024 Marco Hoy Sialoadenitis K11.20 [facility] [address] [place] [address] 03/13/2024 Marco Hoy [facility] [address] [facility] [place] [address] 11/29/2024 Marco Camerony Encounter for [employer] annual wellness exam Z00.00 and Senile osteoporosis M81.0 [facility] [address] [place] [address] 04/20/2024 Marco Hoy Sialoadenitis K11.20 ; GERD (gastroesophageal reflux disease) K21.9 ; Bradycardia R00.1 ; Left knee DJD M17.9 and Encounter for immunization Z23 Assessments Encounter Date Diagnosis (ICD Code) Assessment Notes Treatment Notes Treatment Clinical Notes Section Notes 04/20/2024 Sialoadenitis (ICD-10 - K11.20) 04/20/2024 GERD (gastroesophageal reflux disease) (ICD-10 - K21.9) 04/20/2024 Bradycardia (ICD-10 - R00.1) 11/29/2024 Encounter for Medicare annual wellness exam (ICD-10 - Z00.00) 11/29/2024 Senile osteoporosis (ICD-10 - M81.0) 01/27/2024 Sialoadenitis (ICD-10 - K11.20) 05/17/2024 Hypothyroid (ICD-10 - E03.9) 10/21/2024 Sialoadenitis (ICD-10 - K11.20) 12/30/2024 Osteopenia (ICD-10 - M85.80) 12/30/2024 Medication management (ICD-10 - Z79.899) 01/09/2025 Flank pain (ICD-10 - R10.9) 01/19/2025 UTI (urinary tract infection) (ICD-10 - N39.0) 04/20/2024 Left knee DJD (ICD-10 - M17.9) 04/20/2024 Encounter for immunization (ICD-10 - Z23) Plan Of Treatment Pending Test Test Name Order Date CMP (COMPLETE METABOLIC PANEL) 4 UA (URINALYSIS, COMPLETE) 01/19/2025 UA (URINALYSIS, COMPLETE) 01/09/2025 HEMOGLOBIN A1C (GLYCO) 04/20/2024 IRON, TOTAL 04/20/2024 LIPID PANEL (CHOL/TRIG/HDL/LDL) 04/20/20 24 CBC WITH DIFF 04/20/2024 Urine Culture 01/19/2025 Urine Culture 01/09/2025 URINE MICROSCOPIC ONLY 01/19/2025 XR DEXA BONE DENSITY 11/29/2024 XR KNEE LT 3V 11/18/2022 THYROID PANEL (T4/TSH/FREE T3) 4 THYROID PANEL (T4/TSH/FREE T3) 4 Vitamin D 12/30/2024 Insurance Providers Payer Name Payer Address Payer Phone Subscriber Number Group Number Insured Name Patient Relationship to Insured Coverage Start Date Coverage End Date [employer] MEDICARE ADV PLAN [address] [address] [place] [address] [phone] [id number] Brie Taylor Self - patient is the insured [place] [address] [place] [address] [phone] [id number] Brie Taylor Self - patient is the insured Medical (General) History Medical History History ICD Code Arthritis of knee, left M17.12 Acid reflux K21.9 Bradycardia R00.1 Arthritis of knee, left M17.12 Age-related bone loss M85.80 Calculus in salivary duct K11.5 Surgical History Surgery Date(Month/Year) left total hip arthropasty 10/11/2020 colonscopy 10/01/2022
--- OUTSIDE RECORDS SUMMARY | 2025-01-19 11:45 | XMS_ITS | Encounter Summary ---
Author Organization [facility] Address [address] [place] [address] Care Team Providers Care Embedded Software Programmer Name Role Phone Myron Brewster MD Primary Care Provider [phone] Encounter Details Date Type Department Care Team (Late st Contact Info) Description 09/01/2023 Orders Only [facility] [address] [place] [address] Davin Mosher MD [address] [place] [address] Social History Tobacco Use Types Packs/Day Years [...] on filedocumented in this encounter Care Teams Embedded Software Programmer Relationship Specialty Start Date End Date Myron Brewster MD PCP - General Family Medicine 08/18/23 documented as of this encounter
--- OUTSIDE RECORDS SUMMARY | 2025-01-19 11:45 | XMS_ITS | Encounter Summary ---
Author Organization [facility] Address [address] [facility] [place] [address] Care Team Providers Care Home Appliance Washing Machine Mechanic Name Role Phone Myron Brewster MD Primary Care Provider [phone] Encounter Details Date Type Department Care Team (Late st Contact Info) Description 08/29/2024 Orders Only [facility] [address] [place] [address] Gordy Matthew MD [address] [place] [address] Social History Tobacco Use Types Packs/Day Years [...] on filedocumented in this encounter Care Teams Home Appliance Washing Machine Mechanic Relationship Specialty Start Date End Date Myron Brewster MD PCP - General Family Medicine 08/18/23 documented as of this encounter
--- OUTSIDE RECORDS SUMMARY | 2025-01-19 11:45 | XMS_ITS | Clinical Summary ---
Author Organization [facility] Address [address] [address] Care Team Providers Care Detasseling Crew Supervisor Name Role Phone Unavailable Primary Care Provider [...] How often do you attend chur or amish services? More than 4 times per year 05/15/2022 Do you belong to any clubs o r organizations such as taoist groups, unions, fraternal or athletic groups, or [...] Recorded Patient Health Questionnaire-2 Score 0 05/15/2022 [facility] [place] - Occupational Stress Questionnaire Answer Date Recorded [...] place to sleep or slept in a custodial (including now)? No 05/15/2022 [facility] [...] COVID-19 Vaccine ( season) 2024 Influenza Vaccine (#1) 2025 , 05/30/2020, 04/15/2020, Additional history exists Adult Tetanus [...] patient's age to complete this topic Insurance [facility] MEDICARE ADVANTAGE
--- OUTSIDE RECORDS SUMMARY | 2025-01-19 11:45 | XMS_ITS | Encounter Summary ---
Author Organization [facility] s tem Address [id number] [place] [address] Care Team Providers Care Mold Builder Name Role Phone Unavailable Primary Care Provider Unavailabl e Encounter Details Date Type Department Care Team (Late st Contact Info) Description 09/12/2024 Orders Only [facility] [address] [place] [address] Leonor Guerrero CMA Aftercare following left hip [...]
--- OUTSIDE RECORDS SUMMARY | 2025-01-19 11:45 | XMS_ITS | Clinical Summary ---
Author Organization [facility] Address [address] [place] [address] Care Team Providers Care Bridge Engineer Name Role Phone Myron Brewster MD Primary Care Provider [phone] Allergies Active Allergy Reactions Criticality Noted Date [...] 1955 Sigmoidoscopy 1955 Mammogram 1996 Influenza Vaccine (#1) 2025 , 04/03/2022, 04/11/2021, Additional history exists Pneumococcal Vaccine: 65+ Years Completed 03/28/2022, 09/22/2021, 09/24/2017, Additional history exists Insurance MEDICARE ADVANTAGE Care Teams Bridge Engineer Relationship Specialty Start Date End Date Myron Brewster MD PCP - General Family Medicine 08/18/23
[2025-01-19 13:56] LABS: Glucose Urine UA NEGATIVE (NEGATIVE)
[2025-01-19 14:23] LABS: Cast Seen? NONE SEEN #/LPF (NONE SEEN); Crystals Seen? None Seen #/HPF (None Seen)
== END 2025-01-19 11:43 | disposition home or self-care (01) ==
LOC: LAB 11:43
PROVIDERS: PCP Family Medicine; Visit Provider Family Medicine
DX: N39.0 Urinary tract infection, site not specified (principal)
CPT/HCPCS: 81001; 87086

== ENCOUNTER 2025-02-03 08:14 | Outpatient (OUT) | payer MEDICARE, SELFPAY ==
--- OUTSIDE RECORDS SUMMARY | 2025-01-19 04:04 | XMS_ITS ---
Author Organization [facility] in [place] Address [address] [place] [address] Care Team Providers Care Credit Risk Analyst Name Role Phone Marco Brewster Primary Care Provider [phone] REASON FOR VISIT UTI update Medications Medication SIG (Take, Route, Fr equency, Duration) Notes Start Date End Date Status Cefdinir 300 MG 2 capsules Orally on ce a day for 10 days 01/19/2025 Active Encounters Encounter Location Date Provider Diagnosis [facility] [address] [place] [address] 01/19/2025 Marco Brewster UTI (urinary tract infection) N39.0 Assessments Encounter Date Diagnosis (ICD Code) Assessment Notes Treatment Notes Treatment Clinical Notes Section Notes 01/19/2025 UTI (urinary tract infection) (ICD-10 - N39.0) Plan Of Treatment Medication Medication Name Sig Start Date Stop Date Notes Cefdinir 300 MG 2 capsules Orally once a day for 10 days 0 01/19/2025 Pending Test Test Name Order Date UA (URINALYSIS, COMPLETE) 01/19/2025 Urine Culture 01/19/2025 URINE MICROSCOPIC ONLY 01/19/2025 Progress Notes * Brie DUMONT KDOB:[birth year] (69 yo F)Acc No.[id number]:01/19/2025 Patient: Bethany ANTOINEYARI Brie Schuster :1955 A ge:69 Y S ex:Female Address:[address] [place], [place] [address] [address] * Refills Start Cefdinir Capsule, 300 MG, Orally, 20 Capsule, 2 capsules, once a day, 10 days, Refills=0 Subjective: * Chief Complaints: * U TI update * Medical History: * Surgical History: * Hospitalization/Major Diagno stic Procedure: * Medications: Objective: * Vitals: * Physical Examination: Assessment: * Assessment: 1. U TI (urinary tract infection) - N39.0 (Primary) Plan: * Treatment: 2. O thers Start Cefdinir Capsule, 300 MG, 2 capsules, Orally, once a day, 10 days, 20 Capsule, Refills 0.? * Procedure Codes: * true * Date: Generated for Sincere alva/Azeb/Parisitting on: 0 02/03/2025 08:17 AM EDT
--- OUTSIDE RECORDS SUMMARY | 2025-01-22 15:57 | XMS_ITS ---
Author Organization [facility] in [place] Address [address] [place] [address] Care Team Providers Care Trustee Of Estate Name Role Phone Marco Brewster Primary Care Provider REASON FOR VISIT Urine Cx Encounters Encounter Location Date Provider Diagnosis [facility] [address] [place] [address] 01/22/2025 Marco Brewster Plan Of Treatment No Information Progress Notes * Brie DUMONT KDOB:[birth year] (69 yo F)Acc No.[id number]:01/22/2025 Patient: Bethany GUAJARDO Brie Schuster :1955 A ge:69 Y S ex:Female Address:[address] [place] [address] [place] [address] * true * Date: Generated for Sincere alva/Azeb/eTransmitting on: 0 02/03/2025 08:16 AM EDT
--- OUTSIDE RECORDS SUMMARY | 2025-01-30 05:45 | XMS_ITS ---
Author Organization [facility] in [place] Address [address] [place] [address] Care Team Providers Care Flight Test Data Acquisition Technician Name Role Phone Marco Brewster Primary Care Provider Allergies Allergen (clinical drug ingredient) Drug/Non Drug Allergy documented on EMR Reaction Allergy Type Onset Date Status Latex Latex (uncoded) contact dermatitis Allergy Active amoxicillin Amoxicillin rash Drug Allergy Act rosales erythromycin Erythromycin GI upset Drug Allergy A ctive Results Component Value Reference Range Notes UA DIP NONAUTO WO MICRO (810 02) - IN OFFICE (Not yet reviewed by provider) Interpretation: Performing Lab: Notes/Report: COLOR light yellow CLARITY clear GLUCOSE neg BILIRUBIN neg KETONE neg SPECIFIC GRAVITY 1.020 BLOOD neg PH 6.5 PROTEIN neg UROBILINOGEN neg NITRITE neg LEUKOCYTE ESTERASE neg REASON FOR VISIT Presents to office for f/u UIT. Finished 2 different atb. Still feels like bladder is not emptying,still with lower back pain (worse in am), feels like urine flow is decreased Medications Medication SIG (Take, Route, Frequency, Duration) Notes Start Date End Date Status Calcium 600 MG 2 tablet with meals Orally three times daily Active Diclofenac Sodium 75 MG 1 tablet as need ed Orally Twice a day for 30 PRN 11/18/2022 Active Protonix 40 MG 1 tablet Orally Once a day for 90 days Active tiZANidine HCl 4 MG 2 tablets Orally at bedtime for 15 PRN 04/06/2023 Active Vitamin D (Cholecalciferol) 50 MCG (1999 UT) 2 capsule Orally Once a day Active Tolterodine Tartrate ER 2 MG 1 capsule Orally Once a day for 30 days 01/30/2025 Active Social History Tobacco Use: Social History Observation Description Date Details (start date - stop date) Former Smoker NA - 10/13/2001 Tobacco Use/Smoking Question Answer Notes Patient is a former smoker When did you stop smoking? 10/13/2001 How long has it been since you last smoked? > 10 years AUDIT-C (Standard) Question Answer Notes Did you have a drink containing alcohol in the p ast year? No Points 0 Interpretation Negative Vital Signs Weight 178.6 lbs 01/30/2025 Height 64 in 01/30/2025 Blood pressure systolic 156 mm Hg 01/31/20 25 Blood pressure diastolic 84 mm Hg 025 BMI 30.65 kg/m2 01/30/2025 Encounters Encounter Location Date Provider Diagnosis [id number] [place] [address] 01/30/2025 Marco Brewster UTI (urinary tract infection) N39.0 and Dysuria 788.1 Assessments Encounter Date Diagnosis (ICD Code) Assessment Notes Treatment Notes Treatment Clinical Notes Section Notes 01/30/2025 UTI (urinary tract infection) (ICD-10 - N39.0) 01/30/2025 Dysuria (ICD9-CM - 788.1) Plan Of Treatment Medication Medication Name Sig Start Date Stop Date Notes Clindamycin HCl 300 MG 1 capsule Orally QID PRN Tolterodine Tartrate ER 2 MG 1 capsule O rally Once a day for 30 days 01/30/2025 Pending Test Test Name Order Date UA DIP NONAUTO WO MICRO (07534) - IN OFF ICE 01/30/2025 US renal bladder 01/30/2025 Progress Notes * Brie DUMONT KDOB:[birth year] (69 yo F)Acc No.[id number]:01/30/2025 Progress Note Patient: Brie TAYLOR Provider: Natalio Brewster ([facility])MD :1955 A ge:69 Y S ex:Female Date:01/30/2025 Address:[address] [place], [place] [id number] Check In:09:21 AM ESTCheck O ut:09:55 AM EST Subjective: * Chief Complaints: * 1 . Presents to office for f/u UIT. Finished 2 different atb. Still feels like bladder is not emptying, still with lower back pain (worse in am), feels like urine flow is decreased. * HPI: G eneral: stil with bladder spasms and feelgin like not emptying. * ROS: E ENT: hearing changes d enies. v isual changes d enies.?non-healing mouth sores d enies. s wollen glands or neck lumps d enies. h oarseness d enies. s ore throat d enies. d ifficulty swallowing d enies. n ose bleeds d enies. n prisca congestion d enies. e ar ache d enies. e ar discharge?denies. r inging in ears d enies. l ight sensitivity d enies. e ye pain d enies. b lurring d enies. e ye irritation d enies. d ouble vision d enies.?vision loss d enies. G eneral/Constitutional: Sweats: D enies. F atigue d enies. S leep problems d enies. A norexia d enies. M alaise d enies. W eight loss d enies.?Fatigue or Weakness d enies. F ever or Chills d enies. C ardiovascular: Shortness of Breath w/lying flat d enies. L ightheadedness/dizziness d enies. C hest tightness/ heavy pressure d enies. S welling of legs, ankles, or feet d enies. W aking up with shortness of breath d enies. C hest pain denies. P alpitations d enies. W eight gain d enies. R espiratory: Chronic or frequent cough d enies. C oughing up blood?denies. D ifficulty breathing d enies. P roductive cough d enies. S noring?denies. S hortness of breath that awakens from sleep (PND) d enies. C hest pain d enies. S putum production d enies. W heezing d enies. M usculoskeletal: Joint pain d enies. J oint Fluid d enies. B ack pain d enies. K nee pain d enies. N aruna pain d enies. J oint Stiffness d enies. M uscle cramps d enies. W eakness of muscles d enies. A rthritis d enies. M uscle aches d enies. P ain in shoulder(s) d enies. S wollen joints d enies. 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 * Surgical History: l eft total hip arthropasty 10/11/2020, colonscopy 10/01/2022. * Family History: F ather: 83 yrs. M other: 78 yrs, diagnosed with Diabetes mellitus without mention of complication, type II or unspecified type, not stated as uncontrolled, Unspecified essential hypertension, Unspecified heart disease. S ister(s): alive, diagnosed with Diabetes mellitus without mention of complication, type II or unspecified type, not stated as uncontrolled. S on(s): alive. 2 sister(s) . 2 son(s) - healthy. . * Social History: T obacco Use: T obacco Use/Smoking P atient is a f ormer smoker W hen did you stop smoking? 0 10/13/2001 H ow long has it been since you last smoked??> 10 years D rug/Alcohol: A KRAIG-C (Standard) D id you have a drink containing alcohol in the past year? N o P oints 0 I nterpretation N egative * Medications: T aking Calcium 600 MG Tablet 2 tablet with meals Orally three times daily , Taking Clindamycin HCl 300 MG Capsule 1 capsule Orally QID , Notes to Pharmacist: PRN, Taking Diclofenac Sodium 75 MG Tablet Delayed Release 1 tablet as needed Orally Twice a day , Notes to Pharmacist: PRN, Taking Protonix(Pantoprazole Sodium) 40 MG Tablet Delayed Release 1 tablet Orally Once a day , Taking tiZANidine HCl 4 MG Tablet 2 tablets Orally at bedtime , Notes to Pharmacist: PRN, Taking Vitamin D (Cholecalciferol) 50 MCG (1999) Capsule 2 capsule Orally Once a day , Discontinued Cefdinir 300 MG Capsule 2 capsules Orally once a day , Discontinued Cipro(Ciprofloxacin HCl) 500 MG Tablet 1 tablet Orally every 12 hrs , Medication List reviewed and reconciled with the patient * Allergies: A moxicillin: rash - Allergy - Criticality Low, Erythromycin: GI upset - Side Effects, Latex: contact dermatitis - Side Effects. Objective: * Vitals: W t:178.6lbs, Ht: 64 in, BP:156/84mm Hg, BMI:30.65Index, Ht-cm: 162.56 cm, Wt-k.01 kg. * Examination: P hysical Exam: GENERAL: w ell developed, well nourished, in no acute distress. HEAD: n ormocephalic/atraumatic. EYES: p upils equal, round and reactive to light, conjunctivae and sclerae normal. EARS: n o deformity or lesion of external ear, canals and TM appear normal bilaterally, TM's intact, not inflamed with normal light reflex, hearing grossly normal to conversational speech. NOSE: n o deformity, discharge, inflammation, or lesions.? MOUTH: m ucous membranes moist, normal oropharynx and posterior pharynx without lesions or exudates, tongue normal, dentition normal. NECK: n aruna supple, no masses or palpable cervical nodes, trachea midline, thyroid without nodules, masses, tenderness, or enlargement. CHEST: n o chest wall deformity, no chest wall tenderness.? LUNGS: n ormal respiratory effort and clear to auscultation, no wheezes, rales, or rhonchi, good air exchange. CARDIO: r egular rate and rhythm, normal S1 and S2, nor murmur, rub, or gallop. PULSES: n ormal capillary refill. ABDOMEN: s oft, non-distended, non-tender, no masses. MUSCULOSKELETAL: n o deformity or scoliosis noted, normal range of motion, joints normal, no erythema, edema, effusion, or ecchymosis. EXTREMITY: n o clubbing, cyanosis, edema, or deformity with normal ROM in both upper and lower bilateral extremities. NEUROLOGIC: g rossly normal. SKIN: n o rashes, ulcerations, or suspicious lesions. LYMPH NODES: n o cervical adenopathy, nodes normal. MENTAL STATUS: a lert and oriented x3, normal mood and affect. Assessment: * Assessment: 1. U TI (urinary tract infection) - N39.0 (Primary) 2 . D ysuria - 788.1? Plan: * Treatment: * Labs: * L ab: UA DIP NONAUTO WO MICRO (90175) - IN OFFICE (Collection Date & Time - 01/30/2025) Value Reference Range C OLOR light yellow * C LARITY clear * G LUCOSE neg * B ILIRUBIN neg * K ETONE neg * S PECIFIC GRAVITY 1.020 * B LOOD neg * P H 6.5 * P ROTEIN neg * U ROBILINOGEN neg * N ITRITE neg * L EUKOCYTE ESTERASE neg * Procedure Codes: 8 1002 URINALYSIS WO MICRO * Preventive Medicine: Screenings/Counseling: B OK ACTION PLAN Above Normal BMI Follow-up D ietary management education, guidance, and counseling See treatment section of progress note for complete details of management plan. F ALL RISK SCREENING Fall Risk Assessment: N o falls in the past year * * Sign off status: Completed Visit Status: C HK (Check Out) true * Provider: Natalio Brewster ([facility])MD Date: 0 01/30/2025 Generated for Sincere alva/Azeb/Parisitting on: 02/03/2025 08:16 AM EDT History and Physical Notes * HPI (History of Present Illness) Category Sub-Category Detail Notes Category Not es General stil with bladd er spasms and feelgin like not emptying Examination Category Sub-Category Detail Notes Category Not es Physical Exam GENERAL: well developed, well nourished, in no acute distress HEAD: normocephalic/atraum atic EYES: pupils equal, round and reactive to light, conjunctivae and sclerae normal EARS: no deformity or lesi on of external ear, canals and TM appear normal bilaterally, TM's intact, not inflamed with normal light reflex, hearing grossly normal to conversational speech NOSE: no deformity, discha rge, inflammation, or lesions MOUTH: mucous membranes rocio st, normal oropharynx and posterior pharynx without lesions or exudates, tongue normal, dentition normal NECK: neck supple, no mass es or palpable cervical nodes, trachea midline, thyroid without nodules, masses, tenderness, or enlargement CHEST: no chest wall deform ity, no chest wall tenderness LUNGS: normal respiratory e ffort and clear to auscultation, no wheezes, rales, or rhonchi, good air exchange CARDIO: regular rate and rhy thm, normal S1 and S2, nor murmur, rub, or gallop PULSES: normal capillary ref ill ABDOMEN: soft, non-distended, non-tender, no masses RECTAL: MUSCULOSKELETAL: no deformity or scol iosis noted, normal range of motion, joints normal, no erythema, edema, effusion, or ecchymosis EXTREMITY: no clubbing, cyanosi s, edema, or deformity with normal ROM in both upper and lower bilateral extremities NEUROLOGIC: grossly normal SKIN: no rashes, ulceratio ns, or suspicious lesions LYMPH NODES: no cervical adenopat hy, nodes normal MENTAL STATUS: alert and oriented x 3, normal mood and affect
--- NOTE | 2025-02-03 08:16 | US_ITS ---
[address] [address] Patient Name: MERCEDES EAGLE MRN: [id number] date: 1955 Sex: F Assigned Patient Location: US Current Patient Location: US Accession/Order Number: [id number] Exam Date: 02/03/2025 08:25 Report Date: 02/03/2025 14:22 At the request of: ARETHA CRUZ MD Procedure: US renal bladder Bilateral Renal Ultrasound HISTORY: UTI. Flank pain. COMPARISON: None RIGHT kidney measures 10.2 cm. LEFT kidney measures 9.2 cm. Hydronephrosis: None RENAL STONE: No shadowing renal calculus is seen. RENAL LESIONS: No renal lesion identified. URINARY BLADDER: Minimal post void residual REPRODUCTIVE STRUCTURES Not assessed IMPRESSION : No hydronephrosis. Minimal post void residual of the urinary bladder Impression dictated by: Davin Chávez M.D. 02/03/2025 2:22 PM Dictation Location: [place] [address] Electronically authenticated by: [id number] Y Date: 02/03/2025 14:22
--- OUTSIDE RECORDS SUMMARY | 2025-02-03 08:16 | XMS_ITS | Encounter Summary ---
Author Organization [facility] Address [address] [place] [address] Care Team Providers Care Sewer Digger Name Role Phone Myron Brewster MD Primary Care Provider [phone] Encounter Details Date Type Department Care Team (Late st Contact Info) Description 01/11/2024 Orders Only [facility] [address] [place] [address] Wendi Cervantes MD [address] [place] [address] Social History Tobacco Use Types Packs/Day Years [...] on filedocumented in this encounter Care Teams Sewer Digger Relationship Specialty Start Date End Date Myron Brewster MD PCP - General Family Medicine 08/18/23 documented as of this encounter
--- OUTSIDE RECORDS SUMMARY | 2025-02-03 08:16 | XMS_ITS | Encounter Summary ---
Author Organization [facility] Address [address] [place] [address] Care Team Providers Care Core Worker Name Role Phone Myron Brewster MD Primary Care Provider [phone] Encounter Details Date Type Department Care Team (Late st Contact Info) Description 01/12/2024 Clinisync Result Encounter [facility] External Department Unsolicited Eugenio Cervantes MD [address] [place] [address] Social History Tobacco Use Types [...] EDT Narrative 01/12/2024 11:00 AM EDT The [address] [address] [address] Scan Report Signed Patient: MERCEDES DUMONT MR#: [id number] : 1955 Acct:[id number] Age/Sex: 68 / F ADM Date: 01/11/24 Loc: CT Attending Dr: Eugenio Cervantes M.D. Ordering Physician: Eugenio Cervantes M.D. Date of Service: 01/11/24 Procedure(s): CT soft tissue neck w con Accession Number(s): [id number] cc: Myron Brewster M.D. [address] [address] Patient Name: MERCEDES DUMONT MRN: [facility]:[id number] date: 1955 Sex: F Assigned Patient Location: CT Current Patient Location: Accession/Order Number: [id number] Exam Date: 01/11/2024 13:24 Report Date: 01/12/2024 [...] Signed By: 01/12/24 1100 DD/ 1057 TD/TT: Rubber Goods Cutter Finisher: Procedure Note Radiology, Radiologist, MD - 01/12/[address] [place] [id number] Scan Report Signed Patient: MERCEDES DUMONT KMR#: [id number] : 1955cct:[id number] Age/Sex: 68 / FADM Date: 01/11/24 Loc: CT Attending Dr: Eugenio Cervantes M.D. Ordering Physician: Eugenio Cervantes M.D. Date of Service: 01/11/24 Procedure(s): CT soft tissue neck w con Accession Number(s): [id number] cc: Myron Brewster M.D. [facility] [place] [id number] Patient Name: MERCEDES DUMONT MRN: [id number] date: 1955 Sex: F Assigned Patient Location: CT Current Patient Location: Accession/Order Number: [id number] Exam Date: 01/11/2024 13:24 Report Date: 01/12/2024 [...] M.D. Signed By:01/12/24 1100 DD/ 1057 TD/TT: Rubber Goods Cutter Finisher: us Eugenio Cervantes MD IMG CT PROCEDURES Final Resul t documented in this encounter Visit Diagnoses Not on filedocumented in this encounter Care Teams Core Worker Relationship Specialty Start Date End Date Myron Brewster MD PCP - General Family Medicine 08/18/23 documented as of this encounter
--- OUTSIDE RECORDS SUMMARY | 2025-02-03 08:16 | XMS_ITS | Clinical Summary ---
Author Organization [facility] s tem Address [id number] [address] [place] [address] Care Team Providers Care Lpn Per Diem Name Role Phone Unavailable Primary Care Provider [...]
--- OUTSIDE RECORDS SUMMARY | 2025-02-03 08:17 | XMS_ITS | Encounter Summary ---
Author Organization [facility] s [facility] Address [id number] [address] [place] [place] [address] Care Team Providers Care Schedule Hanger Name Role Phone Unavailable Primary Care Provider Unavailabl e Encounter Details Date Type Department Care Team (Late st Contact Info) Description 09/12/2024 Orders Only [facility] [address] [place] [address] Leonor Guerrero CMA Aftercare following left hip [...]
--- OUTSIDE RECORDS SUMMARY | 2025-02-03 08:17 | XMS_ITS | Clinical Summary ---
Author Organization [facility] Address [address] [place] [address] Care Team Providers Care Convertible Sofa Bedspring Tester Name Role Phone Unavailable Primary Care Provider [...] How often do you attend chur or temple services? More than 4 times per year 05/15/2022 Do you belong to any clubs o r organizations such as uatsdin groups, unions, fraternal or athletic groups, or [...] Recorded Patient Health Questionnaire-2 Score 0 05/15/2022 [facility] - Occupational Stress Questionnaire Answer Date [...] place to sleep or slept in a halfway (including now)? No 05/15/2022 [facility] [...] patient's age to complete this topic Insurance [facility] MEDICARE ADVANTAGE
--- OUTSIDE RECORDS SUMMARY | 2025-02-03 08:17 | XMS_ITS | Encounter Summary ---
Author Organization [facility] Address [address] [place] [address] Care Team Providers Care Rotating Equipment Engineer Name Role Phone Myron Brewster MD Primary Care Provider [phone] Encounter Details Date Type Department Care Team (Late st Contact Info) Description 09/01/2023 Orders Only [facility] [address] [place] [address] Davin Mosher MD [address] [place] [address] Social History Tobacco Use Types Packs/Day Years [...] on filedocumented in this encounter Care Teams Rotating Equipment Engineer Relationship Specialty Start Date End Date Myron Brewster MD PCP - General Family Medicine 08/18/23 documented as of this encounter
--- OUTSIDE RECORDS SUMMARY | 2025-02-03 08:17 | XMS_ITS | Clinical Summary ---
Author Organization [facility] Address [address] [place] [address] Care Team Providers Care Cross Tie Cutter Name Role Phone Myron Brewster MD Primary Care Provider [phone] Allergies Active Allergy Reactions Criticality Noted Date [...] history exists Insurance MEDICARE ADVANTAGE Care Teams Cross Tie Cutter Relationship Specialty Start Date End Date Myron Brewster MD PCP - General Family Medicine 08/18/23
--- OUTSIDE RECORDS SUMMARY | 2025-02-03 08:17 | XMS_ITS | Patient Health Record ---
Author Organization [facility] Address [address] [place] [address] Care Team Providers Care Mental Health Worker Name Role Phone Marco Brewster Primary Care Provider [phone] Allergies Allergen (clinical drug ingredient) Drug/Non Drug [...] UROBILINOGEN neg NITRITE neg LEUKOCYTE ESTERASE neg UA RANDOM W or MICROSCOPIC Reviewed date:01/09/2025 05:02:55 PM Interpretation: Performing Lab: Notes/Report: [facility] , Color Urine LT. YELLOW YELLOW Clarity Urine CLEAR CLEAR Specific [place] Urine 1.015 1.005-1.025 pH Urine 8.5 5.0-9.0 [...] #/LPF Performing Lab: see note ML - [facility] LB Urine Culture - [facility] Reviewed date:01/12/2025 12:56:27 PM Interpretation: Performing Lab: Notes/Report: [facility] , Urine Culture - [facility] See Below For Report Urine Culture - [facility] 15,000 colonies/ml mixed Urine Culture - [facility] bacterial skin contaminants Urine Culture - [facility] 15,000 colonies/ml mixed Urine Culture - [facility] 2 Days Urine Culture - [facility] 15,000 colonies/ml mixed Urine Culture - [facility] Urine Culture - [facility] 15,000 colonies/ml mixed Urine Culture - [facility] Testing performed a [facility] Urine Culture - [facility] 15,000 colonies/ml mixed Urine Culture - [facility] [address] [place] [address] Urine Culture - [facility] 15,000 colonies/ml mixed Performing Lab: see note ML - [facility] LB TSH Reviewed date:06/27/2024 08:08:00 PM Interpretation: Performing Lab: Notes/Report: [facility] , Thyroid Stimulating Hormone 3.333 0.358-3.740 uIU/mL Performing Lab: see note ML - [facility] LB T4 Reviewed date:06/27/2024 08:08:00 PM Interpretation: Performing Lab: Notes/Report: [facility] , T4 Thyroxine 7.30 4.80-13.90 ug/dL Performing Lab: see note ML - [facility] LB FREE T3 Reviewed date:06/27/2024 08:08:00 PM Interpretation: Performing Lab: Notes/Report: [facility] , Free T3 2.77 2.18-3.98 pg/mL Performing Lab: see note ML - [facility] LB TSH Reviewed date:05/17/2024 08:42:40 PM Interpretation: Performing Lab: Notes/Report: [facility] , Thyroid Stimulating Hormone 4.292 0.358-3.740 uIU/mL Performing Lab: see note ML - [facility] LB T4 Reviewed date:05/17/2024 08:42:40 PM Interpretation: Performing Lab: Notes/Report: [facility] , T4 Thyroxine 6.00 4.80-13.90 ug/dL Performing Lab: see note ML - [facility] LB PROF 14(COMP METB) Reviewed date:05/17/2024 08:42:40 PM Interpretation: Performing Lab: Notes/Report: [facility] , Sodium 143 136-145 mmol/L Potassium [...] 0.9 Performing Lab: see note ML - [facility] LB LIPID PROFILE Reviewed date:05/17/2024 08:42:40 PM Interpretation: Performing Lab: Notes/Report: [facility] , Triglycerides 85 <=150 mg/dL Cholesterol [...] RISK Performing Lab: see note ML - [facility] LB IRON Reviewed date:05/17/2024 08:42:40 PM Interpretation: Performing Lab: Notes/Report: [facility] , Iron 104.0 50.0-170.0 ug/dL Performing Lab: see note ML - [facility] LB GLYCOHEMOGLOBIN A1C Reviewed date:05/17/2024 08:42:40 PM Interpretation: Performing Lab: Notes/Report: [facility] , Glycohemoglobin A1C 5.8 4.5-6.2 % ADA RECOMMENDED LIMIT 4.0 - 6.0 ADA THERAPEUTIC TARGET < 7.0 ACTION SUGGESTED > 7.0 Estimated Average Glucose 120 Performing Lab: see note ML - [facility] LB FREE T3 Reviewed date:05/17/2024 08:42:40 PM Interpretation: Performing Lab: Notes/Report: [facility] , Free T3 2.88 2.18-3.98 pg/mL Performing Lab: see note - [facility] LB CBC AUTO DIFF Reviewed date:05/17/2024 08:42:40 PM Interpretation: Performing Lab: Notes/Report: [facility] , White Blood Count 5.8 4.0-11.0 [...] 3/uL Performing Lab: see note ML - [facility] MM tomosynthesis screening B I Reviewed date:05/04/2024 12:32:18 PM Interpretation: Performing Lab: Notes/Report: Source Facility: [place] [address] Mammography Report Signed Patient: BRIE DUMONT MR#: [id number] : 1955 Acct:[id number] Age/Sex: 68 / F ADM Date: 05/04/24 Loc: MAMMO Attending Dr: Myron Brewster M.D. Ordering Physician: Myron Brewster M.D. Results: Date of Service: 05/04/24 Follow Up: Procedure(s): MM tomosynthesis screening BI Accession Number(s): [id number] cc: Myron Brewster M.D. Patient Name: BRIE DUMONT MR#: [id number] : 1955 Exam Date: 05/04/2024 Ordering Doctor: [...] Treatments None Family Cancers None LOCATION: [facility] BREAST COMPOSITION: There are scattered areas [...] Signed By: 05/04/24 1100 DD/ 1058 TD/TT: General Operator: [place] [address] Mammography Report Signed Patient: BRIE DUMONT MR#: [id number] : 1955 Acct:[id number] Age/Sex: 68 / F ADM Date: 05/04/24 Loc: MAMMO Attending Dr: Per Brewster M.D. Ordering Physician: Myron Brewster M.D. Results: Date of Service: 05/04/24 Follow Up: Procedure(s): MM tomosynthesis screening BI Accession Number(s): [id number] cc: Myron Brewster M.D. Patient Name: BRIE DUMONT MR#: [id number] : 1955 Exam Date: 05/04/2024 Ordering Doctor: [...] Treatments None Family Cancers None LOCATION: [facility] BREAST COMPOSITION: There are scattered areas [...] Signed By: 05/04/24 1100 DD/ 1058 TD/TT: General Operator: ELEUTERIO RANDOM W or MICROSCOPIC Reviewed date:01/19/2025 10:00:55 PM Interpretation: Performing Lab: Notes/Report: [facility] , Color Urine LT. YELLOW YELLOW Clarity Urine CLEAR CLEAR Specific [place] Urine 1.020 1.005-1.025 pH Urine 7.5 5.0-9.0 Protein Urine NEGATIVE NEG/TRACE mg/dL Glucose Urine UA NEGATIVE NEGATIVE mg/dL Bilirubin Urine NEGATIVE NEGATIVE Ketones Urine NEGATIVE NEGATIVE mg/dL Blood Urine NEGATIVE NEGATIVE Nitrite Urine NEGATIVE NEGATIVE Urobilinogen Urine 0.2 0.2-1.0 EU/dL Leukocyte Esterase Urine NEGATIVE NEGATIVE WBC Urine NONE SEEN NONE SEEN #/HPF RBC Urine NONE SEEN 0-2 #/HPF Bacteria Urine TRACE NONE SEEN #/HPF Mucus Urine NONE SEEN NONE SEEN Squamous Epithelial Cell Urine NONE SEEN NONE/RARE #/LPF Crystals Seen? None Seen None Seen #/HPF Cast Seen? NONE SEEN NONE SEEN #/LPF Performing Lab: see note ML - [facility] LB Urine Culture - [facility] Reviewed date:01/22/2025 07:58:14 PM Interpretation: Performing Lab: Notes/Report: [facility] , Urine Culture - [facility] See Below For Report Urine Culture - [facility] No Growth 2 Days Urine Culture - [facility] Urine Culture - [facility] No Growth 2 Days Urine Culture - [facility] Testing performed a [facility] Urine Culture - [facility] No Growth 2 Days Urine Culture - [facility] [address] [place] [address] Urine Culture - [facility] No Growth 2 Days Performing Lab: see note ML - [facility] LB XR chest 2V Reviewed date:03/13/2024 11:51:02 AM Interpretation: Performing Lab: Notes/Report: Source Facility: [facility] [place] [address] [place] [address] XRay Report Signed Patient: BRIE DUMONT MR#: [id number] : 1955 Acct:[id number] Age/Sex: 68 / F ADM Date: 03/11/24 Loc: RAD Attending Dr: GISELE ANTONY Ordering Physician: GISELE ANTONY Date of Service: 03/11/24 Procedure(s): XR chest 2V Accession Number(s): [id number] cc: Myron Brewster M.D.; GISELE ANTONY [place] [address] Patient Name: BRIE DUMONT MRN: [facility]:[id number] date: 1955 Sex: F Assigned Patient Location: RAD Current Patient Location: Accession/Order Number: [id number] Exam Date: 03/11/2024 08:57 Report Date: 03/12/2024 [...] M.D. Signed By: 03/12/24530 DD/ 8 TD/TT: General Operator: [place] [address] XRay Report Signed Patient: BRIE DUMONT MR#: [id number] : 1955 Acct:[id number] Age/Sex: 68 / F ADM Date: 03/11/24 Loc: RAD Attending Dr: EDGARD ANTONY Ordering Physician: GISELE ANTONY Date of Service: 03/11/24 Procedure(s): XR leyla st 2V Accession Number(s): [id number] cc: Myron Brewster M.D. ; GISELE ANTONY [place] [id number] Patient Name: BRIE DUMONT MRN: [id number] date: 1955 Sex: F Assigned Patient Location: [facility] Current Patient Location: Accession/Order Number: [id number] Exam Date: 03/11/2024 08:57 Report Date: 03/12/2024 [...] Dictated By: Ulises Calderon M.D. Signed By: 03/12/2431 DD/ 8 TD/TT: General Operator: Reason For Referral No Information Medications Medication [...] 04/06/2023 Active Vitamin D (Cholecalciferol) 50 MCG (1999) 2 capsule Orally Once a day Active Tolterodine Tartrate ER 2 MG 1 capsule Orally Once a day for 30 days 01/30/2025 Active Immunizations Vaccine Route Administration Date Status Comme nts BCG Unknown 07/10/2014 Administered Flu, Fluad (54531) 65 yrs + High Dose Seasonal (6619-1953) Unknown 04/03/2022 Administered Flu, Fluad (20980) 65 yrs and older, single-dose syringe (9997-9237) IM Intramuscular 04/20/2024 Administered Flu, Flucelvax (32970) 2 yrs+, single-dose syringe (1500-2261) Unknown 05/30/2020 Administered Flu, Flucelvax (49943) 2 yrs+, single-dose syringe () Unknown 04/11/2021 Administered Flu, Fluzone High-Dose () (75246) 65 yrs+ Unknown 05/04/2023 Administered Hep A, [...] Status W/U Status Risk Notes Problem Sialolithiasis (34419752) Sialolithiasis (K11.5) Active confirmed Problem Senile osteoporosis (48873150) Senile osteoporosis (M81.0) Active confirmed Problem Gastroesophageal reflux disease (159464903) GERD (gastroesophageal reflux disease) (K21.9) Active confirmed Problem Bradycardia (91178014) Bradycardia (R00.1) Active confirmed Problem Plantar fasciitis (212519677) Plantar fasciitis (M72.2) Active confirmed Problem Osteoarthritis of left knee joint (133620663562779) Left knee DJD (M17.9) Active confirmed Problem Sialoadenitis (42268901) Sialoadenitis (K11.20) Active confirmed Vital Signs Blood pressure diastolic 84 mm Hg 01/30/2025 Height 64 in 01/30/2025 Blood pressure systolic 156 mm Hg 01/30/2025 Weight 178.6 lbs 01/30/2025 BMI 30.65 kg/m2 01/30/2025 Encounters Encounter Location Date Provider Diagnosis [facility] [address] [place] [address] 03/13/[address] [facility] [address] [place] [address] 05/17/2024 Marco Hoy Hypothyroid E03.9 [facility] [address] [place] [address] 06/27/2024 Marco Hoy [facility] [address] [place] [address] 10/21/2024 Marco Hoy Sialoadenitis K11.2 0 [facility] [address] [place] [address] 12/01/[address] [facility] [address] [place] [address] 12/30/2024 Marco Hoy Osteopenia M85.80 an d Medication management Z79.899 [facility] [address] [place] [address] 01/09/2025 Marco Hoy Flank pain R10.9 [facility] [address] [place] [address] 01/09/[address] [facility] [address] [place] [address] 01/19/2025 Marco Brewster UTI (urinary tract infection) N39.0 [facility] [address] [place] [address] 01/22/[address] [facility] [address] [place] [address] 01/30/2025 Marco Hoy UTI (urinary tract infection) N39.0 and Dysuria 788.[address] [place] [address] [place] [address] 04/20/2024 Marco Brewster Sialoadenitis K11.20 ; GERD (gastroesophageal reflux disease) K21.9 ; Bradycardia R00.1 ; Left knee DJD M17.9 and Encounter for immunization Z23 [place] [address] [place] [address] 11/29/2024 Marco Brewster Encounter for [employer] annual wellness exam Z00.00 and Senile osteoporosis M81.0 Assessments Encounter Date Diagnosis (ICD Code) Assessment Notes Treatment Notes Treatment Clinical Notes Section Notes 04/20/2024 Sialoadenitis (ICD-10 - K11.20) 04/20/2024 GERD (gastroesophageal reflux disease) (ICD-10 - K21.9) 04/20/2024 Bradycardia (ICD-10 - R00.1) 11/29/2024 Encounter for Medicare annual wellness exam (ICD-10 - Z00.00) 11/29/2024 Senile osteoporosis (ICD-10 - M81.0) 01/30/2025 UTI (urinary tract infection) (ICD-10 - N39.0) 01/30/2025 Dysuria (ICD9-CM - 788.1) 05/17/2024 Hypothyroid (ICD-10 - E03.9) 10/21/2024 Sialoadenitis [...] (COMPLETE METABOLIC PANEL) 4 UA (URINALYSIS, COMPLETE) 01/09/2025 UA (URINALYSIS, COMPLETE) 01/19/2025 HEMOGLOBIN A1C (GLYCO) 04/20/2024 IRON, TOTAL 04/20/2024 LIPID PANEL (CHOL/TRIG/HDL/LDL) 04/20/20 CBC WITH DIFF 04/20/2024 UA DIP NONAUTO WO MICRO (83932) - IN OFF ICE 01/30/2025 Urine Culture 01/19/2025 Urine Culture 01/09/2025 URINE MICROSCOPIC ONLY 01/19/2025 XR DEXA BONE DENSITY 11/29/2024 XR KNEE LT 3V 11/18/2022 THYROID PANEL (T4/TSH/FREE T3) 4 THYROID PANEL (T4/TSH/FREE T3) 4 US renal bladder 01/30/2025 Vitamin D 12/30/2024 Insurance Providers Payer Name Payer Address Payer Phone Subscriber Number Group Number Insured Name Patient Relationship to Insured Coverage Start Date Coverage End Date [employer] MED[employer]ARE ADV PLAN [address] [address] [place] [address] [phone] [id number] Brie Taylor Self - patient is the insured MEDIC[place] [address] [phone] [id number] Brie Taylor Self - patient is the insured Medical (General) History Medical History History ICD Code Arthritis of knee, left M17.12 Acid reflux K21.9 Bradycardia R00.1 Arthritis of knee, left M17.12 Age-related bone loss M85.80 Calculus in salivary duct K11.5 Surgical History Surgery Date(Month/Year) colonscopy 10/01/2022 left total hip arthropasty 10/11/2020
--- OUTSIDE RECORDS SUMMARY | 2025-02-03 08:17 | XMS_ITS | Encounter Summary ---
Author Organization [facility] Address [address] [facility] [place] [address] Care Team Providers Care Transfer Knitter Name Role Phone Myron Brewster MD Primary Care Provider [phone] Encounter Details Date Type Department Care Team (Late st Contact Info) Description 08/29/2024 Orders Only [facility] [address] [place] [address] Gordy Matthew MD [address] [place] [id number] Social History Tobacco Use Types Packs/Day Years [...] on filedocumented in this encounter Care Teams Transfer Knitter Relationship Specialty Start Date End Date Myron Brewster MD PCP - General Family Medicine 08/18/23 documented as of this encounter
--- OUTSIDE RECORDS SUMMARY | 2025-02-03 08:19 | XMS_ITS | CCD ---
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 Name Role Phone Olivia Dean Unavailable TIMMY TINSLEY Referring Unavailable TIMMY TINSLEY Attending Unavailable Aretha Brewster Primary Care Physician JESSICA PACHECO Attending Unavailable YAZ ., JESSICA Admitting Unavailable ZIEBER, DR NOÉ Pineda Consulting Unavailable HOY ., DR CARIAS [...] ., DR CARIAS Attending Unavailable ZIEBER, DR NOÉ Pineda Consulting Unavailable HOY ., DR CARIAS [...] Unavailable NILLLui Attending Unavailable Sarah Sargent Unavailable MD Aretha Brewster Primary Care Provider [phone] MD Gordy Matthew Attending Provider EUGENIO GARCIA Attending Unavailable EUGENIO GARCIA Attending Unavailable EUGENIO GARCIA Attending Unavailable EUGENIO GARCIA Attending Unavailable ARETHA BREWSTER Referring Unavailable Unavailable Primary Care Provider UnavailBRIAN Vázquez Referring Unavailable BRIAN JAMES Attending Unavailable Aretha Brewster MD Attending Provider [phone] Aretha Brewster Admitting Unavailable Aretha Brewster Attending Unavailable Aretha Brewster Admitting Unavailable Aretha Brewster Attending Unavailable Gordy Matthew Admitting Unavailable Gordy Matthew Attending Unavailable Aretha Brewster Primary Care Unavailable Allergies Allergy Classification Reported Allergen(s) Allergy Type Date of Onset Reaction(s) Facility (6 sources) Erythromycin; Translations: [erythromycin] Drug Allergy 4 GI Disturbance [facility] [place] (10 sources) Latex; Translations: [LATEX] Propensity to adverse reactions 2 Inflammatory dermatosis (disorder), Dermatitis, Hives [facility] (5 sources) Penicillin G Drug Allergy 3 anaphylaxis [facility] (3 sources) Penicillins; Translations: [PENICILLINS] Propensity to adverse reactions to drug (disorder) 2 Anaphylaxis (disorder) [facility] (6 sources) ERYTHROMYCIN BASE; Translations: [ERYTHROMYCIN BASE] Propensity to adverse reactions to drug (disorder) 2 GI upset [facility] (1 source) natural latex rubber Drug allergy (disorder) 3 [facility] Repository (1 source) Penicillin Drug Allergy [facility] (1 source) Latex Drug allergy (disorder) 3 [facility] (1 source) Penicillin Drug Allergy 3 [facility] Medications Current Medications Medication Drug [...] 1.5 mg/ml oral solution (1 source) Uncompetitive [employer]-[place] e 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, Sigma-1 Agonist Start: 06-14-2023 take 10 mL by mouth every eight hours [place] DM 7.5-7.5 MG/5ML 10 mL Orally every [...] Onset: 09-20-2024 Chronic Other aftercare (1 source) 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; Translations: [[facility]DC CURRENT USE OF ASPIRIN] Onset: 10-02-2022 Episodic [...] 03-24-2022 Episodic Other aftercare (1 source) 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; 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] Onset: 01-14-2022 Episodic Other bone disease and musculoskeletal deformities (1 source) Other specified disorders of bone density and structure, unspecified site; Translations: [[facility] D/O BONE DEN STRUCT UNS SITE] Onset: 05-01-2022 Episodic Other hematologic conditions (1 source) Elevated erythrocyte sedimentation rate; Translations: [Elevated erythrocyte sedimentation rate] Onset: 03-09-2024 Episodic Screening and history of mental health and substance abuse codes (1 source) Personal history of nicotine dependence; Translations: [PERSONAL HISTORY OF NICOTINE DEPEND] Onset: 03-26-2022 Episodic Superficial injury; contusion (1 source) Insect bite (nonvenomous), left lower leg, initial encounter Onset: 11-12-2021 Resolved: 11-12-2021 Episodic Results Test Name Value Interpretation Reference Range Facility Urine Cultureon 01-19-2025 Bacteria identified Cx Nom (U) No Growth 2 Days PERFORMED BY: [place] [id number] PATHOLOGIST SCIENTIFIC SOFTWARE DEVELOPER CHALO ALANIS M.D. Normal [facility] Comment on above: Performed By: #### C RP, CK, CBC, CMP, T4F, ESR, TSH3, ADDONUAPLUS #### [place] [address] [place] #### SPE, KARUNA,URINE, BIGG, HBCAB, ALDOLASE, RPR W RFX, HCV RX PCR, UPE RAND, HBSAB, QUANT TB, CHROMATIN, HBSAG #### [facility] , Urine Cultureon 01-09-2025 Bacteria identified Cx Nom (U) 15,000 colonies/ml mixed bacterial skin contaminants 2 Days PERFORMED BY: [place] [address] PATHOLOGIST SCIENTIFIC SOFTWARE DEVELOPER CHALO ALANIS M.D. Normal [facility] Comment on above: Performed By: #### C RP, CK, CBC, CMP, T4F, ESR, TSH3, ADDONUAPLUS #### [address] #### SPE, KARUNA,URINE, BIGG, HBCAB, ALDOLASE, RPR W RFX, HCV RX PCR, UPE RAND, HBSAB, QUANT TB, CHROMATIN, HBSAG #### [facility] , Urine cultureOrdered By: Kalyan Brewster on 01-09-2025 Bacteria identified Cx Nom (U) 2 Days [facility] XR HIP LT 2-3 VIEWS W OR [...] Price MD on 09/20/2024 3:18 PM Normal [facility] BIGG Antinuclear Antibodieson 03-09-2024 Antinuclear Abs, IFA Negative Normal . [facility] Comment on above: Result Comment: Nega tive <1:80 Borderline 1:80 Positive >1:80 ICAP nomenclature: AC-[id number] For more information about Hep-2 cell patterns use ANApatterns.org, the official website for the International Consensus on Antinuclear Antibody (BIGG) Patterns (ICAP). Performed at: - [facility] [id number] [employer]: Jasiel Key PhD, Phone: [phone] Performed By: #### C RP, CK, CBC, CMP, T4F, ESR, TSH3, ADDONUAPLUS #### [address] #### SPE, KARUNA,URINE, BIGG, HBCAB, ALDOLASE, RPR W RFX, HCV RX PCR, UPE RAND, HBSAB, QUANT TB, CHROMATIN, HBSAG #### [facility] , Alanine aminotransferase [En zymatic activity/volume] in Serum or PlasmaOrdered By: Gordy Matthew on 03-09-2024 ALT [Catalytic activity/Vol] 15 U/L Normal 7-52 [facility] Comment on above: Performed By: #### C RP, CK, CBC, CMP, T4F, ESR, TSH3, ADDONUAPLUS #### [place] [address] [place] #### SPE, KARUNA,URINE, BIGG, HBCAB, ALDOLASE, RPR W RFX, HCV RX PCR, UPE RAND, HBSAB, QUANT TB, CHROMATIN, HBSAG #### [facility] , Albumin [Mass/volume] in Ser um or Plasma by Bromocresol green (BCG) dye binding methoOrdered By: Gordy Matthew on 03-09-2024 Albumin BCG dye [Mass/Vol] 4.2 g/dL 3.5-5.7 [facility] Aldolaseon 03-09-2024 Aldolase 3.6 U/L Normal 3.3-10.3 [facility] Comment on above: Result Comment: Perf ormed at: - [facility] [address] [id number] [employer]: Jasiel Key PhD, Phone: [phone] PERFORMED BY: [place] [address] PATHOLOGIST SCIENTIFIC SOFTWARE DEVELOPER JOCELYN EDGE M.D. Performed By: #### C RP, CK, CBC, CMP, T4F, ESR, TSH3, ADDONUAPLUS #### [address] #### SPE, KARUNA,URINE, BIGG, HBCAB, ALDOLASE, RPR W RFX, HCV RX PCR, UPE RAND, HBSAB, QUANT TB, CHROMATIN, HBSAG #### [facility] , Alkaline phosphatase [Enzyma tic activity/volume] in Serum or PlasmaOrdered By: Gordy Matthew on 03-09-2024 ALP [Catalytic activity/Vol] 77 U/L Normal 34-104 [facility] Comment on above: Performed By: #### C RP, CK, CBC, CMP, T4F, ESR, TSH3, ADDONUAPLUS #### [place] [address] [place] #### SPE, KARUNA,URINE, BIGG, HBCAB, ALDOLASE, RPR W RFX, HCV RX PCR, UPE RAND, HBSAB, QUANT TB, CHROMATIN, HBSAG #### [facility] , Aspartate aminotransferase [ Enzymatic activity/volume] in Serum or PlasmaOrdered By: Gordy Matthew on 03-09-2024 AST [Catalytic activity/Vol] 13 U/L Normal 13-39 [facility] Comment on above: Performed By: #### C RP, CK, CBC, CMP, T4F, ESR, TSH3, ADDONUAPLUS #### [place] [address] [place] #### SPE, KARUNA,URINE, BIGG, HBCAB, ALDOLASE, RPR W RFX, HCV RX PCR, UPE RAND, HBSAB, QUANT TB, CHROMATIN, HBSAG #### [facility] , Automated basophil %Ordered By: Gordy Matthew on 03-09-2024 Basophils/100 WBC (Bld) 0.5 % Normal . [facility] Comment on above: Performed By: #### C RP, CK, CBC, CMP, T4F, ESR, TSH3, ADDONUAPLUS #### [facility] [address] [place] [address] [place] #### SPE, KARUNA,URINE, BIGG, HBCAB, ALDOLASE, RPR W RFX, HCV RX PCR, UPE RAND, HBSAB, QUANT TB, CHROMATIN, HBSAG #### [facility] , Automated basophil countOrde red By: Gordy Matthew on 03-09-2024 Basophils (Bld) [#/Vol] 0.1 10*3/uL Normal 0.0-0.2 [facility] Comment on above: Performed By: #### C RP, CK, CBC, CMP, T4F, ESR, TSH3, ADDONUAPLUS #### [facility] [address] [place] [address] [place] #### SPE, KARUNA,URINE, BIGG, HBCAB, ALDOLASE, RPR W RFX, HCV RX PCR, UPE RAND, HBSAB, QUANT TB, CHROMATIN, HBSAG #### [facility] , Automated blood monocyte cou ntOrdered By: Gordy Matthew on 03-09-2024 Monocytes (Bld) [#/Vol] 1.0 10*3/uL High 0.0-0.8 [facility] Comment on above: Performed By: #### C RP, CK, CBC, CMP, T4F, ESR, TSH3, ADDONUAPLUS #### [facility] [address] [place] [address] [place] #### SPE, KARUNA,URINE, BIGG, HBCAB, ALDOLASE, RPR W RFX, HCV RX PCR, UPE RAND, HBSAB, QUANT TB, CHROMATIN, HBSAG #### [facility] , Automated eosinophil %Ordere d By: Gordy Matthew on 03-09-2024 Eosinophils/100 WBC (Bld) 0.4 % Normal . [facility] Comment on above: Performed By: #### C RP, CK, CBC, CMP, T4F, ESR, TSH3, ADDONUAPLUS #### [facility] [address] [place] [address] #### SPE, KARUNA,URINE, BIGG, HBCAB, ALDOLASE, RPR W RFX, HCV RX PCR, UPE RAND, HBSAB, QUANT TB, CHROMATIN, HBSAG #### [facility] , Automated eosinophil countOr dered By: Gordy Matthew on 03-09-2024 Eosinophils (Bld) [#/Vol] 0.0 10*3/uL Normal 0.0-0.45 [facility] Comment on above: Performed By: #### C RP, CK, CBC, CMP, T4F, ESR, TSH3, ADDONUAPLUS #### [facility] [address] [place] [address] [place] #### SPE, KARUNA,URINE, BIGG, HBCAB, ALDOLASE, RPR W RFX, HCV RX PCR, UPE RAND, HBSAB, QUANT TB, CHROMATIN, HBSAG #### [facility] , Automated monocyte %Ordered By: Gordy Matthew on 03-09-2024 Monocytes/100 WBC (Bld) 8.5 % Normal . [facility] Comment on above: Performed By: #### C RP, CK, CBC, CMP, T4F, ESR, TSH3, ADDONUAPLUS #### [facility] [address] [place] [address] [place] #### SPE, KARUNA,URINE, BIGG, HBCAB, ALDOLASE, RPR W RFX, HCV RX PCR, UPE RAND, HBSAB, QUANT TB, CHROMATIN, HBSAG #### [facility] , Automated neutrophil %Ordere d By: Gordy Matthew on 03-09-2024 Neutrophils/100 WBC (Bld) 66.2 % Normal . [facility] Comment on above: Performed By: #### C RP, CK, CBC, CMP, T4F, ESR, TSH3, ADDONUAPLUS #### [facility] [address] [place] [address] [place] #### SPE, KARUNA,URINE, BIGG, HBCAB, ALDOLASE, RPR W RFX, HCV RX PCR, UPE RAND, HBSAB, QUANT TB, CHROMATIN, HBSAG #### [facility] , Bacteria [Presence] in Urine by AutomatedOrdered By: Gordy Matthew on 03-09-2024 Bacteria Auto Ql (U) Rare [HPF] None Seen [facility] Bilirubin Test strip Ql (U)O rdered By: Gordy Matthew on 03-09-2024 Bilirubin Ql (U) Negative Negative [facility] Bilirubin.total [Mass/volume ] in Serum or PlasmaOrdered By: Gordy Farooqrow on 03-09-2024 Bilirubin [Mass/Vol] 0.4 mg/dL Normal 0.3-1.0 [facility] Comment on above: Performed By: #### C RP, CK, CBC, CMP, T4F, ESR, TSH3, ADDONUAPLUS #### [place] [address] [place] #### SPE, KARUNA,URINE, BIGG, HBCAB, ALDOLASE, RPR W RFX, HCV RX PCR, UPE RAND, HBSAB, QUANT TB, CHROMATIN, HBSAG #### [facility] , C reactive protein [Mass/vol ume] in Serum or PlasmaOrdered By: Gordylarry Matthew on 03-09-2024 CRP [Mass/Vol] < 0.5 mg/dL 0.0-0.5 [facility] C-Reactive Proteinon 024 CRP [Mass/Vol] mg/L Normal 0.0-0.5 [facility] Comment on above: Performed By: #### C RP, CK, CBC, CMP, T4F, ESR, TSH3, ADDONUAPLUS #### [place] [address] [place] #### SPE, KARUNA,URINE, BIGG, HBCAB, ALDOLASE, RPR W RFX, HCV RX PCR, UPE RAND, HBSAB, QUANT TB, CHROMATIN, HBSAG #### [facility] , Calcium [Mass/volume] in Ser um or PlasmaOrdered By: Gordy Matthew on 03-09-2024 Calcium [Mass/Vol] 10.6 mg/dL High 8.6-10.3 [facility] Comment on above: Performed By: #### C RP, CK, CBC, CMP, T4F, ESR, TSH3, ADDONUAPLUS #### [facility] [address] [place] [address] #### SPE, KARUNA,URINE, BIGG, HBCAB, ALDOLASE, RPR W RFX, HCV RX PCR, UPE RAND, HBSAB, QUANT TB, CHROMATIN, HBSAG #### [facility] , Carbon dioxide, total [Moles /volume] in Serum or PlasmaOrdered By: Gordy Matthew on 03-09-2024 CO2 [Moles/Vol] 30.4 mmol/L Normal 21.0-31.[address] [facility] Comment on above: Performed By: #### C RP, CK, CBC, CMP, T4F, ESR, TSH3, ADDONUAPLUS #### [facility] [address] [place] [address] [place] #### SPE, KARUNA,URINE, BIGG, HBCAB, ALDOLASE, RPR W RFX, HCV RX PCR, UPE RAND, HBSAB, QUANT TB, CHROMATIN, HBSAG #### [facility] , Chloride [Moles/volume] in S billy or PlasmaOrdered By: Gordy Matthew on 03-09-2024 Chloride [Moles/Vol] 103 mmol/L Normal 98-107 [facility] Comment on above: Performed By: #### C RP, CK, CBC, CMP, T4F, ESR, TSH3, ADDONUAPLUS #### [facility] [address] [place] [address] [place] #### SPE, KARUNA,URINE, BIGG, HBCAB, ALDOLASE, RPR W RFX, HCV RX PCR, UPE RAND, HBSAB, QUANT TB, CHROMATIN, HBSAG #### [facility] , Chromatin Antibodyon 024 Chromatin Antibody <0.2 Normal 0.0-0.9 [facility] Comment on above: Result Comment: Perf ormed at: - [facility] [address] [id number] [employer]: Jasiel Key PhD, Phone: [phone] Performed By: #### C RP, CK, CBC, CMP, T4F, ESR, TSH3, ADDONUAPLUS #### [facility] [address] [place] [address] #### SPE, KARUNA,URINE, BIGG, HBCAB, ALDOLASE, RPR W RFX, HCV RX PCR, UPE RAND, HBSAB, QUANT TB, CHROMATIN, HBSAG #### [facility] , Color of Urine by AutoOrdere d By: Gordy Matthew on 03-09-2024 Color (U) Light-yellow Normal Yellow [facility] Comment on above: Order Comment: Name Collection Type:: Clean-Voided Midstream Performed By: #### C RP, CK, CBC, CMP, T4F, ESR, TSH3, ADDONUAPLUS #### [facility] [address] [place] [address] [place] #### SPE, KARUNA,URINE, BIGG, HBCAB, ALDOLASE, RPR W RFX, HCV RX PCR, UPE RAND, HBSAB, QUANT TB, CHROMATIN, HBSAG #### [facility] , Complete Blood Count Auto Di ffon 03-09-2024 Mean Corpuscular HGB Conc 33.0 g/dL Normal 32.0-35.0 [facility] Comment on above: Performed By: #### C RP, CK, CBC, CMP, T4F, ESR, TSH3, ADDONUAPLUS #### [facility] [address] [place] [address] [place] #### SPE, KARUNA,URINE, BIGG, HBCAB, ALDOLASE, RPR W RFX, HCV RX PCR, UPE RAND, HBSAB, QUANT TB, CHROMATIN, HBSAG #### [facility] , NRBC% 0.1 /100{WBC} Normal 0-0.5 [facility] Comment on above: Performed By: #### C RP, CK, CBC, CMP, T4F, ESR, TSH3, ADDONUAPLUS #### [place] [address] [place] #### SPE, KARUNA,URINE, BIGG, HBCAB, ALDOLASE, RPR W RFX, HCV RX PCR, UPE RAND, HBSAB, QUANT TB, CHROMATIN, HBSAG #### [facility] , Comprehensive Metabolic Pane erika 03-09-2024 Albumin [Mass/Vol] 4.2 g/dL Normal 3.5-5.7 [facility] Comment on above: Performed By: #### C RP, CK, CBC, CMP, T4F, ESR, TSH3, ADDONUAPLUS #### [place] [address] [place] #### SPE, KARUNA,URINE, BIGG, HBCAB, ALDOLASE, RPR W RFX, HCV RX PCR, UPE RAND, HBSAB, QUANT TB, CHROMATIN, HBSAG #### [facility] , GFR/1.73 sq M.predicted MDRD (S/P/Bld) [Vol rate/Area] mL/min/{1.73_m2} Normal [facility] Comment on above: Performed By: #### C RP, CK, CBC, CMP, T4F, ESR, TSH3, ADDONUAPLUS #### [place] [address] [place] #### SPE, KARUNA,URINE, BIGG, HBCAB, ALDOLASE, RPR W RFX, HCV RX PCR, UPE RAND, HBSAB, QUANT TB, CHROMATIN, HBSAG #### [facility] , Creatine kinase [Enzymatic a ctivity/volume] in Serum or PlasmaOrdered By: Gordy Matthew on 03-09-2024 CK [Catalytic activity/Vol] 25 U/L Low 30-223 [facility] Comment on above: Result Comment: PERF ORMED BY: [address] [id number] PATHOLOGIST SCIENTIFIC SOFTWARE DEVELOPER JOCELYN EDGE M.D. Performed By: #### C RP, CK, CBC, CMP, T4F, ESR, TSH3, ADDONUAPLUS #### [address] #### SPE, KARUNA,URINE, BIGG, HBCAB, ALDOLASE, RPR W RFX, HCV RX PCR, UPE RAND, HBSAB, QUANT TB, CHROMATIN, HBSAG #### [facility] , Creatinine [Mass/volume] in Serum or PlasmaOrdered By: Gordy Matthew on 03-09-2024 Creatinine [Mass/Vol] 0.80 mg/dL Normal 0.60-1.20 [facility] Comment on above: Performed By: #### C RP, CK, CBC, CMP, T4F, ESR, TSH3, ADDONUAPLUS #### [address] #### SPE, KARUNA,URINE, BIGG, HBCAB, ALDOLASE, RPR W RFX, HCV RX PCR, UPE RAND, HBSAB, QUANT TB, CHROMATIN, HBSAG #### [facility] , Dipstick and Microscopicon 0 03-09-2024 Bacteria,Urine Rare Normal None Seen [facility] Comment on above: Order Comment: Name Collection Type:: Clean-Voided Midstream Performed By: #### C RP, CK, CBC, CMP, T4F, ESR, TSH3, ADDONUAPLUS #### [address] #### SPE, KARUNA,URINE, BIGG, HBCAB, ALDOLASE, RPR W RFX, HCV RX PCR, UPE RAND, HBSAB, QUANT TB, CHROMATIN, HBSAG #### [facility] , Bilirubin,Urine Negative Normal Negative [facility] Comment on above: Order Comment: Name Collection Type:: Clean-Voided Midstream Performed By: #### C RP, CK, CBC, CMP, T4F, ESR, TSH3, ADDONUAPLUS #### [address] #### SPE, KARUNA,URINE, BIGG, HBCAB, ALDOLASE, RPR W RFX, HCV RX PCR, UPE RAND, HBSAB, QUANT TB, CHROMATIN, HBSAG #### [facility] , Glucose Ql (U) Normal Normal Normal [facility] Comment on above: Order Comment: Name Collection Type:: Clean-Voided Midstream Performed By: #### C RP, CK, CBC, CMP, T4F, ESR, TSH3, ADDONUAPLUS #### [address] #### SPE, KARUNA,URINE, BIGG, HBCAB, ALDOLASE, RPR W RFX, HCV RX PCR, UPE RAND, HBSAB, QUANT TB, CHROMATIN, HBSAG #### [facility] , Hyaline Casts,Urine None Normal 0-8 [facility] Comment on above: Order Comment: Name Collection Type:: Clean-Voided Midstream Performed By: #### C RP, CK, CBC, CMP, T4F, ESR, TSH3, ADDONUAPLUS #### [address] #### SPE, KARUNA,URINE, BIGG, HBCAB, ALDOLASE, RPR W RFX, HCV RX PCR, UPE RAND, HBSAB, QUANT TB, CHROMATIN, HBSAG #### [facility] , Mucus,Urine Rare Normal [facility] Comment on above: Order Comment: Name Collection Type:: Clean-Voided Midstream Result Comment: PERF ORMED BY: [place] [address] PATHOLOGIST SCIENTIFIC SOFTWARE DEVELOPER JOCELYN EDGE M.D. Performed By: #### C RP, CK, CBC, CMP, T4F, ESR, TSH3, ADDONUAPLUS #### [address] #### SPE, KARUNA,URINE, BIGG, HBCAB, ALDOLASE, RPR W RFX, HCV RX PCR, UPE RAND, HBSAB, QUANT TB, CHROMATIN, HBSAG #### [facility] , Nitrite,Urine Negative Normal Negative [facility] Comment on above: Order Comment: Name Collection Type:: Clean-Voided Midstream Performed By: #### C RP, CK, CBC, CMP, T4F, ESR, TSH3, ADDONUAPLUS #### [address] #### SPE, KARUNA,URINE, BIGG, HBCAB, ALDOLASE, RPR W RFX, HCV RX PCR, UPE RAND, HBSAB, QUANT TB, CHROMATIN, HBSAG #### [facility] , Occult Blood,Urine Negative Normal Negative [facility] Comment on above: Order Comment: Name Collection Type:: Clean-Voided Midstream Performed By: #### C RP, CK, CBC, CMP, T4F, ESR, TSH3, ADDONUAPLUS #### [address] #### SPE, KARUNA,URINE, BIGG, HBCAB, ALDOLASE, RPR W RFX, HCV RX PCR, UPE RAND, HBSAB, QUANT TB, CHROMATIN, HBSAG #### [facility] , Protein,Urine Negative Normal Negative [facility] Comment on above: Order Comment: Name Collection Type:: Clean-Voided Midstream Performed By: #### C RP, CK, CBC, CMP, T4F, ESR, TSH3, ADDONUAPLUS #### [address] #### SPE, KARUNA,URINE, BIGG, HBCAB, ALDOLASE, RPR W RFX, HCV RX PCR, UPE RAND, HBSAB, QUANT TB, CHROMATIN, HBSAG #### [facility] , RBC,Urine 1-2 Normal 0-4 [facility] Comment on above: Order Comment: Name Collection Type:: Clean-Voided Midstream Performed By: #### C RP, CK, CBC, CMP, T4F, ESR, TSH3, ADDONUAPLUS #### [address] #### SPE, KARUNA,URINE, BIGG, HBCAB, ALDOLASE, RPR W RFX, HCV RX PCR, UPE RAND, HBSAB, QUANT TB, CHROMATIN, HBSAG #### [facility] , Specificy [place],Urine 1.013 Normal 1.001-1.030 [facility] Comment on above: Order Comment: Name Collection Type:: Clean-Voided Midstream Performed By: #### C RP, CK, CBC, CMP, T4F, ESR, TSH3, ADDONUAPLUS #### [address] #### SPE, KARUNA,URINE, BIGG, HBCAB, ALDOLASE, RPR W RFX, HCV RX PCR, UPE RAND, HBSAB, QUANT TB, CHROMATIN, HBSAG #### [facility] , Urobilinogen,Urine Normal Normal Normal [facility] Comment on above: Order Comment: Name Collection Type:: Clean-Voided Midstream Performed By: #### C RP, CK, CBC, CMP, T4F, ESR, TSH3, ADDONUAPLUS #### [address] #### SPE, KARUNA,URINE, BIGG, HBCAB, ALDOLASE, RPR W RFX, HCV RX PCR, UPE RAND, HBSAB, QUANT TB, CHROMATIN, HBSAG #### [facility] , WBC,Urine 3-4 Normal 0-4 [facility] Comment on above: Order Comment: Name Collection Type:: Clean-Voided Midstream Performed By: #### C RP, CK, CBC, CMP, T4F, ESR, TSH3, ADDONUAPLUS #### [address] #### SPE, KARUNA,URINE, BIGG, HBCAB, ALDOLASE, RPR W RFX, HCV RX PCR, UPE RAND, HBSAB, QUANT TB, CHROMATIN, HBSAG #### [facility] , Epithelial cells.squamous [# /area] in Urine sediment by Automated countOrdered By: Gordy Matthew on 03-09-2024 Epithelial cells.squamous Auto (Urine sed) [#/Area] N/A [facility] Erythrocyte Sedimentation Ra conchita 03-09-2024 ESR (Bld) [Velocity] 25 mm/h Normal 0-29 [facility] Comment on above: Result Comment: PERF ORMED BY: [place] [address] PATHOLOGIST SCIENTIFIC SOFTWARE DEVELOPER JOCELYN EDGE M.D. Performed By: #### C RP, CK, CBC, CMP, T4F, ESR, TSH3, ADDONUAPLUS #### [facility] [address] [place] [address] #### SPE, KARUNA,URINE, BIGG, HBCAB, ALDOLASE, RPR W RFX, HCV RX PCR, UPE RAND, HBSAB, QUANT TB, CHROMATIN, HBSAG #### [facility] , Erythrocyte distribution wid th [Ratio] by Automated countOrdered By: Gordy Matthew on 03-09-2024 Erythrocyte distribution width (RBC) [Ratio] 14.1 % Normal 11.9-15.3 [facility] Comment on above: Performed By: #### C RP, CK, CBC, CMP, T4F, ESR, TSH3, ADDONUAPLUS #### [facility] [address] [place] [address] #### SPE, KARUNA,URINE, BIGG, HBCAB, ALDOLASE, RPR W RFX, HCV RX PCR, UPE RAND, HBSAB, QUANT TB, CHROMATIN, HBSAG #### [facility] , Erythrocyte sedimentation ra te by Photometric methodOrdered By: Gordy Matthew on 03-09-2024 ESR Photometric method (Bld) [Velocity] 25 mm/hr 0-29 [facility] Erythrocytes [#/area] in Uri ne sediment by Automated countOrdered By: Gordy Matthew on 03-09-2024 RBC Auto (Urine sed) [#/Area] 1-2 [HPF] 0-4 [facility] Erythrocytes [#/volume] in B lood by Automated countOrdered By: Gordy Matthew on 03-09-2024 RBC (Bld) [#/Vol] 4.71 10*6/uL Normal 3.60-5.00 [facility] Comment on above: Performed By: #### C RP, CK, CBC, CMP, T4F, ESR, TSH3, ADDONUAPLUS #### [facility] [address] #### SPE, KARUNA,URINE, BIGG, HBCAB, ALDOLASE, RPR W RFX, HCV RX PCR, UPE RAND, HBSAB, QUANT TB, CHROMATIN, HBSAG #### [facility] , Glucose [Mass/volume] in Ser um or PlasmaOrdered By: Gordy Matthew on 03-09-2024 Glucose [Mass/Vol] 100 mg/dL Normal 70-100 [facility] Comment on above: ADA recommended refe rence rangeRandom Glucose Reference Range is dependent on time and content of last meal. Glucose of more than 200 mg/dL in a nonstressed, ambulatory subject supports the diagnosis of Diabetes Mellitus. Result Comment: Rock om Glucose Reference Range is dependent on time and content of last meal. Glucose of more than 200 mg/dL in a nonstressed, ambulatory subject supports the diagnosis of Diabetes Mellitus. ADA recommended reference range Performed By: #### C RP, CK, CBC, CMP, T4F, ESR, TSH3, ADDONUAPLUS #### [place] [address] [place] #### SPE, KARUNA,URINE, BIGG, HBCAB, ALDOLASE, RPR W RFX, HCV RX PCR, UPE RAND, HBSAB, QUANT TB, CHROMATIN, HBSAG #### [facility] , Glucose [Mass/volume] in Uri ne by Test stripOrdered By: Gordy Matthew on 03-09-2024 Glucose Test strip (U) [Mass/Vol] Normal mg/dL Normal [facility] Hematocrit [Volume Fraction] of Blood by Automated countOrdered By: Gordy Matthew on 03-09-2024 Hematocrit (Bld) [Volume fraction] 41.1 % Normal 34.0-46.4 [facility] Comment on above: Performed By: #### C RP, CK, CBC, CMP, T4F, ESR, TSH3, ADDONUAPLUS #### [facility] [address] [place] [address] #### SPE, KARUNA,URINE, BIGG, HBCAB, ALDOLASE, RPR W RFX, HCV RX PCR, UPE RAND, HBSAB, QUANT TB, CHROMATIN, HBSAG #### [facility] , Hemoglobin Test strip Ql (U) Ordered By: Gordy Matthew on 03-09-2024 Hemoglobin Ql (U) Negative Negative [facility] Hemoglobin [Mass/volume] in BloodOrdered By: Gordy Vipul on 03-09-2024 Hemoglobin (Bld) [Mass/Vol] 13.6 g/dL Normal 11.8-15.4 [facility] Comment on above: Performed By: #### C RP, CK, CBC, CMP, T4F, ESR, TSH3, ADDONUAPLUS #### [address] #### SPE, KARUNA,URINE, BIGG, HBCAB, ALDOLASE, RPR W RFX, HCV RX PCR, UPE RAND, HBSAB, QUANT TB, CHROMATIN, HBSAG #### [facility] , Hep C Ab wRfx to Qnt PCRon 0 03-09-2024 Hepatitis C Virus Antibody Non-Reactive Normal Non Reactive [facility] Comment on above: Performed By: #### C RP, CK, CBC, CMP, T4F, ESR, TSH3, ADDONUAPLUS #### [address] #### SPE, KARUNA,URINE, BIGG, HBCAB, ALDOLASE, RPR W RFX, HCV RX PCR, UPE RAND, HBSAB, QUANT TB, CHROMATIN, HBSAG #### [facility] , Interpretation Hepatitis C Comment Normal . [facility] Comment on above: Result Comment: Not infected with HCV unless early or acute infection is suspected (which may be delayed in an immunocompromised individual), or other evidence exists to indicate HCV infection. Performed By: #### C RP, CK, CBC, CMP, T4F, ESR, TSH3, ADDONUAPLUS #### [place] [address] [place] #### SPE, KARUNA,URINE, BIGG, HBCAB, ALDOLASE, RPR W RFX, HCV RX PCR, UPE RAND, HBSAB, QUANT TB, CHROMATIN, HBSAG #### [facility] , Hepatitis B Core Antibodyon 03-09-2024 Hepatitis B Core Antibody Negative Normal Negative [facility] Comment on above: Result Comment: Perf ormed at: [facility] [address] [id number] [employer]: Jasiel Key PhD, Phone: [phone] Performed By: #### C RP, CK, CBC, CMP, T4F, ESR, TSH3, ADDONUAPLUS #### [place] [address] [place] #### SPE, KARUNA,URINE, BIGG, HBCAB, ALDOLASE, RPR W RFX, HCV RX PCR, UPE RAND, HBSAB, QUANT TB, CHROMATIN, HBSAG #### [facility] , Hepatitis B Surface Antibody on 03-09-2024 Hepatitis B Surface Antibody Non-Reactive Normal . [facility] Comment on above: Result Comment: Non Reactive: Not immune to HBV infection. Equivocal: Unable to determine if anti-HBs is present at levels consistent with immunity. Reactive: Anti-HBs concentration detected at greater than 10 mIU/mL. Individual is considered to be immune to infection with HBV. Performed By: #### C RP, CK, CBC, CMP, T4F, ESR, TSH3, ADDONUAPLUS #### [place] [address] [place] #### SPE, KARUNA,URINE, BIGG, HBCAB, ALDOLASE, RPR W RFX, HCV RX PCR, UPE RAND, HBSAB, QUANT TB, CHROMATIN, HBSAG #### [facility] , Hepatitis B Surface Antigeno n 03-09-2024 HBsAg Screen Negative Normal Negative [facility] Comment on above: Result Comment: PERF ORMED BY: [place] [id number] PATHOLOGIST SCIENTIFIC SOFTWARE DEVELOPER JOCELYN EDGE M.D. Performed By: #### C RP, CK, CBC, CMP, T4F, ESR, TSH3, ADDONUAPLUS #### [address] #### SPE, KARUNA,URINE, BIGG, HBCAB, ALDOLASE, RPR W RFX, HCV RX PCR, UPE RAND, HBSAB, QUANT TB, CHROMATIN, HBSAG #### [facility] , Hyaline casts [#/area] in Ur ine sediment by Automated countOrdered By: Gordy Matthew on 03-09-2024 Hyaline casts Auto (Urine sed) [#/Area] None [LPF] 0-8 [facility] Immunofixation, (KARUNA), Urine on 03-09-2024 Immunofixation, (KARUNA), Urine Comment Normal . [facility] Comment on above: Result Comment: No m onoclonality detected. Performed at: - [facility] [id number] [employer]: Jasiel Key PhD, Phone: [phone] Performed By: #### C RP, CK, CBC, CMP, T4F, ESR, TSH3, ADDONUAPLUS #### [place] [address] [place] #### SPE, KARUNA,URINE, BIGG, HBCAB, ALDOLASE, RPR W RFX, HCV RX PCR, UPE RAND, HBSAB, QUANT TB, CHROMATIN, HBSAG #### [facility] , Ketones [Presence] in Urine by Test stripOrdered By: Gordy Matthew on 03-09-2024 Ketones Ql (U) Negative Normal Negative [facility] Comment on above: Order Comment: Name Collection Type:: Clean-Voided Midstream Performed By: #### C RP, CK, CBC, CMP, T4F, ESR, TSH3, ADDONUAPLUS #### [facility] [address] [place] [address] [place] #### SPE, KARUNA,URINE, BIGG, HBCAB, ALDOLASE, RPR W RFX, HCV RX PCR, UPE RAND, HBSAB, QUANT TB, CHROMATIN, HBSAG #### [facility] , Leukocyte esterase [Presence ] in Urine by Test stripOrdered By: Gordy Matthew on 03-09-2024 Leukocyte esterase Test strip Ql (U) Negative Normal Negative [facility] Comment on above: Order Comment: Name Collection Type:: Clean-Voided Midstream Performed By: #### C RP, CK, CBC, CMP, T4F, ESR, TSH3, ADDONUAPLUS #### [facility] [address] [place] [address] [place] #### SPE, KARUNA,URINE, BIGG, HBCAB, ALDOLASE, RPR W RFX, HCV RX PCR, UPE RAND, HBSAB, QUANT TB, CHROMATIN, HBSAG #### [facility] , Leukocytes [#/area] in Urine sediment by Automated countOrdered By: Gordy Matthew on 03-09-2024 WBC Auto (Urine sed) [#/Area] 3-4 [HPF] 0-4 [facility] Leukocytes [#/volume] correc [place] for nucleated erythrocytes in Blood by Automated counOrdered By: Gordy Matthew on 03-09-2024 WBC corrected for nucl RBC Auto (Bld) [#/Vol] 11.4 10*3/uL 3.8-11.6 [facility] Leukocytes [#/volume] in Blo od by Automated countOrdered By: Gordy Matthew on 03-09-2024 WBC (Bld) [#/Vol] 11.4 10*3/uL Normal 3.8-11.6 [facility] Comment on above: Performed By: #### C RP, CK, CBC, CMP, T4F, ESR, TSH3, ADDONUAPLUS #### [place] [address] [place] #### SPE, KARUNA,URINE, BIGG, HBCAB, ALDOLASE, RPR W RFX, HCV RX PCR, UPE RAND, HBSAB, QUANT TB, CHROMATIN, HBSAG #### [facility] , Lymphocytes [#/volume] in Bl ood by Automated countOrdered By: Gordy Matthew on 03-09-2024 Lymphocytes (Bld) [#/Vol] 2.8 10*3/uL Normal 1.00-4.8 [facility] Comment on above: Performed By: #### C RP, CK, CBC, CMP, T4F, ESR, TSH3, ADDONUAPLUS #### [address] #### SPE, KARUNA,URINE, BIGG, HBCAB, ALDOLASE, RPR W RFX, HCV RX PCR, UPE RAND, HBSAB, QUANT TB, CHROMATIN, HBSAG #### [facility] , Lymphocytes/100 leukocytes i n Blood by Automated countOrdered By: Gordy Matthew on 03-09-2024 Lymphocytes/100 WBC (Bld) 24.4 % Normal . [facility] Comment on above: Performed By: #### C RP, CK, CBC, CMP, T4F, ESR, TSH3, ADDONUAPLUS #### [place] [address] [place] #### SPE, KARUNA,URINE, BIGG, HBCAB, ALDOLASE, RPR W RFX, HCV RX PCR, UPE RAND, HBSAB, QUANT TB, CHROMATIN, HBSAG #### [facility] , MCH [Entitic mass] by Automa dakotah countOrdered By: Gordy Matthew on 03-09-2024 MCH (RBC) [Entitic mass] 28.8 pg Normal 24.7-34.3 [facility] Comment on above: Performed By: #### C RP, CK, CBC, CMP, T4F, ESR, TSH3, ADDONUAPLUS #### [place] [address] [place] #### SPE, KARUNA,URINE, BIGG, HBCAB, ALDOLASE, RPR W RFX, HCV RX PCR, UPE RAND, HBSAB, QUANT TB, CHROMATIN, HBSAG #### [facility] , MCHC Auto (RBC) [Mass/Vol]Or dered By: Gordy Matthew on 03-09-2024 MCHC (RBC) [Mass/Vol] 33.0 g/dL 32.0-35.0 [facility] MCV [Entitic volume] by Auto mated countOrdered By: Gordy Matthew on 03-09-2024 MCV (RBC) [Entitic vol] 87.3 fL Normal 80-100 F [facility] Comment on above: Performed By: #### C RP, CK, CBC, CMP, T4F, ESR, TSH3, ADDONUAPLUS #### [facility] [address] [place] [address] #### SPE, KARUNA,URINE, BIGG, HBCAB, ALDOLASE, RPR W RFX, HCV RX PCR, UPE RAND, HBSAB, QUANT TB, CHROMATIN, HBSAG #### [facility] , Mucus [Presence] in Urine by AutomatedOrdered By: Gordy Farooqrow on 03-09-2024 Mucus Auto Ql (U) Rare [LPF] [facility] Neutrophils [#/volume] in Bl ood by Automated countOrdered By: Gordy Matthew on 03-09-2024 Neutrophils (Bld) [#/Vol] 7.5 10*3/uL Normal 1.8-7.7 [facility] Comment on above: Performed By: #### C RP, CK, CBC, CMP, T4F, ESR, TSH3, ADDONUAPLUS #### [facility] [address] [place] [address] [place] #### SPE, KARUNA,URINE, BIGG, HBCAB, ALDOLASE, RPR W RFX, HCV RX PCR, UPE RAND, HBSAB, QUANT TB, CHROMATIN, HBSAG #### [facility] , Nitrite Test strip Ql (U)Ord ered By: Gordy Farooqrow on 03-09-2024 Nitrite Ql (U) Negative Negative [facility] No Panel InformationOrdered By: Gordy Matthew on 03-09-2024 Estimated GFR (CKD-EPI) > 60.0 mL/Min [facility] Creatinine Clearance (Chem N/A [facility] Nucleated erythrocytes [Pres ence] in Blood by Automated countOrdered By: Gordy Matthew on 03-09-2024 Nucleated RBC Auto Ql (Bld) 0.1 /100{WBC} 0-0.5 [facility] Platelet mean volume [Entiti c volume] in Blood by Automated countOrdered By: Gordy Matthew on 03-09-2024 Platelet mean volume (Bld) [Entitic vol] 8.3 fL Normal 6.3-10.7 [facility] Comment on above: Performed By: #### C RP, CK, CBC, CMP, T4F, ESR, TSH3, ADDONUAPLUS #### [facility] [address] [place] [address] #### SPE, KARUNA,URINE, BIGG, HBCAB, ALDOLASE, RPR W RFX, HCV RX PCR, UPE RAND, HBSAB, QUANT TB, CHROMATIN, HBSAG #### [facility] , Platelets [#/volume] in Bloo d by Automated countOrdered By: Gordy Matthew on 03-09-2024 Platelets (Bld) [#/Vol] 332 10*3/uL Normal 150-450 [facility] Comment on above: Performed By: #### C RP, CK, CBC, CMP, T4F, ESR, TSH3, ADDONUAPLUS #### [facility] [address] [place] [address] [place] #### SPE, KARUNA,URINE, BIGG, HBCAB, ALDOLASE, RPR W RFX, HCV RX PCR, UPE RAND, HBSAB, QUANT TB, CHROMATIN, HBSAG #### [facility] , Potassium [Moles/volume] in Serum or PlasmaOrdered By: Gordy Matthew on 03-09-2024 Potassium [Moles/Vol] 4.2 mmol/L Normal 3.5-5.1 [facility] Comment on above: Performed By: #### C RP, CK, CBC, CMP, T4F, ESR, TSH3, ADDONUAPLUS #### [facility] [address] [place] [address] [place] #### SPE, KARUNA,URINE, BIGG, HBCAB, ALDOLASE, RPR W RFX, HCV RX PCR, UPE RAND, HBSAB, QUANT TB, CHROMATIN, HBSAG #### [facility] , Protein Electro, Random Urin krysten 03-09-2024 Albumin, Urine 15.5 % Normal . [facility] Comment on above: Performed By: #### C RP, CK, CBC, CMP, T4F, ESR, TSH3, ADDONUAPLUS #### [address] #### SPE, KARUNA,URINE, BIGG, HBCAB, ALDOLASE, RPR W RFX, HCV RX PCR, UPE RAND, HBSAB, QUANT TB, CHROMATIN, HBSAG #### [facility] , Osqsz-5-Xdvzepvs, Urine 5.6 % Normal . [facility] Comment on above: Performed By: #### C RP, CK, CBC, CMP, T4F, ESR, TSH3, ADDONUAPLUS #### [address] #### SPE, KARUNA,URINE, BIGG, HBCAB, ALDOLASE, RPR W RFX, HCV RX PCR, UPE RAND, HBSAB, QUANT TB, CHROMATIN, HBSAG #### [facility] , Ecsyk-6-Elshrogi, Urine 21.4 % Normal . [facility] Comment on above: Performed By: #### C RP, CK, CBC, CMP, T4F, ESR, TSH3, ADDONUAPLUS #### [address] #### SPE, KARUNA,URINE, BIGG, HBCAB, ALDOLASE, RPR W RFX, HCV RX PCR, UPE RAND, HBSAB, QUANT TB, CHROMATIN, HBSAG #### [facility] , Beta Globulin, Urine 31.2 % Normal . [facility] Comment on above: Performed By: #### C RP, CK, CBC, CMP, T4F, ESR, TSH3, ADDONUAPLUS #### [address] #### SPE, KARUNA,URINE, BIGG, HBCAB, ALDOLASE, RPR W RFX, HCV RX PCR, UPE RAND, HBSAB, QUANT TB, CHROMATIN, HBSAG #### [facility] , Gamma Globulin, Urine 26.4 % Normal . [facility] Comment on above: Performed By: #### C RP, CK, CBC, CMP, T4F, ESR, TSH3, ADDONUAPLUS #### [address] #### SPE, KARUNA,URINE, BIGG, HBCAB, ALDOLASE, RPR W RFX, HCV RX PCR, UPE RAND, HBSAB, QUANT TB, CHROMATIN, HBSAG #### [facility] , M-Leonid % Not Observed Normal Not Observed [facility] Comment on above: Performed By: #### C RP, CK, CBC, CMP, T4F, ESR, TSH3, ADDONUAPLUS #### [address] #### SPE, KARUNA,URINE, BIGG, HBCAB, ALDOLASE, RPR W RFX, HCV RX PCR, UPE RAND, HBSAB, QUANT TB, CHROMATIN, HBSAG #### [facility] , Please Note: Comment Normal . [facility] Comment on above: Result Comment: Prot ein electrophoresis scan will follow via computer, mail, or medical transcription supervisor delivery. PERFORMED BY: [place] [id number] PATHOLOGIST SCIENTIFIC SOFTWARE DEVELOPER JOCELYN EDGE M.D. Performed By: #### C RP, CK, CBC, CMP, T4F, ESR, TSH3, ADDONUAPLUS #### [place] [address] [place] #### SPE, KARUNA,URINE, BIGG, HBCAB, ALDOLASE, RPR W RFX, HCV RX PCR, UPE RAND, HBSAB, QUANT TB, CHROMATIN, HBSAG #### [facility] , Protein (U) [Mass/Vol] 4.1 mg/dL Normal Not Estab. Th [facility] Comment on above: Performed By: #### C RP, CK, CBC, CMP, T4F, ESR, TSH3, ADDONUAPLUS #### [address] #### SPE, KARUNA,URINE, BIGG, HBCAB, ALDOLASE, RPR W RFX, HCV RX PCR, UPE RAND, HBSAB, QUANT TB, CHROMATIN, HBSAG #### [facility] , Protein Electrophoresis, Ser umon 03-09-2024 Albumin [Mass/Vol] 3.8 g/dL Normal 2.9-4.4 [facility] Comment on above: Performed By: #### C RP, CK, CBC, CMP, T4F, ESR, TSH3, ADDONUAPLUS #### [address] #### SPE, KARUNA,URINE, BIGG, HBCAB, ALDOLASE, RPR W RFX, HCV RX PCR, UPE RAND, HBSAB, QUANT TB, CHROMATIN, HBSAG #### [facility] , Albumin/Globulin [Mass ratio] 1.2 {ratio} Normal 0.7-1.7 [facility] Comment on above: Performed By: #### C RP, CK, CBC, CMP, T4F, ESR, TSH3, ADDONUAPLUS #### [place] [address] [place] #### SPE, KARUNA,URINE, BIGG, HBCAB, ALDOLASE, RPR W RFX, HCV RX PCR, UPE RAND, HBSAB, QUANT TB, CHROMATIN, HBSAG #### [facility] , Viknl-3-Erarzhdp 0.2 g/dL Normal 0.0-0.4 [facility] Comment on above: Performed By: #### C RP, CK, CBC, CMP, T4F, ESR, TSH3, ADDONUAPLUS #### [place] [address] [place] #### SPE, KARUNA,URINE, BIGG, HBCAB, ALDOLASE, RPR W RFX, HCV RX PCR, UPE RAND, HBSAB, QUANT TB, CHROMATIN, HBSAG #### [facility] , Nusqr-1-Tkkopzzy 0.7 g/dL Normal 0.4-1.0 [facility] Comment on above: Performed By: #### C RP, CK, CBC, CMP, T4F, ESR, TSH3, ADDONUAPLUS #### [address] #### SPE, KARUNA,URINE, BIGG, HBCAB, ALDOLASE, RPR W RFX, HCV RX PCR, UPE RAND, HBSAB, QUANT TB, CHROMATIN, HBSAG #### [facility] , Beta Globulin 1.1 g/dL Normal 0.7-1.3 [facility] Comment on above: Performed By: #### C RP, CK, CBC, CMP, T4F, ESR, TSH3, ADDONUAPLUS #### [address] #### SPE, KARUNA,URINE, BIGG, HBCAB, ALDOLASE, RPR W RFX, HCV RX PCR, UPE RAND, HBSAB, QUANT TB, CHROMATIN, HBSAG #### [facility] , Gamma Globulin 1.3 g/dL Normal 0.4-1.8 [facility] Comment on above: Performed By: #### C RP, CK, CBC, CMP, T4F, ESR, TSH3, ADDONUAPLUS #### [place] [address] [place] #### SPE, KARUNA,URINE, BIGG, HBCAB, ALDOLASE, RPR W RFX, HCV RX PCR, UPE RAND, HBSAB, QUANT TB, CHROMATIN, HBSAG #### [facility] , Globulin (S) [Mass/Vol] 3.3 g/dL Normal 2.2-3.9 [facility] Comment on above: Performed By: #### C RP, CK, CBC, CMP, T4F, ESR, TSH3, ADDONUAPLUS #### [place] [address] [place] #### SPE, KARUNA,URINE, BIGG, HBCAB, ALDOLASE, RPR W RFX, HCV RX PCR, UPE RAND, HBSAB, QUANT TB, CHROMATIN, HBSAG #### [facility] , M-Leonid Not Observed Normal Not Observed [facility] Comment on above: Performed By: #### C RP, CK, CBC, CMP, T4F, ESR, TSH3, ADDONUAPLUS #### [place] [address] [place] #### SPE, KARUNA,URINE, BIGG, HBCAB, ALDOLASE, RPR W RFX, HCV RX PCR, UPE RAND, HBSAB, QUANT TB, CHROMATIN, HBSAG #### [facility] , SPE-Note Comment Normal . [facility] Comment on above: Result Comment: Prot ein electrophoresis scan will follow via computer, mail, or medical transcription supervisor delivery. Performed at: [facility] [place] [id number] [employer]: Jasiel Key PhD, Phone: [phone] Performed By: #### C RP, CK, CBC, CMP, T4F, ESR, TSH3, ADDONUAPLUS #### [place] [address] [place] #### SPE, KARUNA,URINE, BIGG, HBCAB, ALDOLASE, RPR W RFX, HCV RX PCR, UPE RAND, HBSAB, QUANT TB, CHROMATIN, HBSAG #### [facility] , Protein Test strip (U) [Mass /Vol]Ordered By: Gordy Matthew on 03-09-2024 Protein (U) [Mass/Vol] Negative Negative [facility] Protein [Mass/volume] in Ser um or PlasmaOrdered By: Gordy Matthew on 03-09-2024 Protein [Mass/Vol] 7.1 g/dL Normal 6.0-8.5 [facility] Comment on above: Performed By: #### C RP, CK, CBC, CMP, T4F, ESR, TSH3, ADDONUAPLUS #### [address] #### SPE, KARUNA,URINE, BIGG, HBCAB, ALDOLASE, RPR W RFX, HCV RX PCR, UPE RAND, HBSAB, QUANT TB, CHROMATIN, HBSAG #### [facility] , QuantiFERON TB Goldon 2023 QFTB Criteria Comment Normal . [facility] Comment on above: Result [...] CBC, CMP, T4F, ESR, TSH3, ADDONUAPLUS #### [address] #### SPE, KARUNA,URINE, BIGG, HBCAB, ALDOLASE, RPR W RFX, HCV RX PCR, UPE RAND, HBSAB, QUANT TB, CHROMATIN, HBSAG #### [facility] , Quant TB Ag Value 0.00 Normal . [facility] Comment on above: Performed By: #### C RP, CK, CBC, CMP, T4F, ESR, TSH3, ADDONUAPLUS #### [address] #### SPE, KARUNA,URINE, BIGG, HBCAB, ALDOLASE, RPR W RFX, HCV RX PCR, UPE RAND, HBSAB, QUANT TB, CHROMATIN, HBSAG #### [facility] , Quant TB Gold Plus Negative Normal Negative [facility] Comment on [...] Chemiluminescence immunoassay methodology Performed at: [facility] [address] [id number] [employer]: Jasiel Key PhD, Phone: [phone] PERFORMED BY: [place] [address] PATHOLOGIST SCIENTIFIC SOFTWARE DEVELOPER JOCELYN EDGE M.D. Performed By: #### C RP, CK, CBC, CMP, T4F, ESR, TSH3, ADDONUAPLUS #### [address] #### SPE, KARUNA,URINE, BIGG, HBCAB, ALDOLASE, RPR W RFX, HCV RX PCR, UPE RAND, HBSAB, QUANT TB, CHROMATIN, HBSAG #### [facility] , Quant TB2 Ag Value 0.00 Normal . [facility] Comment on above: Performed By: #### C RP, CK, CBC, CMP, T4F, ESR, TSH3, ADDONUAPLUS #### [address] #### SPE, KARUNA,URINE, BIGG, HBCAB, ALDOLASE, RPR W RFX, HCV RX PCR, UPE RAND, HBSAB, QUANT TB, CHROMATIN, HBSAG #### [facility] , Quantiferon Nil Value 0.00 Normal . [facility] Comment on above: Performed By: #### C RP, CK, CBC, CMP, T4F, ESR, TSH3, ADDONUAPLUS #### [place] [address] [place] #### SPE, KARUNA,URINE, BIGG, HBCAB, ALDOLASE, RPR W RFX, HCV RX PCR, UPE RAND, HBSAB, QUANT TB, CHROMATIN, HBSAG #### [facility] , Quantiferon TB Mitogen >10.00 Normal . [facility] Comment on above: Performed By: #### C RP, CK, CBC, CMP, T4F, ESR, TSH3, ADDONUAPLUS #### [address] #### SPE, KARUNA,URINE, BIGG, HBCAB, ALDOLASE, RPR W RFX, HCV RX PCR, UPE RAND, HBSAB, QUANT TB, CHROMATIN, HBSAG #### [facility] , RPR w/rfx to Quant TP Abson 03-09-2024 RPR, Rfx Quant RPR Non-Reactive Normal Non Reactive [facility] Comment on above: Result Comment: Perf ormed at: - [facility] [address] [id number] [employer]: Jasiel Key PhD, Phone: [phone] PERFORMED BY: [place] [address] PATHOLOGIST SCIENTIFIC SOFTWARE DEVELOPER JOCELYN EDGE M.D. Performed By: #### C RP, CK, CBC, CMP, T4F, ESR, TSH3, ADDONUAPLUS #### [address] #### SPE, KARUNA,URINE, BIGG, HBCAB, ALDOLASE, RPR W RFX, HCV RX PCR, UPE RAND, HBSAB, QUANT TB, CHROMATIN, HBSAG #### [facility] , Serum globulin measurement b y calculation (mass/volume)Ordered By: Gordy Matthew on 03-09-2024 Globulin (S) [Mass/Vol] 2.9 g/dL Normal F [facility] Comment on above: Performed By: #### C RP, CK, CBC, CMP, T4F, ESR, TSH3, ADDONUAPLUS #### [address] #### SPE, KARUNA,URINE, BIGG, HBCAB, ALDOLASE, RPR W RFX, HCV RX PCR, UPE RAND, HBSAB, QUANT TB, CHROMATIN, HBSAG #### [facility] , Serum or plasma albumin/glob ulin mass ratioOrdered By: Gordy Matthew on 03-09-2024 Albumin/Globulin [Mass ratio] 1.4 {ratio} [facility] Comment on above: Performed By: #### C RP, CK, CBC, CMP, T4F, ESR, TSH3, ADDONUAPLUS #### [facility] [address] [place] [address] #### SPE, KARUNA,URINE, BIGG, HBCAB, ALDOLASE, RPR W RFX, HCV RX PCR, UPE RAND, HBSAB, QUANT TB, CHROMATIN, HBSAG #### [facility] , Serum or plasma anion gap de terminationOrdered By: Gordy Matthew on 03-09-2024 Anion gap [Moles/Vol] 9.8 mmol/L Normal 6.0-15.0 [facility] Comment on above: Performed By: #### C RP, CK, CBC, CMP, T4F, ESR, TSH3, ADDONUAPLUS #### [facility] [address] [place] [address] [place] #### SPE, KARUNA,URINE, BIGG, HBCAB, ALDOLASE, RPR W RFX, HCV RX PCR, UPE RAND, HBSAB, QUANT TB, CHROMATIN, HBSAG #### [facility] , Sodium [Moles/volume] in Ser um or PlasmaOrdered By: Gordy Matthew on 03-09-2024 Sodium [Moles/Vol] 139 mmol/L Normal 136-145 [facility] Comment on above: Performed By: #### C RP, CK, CBC, CMP, T4F, ESR, TSH3, ADDONUAPLUS #### [facility] [address] [place] [address] [place] #### SPE, KARUNA,URINE, BIGG, HBCAB, ALDOLASE, RPR W RFX, HCV RX PCR, UPE RAND, HBSAB, QUANT TB, CHROMATIN, HBSAG #### [facility] , Specific gravity Test strip (U) [Rel density]Ordered By: Gordy Matthew on 03-09-2024 Specific gravity (U) [Rel density] 1.013 1.001-1.030 [facility] Thyrotropin [Units/volume] i n Serum or PlasmaOrdered By: Gordy Matthew on 03-09-2024 TSH Qn 2.78 m[IU]/L Normal 0.45-5.33 [facility] Comment on above: Result Comment: PERF ORMED BY: [place] [id number] PATHOLOGIST [employer]ELOPER JOCELYN EDGE M.D. Performed By: #### C RP, CK, CBC, CMP, T4F, ESR, TSH3, ADDONUAPLUS #### [address] #### SPE, KARUNA,URINE, BIGG, HBCAB, ALDOLASE, RPR W RFX, HCV RX PCR, UPE RAND, HBSAB, QUANT TB, CHROMATIN, HBSAG #### [facility] , Thyroxine (T4) free [Mass/vo lume] in Serum or PlasmaOrdered By: Gordy Matthew on 03-09-2024 Free T4 [Mass/Vol] 0.78 ng/dL Normal 0.61-1.12 [facility] Comment on above: Performed By: #### C RP, CK, CBC, CMP, T4F, ESR, TSH3, ADDONUAPLUS #### [facility] [address] [place] [address] #### SPE, KARUNA,URINE, BIGG, HBCAB, ALDOLASE, RPR W RFX, HCV RX PCR, UPE RAND, HBSAB, QUANT TB, CHROMATIN, HBSAG #### [facility] , Urea nitrogen [Mass/volume] in Serum or PlasmaOrdered By: Gordy Matthew on 03-09-2024 Urea nitrogen [Mass/Vol] 15 mg/dL Normal 7-25 [facility] Comment on above: Performed By: #### C RP, CK, CBC, CMP, T4F, ESR, TSH3, ADDONUAPLUS #### [facility] [address] [place] [address] #### SPE, KARUNA,URINE, BIGG, HBCAB, ALDOLASE, RPR W RFX, HCV RX PCR, UPE RAND, HBSAB, QUANT TB, CHROMATIN, HBSAG #### [facility] , Urine appearanceOrdered By: Gordy Matthew on 03-09-2024 Appearance (U) Cloudy Critically abnormal [facility] Comment on above: Order Comment: Name Collection Type:: Clean-Voided Midstream Performed By: #### C RP, CK, CBC, CMP, T4F, ESR, TSH3, ADDONUAPLUS #### [facility] [address] [place] [address] #### SPE, KARUNA,URINE, BIGG, HBCAB, ALDOLASE, RPR W RFX, HCV RX PCR, UPE RAND, HBSAB, QUANT TB, CHROMATIN, HBSAG #### [facility] , Urobilinogen Test strip (U) [Mass/Vol]Ordered By: Gordy Matthew on 03-09-2024 Urobilinogen (U) [Mass/Vol] Normal mg/dL Normal [facility] pH of Urine by Test stripOrd ered By: Gordy Matthew on 03-09-2024 pH (U) 7.0 [pH] Normal 5.0-9.0 [facility] Comment on above: Order Comment: Name Collection Type:: Clean-Voided Midstream Performed By: #### C RP, CK, CBC, CMP, T4F, ESR, TSH3, ADDONUAPLUS #### [facility] [address] [place] [address] #### SPE, KARUNA,URINE, BIGG, HBCAB, ALDOLASE, RPR W RFX, HCV RX PCR, UPE RAND, HBSAB, QUANT TB, CHROMATIN, HBSAG #### [facility] , COVID/FLU/RSV RT-PCRon 06-14 SARS-CoV-2 (COVID-19) RNA VIVEK+probe Ql (Unsp spec) Negative [facility] Other COVID/FLU/RSV RT-PCR Negative [facility] Other COVID/FLU/RSV RT-PCR Positive [facility] [employer] [facility] [employer] Other Outside Colonoscopyon 2022 Outside Colonoscopy [id number] 0#1.00CD:127 [facility] Reminderson 10-02-2022 Reminders - From: Kisha Samuel LPN To: N - Clinical; Sent: 10/02/2022 08:43:18 EDT Show up: 08/31/2032 07:00:00 EDT Subject: colonoscopy recall Due Date/Time: 10/01/2032 07:00:00 EDT Reminder/Recall Patient is due for screening colonoscopy 10/01/2032. [facility] Consent for Procedure/Surger yon 09-11-2022 Consent for Procedure/Surgery [id number] #1.00CD:127 [facility] Facesheeton 09-11-2022 Facesheet [id number] #1.00CD:127 [facility] Pre-Certification Formon Pre-Certification Form [id number] 1#1.00CD:127 [facility] Ambulatory Visit Summaryon 0 09-10-2022 Ambulatory Visit Summary MERCEDES EAGLE :1955 Visit Date:09/10/2022 Ambulatory Visit Instructions [...] reflux disease) Osteoarthritis Seasonal allergic rhinitis Normal [facility] Physician Referralon 023 Physician Referral [id number] #1.00CD:127 Normal [facility] Follow-Upon 05-15-2022 Follow-Up [id number] Mercedes Eagle 1955 F Date Provider Department Center 05/15/2022 Piedad-TIMMY TINSLEY MP ORTHO MPORTHO Family History Problem Relation Age of Onset Diabetes Mother Heart disease Mother Arthritis Mother No Known Problems Father Family Status - Relation Status Age at Mother Father Level of Service:77591 LA OFFICE/OUTPATIENT ESTABLISHED LOW MDM 20-29 MIN Reason for Visit and Comments: Follow-up [619587] - Yearly follow up Normal [facility] XR DEXA BONE DENSITYon 04-28 XR DEXA [...] by: STEPHANIE RAYA Date: 2022-04-28 17:04 Normal [facility] MAMM SCREEN 3D ARCELIA CADon 04-23-2022 MAMM SCREEN 3D ARCELIA CAD Patient: MERCEDES EAGLE Exam Date: 04/23/2022 : 1955 Gender:F Ordering : DR ARETHA BREWSTER . Admission #: [id number] Family : Order #: [id number] CLICK HERE TO VIEW EXAM RADIOLOGY REPORT PROCEDURE: MAMMOGRAM SCREENING 3D BILATERAL CAD COMPARISON: MAMM SCREEN 3D ARCELIA CAD, 04/17/2021. INDICATIONS: Screening mammography Calculator Name NCI Breast Cancer Risk Assessment Tool 5 Year Breast Cancer Risk Not Reported. Lifetime Breast Cancer Risk Not Reported. Personal Breast Cancer No Personal Ovarian Cancer No Treatments None Family Cancers None LOCATION: [facility] BREAST COMPOSITION: Scattered areas fibroglandular density. [...] Raya MD on 04/23/2022 at 13:10 Normal [facility] NM STRESS/REST MULTIon 10-27 -2022 NM STRESS/REST MULTI Patient: MERCEDES EAGLE Exam Date: 04/10/2022 : 1955 Gender:F Ordering : DR ARETHA BREWSTER . Admission #: [id number] Family : Order #: [id number] CLICK HERE TO VIEW EXAM RADIOLOGY REPORT [...] nuclear medicine myocardial perfusion scan. Dictated by: Noé Calderon M.D. on 04/10/2022 at 13:49 Approved by: oNé Calderon M.D. on 04/10/2022 at 13:53 Normal [facility] AMYLASEon 03-24-2022 Amylase [Catalytic activity/Vol] 51 U/L Normal 25-115 [facility] Comment on above: Performed By: #### A MY, LIPA, CMADM, HSTROPN #### [facility] [address] [place] [address] Dr. Christos Richardson CARDIAC MONA ADMITon 022 CK [Catalytic activity/Vol] 67 U/L Normal 26-192 [facility] Comment on above: Performed By: #### A MY, LIPA, CMADM, HSTROPN #### [facility] [address] [address] [address] Christos Richardson CK.MB [Mass/Vol] 0.93 ng/mL Normal <=3.60 [facility] Comment on above: Performed By: #### A MY, LIPA, CMADM, HSTROPN #### [facility] [address] [address] [address] Christos Richardson GAYATHRI 32 ng/mL Normal 9-82 [facility] Comment on above: Performed By: #### A MY, LIPA, CMADM, HSTROPN #### [facility] [address] [place] [address] Dr. Christos Richardson CBC AUTO DIFFon 03-24-2022 BASO # 0.1 103/ul Normal 0.0-0.1 [facility] Comment on above: Performed By: #### C BC ####[facility] [address] [address]DrEstela Richardson Basophils/100 WBC (Bld) 0.7 % Normal 0.2-2.0 [facility] Comment on above: Performed By: #### C BC ####[facility] [address] [address]DrEstela Richardson EO # 0.1 103/ul Normal 0.0-0.7 [facility] Comment on above: Performed By: #### C BC ####[facility] [address] [address]DrEstela Richardson Eosinophils/100 WBC (Bld) 0.8 % Critically low 0.9-7.0 [facility] Comment on above: Performed By: #### C BC ####[facility] [address] [address]DrEstela Richardson Erythrocyte distribution width (RBC) [Ratio] 13.4 % Normal 11.0-15.0 [facility] Comment on above: Performed By: #### C BC ####[facility] U[address] [place], [place] [address]Dr. Christos Richardson Hematocrit (Bld) [Volume fraction] 40.9 % Normal 36.0-48.0 [facility] Comment on above: Performed By: #### C BC ####[facility] [address] [address]Dr. Christos Richardson Hemoglobin (Bld) [Mass/Vol] 13.3 g/dL Normal 12.0-16.0 [facility] Comment on above: Performed By: #### C BC ####[facility] [address] [address]Dr. Christos Richardson IG # 0.02 10e3/ul Normal 0.00-0.03 [facility] Comment on above: Performed By: #### C BC ####[facility] [address] [address]Dr. Christos Richardson IG % 0.3 % Normal 0.0-0.5 [facility] Comment on above: Performed By: #### C BC ####[facility] [address] [address]Dr. Christos Richardson LYMPH # 2.3 103/ul Normal 1.2-3.8 [facility] Comment on above: Performed By: #### C BC ####[facility] [address] [address]Dr. Christos Richardson Lymphocytes/100 WBC (Bld) 32.6 % Normal 20.5-60.0 [facility] Comment on above: Performed By: #### C BC ####[facility] [address] [address]DrEstela Richardson MANUAL DIFF REQ NO Normal [facility] Comment on above: Performed By: #### C BC ####[facility] [address] [address]Dr. Christos Richardson MCH (RBC) [Entitic mass] 29.2 pg Normal 26.7-34.0 [facility] Comment on above: Performed By: #### C BC ####[facility] [address] [address]Dr. Christos Richardson MCHC (RBC) [Mass/Vol] 32.5 g/dL Normal 29.9-35.2 [facility] Comment on above: Performed By: #### C BC ####[facility] [address] [id number]. Christos Dylan MCV (RBC) [Entitic vol] 89.9 fL Normal 81.0-99.0 [facility] Comment on above: Performed By: #### C BC ####[facility] [address] [place], [place] [address]Dr. Christos Richardson MONO # 1.0 103/ul Critically high 0.3-0.8 [facility] Comment on above: Performed By: #### C BC ####[facility] [address] [place], [place] [address]Dr. Christos Richardson Monocytes/100 WBC (Bld) 14.2 % Critically high 1.7-12. 0 [facility] Comment on above: Performed By: #### C BC ####[facility] [address] [place], [place] [address]Dr. Christos Richardson NEUT # 3.7 103/ul Normal 1.4-6.5 [facility] Comment on above: Performed By: #### C BC ####[facility] [address] [place], [place] [address]Dr. Christos Richardson Neutrophils/100 WBC (Bld) 51.4 % Normal 43.0-75.0 [facility] Comment on above: Performed By: #### C BC ####[facility] [address] [place], [place] [address]Dr. Christos Richardson Platelet mean volume (Bld) [Entitic vol] 9.7 fL Normal 9.5-13.5 [facility] Comment on above: Performed By: #### C BC ####[facility] [address] [place], [place] [address]Dr. Christos Richardson PLT 271 103/ul Normal 150-450 [facility] Comment on above: Performed By: #### C BC ####[facility] [address] [place], [place] [address]DrEstela Richardson RBC 4.55 106/ul Normal 4.20-5.40 [facility] Comment on above: Performed By: #### C BC ####[facility] [address] [address]Dr. Christos Richardson WBC 7.1 103/ul Normal 4.0-11.0 [facility] Comment on above: Performed By: #### C BC ####[facility] [address] [address]DrEstela Christos Richardson LIPASEon 03-24-2022 Lipase [Catalytic activity/Vol] 104.0 U/L Normal 73.0-393.0 [facility] Comment on above: Performed By: #### A MY, LIPA, CMADM, HSTROPN #### [facility] [address] [address] [address] Christos Richardson TROPONIN, HIGH SENSITIVITYon 03-24-2022 HSTROP 6.6 pg/mL Normal 4.0-51.3 [facility] Comment on above: Result Comment: CUT- OFF POINTS HAVE BEEN ESTABLISHED BASED ON THE FOURTH UNIVERSAL DEFINITIONS OF MYOCARDIAL INFARCTION. THE UPPER REFERENCE LIMIT (URL) OF TROPONIN, DEFINED THE 99TH PERCENTILE OF cTnI DISTRIBUTION IN A REFERENCE POPULATION, HAS BEEN CONFIRMED THE DECISION THRESHOLD FOR PR DIAGNOSIS. Performed By: #### H STROPN ####[facility] [address] [address]Dr. Christos Dylan HSTROP 6.3 pg/mL Normal 4.0-51.3 [facility] Comment on above: Result Comment: CUT- OFF POINTS HAVE BEEN ESTABLISHED BASED ON THE FOURTH UNIVERSAL DEFINITIONS OF MYOCARDIAL INFARCTION. THE UPPER REFERENCE LIMIT (URL) OF TROPONIN, DEFINED THE 99TH PERCENTILE OF cTnI DISTRIBUTION IN A REFERENCE POPULATION, HAS BEEN CONFIRMED THE DECISION THRESHOLD FOR PR DIAGNOSIS. Performed By: #### A MY, LIPA, CMADM, HSTROPN #### [facility] [address] [address] [address] Christos Richardson XR CHEST 1 Von [...] No acute cardiopulmonary process. Electronically authenticated by: NOÉ CALDERON Date: 2022-03-24 13:53 Normal [facility] INSULINon 01-09-2022 Insulin 10.4 uIU/mL Normal 2.6-24.9 [facility] Comment on above: Performed By: #### I NSULIN #### [facility] [address] [place] [address] Dr. Christos Richardson CBC AUTO DIFFon 01-08-2022 BASO # 0.1 103/ul Normal 0.0-0.1 [facility] Comment on above: Performed By: #### C BC #### [facility] [address] [place] [address] Dr. Christos Richardson Basophils/100 WBC (Bld) 0.8 % Normal 0.2-2.0 [facility] Comment on above: Performed By: #### C BC #### [facility] [address] [place] [address] Dr. Christos Richardson EO # 0.1 103/ul Normal 0.0-0.7 [facility] Comment on above: Performed By: #### C BC #### [facility] [address] [place] [address] Dr. Christos Richardson Eosinophils/100 WBC (Bld) 1.5 % Normal 0.9-7.0 [facility] Comment on above: Performed By: #### C BC #### [facility] [address] [place] [address] Dr. Christos Richardson Erythrocyte distribution width (RBC) [Ratio] 13.6 % Normal 11.0-15.0 [facility] Comment on above: Performed By: #### C BC #### [facility] [address] [place] [address] Dr. Christos Richardson Hematocrit (Bld) [Volume fraction] 40.4 % Normal 36.0-48.0 [facility] Comment on above: Performed By: #### C BC #### [facility] [address] [place] [address] Dr. Christos Richardson Hemoglobin (Bld) [Mass/Vol] 12.9 g/dL Normal 12.0-16.0 [facility] Comment on above: Performed By: #### C BC #### [facility] [address] [place] [address] Dr. Christos Richardson IG # 0.01 10e3/ul Normal 0.00-0.03 [facility] Comment on above: Performed By: #### C BC #### [facility] [address] [place] [address] Dr. Christos Richardson IG % 0.2 % Normal 0.0-0.5 [facility] Comment on above: Performed By: #### C BC #### [facility] [address] [place] [address] Dr. Christos Richardson LYMPH # 2.4 103/ul Normal 1.2-3.8 [facility] Comment on above: Performed By: #### C BC #### [facility] [address] [place] [address] Dr. Christos Richardson Lymphocytes/100 WBC (Bld) 39.7 % Normal 20.5-60.0 [facility] Comment on above: Performed By: #### C BC #### [facility] [address] [place] [address] Dr. Christos Richardson MANUAL DIFF REQ NO Normal [facility] Comment on above: Performed By: #### C BC #### [facility] [address] [place] [address] Dr. Christos Richardson MCH (RBC) [Entitic mass] 29.0 pg Normal 26.7-34.0 [facility] Comment on above: Performed By: #### C BC #### [facility] [address] [place] [address] Dr. Chrisots Richradson MCHC (RBC) [Mass/Vol] 31.9 g/dL Normal 29.9-35.2 [facility] Comment on above: Performed By: #### C BC #### [facility] [address] [address] [address] Christos Richardson MCV (RBC) [Entitic vol] 90.8 fL Normal 81.0-99.0 [facility] Comment on above: Performed By: #### C BC #### [facility] [address] [address] [address] Christos Richardson MONO # 0.8 103/ul Normal 0.3-0.8 [facility] Comment on above: Performed By: #### C BC #### [facility] [address] [place] [address] Dr. Christos Richardson Monocytes/100 WBC (Bld) 13.5 % Critically high 1.7-12. 0 [facility] Comment on above: Performed By: #### C BC #### [facility] [address] [place] [address] Dr. Christos Richardson NEUT # 2.7 103/ul Normal 1.4-6.5 [facility] Comment on above: Performed By: #### C BC #### [facility] [address] [place] [address] Dr. Christos Richardson Neutrophils/100 WBC (Bld) 44.3 % Normal 43.0-75.0 [facility] Comment on above: Performed By: #### C BC #### [facility] [address] [place] [address] Dr. Christos Richardson Platelet mean volume (Bld) [Entitic vol] 10.4 fL Normal 9.5-13.5 [facility] Comment on above: Performed By: #### C BC #### [facility] [address] [place] [address] Dr. Christos Richardson PLT 287 103/ul Normal 150-450 [facility] Comment on above: Performed By: #### C BC #### [facility] [address] [place] [address] Dr. Christos Richardson RBC 4.45 106/ul Normal 4.20-5.40 [facility] Comment on above: Performed By: #### C BC #### [facility] [address] [address] [address] Christos Richardson WBC 6.1 103/ul Normal 4.0-11.0 [facility] Comment on above: Performed By: #### C BC #### [facility] [address] [address] [address] Christos Richardson FREE THYROXINE INDEX T7on FTI 2.00 Normal 1.30-4.50 [facility] Comment on above: Performed By: #### C MP, T7, LIPID, TSH ####[facility] [address] [address]Dr. Christos Richardson T3U 35.0 % Normal 30.0-39.0 [facility] Comment on above: Performed By: #### C MP, T7, LIPID, TSH ####[facility] [address] [address]DrEstela Richardson T4 [Mass/Vol] 5.70 ug/dL Normal 4.80-13.90 [facility] Comment on above: Performed By: #### C MP, T7, LIPID, TSH ####[facility] [address] [address]DrEstela Richardson GLYCOHEMOGLOBIN A1Con 2021 ADA RECOMMENDATION SEE BELOW Normal [facility] Comment on above: Result Comment: ADA RECOMMENDED LIMIT 4.0 - 6.0 ADA THERAPEUTIC TARGET < 7.0 ACTION SUGGESTED > 7.0 Performed By: #### A 1C ####[facility] [address] [address]Dr. Christos Richardson Glucose [Mass/Vol] 114 mg/dL Normal [facility] Comment on above: Performed By: #### A 1C ####[facility] [address] [address]Dr. Christos Richardson HbA1c (Bld) [Mass fraction] 5.6 % Normal 4.5-6.2 [facility] Comment on above: Performed By: #### A 1C ####[facility] [address] [address]Dr. Christos Richardson IRONon 01-08-2022 Iron [Mass/Vol] 100.0 ug/dL Normal 50.0-170.0 [facility] Comment on above: Performed By: #### I BLANCO ####[facility] [address] [address]Dr. Christos Richardson LIPID PROFILEon 01-08-2022 CHOL-HDL RATIO NORM SEE BELOW Normal [facility] Comment on above: Result Comment: 3.3 - 4.4 LOW RISK 4.4 - 7.1 AVERAGE RISK 7.1 - 11.0 MODERATE RISK >11.0 HIGH RISK Performed By: #### C MP, T7, LIPID, TSH ####[facility] [address] [address]Dr. Christos Richardson Cholesterol [Mass/Vol] 187 mg/dL Normal <=200 Th [facility] Comment on above: Performed By: #### C MP, T7, LIPID, TSH ####[facility] [address] [address]Dr. Christos Richardson Cholesterol in HDL [Mass/Vol] 63 mg/dL Critically high 40-60 [facility] Comment on above: Performed By: #### C MP, T7, LIPID, TSH ####[facility] [address] [address]Dr. Christos Richardson Cholesterol in LDL [Mass/Vol] 110.8 mg/dL Normal [facility] Comment on above: Performed By: #### C MP, T7, LIPID, TSH ####[facility] [address] [id number]. Christos Richardson Cholesterol.total/Kylee sterol in HDL [Mass ratio] 3.0 {ratio} Normal [facility] Comment on above: Performed By: #### C MP, T7, LIPID, TSH ####[facility] [address] [address]Dr. Christos Richardson HDL NORMAL > or = 60 mg/dl - LOW CARDIOVASCULAR RISK <40 mg/dl - HIGH CARDIOVASCULAR RISK Normal [facility] Comment on above: Performed By: #### C MP, T7, LIPID, TSH ####[facility] [address] [id number]. Christos Richardson LDL CALC NORMAL SEE BELOW Normal [facility] Comment on above: Result Comment: <100 mg/dl OPTIMAL 100 - 129 mg/dl NEAR OR ABOVE OPTIMAL 130 - 159 mg/dl BORDERLINE HIGH 160 - 189 mg/dl HIGH >190 mg/dl VERY HIGH Performed By: #### C MP, T7, LIPID, TSH ####[facility] [address] [address]Dr. Christos Richardson Triglyceride [Mass/Vol] 66 mg/dL Normal <=150 T [facility] Comment on above: Performed By: #### C MP, T7, LIPID, TSH ####[facility] [address] [address]Dr. Christos Richardson VLDL CALC 13.2 mg/dL Normal [facility] Comment on above: Performed By: #### C MP, T7, LIPID, TSH ####[facility] [address] [address]Dr. Christos Richardson PROF 14(COMP METB)on 022 Albumin [Mass/Vol] 3.4 g/dL Normal 3.4-5.0 [facility] Comment on above: Performed By: #### C MP, T7, LIPID, TSH ####[facility] [address] [id number]. Christos Richardson Albumin/Globulin [Mass ratio] 0.9 {ratio} Normal [facility] Comment on above: Performed By: #### C MP, T7, LIPID, TSH ####[facility] [address] [id number]. Christos Richardson ALP [Catalytic activity/Vol] 79 U/L Normal 46-116 [facility] Comment on above: Performed By: #### C MP, T7, LIPID, TSH ####[facility] [address] [address]Dr. Christos Richardson ALT [Catalytic activity/Vol] 22 U/L Normal 14-59 [facility] Comment on above: Performed By: #### C MP, T7, LIPID, TSH ####[facility] [address] [address]Dr. Christos Richardson Anion gap [Moles/Vol] 11.5 mmol/L Normal Th e [facility] Comment on above: Performed By: #### C MP, T7, LIPID, TSH ####[facility] [address] [address]Dr. Christos Richardson AST [Catalytic activity/Vol] 16 U/L Normal 15-37 [facility] Comment on above: Performed By: #### C MP, T7, LIPID, TSH ####[facility] [address] [address]Dr. Christos Richardson Bilirubin [Mass/Vol] 0.3 mg/dL Normal 0.2-1.0 [facility] Comment on above: Performed By: #### C MP, T7, LIPID, TSH ####[facility] [address] [place], [place] [address]Dr. Devoramarissa Richardson Calcium [Mass/Vol] 9.1 mg/dL Normal 8.5-10.1 [facility] Comment on above: Performed By: #### C MP, T7, LIPID, TSH ####[facility] [address] [place], [place] [address]Dr. Devoramarissa Richardson Chloride [Moles/Vol] 106 mmol/L Normal 98-107 [facility] Comment on above: Performed By: #### C MP, T7, LIPID, TSH ####[facility] [address] [place] [address]Dr. Christos Richardson CO2 [Moles/Vol] 27.7 mmol/L Normal 21.0-32.0 [facility] Comment on above: Performed By: #### C MP, T7, LIPID, TSH ####[facility] [address] [place] [address]Dr. Christos Richardson Creatinine [Mass/Vol] 0.75 mg/dL Normal 0.55-1.02 [facility] Comment on above: Performed By: #### C MP, T7, LIPID, TSH ####[facility] [address] [place], [place] [address]Dr. Christos Richardson EGFR-AF ECUADOREAN >60 Normal >=60 [facility] Comment on above: Performed By: #### C MP, T7, LIPID, TSH ####[facility] [address] [place] [address]Dr. Christos Richardson EGFR-NON AF ECUADOREAN >60 Normal >=60 [facility] Comment on above: Performed By: #### C MP, T7, LIPID, TSH ####[facility] [address] [place] [address]Dr. Christos Richardson Globulin (S) [Mass/Vol] 3.9 g/dL Normal [facility] Comment on above: Performed By: #### C MP, T7, LIPID, TSH ####[facility] [address] [place] [address]Dr. Christos Richardson Glucose [Mass/Vol] 95 mg/dL Normal 74-106 [facility] Comment on above: Performed By: #### C MP, T7, LIPID, TSH ####[facility] [address] [place] [address]Dr. Christos Richardson Potassium [Moles/Vol] 4.2 mmol/L Normal 3.5-5.1 [facility] Comment on above: Performed By: #### C MP, T7, LIPID, TSH ####[facility] [address] [place] [address]Dr. Christos Richardson Protein [Mass/Vol] 7.3 g/dL Normal 6.4-8.2 [facility] Comment on above: Performed By: #### C MP, T7, LIPID, TSH ####[facility] [address] [place] [address]Dr. Christos Richardson Sodium [Moles/Vol] 141 mmol/L Normal 136-145 [facility] Comment on above: Performed By: #### C MP, T7, LIPID, TSH ####[facility] [address] [place] [address]Dr. Christos Richardson Urea nitrogen [Mass/Vol] 15.0 mg/dL Normal 7.0-18.0 [facility] Comment on above: Performed By: #### C MP, T7, LIPID, TSH ####[facility] [address] [place], [place] [address]Ei. Christos Richardson Urea nitrogen/Creatinine [Mass ratio] 20.0 mg/mg Normal [facility] Comment on above: Performed By: #### C MP, T7, LIPID, TSH ####[facility] [address] [place], [place] [address]Zx. Christos Richardson TSHon 01-08-2022 TSH 3.880 uIU/mL Critically high 0.358-3.740 [facility] Comment on above: Performed By: #### C MP, T7, LIPID, TSH ####[facility] [address] [place], [place] [address]Ig. Christos Richardson HIP LEFT 1 OR 2 VWS WITH PEL VISon 05-29-2021 HIP LEFT 1 OR 2 VWS WITH PELVIS [facility] Department of Radiology [address] [place] [id number] Patient Name: MERCEDES EAGLE : 1955 Sex: F Age: Race: [...] prosthesis. Electronically signed: Eder Crowder. Transcribed by: [email or web address], User Resident: EDER CROWDER Electronically Signed by: EDER CROWDER @ 05/30/2021 12:27 PM I personally read this/these film(s) with this resident Normal [facility] Comment on above: Order Comment: evalu ate Vital Signs Date Time Vital Sign Value Performing Clinician Facility 09-20-2024 12:50-0400 Body height 161.3 cm Brian James [facility] 09-20-2024 12:50-0400 Body mass index (BMI) [Ratio] 30.69 kg/m2 Brian James MD [facility] [place] [facility]: [place] 09-20-2024 12:50-0400 Body weight 79.83 kg Brian James MD [facility] 06-14-2023 09:30-0500 Body height 162.56 cm Sarah Sargent Other [facility] Other 06-14-2023 09:30-0500 Body mass index (BMI) [Ratio] 30.65 kg/m2 Sarah Sargent Other [facility] Other 06-14-2023 09:30-0500 Body temperature 98.8 [degF] Sarah Sargent Other [facility] Other 06-14-2023 09:30-0500 Body weight 81.01 kg Sarah Sargent Other [facility] Other 06-14-2023 09:30-0500 Diastolic blood pressure 67 mm[Hg] Sarah Sargent Other [facility] Other 06-14-2023 09:30-0500 Respiratory rate 16 /min Sarah Sargent Other [facility] Other 06-14-2023 09:30-0500 SaO2% (BldA) [Mass fraction] 96 % Sarah Sargent Other [facility] Other 06-14-2023 09:30-0500 Systolic blood pressure 129 mm[Hg] Sarah Sargent Other [facility] Other 09-10-2022 15:17-0400 Blood Pressure Location Lui NILL [facility] [place] 09-10-2022 15:17-0400 Diastolic blood pressure 64 mm[Hg] Lui NILL [facility] [place] 09-10-2022 15:17-0400 Heart rate 72 /min Lui NILL [facility] [place] 09-10-2022 15:17-0400 Respiratory rate 16 /min Lui NILL [facility] [place] 09-10-2022 15:17-0400 Systolic blood pressure 138 mm[Hg] Lui NILL [facility] [place] 11-12-2021 17:50-0400 Body height 162.56 cm Olivia Dean Other [facility] Other 11-12-2021 17:50-0400 Body mass index (BMI) [Ratio] 27.46 kg/m2 Olivia Dean Other [facility] Other 11-12-2021 17:50-0400 Body temperature 97.8 [degF] Olivia Dean Other [facility] Other 11-12-2021 17:50-0400 Body weight 72.58 kg Olivia Dean Other [facility] Other 11-12-2021 17:50-0400 Diastolic blood pressure 59 mm[Hg] Olivia Dean Other [facility] Other 11-12-2021 17:50-0400 Respiratory rate 16 /min Olivia Dean Other [facility] Other 11-12-2021 17:50-0400 SaO2% (BldA) [Mass fraction] 98 % Olivia Dean Other [facility] Other 11-12-2021 17:50-0400 Systolic blood pressure 130 mm[Hg] Olivia Dean Other [facility] Other Encounters Encounter Date Encounter Type Care Provider Facility Start: 01-19-2025 End: 01-19-2025 ambulatory Aretha Santacruz [facility] Work Phone: Start: 01-19-2025 End: 01-19-2025 Departed Referred Aretha Santacruz MD -[facility] [place] [facility] Start: 01-09-2025 End: 01-09-2025 ambulatory Aretha Santacruz [facility] Work Phone: Start: 01-09-2025 End: 01-09-2025 Departed Referred Aretha Santacruz MD -LAB [facility] [place] [facility] Start: 09-20-2024 End: 09-20-2024 Office outpatient new 20 minutes Brian James MD Work Phone: 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) Start: 09-20-2024 End: 09-20-2024 ambulatory BRIAN JAMES [facility] Start: 08-29-2024 End: 08-29-2024 ambulatory EUGENIO H TIMMIS Not Available Start: 03-09-2024 End: 03-09-2024 Patient encounter procedure MD Aretha Brewster Work Phone: [facility] [address] Work Phone: Start: 03-09-2024 End: 03-09-2024 ambulatory MD Aretha Brewster Work Phone: [facility] Work Phone: Start: 01-27-2024 End: 01-27-2024 ambulatory EUGENIO H TIMMIS Not Available Start: 01-04-2024 End: 01-04-2024 ambulatory EUGENIO H TIMMIS Not Available Start: 09-01-2023 End: 09-01-2023 ambulatory EUGENIO H TIMMIS Not Available Start: 06-14-2023 End: 06-14-2023 ambulatory Sarah Sargent Other [facility] Other Start: 06-14-2023 Office outpatient vi sit 25 minutes Sarah Sargent [facility] Start: 10-01-2022 End: 10-02-[address] LUI GAMINO . Facility:[facility] Start: 09-10-2022 End: 09-11-2022 ambulatory Lui GAMINO Facility:[facility] Start: 09-10-2022 End: 09-10-2022 Patient encounter procedure Lui GAMINO [facility] Start: 08-06-2022 ambulatory Lui GAMINO Facility: [facility] Start: 06-23-[address] LUI GAMINO . Facil ity:[facility]1 Start: 05-15-2022 End: 05-16-2022 [facility] Start: 04-28-2022 End: 04-29-[address] ARETHA BREWSTER . Facility:[facility] Start: 04-23-2022 End: 04-24-[address] ARETHA BREWSTER . Facility:[facility] Start: 04-10-2022 End: 04-11-[address] ARETHA BREWSTER . Facility:[facility] Start: 03-24-2022 End: 03-24-2022 ambulatory JESSICA MUKHERJEE . Facility:[facility] Start: 01-14-2022 Encounter for genera l adult medical examination without abnormal findings DR ARETHA BREWSTER . [facility] Start: 01-08-2022 End: 01-09-[address] ARETHA BREWSTER . Facility:[facility] Start: 01-08-2022 End: 01-09-2022 Encounter for general adult medical examination without abnormal findings DR ARETHA BREWSTER . Facility:[facility] Start: 11-12-2021 End: 11-12-2021 ambulatory Olivia Dean Other [facility] Other Start: 11-12-2021 Office outpatient vi sit 15 minutes Olivia Dean [facility] Procedures Date Procedure Procedure Detail Performing Clinician Start: 01-09-2025 Urine culture Aretha Brewster MD Work Phone: Arthroscopy of knee Lui GAMINO Colonoscopy Lui BERNSTEINL Colonoscopy Lui NILL Dilatation of esophageal stricture Lui NILJose Esophagogastroduodenoscopy M sydnie NILL Esophagogastroduodenoscopy M sydnie NILL Ligation of fallopian tube Neeta otoole NILL Reduction mammoplasty Michae l NILL Repair of hip Lui GAMINO Plan of Treatment Date Care Activity Detail Author Start: 09-25-2027 DTaP,Tdap and Td Vaccines (5 - Td or Tdap) DTaP,Tdap and Td Vaccines (5 - Td or Tdap) [facility] Start: 09-20-2025 Adult BMI Screening Adult BMI Screening [facility] Start: 09-20-2025 Tobacco Screening Tobacco Screening [facility] Start: 02-13-2025 Influenza vaccination Influenza Vaccine [facility] Start: 01-19-2025 Bacteria identified in Urine by Culture Urine [facility] Start: 01-19-2025 Urine culture [facility] Start: 01-09-2025 Urine culture [facility] Start: 01-09-2025 Bacteria identified in Urine by Culture Urine Culture [facility] Start: 03-09-2024 Hepatitis B core antibody measurement [facility] Start: 03-09-2024 [facility] Start: 02-14-2024 COVID-19 Vaccine ( season) COVID-19 Vaccine () [facility] Start: 2021 Fall Risk Screening Fall Risk Screening [facility] Start: 05-11-2018 Administration of varicella zoster vaccine Zoster (Shingles) Vaccine (2 of 3) [facility] Start: 1974 Adult BMI Follow Up Plan Adult BMI Follow Up Plan [facility] Start: 1968 Depression Screening Depression Screening [facility] 24 hour urine measurement [facility] Albumin [Mass/volume ] in Serum or Plasma [facility] Albumin/Globulin ratio [facility] Aldolase measurement [facility] Chromatin Ab [Units/volume] in Serum or Plasma [facility] Electrophoresis: [id number]-aenfpsqe [facility] Electrophoresis: xbqli-7-bhrzptaf [facility] Electrophoresis: beta-globulin [facility] Electrophoresis: cuate ma globulin [facility] Globulin [Mass/volum e] in Serum [facility] Hepatitis B virus ortiz rface Ab [Presence] in Serum [facility] Hepatitis B virus ortiz rface Ag [Presence] in Serum or Plasma by Immunoassay [facility] Hepatitis C virus Ig G Ab [Presence] in Serum or Plasma by Immunoassay [facility] Homogenous nuclear A b pattern [Titer] in Serum [facility] Immunofixation for Urine Fir [facility] Interferon gamma assay [facility] Measurement of monoc lonal protein concentration [facility] Mycobacterium tuberc ulosis stimulated gamma interferon [Interpretation] in Blood Qualitative [facility] Mycobacterium tuberc ulosis stimulated gamma interferon release by CD4+ and CD8+ T-cells [Units/volume] corrected for background in Blood [facility] Mycobacterium tuberc ulosis tuberculin stimulated gamma interferon [Presence] in Blood [facility] Nuclear Ab [Titer] i n Serum [facility] Protein [Mass/volume ] in Serum or Plasma [facility] Protein [Mass/volume ] in Urine [facility] Reagin Ab [Presence] in Serum by RPR [facility] Immunizations Immunization Date Immunization Notes Care Provider [facility] 05-04-2023 influenza virus vaccine, unspecified formulation Brian James MD Work Phone: [facility] 04-15-2022 influenza virus vaccine, unspecified formulation Lui GAMINO [facility] 04-14-2022 SARS-CoV-2 (COVID-19 ) [id number] Lui GAMINO [facility] 02-10-2022 SARS-CoV-2 mRNA (rxbwbbhjleq-vdxo-essbc se) vaccine Lui GAMINO [facility] 08-26-2021 SARS-CoV-2 mRNA (smlablungzj-iail-mivnj se) vaccine Lui GAMINO [facility] 02-25-2021 SARS-CoV-2 (COVID-19 ) mRNA BNT-162b2 vax Lui GAMINO [facility] 02-04-2021 SARS-CoV-2 (COVID-19 ) mRNA BNT-162b2 vax Lui GAMINO [facility] 03-16-2018 zoster vaccine, unspecified formulation Brian James MD Work Phone: [facility] [employer] Payers Date Payer Category Payer Medicare HMO MEDICARE HMO/PPO - GENERIC PLAN [id number] 2024 Self-pay 1958 Medicare [id number] 1955 Unknown [id number] 2.16.840.1.683815.3.579. 2.593 1955 Unknown [id number] 2.16.840.1.026416.3.579. 2.593 1955 Unknown [id number] 2.16.840.1.533173.3.579. 2.593 1955 Unknown [id number] 2.16.840.1.934057.3.579. 2.593 1955 Unknown [id number] 2.16.840.1.809001.3.579. 2.593 1955 Unknown [id number] 2.16.840.1.906302.3.579. 2.593 1955 Unknown [id number] 2.16.840.1.225062.3.579. 2.593 1955 Unknown [id number] 2.16.840.1.545784.3.579. 2.727 1955 Unknown [id number] 2.16.840.1.546600.3.579. 2.727 1955 Unknown [id number] 2.16.840.1.683171.3.579. 2.1259 1955 Unknown [id number] 2.16.840.1.948375.3.579. 2.1259 1955 Unknown [id number] 2.16.840.1.401718.3.579. 2.1258 1955 Unknown [id number] 2.16.840.1.804028.3.579. 2.1259 1955 Unknown [id number] 2.16.840.1.782452.3.579. 2.1286 1955 Unknown [id number] 2.16.840.1.769952.3.579. 2.1286 Medicare Medicare [id number] Private Health Insurance [id number] 2.16.840.1.409458.19 Unknown [id number] 2.16.840.1.259341.3.579. 2.531 Unknown [id number] 2.16840.1.699886.3.579. 2.531 Unknown [id number] 2.16840.1.048761.3.579. 2.531 Social History Date Type Detail Facility Start: 09-20-2024 Sex Assigned At F [facility] Start: 09-10-2022 End: 09-20-2024 Tobacco smoking status Ex-smoker (finding) [facility] Tobacco smoking status Never [facility] [place] Start: 1955 Sex Assigned At Female F [facility] History of tobacco use Current smoker [facility] History of tobacco use Cigarette Smoker P [facility] History of tobacco use Passive smoker [facility] Start: 09-20-2024 Tobacco use and exposure Smokeless tobacco non-user [facility] Start: 09-20-2024 Alcoholic beverage intake Ex-drinker (finding) [facility] Start: 09-20-2024 History of Social function [facility] Start: 08-11-2024 Sex Female (finding[facility] Start: 08-11-2024 Gender identity Identifies as female gender (finding) [facility] Start: 08-11-2024 Sexual orientation Heterosexual (norma weller) [facility] Tobacco smoking stat us NHIS Unknown if ever smoked [facility] Work Phone: Functional Status Date Assessment Result Facility 09-10-2022 Functional Status N/A [facility] Clinical Notes 11-12-2021 to 09-20-2024 Brian James MD - 09/20/2024 1:00 PM EDT Note Date & Type Note Facility 09-20-2024 History of Present illness Narrative Orthopaedic Surgery Outpatient Visit Note Encounter Date: 09/20/2024 Patient: Mercedes Eagle 1955 PCP No primary care provider on file. 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 female. This [...] Strain: Low Risk (05/15/2022) Received from [facility] Overall Financial Resource Strain (CARDIA) Difficulty of Paying Living Expenses: Not hard at all Food Insecurity: No Food Insecurity (05/15/2022) Received from [facility] Hunger Vital Sign Worried About Running Out of Food in the Last Year: Never true Ran Out of Food in the Last Year: Never true Transportation Needs: No Transportation Needs (05/15/2022) Received from [facility] PRAPARE - Transportation Lack of Transportation (Medical): No Lack of Transportation (Non-Medical): No Physical Activity: Insufficiently Active (05/15/2022) Received from [facility] Exercise Vital Sign Days of Exercise per Week: 2 days Minutes of Exercise per Session: 60 min Stress: No Stress Concern Present (05/15/2022) Received from [facility] [place] [employer] - Occupational Stress Questionnaire Feeling of Stress : Not at all Social Connections: Moderately Integrated (05/15/2022) Received from [facility] Social Connection and Isolation Panel [NHANES] Frequency of Communication with Friends and Family: Twice a week Frequency of Social Gatherings with Friends and Family: Once a week Attends Spiritism Services: More than 4 times per year Active Member of Clubs or Organizations: No Attends Club or Organization Meetings: Never Marital Status: Interpersonal Safety: Unknown (08/06/2023) Received from [facility] [place] Safety & Environment Fear of Current or Ex-Partner: Not on file Emotionally Abused: Not on file Physically Abused: Not on file Sexually Abused: Not on file Physically or Sexually Abused: Not on file Housing Instability: Low Risk (05/15/2022) Received from [facility] Housing Stability Vital Sign Unable to Pay [...] hip were reviewed. Findings: Right hip shows agyt-bi-czqa joint space narrowing with osteophyte formation. The [...] for repeat x-ray. [facility] Evaluation note Encounter Date Diagnosis Assessment Notes May, Nasal congestion (ICD-10 - R09.81) May, RSV infection (ICD-10 - B33.8) Advised patient that RSV PCR test was positive. COVID/influenza A/B PCR test negative. Discussed diagnosis with patients mother in detail. Advised that this is a viral illness and antibiotics are not indicated. Finish previous rx of steroids. Use rx of [place] as directed. Discussed importance of adequate hydration [...] plan. Patient sent home in stable condition. [facility] Other 04-19-2023 NoteOPERATIVE NOTE OPERATION DATE: 10/01/2022 ADDENDUM: Please add to the operative report - Follow up screening colonoscopy should be in 10 years.[id number] NoteOPERATIVE NOTE OPERATION DATE: 10/01/2022 PREOPERATIVE DIAGNOSIS: [...] in good condition. CC: Aretha Brewster M.D.[facility] [id number] NoteChief Complaint consultation for screening colonoscopy HPI [...] and Sister. Immunizations Vaccin (more content not included)...[facility]Result Comment: Electronically Signed By: ТАТЬЯНА HERNANDEZ, Lui Moeller\Date and Time Signed: 09/10/22 16:09 [id number] NoteOrthopaedic Surgery Outpatient Visit Note Encounter Date: 05/15/2022 Patient: Mercedes Eagle 1955 PCP No primary care provider on file. CC: No chief complaint on file. HPI: Mercedes Eagle is a 66 y.o. female here [...] incisional issues. Follow Up: No follow-ups on file.[facility]05-31-2022 Evaluation note* Encounter Date Diagnosis Assessment Notes [...] nonvenomous arthropods, initial encounter (ICD-10 - W57.XXXA) [facility] Other Evaluation + Plan note No data available for this section [facility] Evaluation noteNo assessment information available [facility] Work Phone: Evaluation note* Diagnosis Aftercare following left hip joint replacement surgery- [facility] N[facility] - Reported* Type Description Date Medical History arthritis Surgical History pyloniadal cyst Surgical History both knee Surgical History breast reduction Surgical History tubal ligation Surgical History Total hip replacement Hospitalization History see above surg [employer] [facility] Other History general Narrative - Reported* Type Description Date Medical History arthritis Medical History GERD Surgical History pyloniadal cyst Surgical History both knee Surgical History breast reduction Surgical History tubal ligation Surgical History Total hip replacement Hospitalization History see above surg [employer] [facility] Other Hospital Discharge instructions No data available for this section [facility] Surgery [facility] InstructionsNot on filedocumented in this encounter [facility] No data available for this section [facility] [place] Reason for referral (narrative)No reason for referral [facility] Work Phone: Summary Purpose Family History No Family History Records Found Relationship Condition Age at Onset Recorded Date/T griselda father Unknown Heart disease Unknown family member Unknown mother Diabetes mellitus Unknown Unknown Advance Directives No Advanced Directives Records Found Advance Directive Response Recorded Date/ Time Advance Directives No February 1:52pm Additional Source Comments INFORMATION SOURCE (unrecogn ized section and content) DATE CREATED AUTHOR 10/25/2021 [facility] DATE CREATED AUTHOR AUTHOR'S ORGANIZ ATION 05/17/2022 [facility] DATE CREATED AUTHOR AUTHOR'S ORGANIZ ATION 10/10/2022 [facility] DATE CREATED AUTHOR AUTHOR'S ORGANIZ ATION 10/10/2022 [facility] DATE CREATED AUTHOR AUTHOR'S ORGANIZ ATION 08/31/2024 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 [facility]. provides no warranty or guarantee of the accuracy or completeness of information in this document.
== END 2025-02-03 08:15 | disposition home or self-care (01) ==
LOC: US 08:14
PROVIDERS: PCP Family Medicine; Visit Provider Family Medicine
DX: N39.0 Urinary tract infection, site not specified (principal)
CPT/HCPCS: 76770

== ENCOUNTER 2025-03-04 10:17 | Outpatient (OUT) | payer MEDICARE, SELFPAY ==
--- OUTSIDE RECORDS SUMMARY | 2025-03-04 10:20 | XMS_ITS | Encounter Summary ---
Author Organization [facility] Address [address] [place] [address] Care Team Providers Care Airconditioning Engineer Name Role Phone Myron Brewster MD Primary Care Provider [phone] Encounter Details Date Type Department Care Team (Late st Contact Info) Description 01/12/2024 Clinisync Result Encounter [facility] External Department Unsolicited Eugenio Cervantes MD [address] [place] [address] Social History Tobacco Use Types [...] EDT Narrative 01/12/2024 11:00 AM EDT The [address] [address] [address] Scan Report Signed Patient: MERCEDES DUMONT MR#: [id number] : 1955 Acct:[id number] Age/Sex: 68 / F ADM Date: 01/11/24 Loc: CT Attending Dr: Eugenio Cervantes M.D. Ordering Physician: Eugenio Cervantes M.D. Date of Service: 01/11/24 Procedure(s): CT soft tissue neck w con Accession Number(s): [id number] cc: Myron Brewster M.D. [place] [address] Patient Name: MERCEDES DUMONT MRN: [facility]:[id number] date: 1955 Sex: F Assigned Patient Location: CT Current Patient Location: Accession/Order Number: [id number] Exam Date: 01/11/2024 13:24 Report Date: 01/12/2024 [...] Signed By: 01/12/24 1100 DD/ 1057 TD/TT: Accreditation Manager: Procedure Note Radiology, Radiologist, MD - 01/12/[address] [place] [id number] Scan Report Signed Patient: MERCEDES DUMONT KMR#: [id number] : 1955cct:[id number] Age/Sex: 68 / FADM Date: 01/11/24 Loc: CT Attending Dr: Eugenio Cervantes M.D. Ordering Physician: Eugenio Cervantes M.D. Date of Service: 01/11/24 Procedure(s): CT soft tissue neck w con Accession Number(s): [id number] cc: Myron Brewster M.D. The [place] [id number] Patient Name: MERCEDES DUMONT MRN: [id number] date: 1955 Sex: F Assigned Patient Location: CT Current Patient Location: Accession/Order Number: [id number] Exam Date: 01/11/2024 13:24 Report Date: 01/12/2024 [...] M.D. Signed By:01/12/24 1100 DD/ 1057 TD/TT: Accreditation Manager: us Eugenio Cervantes MD IMG CT PROCEDURES Final Resul t documented in this encounter Visit Diagnoses Not on filedocumented in this encounter Care Teams Airconditioning Engineer Relationship Specialty Start Date End Date Myron Brewster MD PCP - General Family Medicine 08/18/23 documented as of this encounter
--- OUTSIDE RECORDS SUMMARY | 2025-03-04 10:20 | XMS_ITS | Encounter Summary ---
Author Organization [facility] Address [address] [facility] [place] [address] Care Team Providers Care Tuber Helper Name Role Phone Myron Brewster MD Primary Care Provider [phone] Encounter Details Date Type Department Care Team (Late st Contact Info) Description 08/29/2024 Orders Only [facility] [address] [place] [address] Gordy Matthew MD [address] [facility] [address] Professional [address] [place] [id number] Social History Tobacco Use Types Packs/Day Years [...] on filedocumented in this encounter Care Teams Tuber Helper Relationship Specialty Start Date End Date Myron Brewster MD PCP - General Family Medicine 08/18/23 documented as of this encounter
--- OUTSIDE RECORDS SUMMARY | 2025-03-04 10:20 | XMS_ITS | Clinical Summary ---
Author Organization [employer] [facility] Address [id number] [address] [place] [address] Care Team Providers Care Bullet Lubricant Mixer Name Role Phone Unavailable Primary Care Provider [...] Risk Screening 2021 COVID-19 Vaccine (6 - 2024-2 6 season) 2025 04/14/2022, 02/10/2022, 08/26/2021, Additional history exists Influenza Vaccine 02/13/2025 05/04/2023, , 04/11/2021, Additional history exists Adult BMI Screening 09/20/2025 09/20/2024 Tobacco Screening 09/20/2025 09/20/2024 DTaP,Tdap and Td Vaccines (5 - Td or Tdap) 09/25/2027 09/24/2017, 04/23/2007, 05/06/2004, Additional history exists Medical Devices Not on file Insurance MEDICARE HMO/PPO - GENERIC PLAN
--- OUTSIDE RECORDS SUMMARY | 2025-03-04 10:20 | XMS_ITS | Patient Health Record ---
Author Organization The [facility] [place] Address [address] [place] [address] Care Team Providers Care Scalloper Name Role Phone Marco Cruz Primary Care Provider Allergies Allergen (clinical drug ingredient) Drug/Non Drug Allergy documented on EMR Reaction Allergy Type Onset Date Status Latex Latex (uncoded) contact dermatitis Allergy Active amoxicillin Amoxicillin rash Drug Allergy Act rosales erythromycin Erythromycin GI upset Drug Allergy A ctive Results Component Value Reference Range Notes UA DIP NONAUTO WO MICRO (810 02) - IN OFFICE Reviewed date:02/03/2025 04:06:14 PM Interpretation: Performing Lab: Notes/Report: COLOR light yellow CLARITY clear GLUCOSE neg BILIRUBIN neg KETONE neg SPECIFIC GRAVITY 1.020 BLOOD neg PH 6.5 PROTEIN neg UROBILINOGEN neg NITRITE neg LEUKOCYTE ESTERASE neg TSH Reviewed date:06/27/2024 08:08:00 PM Interpretation: Performing Lab: Notes/Report: [facility] , Thyroid Stimulating Hormone 3.333 0.358-3.740 uIU/mL Performing Lab: see note - The [facility] T4 Reviewed date:06/27/2024 08:08:00 PM Interpretation: Performing Lab: Notes/Report: [facility] , T4 Thyroxine 7.30 4.80-13.90 ug/dL Performing Lab: see note - The [facility] FREE T3 Reviewed date:06/27/2024 08:08:00 PM Interpretation: Performing Lab: Notes/Report: [facility] , Free T3 2.77 2.18-3.98 pg/mL Performing Lab: see note - The [facility] TSH Reviewed date:05/17/2024 08:42:40 PM Interpretation: Performing Lab: Notes/Report: [facility] , Thyroid Stimulating Hormone 4.292 0.358-3.740 uIU/mL Performing Lab: see note ML - The [facility] T4 Reviewed date:05/17/2024 08:42:40 PM Interpretation: Performing Lab: Notes/Report: [facility] , T4 Thyroxine 6.00 4.80-13.90 ug/dL Performing Lab: see note ML - The [facility] LIPID PROFILE Reviewed date:05/17/2024 08:42:40 PM Interpretation: Performing Lab: Notes/Report: [facility] , Triglycerides 85 <=150 mg/dL Cholesterol 204 <=200 mg/dL HDL Cholesterol 75 40-60 mg/dL > or =60 mg/dl - LOW CARDIOVASCULAR RISK <40 mg/dl - HIGH CARDIOVASCULAR RISK LDL Cholesterol Calculated 112.0 130-159 mg/dl BORDERLINE HIGH 100-129 mg/dl NEAR OR ABOVE OPTIMAL >190 mg/dl VERY HIGH 160-189 mg/dl HIGH <100 mg/dl OPTIMAL VLDL CHOLESTEROL 17.0 Chol HDL Ratio 2.7 3.3 - 4.4 LOW RISK 4.4 - 7.1 AVERAGE RISK >11.0 HIGH RISK 7.1 - 11.0 MODERATE RISK Performing Lab: see note ML - The [facility] FREE T3 Reviewed date:05/17/2024 08:42:40 PM Interpretation: Performing Lab: Notes/Report: [facility] , Free T3 2.88 2.18-3.98 pg/mL Performing Lab: see note ML - The [facility] CBC AUTO DIFF Reviewed date:05/17/2024 08:42:40 PM Interpretation: Performing Lab: Notes/Report: [facility] , White Blood Count 5.8 4.0-11.0 10 [...] Performing Lab: see note ML - The [facility] MM tomosynthesis screening B I Reviewed date:05/04/2024 12:32:18 PM Interpretation: Performing Lab: Notes/Report: Source Facility: [place] [address] Mammography Report Signed Patient: BRIE DUMONT MR#: [id number] : 1955 Acct:[id number] Age/Sex: 68 / F ADM Date: 05/04/24 Loc: MAMMO Attending Dr: Aretha Cruz M.D. Ordering Physician: Aretha Cruz M.D. Results: Date of Service: 05/04/24 Follow Up: Procedure(s): MM tomosynthesis screening BI Accession Number(s): [id number] cc: Aretha Cruz M.D. Patient Name: BRIE DUMONT MR#: [id number] : 1955 Exam Date: 05/04/2024 Ordering Doctor: DR Aretha Cruz . RADIOLOGY REPORT PROCEDURE: MM TOMOSYNTHESIS SCREENING BI COMPARISON: MG MAMM SCREEN 3D ARCELIA CAD, 04/23/2022. MM TOMOSYNTHESIS SCREENING BI, 04/27/2023. INDICATIONS: Screening Calculator Name NCI Breast Cancer Risk Assessment Tool 5 Year Breast Cancer Risk Not Reported. Lifetime Breast Cancer Risk Not Reported. Personal Breast Cancer No Personal Ovarian Cancer No Treatments None Family Cancers None LOCATION: The [facility] BREAST COMPOSITION: There are scattered areas of [...] Signed By: 05/04/24 1100 DD/ 1058 TD/TT: Advanced Manufacturing Vice President: XR chest 2V Reviewed date:03/13/2024 11:51:02 AM Interpretation: Performing Lab: Notes/Report: Source Facility: [place] [address] XRay Report Signed Patient: BRIE DUMONT MR#: [id number] : 1955 Acct:[id number] Age/Sex: 68 / F ADM Date: 03/11/24 Loc: RAD Attending Dr: GISELE ANTONY Ordering Physician: GISELE ANTONY Date of Service: 03/11/24 Procedure(s): XR chest 2V Accession Number(s): [id number] cc: Aretha Cruz M.D.; GISELE ANTONY The [place] [address] Patient Name: BRIE DUMONT MRN: [facility]:[id number] date: 1955 Sex: F Assigned Patient Location: RAD Current Patient Location: Accession/Order Number: [id number] Exam Date: 03/11/2024 08:57 Report Date: 03/12/2024 [...] Ulises Calderon M.D. Signed By: 03/12/2431 DD/ TD/TT: Advanced Manufacturing Vice President: renal bladder Reviewed date:02/03/2025 04:06:14 PM Interpretation: Performing Lab: Notes/Report: Source Facility: [place] [address] Ultrasound Report Signed Patient: BRIE DUMONT MR#: [id number] : 1955 Acct:[id number] Age/Sex: 69 / F ADM Date: 02/03/25 Loc: US Attending Dr: Aretha Cruz M.D. Ordering Physician: Aretha Cruz M.D. Date of Service: 02/03/25 Procedure(s): renal bladder Accession Number(s): [id number] cc: Aretha rCuz M.D. [place] [address] Patient Name: BRIE DUMONT MRN: [id number] date: 1955 Sex: F Assigned Patient Location: Current Patient Location: Accession/Order Number: [id number] Exam Date: 02/03/2025 08:25 Report Date: 02/03/2025 14:22 At the request of: ARETHA CRUZ MD Procedure: US renal bladder Bilateral Renal Ultrasound HISTORY: UTI. Flank pain. COMPARISON: None RIGHT kidney measures 10.2 cm. LEFT kidney measures 9.2 cm. Hydronephrosis: None RENAL STONE: No shadowing renal calculus is seen. RENAL LESIONS: No renal lesion identified. URINARY BLADDER: Minimal post void residual REPRODUCTIVE STRUCTURES Not assessed IMPRESSION : No hydronephrosis. Minimal post void residual of the urinary bladder Impression dictated by: Davin Chávez M.D. 02/03/2025 2:22 PM Dictation Location: [place] [address] Electronically authenticated by: [id number] Y Date: 02/03/2025 14:22 Dictated By: Davin Chávez D.O. Signed By: 02/03/25 1425 DD/ 1422 TD/TT: Advanced Manufacturing Vice President: Urine Culture - [facility] Reviewed date:01/22/2025 07:58:14 PM Interpretation: Performing Lab: Notes/Report: [facility] , Urine Culture - FR See Below For Report No Growth 2 Days Urine Culture - [facility] Urine Culture - [facility] No Growth 2 Days Urine Culture - [facility] Urine Culture - [facility] Testing performed a [facility] No Growth 2 Days Urine Culture - [facility] Urine Culture - [facility] [address] [place] [address] No Growth 2 Days Urine Culture - [facility] Performing Lab: see note ML - The [facility] UA RANDOM W or MICROSCOPIC Reviewed date:01/19/2025 10:00:55 PM Interpretation: Performing Lab: Notes/Report: [facility] , Color Urine LT. YELLOW YELLOW Clarity Urine CLEAR CLEAR Specific [place] Urine 1.020 1.005-1.025 pH Urine 7.5 5.0-9.0 [...] #/LPF Performing Lab: see note ML - [facility] LB Urine Culture - [facility] Reviewed date:01/12/2025 12:56:27 PM Interpretation: Performing Lab: Notes/Report: [facility] , Urine Culture - FR See Below For Report 15,000 colonies/ml mixed Urine Culture - FR Urine Culture - FR bacterial skin contaminants 15,000 colonies/ml mixed Urine Culture - FR Urine Culture - FR 2 Days 15,000 colonies/ml mixed Urine Culture - FR Urine Culture - [facility] 15,000 colonies/ml mixed Urine Culture - FR Urine Culture - FR Testing performed a [facility] 15,000 colonies/ml mixed Urine Culture - [facility] Urine Culture - [address] [place] [address] 15,000 colonies/ml mixed Urine Culture - FR Performing Lab: see note ML - [facility] LB UA RANDOM W or MICROSCOPIC Reviewed date:01/09/2025 05:02:55 PM Interpretation: Performing Lab: Notes/Report: [facility] , Color Urine LT. YELLOW YELLOW Clarity Urine CLEAR CLEAR Specific [place] Urine 1.015 1.005-1.025 pH Urine 8.5 5.0-9.0 [...] NONE SEEN #/LPF Performing Lab: see note - [facility] LB PROF 14(COMP METB) Reviewed date:05/17/2024 08:42:40 PM Interpretation: Performing Lab: Notes/Report: [facility] , Sodium 143 136-145 mmol/L Potassium 4.1 [...] 0.9 Performing Lab: see note ML - [facility] LB IRON Reviewed date:05/17/2024 08:42:40 PM Interpretation: Performing Lab: Notes/Report: [facility] , Iron 104.0 50.0-170.0 ug/dL Performing Lab: see note ML - [facility] GLYCOHEMOGLOBIN A1C Reviewed date:05/17/2024 08:42:40 PM Interpretation: Performing Lab: Notes/Report: [facility] , Glycohemoglobin A1C 5.8 4.5-6.2 % ADA RECOMMENDED LIMIT 4.0 - 6.0 > 7.0 ACTION SUGGESTED ADA THERAPEUTIC TARGET < 7.0 Estimated Average Glucose 120 Performing Lab: see note ML - [facility] Reason For Referral No Information Medications Medication SIG (Take, Route, Frequency, Duration) Notes Start Date End Date Status Calcium 600 MG 2 tablet with meals Orally three times daily Active Diclofenac Sodium 75 MG 1 tablet as need ed Orally Twice a day; Duration: 30 PRN 11/18/2022 Active Protonix 40 MG 1 tablet Orally Once a day; Duration: 90 days Active tiZANidine HCl 4 MG 2 tablets Orally at bedtime; Duration: 15 PRN 04/06/2023 Active Vitamin D (Cholecalciferol) 50 MCG (2000 UT) 2 capsule Orally Once a day Active Tolterodine Tartrate ER 2 MG 1 capsule Orally Once a day; Duration: 30 days 01/30/2025 Active Immunizations Vaccine Route Administration Date Status Comme nts BCG Unknown 07/10/2014 Administered Flu, Fluad (68922) 65 yrs + High Dose Seasonal (1354-1860) Unknown 04/03/2022 Administered Flu, Fluad (09396) 65 yrs and older, single-dose syringe () IM Intramuscular 04/20/2024 Administered Flu, Flucelvax (12874) 2 yrs+, single-dose syringe (8006-1732) Unknown 05/30/2020 Administered Flu, Flucelvax (53469) 2 yrs+, single-dose syringe () Unknown 04/11/2021 Administered Flu, Fluzone High-Dose () (65370) 65 yrs+ Unknown 05/04/2023 Administered Hep A, [...] Status W/U Status Risk Notes Problem Sialolithiasis (96521987) Sialolithiasis (K11.5) Active confirmed Problem Senile osteoporosis (74559853) Senile osteoporosis (M81.0) Active confirmed Problem Gastroesophageal reflux disease (360246828) GERD (gastroesophageal reflux disease) (K21.9) Active confirmed Problem Bradycardia (72633018) Bradycardia (R00.1) Active confirmed Problem Plantar fasciitis (334587133) Plantar fasciitis (M72.2) Active confirmed Problem Osteoarthritis of left knee joint (662146240761775) Left knee DJD (M17.9) Active confirmed Problem Sialoadenitis (44204185) Sialoadenitis (K11.20) Active confirmed Vital Signs Blood pressure diastolic 84 mm Hg 01/30/2025 Height 64 in 01/30/2025 Blood pressure systolic 156 mm Hg 01/30/2025 Weight 178.6 lbs 01/30/2025 BMI 30.65 kg/m2 01/30/2025 Encounters Encounter Location Date Provider Diagnosis [address] [address] 01/30/2025 Marco Cruz UTI (urinary tract infection) N39.0 and Dysuria 788.[address] [address] 04/20/2024 Marco Camerony Sialoadenitis K11.20 ; GERD (gastroesophageal reflux disease) K21.9 ; Bradycardia R00.1 ; Left knee DJD M17.9 and Encounter for immunization Z23 [address] [address] 11/29/2024 Marco Cruz Encounter for Medica re annual wellness exam Z00.00 and Senile osteoporosis M81.0 [address] [place] [address] 03/13/2024 Marco Hoy [facility] [address] [facility] [place] [place] [address] 05/17/2024 Marco Hoy Hypothyroid E03.9 [facility] [address] [facility] [place] [address] 06/27/[address] [facility] [place] [address] [place] [facility] [address] 10/21/2024 Marco Hoy Sialoadenitis K11.[address] [facility] [place] [address] [place] [facility] [address] 12/01/2024 Marco Rakeshy [facility] [address] [facility] [place] [address] 12/30/2024 Marco Hoy Osteopenia M85.80 an d Medication management Z79.899 [facility] [place] [address] [place] [facility] [address] 01/09/2025 Marco Hoy Flank pain R10.9 [facility] [address] [facility] [place] [address] 01/09/2025 Marco Hoy [facility] [address] [facility] [place] [address] 01/19/2025 Marco Camerony UTI (urinary tract infection) N39.0 [facility] [address] [facility] [place] [address] 01/22/2025 Marco Hoy [facility] [address] [facility] [place] [address] 02/03/2025 Marco Camerony Assessments Encounter Date Diagnosis (ICD Code) Assessment [...] Date [employer] MEDICARE ADV PLAN [address] [address] [place] [address] [id number] Brie Taylor Self - patient is the insured [place] [address] [place] [address] [phone] [id number] Ollervid es, Brie Self - patient is the insured Medical (General) History Medical History History ICD Code Arthritis of knee, left M17.12 Acid reflux K21.9 Bradycardia R00.1 Arthritis of knee, left M17.12 Age-related bone loss M85.80 Calculus in salivary duct K11.5 Surgical History Surgery Date(Month/Year) left total hip arthropasty 10/11/2020 colonscopy 10/01/2022
--- OUTSIDE RECORDS SUMMARY | 2025-03-04 10:20 | XMS_ITS | Encounter Summary ---
Author Organization [employer] s tem Address [id number] [place] [address] Care Team Providers Care Front End Developer Name Role Phone Unavailable Primary Care Provider Unavailabl e Encounter Details Date Type Department Care Team (Late st Contact Info) Description 09/12/2024 Orders Only [facility] [address] [place] [id number] Leonor Guerrero CMA Aftercare following left hip [...]
--- OUTSIDE RECORDS SUMMARY | 2025-03-04 10:20 | XMS_ITS | Clinical Summary ---
Author Organization [facility] Address [address] [place] [address] Care Team Providers Care Crossbow Maker Name Role Phone Myron Brewster MD Primary Care Provider [phone] Allergies Active Allergy Reactions Criticality Noted Date [...] history exists Insurance MEDICARE ADVANTAGE Care Teams Crossbow Maker Relationship Specialty Start Date End Date Myron Brewster MD PCP - General Family Medicine 08/18/23
--- OUTSIDE RECORDS SUMMARY | 2025-03-04 10:20 | XMS_ITS | Encounter Summary ---
Author Organization [facility] Address [address] [place] [address] Care Team Providers Care Aircraft Engineer Name Role Phone Myron Brewster MD Primary Care Provider [phone] Encounter Details Date Type Department Care Team (Late st Contact Info) Description 09/01/2023 Orders Only [facility] [address] [place] [address] Davin Mosher MD [address] [place] [address] Social History Tobacco Use Types Packs/Day Years [...] on filedocumented in this encounter Care Teams Aircraft Engineer Relationship Specialty Start Date End Date Myron Brewster MD PCP - General Family Medicine 08/18/23 documented as of this encounter
--- OUTSIDE RECORDS SUMMARY | 2025-03-04 10:20 | XMS_ITS | Clinical Summary ---
Author Organization [facility] Address [address] [place] [address] Care Team Providers Care Oil Truck Driver Name Role Phone Unavailable Primary Care Provider [...] How often do you attend chur or yazidism services? More than 4 times per year 05/15/2022 Do you belong to any clubs o r organizations such as denominational groups, unions, fraternal or athletic groups, or [...] Recorded Patient Health Questionnaire-2 Score 0 05/15/2022 [facility] - Occupational Stress Questionnaire Answer Date Recorded [...] place to sleep or slept in a fpc (including now)? No 05/15/2022 [facility] [...] Risk Screening 2021 COVID-19 Vaccine ( season) 2025 Influenza Vaccine (#1) 2025 , 05/30/2020, 04/15/2020, [...] patient's age to complete this topic Insurance [employer] MEDIC[employer] ADVANTAGE
--- OUTSIDE RECORDS SUMMARY | 2025-03-04 10:23 | XMS_ITS | CCD ---
Author Organization [facility] CliniSynd Care Team Providers Care Province Archivist Name Role Phone Olivia Dean Unavailable TIMMY TINSLEY Referring Unavailable TIMMY TINSLEY Attending Unavailable Aretha Brewster Primary Care Physician [phone] JESSICA PACHECO Attending Unavailable YAZ ., JESSICA [...] ., DR CARIAS Attending Unavailable ZIEBER, DR ULIESS Pineda Consulting Unavailable HOY ., DR CARIAS [...] Unavailable MD Aretha Brewster Primary Care Provider [phone] MD Gordy Matthew Attending Provider [phone] EUGENIO GARCIA Attending Unavailable EUGENIO GARCIA Attending Unavailable EUGENIO GARCIA Attending Unavailable EUGENIO GARCIA Attending Unavailable ARETHA BREWSTER Referring Unavailable Unavailable Primary Care Provider UnavailBRIAN Vázquez Referring Unavailable BRIAN JAMES Attending Unavailable Aretha Brewster MD Attending Provider [phone] Aretha Brewster Admitting Unavailable Aretha Brewster Attending Unavailable Aretha Brewster Admitting Unavailable Aretha Brewster Attending Unavailable Gordy Matthew Admitting Unavailable Gordy Matthew Attending Unavailable Aretha Brewster Primary Care Unavailable Allergies Allergy Classification Reported Allergen(s) Allergy Type Date of Onset Reaction(s) Facility (6 sources) Erythromycin; Translations: [erythromycin] Drug Allergy 4 GI Disturbance [facility] (10 sources) Latex; Translations: [LATEX] Propensity to adverse reactions 2 Inflammatory dermatosis (disorder), Dermatitis, Hives [facility] Repository (5 sources) Penicillin G Drug Allergy 3 anaphylaxis [facility] (3 sources) Penicillins; Translations: [PENICILLINS] Propensity to adverse reactions to drug (disorder) 2 Anaphylaxis (disorder) [facility] Repository (6 sources) ERYTHROMYCIN BASE; Translations: [ERYTHROMYCIN BASE] Propensity to adverse reactions to drug (disorder) 2 GI upset [facility] Repository (1 source) natural latex rubber Drug allergy (disorder) 3 The Repository (1 source) Penicillin Drug Allergy [facility] Repository (1 source) Latex Drug allergy (disorder) 3 [facility] Repository (1 source) Penicillin Drug Allergy 3 [facility] Repository Medications Current Medications Medication Drug Class(es) [...] 1.5 mg/ml oral solution (1 source) Uncompetitive K-wzfdwg-N-aspartat e 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, Sigma-1 Agonist Start: 06-14-2023 take 10 mL by mouth every eight hours Simpson DM 7.5-7.5 MG/5ML 10 mL Orally every [...] Onset: 09-20-2024 Chronic Other aftercare (1 source) long term care administrator (current) use of aspirin; Translations: [PENITENTIARY CURRENT USE OF ASPIRIN] Onset: 10-02-2022 Episodic [...] 03-24-2022 Episodic Other aftercare (1 source) Other long term care administrator (current) drug therapy; Translations: [OT PENITENTIARY CURRENT DRUG THERAPY] Onset: 01-14-2022 Episodic Other bone disease and musculoskeletal deformities (1 source) Other specified disorders of bone density and structure, unspecified site; Translations: [[facility] D/O BONE DEN STRUCT UNS SITE] Onset: [...] (U) No Growth 2 Days PERFORMED BY: [place] [address] PATHOLOGIST ASSISTED LIVING CARE MANAGER CHALO ALANIS M.D. Normal [facility] Comment on above: Performed By: #### C RP, CK, CBC, CMP, T4F, ESR, TSH3, ADDONUAPLUS #### [place] [address] [place] #### SPE, KARUNA,URINE, BIGG, HBCAB, ALDOLASE, RPR W RFX, HCV RX PCR, UPE RAND, HBSAB, QUANT TB, CHROMATIN, HBSAG #### [facility] , Urine Cultureon 01-09-2025 Bacteria identified Cx Nom (U) 15,000 colonies/ml mixed bacterial skin contaminants 2 Days PERFORMED BY: [place] [address] PATHOLOGIST ASSISTED LIVING CARE MANAGER CHALO ALANIS M.D. Normal [facility] Comment on above: Performed By: #### C RP, CK, CBC, CMP, T4F, ESR, TSH3, ADDONUAPLUS #### [address] #### SPE, KARUNA,URINE, BIGG, HBCAB, ALDOLASE, RPR W RFX, HCV RX PCR, UPE RAND, HBSAB, QUANT TB, CHROMATIN, HBSAG #### [facility] , Urine cultureOrdered By: Kalyan Brewster on 01-09-2025 Bacteria identified Cx Nom (U) 2 Days [facility] XR HIP LT 2-3 VIEWS W OR [...] Price MD on 09/20/2024 3:18 PM Normal [facility] BIGG Antinuclear Antibodieson 03-09-2024 Antinuclear Abs, IFA Negative Normal . [facility] Comment on above: Result Comment: Nega tive <1:80 Borderline 1:80 Positive >1:80 ICAP nomenclature: [id number] For more information about Hep-2 cell patterns use ANApatterns.org, the official website for the International Consensus on Antinuclear Antibody (BIGG) Patterns (ICAP). Performed at: - [facility] [id number] Creative Services Designer: Jasiel Key PhD, Phone: [phone] Performed By: #### C RP, CK, CBC, CMP, T4F, ESR, TSH3, ADDONUAPLUS #### [address] #### SPE, KARUNA,URINE, BIGG, HBCAB, ALDOLASE, RPR W RFX, HCV RX PCR, UPE RAND, HBSAB, QUANT TB, CHROMATIN, HBSAG #### [facility] , Alanine aminotransferase [En zymatic activity/volume] in Serum or PlasmaOrdered By: Gordy Matthew on 03-09-2024 ALT [Catalytic activity/Vol] 15 U/L Normal 7-52 [facility] Comment on above: Performed By: #### C RP, CK, CBC, CMP, T4F, ESR, TSH3, ADDONUAPLUS #### [place] [address] [place] #### SPE, KARUNA,URINE, BIGG, HBCAB, ALDOLASE, RPR W RFX, HCV RX PCR, UPE RAND, HBSAB, QUANT TB, CHROMATIN, HBSAG #### [facility] , Albumin [Mass/volume] in Ser um or Plasma by Bromocresol green (BCG) dye binding methoOrdered By: Gordy Matthew on 03-09-2024 Albumin BCG dye [Mass/Vol] 4.2 g/dL 3.5-5.7 [facility] Aldolaseon 03-09-2024 Aldolase 3.6 U/L Normal 3.3-10.3 [facility] Comment on above: Result Comment: Perf ormed at: - [facility] [address] [id number] Creative Services Designer: Jasiel Key PhD, Phone: [phone] PERFORMED BY: [place] [address] PATHOLOGIST ASSISTED LIVING CARE MANAGER JOCELYN EDGE M.D. Performed By: #### C RP, CK, CBC, CMP, T4F, ESR, TSH3, ADDONUAPLUS #### [address] #### SPE, KARUNA,URINE, BIGG, HBCAB, ALDOLASE, RPR W RFX, HCV RX PCR, UPE RAND, HBSAB, QUANT TB, CHROMATIN, HBSAG #### [facility] , Alkaline phosphatase [Enzyma tic activity/volume] in Serum or PlasmaOrdered By: Gordy Matthew on 03-09-2024 ALP [Catalytic activity/Vol] 77 U/L Normal 34-104 [facility] Comment on above: Performed By: #### C RP, CK, CBC, CMP, T4F, ESR, TSH3, ADDONUAPLUS #### [place] [address] [place] #### SPE, KARUNA,URINE, BIGG, HBCAB, ALDOLASE, RPR W RFX, HCV RX PCR, UPE RAND, HBSAB, QUANT TB, CHROMATIN, HBSAG #### [facility] , Aspartate aminotransferase [ Enzymatic activity/volume] in Serum or PlasmaOrdered By: Gordy Matthew on 03-09-2024 AST [Catalytic activity/Vol] 13 U/L Normal 13-39 [facility] Comment on above: Performed By: #### C RP, CK, CBC, CMP, T4F, ESR, TSH3, ADDONUAPLUS #### [place] [address] [place] #### SPE, KARUNA,URINE, BIGG, HBCAB, ALDOLASE, RPR W RFX, HCV RX PCR, UPE RAND, HBSAB, QUANT TB, CHROMATIN, HBSAG #### [facility] , Automated basophil %Ordered By: Gordy Matthew on 03-09-2024 Basophils/100 WBC (Bld) 0.5 % Normal . [facility] Comment on above: Performed By: #### C RP, CK, CBC, CMP, T4F, ESR, TSH3, ADDONUAPLUS #### [facility] [address] [place] [address] [place] #### SPE, KARUNA,URINE, BIGG, HBCAB, ALDOLASE, RPR W RFX, HCV RX PCR, UPE RAND, HBSAB, QUANT TB, CHROMATIN, HBSAG #### [facility] , Automated basophil countOrde red By: Gordy Matthew on 03-09-2024 Basophils (Bld) [#/Vol] 0.1 10*3/uL Normal 0.0-0.2 [facility] Comment on above: Performed By: #### C RP, CK, CBC, CMP, T4F, ESR, TSH3, ADDONUAPLUS #### [facility] [address] [place] [address] [place] #### SPE, KARUNA,URINE, BIGG, HBCAB, ALDOLASE, RPR W RFX, HCV RX PCR, UPE RAND, HBSAB, QUANT TB, CHROMATIN, HBSAG #### [facility] , Automated blood monocyte cou ntOrdered By: Gordy Matthew on 03-09-2024 Monocytes (Bld) [#/Vol] 1.0 10*3/uL High 0.0-0.8 [facility] Comment on above: Performed By: #### C RP, CK, CBC, CMP, T4F, ESR, TSH3, ADDONUAPLUS #### [facility] [address] [place] [address] [place] #### SPE, KARUNA,URINE, BIGG, HBCAB, ALDOLASE, RPR W RFX, HCV RX PCR, UPE RAND, HBSAB, QUANT TB, CHROMATIN, HBSAG #### [facility] , Automated eosinophil %Ordere d By: Gordy Matthew on 03-09-2024 Eosinophils/100 WBC (Bld) 0.4 % Normal . [facility] Comment on above: Performed By: #### C RP, CK, CBC, CMP, T4F, ESR, TSH3, ADDONUAPLUS #### [facility] [address] [place] [address] #### SPE, KARUNA,URINE, BIGG, HBCAB, ALDOLASE, RPR W RFX, HCV RX PCR, UPE RAND, HBSAB, QUANT TB, CHROMATIN, HBSAG #### [facility] , Automated eosinophil countOr dered By: Gordy Matthew on 03-09-2024 Eosinophils (Bld) [#/Vol] 0.0 10*3/uL Normal 0.0-0.45 [facility] Comment on above: Performed By: #### C RP, CK, CBC, CMP, T4F, ESR, TSH3, ADDONUAPLUS #### [facility] [address] [place] [address] [place] #### SPE, KARUNA,URINE, BIGG, HBCAB, ALDOLASE, RPR W RFX, HCV RX PCR, UPE RAND, HBSAB, QUANT TB, CHROMATIN, HBSAG #### [facility] , Automated monocyte %Ordered By: Gordy Matthew on 03-09-2024 Monocytes/100 WBC (Bld) 8.5 % Normal . [facility] Comment on above: Performed By: #### C RP, CK, CBC, CMP, T4F, ESR, TSH3, ADDONUAPLUS #### [facility] [address] [place] [address] [place] #### SPE, KARUNA,URINE, BIGG, HBCAB, ALDOLASE, RPR W RFX, HCV RX PCR, UPE RAND, HBSAB, QUANT TB, CHROMATIN, HBSAG #### [facility] , Automated neutrophil %Ordere d By: Gordy Matthew on 03-09-2024 Neutrophils/100 WBC (Bld) 66.2 % Normal . [facility] Comment on above: Performed By: #### C RP, CK, CBC, CMP, T4F, ESR, TSH3, ADDONUAPLUS #### [facility] [address] [place] [address] [place] #### SPE, KARUNA,URINE, BIGG, HBCAB, ALDOLASE, RPR W RFX, HCV RX PCR, UPE RAND, HBSAB, QUANT TB, CHROMATIN, HBSAG #### [facility] , Bacteria [Presence] in Urine by AutomatedOrdered By: Gordy Matthew on 03-09-2024 Bacteria Auto Ql (U) Rare [HPF] None Seen [facility] Bilirubin Test strip Ql (U)O rdered By: Gordy Matthew on 03-09-2024 Bilirubin Ql (U) Negative Negative [facility] Bilirubin.total [Mass/volume ] in Serum or PlasmaOrdered By: Gordy Farooqrow on 03-09-2024 Bilirubin [Mass/Vol] 0.4 mg/dL Normal 0.3-1.0 [facility] Comment on above: Performed By: #### C RP, CK, CBC, CMP, T4F, ESR, TSH3, ADDONUAPLUS #### [place] [address] [place] #### SPE, KARUNA,URINE, BIGG, HBCAB, ALDOLASE, RPR W RFX, HCV RX PCR, UPE RAND, HBSAB, QUANT TB, CHROMATIN, HBSAG #### [facility] , C reactive protein [Mass/vol ume] in Serum or PlasmaOrdered By: Gordylarry Matthew on 03-09-2024 CRP [Mass/Vol] < 0.5 mg/dL 0.0-0.5 [facility] C-Reactive Proteinon 024 CRP [Mass/Vol] mg/L Normal 0.0-0.5 [facility] Comment on above: Performed By: #### C RP, CK, CBC, CMP, T4F, ESR, TSH3, ADDONUAPLUS #### [place] [address] [place] #### SPE, KARUNA,URINE, BIGG, HBCAB, ALDOLASE, RPR W RFX, HCV RX PCR, UPE RAND, HBSAB, QUANT TB, CHROMATIN, HBSAG #### [facility] , Calcium [Mass/volume] in Ser um or PlasmaOrdered By: Gordy Matthew on 03-09-2024 Calcium [Mass/Vol] 10.6 mg/dL High 8.6-10.3 [facility] Comment on above: Performed By: #### C RP, CK, CBC, CMP, T4F, ESR, TSH3, ADDONUAPLUS #### [facility] [address] [place] [address] #### SPE, KARUNA,URINE, BIGG, HBCAB, ALDOLASE, RPR W RFX, HCV RX PCR, UPE RAND, HBSAB, QUANT TB, CHROMATIN, HBSAG #### [facility] , Carbon dioxide, total [Moles /volume] in Serum or PlasmaOrdered By: Gordy Matthew on 03-09-2024 CO2 [Moles/Vol] 30.4 mmol/L Normal 21.0-31.0 [facility] Comment on above: Performed By: #### C RP, CK, CBC, CMP, T4F, ESR, TSH3, ADDONUAPLUS #### [facility] [address] [place] [address] [place] #### SPE, KARUNA,URINE, BIGG, HBCAB, ALDOLASE, RPR W RFX, HCV RX PCR, UPE RAND, HBSAB, QUANT TB, CHROMATIN, HBSAG #### [facility] , Chloride [Moles/volume] in S billy or PlasmaOrdered By: Gordy Matthew on 03-09-2024 Chloride [Moles/Vol] 103 mmol/L Normal 98-107 [facility] Comment on above: Performed By: #### C RP, CK, CBC, CMP, T4F, ESR, TSH3, ADDONUAPLUS #### [facility] [address] [place] [address] [place] #### SPE, KARUNA,URINE, BIGG, HBCAB, ALDOLASE, RPR W RFX, HCV RX PCR, UPE RAND, HBSAB, QUANT TB, CHROMATIN, HBSAG #### [facility] , Chromatin Antibodyon 024 Chromatin Antibody <0.2 Normal 0.0-0.9 [facility] Comment on above: Result Comment: Perf ormed at: - [facility] [address] [id number] Creative Services Designer: Jasiel Key PhD, Phone: [phone] Performed By: #### C RP, CK, CBC, CMP, T4F, ESR, TSH3, ADDONUAPLUS #### [facility] [address] [place] [address] #### SPE, KARUNA,URINE, BIGG, HBCAB, ALDOLASE, RPR W RFX, HCV RX PCR, UPE RAND, HBSAB, QUANT TB, CHROMATIN, HBSAG #### [facility] , Color of Urine by AutoOrdere d By: Gordy Matthew on 03-09-2024 Color (U) Light-yellow Normal Yellow [facility] Comment on above: Order Comment: Name Collection Type:: Clean-Voided Midstream Performed By: #### C RP, CK, CBC, CMP, T4F, ESR, TSH3, ADDONUAPLUS #### [facility] [address] [place] [address] [place] #### SPE, KARUNA,URINE, BIGG, HBCAB, ALDOLASE, RPR W RFX, HCV RX PCR, UPE RAND, HBSAB, QUANT TB, CHROMATIN, HBSAG #### [facility] , Complete Blood Count Auto Di ffon 03-09-2024 Mean Corpuscular HGB Conc 33.0 g/dL Normal 32.0-35.0 [facility] Comment on above: Performed By: #### C RP, CK, CBC, CMP, T4F, ESR, TSH3, ADDONUAPLUS #### [facility] [address] [place] [address] [place] #### SPE, KARUNA,URINE, BIGG, HBCAB, ALDOLASE, RPR W RFX, HCV RX PCR, UPE RAND, HBSAB, QUANT TB, CHROMATIN, HBSAG #### [facility] , NRBC% 0.1 /100{WBC} Normal 0-0.5 [facility] Comment on above: Performed By: #### C RP, CK, CBC, CMP, T4F, ESR, TSH3, ADDONUAPLUS #### [place] [address] [place] #### SPE, KARUNA,URINE, BIGG, HBCAB, ALDOLASE, RPR W RFX, HCV RX PCR, UPE RAND, HBSAB, QUANT TB, CHROMATIN, HBSAG #### [facility] , Comprehensive Metabolic Pane erika 03-09-2024 Albumin [Mass/Vol] 4.2 g/dL Normal 3.5-5.7 [facility] Comment on above: Performed By: #### C RP, CK, CBC, CMP, T4F, ESR, TSH3, ADDONUAPLUS #### [place] [address] [place] #### SPE, KARUNA,URINE, BIGG, HBCAB, ALDOLASE, RPR W RFX, HCV RX PCR, UPE RAND, HBSAB, QUANT TB, CHROMATIN, HBSAG #### [facility] , GFR/1.73 sq M.predicted MDRD (S/P/Bld) [Vol rate/Area] mL/min/{1.73_m2} Normal [facility] Comment on above: Performed By: #### C RP, CK, CBC, CMP, T4F, ESR, TSH3, ADDONUAPLUS #### [place] [address] [place] #### SPE, KARUNA,URINE, BIGG, HBCAB, ALDOLASE, RPR W RFX, HCV RX PCR, UPE RAND, HBSAB, QUANT TB, CHROMATIN, HBSAG #### [facility] , Creatine kinase [Enzymatic a ctivity/volume] in Serum or PlasmaOrdered By: Gordy Matthew on 03-09-2024 CK [Catalytic activity/Vol] 25 U/L Low 30-223 [facility] Comment on above: Result Comment: PERF ORMED BY: [address] [address] PATHOLOGIST ASSISTED LIVING CARE MANAGER JOCELYN EDGE M.D. Performed By: #### C RP, CK, CBC, CMP, T4F, ESR, TSH3, ADDONUAPLUS #### [address] #### SPE, KARUNA,URINE, BIGG, HBCAB, ALDOLASE, RPR W RFX, HCV RX PCR, UPE RAND, HBSAB, QUANT TB, CHROMATIN, HBSAG #### [facility] , Creatinine [Mass/volume] in Serum or PlasmaOrdered By: Gordy Matthew on 03-09-2024 Creatinine [Mass/Vol] 0.80 mg/dL Normal 0.60-1.20 [facility] Comment on above: Performed By: #### C RP, CK, CBC, CMP, T4F, ESR, TSH3, ADDONUAPLUS #### [address] #### SPE, KARUNA,URINE, BIGG, HBCAB, ALDOLASE, RPR W RFX, HCV RX PCR, UPE RAND, HBSAB, QUANT TB, CHROMATIN, HBSAG #### [facility] , Dipstick and Microscopicon 0 03-09-2024 Bacteria,Urine Rare Normal None Seen [facility] Comment on above: Order Comment: Name Collection Type:: Clean-Voided Midstream Performed By: #### C RP, CK, CBC, CMP, T4F, ESR, TSH3, ADDONUAPLUS #### [address] #### SPE, KARUNA,URINE, BIGG, HBCAB, ALDOLASE, RPR W RFX, HCV RX PCR, UPE RAND, HBSAB, QUANT TB, CHROMATIN, HBSAG #### [facility] , Bilirubin,Urine Negative Normal Negative [facility] Comment on above: Order Comment: Name Collection Type:: Clean-Voided Midstream Performed By: #### C RP, CK, CBC, CMP, T4F, ESR, TSH3, ADDONUAPLUS #### [address] #### SPE, KARUNA,URINE, BIGG, HBCAB, ALDOLASE, RPR W RFX, HCV RX PCR, UPE RAND, HBSAB, QUANT TB, CHROMATIN, HBSAG #### [facility] , Glucose Ql (U) Normal Normal Normal [facility] Comment on above: Order Comment: Name Collection Type:: Clean-Voided Midstream Performed By: #### C RP, CK, CBC, CMP, T4F, ESR, TSH3, ADDONUAPLUS #### [address] #### SPE, KARUNA,URINE, BIGG, HBCAB, ALDOLASE, RPR W RFX, HCV RX PCR, UPE RAND, HBSAB, QUANT TB, CHROMATIN, HBSAG #### [facility] , Hyaline Casts,Urine None Normal 0-8 [facility] Comment on above: Order Comment: Name Collection Type:: Clean-Voided Midstream Performed By: #### C RP, CK, CBC, CMP, T4F, ESR, TSH3, ADDONUAPLUS #### [address] #### SPE, KARUNA,URINE, BIGG, HBCAB, ALDOLASE, RPR W RFX, HCV RX PCR, UPE RAND, HBSAB, QUANT TB, CHROMATIN, HBSAG #### [facility] , Mucus,Urine Rare Normal [facility] Comment on above: Order Comment: Name Collection Type:: Clean-Voided Midstream Result Comment: PERF ORMED BY: [place] [address] PATHOLOGIST ASSISTED LIVING CARE MANAGER JOCELYN EDGE M.D. Performed By: #### C RP, CK, CBC, CMP, T4F, ESR, TSH3, ADDONUAPLUS #### [address] #### SPE, KARUNA,URINE, BIGG, HBCAB, ALDOLASE, RPR W RFX, HCV RX PCR, UPE RAND, HBSAB, QUANT TB, CHROMATIN, HBSAG #### [facility] , Nitrite,Urine Negative Normal Negative [facility] Comment on above: Order Comment: Name Collection Type:: Clean-Voided Midstream Performed By: #### C RP, CK, CBC, CMP, T4F, ESR, TSH3, ADDONUAPLUS #### [address] #### SPE, KARUNA,URINE, BIGG, HBCAB, ALDOLASE, RPR W RFX, HCV RX PCR, UPE RAND, HBSAB, QUANT TB, CHROMATIN, HBSAG #### [facility] , Occult Blood,Urine Negative Normal Negative [facility] Comment on above: Order Comment: Name Collection Type:: Clean-Voided Midstream Performed By: #### C RP, CK, CBC, CMP, T4F, ESR, TSH3, ADDONUAPLUS #### [address] #### SPE, KARUNA,URINE, BIGG, HBCAB, ALDOLASE, RPR W RFX, HCV RX PCR, UPE RAND, HBSAB, QUANT TB, CHROMATIN, HBSAG #### [facility] , Protein,Urine Negative Normal Negative [facility] Comment on above: Order Comment: Name Collection Type:: Clean-Voided Midstream Performed By: #### C RP, CK, CBC, CMP, T4F, ESR, TSH3, ADDONUAPLUS #### [address] #### SPE, KARUNA,URINE, BIGG, HBCAB, ALDOLASE, RPR W RFX, HCV RX PCR, UPE RAND, HBSAB, QUANT TB, CHROMATIN, HBSAG #### [facility] , RBC,Urine 1-2 Normal 0-4 [facility] Comment on above: Order Comment: Name Collection Type:: Clean-Voided Midstream Performed By: #### C RP, CK, CBC, CMP, T4F, ESR, TSH3, ADDONUAPLUS #### [address] #### SPE, KARUNA,URINE, BIGG, HBCAB, ALDOLASE, RPR W RFX, HCV RX PCR, UPE RAND, HBSAB, QUANT TB, CHROMATIN, HBSAG #### [facility] , Specificy [place],Urine 1.013 Normal 1.001-1.030 [facility] Comment on above: Order Comment: Name Collection Type:: Clean-Voided Midstream Performed By: #### C RP, CK, CBC, CMP, T4F, ESR, TSH3, ADDONUAPLUS #### [address] #### SPE, KARUNA,URINE, BIGG, HBCAB, ALDOLASE, RPR W RFX, HCV RX PCR, UPE RAND, HBSAB, QUANT TB, CHROMATIN, HBSAG #### [facility] , Urobilinogen,Urine Normal Normal Normal [facility] Comment on above: Order Comment: Name Collection Type:: Clean-Voided Midstream Performed By: #### C RP, CK, CBC, CMP, T4F, ESR, TSH3, ADDONUAPLUS #### [address] #### SPE, KARUNA,URINE, BIGG, HBCAB, ALDOLASE, RPR W RFX, HCV RX PCR, UPE RAND, HBSAB, QUANT TB, CHROMATIN, HBSAG #### [facility] , WBC,Urine 3-4 Normal 0-4 [facility] Comment on above: Order Comment: Name Collection Type:: Clean-Voided Midstream Performed By: #### C RP, CK, CBC, CMP, T4F, ESR, TSH3, ADDONUAPLUS #### [address] #### SPE, KARUNA,URINE, BIGG, HBCAB, ALDOLASE, RPR W RFX, HCV RX PCR, UPE RAND, HBSAB, QUANT TB, CHROMATIN, HBSAG #### [facility] , Epithelial cells.squamous [# /area] in Urine sediment by Automated countOrdered By: Gordy Matthew on 03-09-2024 Epithelial cells.squamous Auto (Urine sed) [#/Area] N/A [facility] Erythrocyte Sedimentation Ra conchita 03-09-2024 ESR (Bld) [Velocity] 25 mm/h Normal 0-29 [facility] Comment on above: Result Comment: PERF ORMED BY: [place] [address] PATHOLOGIST ASSISTED LIVING CARE MANAGER JOCELYN EDGE M.D. Performed By: #### C RP, CK, CBC, CMP, T4F, ESR, TSH3, ADDONUAPLUS #### [facility] [address] [place] [address] #### SPE, KARUNA,URINE, BIGG, HBCAB, ALDOLASE, RPR W RFX, HCV RX PCR, UPE RAND, HBSAB, QUANT TB, CHROMATIN, HBSAG #### [facility] , Erythrocyte distribution wid th [Ratio] by Automated countOrdered By: Gordy Matthew on 03-09-2024 Erythrocyte distribution width (RBC) [Ratio] 14.1 % Normal 11.9-15.3 [facility] Comment on above: Performed By: #### C RP, CK, CBC, CMP, T4F, ESR, TSH3, ADDONUAPLUS #### [facility] [address] [place] [address] #### SPE, KARUNA,URINE, BIGG, HBCAB, ALDOLASE, RPR W RFX, HCV RX PCR, UPE RAND, HBSAB, QUANT TB, CHROMATIN, HBSAG #### [facility] , Erythrocyte sedimentation ra te by Photometric methodOrdered By: Gordy Matthew on 03-09-2024 ESR Photometric method (Bld) [Velocity] 25 mm/hr 0-29 [facility] Erythrocytes [#/area] in Uri ne sediment by Automated countOrdered By: Gordy Matthew on 03-09-2024 RBC Auto (Urine sed) [#/Area] 1-2 [HPF] 0-4 [facility] Erythrocytes [#/volume] in B lood by Automated countOrdered By: Gordy Matthew on 03-09-2024 RBC (Bld) [#/Vol] 4.71 10*6/uL Normal 3.60-5.00 [facility] Comment on above: Performed By: #### C RP, CK, CBC, CMP, T4F, ESR, TSH3, ADDONUAPLUS #### [facility] [address] #### SPE, KARUNA,URINE, BIGG, HBCAB, ALDOLASE, RPR W RFX, HCV RX PCR, UPE RAND, HBSAB, QUANT TB, CHROMATIN, HBSAG #### [facility] , Glucose [Mass/volume] in Ser um or PlasmaOrdered By: Gordy Matthew on 03-09-2024 Glucose [Mass/Vol] 100 mg/dL Normal 70-100 [facility] Comment on above: ADA recommended refe rence rangeRandom Glucose Reference Range is dependent on time and content of last meal. Glucose of more than 200 mg/dL in a nonstressed, ambulatory subject supports the diagnosis of Diabetes Mellitus. Result Comment: [place] om Glucose Reference Range is dependent on time and content of last meal. Glucose of more than 200 mg/dL in a nonstressed, ambulatory subject supports the diagnosis of Diabetes Mellitus. ADA recommended reference range Performed By: #### C RP, CK, CBC, CMP, T4F, ESR, TSH3, ADDONUAPLUS #### [place] [address] [place] #### SPE, KARUNA,URINE, BIGG, HBCAB, ALDOLASE, RPR W RFX, HCV RX PCR, UPE RAND, HBSAB, QUANT TB, CHROMATIN, HBSAG #### [facility] , Glucose [Mass/volume] in Uri ne by Test stripOrdered By: Gordy Matthew on 03-09-2024 Glucose Test strip (U) [Mass/Vol] Normal mg/dL Normal [facility] Hematocrit [Volume Fraction] of Blood by Automated countOrdered By: Gordy Matthew on 03-09-2024 Hematocrit (Bld) [Volume fraction] 41.1 % Normal 34.0-46.4 [facility] Comment on above: Performed By: #### C RP, CK, CBC, CMP, T4F, ESR, TSH3, ADDONUAPLUS #### [facility] [address] [place] [address] #### SPE, KARUNA,URINE, BIGG, HBCAB, ALDOLASE, RPR W RFX, HCV RX PCR, UPE RAND, HBSAB, QUANT TB, CHROMATIN, HBSAG #### [facility] , Hemoglobin Test strip Ql (U) Ordered By: Gordy Matthew on 03-09-2024 Hemoglobin Ql (U) Negative Negative [facility] Hemoglobin [Mass/volume] in BloodOrdered By: Gordy Vipul on 03-09-2024 Hemoglobin (Bld) [Mass/Vol] 13.6 g/dL Normal 11.8-15.4 [facility] Comment on above: Performed By: #### C RP, CK, CBC, CMP, T4F, ESR, TSH3, ADDONUAPLUS #### [address] #### SPE, KARUNA,URINE, BIGG, HBCAB, ALDOLASE, RPR W RFX, HCV RX PCR, UPE RAND, HBSAB, QUANT TB, CHROMATIN, HBSAG #### [facility] , Hep C Ab wRfx to Qnt PCRon 0 03-09-2024 Hepatitis C Virus Antibody Non-Reactive Normal Non Reactive [facility] Comment on above: Performed By: #### C RP, CK, CBC, CMP, T4F, ESR, TSH3, ADDONUAPLUS #### [address] #### SPE, KARUNA,URINE, BIGG, HBCAB, ALDOLASE, RPR W RFX, HCV RX PCR, UPE RAND, HBSAB, QUANT TB, CHROMATIN, HBSAG #### [facility] , Interpretation Hepatitis C Comment Normal . [facility] Comment on above: Result Comment: Not infected with HCV unless early or acute infection is suspected (which may be delayed in an immunocompromised individual), or other evidence exists to indicate HCV infection. Performed By: #### C RP, CK, CBC, CMP, T4F, ESR, TSH3, ADDONUAPLUS #### [place] [address] [place] #### SPE, KARUNA,URINE, BIGG, HBCAB, ALDOLASE, RPR W RFX, HCV RX PCR, UPE RAND, HBSAB, QUANT TB, CHROMATIN, HBSAG #### [facility] , Hepatitis B Core Antibodyon 03-09-2024 Hepatitis B Core Antibody Negative Normal Negative [facility] Comment on above: Result Comment: Perf ormed at: [facility] [address] [id number] Creative Services Designer: Jasiel Key PhD, Phone: [phone] Performed By: #### C RP, CK, CBC, CMP, T4F, ESR, TSH3, ADDONUAPLUS #### [place] [address] [place] #### SPE, KARUNA,URINE, BIGG, HBCAB, ALDOLASE, RPR W RFX, HCV RX PCR, UPE RAND, HBSAB, QUANT TB, CHROMATIN, HBSAG #### [facility] , Hepatitis B Surface Antibody on 03-09-2024 Hepatitis B Surface Antibody Non-Reactive Normal . [facility] Comment on above: Result Comment: Non Reactive: Not immune to HBV infection. Equivocal: Unable to determine if anti-HBs is present at levels consistent with immunity. Reactive: Anti-HBs concentration detected at greater than 10 mIU/mL. Individual is considered to be immune to infection with HBV. Performed By: #### C RP, CK, CBC, CMP, T4F, ESR, TSH3, ADDONUAPLUS #### [place] [address] [place] #### SPE, KARUNA,URINE, BIGG, HBCAB, ALDOLASE, RPR W RFX, HCV RX PCR, UPE RAND, HBSAB, QUANT TB, CHROMATIN, HBSAG #### [facility] , Hepatitis B Surface Antigeno n 03-09-2024 HBsAg Screen Negative Normal Negative [facility] Comment on above: Result Comment: PERF ORMED BY: [place] [address] PATHOLOGIST ASSISTED LIVING CARE MANAGER JOCELYN EDGE M.D. Performed By: #### C RP, CK, CBC, CMP, T4F, ESR, TSH3, ADDONUAPLUS #### [address] #### SPE, KARUNA,URINE, BIGG, HBCAB, ALDOLASE, RPR W RFX, HCV RX PCR, UPE RAND, HBSAB, QUANT TB, CHROMATIN, HBSAG #### [facility] , Hyaline casts [#/area] in Ur ine sediment by Automated countOrdered By: Gordy Matthew on 03-09-2024 Hyaline casts Auto (Urine sed) [#/Area] None [LPF] 0-8 [facility] Immunofixation, (KARUNA), Urine on 03-09-2024 Immunofixation, (KARUNA), Urine Comment Normal . [facility] Comment on above: Result Comment: No m onoclonality detected. Performed at: - [facility] [id number] Creative Services Designer: Jasiel Key PhD, Phone: [phone] Performed By: #### C RP, CK, CBC, CMP, T4F, ESR, TSH3, ADDONUAPLUS #### [place] [address] [place] #### SPE, KARUNA,URINE, BIGG, HBCAB, ALDOLASE, RPR W RFX, HCV RX PCR, UPE RAND, HBSAB, QUANT TB, CHROMATIN, HBSAG #### [facility] , Ketones [Presence] in Urine by Test stripOrdered By: Gordy Matthew on 03-09-2024 Ketones Ql (U) Negative Normal Negative [facility] Comment on above: Order Comment: Name Collection Type:: Clean-Voided Midstream Performed By: #### C RP, CK, CBC, CMP, T4F, ESR, TSH3, ADDONUAPLUS #### [facility] [address] [place] [address] [place] #### SPE, KARUNA,URINE, BIGG, HBCAB, ALDOLASE, RPR W RFX, HCV RX PCR, UPE RAND, HBSAB, QUANT TB, CHROMATIN, HBSAG #### [facility] , Leukocyte esterase [Presence ] in Urine by Test stripOrdered By: Gordy Matthew on 03-09-2024 Leukocyte esterase Test strip Ql (U) Negative Normal Negative [facility] Comment on above: Order Comment: Name Collection Type:: Clean-Voided Midstream Performed By: #### C RP, CK, CBC, CMP, T4F, ESR, TSH3, ADDONUAPLUS #### [facility] [address] [place] [address] [place] #### SPE, KARUNA,URINE, BIGG, HBCAB, ALDOLASE, RPR W RFX, HCV RX PCR, UPE RAND, HBSAB, QUANT TB, CHROMATIN, HBSAG #### [facility] , Leukocytes [#/area] in Urine sediment by Automated countOrdered By: Gordy Matthew on 03-09-2024 WBC Auto (Urine sed) [#/Area] 3-4 [HPF] 0-4 [facility] Leukocytes [#/volume] correc [place] for nucleated erythrocytes in Blood by Automated counOrdered By: Gordy Matthew on 03-09-2024 WBC corrected for nucl RBC Auto (Bld) [#/Vol] 11.4 10*3/uL 3.8-11.6 [facility] Leukocytes [#/volume] in Blo od by Automated countOrdered By: Gordy Matthew on 03-09-2024 WBC (Bld) [#/Vol] 11.4 10*3/uL Normal 3.8-11.6 [facility] Comment on above: Performed By: #### C RP, CK, CBC, CMP, T4F, ESR, TSH3, ADDONUAPLUS #### [place] [address] [place] #### SPE, KARUNA,URINE, BIGG, HBCAB, ALDOLASE, RPR W RFX, HCV RX PCR, UPE RAND, HBSAB, QUANT TB, CHROMATIN, HBSAG #### [facility] , Lymphocytes [#/volume] in Bl ood by Automated countOrdered By: Gordy Matthew on 03-09-2024 Lymphocytes (Bld) [#/Vol] 2.8 10*3/uL Normal 1.00-4.8 [facility] Comment on above: Performed By: #### C RP, CK, CBC, CMP, T4F, ESR, TSH3, ADDONUAPLUS #### [address] #### SPE, KARUNA,URINE, BIGG, HBCAB, ALDOLASE, RPR W RFX, HCV RX PCR, UPE RAND, HBSAB, QUANT TB, CHROMATIN, HBSAG #### [facility] , Lymphocytes/100 leukocytes i n Blood by Automated countOrdered By: Gordy Matthew on 03-09-2024 Lymphocytes/100 WBC (Bld) 24.4 % Normal . [facility] Comment on above: Performed By: #### C RP, CK, CBC, CMP, T4F, ESR, TSH3, ADDONUAPLUS #### [place] [address] [place] #### SPE, KARUNA,URINE, BIGG, HBCAB, ALDOLASE, RPR W RFX, HCV RX PCR, UPE RAND, HBSAB, QUANT TB, CHROMATIN, HBSAG #### [facility] , MCH [Entitic mass] by Automa dakotah countOrdered By: Gordy Matthew on 03-09-2024 MCH (RBC) [Entitic mass] 28.8 pg Normal 24.7-34.3 [facility] Comment on above: Performed By: #### C RP, CK, CBC, CMP, T4F, ESR, TSH3, ADDONUAPLUS #### [place] [address] [place] #### SPE, KARUNA,URINE, BIGG, HBCAB, ALDOLASE, RPR W RFX, HCV RX PCR, UPE RAND, HBSAB, QUANT TB, CHROMATIN, HBSAG #### [facility] , MCHC Auto (RBC) [Mass/Vol]Or dered By: Gordy Matthew on 03-09-2024 MCHC (RBC) [Mass/Vol] 33.0 g/dL 32.0-35.0 [facility] MCV [Entitic volume] by Auto mated countOrdered By: Gordy Matthew on 03-09-2024 MCV (RBC) [Entitic vol] 87.3 fL Normal 80-100 [facility] Comment on above: Performed By: #### C RP, CK, CBC, CMP, T4F, ESR, TSH3, ADDONUAPLUS #### [facility] [address] [place] [address] #### SPE, KARUNA,URINE, BIGG, HBCAB, ALDOLASE, RPR W RFX, HCV RX PCR, UPE RAND, HBSAB, QUANT TB, CHROMATIN, HBSAG #### [facility] , Mucus [Presence] in Urine by AutomatedOrdered By: Gordy Farooqrow on 03-09-2024 Mucus Auto Ql (U) Rare [LPF] [facility] Neutrophils [#/volume] in Bl ood by Automated countOrdered By: Gordy Matthew on 03-09-2024 Neutrophils (Bld) [#/Vol] 7.5 10*3/uL Normal 1.8-7.7 [facility] Comment on above: Performed By: #### C RP, CK, CBC, CMP, T4F, ESR, TSH3, ADDONUAPLUS #### [facility] [address] [place] [address] [place] #### SPE, KARUNA,URINE, BIGG, HBCAB, ALDOLASE, RPR W RFX, HCV RX PCR, UPE RAND, HBSAB, QUANT TB, CHROMATIN, HBSAG #### [facility] , Nitrite Test strip Ql (U)Ord ered By: Gordy Farooqrow on 03-09-2024 Nitrite Ql (U) Negative Negative [facility] No Panel InformationOrdered By: Gordy Matthew on 03-09-2024 Estimated GFR (CKD-EPI) > 60.0 mL/Min [facility] Creatinine Clearance (Chem N/A [facility] Nucleated erythrocytes [Pres ence] in Blood by Automated countOrdered By: Gordy Matthew on 03-09-2024 Nucleated RBC Auto Ql (Bld) 0.1 /100{WBC} 0-0.5 [facility] Platelet mean volume [Entiti c volume] in Blood by Automated countOrdered By: Gordy Matthew on 03-09-2024 Platelet mean volume (Bld) [Entitic vol] 8.3 fL Normal 6.3-10.7 [facility] Comment on above: Performed By: #### C RP, CK, CBC, CMP, T4F, ESR, TSH3, ADDONUAPLUS #### [facility] [address] [place] [address] #### SPE, KARUNA,URINE, BIGG, HBCAB, ALDOLASE, RPR W RFX, HCV RX PCR, UPE RAND, HBSAB, QUANT TB, CHROMATIN, HBSAG #### [facility] , Platelets [#/volume] in Bloo d by Automated countOrdered By: Gordy Matthew on 03-09-2024 Platelets (Bld) [#/Vol] 332 10*3/uL Normal 150-450 [facility] Comment on above: Performed By: #### C RP, CK, CBC, CMP, T4F, ESR, TSH3, ADDONUAPLUS #### [facility] [address] [place] [address] [place] #### SPE, KARUNA,URINE, BIGG, HBCAB, ALDOLASE, RPR W RFX, HCV RX PCR, UPE RAND, HBSAB, QUANT TB, CHROMATIN, HBSAG #### [facility] , Potassium [Moles/volume] in Serum or PlasmaOrdered By: Gordy Matthew on 03-09-2024 Potassium [Moles/Vol] 4.2 mmol/L Normal 3.5-5.1 [facility] Comment on above: Performed By: #### C RP, CK, CBC, CMP, T4F, ESR, TSH3, ADDONUAPLUS #### [facility] [address] [place] [address] [place] #### SPE, KARUNA,URINE, BIGG, HBCAB, ALDOLASE, RPR W RFX, HCV RX PCR, UPE RAND, HBSAB, QUANT TB, CHROMATIN, HBSAG #### [facility] , Protein Electro, Random Urin krysten 03-09-2024 Albumin, Urine 15.5 % Normal . [facility] Comment on above: Performed By: #### C RP, CK, CBC, CMP, T4F, ESR, TSH3, ADDONUAPLUS #### [address] #### SPE, KARUNA,URINE, BIGG, HBCAB, ALDOLASE, RPR W RFX, HCV RX PCR, UPE RAND, HBSAB, QUANT TB, CHROMATIN, HBSAG #### [facility] , Diimk-4-Hneczztm, Urine 5.6 % Normal . [facility] Comment on above: Performed By: #### C RP, CK, CBC, CMP, T4F, ESR, TSH3, ADDONUAPLUS #### [address] #### SPE, KARUNA,URINE, BIGG, HBCAB, ALDOLASE, RPR W RFX, HCV RX PCR, UPE RAND, HBSAB, QUANT TB, CHROMATIN, HBSAG #### [facility] , Baskx-7-Vvvzsuwu, Urine 21.4 % Normal . [facility] Comment on above: Performed By: #### C RP, CK, CBC, CMP, T4F, ESR, TSH3, ADDONUAPLUS #### [address] #### SPE, KARUNA,URINE, BIGG, HBCAB, ALDOLASE, RPR W RFX, HCV RX PCR, UPE RAND, HBSAB, QUANT TB, CHROMATIN, HBSAG #### [facility] , Beta Globulin, Urine 31.2 % Normal . [facility] Comment on above: Performed By: #### C RP, CK, CBC, CMP, T4F, ESR, TSH3, ADDONUAPLUS #### [address] #### SPE, KARUNA,URINE, BIGG, HBCAB, ALDOLASE, RPR W RFX, HCV RX PCR, UPE RAND, HBSAB, QUANT TB, CHROMATIN, HBSAG #### [facility] , Gamma Globulin, Urine 26.4 % Normal . [facility] Comment on above: Performed By: #### C RP, CK, CBC, CMP, T4F, ESR, TSH3, ADDONUAPLUS #### [address] #### SPE, KARUNA,URINE, BIGG, HBCAB, ALDOLASE, RPR W RFX, HCV RX PCR, UPE RAND, HBSAB, QUANT TB, CHROMATIN, HBSAG #### [facility] , M-Leonid % Not Observed Normal Not Observed [facility] Comment on above: Performed By: #### C RP, CK, CBC, CMP, T4F, ESR, TSH3, ADDONUAPLUS #### [address] #### SPE, KARUNA,URINE, BIGG, HBCAB, ALDOLASE, RPR W RFX, HCV RX PCR, UPE RAND, HBSAB, QUANT TB, CHROMATIN, HBSAG #### [facility] , Please Note: Comment Normal . [facility] Comment on above: Result Comment: Prot ein electrophoresis scan will follow via computer, mail, or marketing operations specialist delivery. PERFORMED BY: [place] [address] PATHOLOGIST ASSISTED LIVING CARE MANAGER JOCELYN EDGE M.D. Performed By: #### C RP, CK, CBC, CMP, T4F, ESR, TSH3, ADDONUAPLUS #### [place] [address] [place] #### SPE, KARUNA,URINE, BIGG, HBCAB, ALDOLASE, RPR W RFX, HCV RX PCR, UPE RAND, HBSAB, QUANT TB, CHROMATIN, HBSAG #### [facility] , Protein (U) [Mass/Vol] 4.1 mg/dL Normal Not Estab. [facility] Comment on above: Performed By: #### C RP, CK, CBC, CMP, T4F, ESR, TSH3, ADDONUAPLUS #### [address] #### SPE, KARUNA,URINE, BIGG, HBCAB, ALDOLASE, RPR W RFX, HCV RX PCR, UPE RAND, HBSAB, QUANT TB, CHROMATIN, HBSAG #### [facility] , Protein Electrophoresis, Ser umon 03-09-2024 Albumin [Mass/Vol] 3.8 g/dL Normal 2.9-4.4 [facility] Comment on above: Performed By: #### C RP, CK, CBC, CMP, T4F, ESR, TSH3, ADDONUAPLUS #### [address] #### SPE, KARUNA,URINE, BIGG, HBCAB, ALDOLASE, RPR W RFX, HCV RX PCR, UPE RAND, HBSAB, QUANT TB, CHROMATIN, HBSAG #### [facility] , Albumin/Globulin [Mass ratio] 1.2 {ratio} Normal 0.7-1.7 [facility] Comment on above: Performed By: #### C RP, CK, CBC, CMP, T4F, ESR, TSH3, ADDONUAPLUS #### [place] [address] [place] #### SPE, KARUNA,URINE, BIGG, HBCAB, ALDOLASE, RPR W RFX, HCV RX PCR, UPE RAND, HBSAB, QUANT TB, CHROMATIN, HBSAG #### [facility] , Qqyze-1-Vywhfumm 0.2 g/dL Normal 0.0-0.4 [facility] Comment on above: Performed By: #### C RP, CK, CBC, CMP, T4F, ESR, TSH3, ADDONUAPLUS #### [place] [address] [place] #### SPE, KARUNA,URINE, BIGG, HBCAB, ALDOLASE, RPR W RFX, HCV RX PCR, UPE RAND, HBSAB, QUANT TB, CHROMATIN, HBSAG #### [facility] , Upowi-0-Xlehovxf 0.7 g/dL Normal 0.4-1.0 [facility] Comment on above: Performed By: #### C RP, CK, CBC, CMP, T4F, ESR, TSH3, ADDONUAPLUS #### [address] #### SPE, KARUNA,URINE, BIGG, HBCAB, ALDOLASE, RPR W RFX, HCV RX PCR, UPE RAND, HBSAB, QUANT TB, CHROMATIN, HBSAG #### [facility] , Beta Globulin 1.1 g/dL Normal 0.7-1.3 [facility] Comment on above: Performed By: #### C RP, CK, CBC, CMP, T4F, ESR, TSH3, ADDONUAPLUS #### [address] #### SPE, KARUNA,URINE, BIGG, HBCAB, ALDOLASE, RPR W RFX, HCV RX PCR, UPE RAND, HBSAB, QUANT TB, CHROMATIN, HBSAG #### [facility] , Gamma Globulin 1.3 g/dL Normal 0.4-1.8 [facility] Comment on above: Performed By: #### C RP, CK, CBC, CMP, T4F, ESR, TSH3, ADDONUAPLUS #### [place] [address] [place] #### SPE, KARUNA,URINE, BIGG, HBCAB, ALDOLASE, RPR W RFX, HCV RX PCR, UPE RAND, HBSAB, QUANT TB, CHROMATIN, HBSAG #### [facility] , Globulin (S) [Mass/Vol] 3.3 g/dL Normal 2.2-3.9 [facility] Comment on above: Performed By: #### C RP, CK, CBC, CMP, T4F, ESR, TSH3, ADDONUAPLUS #### [place] [address] [place] #### SPE, KARUNA,URINE, BIGG, HBCAB, ALDOLASE, RPR W RFX, HCV RX PCR, UPE RAND, HBSAB, QUANT TB, CHROMATIN, HBSAG #### [facility] , M-Leonid Not Observed Normal Not Observed [facility] Comment on above: Performed By: #### C RP, CK, CBC, CMP, T4F, ESR, TSH3, ADDONUAPLUS #### [place] [address] [place] #### SPE, KARUNA,URINE, BIGG, HBCAB, ALDOLASE, RPR W RFX, HCV RX PCR, UPE RAND, HBSAB, QUANT TB, CHROMATIN, HBSAG #### [facility] , SPE-Note Comment Normal . [facility] Comment on above: Result Comment: Prot ein electrophoresis scan will follow via computer, mail, or marketing operations specialist delivery. Performed at: [facility] [place] [id number] Creative Services Designer: Jasiel Key PhD, Phone: [phone] Performed By: #### C RP, CK, CBC, CMP, T4F, ESR, TSH3, ADDONUAPLUS #### [place] [address] [place] #### SPE, KARUNA,URINE, BIGG, HBCAB, ALDOLASE, RPR W RFX, HCV RX PCR, UPE RAND, HBSAB, QUANT TB, CHROMATIN, HBSAG #### [facility] , Protein Test strip (U) [Mass /Vol]Ordered By: Gordy Matthew on 03-09-2024 Protein (U) [Mass/Vol] Negative Negative [facility] Protein [Mass/volume] in Ser um or PlasmaOrdered By: Gordy Matthew on 03-09-2024 Protein [Mass/Vol] 7.1 g/dL Normal 6.0-8.5 [facility] Comment on above: Performed By: #### C RP, CK, CBC, CMP, T4F, ESR, TSH3, ADDONUAPLUS #### [address] #### SPE, KARUNA,URINE, BIGG, HBCAB, ALDOLASE, RPR W RFX, HCV RX PCR, UPE RAND, HBSAB, QUANT TB, CHROMATIN, HBSAG #### [facility] , QuantiFERON TB Goldon 2023 QFTB Criteria Comment Normal . [facility] Comment on above: [...] CMP, T4F, ESR, TSH3, ADDONUAPLUS #### [address] #### SPE, KARUNA,URINE, BIGG, HBCAB, ALDOLASE, RPR W RFX, HCV RX PCR, UPE RAND, HBSAB, QUANT TB, CHROMATIN, HBSAG #### [facility] , Quant TB Ag Value 0.[address] [facility] Comment on above: Performed By: #### C RP, CK, CBC, CMP, T4F, ESR, TSH3, ADDONUAPLUS #### [address] #### SPE, KARUNA,URINE, BIGG, HBCAB, ALDOLASE, RPR W RFX, HCV RX PCR, UPE RAND, HBSAB, QUANT TB, CHROMATIN, HBSAG #### [facility] , Quant TB Gold Plus Negative Normal Negative [facility] Comment on above: [...] interferon gamma. Chemiluminescence immunoassay methodology Performed at: [facility] [email or web address] [id number] Creative Services Designer: Jasiel Key PhD, Phone: [phone] PERFORMED BY: [place] [address] PATHOLOGIST ASSISTED LIVING CARE MANAGER JOCELYN EDGE M.D. Performed By: #### C RP, CK, CBC, CMP, T4F, ESR, TSH3, ADDONUAPLUS #### [address] #### SPE, KARUNA,URINE, BIGG, HBCAB, ALDOLASE, RPR W RFX, HCV RX PCR, UPE RAND, HBSAB, QUANT TB, CHROMATIN, HBSAG #### [facility] , Quant TB2 Ag Value 0.00 Normal . [facility] Comment on above: Performed By: #### C RP, CK, CBC, CMP, T4F, ESR, TSH3, ADDONUAPLUS #### [address] #### SPE, KARUNA,URINE, BIGG, HBCAB, ALDOLASE, RPR W RFX, HCV RX PCR, UPE RAND, HBSAB, QUANT TB, CHROMATIN, HBSAG #### [facility] , Quantiferon Nil Value 0.00 Normal . [facility] Comment on above: Performed By: #### C RP, CK, CBC, CMP, T4F, ESR, TSH3, ADDONUAPLUS #### [place] [address] [place] #### SPE, KARUNA,URINE, BIGG, HBCAB, ALDOLASE, RPR W RFX, HCV RX PCR, UPE RAND, HBSAB, QUANT TB, CHROMATIN, HBSAG #### [facility] , Quantiferon TB Mitogen >10.00 Normal . [facility] Comment on above: Performed By: #### C RP, CK, CBC, CMP, T4F, ESR, TSH3, ADDONUAPLUS #### [address] #### SPE, KARUNA,URINE, BIGG, HBCAB, ALDOLASE, RPR W RFX, HCV RX PCR, UPE RAND, HBSAB, QUANT TB, CHROMATIN, HBSAG #### [facility] , RPR w/rfx to Quant TP Abson 03-09-2024 RPR, Rfx Quant RPR Non-Reactive Normal Non Reactive [facility] Comment on above: Result Comment: Perf ormed at: - [facility] [address] [id number] Creative Services Designer: Jasiel Key PhD, Phone: [phone] PERFORMED BY: [place] [address] PATHOLOGIST ASSISTED LIVING CARE MANAGER JOCELYN EDGE M.D. Performed By: #### C RP, CK, CBC, CMP, T4F, ESR, TSH3, ADDONUAPLUS #### [address] #### SPE, KARUNA,URINE, BIGG, HBCAB, ALDOLASE, RPR W RFX, HCV RX PCR, UPE RAND, HBSAB, QUANT TB, CHROMATIN, HBSAG #### [facility] , Serum globulin measurement b y calculation (mass/volume)Ordered By: Gordy Matthew on 03-09-2024 Globulin (S) [Mass/Vol] 2.9 g/dL Normal F [facility] Comment on above: Performed By: #### C RP, CK, CBC, CMP, T4F, ESR, TSH3, ADDONUAPLUS #### [address] #### SPE, KARUNA,URINE, BIGG, HBCAB, ALDOLASE, RPR W RFX, HCV RX PCR, UPE RAND, HBSAB, QUANT TB, CHROMATIN, HBSAG #### [facility] , Serum or plasma albumin/glob ulin mass ratioOrdered By: Gordy Matthew on 03-09-2024 Albumin/Globulin [Mass ratio] 1.4 {ratio} [facility] Comment on above: Performed By: #### C RP, CK, CBC, CMP, T4F, ESR, TSH3, ADDONUAPLUS #### [facility] [address] [place] [address] #### SPE, KARUNA,URINE, BIGG, HBCAB, ALDOLASE, RPR W RFX, HCV RX PCR, UPE RAND, HBSAB, QUANT TB, CHROMATIN, HBSAG #### [facility] , Serum or plasma anion gap de terminationOrdered By: Gordy Matthew on 03-09-2024 Anion gap [Moles/Vol] 9.8 mmol/L Normal 6.0-15.0 [facility] Comment on above: Performed By: #### C RP, CK, CBC, CMP, T4F, ESR, TSH3, ADDONUAPLUS #### [facility] [address] [place] [address] [place] #### SPE, KARUNA,URINE, BIGG, HBCAB, ALDOLASE, RPR W RFX, HCV RX PCR, UPE RAND, HBSAB, QUANT TB, CHROMATIN, HBSAG #### [facility] , Sodium [Moles/volume] in Ser um or PlasmaOrdered By: Gordy Matthew on 03-09-2024 Sodium [Moles/Vol] 139 mmol/L Normal 136-145 [facility] Comment on above: Performed By: #### C RP, CK, CBC, CMP, T4F, ESR, TSH3, ADDONUAPLUS #### [facility] [address] [place] [address] [place] #### SPE, KARUNA,URINE, BIGG, HBCAB, ALDOLASE, RPR W RFX, HCV RX PCR, UPE RAND, HBSAB, QUANT TB, CHROMATIN, HBSAG #### [facility] , Specific gravity Test strip (U) [Rel density]Ordered By: Gordy Matthew on 03-09-2024 Specific gravity (U) [Rel density] 1.013 1.001-1.030 [facility] Thyrotropin [Units/volume] i n Serum or PlasmaOrdered By: Gordy Matthew on 03-09-2024 TSH Qn 2.78 m[IU]/L Normal 0.45-5.33 [facility] Comment on above: Result Comment: PERF ORMED BY: [place] [address] PATHOLOGIST ASSISTED LIVING CARE MANAGER JOCELYN EDGE M.D. Performed By: #### C RP, CK, CBC, CMP, T4F, ESR, TSH3, ADDONUAPLUS #### [address] #### SPE, KARUNA,URINE, BIGG, HBCAB, ALDOLASE, RPR W RFX, HCV RX PCR, UPE RAND, HBSAB, QUANT TB, CHROMATIN, HBSAG #### [facility] , Thyroxine (T4) free [Mass/vo lume] in Serum or PlasmaOrdered By: Gordy Matthew on 03-09-2024 Free T4 [Mass/Vol] 0.78 ng/dL Normal 0.61-1.12 [facility] Comment on above: Performed By: #### C RP, CK, CBC, CMP, T4F, ESR, TSH3, ADDONUAPLUS #### [facility] [address] [place] [address] #### SPE, KARUNA,URINE, BIGG, HBCAB, ALDOLASE, RPR W RFX, HCV RX PCR, UPE RAND, HBSAB, QUANT TB, CHROMATIN, HBSAG #### [facility] , Urea nitrogen [Mass/volume] in Serum or PlasmaOrdered By: Gordy Matthew on 03-09-2024 Urea nitrogen [Mass/Vol] 15 mg/dL Normal 7-25 [facility] Comment on above: Performed By: #### C RP, CK, CBC, CMP, T4F, ESR, TSH3, ADDONUAPLUS #### [facility] [address] [place] [address] #### SPE, KARUNA,URINE, BIGG, HBCAB, ALDOLASE, RPR W RFX, HCV RX PCR, UPE RAND, HBSAB, QUANT TB, CHROMATIN, HBSAG #### [facility] , Urine appearanceOrdered By: Gordy Matthew on 03-09-2024 Appearance (U) Cloudy Critically abnormal Clear [facility] Comment on above: Order Comment: Name Collection Type:: Clean-Voided Midstream Performed By: #### C RP, CK, CBC, CMP, T4F, ESR, TSH3, ADDONUAPLUS #### [facility] [address] [place] [address] #### SPE, KARUNA,URINE, BIGG, HBCAB, ALDOLASE, RPR W RFX, HCV RX PCR, UPE RAND, HBSAB, QUANT TB, CHROMATIN, HBSAG #### [facility] , Urobilinogen Test strip (U) [Mass/Vol]Ordered By: Gordy Matthew on 03-09-2024 Urobilinogen (U) [Mass/Vol] Normal mg/dL Normal [facility] pH of Urine by Test stripOrd ered By: Gordy Matthew on 03-09-2024 pH (U) 7.0 [pH] Normal 5.0-9.0 [facility] Comment on above: Order Comment: Name Collection Type:: Clean-Voided Midstream Performed By: #### C RP, CK, CBC, CMP, T4F, ESR, TSH3, ADDONUAPLUS #### [facility] [address] [place] [address] #### SPE, KARUNA,URINE, BIGG, HBCAB, ALDOLASE, RPR W RFX, HCV RX PCR, UPE RAND, HBSAB, QUANT TB, CHROMATIN, HBSAG #### [facility] , COVID/FLU/RSV RT-PCRon 06-14 SARS-CoV-2 (COVID-19) RNA VIVEK+probe Ql (Unsp spec) Negative Contour Other COVID/FLU/RSV RT-PCR Negative [facility] Other COVID/FLU/RSV RT-PCR Positive [facility] Other Outside Colonoscopyon 2022 Outside Colonoscopy [id number] 0#1.00CD:127 [facility] Reminderson 10-02-2022 Reminders - From: Kisha Samuel LPN To: N - Clinical; Sent: 10/02/2022 08:43:18 EDT Show up: 08/31/2032 07:00:00 EDT Subject: colonoscopy recall Due Date/Time: 10/01/2032 07:00:00 EDT Reminder/Recall Patient is due for screening colonoscopy 10/01/2032. [facility] Consent for Procedure/Surger yon 09-11-2022 Consent for Procedure/Surgery [id number] #1.00CD:127 [facility] Facesheeton 09-11-2022 Facesheet [id number] #1.00CD:127 [facility] Pre-Certification Formon Pre-Certification Form [id number] 1#1.00CD:127 [facility] Ambulatory Visit Summaryon 0 09-10-2022 Ambulatory Visit [...] reflux disease) Osteoarthritis Seasonal allergic rhinitis Normal [facility] Physician Referralon 023 Physician Referral [id number] #1.00CD:127 Normal [facility] Follow-Upon 05-15-2022 Follow-Up [id number] Brie Eagle 1955 F Date Provider Department Center 05/15/2022 Piedad-TIMMY TINSLEY MP ORTHO MPORTHO Family History Problem Relation Age of Onset Diabetes Mother Heart disease Mother Arthritis Mother No Known Problems Father Family Status - Relation Status Age at Mother Father Level of Service:51313 CO OFFICE/OUTPATIENT ESTABLISHED LOW MDM 20-29 MIN Reason for Visit and Comments: Follow-up [394284] - Yearly follow up Normal [facility] XR DEXA BONE DENSITYon 04-28 XR [...] by: STEPHANIE RAYA Date: 2022-04-28 17:04 Normal [facility] MAMM SCREEN 3D ARCELIA CADon 04-23-2022 MAMM SCREEN 3D ARCELIA CAD Patient: BRIE EAGLE Exam Date: 04/23/2022 : 1955 Gender:F Ordering : DR ARETHA BREWSTER . Admission #: [id number] Family : Order #: [id number] CLICK HERE TO VIEW EXAM RADIOLOGY REPORT PROCEDURE: MAMMOGRAM SCREENING 3D BILATERAL CAD COMPARISON: MAMM SCREEN 3D ARCELIA CAD, 04/17/2021. INDICATIONS: Screening mammography Calculator Name NCI Breast Cancer Risk Assessment Tool 5 Year Breast Cancer Risk Not Reported. Lifetime Breast Cancer Risk Not Reported. Personal Breast Cancer No Personal Ovarian Cancer No Treatments None Family Cancers None LOCATION: The BREAST COMPOSITION: Scattered areas fibroglandular density. FINDINGS: [...] Raya MD on 04/23/2022 at 13:10 Normal [facility] NM STRESS/REST MULTIon 10-27 -2022 NM STRESS/REST MULTI Patient: BRIE EAGLE Exam Date: 04/10/2022 : 1955 Gender:F Ordering : DR ARETHA BREWSTER . Admission #: [id number] Family : Order #: [id number] CLICK HERE TO VIEW EXAM RADIOLOGY REPORT [...] M.D. on 04/10/2022 at 13:53 Normal The AMYLASEon 03-24-2022 Amylase [Catalytic activity/Vol] 51 U/L Normal 25-115 The Comment on above: Performed By: #### A MY, LIPA, CMADM, HSTROPN #### Laboratory [address] [place] [address] Dr. Christos Richardson CARDIAC MONA ADMITon 022 CK [Catalytic activity/Vol] 67 U/L Normal 26-192 [facility] Comment on above: Performed By: #### A MY, LIPA, CMADM, HSTROPN #### Laboratory [address] [address] [address] Christos Richardson CK.MB [Mass/Vol] 0.93 ng/mL Normal <=3.60 [facility] Comment on above: Performed By: #### A MY, LIPA, CMADM, HSTROPN #### Laboratory [address] [address] [address] Christos Richardson GAYATHRI 32 ng/mL Normal 9-82 [facility] Comment on above: Performed By: #### A MY, LIPA, CMADM, HSTROPN #### Laboratory [address] [place] [address] Dr. Christos Richardson CBC AUTO DIFFon 03-24-2022 BASO # 0.1 103/ul Normal 0.0-0.1 [facility] Comment on above: Performed By: #### C BC #### [address] [address]DrEstela Richardson Basophils/100 WBC (Bld) 0.7 % Normal 0.2-2.0 [facility] Comment on above: Performed By: #### C BC #### [address] [address]DrEstela Richardson EO # 0.1 103/ul Normal 0.0-0.7 [facility] Comment on above: Performed By: #### C BC #### [address]epyme[address] [address]DrEstela Richardson Eosinophils/100 WBC (Bld) 0.8 % Critically low 0.9-7.0 [facility] Comment on above: Performed By: #### C BC #### P[address]qdcqds[address] [address]DrEstela Richardson Erythrocyte distribution width (RBC) [Ratio] 13.4 % Normal 11.0-15.0 [facility] Comment on above: Performed By: #### C BC #### [address] [place], [place] [address]Dr. Christos Richardson Hematocrit (Bld) [Volume fraction] 40.9 % Normal 36.0-48.0 The Comment on above: Performed By: #### C BC #### [address] [address]Dr. Christos Richardson Hemoglobin (Bld) [Mass/Vol] 13.3 g/dL Normal 12.0-16.0 The Comment on above: Performed By: #### C BC #### [address] [address]Dr. Christos Richardson IG # 0.02 10e3/ul Normal 0.00-0.03 The Comment on above: Performed By: #### C BC #### R[address] [address]Dr. Christos Richardson IG % 0.3 % Normal 0.0-0.5 The Comment on above: Performed By: #### C BC #### [address]bdu[address] [address]Dr. Christos Richardson LYMPH # 2.3 103/ul Normal 1.2-3.8 The Comment on above: Performed By: #### C BC #### Y[address]keuf[address]so[address] [address]Dr. Christos Richardson Lymphocytes/100 WBC (Bld) 32.6 % Normal 20.5-60.0 The Comment on above: Performed By: #### C BC #### [address]flcwh[address]cpn[address] [address]DrEstela Richardson MANUAL DIFF REQ NO Normal [facility] Comment on above: Performed By: #### C BC #### [address] [address]Dr. Christos Richardson MCH (RBC) [Entitic mass] 29.2 pg Normal 26.7-34.0 The Comment on above: Performed By: #### C BC #### [address] [address]Dr. Christos Richardson MCHC (RBC) [Mass/Vol] 32.5 g/dL Normal 29.9-35.2 [facility] Comment on above: Performed By: #### C BC #### [address] [id number]. Christos Dylan MCV (RBC) [Entitic vol] 89.9 fL Normal 81.0-99.0 [facility] Comment on above: Performed By: #### C BC #### Mut[address] [place], [place] [address]Dr. Christos Richardson MONO # 1.0 103/ul Critically high 0.3-0.8 [facility] Comment on above: Performed By: #### C BC #### N[address] [place], [place] [address]Dr. Christos Richardson Monocytes/100 WBC (Bld) 14.2 % Critically high 1.7-12. 0 The Comment on above: Performed By: #### C BC #### Z[address] [place], [place] [address]Dr. Christos Richardson NEUT # 3.7 103/ul Normal 1.4-6.5 [facility] Comment on above: Performed By: #### C BC #### Q[address]we[address] [place], [place] [address]Dr. Christos Richardson Neutrophils/100 WBC (Bld) 51.4 % Normal 43.0-75.0 The Comment on above: Performed By: #### C BC #### Awmabbxivu[address] [place], [place] [address]Dr. Christos Richardson Platelet mean volume (Bld) [Entitic vol] 9.7 fL Normal 9.5-13.5 The Comment on above: Performed By: #### C BC #### Rsuowses[address] [place], [place] [address]Dr. Christos Richardson PLT 271 103/ul Normal 150-450 The Comment on above: Performed By: #### C BC #### W[address] [place], [place] [address]DrEstela Richardson RBC 4.55 106/ul Normal 4.20-5.40 The Comment on above: Performed By: #### C BC #### [address]bu[address] [address]Dr. Christos Richardson WBC 7.1 103/ul Normal 4.0-11.0 The Comment on above: Performed By: #### C BC #### [address] [address]DrEstela Christos Richardson LIPASEon 03-24-2022 Lipase [Catalytic activity/Vol] 104.0 U/L Normal 73.0-393.0 [facility] Comment on above: Performed By: #### A MY, LIPA, CMADM, HSTROPN #### Laboratory [address] [address] [address] Christos Richardson TROPONIN, HIGH SENSITIVITYon 03-24-2022 HSTROP 6.6 pg/mL Normal 4.0-51.3 The Comment on above: Result Comment: CUT- OFF POINTS HAVE BEEN ESTABLISHED BASED ON THE FOURTH UNIVERSAL DEFINITIONS OF MYOCARDIAL INFARCTION. THE UPPER REFERENCE LIMIT (URL) OF TROPONIN, DEFINED THE 99TH PERCENTILE OF cTnI DISTRIBUTION IN A REFERENCE POPULATION, HAS BEEN CONFIRMED THE DECISION THRESHOLD FOR HI DIAGNOSIS. Performed By: #### H STROPN #### [address] [address]Dr. Christos Dylan HSTROP 6.3 pg/mL Normal 4.0-51.3 The Comment on above: Result Comment: CUT- OFF POINTS HAVE BEEN ESTABLISHED BASED ON THE FOURTH UNIVERSAL DEFINITIONS OF MYOCARDIAL INFARCTION. THE UPPER REFERENCE LIMIT (URL) OF TROPONIN, DEFINED THE 99TH PERCENTILE OF cTnI DISTRIBUTION IN A REFERENCE POPULATION, HAS BEEN CONFIRMED THE DECISION THRESHOLD FOR HI DIAGNOSIS. Performed By: #### A MY, LIPA, CMADM, HSTROPN #### Laboratory [address] [address] [address] Christos Richardson XR CHEST 1 Von [...] ULISES CALDERON Date: 2022-03-24 13:53 Normal The INSULINon 01-09-2022 Insulin 10.4 uIU/mL Normal 2.6-24.9 [facility] Comment on above: Performed By: #### I NSULIN #### Laboratory [address] [place] [address] Dr. Christos Richardson CBC AUTO DIFFon 01-08-2022 BASO # 0.1 103/ul Normal 0.0-0.1 [facility] Comment on above: Performed By: #### C BC #### Laboratory [address] [place] [address] Dr. Christos Richardson Basophils/100 WBC (Bld) 0.8 % Normal 0.2-2.0 [facility] Comment on above: Performed By: #### C BC #### Laboratory [address] [place] [address] Dr. Christos Richardson EO # 0.1 103/ul Normal 0.0-0.7 [facility] Comment on above: Performed By: #### C BC #### Laboratory [address] [place] [address] Dr. Christos Richardson Eosinophils/100 WBC (Bld) 1.5 % Normal 0.9-7.0 [facility] Comment on above: Performed By: #### C BC #### Laboratory [address] [place] [address] Dr. Christos Richardson Erythrocyte distribution width (RBC) [Ratio] 13.6 % Normal 11.0-15.0 [facility] Comment on above: Performed By: #### C BC #### Laboratory [address] [place] [address] Dr. Christos Richardson Hematocrit (Bld) [Volume fraction] 40.4 % Normal 36.0-48.0 [facility] Comment on above: Performed By: #### C BC #### Laboratory [address] [place] [address] Dr. Christos Richardson Hemoglobin (Bld) [Mass/Vol] 12.9 g/dL Normal 12.0-16.0 [facility] Comment on above: Performed By: #### C BC #### Laboratory [address] [place] [address] Dr. Christos Richardson IG # 0.01 10e3/ul Normal 0.00-0.03 [facility] Comment on above: Performed By: #### C BC #### Laboratory [address] [place] [address] Dr. Christos Richardson IG % 0.2 % Normal 0.0-0.5 [facility] Comment on above: Performed By: #### C BC #### Laboratory [address] [place] [address] Dr. Christos Richardson LYMPH # 2.4 103/ul Normal 1.2-3.8 [facility] Comment on above: Performed By: #### C BC #### Laboratory [address] [place] [address] Dr. Christos Richardson Lymphocytes/100 WBC (Bld) 39.7 % Normal 20.5-60.0 [facility] Comment on above: Performed By: #### C BC #### Laboratory [address] [place] [address] Dr. Christos Richardson MANUAL DIFF REQ NO Normal [facility] Comment on above: Performed By: #### C BC #### Laboratory [address] [place] [address] Dr. Christos Richardson MCH (RBC) [Entitic mass] 29.0 pg Normal 26.7-34.0 [facility] Comment on above: Performed By: #### C BC #### Laboratory [address] [place] [address] Dr. Christos Richardson MCHC (RBC) [Mass/Vol] 31.9 g/dL Normal 29.9-35.2 [facility] Comment on above: Performed By: #### C BC #### Laboratory [address] [address] [address] Christos Richardson MCV (RBC) [Entitic vol] 90.8 fL Normal 81.0-99.0 [facility] Comment on above: Performed By: #### C BC #### Laboratory [address] [address] [address] Christos Richardson MONO # 0.8 103/ul Normal 0.3-0.8 [facility] Comment on above: Performed By: #### C BC #### Laboratory [address] [place] [address] Dr. Christos Richardson Monocytes/100 WBC (Bld) 13.5 % Critically high 1.7-12. 0 [facility] Comment on above: Performed By: #### C BC #### Laboratory [address] [place] [address] Dr. Christos Richardson NEUT # 2.7 103/ul Normal 1.4-6.5 [facility] Comment on above: Performed By: #### C BC #### Laboratory [address] [place] [address] Dr. Christos Richardson Neutrophils/100 WBC (Bld) 44.3 % Normal 43.0-75.0 [facility] Comment on above: Performed By: #### C BC #### Laboratory [address] [place] [address] Dr. Christos Richardson Platelet mean volume (Bld) [Entitic vol] 10.4 fL Normal 9.5-13.5 [facility] Comment on above: Performed By: #### C BC #### Laboratory [address] [place] [address] Dr. Christos Richardson PLT 287 103/ul Normal 150-450 [facility] Comment on above: Performed By: #### C BC #### Laboratory [address] [place] [address] Dr. Christos Richardson RBC 4.45 106/ul Normal 4.20-5.40 [facility] Comment on above: Performed By: #### C BC #### Laboratory [address] [address] [address] Christos Richardson WBC 6.1 103/ul Normal 4.0-11.0 [facility] Comment on above: Performed By: #### C BC #### Laboratory [address] [address] [address] Christos Richardson FREE THYROXINE INDEX T7on FTI 2.00 Normal 1.30-4.50 [facility] Comment on above: Performed By: #### C MP, T7, LIPID, TSH #### [address] [address]Dr. Christos Richardson T3U 35.0 % Normal 30.0-39.0 [facility] Comment on above: Performed By: #### C MP, T7, LIPID, TSH #### [address] [address]DrEstela Richardson T4 [Mass/Vol] 5.70 ug/dL Normal 4.80-13.90 [facility] Comment on above: Performed By: #### C MP, T7, LIPID, TSH #### [address] [address]DrEstela Richardson GLYCOHEMOGLOBIN A1Con 2021 ADA RECOMMENDATION SEE BELOW Normal [facility] Comment on above: Result Comment: ADA RECOMMENDED LIMIT 4.0 - 6.0 ADA THERAPEUTIC TARGET < 7.0 ACTION SUGGESTED > 7.0 Performed By: #### A 1C #### [address] [address]Dr. Christos Richardson Glucose [Mass/Vol] 114 mg/dL Normal [facility] Comment on above: Performed By: #### A 1C #### [address] [address]Dr. Christos Richardson HbA1c (Bld) [Mass fraction] 5.6 % Normal 4.5-6.2 [facility] Comment on above: Performed By: #### A 1C #### [address] [address]Dr. Christos Richardson IRONon 01-08-2022 Iron [Mass/Vol] 100.0 ug/dL Normal 50.0-170.0 [facility] Comment on above: Performed By: #### I BLANCO #### [address] [address]Dr. Christos Richardson LIPID PROFILEon 01-08-2022 CHOL-HDL RATIO NORM SEE BELOW Normal [facility] Comment on above: Result Comment: 3.3 - 4.4 LOW RISK 4.4 - 7.1 AVERAGE RISK 7.1 - 11.0 MODERATE RISK >11.0 HIGH RISK Performed By: #### C MP, T7, LIPID, TSH #### [address] [address]Dr. Christos Richardson Cholesterol [Mass/Vol] 187 mg/dL Normal <=200 [facility] Comment on above: Performed By: #### C MP, T7, LIPID, TSH #### [address] [address]Dr. Christos Richardson Cholesterol in HDL [Mass/Vol] 63 mg/dL Critically high 40-60 [facility] Comment on above: Performed By: #### C MP, T7, LIPID, TSH #### [address]ne[address] [address]Dr. Christos Richardson Cholesterol in LDL [Mass/Vol] 110.8 mg/dL Normal [facility] Comment on above: Performed By: #### C MP, T7, LIPID, TSH #### [address] [id number]. Christos Richardson Cholesterol.total/Kylee sterol in HDL [Mass ratio] 3.0 {ratio} Normal [facility] Comment on above: Performed By: #### C MP, T7, LIPID, TSH #### [address]or[address] [address]Dr. Christos Richardson HDL NORMAL > or = 60 mg/dl - LOW CARDIOVASCULAR RISK <40 mg/dl - HIGH CARDIOVASCULAR RISK Normal [facility] Comment on above: Performed By: #### C MP, T7, LIPID, TSH #### [address] [id number]. Christos Richardson LDL CALC NORMAL SEE BELOW Normal [facility] Comment on above: Result Comment: <100 mg/dl OPTIMAL 100 - 129 mg/dl NEAR OR ABOVE OPTIMAL 130 - 159 mg/dl BORDERLINE HIGH 160 - 189 mg/dl HIGH >190 mg/dl VERY HIGH Performed By: #### C MP, T7, LIPID, TSH #### [address] [address]Dr. Christos Richardson Triglyceride [Mass/Vol] 66 mg/dL Normal <=150 T [facility] Comment on above: Performed By: #### C MP, T7, LIPID, TSH #### [address]xow[address] [address]Dr. Christos Richardson VLDL CALC 13.2 mg/dL Normal [facility] Comment on above: Performed By: #### C MP, T7, LIPID, TSH #### E[address] [address]Dr. Christos Richardson PROF 14(COMP METB)on 022 Albumin [Mass/Vol] 3.4 g/dL Normal 3.4-5.0 [facility] Comment on above: Performed By: #### C MP, T7, LIPID, TSH #### Hgzxiupvzg[address] [place] [id number]. Christos Richardson Albumin/Globulin [Mass ratio] 0.9 {ratio} Normal [facility] Comment on above: Performed By: #### C MP, T7, LIPID, TSH #### V[address]lszqfat[address] [place] [id number]. Christos Richardson ALP [Catalytic activity/Vol] 79 U/L Normal 46-116 The Comment on above: Performed By: #### C MP, T7, LIPID, TSH #### C[address]qoe[address] [address]Dr. Christos Richardson ALT [Catalytic activity/Vol] 22 U/L Normal 14-59 [facility] Comment on above: Performed By: #### C MP, T7, LIPID, TSH #### Ixzopoubvp[address] [place] [address]Dr. Christos Richardson Anion gap [Moles/Vol] 11.5 mmol/L Normal Th e Comment on above: Performed By: #### C MP, T7, LIPID, TSH #### Bumdiftoap[address] [address]Dr. Christos Richardson AST [Catalytic activity/Vol] 16 U/L Normal 15-37 [facility] Comment on above: Performed By: #### C MP, T7, LIPID, TSH #### Fwiupiosal[address] [address]Dr. Christos Richardson Bilirubin [Mass/Vol] 0.3 mg/dL Normal 0.2-1.0 [facility] Comment on above: Performed By: #### C MP, T7, LIPID, TSH #### Z[address] [place], [place] [address]Dr. Devoramarissa Richardson Calcium [Mass/Vol] 9.1 mg/dL Normal 8.5-10.1 [facility] Comment on above: Performed By: #### C MP, T7, LIPID, TSH #### Rm[address] [place], [place] [address]Dr. Devoramarissa Richardson Chloride [Moles/Vol] 106 mmol/L Normal 98-107 [facility] Comment on above: Performed By: #### C MP, T7, LIPID, TSH #### Li[address]kurdsm[address] [address]Dr. Christos Richardson CO2 [Moles/Vol] 27.7 mmol/L Normal 21.0-32.0 [facility] Comment on above: Performed By: #### C MP, T7, LIPID, TSH #### Boovothsbf[address] [place] [address]Dr. Christos Richardson Creatinine [Mass/Vol] 0.75 mg/dL Normal 0.55-1.02 [facility] Comment on above: Performed By: #### C MP, T7, LIPID, TSH #### [address]ts[address] [place], [place] [address]Dr. Christos Richardson EGFR-AF PALAUAN >60 Normal >=60 [facility] Comment on above: Performed By: #### C MP, T7, LIPID, TSH #### A[address]loqto[address] [address]Dr. Christos Richardson EGFR-NON AF PALAUAN >60 Normal >=60 The Comment on above: Performed By: #### C MP, T7, LIPID, TSH #### Sxsixbnype[address] [address]Dr. Christos Richardson Globulin (S) [Mass/Vol] 3.9 g/dL Normal T [facility] Comment on above: Performed By: #### C MP, T7, LIPID, TSH #### D[address]iewbqbup[address] [address]Dr. Christos Richardson Glucose [Mass/Vol] 95 mg/dL Normal 74-106 [facility] Comment on above: Performed By: #### C MP, T7, LIPID, TSH #### E[address]iozih[address] [place] [address]Dr. Christos Richardson Potassium [Moles/Vol] 4.2 mmol/L Normal 3.5-5.1 The Comment on above: Performed By: #### C MP, T7, LIPID, TSH #### Qif[address]yerf[address] [place] [address]Dr. Christos Richardson Protein [Mass/Vol] 7.3 g/dL Normal 6.4-8.2 [facility] Comment on above: Performed By: #### C MP, T7, LIPID, TSH #### S[address]jm[address]amiqk[address] [place] [address]Dr. Christos Richardson Sodium [Moles/Vol] 141 mmol/L Normal 136-145 [facility] Comment on above: Performed By: #### C MP, T7, LIPID, TSH #### [address] [place] [address]Dr. Christos Richardson Urea nitrogen [Mass/Vol] 15.0 mg/dL Normal 7.0-18.0 The Comment on above: Performed By: #### C MP, T7, LIPID, TSH #### T[address]jcx37[address] [place], [place] [address]Wu. Christos Richardson Urea nitrogen/Creatinine [Mass ratio] 20.0 mg/mg Normal [facility] Comment on above: Performed By: #### C MP, T7, LIPID, TSH #### Q[address]aks[address] [place], [place] [address]Km. Christos Richardson TSHon 01-08-2022 TSH 3.880 uIU/mL Critically high 0.358-3.740 [facility] Comment on above: Performed By: #### C MP, T7, LIPID, TSH #### Cqvpr[address]wkgr59[address] [place], [place] [address]Dh. Christos Richardson HIP LEFT 1 OR 2 VWS WITH PEL VISon 05-29-2021 HIP LEFT 1 OR 2 VWS WITH PELVIS [facility] Department of Radiology [address] [place] [id number] Patient Name: BRIE EAGLE : 1955 [...] prosthesis. Electronically signed: Eder Crowder. Transcribed by: [email or web address], User Resident: EDER CROWDER Electronically Signed by: EDER CROWDER @ 05/30/2021 12:27 PM I personally read this/these film(s) with this resident Normal [facility] Comment on above: Order Comment: evalu ate Vital Signs Date Time Vital Sign Value Performing Clinician Facility 09-20-2024 12:50-0400 Body height 161.3 cm Brian James MD [facility] 09-20-2024 12:50-0400 Body mass index (BMI) [Ratio] 30.69 kg/m2 Brian [facility] 09-20-2024 12:50-0400 Body weight 79.83 kg Brian James MD [facility] 06-14-2023 09:30-0500 Body height 162.56 cm Sarah Sargent Other [facility] Other 06-14-2023 09:30-0500 Body mass index (BMI) [Ratio] 30.65 kg/m2 Sarah Sargent Other [facility] Other 06-14-2023 09:30-0500 Body temperature 98.8 [degF] Sarah Sargent Other [facility] Other 06-14-2023 09:30-0500 Body weight 81.01 kg Sarah Sargent Other [facility] Other 06-14-2023 09:30-0500 Diastolic blood pressure 67 mm[Hg] Sarah Sargent Other [facility] Other 06-14-2023 09:30-0500 Respiratory rate 16 /min Sarah Sargent Other [facility] Other 06-14-2023 09:30-0500 SaO2% (BldA) [Mass fraction] 96 % Sarah Sargent Other [facility] Other 06-14-2023 09:30-0500 Systolic blood pressure 129 mm[Hg] Sarah Sargent Other [facility] Other 09-10-2022 15:17-0400 Blood Pressure Location [facility] 09-10-2022 15:17-0400 Diastolic blood pressure 64 mm[Hg] [facility] 09-10-2022 15:17-0400 Heart rate 72 /min [facility] 09-10-2022 15:17-0400 Respiratory rate 16 /min [facility] 09-10-2022 15:17-0400 Systolic blood pressure 138 mm[Hg] [facility] 11-12-2021 17:50-0400 Body height 162.56 cm Olivia Dean Other [facility] Other 11-12-2021 17:50-0400 Body mass index (BMI) [Ratio] 27.46 kg/m2 Olivia Dean Other [facility] Other 11-12-2021 17:50-0400 Body temperature 97.8 [degF] Olivia Dean Other [facility] Other 11-12-2021 17:50-0400 Body weight 72.58 kg Olivia Dean Other [facility] Other 11-12-2021 17:50-0400 Diastolic blood pressure 59 mm[Hg] Olivia Dean Other [facility] Other 11-12-2021 17:50-0400 Respiratory rate 16 /min Olivia Dean Other [facility] Other 11-12-2021 17:50-0400 SaO2% (BldA) [Mass fraction] 98 % Olivia Dean Other [facility] Other 11-12-2021 17:50-0400 Systolic blood pressure 130 mm[Hg] Olivia Dean Other Contour Other Encounters Encounter Date Encounter Type Care Provider Facility Start: 01-19-2025 End: 01-19-2025 ambulatory Aretha Santacruz [facility] Work Phone: Start: 01-19-2025 End: 01-19-2025 Departed Referred Aretha Santacruz MD -[facility] Start: 01-09-2025 End: 01-09-2025 ambulatory Aretha Santacruz [facility] Work Phone: Start: 01-09-2025 End: 01-09-2025 Departed Referred Aretha Santacruz MD -[facility] Start: 09-20-2024 End: 09-20-2024 Office outpatient new 20 minutes Brian James MD Work Phone: [facility] Comment on above: Aftercare following left hip joint replacement surgery (Primary Dx) Start: 09-20-2024 End: 09-20-2024 ambulatory BRIAN JAMES [facility] Start: 08-29-2024 End: 08-29-2024 ambulatory EUGENIO H TIMMIS Not Available Start: 03-09-2024 End: 03-09-2024 Patient encounter procedure MD Aretha Brewster Work Phone: [facility] [address] Work Phone: Start: 03-09-2024 End: 03-09-2024 ambulatory MD Aretha Brewster Work Phone: [facility] Work Phone: Start: 01-27-2024 End: 01-27-2024 ambulatory EUGENIO H TIMMIS Not Available Start: 01-04-2024 End: 01-04-2024 ambulatory EUGENIO H TIMMIS Not Available Start: 09-01-2023 End: 09-01-2023 ambulatory EUGENIO H TIMMIS Not Available Start: 06-14-2023 End: 06-14-2023 ambulatory Sarah Sargent Other Contour Other Start: 06-14-2023 Office outpatient vi sit 25 minutes Sarah Sargent [facility] Start: 10-01-2022 End: 10-02-[address] LUI GAMINO . Facility:[facility] Start: 09-10-2022 End: 09-11-2022 ambulatory Lui GAMINO Facility:[facility] Start: 09-10-2022 End: 09-10-2022 Patient encounter procedure Lui GAMINO General Surgery [facility] Start: 08-06-2022 ambulatory Lui GAMINO Facility: [facility] Start: 06-23-[address] LUI GAMINO . Facil ity:[facility] Start: 05-15-2022 End: 05-16-2022 [facility]ulatory [facility] Start: 04-28-2022 End: 04-29-[address] ARETHA BREWSTER . Facility:[facility] Start: 04-23-2022 End: 04-24-[address] ARETHA BREWSTER . Facility:[facility] Start: 04-10-2022 End: 04-11-[address] ARETHA BREWSTER . Facility:[facility] Start: 03-24-2022 End: 03-24-2022 ambulatory JESSICA MUKHERJEE . Facility:[facility] Start: 01-14-2022 Encounter for genera l adult medical examination without abnormal findings DR ARETHA BREWSTER . [facility] Start: 01-08-2022 End: 01-09-[address] ARETHA BREWSTER . Facility:[facility] Start: 01-08-2022 End: 01-09-2022 Encounter for general adult medical examination without abnormal findings DR ARETHA BREWSTER . Facility:[facility] Start: 11-12-2021 End: 11-12-2021 ambulatory Olivia Dean Other Contour Other Start: 11-12-2021 Office outpatient vi sit 15 minutes Olivia Dean [facility] Procedures Date [...] Td Vaccines (5 - Td or Tdap) [facility] Start: 09-20-2025 Adult BMI Screening Adult BMI Screening [facility] Start: 09-20-2025 Tobacco Screening Tobacco Screening [facility] Start: 02-13-2025 Influenza vaccination Influenza Vaccine [facility] Start: 01-19-2025 Bacteria identified in Urine by Culture Urine Culture [facility] Start: 01-19-2025 Urine culture [facility] Start: 01-09-2025 Urine culture [facility] Start: 01-09-2025 Bacteria identified in Urine by Culture Urine Culture [facility] Start: 03-09-2024 Hepatitis B core antibody measurement [facility] Start: 03-09-2024 [facility] Start: 02-14-2024 COVID-19 Vaccine ( season) COVID-19 Vaccine () [facility] Start: 2021 Fall Risk Screening Fall Risk Screening [facility] Start: 05-11-2018 Administration of varicella zoster vaccine Zoster (Shingles) Vaccine (2 of 3) [facility] Start: 1974 Adult BMI Follow Up Plan Adult BMI Follow Up Plan [facility] Start: 1968 Depression Screening Depression Screening [facility] 24 hour urine measurement [facility] Albumin [Mass/volume ] in Serum or Plasma [facility] Albumin/Globulin ratio [facility] Aldolase measurement [facility] Chromatin Ab [Units/volume] in Serum or Plasma [facility] Electrophoresis: [id number] [facility] Electrophoresis: fvabq-0-pwlwxjmi [facility] Electrophoresis: beta-globulin [facility] Electrophoresis: cuate ma globulin [facility] Globulin [Mass/volum e] in Serum [facility] Hepatitis B virus ortiz rface Ab [Presence] in Serum [facility] Hepatitis B virus ortiz rface Ag [Presence] in Serum or Plasma by Immunoassay [facility] Hepatitis C virus Ig G Ab [Presence] in Serum or Plasma by Immunoassay [facility] Homogenous nuclear A b pattern [Titer] in Serum [facility] Immunofixation for Urine Fir [facility] Interferon gamma assay [facility] Measurement of monoc lonal protein concentration [facility] Mycobacterium tuberc ulosis stimulated gamma interferon [Interpretation] in Blood Qualitative [facility] Mycobacterium tuberc ulosis stimulated gamma interferon release by CD4+ and CD8+ T-cells [Units/volume] corrected for background in Blood [facility] Mycobacterium tuberc ulosis tuberculin stimulated gamma interferon [Presence] in Blood [facility] Nuclear Ab [Titer] i n Serum [facility] Protein [Mass/volume ] in Serum or Plasma [facility] Protein [Mass/volume ] in Urine [facility] Reagin Ab [Presence] in Serum by RPR [facility] Immunizations Immunization Date Immunization Notes Care Provider [facility] 05-04-2023 influenza virus vaccine, unspecified formulation Brian James MD Work Phone: [facility] 04-15-2022 influenza virus vaccine, unspecified formulation Lui GAMINO [facility] 04-14-2022 SARS-CoV-2 (COVID-19 ) [id number] Lui GAMINO [facility] 02-10-2022 SARS-CoV-2 mRNA (vinoxhvmdma-uxxx-gjhcr se) vaccine Lui GAMINO [facility] 08-26-2021 SARS-CoV-2 mRNA (vdwwqoabdbv-ozyz-tpbjw se) vaccine Lui GAMINO [facility] 02-25-2021 SARS-CoV-2 (COVID-19 ) mRNA BNT-162b2 vax Lui GAMINO [facility] 02-04-2021 SARS-CoV-2 (COVID-19 ) mRNA BNT-162b2 vax Lui GAMINO [facility] 03-16-2018 zoster vaccine, unspecified formulation Brian James MD Work Phone: [email or web address] Payers Date Payer Category Payer Medicare HMO MEDICARE HMO/PPO - GENERIC PLAN [id number] 2024 Self-pay 1958 Medicare [id number] 1955 Unknown [id number] 2.16.840.1.782650.3.579. 2.593 1956 Unknown [id number] 2.16.840.1.002539.3.579. 2.593 1956 Unknown [id number] 2.16.840.1.467792.3.579. 2.593 1956 Unknown [id number] 2.16.840.1.483332.3.579. 2.593 1956 Unknown [id number] 2.16.840.1.315876.3.579. 2.593 1956 Unknown [id number] 2.16.840.1.087904.3.579. 2.593 1956 Unknown [id number] 2.16.840.1.892072.3.579. 2.593 1956 Unknown [id number] 2.16.840.1.811388.3.579. 2.727 1956 Unknown [id number] 2.16.840.1.708047.3.579. 2.727 1956 Unknown [id number] 2.16.840.1.586684.3.579. 2.1259 1956 Unknown [id number] 2.16.840.1.910971.3.579. 2.1259 1956 Unknown [id number] 2.16.840.1.090154.3.579. 2.1258 1956 Unknown [id number] 2.16.840.1.093444.3.579. 2.1259 1956 Unknown [id number] 2.16.840.1.728404.3.579. 2.1286 1956 Unknown [id number] 2.16.840.1.422392.3.579. 2.1286 Medicare Medicare [id number] Private Health Insurance [id number] 2.16.840.1.014744.19 Unknown [id number] 2.16.840.1.796278.3.579. 2.531 Unknown [id number] 2.16840.1.017755.3.579. 2.531 Unknown [id number] 2.16840.1.678704.3.579. 2.531 Social History Date Type Detail Facility Start: 09-20-2024 Sex Assigned At F [facility] Start: 09-10-2022 End: 09-20-2024 Tobacco smoking status Ex-smoker (finding) [facility] Tobacco smoking status Never [facility] Start: 1955 Sex Assigned At Female F [facility] History of tobacco use Current smoker [facility] History of tobacco use Cigarette Smoker P [facility] History of tobacco use Passive smoker [facility] Start: 09-20-2024 Tobacco use and exposure Smokeless tobacco non-user [facility] Start: 09-20-2024 Alcoholic beverage intake Ex-drinker (finding) [facility] Start: 09-20-2024 History of Social function [facility] Start: 08-11-2024 Sex Female (finding) [facility] Start: 08-11-2024 Gender identity Identifies as female gender (finding) [facility] Start: 08-11-2024 Sexual orientation Heterosexual (norma weller) [facility] Tobacco smoking stat us NHIS Unknown if ever smoked [facility] Work Phone: Functional Status Date Assessment Result [...] presents with Left 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 - 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 re-est Left THR 10/11/20 [facility], just a follow up no pain [...] Strain: Low Risk (05/15/2022) Received from [facility] Overall Financial Resource Strain (CARDIA) Difficulty of Paying Living Expenses: Not hard at all Food Insecurity: No Food Insecurity (05/15/2022) Received from [facility] Hunger Vital Sign Worried About Running Out of Food in the Last Year: Never true Ran Out of Food in the Last Year: Never true Transportation Needs: No Transportation Needs (05/15/2022) Received from [facility] PRAPARE - Transportation Lack of Transportation (Medical): No Lack of Transportation (Non-Medical): No Physical Activity: Insufficiently Active (05/15/2022) Received from [facility] Exercise Vital Sign Days of Exercise per Week: 2 days Minutes of Exercise per Session: 60 min Stress: No Stress Concern Present (05/15/2022) Received from [facility] Citizen Of [place] [employer] Occupational Health - Occupational Stress Questionnaire Feeling of Stress : Not at all Social Connections: Moderately Integrated (05/15/2022) Received from [facility] Social Connection and Isolation Panel [NHANES] Frequency of Communication with Friends and Family: Twice a week Frequency of Social Gatherings with Friends and Family: Once a week Attends Pent[employer] Services: More than 4 times per year Active Member of Clubs or Organizations: No Attends Club or Organization Meetings: Never Marital Status: Interpersonal Safety: Unknown (08/06/2023) Received from [facility] [place] Safety & Environment Fear of Current or Ex-Partner: Not on file Emotionally Abused: Not on file Physically Abused: Not on file Sexually Abused: Not on file Physically or Sexually Abused: Not on file Housing Instability: Low Risk (05/15/2022) Received from [facility] Housing Stability Vital Sign Unable to [...] hip were reviewed. Findings: Right hip shows bahw-nn-zkvu joint space narrowing with osteophyte formation. The [...] for repeat x-ray. [facility] Evaluation note Encounter Date Diagnosis Assessment Notes May, Nasal congestion (ICD-10 - R09.81) May, RSV infection (ICD-10 - B33.8) Advised patient that RSV PCR test was positive. COVID/influenza A/B PCR test negative. Discussed diagnosis with patients mother in detail. Advised that this is a viral illness and antibiotics are not indicated. Finish previous rx of steroids. Use rx of [facility] as directed. Discussed importance of adequate hydration [...] plan. Patient sent home in stable condition. Contour Other 04-19-2023 NoteOPERATIVE NOTE OPERATION DATE: 10/01/2022 ADDENDUM: Please add to the operative report - Follow up screening colonoscopy should be in 10 years.The [id number] NoteOPERATIVE NOTE OPERATION DATE: 10/01/2022 PREOPERATIVE DIAGNOSIS: [...] in good condition. CC: Aretha Brewster M.D.The [id number] NoteChief Complaint consultation for screening colonoscopy HPI [...] and Sister. Immunizations Vaccin (more content not included)...[facility]:Result Comment: Electronically Signed By: ТАТЬЯНА HERNANDEZ, Lui Moeller\Date and Time Signed: 09/10/22 16:09 [id number] NoteOrthopaedic Surgery Outpatient Visit Note Encounter Date: [...] incisional issues. Follow Up: No follow-ups on file.[facility]05-31-2022 Evaluation note* Encounter Date Diagnosis Assessment [...] nonvenomous arthropods, initial encounter (ICD-10 - W57.XXXA) Contour Other Evaluation + Plan note No data available for this section General Surgery [place] Evaluation noteNo assessment information available [facility] Work Phone: Evaluation note* Diagnosis Aftercare following left hip joint replacement surgery- Primary [facility] N[facility]ative - Reported* Type Description Date Medical History arthritis Surgical History pyloniadal cyst Surgical History both knee Surgical History breast reduction Surgical History tubal ligation Surgical History Total hip replacement Hospitalization History see above surg [employer] [facility] ([facility]) Other History general Narrative - Reported* Type Description Date Medical History arthritis Medical History GERD Surgical History pyloniadal cyst Surgical History both knee Surgical History breast reduction Surgical History tubal ligation Surgical History Total hip replacement Hospitalization History see above surg [employer] [facility] ([facility]) Other Hospital Discharge instructions No data available for this section General Surgery Ivan InstructionsNot on filedocumented in this encounter [facility] No data available for this section General Surgery [place] Reason for referral (narrative)No reason for referral information [facility] Work Phone: Summary Purpose Family History [...] content) DATE CREATED AUTHOR 10/25/2021 [facility] DATE CREATED AUTHOR AUTHOR'S ORGANIZ ATION 05/17/2022 [facility] DATE CREATED AUTHOR AUTHOR'S ORGANIZ ATION 10/10/2022 [facility] DATE CREATED AUTHOR AUTHOR'S ORGANIZ ATION 10/10/2022 [facility] DATE CREATED AUTHOR AUTHOR'S ORGANIZ ATION 08/31/2024 [facility] DATE CREATED AUTHOR AUTHOR'S ORGANIZ ATION 09/22/2024 [facility] DATE CREATED AUTHOR AUTHOR'S ORGANIZ ATION 01/21/2025 [facility] REASON FOR VISIT (unrecogniz ed section and content) Reason Comments 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 [facility]. provides no warranty or guarantee of the accuracy or completeness of information in this document.
== END 2025-03-04 10:18 | disposition home or self-care (01) ==
PROVIDERS: PCP Family Medicine; Visit Provider Family Medicine
DX: Z79.899 Other long term (current) drug therapy (principal); M85.80 Other specified disorders of bone density and structure, unspecified site
CPT/HCPCS: 36415; 82306

== ENCOUNTER 2025-05-08 08:22 | Outpatient (OUT) | payer MEDICARE, SELFPAY ==
--- OUTSIDE RECORDS SUMMARY | 2025-05-08 08:24 | XMS_ITS | Clinical Summary ---
Author Organization [employer] [facility] tem Address [id number] [place] [address] Care Team Providers Care Adjunct Political Science Instructor Name Role Phone Unavailable Primary Care Provider Unavailabl e Allergies Active AllergyReactionsCriticalityNoted DateCommentsErythromycinGI Disturbance 01/04/2024 Other Reaction(s): GI upset LatexDermatitis,Hives05/15/2022 Other Reaction(s): Not available Medications MedicationSigDispense QuantityRefillsLast FilledStart DateEnd DateStatus pantoprazole (PROTONIX) 40 mg EC tablet Take 1 tablet (40 mg total) by mouth every morning before breakfast.Active multivitamin with minerals tablet Take 1 tablet by mouth in the morning.Active Active Problems No known active problems Social History Tobacco UseTypesPacks/DayYears UsedDateSmoking Tobacco: FormerCigarettesPassive Smoke Exposure: PastSmokeless Tobacco: Never Tobacco Cessation:Counseling Given: Not Answered Alcohol UseStandard Drinks/WeekCommentsNot Currently0 (1 standard drink = 0.6 oz pure alcohol)CommentsUnknownSex and Gender InformationValueDate Recorded Sex Assigned at PwjngJbiilg15/27/2025 3:20 PM ESTLegal EhwOwuorb04/27/2025 3:18 PM ESTGender UoxjkrgyTuojxm49/27/2025 3:20 PM ESTSexual OrientationStraight 08/11/2024 3:20 PM EST Last Filed Vital Signs Vital SignReadingTime TakenCommentsBlood Pressure--Pulse--Temperature-- Respiratory Rate--Oxygen Saturation--Inhaled Oxygen Concentration--Jiqeje79.8 kg (176 lb)09/20/2024 12:50 PM AZUImnenl932.3 cm (5' 3.5 )09/20/2024 12:50 PM EDT Body Mass Index30.69009/20/2024 12:50 PM EDT Plan of Treatment Health MaintenanceDue DateLast DoneCommentsDepression Rmgmgylha91/07/1969Adult BMI Follow Up Plan1974Zoster (Shingles) Vaccine (2 of 3)05/11/2018 03/16/2018, 11/12/2017Fall Risk Tszbwopdf58/07/2022COVID-19 Vaccine ( season)/, 02/10/2022, 08/26/2021, Additional history exists Influenza Zuitprj92/, 04/03/2022, 04/11/2021, Additional history existsAdult BMI Nnmndwlqf13/08/34674209/20/2024Tobacco Eepebwhyh80/08/2026 09/20/2024DTaP,Tdap and Td Vaccines (3 - Td or Tdap), 04/23/2007, 05/06/2004, Additional history existsRSV ( or age 60+ yrs) (1 - 1-dose 75+ series)12/20/2031 Medical Devices Not on file Insurance
--- NOTE | 2025-05-08 08:25 | MM_ITS ---
Patient Name: MERCEDES EAGLE MR#: [id number] : 1955 Exam Date: 05/08/2025 Ordering Doctor: DR ARETHA CRUZ . RADIOLOGY REPORT PROCEDURE: MM TOMOSYNTHESIS SCREENING BI COMPARISON: MM TOMOSYNTHESIS SCREENING BI, 05/04/2024. MM TOMOSYNTHESIS SCREENING BI, 04/27/2023. MG MAMM SCREEN 3D ARCELIA CAD, 04/23/2022. MAMMO ARCELIA SCREEN, 02/27/2016. INDICATIONS: Screening Calculator Name NCI Breast Cancer Risk Assessment Tool 5 Year Breast Cancer Risk Not Reported. Lifetime Breast Cancer Risk Not Reported. Personal Breast Cancer No Personal Ovarian Cancer No Treatments None Family Cancers None [facility]ATION: [facility] BREAST COMPOSITION: There are scattered areas of fibroglandular density. FINDINGS: DIAGNOSTIC CATEGORY 1--NEGATIVE. RIGHT BREAST: No significant suspicious finding. LEFT BREAST: No significant suspicious finding. RECOMMENDATIONS: ROUTINE MAMMOGRAM AND CLINICAL EVALUATION IN 12 MONTHS. Dictated by: Elgin Brown DO on 05/08/2025 at 10:56 Approved by: Elgin Brown DO on 05/08/2025 at 11:01
--- OUTSIDE RECORDS SUMMARY | 2025-05-08 08:25 | XMS_ITS | Patient Health Record ---
Author Organization [facility] in [place] Address [address] [place] [address] Care Team Providers Care [employer] Name Role Phone Marco Cruz Primary Care Provider Allergies Allergen (clinical drug ingredient) Drug/Non Drug Allergy documented on EMR Reaction Allergy Type Onset Date Status Latex Latex (uncoded) contact dermatitis Allergy ActiveamoxicillinAmoxicillinrashDrug AllergyActiveerythromycinErythromycinGI upsetDrug AllergyActive Results Component Value Reference Range Notes US renal bladder Reviewed date:02/03/2025 04:06:14 PM Interpretation: Performing Lab: Notes/Report: Source Facility: [place] [address] Ultrasound Report Signed Patient: MERCEDES DUMONT MR#: [id number] : 1955 Acct:[id number] Age/Sex: 69 / F ADM Date: 02/03/25 Loc: US Attending Dr: Aretha Cruz M.D. Ordering Physician: Aretha Cruz M.D. Date of Service: 02/03/25 Procedure(s): US renal bladder Accession Number(s): [id number] cc: Aretha Cruz M.D. [place] [address] Patient Name: MERCEDES DUMONT MRN: [id number] date: 1955 Sex: F Assigned Patient Location: US Current Patient Location: [place] Accession/Order Number: [id number] Exam Date: 02/03/2025 08:25 Report Date: 02/03/2025 [...] Chávez M.D. 02/03/2025 2:22 PM Dictation Location: [place] [address] Electronically authenticated by: [id number] Y Date: 02/03/2025 14:22 Dictated By: Davin Chávez D.O. Signed By: 02/03/255 DD/ 21 TD/TT: Behavior Management Specialist: ELEUTERIO HARPER ([phone]) - IN OFFICE (Not yet reviewed by provider) Interpretation: Performing Lab: Notes/Report: COLOR light yellow CLARITYclearGLUCOSEnegBILIRUBINnegKETONEtraceSPECIFIC GRAVITY1.882UHCPDhinBT0.5 PROTEINnegUROBILINOGENnegNITRITEnegLEUKOCYTE ESTERASEnegUrine Culture - [facility] Reviewed date:01/22/2025 07:58:14 PM Interpretation: Performing Lab: Notes/Report: [facility] ,Urine Culture - FRMCSee Below For Report No Growth 2 Days Urine Culture - FR Urine Culture - [facility] No Growth 2 Days Urine Culture - FR Urine [facility] - [facility]CTesting [facility] No Growth 2 Days Urine Culture - [facility] Urine Culture - [id number] [place] [address] No Growth 2 Days Urine Culture - FR Performing Lab:see noteML - [facility] LBTSH Reviewed date:06/27/2024 08:08:00 PM Interpretation: Performing Lab: Notes/Report: [facility] ,Thyroid Stimulating Hormone3.3330.358-3.740 uIU/mLPerforming Lab:see noteML - [facility] LBT4 Reviewed date:06/27/2024 08:08:00 PM Interpretation: Performing Lab: Notes/Report: [facility] ,T4 Thyroxine7.304.80-13.90 ug/dLPerforming Lab:see noteML - [facility] LBFREE T3 Reviewed date:06/27/2024 08:08:00 PM Interpretation: Performing Lab: Notes/Report: [facility] ,Free T32.772.18-3.98 pg/mLPerforming Lab:see noteML - [facility] LB TSH Reviewed date:05/17/2024 08:42:40 PM Interpretation: Performing Lab: Notes/Report: [facility] ,Thyroid Stimulating Hormone4.2920.358-3.740 uIU/mLPerforming Lab:see noteML - [facility] LBT4 Reviewed date:05/17/2024 08:42:40 PM Interpretation: Performing Lab: Notes/Report: [facility] ,T4 Thyroxine6.004.80-13.90 ug/dLPerforming Lab:see noteML - [facility] LBPROF 14(COMP METB) Reviewed date:05/17/2024 08:42:40 PM Interpretation: Performing Lab: Notes/Report: [facility] ,Qzrtni998079-286 mmol/LPotassium4.13.5-5.1 mmol/LWmpsnpvn97833-879 mmol/LCarbon Qfzfpfz51.821.0-32.0 mmol/LAnion Gap13.9Yrdnovt4247-687 mg/dLBlood Urea Nitrogen 15.07.0-18.0 mg/dLCreatinine0.970.55-1.02 mg/dLEstimated GFR ( Veronique>60 >=60 mL/min/1.73m 2Estimated GFR (Non- Ame57>=60 mL/min/1.73m 2BUN Creatinine Ratio15.4Tkntcuk1.28.5-10.1 mg/dLBilirubin Total0.40.2-1.0 mg/dL Aspartate Amino Mqtkmzlhxiq7240-84 U/LAlanine Xwdobbkmnyswmiqu9341-99 U/L Alkaline Zspgmkgkdwy4569-730 U/LTotal Protein7.26.4-8.2 g/dLAlbumin Level3.43.4- 5.0 g/dLGlobulin3.8Albumin Globulin Ratio0.9Performing Lab:see noteML - [facility] LBLIPID PROFILE Reviewed date:05/17/2024 08:42:40 PM Interpretation: Performing Lab: Notes/Report: [facility] ,Ydncszywtxvvc99<=150 mg/lLUyxvexhydwf220<=200 mg/dLHDL Miqvxhngcdd1927-89 mg/dL > or =60 mg/dl - LOW CARDIOVASCULAR RISK <40 mg/dl - HIGH CARDIOVASCULAR RISK LDL Cholesterol Iyjjbjkvft963.0 130-159 mg/dl BORDERLINE HIGH 100-129 mg/dl NEAR OR ABOVE OPTIMAL >190 mg/dl VERY HIGH 160-189 mg/dl HIGH <100 mg/dl OPTIMAL VLDL GBENDBHFCIL94.0Chol HDL Ratio2.7 3.3 - 4.4 LOW RISK 4.4 - 7.1 AVERAGE RISK >11.0 HIGH RISK 7.1 - 11.0 MODERATE RISK Performing Lab:see noteML - [facility] LBIRON Reviewed date:05/17/2024 08:42:40 PM Interpretation: Performing Lab: Notes/Report: [facility] ,Hccj679.050.0-170.0 ug/dLPerforming Lab:see noteML - [facility] LB FREE T3 Reviewed date:05/17/2024 08:42:40 PM Interpretation: Performing Lab: Notes/Report: [facility] ,Free T32.882.18-3.98 pg/mLPerforming Lab:see noteML - [facility] LB CBC AUTO DIFF Reviewed date:05/17/2024 08:42:40 PM Interpretation: Performing Lab: Notes/Report: [facility] ,White Blood Count5.84.0-11.0 10 3/uLRed Blood Count4.804.20-5.40 10 6/uL Inzsptofbb96.912.0-16.0 g/lCIkembxtbao62.336.0-48.0 %Mean Corpuscular Kybmkd67.2 81.0-99.0 fLMean Corpuscular Vpowxwxudr60.026.7-34.0 pgMean Corpuscular HGB Conc 32.129.9-35.2 g/dLRed Cell Distribution Width13.111.0-15.0 %Platelet Ilpkh237 150-450 10 3/uLMean Platelet Volume9.79.5-13.5 fLNeutrophils Percent Auto42.4 43.0-75.0 %Lymphocytes Percent Auto41.120.5-60.0 %Monocytes Percent Auto13.91.7- 12.0 %Eosinophils Percent Auto1.40.9-7.0 %Basophils Percent Auto1.00.2-2.0 % Immature Granulocytes Pct Auto0.20.0-0.5 %Neutrophils Absolute Auto2.51.4-6.5 10 3/uLLymphocytes Absolute Auto2.41.2-3.8 10 3/uLMonocytes Absolute Auto0.80.3-0.8 10 3/uLEosinophils Absolute Auto0.10.0-0.7 10 3/uLBasophils Absolute Auto0.10.0- 0.1 10 3/uLImmature Granulocytes Abs Auto0.010.00-0.03 10 3/uLPerforming Lab:see noteML - [facility] LBUA DIP NONAUTO WO MICRO (77349) - IN OFFICE Reviewed date:02/03/2025 04:06:14 PM Interpretation: Performing Lab: Notes/Report: COLORlight yellowCLARITYclearGLUCOSEnegBILIRUBINnegKETONEnegSPECIFIC GRAVITY 1.496CLFACbxcJU2.5PROTEINnegUROBILINOGENnegNITRITEnegLEUKOCYTE ESTERASEneg VITAMIN D 25 [place] Reviewed date:03/04/2025 03:52:09 PM Interpretation: Performing Lab: Notes/Report: [facility] ,Vitamin D49.0 30-100 ng/mL Vit D sufficient >100 ng/mL Potential Toxicity 20-<30 ng/mL Vit D insufficient <20 ng/mL Vit D deficient Performing Lab:see noteML - [facility] LBUA RANDOM W or MICROSCOPIC Reviewed date:01/19/2025 10:00:55 PM Interpretation: Performing Lab: Notes/Report: [facility] ,Color UrineLT. YELLOWYELLOWClarity UrineCLEARCLEARSpecific [place] Urine1.020 1.005-1.025pH Urine7.55.0-9.0Protein UrineNEGATIVENEG/TRACE mg/dLGlucose Urine UANEGATIVENEGATIVE mg/dLBilirubin UrineNEGATIVENEGATIVEKetones UrineNEGATIVE NEGATIVE mg/dLBlood UrineNEGATIVENEGATIVENitrite UrineNEGATIVENEGATIVE Urobilinogen Urine0.20.2-1.0 EU/dLLeukocyte Esterase UrineNEGATIVENEGATIVEWBC UrineNONE SEENNONE SEEN #/HPFRBC UrineNONE SEEN0-2 #/HPFBacteria UrineTRACENONE SEEN #/HPFMucus UrineNONE SEENNONE SEENSquamous Epithelial Cell UrineNONE SEEN NONE/RARE #/LPFCrystals Seen?None SeenNone Seen #/HPFCast Seen?NONE SEENNONE SEEN #/LPFPerforming Lab:see note - [facility] LBGLYCOHEMOGLOBIN A1C Reviewed date:05/17/2024 08:42:40 PM Interpretation: Performing Lab: Notes/Report: [facility] ,Glycohemoglobin A1C5.84.5-6.2 % ADA RECOMMENDED LIMIT 4.0 - 6.0 > 7.0 ACTION SUGGESTED ADA THERAPEUTIC TARGET < 7.0 Estimated Average Pgypxvo574Ibyvowstbn Lab:see noteML - [facility] LB Urine Culture - [facility] Reviewed date:01/12/2025 12:56:27 PM Interpretation: Performing Lab: Notes/Report: [facility] ,Urine Culture - FRMCSee Below For Report 15,000 colonies/ml mixed Urine Culture - [facility] Urine Culture - FRbacterial skin contaminants 15,000 colonies/ml mixed Urine Culture - [facility] Urine Culture - [facility]2 Days 15,000 colonies/ml mixed Urine Culture - [facility] Urine Culture - FR 15,000 colonies/ml mixed Urine Culture - [facility] Urine Culture - FRMCTesting performed at [facility] 15,000 colonies/ml mixed Urine Culture - [facility] Urine Culture - [id number] [facility] [place] [address] 15,000 colonies/ml mixed Urine Culture - [facility] Performing Lab:see note - [facility] LBUA RANDOM W or MICROSCOPIC Reviewed date:01/09/2025 05:02:55 PM Interpretation: Performing Lab: Notes/Report: [facility] ,Color UrineLT. YELLOWYELLOWClarity UrineCLEARCLEARSpecific [place] Urine1.015 1.005-1.025pH Urine8.55.0-9.0Protein UrineNEGATIVENEG/TRACE mg/dLGlucose Urine UANEGATIVENEGATIVE mg/dLBilirubin UrineNEGATIVENEGATIVEKetones UrineNEGATIVE NEGATIVE mg/dLBlood UrineNEGATIVENEGATIVENitrite UrineNEGATIVENEGATIVE Urobilinogen Urine0.20.2-1.0 EU/dLLeukocyte Esterase UrineNEGATIVENEGATIVEWBC Urine2-5NONE SEEN #/HPFRBC Urine0-20-2 #/HPFBacteria UrineMODERATENONE SEEN #/HPFMucus UrineNONE SEENNONE SEENSquamous Epithelial Cell UrineFEWNONE/RARE #/LPFTransitional Epi Cells UrineRARENONE SEEN #/LPFCrystals Seen?None SeenNone Seen #/HPFCast Seen?NONE SEENNONE SEEN #/LPFPerforming Lab:see noteML - [facility] Reason For Referral No Information Medications Medication SIG (Take, Route, Frequency, Duration) Notes Start Date End Date Status tiZANidine HCl 4 MG 2 tablets Orally at bedtime; Duration: 15 PRN 04/06/2023 ActiveVitamin D (Cholecalciferol) 50 MCG (1999)2 capsule Orally Once a day ActiveCalcium 600 MG2 tablet with meals Orally three times dailyActiveProtonix 40 MG1 tablet Orally Once a day; Duration: 90 daysActiveDiclofenac Sodium 75 MG1 tablet as needed Orally Twice a day; Duration: 49OUG7911/18/2022ctive Immunizations Vaccine Route Administration Date Status Comme nts BCG Unknown 07/10/2014 Administered Flu, Fluad (88735) 65 yrs + High Dose Seasonal (3315-9736)Gmfiogk4204/03/2022 AdministeredFlu, Fluad (36958) 65 yrs and older, single-dose syringe (3417-0196) IM Owithvpemqihq31/06/2024dministeredFlu, Flucelvax (55371) 2 yrs+, single-dose syringe (5729-8363)Oyeikda3605/30/2020AdministeredFlu, Flucelvax (78063) 2 yrs+, single-dose syringe ()Vhqastd5904/11/2021dministeredFlu, Fluzone High- Dose (1839-0968) (61180) 65 yrs+Mcubvnt95/20/2023AdministeredHep A, unspecified Dxlkjii4311/21/2018AdministeredPneumococcal (Prevnar 13)Deukpkb9309/24/2017 AdministeredPneumococcal (Prevnar 13)Xxatqhi9309/22/20213120IkoxiwndjptpTNRE-FCV-4 (COVID 19 Pfizer 30mcg/0.3mL)Wwcvanj31/23/5096VxgwtebtrizbEHZE-XOF-1 (COVID 19 Pfizer 30mcg/0.3mL)Eniirzq55/13/8517OerahkgcyxjoTANC-MKD-5 (COVID 19 Pfizer 30mcg/0.3mL), pastora xxcrwcnOwoejbd648192DambueesrqkeFPYV-POL-4 (COVID 19 Pfizer 30mcg/0.3mL), pastora hwdasgfQefscwi58/29/8527YfdcqgjslqxyACXS-EYE-0 (COVID 19) bivalent 30 mcg/0.3 ml vcngZvwvobe37/31/2022AdministeredTd, Adult, preservative gooaXqksyjj35/22/2004AdministeredTdap (Boostrix)Gqibeuk3704/23/2007 AdministeredTetanus toxoid, absorbed - xxvrynlcSgqeaou10/01/1995Administered Tetanus toxoid, absorbed - nterfxapNwmeqbt13/12/2018Administered Social History Tobacco Use: Social History Observation Description Date Details (start date - stop date) Former Smoker NA - 10/13/2001 Tobacco Use/Smoking Question Answer Notes Patient is a former smoker When did you stop smoking?10/13/2001How long has it been since you last smoked?> 10 yearsAlcohol Screen (Audit-C) Question Answer Notes Did you have a drink containing alcohol in the p ast year? No Ectcyg4NubmuhssfnnvsuNwolswvbAOZDK-V (Standard) Question Answer Notes Did you have a drink containing alcohol in the p ast year? No Xbkowl6SfcjlsheidpqpzPrahnuuj Problems Problem Type SNOMED Code ICD Code Onset Dates Problem Status W/U Status Risk Notes Problem Sialolithiasis (62256159) Sialolithiasis (K11.5) ActiveconfirmedProblemSenile osteoporosis (94761617)Senile osteoporosis (M81.0) ActiveconfirmedProblemGastroesophageal reflux disease (000196953)GERD (gastroesophageal reflux disease) (K21.9)ActiveconfirmedProblemBradycardia (63397307)Bradycardia (R00.1)ActiveconfirmedProblemPlantar fasciitis (158948715) Plantar fasciitis (M72.2)ActiveconfirmedProblemOsteoarthritis of left knee joint (571023816011197)Left knee DJD (M17.9)ActiveconfirmedProblemSialoadenitis (46643940)Sialoadenitis (K11.20)Activeconfirmed Vital Signs Blood pressure diastolic 76 mm Hg 03/20/2025 Jbiiek70 in03/20/2025lood pressure cyctzwye943 mm Hg03/20/20254667Owkxgd434.6 lbs 03/20/2025BMI29.8 kg/m203/20/2025 Encounters Encounter Location Date Provider Diagnosis [facility] [address] [place] [address] 01/19/2025 Marco Cruz UTI (urinary tract infection) N39.0 [facility] [address] [place] [place] [address] 01/22/2025 Marco [facility] [place] [place] [facility] [place] [address] 02/03/2025[facility] [facility] [place] [address]/03/2025Doug [facility] [place] [facility] [place] [place] [address]/[facility] [facility] [place] [address]/02/2025Doug HoySialoadenitis K11.20[facility] [facility] [place] [address]/ [facility] [place] [address]/Doug HoyOsteopenia M85.80 and Medication management Z79.899 [facility] [place] [address] 01/09/2025Doug HoyFlank pain R10.9[place] [address] [place] [address]/[facility] [address] [place] [address]/oug HoyHypothyroid E03.[address] [address] 11/29/2024Doug HoyEncounter for Medicare annual wellness exam Z00.00 and Senile osteoporosis M81.0[place] [address] [place] [address]/Doug HoyUTI (urinary tract infection) N39.0 and Dysuria [address] [address] 03/20/2025Doug HoyFlank pain R10.9 Assessments Encounter Date Diagnosis (ICD Code) Assessment Notes Treatment Notes Treatment Clinical Notes Section Notes 11/29/2024 Encounter for Medicare annual we llness exam (ICD-10 - Z00.00) 11/29/2024Senile osteoporosis (ICD-10 - M81.0)01/30/2025UTI (urinary tract infection) (ICD-10 - N39.0)01/30/2025Dysuria (ICD9-CM - 788.1)03/20/2025Flank pain (ICD-10 - R10.9)Trial diclofenac and heating - update on ubsffy8305/17/2024 Hypothyroid (ICD-10 - E03.9)10/21/2024Sialoadenitis (ICD-10 - K11.20)12/30/2024 Osteopenia (ICD-10 - M85.80)12/30/2024Medication management (ICD-10 - Z79.899) 01/09/2025Flank pain (ICD-10 - R10.9)01/19/2025UTI (urinary tract infection) (ICD-10 - N39.0)03/20/2025OtherRecommended to rest and use a heating pad on the area. Take NSAIDs for pain as needed Plan Of Treatment Pending Test Test Name Order Date CMP (COMPLETE METABOLIC PANEL) 4 UA (URINALYSIS, COMPLETE) 01/09/2025 UA (URINALYSIS, COMPLETE) 01/19/2025 HEMOGLOBIN A1C (GLYCO) 04/20/2024 IRON, TOTAL 04/20/2024 LIPID PANEL (CHOL/TRIG/HDL/LDL) 04/20/20 24 CBC WITH DIFF 04/20/2024 UA DIP NONAUTO WO MICRO (01126) - IN OFF ICE 03/20/2025 Urine Culture 01/19/2025 Urine Culture 01/09/2025 URINE MICROSCOPIC ONLY 01/19/2025 XR DEXA BONE DENSITY 11/29/2024 XR KNEE LT 3V 11/18/2022 THYROID PANEL (T4/TSH/FREE T3) 4 THYROID PANEL (T4/TSH/FREE T3) 4 Vitamin D 12/30/2024 Insurance Providers Payer Name Payer Address Payer Phone Subscriber Number Group Number Insured Name Patient Relationship to Insured Coverage Start Date Coverage End Date [employer] MED[employer]ARE ADV PLAN [address] [address] [place] [address] [id number] Sienna Dumont - patient is the [place] [id number], DebraSelf - patient is the insured Medical (General) History Medical History History ICD Code Arthritis of knee, left M17.12 Acid reflux K21.9 Bradycardia R00.1 Arthritis of knee, left M17.12 Age-related bone loss M85.80 Calculus in salivary duct K11.5 Surgical History Surgery Date(Month/Year) colonscopy 10/01/2022 left total hip arthropasty 10/11/2020
--- OUTSIDE RECORDS SUMMARY | 2025-05-08 08:25 | XMS_ITS | CCD ---
Author Organization [facility] [employer] Care Team Providers Care Marketing Operations Consultant Name Role Phone Olivia Dean Unavailable TIMMY TINSLEY Referring Unavailable TIMMY TINSLEY Attending Unavailable Aretha Brewster Primary Care Physician [phone] JESSICA PACHECO Attending Unavailable YAZ ., JESSICA [...] Consulting Unavailable DAYL, Lui Pineda Attending Unavailable NILL, Lui Pineda Attending Unavailable Sarah Sargent Unavailable MD Aretha Brewster Primary Care Provider MD Gordy Matthew Attending Provider EUGENIO GARCIA H Attending Unavailable EUGENIO GARCIA H Attending Unavailable EUGENIO GARCIA H Attending Unavailable EUGENIO GARCIA H Attending Unavailable ARETHA BREWSTER Referring Unavailable Unavailable Primary Care Provider UnavailBRIAN Vázquez Referring Unavailable BRIAN JAMES Attending Unavailable Aretha Brewster MD Attending Provider Aretha Brewster Admitting Unavailable Aretha Brewster Attending Unavailable Aretha Brewster Admitting Unavailable Aretha Brewster Attending Unavailable Gordy Matthew Admitting Unavailable Gordy Matthew Attending Unavailable Aretha Brewster Primary Care Unavailable Aretha Brewster MD Primary Care Provider Allergies Allergy ClassificationReported Allergen(s)Allergy TypeDate of OnsetReaction(s) Facility (7 sources)Erythromycin; Translations: [erythromycin]Drug Wgciwgc13-89-7376SR Disturbance, GI intoleranceGeneral Surgery Clare (10 sources)Latex; Translations: [LATEX]Propensity to adverse reactions 96-47-7391Huhizvuqefcl dermatosis (disorder), Dermatitis, [facility]Prov[facility] (5 sources)Penicillin GDrug Dnatdzl52-03-3413jsbeykfknjiKmgsjrsab [facility] (4 sources)Penicillins; Translations: [PENICILLINS]Propensity to adverse reactions to drug (disorder)39-53-5229Mnkzyfjssnb (disorder), RashProvidence Hospital Repository (6 sources)ERYTHROMYCIN BASE; Translations: [ERYTHROMYCIN BASE]Propensity to adverse reactions to drug (disorder)18-33-0635CX upsetProvidence Hospital Repository (1 source)natural latex rubberDrug allergy (disorder)98-41-1252Lyw [facility] Repository (1 source)PenicillinDrug AllergyThe [facility] (1 source)LatexDrug allergy (disorder)65-07-1276FhqoxqxijSycamore Medical Center Repository (1 source)PenicillinDrug Nrgfebz34-55-5906XcmmmmrslSycamore Medical Center Repository (1 source)LatexAllergy to kjrkryjao10-21-7242[facility] Medications Current Medications MedicationDrug Class(es)DatesSig (Normalized)Sig (Original)aspirin 81 mg delayed release oral tablet (1 source)Platelet Aggregation Inhibitor, Nonsteroidal Anti-inflammatory Drug Start: 97-66-0480srns 1 tablet by mouth once dailyaspirin 81 mg Oral EC Tab 81 mg = 1 tab(s), Oral, Daily, Refills(s) 0 Start Date: 09/10/22 Status: Ordered calcium carbonate 1500 mg oral tablet (1 source)Start: 88-94-3854qxxueyf (as carbonate) 600 mg oral tablet 1,200 mg = 2 tab(s), Oral, Daily, Refills(s) 0 Start Date: 08/29/22 Status: Orderedcelecoxib 400 mg oral capsule (2 sources)Nonsteroidal Anti-inflammatory DrugStart: 92-27-1451vcia 1 capsule by mouth once dailyCelebrex 400 mg oral capsule 400 mg = 1 cap(s), Oral, Daily, Refills(s) 0 Start Date: 08/29/22 Status: OrderedCeleBREX Activecephalexin 500 mg oral capsule (1 source)Cephalosporin AntibacterialStart: 84-68-2344xajh 1 capsule by mouth every eight hoursCephalexin 500 MG 1 capsule Orally three times a day for 10 day(s) October, Activecholecalciferol 0.05 mg oral capsule (1 source)Vitamin Dtake 1 capsule by mouth once dailycholecalciferol (Vitamin D- 3) 50 MCG (1999 UT) capsule Take 2,000 Units by mouth 1 (one) time each day at the same time Activedextromethorphan hydrobromide 1.5 mg/ml / pyrilamine maleate 1.5 mg/ml oral solution (1 source)Uncompetitive S-vlseqx-S-aspartate 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, Sigma-1 AgonistStart: 21-30-0033ycka 10 mL by mouth every eight hoursCapron DM 7.5-7.5 MG/5ML 10 mL Orally every 8 hours for 5 days May, ActiveMulti Vitamins oral tablet (1 source)Start: 19-51-4565afku 1 tablet by mouth once dailyMulti Vitamins oral tablet 1 tab(s), Oral, Daily, Refill(s) 0 Start Date: 09/10/22 Status: Ordered multivitamin with minerals tablet (1 source)take 1 tablet by mouth in the morningmultivitamin with minerals tablet Take 1 tablet by mouth in the morning. Activenitroglycerin 0.4 mg sublingual tablet (1 source)Nitrate VasodilatorStart: 80-35-2998xrswvthstwlbw 0.4 mg sublingual Tab 0.4 mg = 1 tab(s), SubLingual, q5min, PRN for chest pain, Refills(s) 0 Start Date: 08/29/22 Status: Orderedpantoprazole 40 mg delayed release oral tablet (4 sources)Proton Pump InhibitorStart: 91-38-8228pdfk 1 tablet by mouth once dailyProtonix 40 mg Tab-DR 40 mg = 1 tab(s), Oral, Daily, Refills(s) 0 Start Date: 08/29/22 Status: OrderedpredniSONE 20 mg oral tablet (1 source)take 1 tablet by mouth every twenty-four hourspredniSONE 20 MG 1 tablet Orally Once a day Activetriamcinolone acetonide 1 mg/ml topical cream (1 source)CorticosteroidStart: 44-73-9592Rydvjvtmfeorf Acetonide 0.1 % 1 application Externally 2 times a day for 7 day(s) Apply a small amount to the insect bite on the left lower leg twice a day for 7 days October, Active Vitamin D3 2000 intl units oral Tab (1 source)Start: 23-87-6822wjov 1 tablet by mouth once dailyVitamin D3 2000 intl units oral Tab 50 mcg, Oral, Daily, tab(s), Refills(s) 0 Start Date: 08/29/22 St atus: Ordered Problems Active Problems Problem ClassificationProblemDateDocumented DateEpisodic/ChronicDisorders of lipid metabolism (1 source)Hyperlipidemia, unspecified; Translations: [HYPERLIPIDEMIA UNSPECIFIED]Onset: 16-48-7006ZmdblbuHnewdbamwk disorders (3 sources)Gastroesophageal reflux disease; Translations: [Gastro-esophageal reflux disease without esophagitis]Onset: 189667-21-2015KeahvumRroagijxly disorders (4 sources)Other primary ovarian failure; Translations: [OTHER PRIMARY OVARIAN FAILURE]Onset: 79-89-3673UjxvgyhAssongrarlzvlz (2 sources)Osteoarthritis; Translations: [Unspecified osteoarthritis, unspecified site]Onset: 883545-59-7540SjueueuZnhyq aftercare (1 source)Patient encounter status; Translations: [Aftercare following joint replacement surgery]13-57-9178BjfndlgIvkgk aftercare (1 source)Aftercare following joint replacement surgery; Translations: [Aftercare following joint replacementsurgery]Onset: 93-51-3770GzjmzclJppin aftercare (1 source)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; Translations: [SENIOR CARE CURRENT USE OF ASPIRIN]Onset: 03-89-7805JgjsfkepAiobi connective tissue disease (3 sources)Presence of left artificial hip joint; Translations: [Presence of left artificial hip joint]Onset: 45-27-8485RnbxjcgNrgiy nutritional; endocrine; and metabolic disorders (2 sources)Body mass index 30+ - obesity; Translations: [Body mass index (BMI) 30.0-30.9, adult]Onset: 881485-32-5170PlqrbzaNwddh upper respiratory disease (2 sources)Seasonal allergy; Translations: [Other seasonal allergic rhinitis] ChronicOther upper respiratory disease (2 sources)Seasonal allergic rhinitis; Translations: [Other seasonal allergic rhinitis]Onset: 771840-54-8517DopxfgyXmahs upper respiratory disease (1 source)Nasal congestionEpisodicUnclassified (1 source)Patient encounter ntodap48-13-4605Anchzopnmdxx (1 source)New PatientOnset: 36-43-2892Cpcnj infection (1 source)Other specified viral diseasesEpisodic Past or Other Problems Problem ClassificationProblemDateDocumented DateEpisodic/ChronicCardiac dysrhythmias (2 sources)Bradycardia; Translations: [Bradycardia, unspecified]Onset: 487972-86-0811GuermnlaZjxbfkdlhg and other anemia (1 source)Anemia, unspecified; Translations: [ANEMIA UNSPECIFIED]Onset: 55-39-7214LyivudccMchztksw mellitus without complication (1 source)Other abnormal glucose; Translations: [OTHER ABNORMAL GLUCOSE]Onset: 12-58-1769PeovibpmSexsfwky of mouth; excluding dental (2 sources)Sialoadenitis; Translations: [Sialoadenitis, unspecified]Onset: 117024-21-5802OjgrndkkT Codes: Natural/environment (1 source)Bitten or stung by nonvenomous insect and other nonvenomous arthropods, initial encounterOnset: 11-12-2021 Resolved: 80-82-0448KbwbjuxbBshgfgf and fatigue (1 source)Other fatigue; Translations: [OTHER FATIGUE]Onset: 80-12-9008Xvqftyzc Nonspecific chest pain (7 sources)Chest pain, unspecified; Translations: [Other chest pain]Onset: 49-76-6005UisnyfplLnpme aftercare (1 source)Other mcc (current) drug therapy; Translations: [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]Onset: 12-60-9014UvokygkzYojee bone disease and musculoskeletal deformities (1 source)Other specified disorders of bone density and structure, unspecified site; Translations: [OTH D/O BONE DEN STRUCT UNS SITE]Onset: 67-20-5084Iarunxrm Other hematologic conditions (1 source)Elevated erythrocyte sedimentation rate; Translations: [Elevated erythrocyte sedimentation rate]Onset: 86-16-4363XtkabyjlKsjmb screening for suspected conditions (not mental disorders or infectious disease) (10 sources)Screening for malignant neoplasm of colon done; Translations: [Encounter for screening for malignant neoplasm of colon]Onset: 04-23-2022 EpisodicOther skin disorders (1 source)Neck swelling; Translations: [Localized swelling, mass and lump, neck] Onset: 082030-17-6517CodupdclEplwjzhby and history of mental health and substance abuse codes (1 source)Personal history of nicotine dependence; Translations: [PERSONAL HISTORY OF NICOTINE DEPEND]Onset: 67-23-6428UmppznzkYvgkbdmtkai injury; contusion (1 source)Insect bite (nonvenomous), left lower leg, initial encounterOnset: 11-12-2021 Resolved: 25-63-2466Afmgmnbb Results Test NameValueInterpretationReference RangeFacilityUrine Cultureon 01-19-2025 Bacteria identified Cx Nom (U)No Growth 2 Days PERFORMED BY: [address] [place] [address] PATHOLOGIST PATIENT REGISTRATION SUPERVISOR CHALO ALANIS M.D.[facility] Physician GroupComment on above: Performed By: #### CRP, CK, CBC, CMP, T4F, ESR, TSH3, ADDONUAPLUS #### [facility] [address] [place] [address] [place] #### SPE, KARUNA,URINE, BIGG, HBCAB, ALDOLASE, RPR W RFX, HCV RX PCR, UPE RAND, HBSAB, QUANT TB, CHROMATIN, HBSAG #### [facility] ,Urine Cultureon 59-89-7112Cvntgofw identified Cx Nom (U)15,000 colonies/ml mixed bacterial skin contaminants 2 Days PERFORMED BY: [address] [place] [address] PATHOLOGIST PATIENT REGISTRATION SUPERVISOR CHALO ALANIS M.D.NormalThe [facility], [facility] Physician GroupComment on above: Performed By: #### CRP, CK, CBC, CMP, T4F, ESR, TSH3, ADDONUAPLUS #### [facility] [address] [place] [address] [place] #### SPE, KARUNA,URINE, BIGG, HBCAB, ALDOLASE, RPR W RFX, HCV RX PCR, UPE RAND, HBSAB, QUANT TB, CHROMATIN, HBSAG #### [facility] ,Urine cultureOrdered By: Aretha Brewster on 08-11-8426Egevfwek identified Cx Nom (U)2 DaysSycamore Medical CenterXR HIP LT 2-3 VIEWS W OR WO PELVISon 48-32-6071MG HIP LT 2-3 VIEWS W OR WO PELVISXR HIP LT 2-3 VIEWS W OR WO PELVIS CLINICAL INFORMATION: Aftercare following left hip joint replacement surgery TECHNIQUE: XR HIP LT 2-3 VIEWS W OR WO PELVIS 3 views left hip are obtained. Patient status post left hip arthroplasty. Hardware appears intact. Alignment anatomic. IMPRESSION: Satisfactory postoperative hip. Finalized by Jasiel Price MD on 09/20/2024 3:18 PMNormalProMedica Southview Medical CenterANA Antinuclear Antibodieson 16-44-7309Ekvneweiibb Abs, IFANegative Normal.The [facility] Physician GroupComment on above:Result Comment: Negative <1:80 Borderline 1:80 Positive >1:80 ICAP nomenclature: AC-0 For more information about Hep-2 cell patterns use ANApatterns.org, the official website for the International Consensus on Antinuclear Antibody (BIGG) Patterns (ICAP). Performed at: [facility] [employer] [id number] Client Program Manager: Jasiel Key PhD, Phone: [phone] By: #### CRP, CK, CBC, CMP, T4F, ESR, TSH3, ADDONUAPLUS #### [place] [address] [place] #### SPE, KARUNA,URINE, BIGG, HBCAB, ALDOLASE, RPR W RFX, HCV RX PCR, UPE RAND, HBSAB, QUANT TB, CHROMATIN, HBSAG #### [facility] ,Alanine aminotransferase [Enzymatic activity/volume] in Serum or PlasmaOrdered By: Gordy Matthew on 32-79-7267MAY [Catalytic activity/Vol]15 U/LNormal7-52 [facility] CenterComment on above:Performed By: #### CRP, CK, CBC, CMP, T4F, ESR, TSH3, ADDONUAPLUS #### [place] [address] [place] #### SPE, KARUNA,URINE, BIGG, HBCAB, ALDOLASE, RPR W RFX, HCV RX PCR, UPE RAND, HBSAB, QUANT TB, CHROMATIN, HBSAG #### [facility] ,Albumin [Mass/volume] in Serum or Plasma by Bromocresol green (BCG) dye binding methoOrdered By: Gordy Matthew on 80-34-1217Bjuydto BCG dye [Mass/Vol]4.2 g/dL 3.5-5.7FParkview Health Bryan HospitalAldolaseon 65-66-4231Bnqndhgl2.6 U/L Normal3.3-10.3The [facility] Physician GroupComment on above:Result Comment: Performed at: [facility] [employer] [id number] Client Program Manager: Jasiel Key PhD, Phone: [phone] PERFORMED BY: [place] [address] PATHOLOGIST PATIENT REGISTRATION SUPERVISOR JOCELYN EDGE M.D.Performed By: #### CRP, CK, CBC, CMP, T4F, ESR, TSH3, ADDONUAPLUS #### [facility] [address] [place] [address] [place] #### SPE, KARUNA,URINE, BIGG, HBCAB, ALDOLASE, RPR W RFX, HCV RX PCR, UPE RAND, HBSAB, QUANT TB, CHROMATIN, HBSAG #### [facility] ,Alkaline phosphatase [Enzymatic activity/volume] in Serum or PlasmaOrdered By: Gordy Matthew on 73-24-7796VQU [Catalytic activity/Vol]77 U/EIknrod45-936 [facility] CenterComment on above:Performed By: #### CRP, CK, CBC, CMP, T4F, ESR, TSH3, ADDONUAPLUS #### [place] [address] [place] #### SPE, KARUNA,URINE, BIGG, HBCAB, ALDOLASE, RPR W RFX, HCV RX PCR, UPE RAND, HBSAB, QUANT TB, CHROMATIN, HBSAG #### [facility] ,Aspartate aminotransferase [Enzymatic activity/volume] in Serum or Plasma Ordered By: Gordy Matthew on 75-25-6514ABX [Catalytic activity/Vol]13 U/LNormal 13-39[facility] Medical CenterComment on above:Performed By: #### CRP, CK, CBC, CMP, T4F, ESR, TSH3, ADDONUAPLUS #### [place] [address] [place] #### SPE, KARUNA,URINE, BIGG, HBCAB, ALDOLASE, RPR W RFX, HCV RX PCR, UPE RAND, HBSAB, QUANT TB, CHROMATIN, HBSAG #### [facility] ,Automated basophil %Ordered By: Gordy Matthew on 95-71-8508Tvlufjlgd/100 WBC (Bld)0.5 %Normal.[facility] Medical CenterComment on above:Performed By: #### CRP, CK, CBC, CMP, T4F, ESR, TSH3, ADDONUAPLUS #### [address] [place] [address] [place] #### SPE, KARUNA,URINE, BIGG, HBCAB, ALDOLASE, RPR W RFX, HCV RX PCR, UPE RAND, HBSAB, QUANT TB, CHROMATIN, HBSAG #### [facility] ,Automated basophil countOrdered By: Gordy Mattehw on 59-03-5432Jprwdlded (Bld) [#/Vol]0.1 10*3/uLNormal0.0-0.2FParkview Health Bryan HospitalComment on above:Performed By: #### CRP, CK, CBC, CMP, T4F, ESR, TSH3, ADDONUAPLUS #### [facility] [address] [place] [address] #### SPE, KARUNA,URINE, BIGG, HBCAB, ALDOLASE, RPR W RFX, HCV RX PCR, UPE RAND, HBSAB, QUANT TB, CHROMATIN, HBSAG #### [facility] ,Automated blood monocyte countOrdered By: Gordy Matthew on 45-95-1948Ymkbswtzh (Bld) [#/Vol]1.0 10*3/uLHigh0.0-0.8[facility] Medical CenterComment on above:Performed By: #### CRP, CK, CBC, CMP, T4F, ESR, TSH3, ADDONUAPLUS #### [facility] [address] [place] [address] #### SPE, KARUNA,URINE, BIGG, HBCAB, ALDOLASE, RPR W RFX, HCV RX PCR, UPE RAND, HBSAB, QUANT TB, CHROMATIN, HBSAG #### [facility] ,Automated eosinophil %Ordered By: Gordy Matthew on 78-52-8471Neehyvbdxtu/100 WBC (Bld)0.4 %Normal.[facility] Medical CenterComment on above:Performed By: #### CRP, CK, CBC, CMP, T4F, ESR, TSH3, ADDONUAPLUS #### [address] #### SPE, KARUNA,URINE, BIGG, HBCAB, ALDOLASE, RPR W RFX, HCV RX PCR, UPE RAND, HBSAB, QUANT TB, CHROMATIN, HBSAG #### [facility] ,Automated eosinophil countOrdered By: Gordy Matthew on 32-77-8988Ahvvjaqxiqb (Bld) [#/Vol]0.0 10*3/uLNormal0.0-0.45[facility] Medical CenterComment on above:Performed By: #### CRP, CK, CBC, CMP, T4F, ESR, TSH3, ADDONUAPLUS #### [address] #### SPE, KARUNA,URINE, BIGG, HBCAB, ALDOLASE, RPR W RFX, HCV RX PCR, UPE RAND, HBSAB, QUANT TB, CHROMATIN, HBSAG #### [facility] ,Automated monocyte %Ordered By: Gordy Farooqrow on 78-38-2151Njrvxljle/100 WBC (Bld)8.5 %Normal.[facility] Medical CenterComment on above:Performed By: #### CRP, CK, CBC, CMP, T4F, ESR, TSH3, ADDONUAPLUS #### [place] [address] [place] #### SPE, KARUNA,URINE, BIGG, HBCAB, ALDOLASE, RPR W RFX, HCV RX PCR, UPE RAND, HBSAB, QUANT TB, CHROMATIN, HBSAG #### [facility] ,Automated neutrophil %Ordered By: Gordy Farooqrow on 01-21-2558Clverxdtfwz/100 WBC (Bld)66.2 %Normal.[facility] Medical CenterComment on above: Performed By: #### CRP, CK, CBC, CMP, T4F, ESR, TSH3, ADDONUAPLUS #### [place] [address] [place] #### SPE, KARUNA,URINE, BIGG, HBCAB, ALDOLASE, RPR W RFX, HCV RX PCR, UPE RAND, HBSAB, QUANT TB, CHROMATIN, HBSAG #### [facility] ,Bacteria [Presence] in Urine by AutomatedOrdered By: Gordy Farooqrow on 66-53-5831Qnhmfqav Auto Ql (U)Rare [HPF]None SeenSycamore Medical CenterBilirubin Test strip Ql (U)Ordered By: Gordy Matthew on 03-09-2024 Bilirubin Ql (U)NegativeNegativeSycamore Medical CenterBilirubin.total [Mass/volume] in Serum or PlasmaOrdered By: Gordy Farooqrow on 03-09-2024 Bilirubin [Mass/Vol]0.4 mg/dLNormal0.3-1.0[facility] Comment on above:Performed By: #### CRP, CK, CBC, CMP, T4F, ESR, TSH3, ADDONUAPLUS #### [facility] [address] #### SPE, KARUNA,URINE, BIGG, HBCAB, ALDOLASE, RPR W RFX, HCV RX PCR, UPE RAND, HBSAB, QUANT TB, CHROMATIN, HBSAG #### [facility] ,C reactive protein [Mass/volume] in Serum or PlasmaOrdered By: Gordy Farooqrow on 91-72-2039DBZ [Mass/Vol]< 0.5 mg/dL0.0-0.5FParkview Health Bryan HospitalC- Reactive Proteinon 74-26-9184AXY [Mass/Vol]mg/LNormal0.0-0.5The [facility] Physician GroupComment on above:Performed By: #### CRP, CK, CBC, CMP, T4F, ESR, TSH3, ADDONUAPLUS #### [facility] [address] [place] [address] [place] #### SPE, KARUNA,URINE, BIGG, HBCAB, ALDOLASE, RPR W RFX, HCV RX PCR, UPE RAND, HBSAB, QUANT TB, CHROMATIN, HBSAG #### [facility] ,Calcium [Mass/volume] in Serum or PlasmaOrdered By: Gordy Farooqrow on 68-61-6271Udaiqfi [Mass/Vol]10.6 mg/dLHigh8.6-10.3FParkview Health Bryan HospitalComment on above:Performed By: #### CRP, CK, CBC, CMP, T4F, ESR, TSH3, ADDONUAPLUS #### [facility] [address] [place] [address] #### SPE, KARUNA,URINE, BIGG, HBCAB, ALDOLASE, RPR W RFX, HCV RX PCR, UPE RAND, HBSAB, QUANT TB, CHROMATIN, HBSAG #### [facility] ,Carbon dioxide, total [Moles/volume] in Serum or PlasmaOrdered By: Gordy Matthew on 80-31-8075GQ6 [Moles/Vol]30.4 mmol/JHablkw91.0-31.0[facility] Medical CenterComment on above:Performed By: #### CRP, CK, CBC, CMP, T4F, ESR, TSH3, ADDONUAPLUS #### [facility] [address] [place] [address] [place] #### SPE, KARUNA,URINE, BIGG, HBCAB, ALDOLASE, RPR W RFX, HCV RX PCR, UPE RAND, HBSAB, QUANT TB, CHROMATIN, HBSAG #### [facility] ,Chloride [Moles/volume] in Serum or PlasmaOrdered By: Gordy Matthew on 06-99-7363Pdthnfdk [Moles/Vol]103 mmol/NHntxpi11-251CydqdkjkySycamore Medical CenterComment on above:Performed By: #### CRP, CK, CBC, CMP, T4F, ESR, TSH3, ADDONUAPLUS #### [facility] [address] [place] [address] [place] #### SPE, KARUNA,URINE, BIGG, HBCAB, ALDOLASE, RPR W RFX, HCV RX PCR, UPE RAND, HBSAB, QUANT TB, CHROMATIN, HBSAG #### [facility] ,Chromatin Antibodyon 96-22-2609Xrjphxmkg Antibody<0.8Kijvfp2.0-0.9The [facility] Physician GroupComment on above:Result Comment: Performed at: - [facility] [id number] Client Program Manager: Jasiel Key PhD, Phone: [phone] By: #### CRP, CK, CBC, CMP, T4F, ESR, TSH3, ADDONUAPLUS #### [facility] [address] [place] [address] [place] #### SPE, KARUNA,URINE, BIGG, HBCAB, ALDOLASE, RPR W RFX, HCV RX PCR, UPE RAND, HBSAB, QUANT TB, CHROMATIN, HBSAG #### [facility] ,Color of Urine by AutoOrdered By: Gordy Matthew on 66-03-3518Kenmt (U) Light-yellowNormalYMercy HospitalComment on above:Order Comment: Name Collection Type:: Clean-Voided MidstreamPerformed By: #### CRP, CK, CBC, CMP, T4F, ESR, TSH3, ADDONUAPLUS #### [facility] [address] [place] [address] #### SPE, KARUNA,URINE, BIGG, HBCAB, ALDOLASE, RPR W RFX, HCV RX PCR, UPE RAND, HBSAB, QUANT TB, CHROMATIN, HBSAG #### [facility] ,Complete Blood Count Auto Diffon 46-16-6093Fsdg Corpuscular HGB Conc33.0 g/dL Tumbmk32.0-35.0The [facility] Physician GroupComment on above:Performed By: #### CRP, CK, CBC, CMP, T4F, ESR, TSH3, ADDONUAPLUS #### [facility] [address] [place] [address] [place] #### SPE, KARUNA,URINE, BIGG, HBCAB, ALDOLASE, RPR W RFX, HCV RX PCR, UPE RAND, HBSAB, QUANT TB, CHROMATIN, HBSAG #### [facility] ,NRBC%0.1 /100{WBC}Normal0-0.5The [facility], [facility] Physician GroupComment on above: Performed By: #### CRP, CK, CBC, CMP, T4F, ESR, TSH3, ADDONUAPLUS #### [facility] [address] [place] [address] [place] #### SPE, KARUNA,URINE, BIGG, HBCAB, ALDOLASE, RPR W RFX, HCV RX PCR, UPE RAND, HBSAB, QUANT TB, CHROMATIN, HBSAG #### [facility] ,Comprehensive Metabolic Panelon 64-99-3278Lmcsele [Mass/Vol]4.2 g/dLNormal 3.5-5.7The [facility] Physician GroupComment on above:Performed By: #### CRP, CK, CBC, CMP, T4F, ESR, TSH3, ADDONUAPLUS #### [facility] [address] [place] [address] [place] #### SPE, KARUNA,URINE, BIGG, HBCAB, ALDOLASE, RPR W RFX, HCV RX PCR, UPE RAND, HBSAB, QUANT TB, CHROMATIN, HBSAG #### [facility] ,GFR/1.73 sq M.predicted MDRD (S/P/Bld) [Vol rate/Area]mL/min/{1.73_m2}NormalThe [facility], [facility] Physician GroupComment on above:Performed By: #### CRP, CK, CBC, CMP, T4F, ESR, TSH3, ADDONUAPLUS #### [facility] [address] [place] [address] [place] #### SPE, KARUNA,URINE, BIGG, HBCAB, ALDOLASE, RPR W RFX, HCV RX PCR, UPE RAND, HBSAB, QUANT TB, CHROMATIN, HBSAG #### [facility] ,Creatine kinase [Enzymatic activity/volume] in Serum or PlasmaOrdered By: Gordy Matthew on 09-37-2182QS [Catalytic activity/Vol]25 U/GOvs26-433JdaptyspiSycamore Medical CenterComment on above:Result Comment: PERFORMED BY: [place] [address] PATHOLOGIST PATIENT REGISTRATION SUPERVISOR JOCELYN EDGE M.D.Performed By: #### CRP, CK, CBC, CMP, T4F, ESR, TSH3, ADDONUAPLUS #### [place] [address] [place] #### SPE, KARUNA,URINE, BIGG, HBCAB, ALDOLASE, RPR W RFX, HCV RX PCR, UPE RAND, HBSAB, QUANT TB, CHROMATIN, HBSAG #### [facility] ,Creatinine [Mass/volume] in Serum or PlasmaOrdered By: Gordy Matthew on 31-68-3577Utmflytatm [Mass/Vol]0.80 mg/dLNormal0.60-1.20[facility] Medical CenterComment on above:Performed By: #### CRP, CK, CBC, CMP, T4F, ESR, TSH3, ADDONUAPLUS #### [facility] [address] #### SPE, KARUNA,URINE, BIGG, HBCAB, ALDOLASE, RPR W RFX, HCV RX PCR, UPE RAND, HBSAB, QUANT TB, CHROMATIN, HBSAG #### [facility] ,Dipstick and Microscopicon 20-59-9823Fnkbzxdh,UrineRareNormalNone SeenAdventhealth Winter Park Physician GroupComment on above:Order Comment: Name Collection Type:: Clean-Voided MidstreamPerformed By: #### CRP, CK, CBC, CMP, T4F, ESR, TSH3, ADDONUAPLUS #### [facility] [address] [place] [address] [place] #### SPE, KARUNA,URINE, BIGG, HBCAB, ALDOLASE, RPR W RFX, HCV RX PCR, UPE RAND, HBSAB, QUANT TB, CHROMATIN, HBSAG #### [facility] ,Bilirubin,UrineNegativeNormalNegativeThe [facility], [facility] Physician GroupComment on above:Order Comment: Name Collection Type:: Clean-Voided MidstreamPerformed By: #### CRP, CK, CBC, CMP, T4F, ESR, TSH3, ADDONUAPLUS #### [facility] [address] [place] [address] [place] #### SPE, KARUNA,URINE, BIGG, HBCAB, ALDOLASE, RPR W RFX, HCV RX PCR, UPE RAND, HBSAB, QUANT TB, CHROMATIN, HBSAG #### [facility] ,Glucose Ql (U)NormalNormalNormalThe Firelands Physician GroupComment on above: Order Comment: Name Collection Type:: Clean-Voided MidstreamPerformed By: #### CRP, CK, CBC, CMP, T4F, ESR, TSH3, ADDONUAPLUS #### [address] #### SPE, KARUNA,URINE, BIGG, HBCAB, ALDOLASE, RPR W RFX, HCV RX PCR, UPE RAND, HBSAB, QUANT TB, CHROMATIN, HBSAG #### [facility] ,Hyaline Casts,UrineNoneNormal0-8The [facility] Physician GroupComment on above: Order Comment: Name Collection Type:: Clean-Voided MidstreamPerformed By: #### CRP, CK, CBC, CMP, T4F, ESR, TSH3, ADDONUAPLUS #### [address] #### SPE, KARUNA,URINE, BIGG, HBCAB, ALDOLASE, RPR W RFX, HCV RX PCR, UPE RAND, HBSAB, QUANT TB, CHROMATIN, HBSAG #### [facility] ,Mucus,UrineRareNormalThe [facility], [facility] Physician GroupComment on above:Order Comment: Name Collection Type:: Clean-Voided MidstreamResult Comment: PERFORMED BY: [place] [address] PATHOLOGIST PATIENT REGISTRATION SUPERVISOR JOCELYN EDGE M.D.Performed By: #### CRP, CK, CBC, CMP, T4F, ESR, TSH3, ADDONUAPLUS #### [address] #### SPE, KARUNA,URINE, IBGG, HBCAB, ALDOLASE, RPR W RFX, HCV RX PCR, UPE RAND, HBSAB, QUANT TB, CHROMATIN, HBSAG #### [facility] ,Nitrite,UrineNegativeNormalNegativeThe [facility], [facility] Physician GroupComment on above:Order Comment: Name Collection Type:: Clean-Voided MidstreamPerformed By: #### CRP, CK, CBC, CMP, T4F, ESR, TSH3, ADDONUAPLUS #### [address] #### SPE, KARUNA,URINE, BIGG, HBCAB, ALDOLASE, RPR W RFX, HCV RX PCR, UPE RAND, HBSAB, QUANT TB, CHROMATIN, HBSAG #### [facility] ,Occult Blood,UrineNegativeNormalNegativeThe [facility], [facility] Physician GroupComment on above:Order Comment: Name Collection Type:: Clean-Voided MidstreamPerformed By: #### CRP, CK, CBC, CMP, T4F, ESR, TSH3, ADDONUAPLUS #### [address] #### SPE, KARUNA,URINE, BIGG, HBCAB, ALDOLASE, RPR W RFX, HCV RX PCR, UPE RAND, HBSAB, QUANT TB, CHROMATIN, HBSAG #### [facility] ,Protein,UrineNegativeNormalNegativeThe [facility], [facility] Physician GroupComment on above:Order Comment: Name Collection Type:: Clean-Voided MidstreamPerformed By: #### CRP, CK, CBC, CMP, T4F, ESR, TSH3, ADDONUAPLUS #### [address] #### SPE, KARUNA,URINE, BIGG, HBCAB, ALDOLASE, RPR W RFX, HCV RX PCR, UPE RAND, HBSAB, QUANT TB, CHROMATIN, HBSAG #### [facility] ,RBC,[id number] [facility] Physician GroupComment on above:Order Comment: Name Collection Type:: Clean-Voided MidstreamPerformed By: #### CRP, CK, CBC, CMP, T4F, ESR, TSH3, ADDONUAPLUS #### [facility] [address] [place] [address] #### SPE, KARNUA,URINE, BIGG, HBCAB, ALDOLASE, RPR W RFX, HCV RX PCR, UPE RAND, HBSAB, QUANT TB, CHROMATIN, HBSAG #### [facility] ,Specificy [place],Urine1.189Akjnsx7.001-1.030The [facility] Comment on above:Order Comment: Name Collection Type:: Clean-Voided Midstream Performed By: #### CRP, CK, CBC, CMP, T4F, ESR, TSH3, ADDONUAPLUS #### [address] #### SPE, KARUNA,URINE, BIGG, HBCAB, ALDOLASE, RPR W RFX, HCV RX PCR, UPE RAND, HBSAB, QUANT TB, CHROMATIN, HBSAG #### [facility] ,Urobilinogen,UrineNormalNormalNormalThe [facility], [facility] Health Physician GroupComment on above:Order Comment: Name Collection Type:: Clean-Voided MidstreamPerformed By: #### CRP, CK, CBC, CMP, T4F, ESR, TSH3, ADDONUAPLUS #### [address] #### SPE, KARUNA,URINE, BIGG, HBCAB, ALDOLASE, RPR W RFX, HCV RX PCR, UPE RAND, HBSAB, QUANT TB, CHROMATIN, HBSAG #### [facility] ,WBC,[id number] [facility] Physician GroupComment on above:Order Comment: Name Collection Type:: Clean-Voided MidstreamPerformed By: #### CRP, CK, CBC, CMP, T4F, ESR, TSH3, ADDONUAPLUS #### [address] #### SPE, KARUNA,URINE, BIGG, HBCAB, ALDOLASE, RPR W RFX, HCV RX PCR, UPE RAND, HBSAB, QUANT TB, CHROMATIN, HBSAG #### [facility] ,Epithelial cells.squamous [#/area] in Urine sediment by Automated countOrdered By: Gordy Matthew on 38-12-2061Sqbixoxxgk cells.squamous Auto (Urine sed) [#/Area]N/[facility] Medical CenterErythrocyte Sedimentation Rateon 07-97-1480CNT (Bld) [Velocity]25 mm/hNormal0-29The [facility] Comment on above:Result Comment: PERFORMED BY: [place] [address] PATHOLOGIST PATIENT REGISTRATION SUPERVISOR JOCELYN EDGE M.D.Performed By: #### CRP, CK, CBC, CMP, T4F, ESR, TSH3, ADDONUAPLUS #### [address] #### SPE, KARUNA,URINE, BIGG, HBCAB, ALDOLASE, RPR W RFX, HCV RX PCR, UPE RAND, HBSAB, QUANT TB, CHROMATIN, HBSAG #### [facility] ,Erythrocyte distribution width [Ratio] by Automated countOrdered By: Gordy Matthew on 60-91-0142Aihhskcowvt distribution width (RBC) [Ratio]14.1 %Normal 11.9-15.3FParkview Health Bryan HospitalComment on above:Performed By: #### CRP, CK, CBC, CMP, T4F, ESR, TSH3, ADDONUAPLUS #### [address] #### SPE, KARUNA,URINE, BIGG, HBCAB, ALDOLASE, RPR W RFX, HCV RX PCR, UPE RAND, HBSAB, QUANT TB, CHROMATIN, HBSAG #### [facility] ,Erythrocyte sedimentation rate by Photometric methodOrdered By: Gordy Matthew on 70-24-7324JOV Photometric method (Bld) [Velocity]25 mm/hr0-29Sy[facility] Medical CenterErythrocytes [#/area] in Urine sediment by Automated countOrdered By: Gordy Matthew on 21-38-5130UAY Auto (Urine sed) [#/Area]1-2 [HPF]0-4FParkview Health Bryan HospitalErythrocytes [#/volume] in Blood by Automated countOrdered By: Gordy Matthew on 65-15-0022HEH (Bld) [#/Vol]4.71 10*6/uLNormal3.60-5.00Sycamore Medical CenterComment on above: Performed By: #### CRP, CK, CBC, CMP, T4F, ESR, TSH3, ADDONUAPLUS #### [address] #### SPE, KARUNA,URINE, BIGG, HBCAB, ALDOLASE, RPR W RFX, HCV RX PCR, UPE RAND, HBSAB, QUANT TB, CHROMATIN, HBSAG #### [facility] ,Glucose [Mass/volume] in Serum or PlasmaOrdered By: Gordy Matthew on 98-65-2063Yoywxrz [Mass/Vol]100 mg/wJAsfddn01-009InncbonfnSycamore Medical CenterComment on above:ADA recommended reference rangeRandom Glucose Reference Range is dependent on time and content of last meal. Glucose of more than 200 mg/dL in a nonstressed, ambulatory subject supports the diagnosisof Diabetes Mellitus.Result Comment: Random Glucose Reference Range is dependent on time and content of last meal. Glucose of more than 200 mg/dL in a nonstressed, ambulatory subject supports the diagnosis of Diabetes Mellitus. ADA recommended reference rangePerformed By: #### CRP, CK, CBC, CMP, T4F, ESR, TSH3, ADDONUAPLUS #### [place] [address] [place] #### SPE, KARUNA,URINE, BIGG, HBCAB, ALDOLASE, RPR W RFX, HCV RX PCR, UPE RAND, HBSAB, QUANT TB, CHROMATIN, HBSAG #### [facility] ,Glucose [Mass/volume] in Urine by Test stripOrdered By: Gordy Matthew on 57-13-8460Buyjrpp Test strip (U) [Mass/Vol]Normal mg/dLNoMansfield HospitalHematocrit [Volume Fraction] of Blood by Automated countOrdered By: Gordy Matthew on 96-78-2312Uiarnekqbm (Bld) [Volume fraction]41.1 %Normal 34.0-46.4FParkview Health Bryan HospitalComment on above:Performed By: #### CRP, CK, CBC, CMP, T4F, ESR, TSH3, ADDONUAPLUS #### [place] [id number] [place] #### SPE, KARUNA,URINE, BIGG, HBCAB, ALDOLASE, RPR W RFX, HCV RX PCR, UPE RAND, HBSAB, QUANT TB, CHROMATIN, HBSAG #### [facility] ,Hemoglobin Test strip Ql (U)Ordered By: Gordy Matthew on 06-70-0978Bzmngdnepl Ql (U)NegativeNegativeSycamore Medical CenterHemoglobin [Mass/volume] in BloodOrdered By: Gordy Matthew on 03-51-4370Njvddmbdgi (Bld) [Mass/Vol]13.6 g/uDVkeypm38.8-15.4FParkview Health Bryan HospitalComment on above:Performed By: #### CRP, CK, CBC, CMP, T4F, ESR, TSH3, ADDONUAPLUS #### [address] #### SPE, KARUNA,URINE, BIGG, HBCAB, ALDOLASE, RPR W RFX, HCV RX PCR, UPE RAND, HBSAB, QUANT TB, CHROMATIN, HBSAG #### [facility] ,Hep C Ab wRfx to Qnt PCRon 02-88-6503Hulwzuthf C Virus AntibodyNon-Reactive NormalNon ReactiveThe [facility], [facility] Physician GroupComment on above:Performed By: #### CRP, CK, CBC, CMP, T4F, ESR, TSH3, ADDONUAPLUS #### [facility] [address] [place] [address] #### SPE, KARUNA,URINE, BIGG, HBCAB, ALDOLASE, RPR W RFX, HCV RX PCR, UPE RAND, HBSAB, QUANT TB, CHROMATIN, HBSAG #### [facility] ,Interpretation Hepatitis CCommentNormal.The [facility] Health Physician GroupComment on above:Result Comment: Not infected with HCV unless early or acute infection is suspected (which may be delayed in an immunocompromised individual), or other evidence exists to indicate HCV infection.Performed By: #### CRP, CK, CBC, CMP, T4F, ESR, TSH3, ADDONUAPLUS #### [address] [address] [place] #### SPE, KARUNA,URINE, BIGG, HBCAB, ALDOLASE, RPR W RFX, HCV RX PCR, UPE RAND, HBSAB, QUANT TB, CHROMATIN, HBSAG #### [facility] ,Hepatitis B Core Antibodyon 44-01-4031Beppfhivf B Core AntibodyNegativeNormal NegativeThe [facility], [facility] Health Physician GroupComment on above:Result Comment: Performed at: [facility] [id number] Client Program Manager: Jasiel Key PhD, Phone: [phone] By: #### CRP, CK, CBC, CMP, T4F, ESR, TSH3, ADDONUAPLUS #### [address] #### SPE, KARUNA,URINE, BIGG, HBCAB, ALDOLASE, RPR W RFX, HCV RX PCR, UPE RAND, HBSAB, QUANT TB, CHROMATIN, HBSAG #### [facility] ,Hepatitis B Surface Antibodyon 87-05-1370Qgrgeqpgz B Surface Antibody Non-ReactiveNormal.The [facility], [facility] Physician GroupComment on above:Result Comment: Non Reactive: Not immune to HBV infection. Equivocal: Unable to determine if anti-HBs is present at levels consistent with immunity. Reactive: Anti-HBs concentration detected at greater than 10 mIU/mL. Individual is considered to be immune to infection with HBV.Performed By: #### CRP, CK, CBC, CMP, T4F, ESR, TSH3, ADDONUAPLUS #### [address] #### SPE, KARUNA,URINE, BIGG, HBCAB, ALDOLASE, RPR W RFX, HCV RX PCR, UPE RAND, HBSAB, QUANT TB, CHROMATIN, HBSAG #### [facility] ,Hepatitis B Surface Antigenon 33-85-7466CXeLg ScreenNegativeNormalNegativeThe [facility], [facility] Health Physician GroupComment on above:Result Comment: PERFORMED BY: [place] [address] PATHOLOGIST PATIENT REGISTRATION SUPERVISOR JOCELYN EDGE M.D.Performed By: #### CRP, CK, CBC, CMP, T4F, ESR, TSH3, ADDONUAPLUS #### [place] [address] [place] #### SPE, KARUNA,URINE, BIGG, HBCAB, ALDOLASE, RPR W RFX, HCV RX PCR, UPE RAND, HBSAB, QUANT TB, CHROMATIN, HBSAG #### [facility] ,Hyaline casts [#/area] in Urine sediment by Automated countOrdered By: Gordy Matthew on 74-93-1677Dlolzuu casts Auto (Urine sed) [#/Area]None [LPF]0-8 [facility] Medical CenterImmunofixation, (KARUNA), Urineon 03-09-2024 Immunofixation, (KARUNA), UrineCommentNormal.The [facility], [facility] Health Physician GroupComment on above:Result Comment: No monoclonality detected. Performed at: - [facility] [id number] Client Program Manager: Jasiel Key PhD, Phone: [phone] By: #### CRP, CK, CBC, CMP, T4F, ESR, TSH3, ADDONUAPLUS #### [address] #### SPE, KARUNA,URINE, BIGG, HBCAB, ALDOLASE, RPR W RFX, HCV RX PCR, UPE RAND, HBSAB, QUANT TB, CHROMATIN, HBSAG #### [facility] ,Ketones [Presence] in Urine by Test stripOrdered By: Gordy Matthew on 25-40-9238Xlwxxcb Ql (U)NegativeNormalNegativeSycamore Medical Center Comment on above:Order Comment: Name Collection Type:: Clean-Voided Midstream Performed By: #### CRP, CK, CBC, CMP, T4F, ESR, TSH3, ADDONUAPLUS #### [place] [address] [place] #### SPE, KARUNA,URINE, BIGG, HBCAB, ALDOLASE, RPR W RFX, HCV RX PCR, UPE RAND, HBSAB, QUANT TB, CHROMATIN, HBSAG #### [facility] ,Leukocyte esterase [Presence] in Urine by Test stripOrdered By: Gordy Matthew on 08-71-4808Dwbyturor esterase Test strip Ql (U)NegativeNormalNegativeSycamore Medical CenterComment on above:Order Comment: Name Collection Type:: Clean-Voided MidstreamPerformed By: #### CRP, CK, CBC, CMP, T4F, ESR, TSH3, ADDONUAPLUS #### [facility] [address] [place] [address] #### SPE, KARUNA,URINE, BIGG, HBCAB, ALDOLASE, RPR W RFX, HCV RX PCR, UPE RAND, HBSAB, QUANT TB, CHROMATIN, HBSAG #### [facility] ,Leukocytes [#/area] in Urine sediment by Automated countOrdered By: Gordy Matthew on 53-95-8658SQF Auto (Urine sed) [#/Area]3-4 [HPF]0-4FParkview Health Bryan HospitalLeukocytes [#/volume] corrected for nucleated erythrocytes in Blood by Automated counOrdered By: Gordy Matthew on 78-02-0281ZUN corrected for nucl RBC Auto (Bld) [#/Vol]11.4 10*3/uL3.8-11.6FParkview Health Bryan HospitalLeukocytes [#/volume] in Blood by Automated countOrdered By: Gordy Matthew on 34-28-0525REX (Bld) [#/Vol]11.4 10*3/uLNormal3.8-11.6FParkview Health Bryan HospitalComment on above:Performed By: #### CRP, CK, CBC, CMP, T4F, ESR, TSH3, ADDONUAPLUS #### [facility] [address] [place] [address] [place] #### SPE, KARUNA,URINE, BIGG, HBCAB, ALDOLASE, RPR W RFX, HCV RX PCR, UPE RAND, HBSAB, QUANT TB, CHROMATIN, HBSAG #### [facility] ,Lymphocytes [#/volume] in Blood by Automated countOrdered By: Gordy Farooqrow on 93-56-8989Jzqpriakjia (Bld) [#/Vol]2.8 10*3/uLNormal1.00-4.8Sy[facility] Medical CenterComment on above:Performed By: #### CRP, CK, CBC, CMP, T4F, ESR, TSH3, ADDONUAPLUS #### [address] #### SPE, KARUNA,URINE, BIGG, HBCAB, ALDOLASE, RPR W RFX, HCV RX PCR, UPE RAND, HBSAB, QUANT TB, CHROMATIN, HBSAG #### [facility] ,Lymphocytes/100 leukocytes in Blood by Automated countOrdered By: Gordy Matthew on 50-56-1759Axezcljpzke/100 WBC (Bld)24.4 %Normal.[facility] Medical CenterComment on above:Performed By: #### CRP, CK, CBC, CMP, T4F, ESR, TSH3, ADDONUAPLUS #### [place] [address] [place] #### SPE, KARUNA,URINE, BIGG, HBCAB, ALDOLASE, RPR W RFX, HCV RX PCR, UPE RAND, HBSAB, QUANT TB, CHROMATIN, HBSAG #### [facility] ,MCH [Entitic mass] by Automated countOrdered By: Gordy Matthew on 03-09-2024 MCH (RBC) [Entitic mass]28.8 kxOfuzvo88.7-34.3FParkview Health Bryan Hospital Comment on above:Performed By: #### CRP, CK, CBC, CMP, T4F, ESR, TSH3, ADDONUAPLUS #### [place] [address] [place] #### SPE, KARUNA,URINE, BIGG, HBCAB, ALDOLASE, RPR W RFX, HCV RX PCR, UPE RAND, HBSAB, QUANT TB, CHROMATIN, HBSAG #### [facility] ,MCHC Auto (RBC) [Mass/Vol]Ordered By: Gordy Matthew on 70-91-9141UUQO (RBC) [Mass/Vol]33.0 g/dL32.0-35.0Sy[facility] Medical CenterMCV [Entitic volume] by Automated countOrdered By: Gordy Farooqrow on 59-62-7730DJA (RBC) [Entitic vol]87.3 dXOgkfaj39-484DnafidqrhSycamore Medical CenterComment on above:Performed By: #### CRP, CK, CBC, CMP, T4F, ESR, TSH3, ADDONUAPLUS #### [facility] [address] [place] [address] [place] #### SPE, KARUNA,URINE, BIGG, HBCAB, ALDOLASE, RPR W RFX, HCV RX PCR, UPE RAND, HBSAB, QUANT TB, CHROMATIN, HBSAG #### [facility] ,Mucus [Presence] in Urine by AutomatedOrdered By: Gordy Matthew on 03-09-2024 Mucus Auto Ql (U)Rare [LPF][facility] Medical CenterNeutrophils [#/volume] in Blood by Automated countOrdered By: Gordy Matthew on 03-09-2024 Neutrophils (Bld) [#/Vol]7.5 10*3/uLNormal1.8-7.7FParkview Health Bryan HospitalComment on above:Performed By: #### CRP, CK, CBC, CMP, T4F, ESR, TSH3, ADDONUAPLUS #### [facility] [address] [place] [address] [place] #### SPE, KARUNA,URINE, BIGG, HBCAB, ALDOLASE, RPR W RFX, HCV RX PCR, UPE RAND, HBSAB, QUANT TB, CHROMATIN, HBSAG #### [facility] ,Nitrite Test strip Ql (U)Ordered By: Gordy Matthew on 16-76-4317Bncuhia Ql (U) NegativeNegativeSycamore Medical CenterNo Panel InformationOrdered By: Gordy Matthew on 16-46-6726Touqpdgbg GFR (CKD-EPI)> 60.0 mL/MinSycamore Medical CenterPharmacy Creatinine Clearance (ChemN/[facility] Medical CenterNucleated erythrocytes [Presence] in Blood by Automated count Ordered By: Gordy Matthew on 86-24-1703Nrygmzmwx RBC Auto Ql (Bld)0.1 /100{WBC} 0-0.5FParkview Health Bryan HospitalPlatelet mean volume [Entitic volume] in Blood by Automated countOrdered By: Gordy Matthew on 00-97-9589Urkvizbz mean volume (Bld) [Entitic vol]8.3 fLNormal6.3-10.7FParkview Health Bryan Hospital Comment on above:Performed By: #### CRP, CK, CBC, CMP, T4F, ESR, TSH3, ADDONUAPLUS #### [address] #### SPE, KARUNA,URINE, BIGG, HBCAB, ALDOLASE, RPR W RFX, HCV RX PCR, UPE RAND, HBSAB, QUANT TB, CHROMATIN, HBSAG #### [facility] ,Platelets [#/volume] in Blood by Automated countOrdered By: Gordy Matthew on 79-10-6977Gfbjvbajf (Bld) [#/Vol]332 10*3/nJShuzyj149-775WeejxrtidSycamore Medical CenterComment on above:Performed By: #### CRP, CK, CBC, CMP, T4F, ESR, TSH3, ADDONUAPLUS #### [place] [address] [place] #### SPE, KARUNA,URINE, BIGG, HBCAB, ALDOLASE, RPR W RFX, HCV RX PCR, UPE RAND, HBSAB, QUANT TB, CHROMATIN, HBSAG #### [facility] ,Potassium [Moles/volume] in Serum or PlasmaOrdered By: Gordy Matthew on 84-71-7296Rpwsmxavz [Moles/Vol]4.2 mmol/LNormal3.5-5.1FParkview Health Bryan HospitalComment on above:Performed By: #### CRP, CK, CBC, CMP, T4F, ESR, TSH3, ADDONUAPLUS #### [place] [address] [place] #### SPE, KARUNA,URINE, BIGG, HBCAB, ALDOLASE, RPR W RFX, HCV RX PCR, UPE RAND, HBSAB, QUANT TB, CHROMATIN, HBSAG #### [facility] ,Protein Electro, Random Urineon 48-23-4585Awflbkc, Urine15.5 %Normal.The [facility] Health Physician GroupComment on above:Performed By: #### CRP, CK, CBC, CMP, T4F, ESR, TSH3, ADDONUAPLUS #### [address] #### SPE, KARUNA,URINE, BIGG, HBCAB, ALDOLASE, RPR W RFX, HCV RX PCR, UPE RAND, HBSAB, QUANT TB, CHROMATIN, HBSAG #### [facility] ,Gzylu-9-Ckwmtcdj, Urine5.6 %Normal.The [facility], [facility] Health Physician GroupComment on above:Performed By: #### CRP, CK, CBC, CMP, T4F, ESR, TSH3, ADDONUAPLUS #### [address] #### SPE, KARUNA,URINE, BIGG, HBCAB, ALDOLASE, RPR W RFX, HCV RX PCR, UPE RAND, HBSAB, QUANT TB, CHROMATIN, HBSAG #### [facility] ,Vllvz-2-Uueoocwn, Urine21.4 %Normal.The [facility] Health Physician GroupComment on above:Performed By: #### CRP, CK, CBC, CMP, T4F, ESR, TSH3, ADDONUAPLUS #### [address] #### SPE, KARUNA,URINE, BIGG, HBCAB, ALDOLASE, RPR W RFX, HCV RX PCR, UPE RAND, HBSAB, QUANT TB, CHROMATIN, HBSAG #### [facility] ,Beta Globulin, Urine31.2 %Normal.The [facility], [facility] Health Physician GroupComment on above: Performed By: #### CRP, CK, CBC, CMP, T4F, ESR, TSH3, ADDONUAPLUS #### [address] [place] [address] [place] #### SPE, KARUNA,URINE, BIGG, HBCAB, ALDOLASE, RPR W RFX, HCV RX PCR, UPE RAND, HBSAB, QUANT TB, CHROMATIN, HBSAG #### [facility] ,Gamma Globulin, Urine26.4 %Normal.The [facility], [facility] Health Physician GroupComment on above:Performed By: #### CRP, CK, CBC, CMP, T4F, ESR, TSH3, ADDONUAPLUS #### [address] #### SPE, KARUNA,URINE, BIGG, HBCAB, ALDOLASE, RPR W RFX, HCV RX PCR, UPE RAND, HBSAB, QUANT TB, CHROMATIN, HBSAG #### [facility] ,M-Leonid %Not ObservedNormalNot ObservedThe [facility], [facility] Health Physician GroupComment on above:Performed By: #### CRP, CK, CBC, CMP, T4F, ESR, TSH3, ADDONUAPLUS #### [address] #### SPE, KARUNA,URINE, BIGG, HBCAB, ALDOLASE, RPR W RFX, HCV RX PCR, UPE RAND, HBSAB, QUANT TB, CHROMATIN, HBSAG #### [facility] ,Please Note:CommentNormal.The [facility], [facility] Health Physician GroupComment on above:Result Comment: Protein electrophoresis scan will follow via computer, mail, or race relations professor delivery. PERFORMED BY: [place] [address] PATHOLOGIST PATIENT REGISTRATION SUPERVISOR JOCELYN EDGE M.D.Performed By: #### CRP, CK, CBC, CMP, T4F, ESR, TSH3, ADDONUAPLUS #### [address] #### SPE, KARUNA,URINE, BIGG, HBCAB, ALDOLASE, RPR W RFX, HCV RX PCR, UPE RAND, HBSAB, QUANT TB, CHROMATIN, HBSAG #### [facility] ,Protein (U) [Mass/Vol]4.1 mg/dLNormalNot Estab.The [facility] Comment on above:Performed By: #### CRP, CK, CBC, CMP, T4F, ESR, TSH3, ADDONUAPLUS #### [address] #### SPE, KARUNA,URINE, BIGG, HBCAB, ALDOLASE, RPR W RFX, HCV RX PCR, UPE RAND, HBSAB, QUANT TB, CHROMATIN, HBSAG #### [facility] ,Protein Electrophoresis, Serumon 68-28-2227Ilexvtt [Mass/Vol]3.8 g/dLNormal 2.9-4.4The [facility], [facility] Physician GroupComment on above:Performed By: #### CRP, CK, CBC, CMP, T4F, ESR, TSH3, ADDONUAPLUS #### [address] #### SPE, KARUNA,URINE, BIGG, HBCAB, ALDOLASE, RPR W RFX, HCV RX PCR, UPE RAND, HBSAB, QUANT TB, CHROMATIN, HBSAG #### [facility] ,Albumin/Globulin [Mass ratio]1.2 {ratio}Normal0.7-1.7The [facility], [facility] Health Physician GroupComment on above:Performed By: #### CRP, CK, CBC, CMP, T4F, ESR, TSH3, ADDONUAPLUS #### [place] [address] [place] #### SPE, KARUNA,URINE, BIGG, HBCAB, ALDOLASE, RPR W RFX, HCV RX PCR, UPE RAND, HBSAB, QUANT TB, CHROMATIN, HBSAG #### [facility] ,Gctlu-9-Ypuombef5.2 g/dLNormal0.0-0.4The [facility], [facility] Physician GroupComment on above:Performed By: #### CRP, CK, CBC, CMP, T4F, ESR, TSH3, ADDONUAPLUS #### [place] [address] [place] #### SPE, KARUNA,URINE, BIGG, HBCAB, ALDOLASE, RPR W RFX, HCV RX PCR, UPE RAND, HBSAB, QUANT TB, CHROMATIN, HBSAG #### [facility] ,Leilm-8-Ykategda7.7 g/dLNormal0.4-1.0The [facility] GroupComment on above:Performed By: #### CRP, CK, CBC, CMP, T4F, ESR, TSH3, ADDONUAPLUS #### [address] #### SPE, KARUNA,URINE, BIGG, HBCAB, ALDOLASE, RPR W RFX, HCV RX PCR, UPE RAND, HBSAB, QUANT TB, CHROMATIN, HBSAG #### [facility] ,Beta Globulin1.1 g/dLNormal0.7-1.3The [facility] Physician GroupComment on above:Performed By: #### CRP, CK, CBC, CMP, T4F, ESR, TSH3, ADDONUAPLUS #### [address] #### SPE, KARUNA,URINE, BIGG, HBCAB, ALDOLASE, RPR W RFX, HCV RX PCR, UPE RAND, HBSAB, QUANT TB, CHROMATIN, HBSAG #### [facility] ,Gamma Globulin1.3 g/dLNormal0.4-1.8[facility] Physician GroupComment on above:Performed By: #### CRP, CK, CBC, CMP, T4F, ESR, TSH3, ADDONUAPLUS #### [address] #### SPE, KARUNA,URINE, BIGG, HBCAB, ALDOLASE, RPR W RFX, HCV RX PCR, UPE RAND, HBSAB, QUANT TB, CHROMATIN, HBSAG #### [facility] ,Globulin (S) [Mass/Vol]3.3 g/dLNormal2.2-3.9[facility] Comment on above:Performed By: #### CRP, CK, CBC, CMP, T4F, ESR, TSH3, ADDONUAPLUS #### [facility] [address] [place] [address] [place] #### SPE, KARUNA,URINE, BIGG, HBCAB, ALDOLASE, RPR W RFX, HCV RX PCR, UPE RAND, HBSAB, QUANT TB, CHROMATIN, HBSAG #### [facility] ,M-SpikeNot ObservedNormalNot ObservedThe [facility], [facility] Physician GroupComment on above:Performed By: #### CRP, CK, CBC, CMP, T4F, ESR, TSH3, ADDONUAPLUS #### [place] [address] [place] #### SPE, KARUNA,URINE, BIGG, HBCAB, ALDOLASE, RPR W RFX, HCV RX PCR, UPE RAND, HBSAB, QUANT TB, CHROMATIN, HBSAG #### [facility] ,SPE-NoteCommentNormal.The [facility], [facility] Physician GroupComment on above:Result Comment: Protein electrophoresis scan will follow via computer, mail, or race relations professor delivery. Performed at: [facility] [id number] Client Program Manager: Jasiel Key PhD, Phone: [phone] By: #### CRP, CK, CBC, CMP, T4F, ESR, TSH3, ADDONUAPLUS #### [address] #### SPE, KARUNA,URINE, BIGG, HBCAB, ALDOLASE, RPR W RFX, HCV RX PCR, UPE RAND, HBSAB, QUANT TB, CHROMATIN, HBSAG #### [facility] ,Protein Test strip (U) [Mass/Vol]Ordered By: Gordy Matthew on 03-09-2024 Protein (U) [Mass/Vol]NegativeNegativeSycamore Medical CenterProtein [Mass/volume] in Serum or PlasmaOrdered By: Gordy Matthew on [id number] [Mass/Vol]7.1 g/dLNormal6.0-8.5FParkview Health Bryan HospitalComment on above:Performed By: #### CRP, CK, CBC, CMP, T4F, ESR, TSH3, ADDONUAPLUS #### [address] #### SPE, KARUNA,URINE, BIGG, HBCAB, ALDOLASE, RPR W RFX, HCV RX PCR, UPE RAND, HBSAB, QUANT TB, CHROMATIN, HBSAG #### [facility] ,QuantiFERON TB Goldon [id number] CriteriaCommentNormal.The [facility], [facility] Physician GroupComment on above:Result Comment: QuantiFERON-TB Gold Plus is a qualitative indirect test for M tuberculosis infection (including disease) and is intended for use in conjunction with risk assessment, radiography, and other medical and diagnostic evaluations. The QuantiFERON-TB Gold Plus result is determined by subtracting the Nil value from either TB antigen (Ag) value. The Mitogen tube serves as a control for the test.Performed By: #### CRP, CK, CBC, CMP, T4F, ESR, TSH3, ADDONUAPLUS #### [address] #### SPE, KARUNA,URINE, BIGG, HBCAB, ALDOLASE, RPR W RFX, HCV RX PCR, UPE RAND, HBSAB, QUANT TB, CHROMATIN, HBSAG #### [facility] ,Quant TB Ag Value0.00Normal.The [facility] Physician GroupComment on above: Performed By: #### CRP, CK, CBC, CMP, T4F, ESR, TSH3, ADDONUAPLUS #### [address] #### SPE, KARUNA,URINE, BIGG, HBCAB, ALDOLASE, RPR W RFX, HCV RX PCR, UPE RAND, HBSAB, QUANT TB, CHROMATIN, HBSAG #### [facility] ,Quant TB Gold PlusNegativeNormalNegativeThe [facility], [facility] Physician GroupComment on above:Result Comment: No response to M tuberculosis antigens detected. Infection with [...] interferon gamma. Chemiluminescence immunoassay methodology Performed at: [address] [id number] Client Program Manager: Jasiel Key PhD, Phone: [phone] PERFORMED BY: [place] [address] PATHOLOGIST PATIENT REGISTRATION SUPERVISOR JOCELYN EDGE M.D.Performed By: #### CRP, CK, CBC, CMP, T4F, ESR, TSH3, ADDONUAPLUS #### [address] #### SPE, KARUNA,URINE, BIGG, HBCAB, ALDOLASE, RPR W RFX, HCV RX PCR, UPE RAND, HBSAB, QUANT TB, CHROMATIN, HBSAG #### [facility] ,Quant TB2 Ag Value0.00Normal.The [facility] Physician GroupComment on above: Performed By: #### CRP, CK, CBC, CMP, T4F, ESR, TSH3, ADDONUAPLUS #### [place] [address] [place] #### SPE, KARUNA,URINE, BIGG, HBCAB, ALDOLASE, RPR W RFX, HCV RX PCR, UPE RAND, HBSAB, QUANT TB, CHROMATIN, HBSAG #### [facility] ,Quantiferon Nil Value0.00Normal.The [facility] Physician GroupComment on above: Performed By: #### CRP, CK, CBC, CMP, T4F, ESR, TSH3, ADDONUAPLUS #### [place] [address] [place] #### SPE, KARUNA,URINE, BIGG, HBCAB, ALDOLASE, RPR W RFX, HCV RX PCR, UPE RAND, HBSAB, QUANT TB, CHROMATIN, HBSAG #### [facility] ,Quantiferon TB Mitogen>10.00Normal.The [facility] Physician GroupComment on above:Performed By: #### CRP, CK, CBC, CMP, T4F, ESR, TSH3, ADDONUAPLUS #### [address] #### SPE, KARUNA,URINE, BIGG, HBCAB, ALDOLASE, RPR W RFX, HCV RX PCR, UPE RAND, HBSAB, QUANT TB, CHROMATIN, HBSAG #### [facility] ,RPR w/rfx to Quant TP Abson 81-45-7638FQD, Rfx Quant RPRNon-ReactiveNormalNon ReactiveThe [facility], [facility] Physician GroupComment on above:Result Comment: Performed at: - [facility] [address] [id number] Client Program Manager: Jasiel Key PhD, Phone: [phone] PERFORMED BY: [place] [address] PATHOLOGIST PATIENT REGISTRATION SUPERVISOR JOCELYN EDGE M.D.Performed By: #### CRP, CK, CBC, CMP, T4F, ESR, TSH3, ADDONUAPLUS #### [address] #### SPE, KARUNA,URINE, BIGG, HBCAB, ALDOLASE, RPR W RFX, HCV RX PCR, UPE RAND, HBSAB, QUANT TB, CHROMATIN, HBSAG #### [facility] ,Serum globulin measurement by calculation (mass/volume)Ordered By: Gordy Matthew on 51-56-7308Epjenide (S) [Mass/Vol]2.9 g/dLNoMansfield HospitalComment on above:Performed By: #### CRP, CK, CBC, CMP, T4F, ESR, TSH3, ADDONUAPLUS #### [address] #### SPE, KARUNA,URINE, BIGG, HBCAB, ALDOLASE, RPR W RFX, HCV RX PCR, UPE RAND, HBSAB, QUANT TB, CHROMATIN, HBSAG #### [facility] ,Serum or plasma albumin/globulin mass ratioOrdered By: Gordy Matthew on 13-15-7393Fgttakm/Globulin [Mass ratio]1.4 {ratio}[facility]ville HospitalComment on above:Performed By: #### CRP, CK, CBC, CMP, T4F, ESR, TSH3, ADDONUAPLUS #### [facility] [address] [place] [address] [place] #### SPE, KARUNA,URINE, BIGG, HBCAB, ALDOLASE, RPR W RFX, HCV RX PCR, UPE RAND, HBSAB, QUANT TB, CHROMATIN, HBSAG #### [facility] ,Serum or plasma anion gap determinationOrdered By: Gordy Matthew on 03-09-2024 Anion gap [Moles/Vol]9.8 mmol/LNormal6.0-15.0[facility] Comment on above:Performed By: #### CRP, CK, CBC, CMP, T4F, ESR, TSH3, ADDONUAPLUS #### [place] [address] [place] #### SPE, KARUNA,URINE, BIGG, HBCAB, ALDOLASE, RPR W RFX, HCV RX PCR, UPE RAND, HBSAB, QUANT TB, CHROMATIN, HBSAG #### [facility] ,Sodium [Moles/volume] in Serum or PlasmaOrdered By: Gordy Matthew on 98-45-8343Gycdld [Moles/Vol]139 mmol/RAsixhg229-465HqduhewwaSycamore Medical CenterComment on above:Performed By: #### CRP, CK, CBC, CMP, T4F, ESR, TSH3, ADDONUAPLUS #### [facility] [address] [place] [address] [place] #### SPE, KARUNA,URINE, BIGG, HBCAB, ALDOLASE, RPR W RFX, HCV RX PCR, UPE RAND, HBSAB, QUANT TB, CHROMATIN, HBSAG #### [facility] ,Specific gravity Test strip (U) [Rel density]Ordered By: Gordy Matthew on 66-47-9614Czifncyd gravity (U) [Rel density]1.0131.001-1.030[facility] Medical CenterThyrotropin [Units/volume] in Serum or PlasmaOrdered By: Gordy Matthew on 74-25-9596UND Qn2.78 m[IU]/LNormal0.45-5.33[facility] CenterComment on above:Result Comment: PERFORMED BY: [place] [address] PATHOLOGIST PATIENT REGISTRATION SUPERVISOR JOCELYN EDGE M.D.Performed By: #### CRP, CK, CBC, CMP, T4F, ESR, TSH3, ADDONUAPLUS #### [address] #### SPE, KARUNA,URINE, BIGG, HBCAB, ALDOLASE, RPR W RFX, HCV RX PCR, UPE RAND, HBSAB, QUANT TB, CHROMATIN, HBSAG #### [facility] ,Thyroxine (T4) free [Mass/volume] in Serum or PlasmaOrdered By: Gordy Matthew on 30-88-1583Ftqm T4 [Mass/Vol]0.78 ng/dLNormal0.61-1.12[facility] CenterComment on above:Performed By: #### CRP, CK, CBC, CMP, T4F, ESR, TSH3, ADDONUAPLUS #### [address] #### SPE, KARUNA,URINE, BIGG, HBCAB, ALDOLASE, RPR W RFX, HCV RX PCR, UPE RAND, HBSAB, QUANT TB, CHROMATIN, HBSAG #### [facility] ,Urea nitrogen [Mass/volume] in Serum or PlasmaOrdered By: Gordy Matthew on 52-86-0779Ofju nitrogen [Mass/Vol]15 mg/dLNormal01-06[facility] CenterComment on above:Performed By: #### CRP, CK, CBC, CMP, T4F, ESR, TSH3, ADDONUAPLUS #### [facility] [address] [place] [address] #### SPE, KARUNA,URINE, BIGG, HBCAB, ALDOLASE, RPR W RFX, HCV RX PCR, UPE RAND, HBSAB, QUANT TB, CHROMATIN, HBSAG #### [facility] ,Urine appearanceOrdered By: Gordy Farooqrow on 72-29-1861Vbkckdwlxn (U)Cloudy Critically abnormalCleUniversity Hospitals Geneva Medical CenterComment on above:Order Comment: Name Collection Type:: Clean-Voided MidstreamPerformed By: #### CRP, CK, CBC, CMP, T4F, ESR, TSH3, ADDONUAPLUS #### [address] #### SPE, KARUNA,URINE, BIGG, HBCAB, ALDOLASE, RPR W RFX, HCV RX PCR, UPE RAND, HBSAB, QUANT TB, CHROMATIN, HBSAG #### [facility] ,Urobilinogen Test strip (U) [Mass/Vol]Ordered By: Gordy Matthew on 03-09-2024 Urobilinogen (U) [Mass/Vol]Normal mg/dLNormalSycamore Medical CenterpH of Urine by Test stripOrdered By: Gordy Matthew on 59-59-9622aA (U)7.0 [pH] Normal5.0-9.0[facility] CenterComment on above:Order Comment: Name Collection Type:: Clean-Voided MidstreamPerformed By: #### CRP, CK, CBC, CMP, T4F, ESR, TSH3, ADDONUAPLUS #### [address] #### SPE, KARUNA,URINE, BIGG, HBCAB, ALDOLASE, RPR W RFX, HCV RX PCR, UPE RAND, HBSAB, QUANT TB, CHROMATIN, HBSAG #### [facility] ,CT Neck W contrast Christine 17-11[place] [address] [place] Scan Report Signed Patient: MERCEDES EAGLE MR#: [id number] : 1955 Acct:[id number] Age/Sex: 68 / F ADM Date: 01/11/24 Loc: CT Attending Dr: Eugenio Garcia M.D. Ordering Physician: Eugenio Garcia M.D. Date of Service: 01/11/24 Procedure(s): CT soft tissue neck w con Accession Number(s): [id number] cc: Aretha Brewster M.D. [place] [id number] Patient Name: MERCEDES EAGLE MRN: [facility]:[id number] date: 1955 Sex: F Assigned Patient Location: CT Current Patient Location: Accession/Order Number: [id number] Exam Date: 01/11/2024 13:24 Report Date: 01/12/2024 10:57 At the request of: EUGENIO GARCIA Procedure: CT soft tissue neck w con [...] evidence of sialolithiasis. Electronically authenticated by: EPI MANDEL Date: 01/12/2024 10:57 Dictated By: Epi Mandel M.D. Signed By: 01/12/24 1100 DD/ 1057 TD/TT: Astrophysics Teacher:TBHRadiology, Radiologist, - 01/12/2024 [place] [address] CT Scan Report Signed Patient: MERCEDES EAGLE MR#: [id number] : 1955 Acct:[id number] Age/Sex: 68 / F ADM Date: 01/11/24 Loc: CT Attending Dr: Eugenio Garcia M.D. Ordering Physician: Eugenio Garcia M.D. Date of Service: 01/11/24 Procedure(s): CT soft tissue neck w con Accession Number(s): [id number] cc: Aretha Brewster M.D. [place] [id number] Patient Name: MERCEDES EAGLE MRN: [facility]:[id number] date: 1955 Sex: F Assigned Patient Location: CT Current Patient Location: Accession/Order Number: [id number] Exam Date: 01/11/2024 13:24 Report Date: 01/12/2024 10:57 At the request of: EUGENIO GARCIA Procedure: CT soft tissue neck w con [...] evidence of sialolithiasis. Electronically authenticated by: EPI MANDEL Date: 01/12/2024 10:57 Dictated By: Epi Mandel M.D. Signed By: 01/12/24 1100 DD/ 1057 TD/TT: Astrophysics Teacher: ROBBIE HealthcareRadiology Study observation (narrative)NOM HealthcareCT Neck W contrast IVOrdered By: Radiologist Radiology on 67-52-4639QTSY Healthcare Work Phone: cOVID/FLU/RSV RT-PCRon 07-05-5450MZAH-CoV-2 (COVID-19) RNA VIVEK+probe Ql (Unsp spec)NegativeNost. [facility] EDITD Other COVID/FLU/RSV RT-PCRNegativeNost. [facility] EDITD Other COVID/FLU/RSV RT-PCRPositiveNost. [facility] EDITD Other Outside Colonoscopyon 37-64-1097Oohtovs Colonoscopy [id number]#1.00CD:127Cinthya [facility] HospitalRemco[facility] 10-03-0431Tewkqsjgk From: Kisha Sameul LPN To: GSN - Clinical; Sent: 10/02/2022 08:43:18 EDT Show up: 08/31/2032 07:00:00 EDT Subject: colonoscopy recall Due Date/Time: 10/01/2032 07:00:00 EDT Reminder/Recall Patient is due for screening colonoscopy 10/01/2032.[facility] AndersonConsent for Procedure/Surgeryon 84-74-8543Avnrqnm for Procedure/Surgery [id number]#1.00CD:[address] [place], [place] [address]Facesheeton 53-69-0705Btdvkowzd [id number]#1.00CD:[address] [place], [place] [address]Pre-Certification Formon 54-30-5049Fpj-Certification Form [id number]#1.00CD:[address] [place], [place] [address]Ambulatory Visit Summaryon 17-24-9275Pqgfbjghjj Visit Summary MERCEDES EAGLE :1955 Visit Date:09/10/2022 [...] - Esophagogastroduodenoscopy, EGD - Esophagogastroduodenoscopy, Tubal ligation. Discharge Vitals Heart Rate (Peripheral) [...] (gastroesophageal reflux disease) Osteoarthritis Seasonal allergic rhinitis [facility] AndersonPhysician Referralon 08-06-2022 Physician [id number]#1.00CD:127Normal [facility] HospitalFollow-Upon 36-70-8306Qrwznb-[id number] Mercedes Eagle 1955 F Date Provider Department Center 05/15/2022 TIMMY ROMAN MP ORTHO MPORTHO Family History Problem Relation Age of Onset Diabetes Mother Heart disease Mother Arthritis Mother No Known Problems Father Family Status - Relation Status Age at Mother Father Level of Service:36100 [place] OFFICE/OUTPATIENT ESTABLISHED LOW MDM 20-29 MIN Reason for Visit and Comments: Follow-up [218218] - Yearly follow upNormalUniversity of Chi St. [facility] HospitalXR DEXA BONE DENSITYon 82-27-4566MQ DEXA BONE DENSITYEXAMINATION: XR DEXA BONE DENSITY, 04/28/2022 8:37 AM [...] Electronically authenticated by: STEPHANIE RAYA Date: 2022-04-28 17:04[facility] HospitalMG MAMM SCREEN 3D ARCELIA CADon 50-00-3125OJ MAMM SCREEN 3D ARCELIA CAD Patient: MERCEDES EAGLE Exam Date: 04/23/2022 : 1955 Gender:F Ordering : DR ARETHA BREWSTER . Admission #: [id number] Family : Order #: [id number] CLICK HERE TO VIEW EXAM RADIOLOGY REPORT PROCEDURE: MAMMOGRAM SCREENING 3D BILATERAL CAD COMPARISON: MG MAMM SCREEN 3D ARCELIA CAD, 04/17/2021. INDICATIONS: Screening mammography Calculator Name NCI Breast Cancer Risk Assessment Tool 5 Year Breast Cancer Risk Not Reported. Lifetime Breast Cancer Risk Not Reported. Personal Breast Cancer No Personal Ovarian Cancer No Treatments None Family Cancers None LOCATION: [facility] BREAST COMPOSITION: Scattered areas fibroglandular [...] by: Stephanie Raya MD on 04/23/2022 at 13:10[facility] HospitalNM STRESS/REST MULTIon 27-43-7394VG STRESS/REST MULTIPatient: SASHASUNITANGELANEGAR MERCEDES KEstela Exam Date: 04/10/2022 : 1955 Gender:F Ordering : DR ARETHA BREWSTER . Admission #: [id number] Family : Order #: [id number] CLICK HERE TO VIEW EXAM RADIOLOGY REPORT [...] M.D. on 04/10/2022 at 13:49 Approved by: Noé Calderon M.D. on 04/10/2022 at 13:53[facility] HospitalAMYLASEon 83-88-0398Gaqachp [Catalytic activity/Vol]51 U/FJkqpgo86-234 The [facility] CenterComment on above:Performed By: #### MAGNO, LIPA, CMADM, HSTROPN #### [facility] [address] [place] [address] Dr. Christos Segal MONA ADMITon 54-54-2884QT [Catalytic activity/Vol]67 U/L Ucaugn10-288Rtx [facility] CenterComment on above:Performed By: #### MAGNO, LIPA, CMADM, HSTROPN #### [facility] [address] [place] [address] [address] Christos Herring.MB [Mass/Vol]0.93 ng/mLNormal<=3.60The [facility] Comment on above:Performed By: #### MAGNO, LIPA, CMADM, HSTROPN #### [facility] [address] [place] [address] Dr. Yilan CcptrOIY99 ng/mLNormal9-82The [facility] CenterComment on above: Performed By: #### MAGNO, LIPA, CMADM, HSTROPN #### [facility] [address] [place] [address] [address] Christos Petit AUTO DIFFon 52-72-6157ZMHK #0.1 103/ulNormal0.0-0.1The [facility] CenterComment on above:Performed By: #### CBC ####[facility] [address] [place] [address]Dr.Christos ChangBasophils/100 WBC (Bld)0.7 %Normal0.2-2.0The [facility] CenterComhutzel women's hospital on above:Performed By: #### CBC ####[facility] [address] [place] [address]Dr.Christos ChangEO #0.1 103/ulNormal0.0-0.7The [facility] CenterComhutzel women's hospital on above:Performed By: #### CBC ####[facility] [address] [place] [address]Dr.Christos ChangEosinophils/100 WBC (Bld)0.8 %Critically low0.9-7.0The [facility] CenterComhutzel women's hospital on above:Performed By: #### CBC ####[facility] [address] [place] [address]Dr. Christos ChangErythrocyte distribution width (RBC) [Ratio]13.4 %Bqupqv74.0-15.0The [facility] on above:Performed By: #### CBC ####[facility] [address] [place] [address]Dr.Christos RichardsonHematocrit (Bld) [Volume fraction]40.9 %Chmbxf79.0-48.0The [facility] CenterComment on above:Performed By: #### CBC ####[facility] [address] [place] [address]Dr.Christos ChangHemoglobin (Bld) [Mass/Vol]13.3 g/dL Qlljvt27.0-16.0The [facility] CenterComment on above:Performed By: #### CBC ####[facility] [address] [place] [address]Dr. Christos ChangIG #0.02 10e3/ulNormal0.00-0.03The [facility] CenterComment on above: Performed By: #### CBC ####[facility] [address] [place] [address]Dr.Devoramarissa DylanIG %0.3 %Normal0.0-0.5The [facility] CenterComment on above:Performed By: #### CBC ####[facility] [address] [place], [place] [address]Dr.Devoramarissa DylanLYMPH #2.3 103/ulNormal1.2-3.8The [facility] CenterComment on above:Performed By: #### CBC ####[facility] [address] [place], [place] [address]Dr. Christos RichardsonLymphocytes/100 WBC (Bld)32.6 %Lmbcpn75.5-60.0The [facility] Comment on above:Performed By: #### CBC ####[facility] Lm[address] [place], [place] [address]Dr.Christos RichardsonMANUAL DIFF REQNONormalThe [facility] CenterComment on above:Performed By: #### CBC ####[facility] [address] [place], [place] [address]Dr.Christos RichardsonH (RBC) [Entitic mass]29.2 boVrodbj16.7-34.0The [facility] CenterComment on above: Performed By: #### CBC ####[facility] Eshdihk[address] [place], [place] [address]Dr.Christos RichardsonMCHC (RBC) [Mass/Vol]32.5 g/dLNormal 29.9-35.2The [facility] CenterComment on above:Performed By: #### CBC ####[facility] [address]bs[address] [place], [place] [address]Dr. Christos RichardsonV (RBC) [Entitic vol]89.9 jGMgjvdg25.0-99.0The [facility] Comment on above:Performed By: #### CBC ####[facility] [address] [place] [address]Dr.Christos RichardsonMONO #1.0 103/ulCritically high0.3-0.8The [facility] CenterComment on above:Performed By: #### CBC ####[facility] [address] [place], [place] [address]Dr. Christos ChangMonocytes/100 WBC (Bld)14.2 %Critically high1.7-12.0The [facility] CenterComment on above:Performed By: #### CBC ####[facility] Dfqrbtpctm[address] [place], [place] [address]Dr.Christos RichardsonNEUT #3.7 103/ulNormal1.4-6.5The [facility] CenterComment on above:Performed By: #### CBC ####[facility] [address]sc[address] [place], [place] [address]Dr. Christos RichardsonNeutrophils/100 WBC (Bld)51.4 %Gfsrre22.0-75.0The [facility] Comment on above:Performed By: #### CBC ####[facility] S[address]qpsj[address] [place], [place] [address]Dr.Christos RichardsonPlatelet mean volume (Bld) [Entitic vol]9.7 fLNormal9.5-13.5The [facility] CenterComment on above:Performed By: #### CBC ####[facility] F[address]ij[address] [place], [place] [address]Dr.Christos HpymvRGX835 103/duKulmbz313-534Yky Clare HospitalComment on above:Performed By: #### CBC ####[facility] Sp[address] [place], [place] [address]Dr.Christos ChangRBC4.55 106/ulNormal4.20-5.40The [facility] CenterComment on above:Performed By: #### CBC ####[facility] [address] [place], [place] [address]Dr.Devoralan ChangWBC7.1 103/ul Normal4.0-11.0The [facility] on above:Performed By: #### CBC ####[facility] [address] [place] [address]DrEstela RichardsonLIPASEon 80-14-2305Allqpq [Catalytic activity/Vol]104.0 U/LNormal 73.0-393.0The [facility] on above:Performed By: #### MAGNO, LIPA, CMADM, HSTROPN #### [facility] [address] [place] [address] [address] Christos Vernon, HIGH SENSITIVITYon 52-81-5519PRKVQI6.6 pg/mLNormal 4.0-51.3The [facility] on above:Result Comment: CUT-OFF POINTS HAVE BEEN ESTABLISHED BASED ON THE FOURTH UNIVERSAL DEFINITIONS OF MYOCARDIAL INFARCTION. THE UPPER REFERENCE LIMIT (URL) OF TROPONIN, DEFINED THE 99TH PERCENTILE OF cTnI DISTRIBUTION IN A REFERENCE POPULATION, HAS BEEN CONFIRMED THE DECISION THRESHOLD FOR [place] DIAGNOSIS.Performed By: #### HSTROPN ####[facility] [address] [place] [address]Dr. Christos RichardsonHSTROP6.3 pg/mLNormal4.0-51.3 The [facility] on above:Result Comment: CUT-OFF POINTS HAVE BEEN ESTABLISHED BASED ON THE FOURTH UNIVERSAL DEFINITIONS OF MYOCARDIAL INFARCTION. THE UPPER REFERENCE LIMIT (URL) OF TROPONIN, DEFINED THE 99TH PERCENTILE OF cTnI DISTRIBUTION IN A REFERENCE POPULATION, HAS BEEN CONFIRMED THE DECISION THRESHOLD FOR [place] DIAGNOSIS.Performed By: #### MAGNO, LIPA, CMADM, HSTROPN #### [facility] [address] [place] [address] [address] Christos RichardsonXR CHEST 1 Von 54-36-8830DR CHEST 1 VEXAMINATION: XR CHEST 1 V HISTORY: CHEST PAIN, [...] Electronically authenticated by: NOÉ CALDERON Date: 2022-03-24 13:53NormalThe [facility] CenterINSULINon 59-12-3592Awevtyr66.4 uIU/mLNormal2.6-24.9[facility] InstituteComment on above:Performed By: #### INSULIN #### [facility] [address] [place] [address] Dr. Christos Petit AUTO DIFFon 96-36-3569AHFJ #0.1 103/ulNormal0.0-0.1The [facility] CenterComment on above:Performed By: #### CBC #### [facility] [address] [place] [address] Dr. Christos Thomassophils/100 WBC (Bld)0.8 %Normal0.2-2.0[facility] Comment on above:Performed By: #### CBC #### [facility] [address] [place] [address] Dr. Christos Santana #0.1 103/ulNormal0.0-0.7The [facility] CenterComment on above: Performed By: #### CBC #### [facility] [address] [place] [address] Dr. Christos Hunterosinophils/100 WBC (Bld)1.5 %Normal0.9-7.0[facility] Comment on above:Performed By: #### CBC #### [facility] [address] [place] [address] Dr. Christos Hunterrythrocyte distribution width (RBC) [Ratio]13.6 %Pdoyfc84.0-15.0 The [facility] CenterComment on above:Performed By: #### CBC #### [facility] [address] [place] [address] Dr. Christos RichardsonHematocrit (Bld) [Volume fraction]40.4 %Dshfan18.0-48.0[facility] InstituteComment on above:Performed By: #### CBC #### [facility] [address] [place] [address] Dr. Christos RichardsonHemoglobin (Bld) [Mass/Vol]12.9 g/rRAcfbwz80.0-16.0The [facility] CenterComment on above:Performed By: #### CBC #### [facility] [address] [place] [address] Dr. Christos Messer #0.01 10e3/ulNormal0.00-0.03The [facility] CenterComment on above:Performed By: #### CBC #### [facility] [address] [place] [address] Dr. Christos Messer %0.2 %Normal0.0-0.5The [facility] CenterComment on above: Performed By: #### CBC #### [facility] [address] [place] [address] Dr. Christos Cuadra #2.4 103/ulNormal1.2-3.8The [facility] CenterComment on above:Performed By: #### CBC #### [facility] [address] [place] [address] Dr. Christos Hastingshocytes/100 WBC (Bld)39.7 %Yxynid92.5-60.0The [facility] CenterComment on above:Performed By: #### CBC #### [facility] [address] [place] [address] Dr. Christos CroweUAL DIFF REQNONormalThe [facility] CenterComment on above: Performed By: #### CBC #### [facility] [address] [place] [address] Dr. Christos Funk (RBC) [Entitic mass]29.0 acFkmegm00.7-34.0The [facility] CenterComment on above:Performed By: #### CBC #### [facility] [address] [place] [address] Dr. Christos Funk (RBC) [Mass/Vol]31.9 g/wEPqrlzv02.9-35.2The [facility] CenterComment on above:Performed By: #### CBC #### [facility] [address] [place] [address] Dr. Christos FunkV (RBC) [Entitic vol]90.8 uSCwakkl62.0-99.0The [facility] Centerment on above:Performed By: #### CBC #### [facility] [address] [place] [address] Dr. Christos Gregorio #0.8 103/ulNormal0.3-0.8The [facility] CenterComment on above:Performed By: #### CBC #### [facility] [address] [place] [address] Dr. Christos Donovanocytes/100 WBC (Bld)13.5 %Critically high1.7-12.0The [facility] CenterComment on above:Performed By: #### CBC #### [facility] [address] [place] [address] Dr. Christos Leavitt #2.7 103/ulNormal1.4-6.5The [facility] CenterComment on above:Performed By: #### CBC #### [facility] [address] [place] [address] Dr. Christos Wootenutrophils/100 WBC (Bld)44.3 %Mvxpbl40.0-75.0The [facility] CenterComhutzel women's hospital on above:Performed By: #### CBC #### [facility] [address] [place] [address] Dr. Christos Lynnlet mean volume (Bld) [Entitic vol]10.4 fLNormal9.5-13.5The [facility] CenterComment on above:Performed By: #### CBC #### [facility] [address] [place] [address] Dr. Christos RichardsonPLT287 103/ogFythmz716-587Igk [facility] CenterComhutzel women's hospital on above: Performed By: #### CBC #### [facility] [address] [place] [address] Dr. Christos RichardsonRBC4.45 106/ulNormal4.20-5.40The [facility] CenterComment on above:Performed By: #### CBC #### [facility] [address] [address] [address] Christos RichardsonWBC6.1 103/ulNormal4.0-11.0The [facility] CenterComment on above: Performed By: #### CBC #### [facility] [address] [address] [address] Christos Quigley THYROXINE INDEX T7on 25-60-3818MTH5.62Dmcxyr1.30-4.50The [facility] CenterComment on above:Performed By: #### CMP, T7, LIPID, TSH ####[facility] [address] [address]Dr. Christos RichardsonT3U35.0 %Qsxhdf46.0-39.0The [facility] CenterComment on above: Performed By: #### CMP, T7, LIPID, TSH ####[facility] [address] [address]Dr. Christos RichardsonT4 [Mass/Vol]5.70 ug/dLNormal 4.80-13.90The [facility] CenterComment on above:Performed By: #### CMP, T7, LIPID, TSH ####[facility] [address] [address]Dr. Christos RichardsonGLYCOHEMOGLOBIN A1Con 03-53-0271BMZ RECOMMENDATIONSEE BELOW NormalThe [facility] CenterComment on above:Result Comment: ADA RECOMMENDED LIMIT 4.0 - 6.0 ADA THERAPEUTIC TARGET < 7.0 ACTION SUGGESTED > 7.0Performed By: #### A1C ####[facility] [address] [address]DrJordan RichardsonGlucose [Mass/Vol]114 mg/dLNoalThe [facility] Comment on above:Performed By: #### A1C ####[facility] [address] [address]Dr.Christos RichardsonHbA1c (Bld) [Mass fraction]5.6 %Normal4.5-6.2The [facility] CenterComment on above:Performed By: #### A1C ####[facility] S[address] [place], [place] [address]DrEstela RichardsonIRONon 90-52-0125Dait [Mass/Vol]100.0 ug/iXDogzyg87.0-170.0The [facility] CenterComment on above:Performed By: #### IRON ####[facility] [address] [address]Dr. Christos RichardsonLIPID PROFILE on 02-60-1388SCRB-HDL RATIO NORMSEE BELOWNoChillicothe VA Medical CenterComment on above:Result Comment: 3.3 - 4.4 LOW RISK 4.4 - 7.1 AVERAGE RISK 7.1 - 11.0 MODERATE RISK >11.0 HIGH RISKPerformed By: #### CMP, T7, LIPID, TSH ####[facility] [address] [place], [place] [address]Dr. Christos Richardson Cholesterol [Mass/Vol]187 mg/dLNormal<=200The [facility] CenterComment on above: Performed By: #### CMP, T7, LIPID, TSH ####[facility] T[address] [place], [place] [address]Dr. Devoralan ChangCholesterol in HDL [Mass/Vol]63 mg/dLCritically ywwz29-59Jbr [facility] on above:Performed By: #### CMP, T7, LIPID, TSH ####[facility] Z[address] [place], [place] [address]Dr. Yilan ChangCholesterol in LDL [Mass/Vol]110.8 mg/dLMercy Health Kings Mills HospitalComhutzel women's hospital on above:Performed By: #### CMP, T7, LIPID, TSH ####[facility] [address] [place], [place] [address]Dr. Devoralan ChangCholesterol.total/Cholesterol in HDL [Mass ratio]3.0 {ratio} NormalThe [facility] CenterComhutzel women's hospital on above:Performed By: #### CMP, T7, LIPID, TSH ####[facility] Carwkuzh[address] [place], [place] [address]Dr. Yilan ChangHDL NORMAL> or = 60 mg/dl - LOW CARDIOVASCULAR RISK <40 mg/dl - HIGH CARDIOVASCULAR RISKMercy Health Kings Mills HospitalComhutzel women's hospital on above:Performed By: #### CMP, T7, LIPID, TSH ####[facility] [address] [address]Dr. Christos ChangLDL CALC NORMALSEE BELOWNormToledo HospitalComhutzel women's hospital on above:Result Comment: <100 mg/dl OPTIMAL 100 - 129 mg/dl NEAR OR ABOVE OPTIMAL 130 - 159 mg/dl BORDERLINE HIGH 160 - 189 mg/dl HIGH >190 mg/dl VERY HIGHPerformed By: #### CMP, T7, LIPID, TSH ####[facility] [address] [address]Dr. Devoramarissa DylanTriglyceride [Mass/Vol]66 mg/dLNormal<=150The [facility] on above:Performed By: #### CMP, T7, LIPID, TSH ####[facility] [address] [address]Dr. Christos RichardsonVLDL CALC13.2 mg/dLNoChillicothe VA Medical CenterComhutzel women's hospital on above:Performed By: #### CMP, T7, LIPID, TSH ####[facility] X[address] [place], [place] [address]Dr. Christos RichardsonPROF 14(COMP METB)on 14-52-2049Lxubina [Mass/Vol]3.4 g/dLNormal3.4-5.0The [facility] on above:Performed By: #### CMP, T7, LIPID, TSH ####[facility] [address] [address]Dr. Christos Richardson Albumin/Globulin [Mass ratio]0.9 {ratio}NormalThe [facility] on above:Performed By: #### CMP, T7, LIPID, TSH ####[facility] [address] [address]Dr. Christos DylanALP [Catalytic activity/Vol]79 U/NLrghac06-708Axb [facility] on above:Performed By: #### CMP, T7, LIPID, TSH ####[facility] [address] [address]Dr. Christos RichardsonALT [Catalytic activity/Vol]22 U/L Ufcsqx35-45Zxs [facility] Centerment on above:Performed By: #### CMP, T7, LIPID, TSH ####[facility] [address] [address]Dr. Yilan ChangAnion gap [Moles/Vol]11.5 mmol/LNormalThe [facility] Comment on above:Performed By: #### CMP, T7, LIPID, TSH ####[facility] [address] [address]Dr. Yilan ChangAST [Catalytic activity/Vol]16 U/FDltvet74-42Rxt [facility] Centerment on above:Performed By: #### CMP, T7, LIPID, TSH ####[facility] [address] [address]Dr. Yilan ChangBilirubin [Mass/Vol]0.3 mg/dLNormal 0.2-1.0The [facility] on above:Performed By: #### CMP, T7, LIPID, TSH ####[facility] Axjvpxltaw[address] [place], [place] [address]Dr. Yilan ChangCalcium [Mass/Vol]9.1 mg/dLNormal8.5-10.1[facility] Comment on above:Performed By: #### CMP, T7, LIPID, TSH ####[facility] [address] [address]Dr. Yilan ChangChloride [Moles/Vol]106 mmol/INepkes92-341Igp [facility] on above:Performed By: #### CMP, T7, LIPID, TSH ####[facility] Tteof[address] [place], [place] [address]Dr. Yilan ChangCO2 [Moles/Vol]27.7 mmol/LNormal 21.0-32.0The [facility] CenterComhutzel women's hospital on above:Performed By: #### CMP, T7, LIPID, TSH ####[facility] [address] [address]Dr. Yilan ChangCreatinine [Mass/Vol]0.75 mg/dLNormal0.55-1.02The [facility] CenterComment on above:Performed By: #### CMP, T7, LIPID, TSH ####[facility] [address] [address]Dr. Yilan ChangEGFR- AF BURKINAN>60Normal>=60The [facility] Centerment on above:Performed By: #### CMP, T7, LIPID, TSH ####[facility] [address] [address]Dr. Yilan ChangEGFR-NON AF BURKINAN>60Normal>=60The [facility] CenterComment on above:Performed By: #### CMP, T7, LIPID, TSH ####[facility] [address]xgaoesvte[address] [place], [place] [address]Dr. Yilan ChangGlobulin (S) [Mass/Vol]3.9 g/dLNormalThe [facility] CenterComhutzel women's hospital on above:Performed By: #### CMP, T7, LIPID, TSH ####[facility] Lqxvix[address] [place], [place] [address]Dr. Yilan ChangGlucose [Mass/Vol]95 mg/nLMzhfsb90-124Bsk [facility] CenterComment on above:Performed By: #### CMP, T7, LIPID, TSH ####[facility] Cl[address]smxece[address] [place], [place] [address]Dr. Yilan ChangPotassium [Moles/Vol]4.2 mmol/LNormal 3.5-5.1The [facility] CenterComhutzel women's hospital on above:Performed By: #### CMP, T7, LIPID, TSH ####[facility] [address]wh[address] [place], [place] [address]Dr. Yilan ChangProtein [Mass/Vol]7.3 g/dLNormal6.4-8.2The [facility] CenterComment on above:Performed By: #### CMP, T7, LIPID, TSH ####[facility] Psflsjkmcp[address] [place], [place] [address]Dr. Yilan ChangSodium [Moles/Vol]141 mmol/KTyztxj384-365Unx [facility] CenterComment on above: Performed By: #### CMP, T7, LIPID, TSH ####[facility] Y[address]hsq[address] [place], [place] [address]Dr. Christos RichardsonUrea nitrogen [Mass/Vol]15.0 mg/dLNormal7.0-18.0The [facility] CenterComment on above:Performed By: #### CMP, T7, LIPID, TSH ####[facility] [address] [address]Dr. Christos RichardsonUrea nitrogen/Creatinine [Mass ratio]20.0 mg/mgNormal The [facility] CenterComment on above:Performed By: #### CMP, T7, LIPID, TSH ####[facility] [address] [address]Dr. Christos RichardsonTSHon 94-32-0147MPE7.880 uIU/mLCritically high0.358-3.740The [facility] CenterComment on above:Performed By: #### CMP, T7, LIPID, TSH ####[facility] [address] [address]Dr. Christos Holley LEFT 1 OR 2 VWS WITH PELVISon 96-47-6462TNV LEFT 1 OR 2 VWS WITH PELVIS [facility] Department of Radiology [address] [place] [id number] Patient Name: MERCEDES EAGLE : 1955 [...] prosthesis. Electronically signed: Eder Crowder. Transcribed by: [email or web address], User Resident: EDER CROWDER Electronically Signed by: EDER CROWDER @ 05/30/2021 12:27 PM I personally read this/these film(s) with this residentCleveland Clinic FoundationComment on above:Order Comment: evaluate Vital Signs Date TimeVital SignValuePerforming FkrloihjdHbjpqxni86-96-3812 12:50-0400Body lpuzqe008.3 cmDagama James MD Work Phone: [facility]04-08-2025 12:50-0400Body mass index (BMI) [Ratio]30.69 kg/l6SlbvlyBrian James MD Work Phone: [facility]04-08-2025 12:50-0400Body nakmbx62.83 kgBrian James MD Work Phone: [facility]12-31-2023 09:30-0500Body nwcxye546.56 Demetria Sargent Other [place] [employer] Other 12-31-2023 09:30-0500Body mass index (BMI) [Ratio] 30.65 kg/d2GbgmtSarah Sargent Other [employer] Other 12-31-2023 09:30-0500Body mvqaulqxkkg04.8 [degF]Sarah Sargent Other [employer] Other 12-31-2023 09:30-0500Body .01 kgAmbheena Sargent Other [employer] Other 12-31-2023 09:30-0500Diastolic blood ukuyamcr15 mm[Hg] Sarah Sargent Other [employer] Other 12-31-2023 09:30-0500Respiratory rate16 /minSarah Sargent Other [employer] Other 12-31-2023 09:30-8568GdD0% (BldA) [Mass fraction]96 % Sarah Sargent Other [employer] Other 12-31-2023 09:30-0500Systolic blood ydezwvzs503 mm[Hg] Sarah Sargent Other [employer] Other 03-29-2023 15:17-0400Blood Pressure LocationMichael NILL General Surgery Mqewzdur49-84-2580 15:17-0400Diastolic blood eyqepani51 mm[Hg]Lui NILL General Surgery Kvtdbxxf65-64-0619 15:17-0400Heart rate 72 /minMichael NILL [facility] Adrxgcsc66-39-5872 15:17-0400 Respiratory rate16 /minMichael NILL [facility] Surgery Fsaxgdva31-05-0748 15:17-0400Systolic blood mm[Hg]Lui GAMINO General Surgery Qvhmmhuf71-66-2793 17:50-0400Body uwodmx449.56 cmPjeronimo Dean Other [employer] Other 05-31-2022 17:50-0400Body mass index (BMI) [Ratio] 27.46 kg/v3RfasbtOlivia Mclaughlinmond Other [employer] Other 05-31-2022 17:50-0400Body sdafwfklpdw07.8 [degF]Olivia Dianne Other [employer] Other 05-31-2022 17:50-0400Body modnqa59.58 kgAngelyrambo MclaughlinDianne Other [employer] Other 05-31-2022 17:50-0400Diastolic blood bvytmdph05 mm[Hg] Olivia Dianne Other [employer] Other 05-31-2022 17:50-0400Respiratory rate16 /minBhanujeannierambo Dean Other [employer] Other 05-31-2022 17:50-7666YxB1% (BldA) [Mass fraction]98 % Olivia Dianne Other [employer] Other 05-31-2022 17:50-0400Systolic blood nnwumzqn075 mm[Hg] Olivia Dianne Other [employer] Other Encounters Encounter DateEncounter TypeCare ProviderFacilityStart: 01-19-2025 End: 34-48-0839eejmnscedeZrkyllr M [facility] Work Phone: Start: 01-19-2025 End: 77-36-3340Vcrlsblv Amadou Santacruz MD-LAB [facility] Start: 01-09-2025 End: 54-84-8402junvijqgpeWarizbd M [facility] Work Phone: Start: 01-09-2025 End: 44-96-7604Wedkljdo Amadou Santacruz MD-LAB [facility] Start: 09-20-2024 End: 84-32-6434Xpqhfs outpatient new 20 minutesDagama James MD Work Phone: [facility] OrthopaedicsComment on above:Aftercare following left hip joint replacement surgery (Primary Dx)Start: 09-20-2024 End: 83-47-2800yjamkgjxojHDAOVP J GEHLINGProPromedica Defiance Regional Hospitalca [facility] Medical Centertart: 08-29-2024 End: 51-73-0952wgncrslshvYSNINX H TIMMISNot AvailableStart: 03-09-2024 End: 03-17-7587Czvagfw encounter procedure Aretha Cameronjayant Work Phone: [facility] [address] Work Phone: Start: 03-09-2024 End: 01-83-7937vjrpsokzvnBG Aretha Santacruz Ney Work Phone: [facility] Work Phone: Start: 01-27-2024 End: 17-70-3175eiuxzxvllvOVRRHS H TIMMISNot AvailableStart: 01-12-2024 End: 96-67-0868Yrlctqjeu Result EncounterHisandra Garcia MD Work Phone: noms External Department UnsolicitedStart: 01-12-2024 End: 45-99-4277Xjznvdffk Result EncounterHisandra Garcia MD Work Phone: [facility] External Department UnsolicitedStart: 01-04-2024 End: 52-59-1668fbytlqdeqeTVCYAY H TIMMISNot AvailableStart: 09-01-2023 End: 26-98-1609yosucfqmkwOVAGIQ H TIMMISNot AvailableStart: 06-14-2023 End: 17-63-2754bkjilhpzllXtoep Keller Other [employer] Other Start: 36-57-5891Jvpyko outpatient visit 25 minutes Sarah [facility] ClydeStart: 10-01-2022 End: 60-43-3478nxccfbubxlOJ LUI NILL .Facility:E1Donpk: 09-10-2022 End: 00-69-5414gjtotoedsvEbibahu R NILLFacility: BellevueStart: 09-10-2022 End: 42-63-1293Tbovboh encounter procedureMichael R NILL General Surgery Nill/Said Ivan Start: 09-75-3109jgwkbhhfzkYytpaiu NILLFacility:[facility] HospitalevueStart: 35-94-5070vipsajcbyhTS LUI NILL .Facility:B8Iqvqw: 05-15-2022 End: 70-80-7350qyuhuqiupzKOJDBA D. [facility] Start: 04-28-2022 End: 57-54-0295mgtqaysnuqSS ARETHA HOY .Facility:V4Lhpsu: 04-23-2022 End: 92-47-2827aedkbjbqbnFL ARETHA HOY .Facility:M6Izasj: 04-10-2022 End: 94-03-1766tinygleuuoKW ARETHA HOY .Facility:T4Tbyze: 03-24-2022 End: 75-29-4572ylptpvwmheTUVGRY RODRIGUEZ .Facility:Z1Qpdsw: 53-82-8247Nlzjyghlv for general adult medical examination without abnormal findingsDR ARETHA HOY . [facility]: 01-08-2022 End: 48-71-5888fqpeszmuggZX ARETHA HOY .Facility:Q4Zjsvr: 01-08-2022 End: 63-41-1034Tgxlnpuxb for general adult medical examination without abnormal findingsDR ARETHA BREWSTER .Facility:U7Cacye: 11-12-2021 End: 83-38-9664hifrjokymaCphypa Dymond Other [employer] Other Start: 99-66-4049Guecxe outpatient visit 15 minutes Olivia DeanFPKwame Urgent Care Michele Procedures DateProcedureProcedure DetailPerforming ClinicianStart: 82-13-0017Rfoor culture Aretha Brewster MD Work Phone: Start: 38-89-1110Gk soft tissue neck w/contrast materialEugenio Garcia MD Work Phone: arthroscopy of kneeMichael NILL ColonoscopyMichael NILL ColonoscopyMichael NILL Dilatation of esophageal strictureMichael NILL EsophagogastroduodenoscopyMichael NILL EsophagogastroduodenoscopyMichael NILL Ligation of fallopian tubeMichael NILL Reduction mammoplastyMichael NILL Repair of hipMichael NILL Plan of Treatment DateCare ActivityDetailAuthorStart: 85-49-5697NMqO,Tdap and Td Vaccines (5 - Td or Tdap)DTaP,Tdap and Td Vaccines (5 - Td or Tdap)ProMCannon Falls Hospital and Clinic SystemStart: 03-37-8538Bupla BMI ScreeningAdult BMI ScreeningProGeorgetown Behavioral Hospital SystemStart: 82-33-6574Iwadscc ScreeningTobacco ScreeningProPromedica Defiance Regional Hospitalca [facility] SystemStart: 66-72-2341Erjicskes vaccinationInfluenza VaccineProGeorgetown Behavioral Hospital SystemStart: 76-41-8108Ptyvfoal identified in Urine by CultureUrine CultureHarrison Community Hospitaltart: 80-33-0036Wqsvb cultureSycamore Medical Center Start: 98-89-0486Tebmh cultureHarrison Community Hospitaltart: 01-09-2025 Bacteria identified in Urine by CultureUrine CultureHarrison Community Hospitaltart: 35-98-6498Cojxnavju B core antibody measurementHarrison Community Hospitaltart: 27-20-2383GgwyeytpsHarrison Community Hospitaltart: 74-71-0806SWIZZ-19 Vaccine ( season)COVID-19 Vaccine ( season)[facility] [employer] [facility] Centertart: 24-61-5853Mdmn Risk ScreeningFall Risk ScreeningUNC Health Blue Ridgetart: 06-15-9371Chpvxuayvqzhvx of varicella zoster vaccineZoster (Shingles) Vaccine (2 of 3)[facility] SystemStart: 48-43-4037Djcff BMI Follow Up PlanAdult BMI Follow Up PlanUNC Health Blue Ridgetart: 40-41-7350Ndpeyssnow ScreeningDepression ScreeningSelect [facility]24 hour urine measurementSycamore Medical CenterAlbumin [Mass/volume] in Serum or PlasmaSycamore Medical Center Albumin/Globulin ratioSycamore Medical CenterAldolase measurement [facility]camore Medical CenterChromatin Ab [Units/volume] in Serum or Plasma [facility] Medical CenterElectrophoresis: jryfj-8-vtwtvgypJwwmgiukuSycamore Medical CenterElectrophoresis: vlkzj-1-olfchwqmZcsptnfxgSycamore Medical CenterElectrophoresis: beta-globulinSycamore Medical Center Electrophoresis: gamma globulinSycamore Medical CenterGlobulin [Mass/volume] in SerumSycamore Medical CenterHepatitis B virus surface Ab [Presence] in SerumSycamore Medical CenterHepativanderbilt university bill [facility] B virus surface Ag [Presence] in Serum or Plasma by ImmunoassaySycamore Medical CenterHepatitis C virus IgG Ab [Presence] in Serum or Plasma by ImmunoassaySycamore Medical CenterHomogenous nuclear Ab pattern [Titer] in SerumSycamore Medical CenterImmunofixation for Urine [facility] Medical CenterInterferon gamma assaySycamore Medical CenterMeasurement of monoclonal protein concentrationSycamore Medical CenterMycobacterium tuberculosis stimulated gamma interferon [Interpretation] in Blood QualitativeSycamore Medical Center Mycobacterium tuberculosis stimulated gamma interferon release by CD4+ and CD8+ T-cells [Units/volume] corrected for background in [facility] HospitalMycobacterium tuberculosis tuberculin stimulated gamma interferon [Presence] in [facility] General HospitalNuclear Ab [Titer] in Serum [facility] Medical CenterProtein [Mass/volume] in Serum or Plasma [facility] Medical CenterProtein [Mass/volume] in UrineSycamore Medical CenterReagin Ab [Presence] in Serum by RPRFParkview Health Bryan Hospital Immunizations Immunization DateImmunizationNotesCare CgnfqftxAipfwmma62-45-5511gfvknzyut virus vaccine, unspecified formulationBrian James MD Work Phone: [facility] ShawLpvwtc31-69-5349jhxepuzal virus vaccine, unspecified formulationMichael NILL [facility] Surgery Etxibfxx03-52-2724DWHC-JuR-7 (COVID-19) mRNAMUL.ORD!g11304Gmfpqvf NILL [facility] Ppnevavb82-89-0574GJPG-KdO-5 mRNA (dnddjopvlkp-akgr-qgkkmlu) vaccineMichael NILL [facility] Lefeblrq47-52-6094ZZYL-HbI-4 mRNA (llrypnkfhfm-pgnh-ajxfjps) vaccineMichael NILL [facility] Zwvyyqpi21-71-4254TVVJ-AlK-2 (COVID-19) mRNA BNT-162b2 vaxMichael NILL [facility] Vrtypmga32-05-6944XTTP-UdK-9 (COVID-19) mRNA BNT-162b2 vaxMichael NILL [facility] Gdynpysq15-15-7270oobygh vaccine, unspecified formulationBrian James MD Work Phone: [facility] Payers DatePayer CategoryPayerPolicy [id number] HMOMEDICARE HMO/PPO - GENERIC PLAN Member Subscriber Plan / Payer (Effective 2024-Present) Name: Mercedes Eagle Relation to Subscriber: Self Name: Mercedes Eagle Payer ID: Not on file Type: Not on file Address: [place] [id number] 2022Medicare (Managed Care)[facility] [id number] [id number] [id number] 2..1.643040.3.57[id number] 2..1.395681.3.57[id number] 2..1.689338.3.57[id number] 2..1.065443.3.57[id number] 2..1.995752.3.57[id number] 2.0.1.835645.3.57[id number] 2.840.1.755884.3.57[id number] 2.0.1.679757.3.57[id number] 2.0.1.986911.3.579.[id number] 2..1.746775.3.579.2.328856-39-7866Axgvjib3069823 2..1.353791.3.579.2.005534-69-4891Ztpqrfl1957159 2..1.931423.3.579.2.408958-75-6910Yytjtwj8546422 2..1.548238.3.57[id number] 2..1.566190.3.579.[id number] 2..1.178572.3.57[id number] Health [id number] [id number] 2.840.1.5[id number] 2.0.1.0177[id number] 2.0.1.993457.3.579.2.531 Social History DateTypeDetailFacilityStart: 08-29-2024 End: 48-76-2342Man [facility]igned At [facility] Hospitaltart: 09-10-2022 End: 92-06-2617Uhdfqnw smoking statusEx-smoker (finding)[facility] Start: 41-06-1246Xhdhqzz smoking statusNeverGeneral Surgery [facility] Hospitaltart: 33-98-1028Fcv [facility]igned At [facility] End: 16-52-5093Jbqpman of tobacco useCurrent smokerAdena Health System System End: 80-86-9595Cqbqpof of tobacco useCigarette SmokerSelect Medical [facility] History of tobacco usePassive smokerAdena Health System SystemStart: 08-31-2023 End: 66-35-2541Sqfmgrz use and exposureSmokeless tobacco non-userAdena Health System SystemStart: 01-04-2024 End: 93-53-3413Gfyfrfild beverage intakeEx-drinker (finding)[facility] SystemStart: 08-29-2024 End: 85-80-8409Dysxlzf of Social functionAdena Health System SystemStart: 25-17-8295GclHibqhe (finding)[facility] Ridgetart: [id number] identityIdentifies as female gender (finding)[facility] Ridgetart: [id number] orientationHeterosexual (finding)[facility] smoking status NHISUnknown if ever smokedHarrison Community Hospital Work Phone: Start: [id number] [facility] Functional Status CqjbYfqrgasgmjLuebwvOuqsnhhs22-55-2016Qxaayuirzg StatusN/AGeneral Surgery [place] Clinical Notes 11-12-2021 to 09-20-2024 Note Date & HisqHjqcYbmqttim07-65-7655 History of Present illness Narrative* Brian James MD - 09/20/2024 1:00 PM EDT Orthopaedic Surgery Outpatient Visit Note Encounter Date: 09/20/2024 Patient: Mercedes Eagle 1955 PCP No primary care provider on file. 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 female. This is a patient with a left hip replacement about 4 years ago doing just fine with that side. Shehas had a number of issues that she had to deal with so she is a little delayed in getting back in for repeat check. The right hip is not really bothering her too much. She has known osteoarthritis and that is side went hurts her once in a while but she goes hiking in has full activity without muchtrouble. She has an occasional pain in her [...] Strain: Low Risk (05/15/2022) [facility] from [facility] Overall Financial Resource Strain (CARDIA) Difficulty of Paying Living Expenses: Not hard at all Food Insecurity: No Food Insecurity (05/15/2022) Received from [facility] Hunger Vital Sign Worried About Running Out of Food in the Last Year: Never true Ran Out of Food in the Last Year: Never true Transportation Needs: No Transportation Needs (05/15/2022) Received from [facility] PRAPARE - Transportation Lack of Transportation (Medical): No Lack of Transportation (Non-Medical): No Physical Activity: Insufficiently Active (05/15/2022) Received from [facility] Exercise Vital Sign Days of Exercise per Week: 2 days Minutes of Exercise per Session: 60 min Stress: No Stress Concern Present (05/15/2022) Received from [facility] Malag[place] of Occupational Health - Occupational Stress Questionnaire Feeling of Stress : Not at all Social Connections: Moderately Integrated (05/15/2022) Received from [facility] Social Connection and Isolation Panel [NHANES] Frequency of Communication with Friends and Family: Twice a week Frequency of Social Gatherings with Friends and Family: Once a week Attends Taoist Services: More than 4 times per year Active Member of Clubs or Organizations: No Attends Club or Organization Meetings: Never Marital Status: Interpersonal Safety: Unknown (08/06/2023) Received from [facility] [place] Safety & Environment Fear of Current or Ex-Partner: Not on file Emotionally Abused: Not on file Physically Abused: Not on file Sexually Abused: Not on file Physically or Sexually Abused: Not on file Housing Instability: Low Risk (05/15/2022) Received from [facility] Housing Stability Vital Sign Unable to [...] hip were reviewed. Findings: Right hip shows sexw-nn-yvqy joint space narrowing with osteophyte formation. The [...] years for repeat x-ray. documented in [facility]* Encounter Date Diagnosis Assessment Notes Treatment Notes Treatment Clinical Notes May, Nasal congestion (ICD-10 - R09.8 1) May,RSV infection (ICD-10 - B33.8) Advised patient that RSV PCR test was positive. COVID/influenza A/B PCR test negative. Discussed diagnosis with patients mother in detail. Advised that this is a viral illness and antibiotics are not indicated. Finish previous rx of steroids. Use rx of Capronas directed. Discussed importance of adequate hydration and [...] plan. Patient sent home in stable condition. [facility] Other [id number] NoteOPERATIVE NOTE OPERATION DATE: 10/01/2022 ADDENDUM: Please add to the operative report - Follow up screening colonoscopy should be in 10 years.[facility] [id number] NoteOPERATIVE NOTE OPERATION DATE: 10/01/2022 PREOPERATIVE DIAGNOSIS: [...] in good condition. CC: Aretha Brewster M.D.[facility] [id number] NoteChief Complaint consultation for screening colonoscopy HPI [...] and Sister. Immunizations Vaccin (more content not included)...[facility]Comment [facility]:Result Comment: Electronically Signed By: ТАТЬЯНА HERNANDEZ, Lui Moeller\Date and Time Signed: 09/10/22 16:09 [id number] NoteOrthopaedic Surgery Outpatient Visit Note Encounter Date: [...] incisional issues. Follow Up: No follow-ups on file.[facility]05-31-2022 Evaluation note* Encounter Date Diagnosis Assessment Notes Treatment Notes Treatment Clinical Notes October, Insect bite (nonveno mous), left lower leg, initial encounter (ICD- 10 - S80.862A) Take the antibiotic as prescribed until gone. Use the steroid cream as prescribed to the area. Makean appointment with your family physician for recheck later this week or next week. Go to the ER for worsening symptoms or concerns. October,itten or stung by nonvenomous insect and other nonvenomous arthropods, initial encounter (ICD-10 -W57.XXXA) [facility] Other Evaluation + Plan note No data available for this section General Surgery Ivan Evaluation noteNo assessment information available [facility] Work Phone: Evaluation note* Diagnosis Aftercare following left hip joint replacement surgery- Primary documented in this encounter [facility] general Narrative - Reported* Type Description Date Medical History arthritis Surgical Historypyloniadal cystSurgical Historyboth kneeSurgical Historybreast reductionSurgical Historytubal ligationSurgical HistoryTotal hip replacement Hospitalization Historysee above surg hx [facility] Other History general Narrative - Reported* Type Description Date Medical History arthritis Medical HistoryGERDSurgical Historypyloniadal cystSurgical Historyboth knee Surgical Historybreast reductionSurgical Historytubal ligationSurgical History Total hip replacementHospitalization Historysee above surg hx [facility] Other Hospital Discharge instructions No data available for this section General Surgery [place] InstructionsNot on filedocumented in this encounter [facility] SystemProgress note No data available for this section General Surgery Ivan Reason for referral (narrative)No reason for referral information availableHarrison Community Hospital Work Phone: Summary Purpose Family History Relationship Condition Age at Onset Recorded Date/T griselda father Unknown Heart diseaseUnknownfamily memberDeceasedUnknownmotherDiabetes mellitusUnknown DeceasedUnknown Advance Directives Advance Directive Response Recorded Date/ Time Advance Directives No February 1:52pm Additional Source Comments INFORMATION SOURCE (unrecogn ized section and content) DATE CREATED AUTHOR 10/25/2021 [facility] DATE CREATED AUTHOR AUTHOR'S ORGANIZ ATION 05/17/2022 [facility] DATE CREATED AUTHOR AUTHOR'S ORGANIZ ATION 10/10/2022 [facility] DATE CREATED AUTHOR AUTHOR'S ORGANIZ ATION 10/10/2022 [facility] DATE CREATED AUTHOR AUTHOR'S ORGANIZ ATION 08/31/2024 [facility] DATE CREATED AUTHOR AUTHOR'S ORGANIZ ATION 09/22/2024 [facility] DATE CREATED AUTHOR AUTHOR'S ORGANIZ ATION 01/21/2025 [facility] REASON FOR VISIT (unrecogniz ed section and content) ReasonCommentsNew PatientNP re-est Left [facility]20 [facility], just a follow up no pain Patient Care team informatio n (unrecognized section and content) Team Status: Active Member Role Status Dates Aretha Brewster MD Primary Care Provider Active Team Status: Inactive Member Role Status Dates Aretha Brewster MD Primary Care Provider Active Start: March 09, 2024 End: March 09, 2024MaJohnson Gonzalez ProviderActiveStart: March 09, 2024 End: March 09, 2024 Team Status: Inactive Member Role Status Dates Aretha Brewster MD Attending Provider Active Sta rt: January 09, 2025 End: January 09, 2025 Team Status: Inactive Member Role Status Dates Aretha Brewster MD Attending Provider Active Sta rt: January 19, 2025 End: January 19, 2025Team MemberRelationshipSpecialtyStart DateEnd Date Aretha Brewster MD PCP - GeneralFamily Medicine08/18/23 Goals (unrecognized section and content) Goals may [...] BE BASED ON THE PRIMARY CLINICAL RECORDS. [employer] provides no warranty or guarantee of the accuracy or completeness of information in this document.
--- OUTSIDE RECORDS SUMMARY | 2025-05-08 08:27 | XMS_ITS | Clinical Summary ---
Author Organization [facility] Address [address] [place] [address] Care Team Providers Care Corrections Unit Supervisor Name Role Phone Unavailable Primary Care Provider Unavailabl e Allergies Active AllergyReactionsCriticalityNoted DateCommentsErythromycin Base05/15/2022 Latex05/15/20222087Xltgefpbvex63/01/2022 Medications MedicationSigDispense QuantityRefillsLast FilledStart DateEnd DateStatus nitroglycerin (Nitrostat) 0.[address] 1 TABLET UNDER THE TONGUE FOR CHEST PAIN - MAY REPEAT EVERY... (REFER TO PRESCRIPTION NOTES).03/28/2022ctive pantoprazole (ProtoNix) 40 mg EC tablet Take 40 mg by mouth in the morning.05/10/2022ctive Family History Medical HistoryRelationNameCommentsNo Known ProblemsFatherArthritisMother DiabetesMotherHeart diseaseMotherRelationNameStatusCommentsFatherMother Social History Tobacco UseTypesPacks/DayYears UsedDateSmoking Tobacco: FormerCigarettes Smokeless Tobacco: Never Tobacco Cessation:Counseling Given: Not Answered Alcohol UseStandard Drinks/WeekCommentsNever0 (1 standard drink = 0.6 oz pure alcohol)Humiliation, Afraid, Rape, and Kick questionnaireAnswerDate Recorded Within the last year, have you been afraid of your partner or ex-partner?No 05/15/2022Within the last year, have you been humiliated or emotionally abused in other ways by your partner or ex-partner?No05/15/2022Within the last year, have you been kicked, hit, slapped, or otherwise physically hurt by your partner or ex-partner?No05/15/2022Within the last year, have you been raped or forced to have any kind of sexual activity by your partner or ex-partner?No05/15/2022 Social Connection and Isolation PanelAnswerDate RecordedIn a typical week, how many times do you talk on the phone with family, friends, or neighbors?Twice a week05/15/2022How often do you get together with friends or relatives?Once a week05/15/2022How often do you attend nondenominational or protestant services?More than 4 times per year2Do you belong to any clubs or organizations such as nondenominational groups, unions, fraH[employer]o [employer] or athletic groups, or school groups?No 05/15/2022How often do you attend meetings of the clubs or organizations you belong to?Never05/15/2022re you , , , , never , or living with a partner?Tqihtuv6805/15/2022UDIT-CAnswerDate RecordedQ1: How often do you have a drink containing alcohol?Never05/15/2022Q2: How many drinks containing alcohol do you have on a typical day when you are drinking? Patient does not drink05/15/2022Q3: How often do you have six or more drinks on one occasion?Never05/15/2022verall Financial Resource Strain (CARDIA)AnswerDate RecordedHow hard is it for you to pay for the very basics like food, housing, medical care, and heating?Not hard at all05/15/2022HQ-2AnswerDate Recorded Patient Health Questionnaire-2 Watyc06607/16/2021[facility] [place] [facility] Occup[facility] Health - Occupational Stress QuestionnaireAnswerDate RecordedDo you feel stress - tense, restless, nervous, or anxious, or unable to sleep at night because your mind is troubled all the time - these days?Not at all05/15/2022Exercise Vital SignAnswerDate RecordedOn average, how many days per week do you engage in moderate to strenuous exercise (like a brisk walk)?2 days05/15/2022n average, how many minutes do you engage in exercise at this level?60 min05/15/2022Hunger Vital SignAnswerDate RecordedWithin the past 12 months, you worried that your food would run out before you got the money to buymore.Never true05/15/2022 Within the past 12 months, the food you bought just didn't last and you didn't have money to get more.Never true05/15/2022RAPARE - TransportationAnswerDate RecordedIn the past 12 months, has lack of transportation kept you from medical appointments or from getting medications?No05/15/2022In the past 12 months, has lack of transportation kept you from meetings, work, or from getting things needed for daily living?No05/15/2022Housing Stability Vital SignAnswerDate RecordedIn the last 12 months, was there a time when you were not able to pay the mortgage or rent on time?No05/15/2022In the last 12 months, how many places have you lived?In the last 12 months, was there a time when you did not have a steady place to sleep or slept in ashelter (including now)?No 05/15/2022[place] Safety & EnvironmentAnswerDate RecordedFear of Current or Ex-PartnerNot on file08/06/2023Emotionally AbusedNot on file08/06/2023hysically AbusedNot on file08/06/2023Sexually AbusedNot on file08/06/2023hysically or Sexually AbusedNot on file08/06/2023CommentsUnknownSex and Gender InformationValueDate RecordedSex Assigned at BirthNot on fileLegal SexFemale 12/12/2021 12:34 AM EDTGender IdentityNot on fileSexual OrientationNot on file Last Filed Vital Signs Vital SignReadingTime TakenCommentsBlood Uwkznxoo167/5904 1:01 PM EDT Pulse--Temperature--Respiratory Hovv006009/17/2020 12:56 PM EDTOxygen Saturation 97%09/17/2020 1:01 PM EDTInhaled Oxygen Concentration--Oebozd52.8 kg (167 lb) 05/15/2022 1:34 PM LDXByfjvc563.6 cm (5' 4 )05/15/2022 1:34 PM ESTBody Mass Index28.6705/15/2022 1:34 PM EST Plan of Treatment Health MaintenanceDue DateLast DoneCommentsCT Dyahrftfmixh39/07/1957Colonoscopy 1955Colorectal Cancer Uiwwppfif60/07/1956FIT-DNA1955FIT1955 FOBT1955Medicare Annual Wellness (AWV)1955 3944Fzxgdcgaaxlxa39/07/1956 Depression Umkhiwayb36/07/9403Fxzirqfhg86/07/1997Zoster Vaccines (1 of 2) , 11/12/2017Fall Risk Tqnfhsrme50/07/2022OVID-19 Vaccine (2024- season)2025Influenza Vaccine (#1), 05/30/2020, 04/15/2020, Additional history existsAdult Wanajvd5209/25/2027 09/24/2017, 04/23/2007, 05/06/2004, Additional history existsPneumococcal Vaccine: 50+ HaihkPqylzwiin46/14/2022, 09/24/2017, 07/13/2001HIB VaccinesAged OutNo longer eligible based on patient's age to complete this topicHPV Vaccines Aged OutNo longer eligible based on patient's age to complete this topicIPV VaccinesAged OutNo longer eligible based on patient's age to complete this topic Meningococcal B VaccineAged OutNo longer eligible based on patient's age to complete this topicMeningococcal VaccineAged OutNo longer eligible based on patient's age to complete this topicRotavirus VaccinesAged OutNo longer eligible based on patient's age to complete this topic Insurance LUCINDA RAJPUT [id number]
--- OUTSIDE RECORDS SUMMARY | 2025-05-08 08:27 | XMS_ITS | Clinical Summary ---
Author Organization [facility] Address [address] [place] [address] Care Team Providers Care Receiving Operator Name Role Phone Myron Brewster MD Primary Care Provider [phone] Allergies Active AllergyReactionsCriticalityNoted DateCommentsErythromycinGI intolerance 01/04/20248630Apojx98/01/2022 Other Reaction(s): Not available ZtnkgbfmusxBdvrUgh52/01/2022 Medications MedicationSigDispense QuantityRefillsLast FilledStart DateEnd DateStatus cholecalciferol (Vitamin D-3) 50 MCG (1999 [place]) capsule Take 2,000 Units by mouth 1 (one) time each day at the same timeActive pantoprazole (Protonix) 40 MG EC tablet Take 40 mg by mouth 1 (one) time each day at the same timeActive Multiple Vitamins-Minerals (multivitamin with minerals) tablet Take 1 tablet by mouth DailyActive Active Problems ProblemNoted DateDiagnosed NxasQqicrztheth66/14/2024GERD (gastroesophageal reflux disease)01/27/2024Screening for malignant neoplasm of colon01/27/2024 Seasonal allergic ybosrxki41/14/2024MI 30.0-30.9,adult01/27/2024hronic chlwclisvnjzq96/14/0187Aqcbqlmffuermm68/19/2024Neck rgypwkyi14/19/2024 Mekvhhhokguxs17/18/2024 Family History Medical HistoryRelationNameCommentsHeart failureFatherWilliam WilsonStroke Maternal GrandmotherMyrtle AbbiCancerMotherShishilpa NicholasbreastDiabetesMother Preethi NicholasHeart failureMotherSmary NicholasRelationNameStatusCommentsFather Reyes FangMaternal GrandmotherMyrtmaddy Nicholas Social History Tobacco UseTypesPacks/DayYears UsedDateSmoking Tobacco: LxqtbeJtwcvjqojs113Qwhd: 2002Smokeless Tobacco: Never Tobacco Cessation:Counseling Given: Not Answered Alcohol UseStandard Drinks/WeekCommentsNot Currently0 (1 standard drink = 0.6 oz pure alcohol)CommentsUnknownSex and Gender InformationValueDate Recorded Sex Assigned at BirthNot on fileLegal RvkTtwhzy76/05/2024 1:27 PM ESTGender IdentityNot on fileSexual OrientationNot on file Last Filed Vital Signs Vital SignReadingTime TakenCommentsBlood Elkqapvi440/68008/29/2024 1:30 PM EDT Kmiek834708/29/2024 1:30 PM EDTTemperature--Respiratory Rate--Oxygen Saturation-- Inhaled Oxygen Concentration--Oppujk50.4 kg (175 lb)08/29/2024 1:30 PM EDTHeight 162.6 cm (5' 4 )08/29/2024 1:30 PM EDTBody Mass Index30.04008/29/2024 1:30 PM EDT Plan of Treatment Not on file Insurance Care Teams Team MemberRelationshipSpecialtyStart Date Myron Brewster MD PCP - GeneralFamily Medicine08/18/23
== END 2025-05-08 08:23 | disposition home or self-care (01) ==
LOC: MAMMO 08:22
PROVIDERS: PCP Family Medicine; Visit Provider Family Medicine
DX: Z12.31 Encounter for screening mammogram for malignant neoplasm of breast (principal)
CPT/HCPCS: 77063; 77067